=== PATIENT | female | born 1945 | race Caucasian/White ===

== ENCOUNTER 2020-09-02 07:24 | Emergency (ER) | payer MEDICARE, MEDICAID, SELFPAY ==
[2020-09-02 07:26] VITALS: BP 155/56; PULSE 82; RESP 18; TEMP 36.3; O2SAT 94; BMI 24.8
--- NOTE | 2020-09-02 07:31 | XR_ITS ---
WS: [id number] XR foot RT min 3V* [id number] REASON FOR EXAM: pain FINDINGS: The joint spaces of the forefoot, midfoot, and hindfoot are relatively well preserved for age. No fracture or other focal bony lesion is identified. No soft tissue abnormality is seen. Small enthesophyte at the insertion of Achilles tendon on the calcaneus. XR/XR foot RT min 3V* [id number] IMPRESSION: Small calcaneal enthesophyte as above. No other significant abnormality noted.
[2020-09-02 07:40] VITALS: BP 155/56; PULSE 74; RESP 16; O2SAT 92
--- NOTE | 2020-09-02 07:53 | ED_ITS ---
HPI - Extremity Problem General: Chief complaint: Extremity Injury, Lower Stated complaint: Right Foot is Swollen/Pain Time Seen by Provider: 09/02/20 07:29 History of Present Illness: HPI Narrative: 74-year-old female complaining of pain in the right foot, on the sole of the foot at the metatarsal heads. Patient states that she has had this off and on for some time and it is particularly worse today. She was outside doing more things on her feet yesterday. She denies any trauma denies any specific injury to the foot. She not previously had surgery on her feet. MD Complaint: extremity pain and joint pain Onset (ago): week(s) Pain Consistency: intermittent Location: right and lower extremity (Right foot) Quality: aching Radiation: none Relieving factors: rest Exacerbating factors: weight bearing and walking Associated symptoms: Reports arthralgias; Deny chest pain, fever(s), myalgias, rash or short of breath Review of Systems Const: Denies: fever(s) ENMT: Denies: throat pain, ear or mastoid pain, nasal discharge or nasal congestion Card: Denies: chest pain Resp: Denies: dyspnea, productive cough or non-productive cough GI: Denies: abdominal pain, nausea, vomiting, hematemesis, coffee ground emesis, diarrhea, constipation, bloating, hematochezia or melena : Denies: flank pain, difficulty voiding, dysuria, urinary frequency or urinary urgency Skin/Breast: Denies: rash Physical Exam Const: COMMON NORMALS: no acute distress GENERAL APPEARANCE: cooperative and comfortable ORIENTATION/CONSCIOUSNESS: Yes awake, Yes oriented to person, Yes oriented to place and Yes oriented to time HENMT: COMMON NORMALS: normocephalic, atraumatic and hearing grossly normal bilaterally HEAD & SCALP: normocephalic and atraumatic Extremity: COMMON NORMALS: normal to inspection, capillary refill normal, no clubbing, cyanosis or edema, no calf tenderness and no pedal edema NARRATIVE EXTREMITY EXAM: Homans negative. Tenderness on the plantar surface of the metatarsal heads no swelling no erythema first metatarsal joint is intact without erythema redness or exquisite tenderness on passive motion or palpation. There is no deformity of the foot there is no swelling in the calf there is no swelling in the foot itself there are some prominent vessels but no tender vessels no evidence of a superficial thrombophlebitis. There is no evidence of any lacerations or puncture wounds. Dorsalis pedis and posterior tibialis pulses are normal. Neuro: SENSORIUM/ORIENTATION: Yes oriented to person, Yes oriented to place and Yes oriented to time Skin: COMMON NORMALS: no rashes or lesions noted GENERAL SKIN EXAM: no rashes or lesions noted Course Vital Signs: Vital signs: Vital Signs Temperature 97.3 F L 09/02/20 07:26 Pulse Rate 71 09/02/20 08:07 Respiratory Rate 18 09/02/20 08:07 Blood Pressure 141/68 09/02/20 08:07 Pulse Oximetry 93 09/02/20 08:07 MDM - Extremity (Nontraumatic) MDM Narrative: Medical decision making narrative: X-ray is unremarkable for any acute fracture. We will go ahead and discharge patient home with diclofenac and refer to podiatry. Recommend rest. Case management to assist with referral to Dr. Adamson. Discharge Plan Discharge Patient Disposition: Home Clinical Impression: Metatarsalgia of right foot Condition: Stable Prescriptions: New diclofenac sodium 75 mg tablet,delayed release (DR/EC) 75 mg PO Q12H PRN (Reason: pain) Qty: 20 RF: 0 Discharge Orders: Discharge Order (Routine); Ordered 09/02/20 Ordered By: Dave Morse Referrals: Roverto Arnold MD [Primary Care Provider] - Discharge Diet: Usual diet Discharge Activity: Increase activity as tolerated Activity Restrictions/Additional Instructions: Case management will assist you in getting in to see the director of construction Dr. 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
[2020-09-02 08:07] VITALS: BP 141/68; PULSE 71; RESP 18; O2SAT 93
--- NOTE | 2020-09-02 08:11 | PC.NURSE ---
Patient requested counseling case manager call her daughter Gavi for appointments at [phone]
--- NOTE | 2020-09-02 09:39 | DCPLANNER ---
manager professional development had message to schedule a follow up appointment for patient with ortho. manager professional development called the ortho clinic, spoke with Pat, gave clinic patients information. manager professional development was told that patients information would be printed and reviewed. Clinic will call patient with appointment information.
--- NOTE | 2020-09-05 15:41 | DCPLANNER ---
Patient had a follow up appointment scheduled for 09.05.20 with ortho - patient did attend the appointment.
== END 2020-09-02 08:07 | disposition home or self-care (01) ==
PROVIDERS: Emergency Provider Family Medicine; PCP Family Medicine
DX: M77.41 Metatarsalgia, right foot (principal)
CPT/HCPCS: 12345; 73630; 99281; 99282

== ENCOUNTER 2020-09-06 01:20 | Observation (INO) | payer MEDICARE, MEDICAID, SELFPAY ==
[2020-09-06] VITALS (25 sets, daily range): BP systolic 105–199; BP diastolic 56–110; PULSE 64–96; RESP 13–24; TEMP 36.1–36.6; O2SAT 95–99; BMI 24.7
--- NOTE | 2020-09-06 01:30 | XR_ITS ---
WS: [id number] Portable AP upright chest, 09/06/2020 Clinical Data: syncope Comparison: Portable chest, 11/12/2018. Findings: No nodules, masses or effusions are seen. The heart is normal. The pulmonary vascularity is not increased. No pneumonia or pneumothorax is seen. Midline sternotomy sutures are present. There a re monitor leads on the chest wall. The aortic arch and descending aorta show calcification and tortu osity. XR/XR chest 1V portable [id number] Impression: Atherosclerosis.
--- NOTE | 2020-09-06 01:31 | ECG_ITS ---
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 Measurements Intervals [place] Rate: 84 P: 59 WI: 177 QRS: 22 QRSD: 89 T: 87 QT: 376 QTc: 445 Interpretive Statements SINUS RHYTHM ST DEVIATION AND MODERATE T-WAVE ABNORMALITY, CONSIDER ANTERIOR ISCHEMIA [-0.1+ mV T WAVE IN V3/V4] Compared to ECG 11/14/2018 09:19:31 Indeterminate axis no longer present T-wave abnormality still present Possible ischemia still present Electronically Signed On 09-06-2020 19:59:21 OYSTERMAN by Johnny Trevizo M.D. [id number] f
--- NOTE | 2020-09-06 01:46 | W.ED.CHESTPA ---
Documented by User: KEREN Musa 09/06/20 03:08 HPI - Chest Pain General: Chief Complaint: Chest Pain Stated Complaint: chest pain Time Seen by Provider: 09/06/20 01:21 Source: patient and EMS Mode of arrival: EMS Limitations: no limitations History of Present Illness: HPI narrative: 74-year-old female patient presents via EMS to the emergency department with onset of chest pain. She reports chest pain started between 8 and 9 PM tonight. States took 4 nitroglycerin tablets, 325 aspirin, chest pain resolved by the time EMS arrived. She denies chest pain upon exam, arrival to the ED. She has history of bypass surgery, coronary artery disease, reports recent successful stent procedure for CAD, grafted artery. Reports valvular disease, poor historian with cardiac disease. 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 Most recent stent placement March 2020, [facility] in [place]. 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 Onset (ago): hour(s) (4) Timing of current episode: constant and now resolved Prior episodes: Yes Onset: during rest (While crocheting) Pain location: substernal, left chest and right chest Pain radiation: left arm and left shoulder Severity: moderate Quality: aching, heaviness and similar to prior MA Relieving factors: nitroglycerin Exacerbating factors: nothing Associated symptoms: Reports dyspnea and palpitations; Deny abdominal pain, diaphoresis, fever(s), nausea or vomiting Treatment prior to arrival: aspirin and nitroglycerin Review of Systems General: Reports: 10 or more systems reviewed and unremarkable except in HPI and below Const: Denies: fever(s), chills or diaphoresis Eyes: Denies: blurry vision or eye redness ENMT: Denies: throat pain, dental pain or disequilibrium Card: Reports: chest pain, palpitations, swelling of feet/ankles and dyspnea on exertion; Denies: irregular heart rhythm Resp: Reports: dyspnea; Denies: wheezing or pain on inspiration GI: Denies: abdominal pain, nausea or vomiting : Denies: difficulty voiding or dysuria Musc: Denies: neck pain or back pain Skin/Breast: Denies: rash or pruritus Neuro: Denies: headache(s), weakness in extremities or behavioral changes Psych: Denies: anxiety or depression Mohit/Lymph: Denies: easy bruising PFSH ED PFSH: Medical History (Updated 09/06/20 @ 03:39 by Claudine Avina) Cholecystitis Coronary artery disease Diabetes Kidney disease, chronic, stage II (GFR 60-89 ml/min) Surgical History S/P CABG (coronary artery bypass graft) Family History (Updated 09/06/20 @ 03:01 by Emmanuelle Valdez MD) Other Family history non-contributory Social History Smoking and tobacco status: former smoker Physical Exam Const: COMMON NORMALS: no acute distress, patient oriented x3, healthy appearing and alert GENERAL APPEARANCE: cooperative, comfortable and well hydrated HENMT: COMMON NORMALS: normocephalic, Normal external nose present and moist oral mucous membranes HEAD & SCALP: normocephalic NOSE: Normal external nose present Eye: COMMON NORMALS: Equal, round and reactive pupils present and EOMs intact bilaterally GENERAL EYE: appearance normal, both eyes and all related structures PUPIL: Yes Equal, round and reactive pupils present Neck/C-Spine: COMMON NORMALS: full ROM and no lymphadenopathy GENERAL: Yes normal visual inspection and Yes trachea midline CERVICAL SPINE: Yes cervical ROM normal Lymph: LYMPHATIC: no lymphadenopathy noted Chest: COMMONS NORMALS: normal inspection of the chest and normal palpation of entire chest wall Resp: COMMON NORMALS: normal respiratory effort and clear to auscultation bilaterally EFFORT & INSPECTION: Yes able to speak in complete sentences AUSCULTATION: clear to auscultation bilaterally Cardio: COMMON NORMALS: regular rhythm, S1 normal heart sound present, S2 normal heart sound present and Peripheral pulses 2+ throughout RHYTHM: regular rhythm HEART SOUNDS: S1 normal heart sound present and S2 normal heart sound present PERIPHERAL PULSES: Peripheral pulses 2+ throughout GI: COMMON NORMALS: Normal to inspection, nondistended, normoactive bowel sounds present, Soft to palpation and non-tender INSPECTION: Yes normal to inspection PALPATION: Yes Soft to palpation : COMMON NORMALS: Yes no CVA tenderness BLADDER/KIDNEY EXAM: Yes no CVA tenderness Back/Pelvis: COMMON NORMALS: no CVA tenderness and thoracic and lumbar spine normal to inspection Extremity: COMMON NORMALS: normal to inspection and capillary refill normal Neuro: COMMON NORMALS: patient oriented x3 and no focal motor deficits SENSORIUM/ORIENTATION: Yes alert Psych: COMMON NORMALS: mental status grossly normal, Normal thought process present and cooperative ACTIVITY/MOTOR BEHAVIOR: Yes appropriate eye contact THOUGHT PROCESS: Normal thought process present Skin: COMMON NORMALS: no rashes or lesions noted and turgor normal GENERAL SKIN EXAM: no rashes or lesions noted and turgor normal Course ED course: 74-year-old female patient presents to the emergency department with chest pain, resolved after 4 nitroglycerin sublingual administered at home along with 324 mg aspirin. Upon arrival to the ED, chest pain resolved. Daughter is at bedside to assist with history. Transfer of care to Dr. Avina, 2-hour troponin pending. Vital Signs: Vital signs: Vital Signs Temperature 97.7 F 09/06/20 01:21 Pulse Rate 96 09/06/20 02:51 Respiratory Rate 17 09/06/20 02:51 Blood Pressure 156/86 09/06/20 02:51 Pulse Oximetry 96 09/06/20 02:51 MDM - Chest Pain Lab Data: Labs: Lab Results 09/06/20 09/06/20 09/06/20 Range/Units 01:49 01:49 01:49 WBC 8.6 (4.0-10.0) 10^3/ uL RBC 4.70 (4.1-5.3) 10^6/u L Hgb 12.6 (11.5-15.3) g/dL Hct 39.4 (37.0-47.0) % MCV 83.8 (81-99) fL MCH 26.8 L (28.0-34.0) pg MCHC 32.0 (30.0-36.0) g/dL RDW 13.6 (12.1-15.1) % Plt Count 219 (130-400) 10^3/c mm MPV 11.1 H (7.4-10.4) fL Neut % (Auto) 88.2 % Lymph % (Auto) 8.9 % [place] % (Auto) 2.4 % Eos % (Auto) 0.0 % Baso % (Auto) 0.0 % Neut # (Auto) 7.61 (1.8-7.7) 10^3/u L Lymph # (Auto) 0.8 (0.8-4.8) 10^3/u L [place] # (Auto) 0.2 (0.2-0.9) 10^3/u L Eos # (Auto) 0.0 (0.0-0.8) 10^3/u L Baso # (Auto) 0.0 (0.0-0.1) 10^3/u L Nucleated RBC % (a uto) 0 % Nucleated RBCs # 0.0 /100WBC D-Dimer (0-0.59) ug/mIFE U Sodium 138 (136-145) mmol/L Potassium 4.1 (3.5-5.1) mmol/L Chloride 100 (98-107) mmol/L Carbon Dioxide 25 (22-29) mmol/L Anion Gap 17.1 (5-19) BUN 18 (8-23) mg/dL Creatinine 1.3 H (0.5-0.9) mg/dL GFR Calculation Not Reportable Glucose 429 H (65-115) mg/dL Calculated Osmolal ity 306 H (285-295) mOsm/k g Calcium 10.4 (8.5-10.5) mg/dL Total Bilirubin 0.3 (0.15-1.2) mg/dL AST 26 (0-32) U/L ALT 21 (0-33) U/L Alkaline Phosphata se 57 (35-105) IU/L Troponin T Baselin e 23 H (0-10) ng/L NT-Pro-B Natriuret Pep 422 (0-450) pg/mL Total Protein 7.1 (6.6-8.7) g/dL Albumin 4.5 (3.5-5.2) g/dL Globulin 2.6 (1.3-4.6) g/dL 09/06/20 Range/Units 01:49 WBC (4.0-10.0) 10^3/ uL RBC (4.1-5.3) 10^6/u L Hgb (11.5-15.3) g/dL Hct (37.0-47.0) % MCV (81-99) fL MCH (28.0-34.0) pg MCHC (30.0-36.0) g/dL RDW (12.1-15.1) % Plt Count (130-400) 10^3/c mm MPV (7.4-10.4) fL Neut % (Auto) % Lymph % (Auto) % [place] % (Auto) % Eos % (Auto) % Baso % (Auto) % Neut # (Auto) (1.8-7.7) 10^3/u L Lymph # (Auto) (0.8-4.8) 10^3/u L [place] # (Auto) (0.2-0.9) 10^3/u L Eos # (Auto) (0.0-0.8) 10^3/u L Baso # (Auto) (0.0-0.1) 10^3/u L Nucleated RBC % (a uto) % Nucleated RBCs # /100WBC D-Dimer 0.42 (0-0.59) ug/mIFE U Sodium (136-145) mmol/L Potassium (3.5-5.1) mmol/L Chloride (98-107) mmol/L Carbon Dioxide (22-29) mmol/L Anion Gap (5-19) BUN (8-23) mg/dL Creatinine (0.5-0.9) mg/dL GFR Calculation Glucose (65-115) mg/dL Calculated Osmolal ity (285-295) mOsm/k g Calcium (8.5-10.5) mg/dL Total Bilirubin (0.15-1.2) mg/dL AST (0-32) U/L ALT (0-33) U/L Alkaline Phosphata se (35-105) IU/L Troponin T Baselin e (0-10) ng/L NT-Pro-B Natriuret Pep (0-450) pg/mL Total Protein (6.6-8.7) g/dL Albumin (3.5-5.2) g/dL Globulin (1.3-4.6) g/dL Imaging Data^: CXR: My impression: No acute findings, radiology interpretation pending EKG Data^: EKG 1: EKG interpretation date: 09/06/20 EKG interpretation time: 01:35 Prior EKG tracings: available for review Computer generated interpretation: Sinus rhythm, ST deviation and moderate T wave abnormality, abnormal ECG Discharge Plan Discharge Patient Disposition: Placed in Observation Clinical Impression: Chest pain Condition: Stable Prescriptions: No Action diclofenac sodium 75 mg tablet,delayed release (DR/EC) 75 mg PO Q12H PRN (Reason: pain) Qty: 20 RF: 0 Referrals: Roverto Arnold MD [Primary Care Provider] - Coding Level of Care Code ED Student Specialist for Chg Fwd Exam Comprehensive Documented by User: Claudine Avina 09/06/20 03:39 HPI - Chest Pain General: Chief Complaint: Chest Pain Stated Complaint: chest pain Time Seen by Provider: 09/06/20 01:21 PFS ED PFSH: Medical History (Updated 09/06/20 @ 03:39 by Claudine Avina) Cholecystitis Coronary artery disease Diabetes Kidney disease, chronic, stage II (GFR 60-89 ml/min) Surgical History S/P CABG (coronary artery bypass graft) Family History (Updated 09/06/20 @ 03:01 by Emmanuelle Valdez MD) Other Family history non-contributory Social History Smoking and tobacco status: former smoker Course Vital Signs: Vital signs: Vital Signs Temperature 97.7 F 09/06/20 01:21 Pulse Rate 96 09/06/20 02:51 Respiratory Rate 17 09/06/20 02:51 Blood Pressure 156/86 09/06/20 02:51 Pulse Oximetry 96 09/06/20 02:51 MDM - Chest Pain MDM Narrative: Medical decision making narrative: Patient is seen and examined by me, I agree with Nuvia Pritchard APN's assessment and plan. Patient has a history of cardiac disease receiving a stent just this last March. Patient's EKG is abnormal at baseline and her first troponin is slightly elevated. She is chest pain-free at this time. I endorsed the case to Dr. Valdez he is agreeable to admission for further evaluation and care. Lab Data: Attestation: I reviewed the patient's lab results. Labs: Lab Results 09/06/20 09/06/20 09/06/20 Range/Units 01:49 01:49 01:49 WBC 8.6 (4.0-10.0) 10^3/ uL RBC 4.70 (4.1-5.3) 10^6/u L Hgb 12.6 (11.5-15.3) g/dL Hct 39.4 (37.0-47.0) % MCV 83.8 (81-99) fL MCH 26.8 L (28.0-34.0) pg MCHC 32.0 (30.0-36.0) g/dL RDW 13.6 (12.1-15.1) % Plt Count 219 (130-400) 10^3/c mm MPV 11.1 H (7.4-10.4) fL Neut % (Auto) 88.2 % Lymph % (Auto) 8.9 % [place] % (Auto) 2.4 % Eos % (Auto) 0.0 % Baso % (Auto) 0.0 % Neut # (Auto) 7.61 (1.8-7.7) 10^3/u L Lymph # (Auto) 0.8 (0.8-4.8) 10^3/u L [place] # (Auto) 0.2 (0.2-0.9) 10^3/u L Eos # (Auto) 0.0 (0.0-0.8) 10^3/u L Baso # (Auto) 0.0 (0.0-0.1) 10^3/u L Nucleated RBC % (a uto) 0 % Nucleated RBCs # 0.0 /100WBC D-Dimer (0-0.59) ug/mIFE U Sodium 138 (136-145) mmol/L Potassium 4.1 (3.5-5.1) mmol/L Chloride 100 (98-107) mmol/L Carbon Dioxide 25 (22-29) mmol/L Anion Gap 17.1 (5-19) BUN 18 (8-23) mg/dL Creatinine 1.3 H (0.5-0.9) mg/dL GFR Calculation Not Reportable Glucose 429 H (65-115) mg/dL Calculated Osmolal ity 306 H (285-295) mOsm/k g Calcium 10.4 (8.5-10.5) mg/dL Total Bilirubin 0.3 (0.15-1.2) mg/dL AST 26 (0-32) U/L ALT 21 (0-33) U/L Alkaline Phosphata se 57 (35-105) IU/L Troponin T Baselin e 23 H (0-10) ng/L NT-Pro-B Natriuret Pep 422 (0-450) pg/mL Total Protein 7.1 (6.6-8.7) g/dL Albumin 4.5 (3.5-5.2) g/dL Globulin 2.6 (1.3-4.6) g/dL 09/06/20 Range/Units 01:49 WBC (4.0-10.0) 10^3/ uL RBC (4.1-5.3) 10^6/u L Hgb (11.5-15.3) g/dL Hct (37.0-47.0) % MCV (81-99) fL MCH (28.0-34.0) pg MCHC (30.0-36.0) g/dL RDW (12.1-15.1) % Plt Count (130-400) 10^3/c mm MPV (7.4-10.4) fL Neut % (Auto) % Lymph % (Auto) % [place] % (Auto) % Eos % (Auto) % Baso % (Auto) % Neut # (Auto) (1.8-7.7) 10^3/u L Lymph # (Auto) (0.8-4.8) 10^3/u L [place] # (Auto) (0.2-0.9) 10^3/u L Eos # (Auto) (0.0-0.8) 10^3/u L Baso # (Auto) (0.0-0.1) 10^3/u L Nucleated RBC % (a uto) % Nucleated RBCs # /100WBC D-Dimer 0.42 (0-0.59) ug/mIFE U Sodium (136-145) mmol/L Potassium (3.5-5.1) mmol/L Chloride (98-107) mmol/L Carbon Dioxide (22-29) mmol/L Anion Gap (5-19) BUN (8-23) mg/dL Creatinine (0.5-0.9) mg/dL GFR Calculation Glucose (65-115) mg/dL Calculated Osmolal ity (285-295) mOsm/k g Calcium (8.5-10.5) mg/dL Total Bilirubin (0.15-1.2) mg/dL AST (0-32) U/L ALT (0-33) U/L Alkaline Phosphata se (35-105) IU/L Troponin T Baselin e (0-10) ng/L NT-Pro-B Natriuret Pep (0-450) pg/mL Total Protein (6.6-8.7) g/dL Albumin (3.5-5.2) g/dL Globulin (1.3-4.6) g/dL Discharge Plan Discharge Patient Disposition: Placed in Observation Clinical Impression: Chest pain Condition: Stable Prescriptions: No Action diclofenac sodium 75 mg tablet,delayed release (DR/EC) 75 mg PO Q12H PRN (Reason: pain) Qty: 20 RF: 0 Referrals: Roverto Arnold MD [Primary Care Provider] - Coding Level of Care Code ED Student Specialist for Chg Fwd Exam Comprehensive
[2020-09-06 01:59] LABS: Hematocrit 39.4 % (37.0-47.0); Hemoglobin 12.6 g/dL (11.5-15.3); Lymphocytes # 0.8 10^3/uL (0.8-4.8); Lymphocytes % 8.9 %; Mean Corpuscular Hemoglobin 26.8 pg (28.0-34.0); Mean Corpuscular Volume 83.8 fL (81-99); Mean Platelet Volume 11.1 fL (7.4-10.4); Monocytes # 0.2 10^3/uL (0.2-0.9); Monocytes % 2.4 %; Neutrophils # 7.61 10^3/uL (1.8-7.7); Neutrophils % 88.2 %; Nucleated Red Blood Cells % 0 %; Platelet Count 219 10^3/cmm (130-400); Red Cell Distribution Width 13.6 % (12.1-15.1); White Blood Count 8.6 10^3/uL (4.0-10.0)
[2020-09-06 02:25] LABS: Troponin(5th) Baseline 23 ng/L (0-10)
[2020-09-06 02:34] LABS: Alanine Aminotransferase 21 U/L (0-33); Albumin Level 4.5 g/dL (3.5-5.2); Alkaline Phosphatase 57 IU/L (35-105); Anion Gap 17.1 (5-19); Aspartate Amino Transferase 26 U/L (0-32); Blood Urea Nitrogen 18 mg/dL (8-23); Calcium 10.4 mg/dL (8.5-10.5); Carbon Dioxide 25 mmol/L (22-29); Chloride 100 mmol/L (98-107); Globulin 2.6 g/dL (1.3-4.6); Glucose 429 mg/dL (65-115); NT Pro B Type Natriuretic Pept 422 pg/mL (0-450); Osmolality Calculated 306 mOsm/kg (285-295); Potassium 4.1 mmol/L (3.5-5.1); Sodium 138 mmol/L (136-145); Total Bilirubin 0.3 mg/dL (0.15-1.2); Total Protein 7.1 g/dL (6.6-8.7)
--- NOTE | 2020-09-06 02:51 | PM.HP ---
Providers/Chief Complaint Primary Care Provider: Roverto Arnold MD Chief Complaint: chest pain History of Present Illness Yadira Cruz is a 74 year old female who has history of coronary disease, four-vessel bypass(2009), chronic kidney disease(baseline creatinine 1.4) presenting to the hospital with chief complaint of chest pain. Patient is stating that her chest pain started around 9 PM while she was at rest crocheting, it was substernal radiating towards her left shoulder and left arm moderate intensity, similar to prior NV, she took 4 sublingual nitroglycerin which resolved her symptoms. This chest pain was not associated with nausea, vomiting or diaphoresis. This chest pain was excruciating, she thought she is going to . Cardiac cath June 2015 at [facility]. She was found to have small caliber left main. LAD with proximal 40-50% stenosis. Diagonal was grafted and sleetmute vessel with 80% stenosis. Occluded circumflex. RCA with large posterolateral segment with totally occluded PDA. The vein graft bifurcating to PDA and left circumflex. Distal segment of vein graft to posterior descending with 50% stenosis. 95% flow-limiting stenosis KUSHAL 2 flow in Y portion of vein graft to left circumflex. Widely patent vein graft to diagonal vessel. ORTIZ not grafted. Balloon angioplasty followed by drug-eluting stent 2.25 x 12 mm to vein graft to left circumflex Diagnostics in the ER revealed hypertension, tachycardia, was saturating well on room air, no active chest pain, troponin XX 3, EKG showing ST depression in the lateral leads which are not new Review of Systems Const: Denies: fever(s) Eyes: Denies: change in vision ENMT: Denies: throat pain Card: Reports: chest pain; Denies: syncope, pre-syncope or orthopnea Resp: Denies: dyspnea GI: Denies: abdominal pain : Denies: flank pain Musc: Denies: neck pain Skin/Breast: Denies: rash Neuro: Denies: headache(s) Psych: Denies: anxiety Endo: Denies: polyuria Mohit/Lymph: Denies: easy bruising All/Imm: Denies: urticaria Medications/Allergies Home Medications Medication Instructions Recorded Confirmed Last Taken Type diclofenac sodium 75 mg PO Q12H PRN #20 tab 09/02/20 Unknown Rx Allergies Allergy/AdvReac Type Severity Reaction Status Date / Time codeine Allergy ADR-Vomitin Verified 09/02/20 07:33 g epinephrine Allergy ALGY-Difficulty Verified 09/02/20 07:33 [From Primatene Mist] Breathing morphine Allergy ALGY-Redness Verified 09/02/20 07:33 of Skin PFSH Acute PFSH: Medical History Cholecystitis Coronary artery disease Diabetes GERD (gastroesophageal reflux disease) Hypothyroidism Kidney disease, chronic, stage II (GFR 60-89 ml/min) Peripheral neuropathy Stateline spotted fever Sleep apnea Surgical History History of right-sided carotid endarterectomy Hx of cholecystectomy S/P CABG (coronary artery bypass graft) Patient reports 3 times Family History Other Family history non-contributory Social History Smoking and tobacco status: former smoker Alcohol intake: never Substance/Drug Use: never Household members: family Housing: House Vitals/I&O/Wt Last Vital Signs Temp 97.7 F 09/06/20 01:21 Pulse 84 09/06/20 01:40 Resp 20 H 09/06/20 01:40 BP 168/98 09/06/20 01:40 Pulse Ox 96 09/06/20 01:40 Weight last 48 hrs Weight 61.235 kg Physical Exam Narrative: EXAM NARRATIVE: elderly female No acute respiratory distress No active chest pain Saturating well on 3L Nasal cannula Appears well-hydrated S1, S2, systolic murmur Abdomen soft nondistended bowel sounds present, no CVA tenderness Neurologically nonfocal exam EOMI, PERRLA Appropriate mood and affect No lower extremity edema gangrene or ulcer No signs of dehydration Data : 09/06/20 01:49 09/06/20 01:49 A&P Assessment and plan (1) Unstable angina: unstable angina Established coronary disease with history of CABG, chronic angina Chest pain resolved with nitroglycerin, EKG showing ST depression in anterolateral leads and lead II these changes are not new as compared to previous EKG No active chest pain, first troponin 23, Hemodynamically stable, will check D-dimer I will go ahead and increase her antianginal medication,, increase Imdur dose to 60 mg from 30mg, Ranexa dose to 1000mg twice daily, Her heart rate and blood pressure is not optimally controlled considering her multiple vessel coronary disease if her heart rate could be between 70-80 and blood pressure less than 130mmhg With increasing antianginal medication dosages monitor for any signs of bradycardia or hemodynamic changes I would not repeat stress test, consider cardiology consult in the morning for further recommendations Status: Acute Additional A&P Information Hypothyroidism: Continue home regimen of 75 mcg levothyroxine Type 2 diabetes: Moderate sliding scale DVT prophylaxis: Heparin Chronic kidney disease: Creatinine at baseline Full code Patient is not sure about dosages however I have reviewed previous records and added medications, kindly touch base with her pharmacy to get accurate dosages in the morning Attestations Medical Necessity Statement*: Anticipating discharge in less than 48 hours, I am monitoring her on telemetry because of recent increase in her antianginal medications to monitor hemodynamic effects Time Spent in Patient Care: (>than 50% of time spent in counselling and/or direct pt care on unit). 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
[2020-09-06 03:31] LABS: D Dimer 0.42 ug/mIFEU (0-0.59)
--- NOTE | 2020-09-06 03:31 | ECG_ITS ---
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 Measurements Intervals [place] Rate: 93 P: 70 IA: 180 QRS: 40 QRSD: 91 T: 69 QT: 394 QTc: 491 Interpretive Statements SINUS RHYTHM WITH SINUS ARRHYTHMIA INDETERMINATE AXIS NONSPECIFIC ST & T-WAVE ABNORMALITY Compared to ECG 09/06/2020 01:33:25 Indeterminate axis now present Possible ischemia no longer present T-wave abnormality still present Electronically Signed On 09-06-2020 20:21:05 VISUAL TRAINING AIDE by Johnny Trevizo M.D. [id number]
--- NOTE | 2020-09-06 05:00 | PC.SOCIAL ---
ED CM Visit: Patient lives with her spouse, Melecio. Her daughter Regina lives close and helps her with all needs. She shops for her, sets up her medication, and helps with housework. Has oxygen and CPAP from [facility]. Ask that we call to see if we can expedite process of her getting an Inogen portable from them. They have been trying to get it since the big tanks are hard for her to carry around. It had been ordered by Dr. Arnold. Daughter will pick her up. If she is here past visiting tomorrow they would like to complete a new advanced directive. She wants to make sure her daughter is listed as the one to make decisions, Regina Haney.
--- NOTE | 2020-09-06 07:30 | ECG_ITS ---
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 Measurements Intervals [place] Rate: 75 P: 3 MO: 166 QRS: 24 QRSD: 89 T: 97 QT: 413 QTc: 462 Interpretive Statements SINUS RHYTHM NONSPECIFIC ST & T-WAVE ABNORMALITY Compared to ECG 09/06/2020 03:33:21 Sinus arrhythmia no longer present Indeterminate axis no longer present T-wave abnormality still present Electronically Signed On 09-06-2020 20:17:37 ETHANOL QUALITY LEADER by Johnny Trevizo M.D. [id number]
[2020-09-06 08:24] LABS: Troponin 5 6HR 44.07 ng/L (0-10)
[2020-09-06 08:31] LABS: Glucose Point of Care 277 mg/dL (70-110)
[2020-09-06] MEDS: aspirin 81 mg EC Tablet PO (08:41)
[2020-09-06] MEDS: metoprolol succinate ER (24 HR) 25 mg Tablet PO (08:41)
[2020-09-06] MEDS: heparin 5,000 unit/mL INJ 1 mL 5000 UNIT SUBCUT (08:42)
[2020-09-06] MEDS: isosorbide mononitrate ER 60 mg Tablet PO (08:42)
[2020-09-06] MEDS: ranolazine (12HR) 500 mg Tablet 1000 MG PO ×2 (08:42→17:47)
[2020-09-06 08:59] LABS: Troponin 5 6HR Delta 21.07 ng/L (0-12)
--- NOTE | 2020-09-06 09:47 | USCV_ITS ---
Yadira Cruz Age: 74 Gender: F : 1945 Exam Date: 09/06/2020 10:08 Ordering Phys: Shyann Roberson MD Technologist: Rene Ly Exam Location: [facility] [place] Indication: MURMUR BP: 152 / 67 HR: 86 Rhythm: Sinus Technical Quality: Fair MEASUREMENTS (Male / Female) Normal Values 2D ECHO LV Diastolic Diameter PLAX 2.5 cm 4.2 - 5.9 / 3.9 - 5.3 cm LV Systolic Diameter PLAX 2.2 cm IVS Diastolic Thickness 0.8 cm 0.6 - 1.0 / 0.6 - 0.9 cm IVS Systolic Thickness 1.1 cm LVPW Diastolic Thickness 1.0 cm 0.6 - 1.0 / 0.6 - 0.9 cm LVPW Systolic Thickness 1.2 cm LVOT Diameter 2.0 cm LV Ejection Fraction 2D Teich 27.9 % LV Ejection Fraction MOD 2C 71.5 % LV Ejection Fraction 2C AL 71.2 % LA Diameter 3.5 cm LA Width 3.0 cm LA Height 4.4 cm RA Width 2.7 cm RA Height 3.7 cm Aorta at Sinotubular Diameter 2.5 cm M-MODE LV Diastolic Diameter MM 5.6 cm 4.2 - 5.9 / 3.9 - 5.3 cm LV Systolic Diameter MM 3.6 cm LV Ejection Fraction MM Teich 63.8 % IVS Diastolic Thickness MM 0.9 cm 0.6 - 1.0 / 0.6 - 0.9 cm IVS Systolic Thickness MM 1.3 cm LVPW Diastolic Thickness MM 1.3 cm 0.6 - 1.0 / 0.6 - 0.9 cm LVPW Systolic Thickness MM 1.5 cm RV Diastolic Diameter MM 1.4 cm Aortic Annulus Diameter 3.2 cm LA Ao Ratio MM 1.1 MV E Point Septal Separation 1.4 cm DOPPLER AV Peak Velocity 161.0 cm/s LVOT Peak Velocity 94.0 cm/s AV Area Cont Eq vti 2.2 cm squared AV Area Cont Eq pk 1.8 cm squared MV Area PHT 5.0 cm squared Mitral E to A Ratio 0.7 MV E' Velocity 36.0 cm/s Mitral E to MV E' Ratio 7.8 Mitral E to LV E' Lateral Ratio 6.8 Mitral E to LV E' Septal Ratio 9.5 TR Peak Velocity 229.0 cm/s TR Peak Gradient 21.0 mmHg TV Peak E Velocity 78.0 cm/s Right Atrial Pressure 3.0 mmHg Pulmonary Artery Systolic Pressu 24.0 mmHg FINDINGS Left Ventricle Normal left ventricular size and systolic function, EF 77 %. Mild left ventricular hypertrophy. Relative hypokinesia of the mid and apical septal segment . grade I/IV diastolic dysfunction (abnormal relaxation filling pattern), normal to mildly elevated filling pressures. Right Ventricle The right ventricle is normal in size and function. Right Atrium The right atrium is normal in size. Left Atrium Mildly increased left atrial size. Mitral Valve Mild mitral annular calcification. Aortic Valve Thickened aortic valve. Tricuspid Valve Trace tricuspid valve regurgitation. Pulmonic Valve Pulmonic valve not well visualized. Pericardium Normal pericardium without effusion. Aorta Normal ascending aorta dimension. CONCLUSIONS Normal left ventricular size and systolic function, EF 77 %. Mild left ventricular hypertrophy. Relative hypokinesia of the mid and apical septal segment . grade I/IV diastolic dysfunction (abnormal relaxation filling pattern), normal to mildly elevated filling pressures. Mildly increased left atrial size. Thickened aortic and mitral valves with mild mitral annular calcification Trace tricuspid valve regurgitation. There is no pericardial effusion. There are no intracardiac masses. Compared to the study from my 06/03/2015, there may not be a significant change Dr Moris Gee MD FACC (Electronically Signed) Final Date: 06 September 2020 13:18 S
--- NOTE | 2020-09-06 10:03 | P.CONIM_ITS ---
Providers/Reason For Consult Consulting Physican/Specialty*: VLAD Gerard/cardiology Reason for Consult*: Patient with history of coronary artery disease, previous coronary artery bypass surgery and PCI, presenting with chest pain and elevated troponin T Attending Physician: Shyann Roberson MD Primary Care Provider: Roverto Arnold MD History of Present Illness History of Present Illness Yadira Cruz is a 74 year old female with a previous history of coronary artery disease, status post coronary artery bypass surgery, status post PCI of the vein graft to circumflex artery, is now present with complaints of prolonged episode of chest pain. Ms. Cruz has a complicated cardiovascular history. According to her daughter, she had so far, for open heart surgeries and 3 times stent placement. The first open heart surgery was done in [place]. The other 3 were done at the [facility] along with the PCI's. She had the most recent PCI in April of this year. The details of these are not available. According the patient, she has very small veins. She also had some bleeding complications after the last PCI. She has been having chest pains off and on for the last many years. Usually these pains go away with 1 sublingual nitro. Last night, she had the pain more severe and lasted longer. The first episode of pain was 8/10 intensity. It was mid substernal, radiating to the shoulder and the left arm. She might have had some associated shortness of breath. She took 1 sublingual nitro. After couple of minutes, the pain started subsiding. She had the pain returned after 30 minutes or so. This time it was more intense. She took another sublingual nitro. This time again, the pain went away in couple of minutes, to return back within 30 minutes or so. She had four similar episodes of pain requiring a total of 4 sublingual nitroglycerin tablets. Because of the recurrent episodes of chest pains with more severe intensity of greater than 10/10, she decided to come to the hospital. She also took four full aspirin at home. After taking the aspirin, she has not had any recurrence of pain. No recurrence of chest pain, since hospital admission. She denies any fever or chills. No cough. No other specific complaints at this time. Patient is known to have high blood pressure, dyslipidemia, old CVA, type 2 diabetes and? COPD. She has been compliant with medications. She is being followed up at the [facility]. She been to [facility] and [facility]. Cardiac catheterization at the [facility], in June 2015 She was found to have small caliber left main. LAD with proximal 40-50% stenosis. Diagonal was grafted and venetie vessel with 80% stenosis. Occluded circumflex. RCA with large posterolateral segment with totally occluded PDA. The vein graft bifurcating to PDA and left circumflex. Distal segment of vein graft to posterior descending with 50% stenosis. 95% flow-limiting stenosis KUSHAL 2 flow in Y portion of vein graft to left circumflex. Widely patent vein graft to diagonal vessel. ORTIZ not grafted. Balloon angioplasty followed by drug-eluting stent 2.25 x 12 mm to vein graft to left circumflex Apparently we do not have the cardiac colorization data from April 2020 Review of Systems Narrative: CONSTITUTIONAL: No fever or chills. EYES: No blurring of vision or other visual disturbances lately. ENT: No hoarseness of voice, auditory disturbances or sore throat. CARDIOVASCULAR: As mentioned above. RESPIRATORY: No significant cough. GASTROINTESTINAL: No hematemesis or melena. GENITOURINARY: No dysuria or hematuria. INTEGUMENTARY: No skin rashes or history of skin cancer. NEURO: History of CVA PSYCHIATRIC: No history of psychosis or major depression. HEMATOLOGIC: No bleeding disorders or significant anemia. ENDOCRINE: History of type 2 diabetes MUSCULOSKELETAL: No recent joint pain or swelling. ALLERGY/IMMUNOLOGY: As mentioned above. Meds/Allergies Home Medications and Allergies Home Medications Medication Instructions Recorded Confirmed Last Taken Type DILT-CD 120 mg PO DAILY 09/06/20 09/06/20 09/04/20 09:00 History Levemir U-100 Insulin 40 unit SUBCUT BID 09/06/20 09/06/20 09/04/20 21:00 History albuterol 90 mcg INHALATION Q6H PRN 09/06/20 09/06/20 Unknown History aspirin 81 mg PO DAILY 09/06/20 09/06/20 Unknown History clopidogrel 75 mg PO DAILY 09/06/20 09/06/20 Unknown History diltiazem HCl 120 mg PO DAILY 09/06/20 09/06/20 Unknown History empagliflozin [Jardiance] 10 mg PO DAILY 09/06/20 09/06/20 09/04/20 09:00 History fenofibrate nanocrystallized 145 mg PO DAILY 09/06/20 09/06/20 Unknown History furosemide 20 mg PO DAILY 09/06/20 09/06/20 Unknown History furosemide 20 mg PO DAILY 09/06/20 09/06/20 09/04/20 09:00 History insulin lispro [Humalog KwikPen See Rx Instructions .ROUTE .COMPLEX 09/06/20 09/06/20 Unknown History Insulin] isosorbide mononitrate 30 mg PO DAILY 09/06/20 09/06/20 Unknown History isosorbide mononitrate 30 mg PO DAILY 09/06/20 09/06/20 09/04/20 History levothyroxine 50 mcg PO DAILY 09/06/20 09/06/20 Unknown History metoprolol tartrate 12.5 mg PO BID 09/06/20 09/06/20 Unknown History metoprolol tartrate 12.5 mg PO BID 09/06/20 09/06/20 09/04/20 21:00 History multivitamin 1 tab PO DAILY 09/06/20 09/06/20 Unknown History pantoprazole 40 mg PO DAILY 09/06/20 09/06/20 Unknown History pantoprazole 40 mg PO DAILY 09/06/20 09/06/20 09/04/20 09:00 History potassium chloride 10 meq PO BID 09/06/20 09/06/20 Unknown History ranolazine 500 mg PO BID 09/06/20 09/06/20 Unknown History ranolazine 500 mg PO DAILY 09/06/20 09/06/20 09/04/20 History ropinirole 2 mg PO DAILY 09/06/20 09/06/20 Unknown History ropinirole [Requip] 2 mg PO DAILY 09/06/20 09/06/20 09/04/20 21:00 History rosuvastatin 10 mg PO DAILY 09/06/20 09/06/20 Unknown History rosuvastatin 10 mg PO DAILY 09/06/20 09/06/20 09/04/20 History Allergies Allergy/AdvReac Type Severity Reaction Status Date / Time codeine Allergy ADR-Vomitin Verified 09/02/20 07:33 g epinephrine Allergy ALGY-Difficulty Verified 09/02/20 07:33 [From Primatene Mist] Breathing morphine Allergy ALGY-Redness Verified 09/02/20 07:33 of Skin Current Medications Current Medications Generic Name Dose Route Start Last Admin Trade Name Gregory PRN Reason Stop Dose Admin Aspirin 81 mg 09/06/20 09:00 09/06/20 08:41 Aspirin 81 Mg Ec Tablet PO 81 mg DAILY JOSEF Administration Heparin Sodium (Beef Lung) 5,000 unit 09/06/20 09:00 09/06/20 08:42 Heparin 5,000 Unit/Ml Inj 1 Ml SUBCUT 5,000 unit Q8H JOSEF Administration Insulin Aspart 0 unit 09/06/20 08:23 09/06/20 09:08 Insulin Aspart 100 Unit/1 Ml SUBCUT 10 unit WM&BEDTIME JOSEF Administration Protocol Isosorbide Mononitrate 60 mg 09/06/20 09:00 09/06/20 08:42 Isosorbide Mononitrate Er 60 Mg Tablet PO 60 mg DAILY JOSEF Administration Metoprolol Succinate 25 mg 09/06/20 09:00 09/06/20 08:41 Metoprolol Succinate Er (24 Hr) 25 Mg Tablet PO 25 mg DAILY JOSEF Administration Ranolazine 1,000 mg 09/06/20 09:00 09/06/20 08:42 Ranolazine (12hr) 500 Mg Tablet PO 1,000 mg BID JOSEF Administration PFSH Acute PFSH: Medical History Cholecystitis Coronary artery disease Diabetes GERD (gastroesophageal reflux disease) Hypothyroidism Kidney disease, chronic, stage II (GFR 60-89 ml/min) Peripheral neuropathy [facility] Sleep apnea Surgical History History of right-sided carotid endarterectomy Hx of cholecystectomy S/P CABG (coronary artery bypass graft) Patient reports 3 times Family History Other Family history non-contributory Social History Smoking and tobacco status: former smoker Alcohol intake: never Substance/Drug Use: never Household members: family Housing: House Vitals/I&O/Wt Last Vital Signs Temp 97.7 F 09/06/20 01:21 Pulse 78 09/06/20 06:51 Resp 18 09/06/20 06:51 BP 148/71 09/06/20 06:51 Pulse Ox 96 09/06/20 06:51 Weight last 48 hrs Weight 135 lb Physical Exam Narrative: EXAM NARRATIVE: GENERAL: The patient is alert and oriented times three. Not in any acute distress. HEENT: No significant pallor, icterus or lymphadenopathy. The pupils are reactant to light. Oral cavity: There are no mucous membrane lesions. Funduscopic examination: The fundus is not visualized NECK: Trachea appears to be central. No masses noted. No JVD or thyromegaly appreciated. No carotid bruit. RESPIRATORY: Chest is symmetrical. No intercostals muscle retraction or any accessory muscle activation. There is no chest wall tenderness. Breath sounds are heard bilaterally. No rales or rhonchi heard. No evidence of any consolidation. BREASTS: Deferred. HEART: The PMI is in the 5th left intercostals space just in the midclavicular line. No palpable precordial events. S1 and S2 are normal. No S3 or S4 heard. Short systolic murmur in the mitral area. No pericardial rub or any click heard. ABDOMEN: No vessel pulsations or distention. No tenderness. No organomegaly appreciated. No abdominal bruit. Bowel sounds are normally heard. : Deferred. RECTAL: Deferred. LYMPHATIC: No lymphadenopathy noted in the neck or groin. EXTREMITIES: No edema or cyanosis. No clubbing. The dorsalis pedis and posterior pulses are palpable but weak bilaterally. MUSCULOSKELETAL: No acute joint deformities or swelling SKIN: There are no significant scars or skin rash noted. NEUROPSYCHIATRIC: The patient is alert and oriented x3. Appears to be in a good mood. The higher functions are grossly within normal limits. No tremors or rigidity noted. Data Labs: Other Labs: Laboratory Last Values WBC 8.6 10^3/uL (4.0- 10.0) 09/06/20 01:49 RBC 4.70 10^6/uL (4.1 -5.3) 09/06/20 01:49 Hgb 12.6 g/dL (11.5-1 5.3) 09/06/20 01:49 Hct 39.4 % (37.0-47.0 ) 09/06/20 01:49 MCV 83.8 fL (81-99) 09/06/20 01:49 MCH 26.8 pg (28.0-34. 0) L 09/06/20 01:49 MCHC 32.0 g/dL (30.0-3 6.0) 09/06/20 01:49 RDW 13.6 % (12.1-15.1 ) 09/06/20 01:49 Plt Count 219 10^3/cmm (130 -400) 09/06/20 01:49 MPV 11.1 fL (7.4-10.4 ) H 09/06/20 01:49 Neut % (Auto) 88.2 % 09/06/20 01:49 Lymph % (Auto) 8.9 % 09/06/20 01:49 Shackelford % (Auto) 2.4 % 09/06/20 01:49 Eos % (Auto) 0.0 % 09/06/20 01:49 Baso % (Auto) 0.0 % 09/06/20 01:49 Neut # (Auto) 7.61 10^3/uL (1.8 -7.7) 09/06/20 01:49 Lymph # (Auto) 0.8 10^3/uL (0.8- 4.8) 09/06/20 01:49 Shackelford # (Auto) 0.2 10^3/uL (0.2- 0.9) 09/06/20 01:49 Eos # (Auto) 0.0 10^3/uL (0.0- 0.8) 09/06/20 01:49 Baso # (Auto) 0.0 10^3/uL (0.0- 0.1) 09/06/20 01:49 Nucleated RBC % (a uto) 0 % 09/06/20 01:49 Nucleated RBCs # 0.0 /100WBC 09/06/20 01:49 D-Dimer 0.42 ug/mIFEU (0- 0.59) 09/06/20 01:49 Sodium 138 mmol/L (136-1 45) 09/06/20 01:49 Potassium 4.1 mmol/L (3.5-5 .1) 09/06/20 01:49 Chloride 100 mmol/L (98-10 7) 09/06/20 01:49 Carbon Dioxide 25 mmol/L (22-29) 09/06/20 01:49 Anion Gap 17.1 (5-19) 09/06/20 01:49 BUN 18 mg/dL (8-23) 09/06/20 01:49 Creatinine 1.3 mg/dL (0.5-0. 9) H 09/06/20 01:49 GFR Calculation Not Reportable 09/06/20 01:49 Glucose 429 mg/dL (65-115 ) H 09/06/20 01:49 POC Glucose 277 mg/dL (70-110 ) 09/06/20 08:28 Calculated Osmolal ity 306 mOsm/kg (285- 295) H 09/06/20 01:49 Calcium 10.4 mg/dL (8.5-1 0.5) 09/06/20 01:49 Total Bilirubin 0.3 mg/dL (0.15-1 .2) 09/06/20 01:49 AST 26 U/L (0-32) 09/06/20 01:49 ALT 21 U/L (0-33) 09/06/20 01:49 Alkaline Phosphata se 57 IU/L (35-105) 09/06/20 01:49 Troponin T Baselin e 23 ng/L (0-10) H 09/06/20 01:49 Troponin T 120 Min francy 32.80 ng/L (0-10) H 09/06/20 03:55 Delta Troponin T 9.80 ABS# (0-10) 09/06/20 03:55 Troponin T Hi Sens 6Hr 44.07 ng/L (0-10) H 09/06/20 07:43 Troponin T Hi Sens 6Hr Delta 21.07 ng/L (0-12) H* 09/06/20 07:43 NT-Pro-B Natriuret Pep 422 pg/mL (0-450) 09/06/20 01:49 Total Protein 7.1 g/dL (6.6-8.7 ) 09/06/20 01:49 Albumin 4.5 g/dL (3.5-5.2 ) 09/06/20 01:49 Globulin 2.6 g/dL (1.3-4.6 ) 09/06/20 01:49 EKG^: EKG 1: My Interpretation: Sinus rhythm with a sinus arrhythmia. Diffuse nonspecific ST-T changes. A&P Assessment and plan (1) Atherosclerotic heart disease of ven[place] coronary artery with unstable angina pectoris: The patient is a clinical features are consistent with an unstable angina. She has clinical features of a non-ST elevation myocardial infarction. The EKG changes are nonspecific. Status: Acute (2) Non-ST elevation myocardial infarction (NSTEMI): Patient may be treated with subcu Lovenox, nitrates, aspirin, Plavix, beta-ronen and the other current medications. Patient may be started on heparin IV, weight-based Status: Acute (3) Benign essential hypertension with target blood pressure below 140/90: Her blood pressure is currently of stage II. The antihypertensive medications need to be optimized. I may add amlodipine 5 mg p.o. daily in addition to the current medications. Status: Acute (4) Dyslipidemia associated with type 2 diabetes mellitus: Status: Acute (5) Chronic kidney disease (CKD): The creatinine was 1.3. Her kidney function need to be closely monitored. She may be given IV fluid , half-normal saline 75 cc/h. Status: Acute Qualifiers: Chronic kidney disease stage: stage 3 (moderate) Chronic kidney disease stage 3 subtype: stage 3a (GFR 45-59) Qualified Code(s): N18.31 - Chronic kidney disease, stage 3a Additional A&P Information An echocardiogram was done this morning. I will be reviewing the study. Based on the clinical progress on the results of the above, further recommendations will be made. In view of her history and the current clinical presentation, in order to further evaluate her coronary status, she may benefit from a cardiac catheterization, to further evaluate the coronary status as well as the graft status. This was discussed with the patient in detail which she understood well. Patient and the family is wanting to go back to [facility] to have further evaluation management of her condition, especially in view of her complex cardiovascular history. I contacted Dr. Hernandez at the [facility] in [place] and discussed the patient case. Dr. Hernandez is willing to accept the patient, for further evaluation management. I appraised Dr. Roberson about the patient's request and also Dr. Hernandez's willingness to accept this patient in transfer for further evaluation management. Dr. Bartholomew will make the arrangements for her transfer Thank you for the opportunity to evaluate this patient make these recommendations. Consult Attestations Medical Necessity Statement: Patient requires continued hospital stay for close monitoring and further management Coding Level of Care Code Acute Apparel Designer for g Fwd Diagnoses Atherosclerotic heart disease of [place] coronary artery with unstable angina pectoris I25.110 Non-ST elevation myocardial infarction (NSTEMI) I21.4 Benign essential hypertension with target blood pressure below 140/90 I10 Dyslipidemia associated with type 2 diabetes mellitus E11.69; E78.5 Chronic kidney disease (CKD) N18.31 Chronic kidney disease stage: stage 3 (moderate) Chronic kidney disease stage 3 subtype: stage 3a (GFR 45-59)
[2020-09-06] MEDS: clopidogrel 75 mg Tablet PO (10:36)
[2020-09-06] MEDS: levothyroxine 150 mcg Tablet 75 MCG PO (10:36)
[2020-09-06] MEDS: atorvastatin 40 mg Tablet PO (10:36)
[2020-09-06 12:22] LABS: Glucose Point of Care 229 mg/dL (70-110)
--- NOTE | 2020-09-06 13:05 | P.TS_ITS ---
Transfer Summary Providers Date of Admission: 09/06/20 03:49 Date of Discharge: 09/07/20 Attending Provider at Admission: Emmanuelle Valdez MD Attending Provider at Transfer: Shyann Roberson MD Consults: Cardiology Primary Care Provider: Roverto Arnold MD Anticipated Date of Transfer: Anticipated date of transfer: 09/07/20 Receiving Facility & Provider: Receiving Provider: [Dr. Ang, Dr. Hernandez] Receiving facility: [[facility]] Diagnoses at Discharge Discharge Diagnosis (1) Atherosclerotic heart disease of [place] coronary artery with unstable angina pectoris: Status: Chronic Permanent problem details: -s/p bypass x 4, stenting x 3 (2) Non-ST elevation myocardial infarction (NSTEMI): Status: Acute Permanent problem details: -with noted delta of 21 after 6 hrs -some non-specific ECG changes -on heparin drip, ASA, plavix, statin, BB, NTG, ranexa -Echo: EF=77%, G1DD, mild LVH, relative hypokinesia of the mid and apical septal segment, trace TR (3) Benign essential hypertension with target blood pressure below 140/90: Status: Chronic Permanent problem details: -amlodipine added for more optimal BP control (4) Dyslipidemia associated with type 2 diabetes mellitus: Status: Chronic Permanent problem details: -continue statin (5) Chronic kidney disease (CKD): Status: Chronic Permanent problem details: -on gentle IVF due to anticipated coronary angiogram -baseline Cr appears to be around 1.2-1.3 Qualifiers: Chronic kidney disease stage: stage 3 (moderate) Chronic kidney disease stage 3 subtype: stage 3a (GFR 45-59) Qualified Code(s): N18.31 - Chronic kidney disease, stage 3a Reason for Visit Reason for Visit: chest pain Hospital Course Hospital Course Patient was admitted to the cardiac stepdown unit and placed on telemetry monitoring. Due to presenting with complaints of chest pain she had her troponins trended with noted delta of 21 after [address] depression noted on her EKG though this does not appear to be an acute change. She has been chest pain-free since admission but due to her elevated troponins as well as her complicated coronary disease history including bypass surgery x4, stent ing x3, cardiology was consulted and recommended coronary angiogram as a next step in her evaluation. In the meantime she has been medically managed including aspirin, Plavix, Ranexa, heparin drip, statin and beta-ronen. Patient typically follows up with cardiology at [facility] in [place] and would like to have any additional work-up and intervention done there. Dr. Gee agrees with this assessment and we are currently working on transferring patient to [facility] under the care of Dr. Hernandez. There was a 24-hr delay in actual transfer once patient was accepted due to bed availability. This has now been resolved and she is going to be transferred this evening. Physical Exam Const: COMMON NORMALS: no acute distress and patient oriented x3 GENERAL APPEARANCE: cooperative and comfortable ORIENTATION/CONSCIOUSNESS: Yes awake HENMT: COMMON NORMALS: normocephalic, atraumatic, hearing grossly normal bilaterally and moist oral mucous membranes HEAD & SCALP: normocephalic and atraumatic Eye: COMMON NORMALS: Equal, round and reactive pupils present, EOMs intact bilaterally and conjunctivae normal CONJUNCTIVA: Yes conjunctivae normal PUPIL: Yes Equal, round and reactive pupils present Neck/C-Spine: COMMON NORMALS: full ROM GENERAL: Yes normal visual in spection and Yes trachea midline Resp: COMMON NORMALS: normal respiratory effort, No retractions, No use of accessory muscles and clear to auscultation bilaterally EFFORT & INSPECTION: Yes able to speak in complete sentences, Yes symmetric chest movement and No tachypneic AUSCULTATION: clear to auscultation bilaterally Cardio: COMMON NORMALS: regular rate, regular rhythm, S1 normal heart sound present, S2 normal heart sound present and No murmurs present (Cardio) RATE: regular rate RHYTHM: regular rhythm HEART SOUNDS: S1 normal heart sound present and S2 normal heart sound present GI: COMMON NORMALS: Normal to inspection, nondistended, normoactive bowel sounds present, Soft to palpation and non-tender INSPECTION: Yes central obesity PALPATION: Yes Soft to palpation Extremity: COMMON NORMALS: normal to inspection, full ROM and no clubbing, cyanosis or edema; negative for no pedal edema Neuro: COMMON NORMALS: patient oriented x3, moves all extremities, no focal motor deficits and no sensory deficits noted Psych: COMMON NORMALS: mental status grossly normal, Normal thought process present, cooperative, normal affect and speech normal SPEECH: Yes normal speech THOUGHT PROCESS: Normal thought process present Skin: COMMON NORMALS: no rashes or lesions noted, no jaundice, no petechiae and no mottling GENERAL SKIN EXAM: no rashes or lesions noted TS Data Data Completed and Pending: Completed Studies During Hospitalization Category Date Time Status XR chest 1V brian ble [id number] Stat Exams 09/06/20 01:30 Completed Pending at discharge Category Date Time Status PTT [Partial Thro mboplastin Time] S tat Lab 09/06/20 12:46 Ordered Platelet Count Q2 D Lab 09/08/20 04:00 Ordered Platelet Count Q2 D Lab 09/10/20 04:00 Ordered Platelet Count Ro utine Lab 09/06/20 12:50 Ordered CV echo complete* [id number] Urgent Ultrasound 09/06/20 09:47 Taken Labs from last 24 hours 09/06/20 09/06/20 09/06/20 12:06 08:28 07:43 WBC RBC Hgb Hct MCV MCH MCHC RDW Plt Count MPV Neut % (Auto) Lymph % (Auto) [place]aves % (Auto) Eos % (Auto) Baso % (Auto) Neut # (Auto) Lymph # (Auto) [place] # (Auto) Eos # (Auto) Baso # (Auto) Nucleated RBC % (a uto) Nucleated RBCs # D-Dimer Sodium Potassium Chloride Carbon Dioxide Anion Gap BUN Creatinine GFR Calculation Glucose POC Glucose 229 277 Calculated Osmolal ity Calcium Total Bilirubin AST ALT Alkaline Phosphata se Troponin T Baselin e Troponin T 120 Min [place] Delta Troponin T Troponin T Hi Sens 6Hr 44.07 H Troponin T Hi Sens 6Hr Delta 21.07 H* NT-Pro-B Natriuret Pep Total Protein Albumin Globulin 09/06/20 09/06/20 09/06/20 03:55 01:49 01:49 WBC RBC Hgb Hct MCV MCH MCHC RDW Plt Count MPV Neut % (Auto) Lymph % (Auto) [place] % (Auto) Eos % (Auto) Baso % (Auto) Neut # (Auto) Lymph # (Auto) [place] # (Auto) Eos # (Auto) Baso # (Auto) Nucleated RBC % (a uto) Nucleated RBCs # D-Dimer 0.42 Sodium Potassium Chloride Carbon Dioxide Anion Gap BUN Creatinine GFR Calculation Glucose POC Glucose Calculated Osmolal ity Calcium Total Bilirubin AST ALT Alkaline Phosphata se Troponin T Baselin e 23 H Troponin T 120 Min [place] 32.80 H Delta Troponin T 9.80 Troponin T Hi Sens 6Hr Troponin T Hi Sens 6Hr Delta NT-Pro-B Natriuret Pep Total Protein Albumin Globulin 09/06/20 09/06/20 01:49 01:49 WBC 8.6 RBC 4.70 Hgb 12.6 Hct 39.4 MCV 83.8 MCH 26.8 L MCHC 32.0 RDW 13.6 Plt Count 219 MPV 11.1 H Neut % (Auto) 88.2 Lymph % (Auto) 8.9 Chaves % (Auto) 2.4 Eos % (Auto) 0.0 Baso % (Auto) 0.0 Neut # (Auto) 7.61 Lymph # (Auto) 0.8 Chaves # (Auto) 0.2 Eos # (Auto) 0.0 Baso # (Auto) 0.0 Nucleated RBC % (a uto) 0 Nucleated RBCs # 0.0 D-Dimer Sodium 138 Potassium 4.1 Chloride 100 Carbon Dioxide 25 Anion Gap 17.1 BUN 18 Creatinine 1.3 H GFR Calculation Not Reportable Glucose 429 H POC Glucose Calculated Osmolal ity 306 H Calcium 10.4 Total Bilirubin 0.3 AST 26 ALT 21 Alkaline Phosphata se 57 Troponin T Baselin e Troponin T 120 Min [place] Delta Troponin T Troponin T Hi Sens 6Hr Troponin T Hi Sens 6Hr Delta NT-Pro-B Natriuret Pep 422 Total Protein 7.1 Albumin 4.5 Globulin 2.6 Vitals: Last Vital Signs Temp 97.0 F L 09/06/20 12:00 Pulse 76 09/06/20 12:00 Resp 17 09/06/20 12:00 BP 161/74 09/06/20 12:00 Pulse Ox 95 09/06/20 12:00 TS Medications Medications Home Medications DILT-CD 120 mg PO DAILY 09/06/20 [History Confirmed 09/06/20] Levemir U-100 Insulin 40 unit SUBCUT BID 09/06/20 [History Confirmed 09/06/20] albuterol 90 mcg INHALATION Q6H PRN 09/06/20 [History Confirmed 09/06/20] aspirin 81 mg PO DAILY 09/06/20 [History Confirmed 09/06/20] clopidogrel 75 mg PO DAILY 09/06/20 [History Confirmed 09/06/20] diltiazem HCl 120 mg PO DAILY 09/06/20 [History Confirmed 09/06/20] empagliflozin [Jardiance] 10 mg PO DAILY 09/06/20 [History Confirmed 09/06/20] fenofibrate nanocrystallized 145 mg PO DAILY 09/06/20 [History Confirmed 09/06/20] furosemide 20 mg PO DAILY 09/06/20 [History Confirmed 09/06/20] furosemide 20 mg PO DAILY 09/06/20 [History Confirmed 09/06/20] insulin lispro [Humalog KwikPen Insulin] See Rx Instructions .ROUTE .COMPLEX 09/06/20 [History Confirmed 09/06/20] isosorbide mononitrate 30 mg PO DAILY 09/06/20 [History Confirmed 09/06/20] isosorbide mononitrate 30 mg PO DAILY 09/06/20 [History Confirmed 09/06/20] levothyroxine 50 mcg PO DAILY 09/06/20 [History Confirmed 09/06/20] metoprolol tartrate 12.5 mg PO BID 09/06/20 [History Confirmed 09/06/20] metoprolol tartrate 12.5 mg PO BID 09/06/20 [History Confirmed 09/06/20] multivitamin 1 tab PO DAILY 09/06/20 [History Confirmed 09/06/20] pantoprazole 40 mg PO DAILY 09/06/20 [History Confirmed 09/06/20] pantoprazole 40 mg PO DAILY 09/06/20 [History Confirmed 09/06/20] potassium chloride 10 meq PO BID 09/06/20 [History Confirmed 09/06/20] ranolazine 500 mg PO BID 09/06/20 [History Confirmed 09/06/20] ranolazine 500 mg PO DAILY 09/06/20 [History Confirmed 09/06/20] ropinirole 2 mg PO DAILY 09/06/20 [History Confirmed 09/06/20] ropinirole [Requip] 2 mg PO DAILY 09/06/20 [History Confirmed 09/06/20] rosuvastatin 10 mg PO DAILY 09/06/20 [History Confirmed 09/06/20] rosuvastatin 10 mg PO DAILY 09/06/20 [History Confirmed 09/06/20] Active Medications Amlodipine Besylate (Amlodipine 5 Mg Tablet) 5 mg PO DAILY [facility] Aspirin (Aspirin 81 Mg Ec Tablet) 81 mg PO DAILY [facility] Last Admin: 09/06/20 08:41 Dose: 81 mg Documented by: Atorvastatin Calcium (Atorvastatin 40 Mg Tablet) 40 mg PO DAILY [facility] Last Admin: 09/06/20 10:36 Dose: 40 mg Documented by: Clopidogrel Bisulfate (Clopidogrel 75 Mg Tablet) 75 mg PO DAILY [facility] Last Admin: 09/06/20 10:36 Dose: 75 mg Documented by: Dextrose (Dextrose 50% Syringe 50 Ml) 25 ml IVP ONCE PRN; Protocol PRN Reason: hypoglycemia protocol Dextrose (Dextrose 50% Syringe 50 Ml) 50 ml IVP PRN PRN; Protocol PRN Reason: hypoglycemia protocol Glucagon (Glucagon 1 Mg/Ml Inj 1 Ml) 1 mg IM ONCE PRN; Protocol PRN Reason: Adult Acute Hypoglycemia Prot. Heparin Sodium (Beef Lung) (Heparin 5,000 Unit/Ml Inj 1 Ml) 5,000 unit SUBCUT Q8H [facility] Last Admin: 09/06/20 08:42 Dose: 5,000 unit Documented by: Heparin Sodium (Beef Lung) (Heparin 5,000 Unit/Ml Inj 1 Ml) 0 unit IV PRN PRN; Protocol PRN Reason: Heparin weight-base protocol Dextrose (D5w) 500 mls @ 100 mls/hr IV ONCE PRN; Protocol PRN Reason: Adult Acute Hypoglycemia Prot Heparin Sodium/Sodium Chloride (Heparin Drip) 25,000 unit in 500 mls @ 0 mls/hr IV .Q0M [facility]; Protocol Insulin Aspart (Insulin Aspart 100 Unit/1 Ml) 0 unit SUBCUT WM&BEDTIME [facility]; Protocol Last Admin: 09/06/20 12:35 Dose: 8 unit Documented by: Isosorbide Mononitrate (Isosorbide Mononitrate Er 60 Mg Tablet) 60 mg PO DAILY [facility] Last Admin: 09/06/20 08:42 Dose: 60 mg Documented by: Levothyroxine Sodium (Levothyroxine 150 Mcg Tablet) 75 mcg PO DAILY [facility] Last Admin: 09/06/20 10:36 Dose: 75 mcg Documented by: Metoprolol Succinate (Metoprolol Succinate Er (24 Hr) 25 Mg Tablet) 25 mg PO DAILY [facility] Last Admin: 09/06/20 08:41 Dose: 25 mg Documented by: Nitroglycerin (Nitroglycerin 0.4 Mg Sublingual Tablet) 0.4 mg SUBLINGUAL Q5M PRN PRN Reason: CHEST PAIN Ranolazine (Ranolazine (12hr) 500 Mg Tablet) 1,000 mg PO BID [facility] Last Admin: 09/06/20 08:42 Dose: 1,000 mg Documented by: Discharge Plan Discharge Patient Disposition: Xfer Short-Term Hosp Condition: Stable Prescriptions: No Action Jardiance 10 mg Tablet 10 mg PO DAILY RF: 0 Levemir U-100 Insulin 40 unit SUBCUT BID RF: 0 Requip 2 mg Tablet 2 mg PO DAILY RF: 0 pantoprazole 40 mg Tablet,Delayed Release (Dr/Ec) 40 mg PO DAILY RF: 0 furosemide 20 mg Tablet 20 mg PO DAILY RF: 0 albuterol 90 mcg/actuation Aerosol 90 mcg INHALATION Q6H PRN (Reason: Shortness Of Breath) RF: 0 rosuvastatin 10 mg Tablet 10 mg PO DAILY RF: 0 metoprolol tartrate 25 mg Tablet 12.5 mg PO BID RF: 0 ranolazine 500 mg Tablet Extended Release 12 Hr 500 mg PO DAILY RF: 0 DILT-CD 120 MG 120 mg PO DAILY RF: 0 isosorbide mononitrate 30 MG tablet 30 mg PO DAILY RF: 0 isosorbide mononitrate 30 mg tablet extended release 24 hr 30 mg PO DAILY RF: 0 potassium chloride 10 mEq tablet extended release 10 meq PO BID RF: 0 clopidogrel 75 mg tablet 75 mg PO DAILY RF: 0 levothyroxine 50 mcg tablet 50 mcg PO DAILY RF: 0 ropinirole 2 mg tablet 2 mg PO DAILY RF: 0 pantoprazole 40 mg tablet,delayed release (DR/EC) 40 mg PO DAILY RF: 0 diltiazem HCl 120 mg capsule,extended release 24hr 120 mg PO DAILY RF: 0 furosemide 20 mg tablet 20 mg PO DAILY RF: 0 Humalog KwikPen Insulin 100 unit/mL insulin pen See Rx Instructions .ROUTE .COMPLEX RF: 0 rosuvastatin 10 mg tablet 10 mg PO DAILY RF: 0 metoprolol tartrate 25 mg tablet 12.5 mg PO BID RF: 0 ranolazine 500 mg tablet extended release 12 hr 500 mg PO BID RF: 0 fenofibrate nanocrystallized 145 mg tablet 145 mg PO DAILY RF: 0 multivitamin Tablet 1 tab PO DAILY RF: 0 aspirin 81 mg Tablet 81 mg PO DAILY RF: 0 Discharge Orders: Transfer Out of Facility (Order); Ordered 09/07/20 Ordered By: Shyann Roberson Referrals: Roverto Arnold MD [Primary Care Provider] - Discharge Diet: Cardiac Transfer Attestations Time Spent in Transfer Care*: greater than 30 min Specific Discharge Activities: Specific discharge activities: educating patient, discussing with pcp/other providers, discussing with watch case polisher/social workers/dc planners, documenting/other paperwork and evaluating patient/reviewing data Status at Transfer: Cognitive status at transfer: cognitively intact , Behavioral status at transfer: cooperative and independent in ADL's , Functional status at transfer: independent ambulation Quality Metrics Clinical Quality Measures: During this hospital stay, did patient experience: None Coding Level of Care Code 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
--- NOTE | 2020-09-06 13:18 | P.PN_ITS ---
Subjective Subjective: Interval history: Chart reviewed, patient resting quietly in bed, currently chest pain-free. Noted troponins with delta of 21 after 6 hours. She is very pleasant, no complaints currently. Discussed case with Dr. Gee and recommendation made to continue medical management including addition of heparin drip and work on transfer to [facility] given complexity of patient's hx. Per my discussion with Karina transfer car operator drier at [facility] ([phone]), patient has been accepted but due to lack of bed availability at this time, it may be tomorrow before bed opens up for actual transfer. I have discussed with case with hospitalist Dr. Ang who has accepted patient as well with Dr. Glass consulting. He agrees with current treatment plan. Medications: Reviewed: Yes Medication Review Details: Active Medications Generic Name Dose Route Start Last Admin Trade Name Freq PRN Reason Stop Dose Admin Amlodipine Besylat e 5 mg 09/06/20 11:50 Amlodipine 5 Mg Tablet PO DAILY JOSEF Aspirin 81 mg 09/06/20 09:00 09/06/20 08:41 Aspirin 81 Mg Ec Tablet PO 81 mg DAILY JOSEF Administration Atorvastatin Calci um 40 mg 09/06/20 09:00 09/06/20 10:36 Atorvastatin 40 Mg Tablet PO 40 mg DAILY JOSEF Administration Clopidogrel Bisulf ate 75 mg 09/06/20 09:00 09/06/20 10:36 Clopidogrel 75 M g Tablet PO 75 mg DAILY JOSEF Administration Dextrose 25 ml 09/06/20 08:23 Dextrose 50% Syr kristin 50 Ml IVP ONCE PRN hypoglycemia prot ocol Protocol Dextrose 50 ml 09/06/20 08:23 Dextrose 50% Syr kristin 50 Ml IVP PRN PRN hypoglycemia prot ocol Protocol Glucagon 1 mg 09/06/20 08:23 Glucagon 1 Mg/Ml Inj 1 Ml IM ONCE PRN Adult Acute Hypog lycemia Prot. Protocol Heparin Sodium (Be ef Lung) 5,000 unit 09/06/20 09:00 09/06/20 08:42 Heparin 5,000 Un it/Ml Inj 1 Ml SUBCUT 5,000 unit Q8H JOSEF Administration Heparin Sodium (Be ef Lung) 0 unit 09/06/20 12:49 Heparin 5,000 Un it/Ml Inj 1 Ml IV PRN PRN Heparin weight-ba se protocol Protocol Dextrose 500 mls @ 100 mls /hr 09/06/20 08:23 D5w IV ONCE PRN Adult Acute Hypog lycemia Prot Protocol Heparin Sodium/Sod ium Chloride 25,000 unit in 50 0 mls @ 0 mls/hr 09/06/20 13:00 Heparin Drip IV .Q0M JOSEF Protocol Per Protocol Sodium Chloride 1,000 mls @ 75 ml s/hr 09/06/20 13:30 Sodium Chloride 0.9% IV .[id number] JOSEF Insulin Aspart 0 unit 09/06/20 08:23 09/06/20 12:35 Insulin Aspart 1 00 Unit/1 Ml SUBCUT 8 unit WM&BEDTIME JOSEF Administration Protocol Isosorbide Mononit rate 60 mg 09/06/20 09:00 09/06/20 08:42 Isosorbide [place] itrate Er 60 Mg Ta blet PO 60 mg DAILY JOSEF Administration Levothyroxine Sodi um 75 mcg 09/06/20 09:00 09/06/20 10:36 Levothyroxine 15 0 Mcg Tablet PO 75 mcg DAILY JOSEF Administration Metoprolol Succina te 25 mg 09/06/20 09:00 09/06/20 08:41 Metoprolol Succi irene Er (24 Hr) 25 Mg Tablet PO 25 mg DAILY JOSEF Administration Nitroglycerin 0.4 mg 09/06/20 08:23 Nitroglycerin 0. 4 Mg Sublingual Ta blet SUBLINGUAL Q5M PRN CHEST PAIN Ranolazine 1,000 mg 09/06/20 09:00 09/06/20 08:42 Ranolazine (12hr ) 500 Mg Tablet PO 1,000 mg BID JOSEF Administration codeine Allergy (Verified 09/02/20 07:33) ADR-Vomiting epinephrine [From Primatene Mist] Allergy (Verified 09/02/20 07:33) ALGY-Difficulty Breathing morphine Allergy (Verified 09/02/20 07:33) ALGY-Redness of Skin Vitals/I&O/Wt Last Vital Signs Temp 97.0 F L 09/06/20 12:00 Pulse 76 09/06/20 12:00 Resp 17 09/06/20 12:00 BP 161/74 09/06/20 12:00 Pulse Ox 95 09/06/20 12:00 Weight last 48 hrs Weight 61.235 kg Physical Exam Const: COMMON NORMALS: no acute distress, patient oriented x3 and alert GENERAL APPEARANCE: cooperative and comfortable ORIENTATION/CONSCIOUSNESS: Yes awake OTHER: -very pleasant, resting quietly in bed HENMT: COMMON NORMALS: normocephalic, atraumatic, hearing grossly normal bilaterally and moist oral mucous membranes HEAD & SCALP: normocephalic and atraumatic Eye: COMMON NORMALS: Equal, round and reactive pupils present, EOMs intact bilaterally and conjunctivae normal CONJUNCTIVA: Yes conjunctivae normal PUPIL: Yes Equal, round and reactive pupils present Neck/C-Spine: COMMON NORMALS: full ROM GENERAL: Yes normal visual inspection and Yes trachea midline Resp: COMMON NORMALS: normal respiratory effort, No retractions, No use of accessory muscles and clear to auscultation bilaterally EFFORT & INSPECTION: Yes able to speak in complete sentences, Yes symmetric chest movement and No tachypneic AUSCULTATION: clear to auscultation bilaterally Cardio: COMMON NORMALS: regular rate, regular rhythm, S1 normal heart sound present, S2 normal heart sound present and No murmurs present (Cardio) RATE: regular rate RHYTHM: regular rhythm HEART SOUNDS: S1 normal heart sound present and S2 normal heart sound present GI: COMMON NORMALS: Normal to inspection, nondistended, normoactive bowel sounds present, Soft to palpation and non-tender INSPECTION: Yes central obes ity PALPATION: Yes Soft to palpation Extremity: COMMON NORMALS: normal to inspection, full ROM and no clubbing, cyanosis or edema; negative for no pedal edema Neuro: COMMON NORMALS: patient oriented x3, moves all extremities, no focal motor deficits and no sensory deficits noted SENSORIUM/ORIENTATION: Yes alert Psych: COMMON NORMALS: mental status grossly normal, Normal thought process present, cooperative, normal affect and speech normal SPEECH: Yes normal speech THOUGHT PROCESS: Normal thought process present Skin: COMMON NORMALS: no rashes or lesions noted, no jaundice, no petechiae and no mottling GENERAL SKIN EXAM: no rashes or lesions noted Data : 09/06/20 01:49 09/06/20 01:49 A&P Assessment and plan (1) Non-ST elevation myocardial infarction (NSTEMI): -with noted delta of 21 after 6 hrs -some non-specific ECG changes -on heparin drip, ASA, plavix, statin, BB, NTG, ranexa -Echo pending -ROBERTO -slightly hypertensive, otherwise stable vital signs; continue to monitor -Cardiology consult by Dr. Gee appreciated Status: Acute (2) Atherosclerotic heart disease of [place] coronary artery with unstable angina pectoris: -s/p bypass x 4, stenting x 3 Status: Chronic Qualifiers: [place] vs. transplanted heart: [place] heart Qualified Code(s): I25.110 - Atherosclerotic heart disease of [place] coronary artery with unstable angina pectoris (3) Chronic kidney disease (CKD): -on gentle IVF due to anticipated coronary angiogram -continue to monitor renal function -baseline Cr appears to be around 1.2-1.3 -avoid nephrotoxins, renally dose meds Status: Chronic Qualifiers: Chronic kidney disease stage: stage 3 (moderate) Chronic kidney disease stage 3 subtype: stage 3a (GFR 45-59) Qualified Code(s): N18.31 - Chronic kidney disease, stage 3a (4) Dyslipidemia associated with type 2 diabetes mellitus: -on statin Status: Chronic (5) Benign essential hypertension with target blood pressure below 140/90: -continue oral antihypertensives; amlodipine added for more optimal BP control Status: Chronic Additional A&P Information -cardiac diet as tolerated -GI ppx with famotidine -DVT ppx not needed as on heparin drip -Dispo: pending [facility] -Code status: FULL code Attestations Medical Necessity Statement*: Patient requires hospitalization for continued management of NSTEMI, currently on medical management pending transfer to higher level of care. Time Spent in Patient Care: Greater than 35 minutes (>than 50% of time spent in counselling and/or direct pt care on unit) . Coding Level of Care Code Acute Dinker for [facility] Diagnoses Non-ST elevation myocardial infarction (NSTEMI) I21.4 Atherosclerotic heart disease of [place] coronary artery with unstable angina pectoris I25.110 [place] vs. transplanted heart: [place] heart Chronic kidney disease (CKD) N18.31 Chronic kidney disease stage: stage 3 (moderate) Chronic kidney disease stage 3 subtype: stage 3a (GFR 45-59) Dyslipidemia associated with type 2 diabetes mellitus E11.69; E78.5 Benign essential hypertension with target blood pressure below 140/90 I10
[2020-09-06] MEDS: amlodipine 5 mg Tablet PO (13:53)
[2020-09-06] MEDS: heparin drip 25,000 UNIT/500 ML PREMIX 17 UNIT IV (14:34)
[2020-09-06] MEDS: sodium chloride 0.9% 1,000 ML 75 ML IV (14:34)
[2020-09-06 15:05] LABS: Partial Thromboplastin Time 21.1 SECONDS (23.9-36.7)
[2020-09-06 16:35] LABS: Glucose Point of Care 152 mg/dL (70-110)
[2020-09-06] MEDS: famotidine 20 mg Tablet PO (17:52)
[2020-09-06 19:21] LABS: Partial Thromboplastin Time 54.7 SECONDS (23.9-36.7)
[2020-09-06] MEDS: heparin 5,000 unit/mL INJ 1 mL IV (19:46)
[2020-09-06 20:40] LABS: Glucose Point of Care 242 mg/dL (70-110)
[2020-09-07] VITALS (8 sets, daily range): BP systolic 100–150; BP diastolic 55–80; PULSE 63–74; RESP 17–22; TEMP 36.5–36.9; O2SAT 90–96
[2020-09-07 02:27] LABS: Blood Urea Nitrogen 25 mg/dL (8-23); Calcium 9.3 mg/dL (8.5-10.5); Carbon Dioxide 27 mmol/L (22-29); Chloride 108 mmol/L (98-107); Glucose 127 mg/dL (65-115); Osmolality Calculated 304 mOsm/kg (285-295); Sodium 144 mmol/L (136-145)
[2020-09-07 02:28] LABS: Partial Thromboplastin Time 123.5 SECONDS (23.9-36.7)
[2020-09-07] MEDS: sodium chloride 0.9% 1,000 ML 75 ML IV (03:03)
[2020-09-07 06:35] LABS: Glucose Point of Care 116 mg/dL (70-110)
--- NOTE | 2020-09-07 08:37 | P.PN_ITS ---
Subjective Subjective: Interval history: Noted hypertension overnight, will increase dose of amlodipine. Improvement in renal function so we will decrease IV fluid hydration. Otherwise hemodynamically stable and afebrile. Remains on heparin drip. Awaiting bed availability at [facility]. Resting quietly in bed, remains chest pain free. Medications: Reviewed: Yes Medication Review Details: Active Medications Generic Name Dose Route Start Last Admin Trade Name Freq PRN Reason Stop Dose Admin Amlodipine Besylat e 10 mg 09/07/20 09:00 Amlodipine 5 Mg Tablet PO DAILY JOSEF Aspirin 81 mg 09/06/20 09:00 09/06/20 08:41 Aspirin 81 Mg Ec Tablet PO 81 mg DAILY JOSEF Administration Atorvastatin Calci um 40 mg 09/06/20 09:00 09/06/20 10:36 Atorvastatin 40 Mg Tablet PO 40 mg DAILY JOSEF Administration Clopidogrel Bisulf ate 75 mg 09/06/20 09:00 09/06/20 10:36 Clopidogrel 75 M g Tablet PO 75 mg DAILY JOSEF Administration Dextrose 25 ml 09/06/20 08:23 Dextrose 50% Syr kristin 50 Ml IVP ONCE PRN hypoglycemia prot ocol Protocol Dextrose 50 ml 09/06/20 08:23 Dextrose 50% Syr kristin 50 Ml IVP PRN PRN hypoglycemia prot ocol Protocol Famotidine 20 mg 09/06/20 18:00 09/06/20 17:52 Famotidine 20 Mg Tablet PO 20 mg BID JOSEF Administration Glucagon 1 mg 09/06/20 08:23 Glucagon 1 Mg/Ml Inj 1 Ml IM ONCE PRN Adult Acute Hypog lycemia Prot. Protocol Heparin Sodium (Be ef Lung) 5,000 unit 09/06/20 09:00 09/06/20 08:42 Heparin 5,000 Un it/Ml Inj 1 Ml SUBCUT 5,000 unit Q8H JOSEF Administration Heparin Sodium (Be ef Lung) 0 unit 09/06/20 12:49 09/06/20 19:46 Heparin 5,000 Un it/Ml Inj 1 Ml IV 1,200 unit PRN PRN Administration Heparin weight-ba se protocol Protocol Dextrose 500 mls @ 100 mls /hr 09/06/20 08:23 D5w IV ONCE PRN Adult Acute Hypog lycemia Prot Protocol Heparin Sodium/Sod ium Chloride 25,000 unit in 50 0 mls @ 0 mls/hr 09/06/20 13:00 09/07/20 02:35 Heparin Drip IV 11.43 unit/kg/hr .Q0M JOSEF 14 mls/hr Titration Protocol Per Protocol Sodium Chloride 1,000 mls @ 50 ml s/hr 09/06/20 13:30 09/07/20 03:03 Sodium Chloride 0.9% IV 75 mls/hr .Q20H JOSEF Administration Insulin Aspart 0 unit 09/06/20 08:23 09/07/20 08:02 Insulin Aspart 1 00 Unit/1 Ml SUBCUT Not Given WM&BEDTIME JOSEF Protocol Isosorbide Mononit rate 60 mg 09/06/20 09:00 09/06/20 08:42 Isosorbide [place] itrate Er 60 Mg Ta blet PO 60 mg DAILY JOSEF Administration Levothyroxine Sodi um 75 mcg 09/06/20 09:00 09/06/20 10:36 Levothyroxine 15 0 Mcg Tablet PO 75 mcg DAILY JOSEF Administration Metoprolol Succina te 25 mg 09/06/20 09:00 09/06/20 08:41 Metoprolol Succi irene Er (24 Hr) 25 Mg Tablet PO 25 mg DAILY JOSEF Administration Nitroglycerin 0.4 mg 09/06/20 08:23 Nitroglycerin 0. 4 Mg Sublingual Ta blet SUBLINGUAL Q5M PRN CHEST PAIN Ranolazine 1,000 mg 09/06/20 09:00 09/06/20 17:47 Ranolazine (12hr ) 500 Mg Tablet PO 1,000 mg BID JOSEF Administration codeine Allergy (Verified 09/02/20 07:33) ADR-Vomiting epinephrine [From Primatene Mist] Allergy (Verified 09/02/20 07:33) ALGY-Difficulty Breathing morphine Allergy (Verified 09/02/20 07:33) ALGY-Redness of Skin Vitals/I&O/Wt Last Vital Signs Temp 97.7 F 09/07/20 04:00 Pulse 65 09/07/20 04:00 Resp 18 09/07/20 04:00 BP 150/80 09/07/20 04:00 Pulse Ox 96 09/07/20 04:00 09/06/20 09/07/20 09/07/20 22:59 06:59 14:59 Intake Total 813.683 / 1451.246 2090.65 / 2112.333 Balance 813.683 / 6764.816 0956.65 / 2112.333 Weight last 48 hrs Weight 61.235 kg Physical Exam Const: COMMON NORMALS: no acute distress, patient oriented x3 and alert GENERAL APPEARANCE: cooperative and comfortable ORIENTATION/CONSCIOUSNESS: Yes awake OTHER: -very pleasant, resting quietly in bed HENMT: COMMON NORMALS: normocephalic, atraumatic, hearing grossly normal bilaterally and moist oral mucous membranes HEAD & SCALP: normocephalic and atraumatic Eye: COMMON NORMALS: Equal, round and reactive pupils present, EOMs intact bilaterally and conjunctivae normal CONJUNCTIVA: Yes conjunctivae normal PUPIL: Yes Equal, round and reactive pupils present Neck/C-Spine: COMMON NORMALS: full ROM GENERAL: Yes normal visual inspection and Yes trachea midline Resp: COMMON NORMALS: normal respiratory effort, No retractions, No use of accessory muscles and clear to auscultation bilaterally EFFORT & INSPECTION: Yes able to speak in complete sentences, Yes symmetric chest movement and No ta chypneic AUSCULTATION: clear to auscultation bilaterally Cardio: COMMON NORMALS: regular rate, regular rhythm, S1 normal heart sound present, S2 normal heart sound present and No murmurs present (Cardio) RATE: regular rate RHYTHM: regular rhythm HEART SOUNDS: S1 normal heart sound present and S2 normal heart sound present GI: COMMON NORMALS: Normal to inspection, nondistended, normoactive bowel sounds present, Soft to palpation and non-tender INSPECTION: Yes central obesity PALPATION: Yes Soft to palpation Extremity: COMMON NORMALS: normal to inspection, full ROM and no clubbing, cyanosis or edema; negative for no pedal edema Neuro: COMMON NORMALS: patient oriented x3, moves all extremities, no focal motor deficits and no sensory deficits noted SENSORIUM/ORIENTATION: Yes alert Psych: COMMON NORMALS: mental status grossly normal, Normal thought process present, cooperative, normal affect and speech normal SPEECH: Yes normal speech THOUGHT PROCESS: Normal thought process present Skin: COMMON NORMALS: no rashes or lesions noted, no jaundice, no petechiae and no mottling GENERAL SKIN EXAM: no rashes or lesions noted Data : 09/06/20 01:49 09/07/20 01:56 A&P Assessment and plan (1) Non-ST elevation myocardial infarction (NSTEMI): -with noted delta of 21 after 6 hrs -some non-specific ECG changes -on heparin drip, ASA, plavix, statin, BB, NTG, ranexa -Echo: EF=77%, G1DD, mild LVH, relative hypokinesia of the mid and apical septal segment, trace TR -ROBERTO -slightly hypertensive, otherwise stable vital signs; continue to monitor -Cardiology consult by Dr. Gerard ventura Status: Acute (2) Atherosclerotic heart disease of [place] coronary artery with unstable angina pectoris: -s/p bypass x 4, stenting x 3 Status: Chronic Qualifiers: [place] vs. transplanted heart: [place] heart Qualified Code(s): I25.110 - Atherosclerotic heart disease of [place] coronary artery with unstable angina pectoris (3) Chronic kidney disease (CKD): -on gentle IVF due to anticipated coronary angiogram -continue to monitor renal function -baseline Cr appears to be around 1.2-1.3 -avoid nephrotoxins, renally dose meds Status: Chronic Qualifiers: Chronic kidney disease stage: stage 3 (moderate) Chronic kidney disease stage 3 subtype: stage 3a (GFR 45-59) Qualified Code(s): N18.31 - Chronic kidney disease, stage 3a (4) Dyslipidemia associated with type 2 diabetes mellitus: -on statin Status: Chronic (5) Benign essential hypertension with target blood pressure below 140/90: -continue oral antihypertensives; amlodipine added for more optimal BP control Status: Chronic Additional A&P Information -cardiac diet as tolerated -GI ppx with famotidine -DVT ppx not needed as on heparin drip -Dispo: pending transfer to [facility] -Code status: FULL code Attestations Medical Necessity Statement*: Patient requires hospitalization for continued management of NSTEMI pending transfer to [facility]. Time Spent in Patient Care: 16 - 35 minutes (>than 50% of time spent in counselling and/or direct pt care on unit) . Coding Level of Care Code Acute Carpentry Teacher for Bev Fwd Exam Comprehensive Diagnoses Non-ST elevation myocardial infarction (NSTEMI) I21.4 Atherosclerotic heart disease of [place] coronary artery with unstable angina pectoris I25.110 [place] vs. transplanted heart: [place] heart Chronic kidney disease (CKD) N18.31 Chronic kidney disease stage: stage 3 (moderate) Chronic kidney disease stage 3 subtype: stage 3a (GFR 45-59) Dyslipidemia associated with type 2 diabetes mellitus E11.69; E78.5 Benign essential hypertension with target blood pressure below 140/90 I10
[2020-09-07] MEDS: aspirin 81 mg EC Tablet PO (08:44)
[2020-09-07] MEDS: isosorbide mononitrate ER 60 mg Tablet PO (08:44)
[2020-09-07] MEDS: famotidine 20 mg Tablet PO ×2 (08:44→18:20)
[2020-09-07] MEDS: ranolazine (12HR) 500 mg Tablet 1000 MG PO ×2 (08:44→18:21)
[2020-09-07] MEDS: metoprolol succinate ER (24 HR) 25 mg Tablet PO (08:45)
[2020-09-07] MEDS: levothyroxine 150 mcg Tablet 75 MCG PO (08:45)
[2020-09-07] MEDS: clopidogrel 75 mg Tablet PO (08:45)
[2020-09-07] MEDS: atorvastatin 40 mg Tablet PO (08:45)
[2020-09-07] MEDS: amlodipine 10 mg Tablet PO (08:53)
[2020-09-07 09:15] LABS: Partial Thromboplastin Time 77.7 SECONDS (23.9-36.7)
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
[2020-09-07 11:38] LABS: Glucose Point of Care 204 mg/dL (70-110)
--- NOTE | 2020-09-07 14:42 | PC.NURSE ---
patient lying in bed resting with eyes closed, will continue to monitor.
[2020-09-07 16:04] LABS: Partial Thromboplastin Time 60.6 SECONDS (23.9-36.7)
--- NOTE | 2020-09-07 16:43 | PC.NURSE ---
Nurse reviewed ptt results. PTT is 60. No change in heparin therapy per protocol. Nurse verified current rate is 13 ml/hr. Placed an order for a timed ptt for 2129
[2020-09-07 18:29] LABS: Glucose Point of Care 246 mg/dL (70-110)
--- NOTE | 2020-09-07 19:46 | PC.NURSE ---
Hand off report called to fallon Chavez RN
[2020-09-07] MEDS: sodium chloride 0.9% 1,000 ML 50 ML IV (20:22)
--- NOTE | 2020-09-07 20:45 | PC.NURSE ---
Patient picked up by Mahin collier to be transported to [facility]. All of patient belongings in hand and vitals stable. Patient packet given to EMS.
== END 2020-09-07 20:41 | disposition short-term general hospital (02) ==
LOC: ER 05:41 → CSU 06:58
PROVIDERS: Internal Medicine Cardiovascular Disease; Nurse Practitioner Family; Admitting Provider Internal Medicine; Emergency Provider Emergency Medicine; PCP Family Medicine; Visit Provider Family Medicine
DX: I21.4 Non-ST elevation (NSTEMI) myocardial infarction (principal); I25.110 Atherosclerotic heart disease of native coronary artery with unstable angina pectoris; E11.22 Type 2 diabetes mellitus with diabetic chronic kidney disease; I12.9 Hypertensive chronic kidney disease with stage 1 through stage 4 chronic kidney disease, or unspecified chronic kidney disease; N18.31 Chronic kidney disease, stage 3a; E11.42 Type 2 diabetes mellitus with diabetic polyneuropathy; I25.2 Old myocardial infarction; E78.5 Hyperlipidemia, unspecified; K21.9 Gastro-esophageal reflux disease without esophagitis; J44.9 Chronic obstructive pulmonary disease, unspecified; Z79.4 Long term (current) use of insulin; Z79.51 Long term (current) use of inhaled steroids; Z79.82 Long term (current) use of aspirin; Z95.1 Presence of aortocoronary bypass graft; Z87.891 Personal history of nicotine dependence; Z86.73 Personal history of transient ischemic attack (TIA), and cerebral infarction without residual deficits
CPT/HCPCS: 12345; 36415; 36416; 71045; 80048; 80053; 82962; 83880; 84484; 85025; 85378; 85730; 93005; 93306; 96372; 99283; 99285; G0378; J1644; J1815; J7030

== ENCOUNTER 2021-06-02 11:12 | Emergency (ER) | payer MEDICARE, MEDICAID, SELFPAY ==
[2021-06-02 12:10] VITALS: BP 122/69; PULSE 67; RESP 18; TEMP 36.9; O2SAT 93
--- NOTE | 2021-06-02 13:27 | ED_ITS ---
HPI - Female Genitourinary General: Chief complaint: Urogenital-Female Stated complaint: PAIN WHEN URINATING/ORANGE URINE Time Seen by Provider: 06/02/21 13:27 Source: patient Mode of arrival: ambulatory Limitations: no limitations History of Present Illness: HPI Narrative: Patient is a 75-year-old female who presents to ED today along with her daughter for complaints of dysuria, trouble urinating and dark-colored urine. Patient tells me symptoms began this morning. She is complaining of some mild suprapubic discomfort. No fevers or chills. She does not complain of nausea or vomiting. Bowel movements have been normal. She denies flank pain. MD elicited complaint: dysuria Onset (ago): hour(s) Severity: moderate Female Urogenital Radiation: Suprapubic Quality of pain: sharp Consistency: intermittent Vaginal discharge: none Vaginal bleeding: none Urinary symptoms: Difficulty Urinating and Dysuria Exacerbating factors: urination Relieving factors: none Associated symptoms: Reports no associated symptoms and abdominal pain (suprapubic); Deny headache(s) or nausea Treatment prior to arrival: none Patient : No Review of Systems Const: Denies: fever(s), chills, body aches, fatigue or malaise Card: Denies: chest pain Resp: Denies: dyspnea GI: Reports: abdominal pain (suprapubic); Denies: nausea, vomiting or diarrhea : Reports: dysuria, urinary hesitancy and dribbling; Denies: flank pain or urinary frequency Musc: Denies: neck pain, back pain, extremity pain or joint pain Skin/Breast: Denies: rash Neuro: Denies: headache(s) [facility] ED PFSH: Medical History (Updated 06/02/21 @ 15:31 by VANI Capellan) Atherosclerotic heart disease of [place] coronary artery with unstable angina pectoris -s/p bypass x 4, stenting x 3 Benign essential hypertension with target blood pressure below 140/90 -amlodipine added for more optimal BP control Cholecystitis Chronic kidney disease (CKD) -on gentle IVF due to anticipated coronary angiogram -baseline Cr appears to be around 1.2-1.3 Coronary artery disease Diabetes Dyslipidemia associated with type 2 diabetes mellitus -continue statin GERD (gastroesophageal reflux disease) Hypothyroidism Kidney disease, chronic, stage II (GFR 60-89 ml/min) Peripheral neuropathy [place] spotted fever Sleep apnea Surgical History History of right-sided carotid endarterectomy Hx of cholecystectomy S/P CABG (coronary artery bypass graft) Patient reports 3 times Family History Other Family history non-contributory Social History Smoking and tobacco status: former smoker Alcohol intake: never Household members: family Housing: House Physical Exam Const: COMMON NORMALS: no acute distress, average body habitus, patient oriented x3, no limitations, healthy appearing, alert and well nourished GENERAL APPEARANCE: cooperative ORIENTATION/CONSCIOUSNESS: Yes awake, Yes oriented to person, Yes oriented to place and Yes oriented to time HENMT: COMMON NORMALS: normocephalic and atraumatic HEAD & SCALP: normocephalic and atraumatic Resp: COMMON NORMALS: normal respiratory effort and clear to auscultation bilaterally AUSCULTATION: clear to auscultation bilaterally Cardio: COMMON NORMALS: regular rate and regular rhythm RATE: regular rate RHYTHM: regular rhythm GI: COMMON NORMALS: Normal to inspection, nondistended, normoactive bowel sounds present, Soft to palpation, No hepatosplenomegaly present and no masses PALPATION: Yes Soft to palpation, Yes Tenderness to palpation present (GI) (suprapubic; non-surgical abdomen) and Yes No hepatosplenomegaly present : COMMON NORMALS: Yes no CVA tenderness BLADDER/KIDNEY EXAM: Yes no CVA tenderness Back/Pelvis: COMMON NORMALS: no CVA tenderness Extremity: COMMON NORMALS: normal to inspection Neuro: COMMON NORMALS: patient oriented x3 SENSORIUM/ORIENTATION: Yes alert, Yes oriented to person, Yes oriented to place and Yes oriented to time Skin: COMMON NORMALS: no rashes or lesions noted GENERAL SKIN EXAM: no rashes or lesions noted Course Vital Signs: Vital signs: Vital Signs Temperature 98.4 F 06/02/21 12:10 Pulse Rate 67 06/02/21 12:10 Respiratory Rate 18 06/02/21 12:10 Blood Pressure 122/69 06/02/21 12:10 Pulse Oximetry 93 06/02/21 12:10 MDM - Female MDM Narrative: Medical decision making narrative: Patient clinically is non- ill nontoxic appearing. Her vital signs are perfect. She has no white count. Remainder of labs are non-concerning. She does have an overwhelming UTI. P atient will be placed on Cipro. They were requesting Pyridium. Recommend follow-up with PCP in a few days for reevaluation. Strict return to ED precautions given. Lab Data: Labs: Lab Results 06/02/21 06/02/21 06/02/21 Range/Units 14:03 14:03 14:14 WBC 9.7 (4.0-10.0) 10^3/ uL RBC 5.89 H (4.1-5.3) 10^6/u L Hgb 13.1 (11.5-15.3) g/dL Hct 43.9 (37.0-47.0) % MCV 74.5 L (81-99) fL MCH 22.2 L (28.0-34.0) pg MCHC 29.8 L (30.0-36.0) g/dL RDW 18.5 H (12.1-15.1) % Plt Count 315 (130-400) 10^3/c mm MPV 10.9 H (7.4-10.4) fL Neut % (Auto) 74.2 % Lymph % (Auto) 13.5 % [place] % (Auto) 8.9 % Eos % (Auto) 2.7 % Baso % (Auto) 0.4 % Neut # (Auto) 7.20 (1.8-7.7) 10^3/u L Lymph # (Auto) 1.3 (0.8-4.8) 10^3/u L [place] # (Auto) 0.9 (0.2-0.9) 10^3/u L Eos # (Auto) 0.3 (0.0-0.8) 10^3/u L Baso # (Auto) 0.0 (0.0-0.1) 10^3/u L Nucleated RBC % (a uto) 0 % Nucleated RBCs # 0.0 /100WBC Sodium 139 (136-145) mmol/L Potassium 3.7 (3.5-5.1) mmol/L Chloride 101 (98-107) mmol/L Carbon Dioxide 28 (22-29) mmol/L Anion Gap 13.7 (5-19) BUN 18 (8-23) mg/dL Creatinine 1.2 H (0.5-0.9) mg/dL GFR Calculation Not Reportable Glucose 108 (65-115) mg/dL Calculated Osmolal ity 290 (285-295) mOsm/k g Calcium 10.0 (8.5-10.5) mg/dL Total Bilirubin 0.5 (0.15-1.2) mg/dL AST 22 (0-32) U/L ALT 10 (0-33) U/L Alkaline Phosphata se 61 (35-105) IU/L Total Protein 7.0 (6.6-8.7) g/dL Albumin 4.2 (3.5-5.2) g/dL Globulin 2.8 (1.3-4.6) g/dL Urine Color Dark yellow (Yellow) Urine Appearance Hazy A (CLEAR) Urine pH 5 (5-7) Ur Specific Gravit y 1.025 (1.005-1.030) Urine Protein 1+ H (Negative) Urine Glucose (UA) Norm (Normal) Urine Ketones Negative (Negative) Urine Blood 3+ H (Negative) Urine Nitrate Negative (Negative) Urine Bilirubin 1+ H (Negative) Urine Urobilinogen Norm (Negative) mg/dL Ur Leukocyte Tonya ase 2+ H (Negative) Urine RBC 15-25 H (0-2) /hpf Urine WBC Too numerous to c nt H (0-5) /hpf Ur Squamous Epith Cells 0-4 H (0-5) /hpf Amorphous Sediment Not Reportable Urine Bacteria 1+ H (NONE) /hpf Discharge Plan Discharge Patient Disposition: Home Clinical Impression: Urinary tract infection Qualifiers: Urinary tract infection type: acute cystitis Hematuria presence: with hematuria Qualified Code(s): N30.01 - Acute cystitis with hematuria Condition: Stable Prescriptions: New Cipro 500 mg tablet 500 mg PO Q12H Qty: 14 RF: 0 Pyridium 100 mg tablet 100 mg PO Q8H Qty: 6 RF: 0 No Action Jardiance 10 mg Tablet 10 mg PO DAILY RF: 0 Levemir U-100 Insulin 40 unit SUBCUT BID RF: 0 Requip 2 mg Tablet 2 mg PO DAILY RF: 0 pantoprazole 40 mg Tablet,Delayed Release (Dr/Ec) 40 mg PO DAILY RF: 0 furosemide 20 mg Tablet 20 mg PO DAILY RF: 0 albuterol 90 mcg/actuation Aerosol 90 mcg INHALATION Q6H PRN (Reason: Shortness Of Breath) RF: 0 rosuvastatin 10 mg Tablet 10 mg PO DAILY RF: 0 metoprolol tartrate 25 mg Tablet 12.5 mg PO BID RF: 0 ranolazine 500 mg Tablet Extended Release 12 Hr 500 mg PO DAILY RF: 0 DILT-CD 120 MG 120 mg PO DAILY RF: 0 isosorbide mononitrate 30 MG tablet 30 mg PO DAILY RF: 0 isosorbide mononitrate 30 mg tablet extended release 24 hr 30 mg PO DAILY RF: 0 potassium chloride 10 mEq tablet extended release 10 meq PO BID RF: 0 clopidogrel 75 mg tablet 75 mg PO DAILY RF: 0 levothyroxine 50 mcg tablet 50 mcg PO DAILY RF: 0 ropinirole 2 mg tablet 2 mg PO DAILY RF: 0 pantoprazole 40 mg tablet,delayed release (DR/EC) 40 mg PO DAILY RF: 0 diltiazem HCl 120 mg capsule,extended release 24hr 120 mg PO DAILY RF: 0 furosemide 20 mg tablet 20 mg PO DAILY RF: 0 Humalog KwikPen Insulin 100 unit/mL insulin pen See Rx Instructions .ROUTE .COMPLEX RF: 0 rosuvastatin 10 mg tablet 10 mg PO DAILY RF: 0 metoprolol tartrate 25 mg tablet 12.5 mg PO BID RF: 0 ranolazine 500 mg tablet extended release 12 hr 500 mg PO BID RF: 0 fenofibrate nanocrystallized 145 mg tablet 145 mg PO DAILY RF: 0 multivitamin Tablet 1 tab PO DAILY RF: 0 aspirin 81 mg Tablet 81 mg PO DAILY RF: 0 Discharge Orders: Discharge ED (Routine); Ordered 06/02/21 Ordered By: Dorothy Barrett Referrals: Roverto Arnold MD [Primary Care Provider] - Patient Instructions: Urinary Tract Infection in Women (ED) Activity Restrictions/Additional Instructions: You need to fill antibiotics and start them immediately. Return to the [facility] department for severe flank pain, fevers, repetitive episodes of vomiting, or inability to hold down your antibiotics. Be aware that the Pyridium may turn your urine orange/red. You need to follow-up with primary care in 3 to 5 days so they can reevaluate you and make sure infection is clearing. Coding Level of Care Code ED Assisted Living Home Director for Chg Fwd Exam Comprehensive
[2021-06-02 14:25] LABS: Basophils % 0.4 %; Eosinophils # 0.3 10^3/uL (0.0-0.8); Eosinophils % 2.7 %; Hematocrit 43.9 % (37.0-47.0); Hemoglobin 13.1 g/dL (11.5-15.3); Lymphocytes # 1.3 10^3/uL (0.8-4.8); Lymphocytes % 13.5 %; Mean Corpuscular HGB Conc 29.8 g/dL (30.0-36.0); Mean Corpuscular Hemoglobin 22.2 pg (28.0-34.0); Mean Corpuscular Volume 74.5 fL (81-99); Mean Platelet Volume 10.9 fL (7.4-10.4); Monocytes # 0.9 10^3/uL (0.2-0.9); Monocytes % 8.9 %; Neutrophils % 74.2 %; Nucleated Red Blood Cells % 0 %; Platelet Count 315 10^3/cmm (130-400); Red Blood Count 5.89 10^6/uL (4.1-5.3); Red Cell Distribution Width 18.5 % (12.1-15.1); White Blood Count 9.7 10^3/uL (4.0-10.0)
[2021-06-02 14:49] LABS: Alanine Aminotransferase 10 U/L (0-33); Albumin Level 4.2 g/dL (3.5-5.2); Alkaline Phosphatase 61 IU/L (35-105); Anion Gap 13.7 (5-19); Aspartate Amino Transferase 22 U/L (0-32); Blood Urea Nitrogen 18 mg/dL (8-23); Carbon Dioxide 28 mmol/L (22-29); Chloride 101 mmol/L (98-107); Globulin 2.8 g/dL (1.3-4.6); Glucose 108 mg/dL (65-115); Osmolality Calculated 290 mOsm/kg (285-295); Potassium 3.7 mmol/L (3.5-5.1); Sodium 139 mmol/L (136-145); Total Bilirubin 0.5 mg/dL (0.15-1.2)
[2021-06-02 15:15] LABS: Add Urine Microscopic? YES; Bilirubin Urine 1+ (Negative); Blood Urine 3+ (Negative); Glucose Urine UA Norm (Normal); Ketones Urine Negative (Negative); Leukocyte Esterase Urine 2+ (Negative); Nitrate Urine Negative (Negative); Protein Urine 1+ (Negative); Specific Gravity, Urine 1.025 (1.005-1.030); Urine Appearance Hazy (CLEAR); Urine Color Dark Yellow (Yellow); Urobilinogen Urine Norm (Negative); pH Urine 5 (5-7)
[2021-06-02 15:16] LABS: Add Urine Culture? Yes; Bacteria Urine 1+ /hpf; RBC Urine 15-25 /hpf (0-2); Squamous Epithelial Cell Urine 0-4 /hpf (0-5); WBC Urine TOO NUMEROUS TO CNT /hpf (0-5)
[2021-06-02] MEDS: cefTRIAXone 1,000 MG in lidocaine 1% 2.1 ML 2.1 MG IM (15:38)
== END 2021-06-02 15:47 | disposition home or self-care (01) ==
PROVIDERS: Emergency Provider Physician Assistant; PCP Family Medicine
DX: N30.01 Acute cystitis with hematuria (principal); Z79.02 Long term (current) use of antithrombotics/antiplatelets; Z79.82 Long term (current) use of aspirin; Z79.4 Long term (current) use of insulin; I25.10 Atherosclerotic heart disease of native coronary artery without angina pectoris; I10 Essential (primary) hypertension; E78.5 Hyperlipidemia, unspecified; E11.40 Type 2 diabetes mellitus with diabetic neuropathy, unspecified; Z87.891 Personal history of nicotine dependence
CPT/HCPCS: 80053; 81001; 85025; 87077; 87086; 87186; 96372; 99283; J0696

== ENCOUNTER 2021-08-03 10:57 | Emergency (ER) | payer MEDICARE, MEDICAID, SELFPAY ==
--- NOTE | 2021-08-03 11:06 | XRR_ITS ---
PROCEDURE INFORMATION: Exam: XR Chest Exam date and time: 08/03/2021 11:06 AM Age: 75 years old Clinical indication: Other: CVA; Prior surgery; Surgery type: Heart gb TECHNIQUE: Imaging protocol: XR of the chest. Views: 1 view. Total images: 1 COMPARISON: CR XR chest 1V portable [id number] 09/06/2020 1:38 AM FINDINGS: Lungs: Mild scarring was noted at the left lung base on prior exam but nonspecific opacity has increased in this area consistent with atelectasis and/or pneumonia. Pleural spaces: Unremarkable. No pleural effusion. No pneumothorax. Heart/Mediastinum: Coronary stents noted. Vasculature: Atherosclerosis is evident. Bones/joints: Osseous structures are unchanged from the prior exam. Other findings: Stable postsurgical changes. XR/XR chest 1V portable [id number] IMPRESSION: Mild scarring was noted at the left lung base on prior exam but nonspecific opacity has increased in this area consistent with atelectasis and/or pneumonia. Radiation Dose CTDIVOL = (mGy): DLP = (mGy-cm)
--- NOTE | 2021-08-03 11:06 | CTR_ITS ---
PROCEDURE INFORMATION: Exam: CT Head Without Contrast Exam date and time: 08/03/2021 11:06 AM Age: 75 years old Clinical indication: Visual disturbance and walking, difficulty; Additional info: CVA TECHNIQUE: Imaging protocol: Computed tomography of the head without contrast. Total images: 184 Radiation optimization: All CT scans at this facility use at least one of these dose optimization techniques: automated exposure control; mA and/or kV adjustment per patient size (includes targeted exams where dose is matched to clinical indication); or iterative reconstruction. COMPARISON: CT Head wo IV contrast* [id number] 04/06/2015 11:08 PM RADIATION DOSE METRICS: Total DLP (mGy-cm): 756.39 FINDINGS: Brain: Senescent calcifications in the basal ganglia. There is moderate diffuse cerebral atrophy present. Cerebral ventricles: No ventriculomegaly. Paranasal sinuses: Visualized sinuses are unremarkable. No fluid levels. Mastoid air cells: Visualized mastoid air cells are well aerated. Bones/joints: Unremarkable. No acute fracture. Soft tissues: Unremarkable. CT/CT head wo con* [id number] IMPRESSION: No acute intracranial abnormality. Radiation Dose CTDIVOL = (mGy): DLP = 756.39 (mGy-cm)
--- NOTE | 2021-08-03 11:07 | ECG_ITS ---
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 Measurements Intervals Coleman Rate: 61 P: -3 MT: 165 QRS: -1 QRSD: 90 T: 83 QT: 462 QTc: 465 Interpretive Statements SINUS RHYTHM POSSIBLE RIGHT VENTRICULAR CONDUCTION DELAY [RSR (QR) IN V1/V2] SEPTAL MYOCARDIAL INFARCTION , OF INDETERMINATE AGE [40+ ms Q WAVE IN V1/V2] Compared to ECG 09/06/2020 11:48:11 Myocardial infarct finding now present T-wave abnormality no longer present Electronically Signed On 08-03-2021 23:20:37 CDT by Johnny Trevizo M.D. [id number]
[2021-08-03 11:17] VITALS: RESP 14; BMI 23.3
[2021-08-03 11:24] VITALS: BP 133/58; PULSE 65; O2SAT 97
--- NOTE | 2021-08-03 11:25 | ED_ITS ---
HPI - Neuro Symptoms/Deficit General: Chief Complaint: Neuro Symptoms/Deficit Stated Complaint: NEURO SYMPTOMS: SLURRED SPEECH,DOUBLE VISION Time Seen by Provider: 08/03/21 11:03 Source: patient Mode of arrival: ambulatory Limitations: no limitations History of Present Illness: HPI Narrative: 75-year-old female states that starting at 930 states that all of a sudden weakness along with severe slurred speech and was able to talk at all. She she also had blurry vision. States that her daughter was driving around. And roughly 30 minutes ago on the drive up here her symptoms have completely resolved. States she has some mild generalized weakness but no focal weakness. Her speech is clear and her daughter states that her speech is at her normal now and was severely slurred earlier. States her vision is improved as well. No history of TIA in the past. Associated symptoms: Deny chest pain, headache(s), nausea or vomiting Review of Systems Const: Denies: fever(s), chills, body aches or change in appetite Eyes: Denies: blurry vision or eye discomfort ENMT: Denies: throat pain or dental pain Card: Denies: chest pain Resp: Denies: dyspnea GI: Denies: abdominal pain, nausea, vomiting or diarrhea : Denies: dysuria Musc: Denies: neck pain or back pain Skin/Breast: Denies: rash Neuro: Reports: weakness in extremities and Slurred speech present; Denies: headache(s) Psych: Denies: depression Mohit/Lymph: Denies: easy bruising All/Imm: Denies: urticaria PFSH ED PFSH: Medical History 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 -s/p bypass x 4, stenting x 3 Benign essential hypertension with target blood pressure below 140/90 -amlodipine added for more optimal BP control Cholecystitis Chronic kidney disease (CKD) -on gentle IVF due to anticipated coronary angiogram -baseline Cr appears to be around 1.2-1.3 Coronary artery disease Diabetes Dyslipidemia associated with type 2 diabetes mellitus -continue statin GERD (gastroesophageal reflux disease) Hypothyroidism Kidney disease, chronic, stage II (GFR 60-89 ml/min) Peripheral neuropathy [place] spotted fever Sleep apnea Surgical History History of right-sided carotid endarterectomy Hx of cholecystectomy S/P CABG (coronary artery bypass graft) Patient reports 3 times Family History Other Family history non-contributory Social History Smoking and tobacco status: former smoker Alcohol intake: never Household members: family Housing: House NIH stroke score NIHSS: Level Of Consciousness - 1a: 0 Level Of Consciousness Questions - 1b: Both Correct Level Of Consciousness Commands - 1c: Both Correct Best Gaze - 2: Normal Visual [place] - 3: No Visual Loss Facial Palsy - 4: Norm al Motor Arm Right - 5: No Drift Motor Arm Left - 5: No Drift Motor Leg Right - 6: No Drift Motor Leg Left - 6: No Drift Limb Ataxia - 7: Absent Sensory - 8: Normal Best Language - 9: No Aphasia Dysarthia - 10: Normal Extinction And Inattention - 11: 0 Score: Total Score: 0 Physical Exam Const: COMMON NORMALS: no acute distress, patient oriented x3 and healthy appearing HENMT: COMMON NORMALS: normocephalic and atraumatic HEAD & SCALP: normocephalic and atraumatic Eye: COMMON NORMALS: Equal, round and reactive pupils present and EOMs intact bilaterally PUPIL: Yes Equal, round and reactive pupils present Neck/C-Spine: COMMON NORMALS: full ROM and supple Chest: COMMONS NORMALS: normal inspection of the chest and normal palpation of entire chest wall Resp: COMMON NORMALS: normal respiratory effort, No retractions, No use of accessory muscles and clear to auscultation bilaterally AUSCULTATION: clear to auscultation bilaterally Cardio: COMMON NORMALS: regular rate, regular rhythm and No murmurs present (Cardio) RATE: regular rate RHYTHM: regular rhythm GI: COMMON NORMALS: Normal to inspection, nondistended, normoactive bowel sounds present, Soft to palpation, non-tender and no masses PALPATION: Yes Soft to palpation Extremity: COMMON NORMALS: normal to inspection and full ROM Neuro: COMMON NORMALS: patient oriented x3, moves all extremities and no focal motor deficits Psych: COMMON NORMALS: mental status grossly normal, Normal thought process present and cooperative THOUGHT PROCESS: Normal thought process present Skin: COMMON NORMALS: no rashes or lesions noted and no wounds GENERAL SKIN EXAM: no rashes or lesions noted Course Vital Signs: Vital signs: Vital Signs Pulse Rate 68 08/03/21 12:11 Respiratory Rate 14 08/03/21 11:17 Blood Pressure 120/57 08/03/21 12:11 Pulse Oximetry 95 08/03/21 12:11 MDM - Neuro Symptoms/Deficit MDM Narrative: Medical decision making narrative: Patient presents here with a TIA. She feels much improved here I did offer her and recommended admission she states that she just wants to go home and does not want stay in the hospital. She is already on a statin, Plavix and aspirin is to continue those. She does have a urinary tract infection as well and will give her Keflex. She is to follow-up with PCP in 2 to 4 days and return if worsening. She understands agrees to plan. Lab Data: Labs: Lab Results 08/03/21 08/03/21 08/03/21 11:25 11:25 11:25 WBC 10.3 10^3/uL H 10 ^3/uL (4.0-10.0) RBC 4.82 10^6/uL 10^6 /uL (4.1-5.3) Hgb 11.9 g/dL g/dL (11.5-15.3) Hct 37.7 % % (37.0-47.0) MCV 78.2 fl L fl (81-99) MCH 24.7 pg L pg (28.0-34.0) MCHC 31.6 g/dL g/dL (30.0-36.0) RDW 19.6 % H % (12.1-15.1) Plt Count 226 10^3/cmm 10^3 /cmm (130-400) MPV 10.7 fL H fL (7.4-10.4) Neut % (Auto) 75.5 % % Lymph % (Auto) 14.0 % % [place] % (Auto) 7.8 % % Eos % (Auto) 2.1 % % Baso % (Auto) 0.3 % % Neut # (Auto) 7.79 10^3/uL H 10 ^3/uL (1.8-7.7) Lymph # (Auto) 1.4 10^3/uL 10^3/ uL (0.8-4.8) [place] # (Auto) 0.8 10^3/uL 10^3/ uL (0.2-0.9) Eos # (Auto) 0.2 10^3/uL 10^3/ uL (0.0-0.8) Baso # (Auto) 0.0 10^3/uL 10^3/ uL (0.0-0.1) Nucleated RBC % (a uto) 0 % % Nucleated RBCs # 0.0 /100WBC /100W BC PT 13.10 SECONDS SEC ONDS (12.1-14.9) INR 0.96 (0.8-1.2) Sodium 137 mmol/L mmol/L (136-145) Potassium 4.5 mmol/L mmol/L (3.5-5.1) Chloride 100 mmol/L mmol/L (98-107) Carbon Dioxide 26 mmol/L mmol/L (22-29) Anion Gap 15.5 (5-19) BUN 14 mg/dL mg/dL (8-23) Creatinine 1.4 mg/dL H mg/dL (0.5-0.9) GFR Calculation Not Reportable Glucose 189 mg/dL H mg/dL (65-115) POC Glucose Calculated Osmolal ity 290 mOsm/kg mOsm/ kg (285-295) Calcium 9.2 mg/dL mg/dL (8.5-10.5) Total Bilirubin 0.7 mg/dL mg/dL (0.15-1.2) AST 27 U/L U/L (0-32) ALT 17 U/L U/L (0-33) Alkaline Phosphata se 59 IU/L IU/L (35-105) Total Protein 7.1 g/dL g/dL (6.6-8.7) Albumin 4.1 g/dL g/dL (3.5-5.2) Globulin 3.0 g/dL g/dL (1.3-4.6) Urine Color Urine Appearance Urine pH Ur Specific Gravit y Urine Protein Urine Glucose (UA) Urine Ketones Urine Blood Urine Nitrate Urine Bilirubin Urine Urobilinogen Ur Leukocyte Tonya ase Urine RBC Urine WBC Ur Squamous Epith Cells Amorphous Sediment Urine Bacteria 08/03/21 08/03/21 11:34 12:39 WBC RBC Hgb Hct MCV MCH MCHC RDW Plt Count MPV Neut % (Auto) Lymph % (Auto) [place] % (Auto) Eos % (Auto) Baso % (Auto) Neut # (Auto) Lymph # (Auto) [place] # (Auto) Eos # (Auto) Baso # (Auto) Nucleated RBC % (a uto) Nucleated RBCs # PT INR Sodium Potassium Chloride Carbon Dioxide Anion Gap BUN Creatinine GFR Calculation Glucose POC Glucose 190 mg/dL H mg/dL (70-110) Calculated Osmolal ity Calcium Total Bilirubin AST ALT Alkaline Phosphata se Total Protein Albumin Globulin Urine Color Dark yellow (Yellow) Urine Appearance Cloudy (CLEAR) Urine pH 6 (5-7) Ur Specific Gravit y 1.015 (1.005-1.030) Urine Protein Neg (Negative) Urine Glucose (UA) Norm (Normal) Urine Ketones Negative (Negative) Urine Blood 3+ H (Negative) Urine Nitrate Negative (Negative) Urine Bilirubin Neg (Negative) Urine Urobilinogen Norm mg/dL mg/dL (Negative) Ur Leukocyte Tonya ase 2+ H (Negative) Urine RBC 10-15 /hpf H /hpf (0-2) Urine WBC Too numerous to c nt /hpf H /hpf (0-5) Ur Squamous Epith Cells 0-4 /hpf H /hpf (0-5) Amorphous Sediment Not Reportable Urine Bacteria 1+ /hpf H /hpf (NONE) Imaging Data^: CXR: Attestation: I personally reviewed and interpreted this imaging study as follows: Radiologist's impression: [address] [address] XRay Report Signed Patient: Yadira Cruz Unit #: [id number] : 1945 Age/Sex: 75 / F ADM Date: 08/03/21 Loc: ER Room/Bed: Attending Dr: Ordering Provider/Ordering MD: Tan Flores MD Date of Service: 08/03/21 Procedure(s): XR chest 1V portable [id number] Accession Number(s): [id number] Report Number: [id number] PROCEDURE INFORMATION: Exam: XR Chest Exam date and time: 08/03/2021 11:06 AM Age: 75 years old Clinical indication: Other: CVA; Prior surgery; Surgery type: Heart gb TECHNIQUE: Imaging protocol: XR of the chest. Views: 1 view. Total images: 1 COMPARISON: CR XR chest 1V portable [id number] 09/06/2020 1:38 AM FINDINGS: Lungs: Mild scarring was noted at the left lung base on prior exam but nonspecific opacity has increased in this area consistent with atelectasis and/or pneumonia. Pleural spaces: Unremarkable. No pleural effusion. No pneumothorax. Heart/Mediastinum: Coronary stents noted. Vasculature: Atherosclerosis is evident. Bones/joints: Osseous structures are unchanged from the prior exam. Other findings: Stable postsurgical changes. XR/XR chest 1V portable [id number] IMPRESSION: Mild scarring was noted at the left lung base on prior exam but nonspecific opacity has increased in this area consistent with atelectasis and/or pneumonia. Radiation Dose CTDIVOL = (mGy): DLP = (mGy-cm) Dictated By: Scar Moffett MD Signed By: Scar Moffett MD Signed Date/Time: 08/03/21 1230 DD/ 1106 CT Head: Attestation: I personally reviewed and interpreted this imaging study as follows: [facility]'s [facility] [address] [place] [address] CT Scan Report Signed Patient: Yadira Cruz Unit #: [id number] : 1945 Age/Sex: 75 / F ADM Date: Loc: ER Room/Bed: Attending Dr: Ordering Provider/Ordering MD: Tan Flores MD Date of Service: 08/03/21 Procedure(s): CT head wo con* [id number] Accession Number(s): [id number] Report Number: [id number] PROCEDURE INFORMATION: Exam: CT Head Without Contrast Exam date and time: 08/03/2021 11:06 AM Age: 75 years old Clinical indication: Visual disturbance and walking, difficulty; Additional info: CVA TECHNIQUE: Imaging protocol: Computed tomography of the head without contrast. Total images: 184 Radiation optimization: All CT scans at this facility use at least one of these dose optimization techniques: automated exposure control; mA and/or kV adjustment per patient size (includes targeted exams where dose is matched to clinical indication); or iterative reconstruction. COMPARISON: CT Head wo IV contrast* [id number] 04/06/2015 11:08 PM RADIATION DOSE METRICS: Total DLP (mGy-cm): 756.39 FINDINGS: Brain: Senescent calcifications in the basal ganglia. There is moderate diffuse cerebral atrophy present. Cerebral ventricles: No ventriculomegaly. Paranasal sinuses: Visualized sinuses are unremarkable. No fluid levels. Mastoid air cells: Visualized mastoid air cells are well aerated. Bones/joints: Unremarkable. No acute fracture. Soft tissues: Unremarkable. CT/CT head wo con* [id number] IMPRESSION: No acute intracranial abnormality. Radiation Dose CTDIVOL = (mGy): DLP = 756.39 (mGy-cm) Dictated By: Scar Moffett MD Signed By: Scar Moffett MD Signed Date/Time: 08/03/21 1228 DD/ 1106 EKG Data^: EKG 1: Attestation: I personally reviewed and interpreted this EKG as follows: EKG interpretation date: 08/03/21 EKG interpretation time: 11:30 Interpretation: nsr hr [address] or t wave abonrmalities qrs 90 qtc 464 Discharge Plan Discharge Patient Disposition: Home Clinical Impression: Acute cystitis, Brain TIA Condition: Stable Prescriptions: New cephalexin 500 mg capsule 500 mg PO TID 7 Days Qty: 21 RF: 0 No Action Levemir Flexpen 100 unit/mL (3 mL) Insulin Pen 40 unit SUBCUT BID RF: 0 pantoprazole 40 mg Tablet,Delayed Release (Dr/Ec) 40 mg PO DAILY RF: 0 furosemide 20 mg Tablet 20 mg PO DAILY PRN (Reason: Edema) RF: 0 albuterol 90 mcg/actuation Aerosol 90 mcg INHALATION Q6H PRN (Reason: Shortness Of Breath) RF: 0 metoprolol tartrate 25 mg Tablet 12.5 mg PO BID RF: 0 isosorbide mononitrate 30 mg tablet extended release 24 hr See Rx Instructions .ROUTE .COMPLEX RF: 0 potassium chloride 10 mEq tablet extended release 10 meq PO DAILY PRN (Reason: with lasix) RF: 0 clopidogrel 75 mg tablet 75 mg PO DAILY RF: 0 levothyroxine 50 mcg tablet 50 mcg PO DAILY RF: 0 ropinirole 2 mg tablet 2 mg PO BEDTIME RF: 0 diltiazem HCl 120 mg capsule,extended release 24hr 120 mg PO DAILY RF: 0 insulin lispro [Humalog KwikPen Insulin] 100 unit/mL insulin pen See Rx Instructions .ROUTE .COMPLEX RF: 0 rosuvastatin 10 mg tablet 10 mg PO DAILY RF: 0 ranolazine 500 mg tablet extended release 12 hr 500 mg PO BID RF: 0 fenofibrate nanocrystallized 145 mg tablet 145 mg PO DAILY RF: 0 multivitamin Tablet 1 tab PO DAILY RF: 0 aspirin 81 mg Tablet 81 mg PO DAILY RF: 0 Discharge Orders: Discharge ED (Routine); Ordered 08/03/21 Ordered By: Tan Flores Referrals: Roverto Arnold MD [Primary Care Provider] - 1-3 days Discharge Diet: Advance as tolerated Discharge Activity: Resume usual activity Patient Instructions: Transient Ischemic Attack (ED), Urinary Tract Infection in Women (DC) Coding Level of Care Code ED Network Operations Specialist for Bev Fwd Exam Comprehensive
[2021-08-03 11:36] LABS: Glucose Point of Care 190 mg/dL (70-110)
[2021-08-03 11:39] LABS: Basophils % 0.3 %; Eosinophils # 0.2 10^3/uL (0.0-0.8); Eosinophils % 2.1 %; Hematocrit 37.7 % (37.0-47.0); Hemoglobin 11.9 g/dL (11.5-15.3); Lymphocytes # 1.4 10^3/uL (0.8-4.8); Mean Corpuscular HGB Conc 31.6 g/dL (30.0-36.0); Mean Corpuscular Hemoglobin 24.7 pg (28.0-34.0); Mean Corpuscular Volume 78.2 fl (81-99); Mean Platelet Volume 10.7 fL (7.4-10.4); Monocytes # 0.8 10^3/uL (0.2-0.9); Monocytes % 7.8 %; Neutrophils # 7.79 10^3/uL (1.8-7.7); Neutrophils % 75.5 %; Nucleated Red Blood Cells % 0 %; Platelet Count 226 10^3/cmm (130-400); Red Blood Count 4.82 10^6/uL (4.1-5.3); Red Cell Distribution Width 19.6 % (12.1-15.1); White Blood Count 10.3 10^3/uL (4.0-10.0)
[2021-08-03 11:45] LABS: INR 0.96 (0.8-1.2)
[2021-08-03 12:03] LABS: Alanine Aminotransferase 17 U/L (0-33); Albumin Level 4.1 g/dL (3.5-5.2); Alkaline Phosphatase 59 IU/L (35-105); Anion Gap 15.5 (5-19); Aspartate Amino Transferase 27 U/L (0-32); Blood Urea Nitrogen 14 mg/dL (8-23); Calcium 9.2 mg/dL (8.5-10.5); Carbon Dioxide 26 mmol/L (22-29); Chloride 100 mmol/L (98-107); Glucose 189 mg/dL (65-115); Osmolality Calculated 290 mOsm/kg (285-295); Potassium 4.5 mmol/L (3.5-5.1); Sodium 137 mmol/L (136-145); Total Bilirubin 0.7 mg/dL (0.15-1.2); Total Protein 7.1 g/dL (6.6-8.7)
[2021-08-03 12:11] VITALS: BP 120/57; PULSE 68; O2SAT 95
[2021-08-03] MEDS: aspirin 325 mg Tablet PO (13:05)
[2021-08-03 13:27] LABS: Glucose Urine UA Norm (Normal); Ketones Urine Negative (Negative); Protein Urine Neg (Negative); Specific Gravity, Urine 1.015 (1.005-1.030); Urine Appearance Cloudy (CLEAR); Urine Color Dark Yellow (Yellow); pH Urine 6 (5-7)
[2021-08-03 13:28] LABS: Add Urine Culture? Yes; Add Urine Microscopic? YES; Bacteria Urine 1+ /hpf; Bilirubin Urine Neg (Negative); Blood Urine 3+ (Negative); Leukocyte Esterase Urine 2+ (Negative); Nitrate Urine Negative (Negative); Squamous Epithelial Cell Urine 0-4 /hpf (0-5); Urobilinogen Urine Norm (Negative); WBC Urine TOO NUMEROUS TO CNT /hpf (0-5)
[2021-08-03 14:15] VITALS: BP 139/65; PULSE 60; O2SAT 99
== END 2021-08-03 14:19 | disposition home or self-care (01) ==
PROVIDERS: Emergency Provider Emergency Medicine; PCP Family Medicine
DX: G45.9 Transient cerebral ischemic attack, unspecified (principal); N30.00 Acute cystitis without hematuria; Z79.02 Long term (current) use of antithrombotics/antiplatelets; Z79.82 Long term (current) use of aspirin; Z79.4 Long term (current) use of insulin; I25.10 Atherosclerotic heart disease of native coronary artery without angina pectoris; I10 Essential (primary) hypertension; E78.5 Hyperlipidemia, unspecified; E11.22 Type 2 diabetes mellitus with diabetic chronic kidney disease; N18.2 Chronic kidney disease, stage 2 (mild); E11.42 Type 2 diabetes mellitus with diabetic polyneuropathy; Z95.1 Presence of aortocoronary bypass graft; Z87.891 Personal history of nicotine dependence
CPT/HCPCS: 36416; 70450; 71045; 80053; 81001; 82962; 85025; 85610; 87086; 93005; 99284

== ENCOUNTER 2021-10-20 16:39 | Emergency (ER) | payer MEDICARE, MEDICAID, SELFPAY ==
[2021-10-20 17:18] VITALS: BP 132/67; PULSE 84; RESP 18; O2SAT 91; BMI 25.6
[2021-10-20 20:33] LABS: Basophils # 0.1 10^3/uL (0.0-0.1); Basophils % 0.7 %; Eosinophils # 0.3 10^3/uL (0.0-0.8); Eosinophils % 4.3 %; Hematocrit 40.2 % (37.0-47.0); Hemoglobin 12.6 g/dL (11.5-15.3); Lymphocytes % 26.3 %; Mean Corpuscular HGB Conc 31.3 g/dL (30.0-36.0); Mean Corpuscular Hemoglobin 25.7 pg (28.0-34.0); Mean Corpuscular Volume 81.9 fl (81-99); Mean Platelet Volume 10.9 fL (7.4-10.4); Monocytes # 0.6 10^3/uL (0.2-0.9); Neutrophils # 4.55 10^3/uL (1.8-7.7); Neutrophils % 60.4 %; Nucleated Red Blood Cells % 0 %; Platelet Count 225 10^3/cmm (130-400); Red Blood Count 4.91 10^6/uL (4.1-5.3); Red Cell Distribution Width 14.3 % (12.1-15.1); White Blood Count 7.5 10^3/uL (4.0-10.0)
[2021-10-20 20:52] LABS: INR 0.87 (0.8-1.2)
[2021-10-20 20:53] LABS: Partial Thromboplastin Time 26.4 SECONDS (23.9-36.7)
[2021-10-20 21:01] LABS: Alanine Aminotransferase 27 U/L (0-33); Albumin Level 4.2 g/dL (3.5-5.2); Alkaline Phosphatase 71 IU/L (35-105); Anion Gap 15.6 (5-19); Aspartate Amino Transferase 27 U/L (0-32); Blood Urea Nitrogen 10 mg/dL (8-23); Calcium 9.4 mg/dL (8.5-10.5); Carbon Dioxide 29 mmol/L (22-29); Chloride 102 mmol/L (98-107); Globulin 3.1 g/dL (1.3-4.6); Glucose 106 mg/dL (65-115); Osmolality Calculated 295 mOsm/kg (285-295); Potassium 3.6 mmol/L (3.5-5.1); Sodium 143 mmol/L (136-145); Total Bilirubin 0.3 mg/dL (0.15-1.2); Total Protein 7.3 g/dL (6.6-8.7)
--- NOTE | 2021-10-20 23:33 | W.ED.GIBLEED ---
HPI - GI Bleed General: Chief complaint: GI Bleed Stated complaint: BLACK STOOL/WEAK & DIZZY/SENT FROM Time Seen by Provider: 10/20/21 23:18 Source: patient Mode of arrival: ambulatory Limitations: no limitations History of Present Illness: HPI Narrative: 75-year-old female who states that she had some cramping abdominal pain 2 days ago she took Pepto-Bismol improved her pain but then she had a very black dark bowel movement she states she is been having fatigue for 1 to 2 weeks. States that still she is concerned that she is having a GI bleed. States that she has not been using her BiPAP for 2 to 3 weeks also has been waking up feeling very tired its been malfunctioning. She denies any abdominal pain currently denies any vomiting or diarrhea currently. Denies any fevers. Denies any worsening proving factors. Associated symptoms: Denies easy bruising, headache(s) or rash Review of Systems Const: Reports: fatigue Eyes: Denies: blurry vision or eye discomfort ENMT: Denies: throat pain or dental pain Card: Denies: chest pain Resp: Denies: dyspnea GI: Reports: melena : Denies: dysuria Musc: Denies: neck pain or back pain Skin/Breast: Denies: rash Neuro: Denies: headache(s) Psych: Denies: depression Mohit/Lymph: Denies: easy bruising All/Imm: Denies: urticaria PFSH ED PFSH: Medical History Atherosclerotic heart disease of [place] coronary artery with unstable angina pectoris -s/p bypass x 4, stenting x 3 Benign essential hypertension with target blood pressure below 140/90 -amlodipine added for more optimal BP control Cholecystitis Chronic kidney disease (CKD) -on gentle IVF due to anticipated coronary angiogram -baseline Cr appears to be around 1.2-1.3 Coronary artery disease Diabetes Dyslipidemia associated with type 2 diabetes mellitus -continue statin GERD (gastroesophageal reflux disease) Hypothyroidism Kidney disease, chronic, stage II (GFR 60-89 ml/min) Peripheral neuropathy [place] spotted fever Sleep apnea Surgical History History of right-sided carotid endarterectomy Hx of cholecystectomy S/P CABG (coronary artery bypass graft) Patient reports 3 times Family History Other Family history non-contributory Social History Smoking and tobacco status: former smoker Alcohol intake: never Household members: family Housing: House Physical Exam Const: COMMON NORMALS: no acute distress, patient oriented x3 and healthy appearing HENMT: COMMON NORMALS: normocephalic and atraumatic HEAD & SCALP: normocephalic and atraumatic Eye: COMMON NORMALS: Equal, round and reactive pupils present and EOMs intact bilaterally PUPIL: Yes Equal, round and reactive pupils present Neck/C-Spine: COMMON NORMALS: full ROM and supple Chest: COMMONS NORMALS: normal inspection of the chest and normal palpation of entire chest wall Resp: COMMON NORMALS: normal respiratory effort, No retractions, No use of accessory muscles and clear to auscultation bilaterally AUSCULTATION: clear to auscultation bilaterally Cardio: COMMON NORMALS: regular rate, regular rhythm and No murmurs present (Cardio) RATE: regular rate RHYTHM: regular rhythm GI: COMMON NORMALS: Normal to inspection, nondistended, normoactive bowel sounds present, Soft to palpation, non-tender and no masses PALPATION: Yes Soft to palpation OTHER: Brown stool Hemoccult negative Extremity: COMMON NORMALS: normal to inspection and full ROM Neuro: COMMON NORMALS: patient oriented x3, moves all extremities and no focal motor deficits Psych: COMMON NORMALS: mental status grossly normal, Normal thought process present and cooperative THOUGHT PROCESS: Normal thought process present Skin: COMMON NORMALS: no rashes or lesions noted and no wounds GENERAL SKIN EXAM: no rashes or lesions noted Course Vital Signs: Vital signs: Vital Signs Pulse Rate 84 10/20/21 17:18 Respiratory Rate 18 10/20/21 17:18 Blood Pressure 132/67 10/20/21 17:18 Pulse Oximetry 91 10/20/21 17:18 MDM - GI Bleed MDM Narrative: Medical decision making narrative: Patient presents here with concern of possible upper GI bleed with blood in her stool she taken Pepto-Bismol and then had dark stool after that. I believe the Pepto-Bismol likely caused her stool to be dark she has no signs of GI bleed I did a rectal exam Hemoccult was negative her hemoglobin here is normal. She has not been using her CPAP due to been malfunctioning over the last 2 weeks could be causing some of her fatigue blood work here is all normal. She is stable for discharge is to follow-up with PCP and return if worsening she understands agrees to plan. Lab Data: Labs: Lab Results 10/20/21 10/20/21 10/20/21 20:21 20:21 20:21 WBC 7.5 10^3/uL 10^3/ uL (4.0-10.0) RBC 4.91 10^6/uL 10^6 /uL (4.1-5.3) Hgb 12.6 g/dL g/dL (11.5-15.3) Hct 40.2 % % (37.0-47.0) MCV 81.9 fl fl (81-99) MCH 25.7 pg L pg (28.0-34.0) MCHC 31.3 g/dL g/dL (30.0-36.0) RDW 14.3 % % (12.1-15.1) Plt Count 225 10^3/cmm 10^3 /cmm (130-400) MPV 10.9 fL H fL (7.4-10.4) Neut % (Auto) 60.4 % % Lymph % (Auto) 26.3 % % [place] % (Auto) 8.0 % % Eos % (Auto) 4.3 % % Baso % (Auto) 0.7 % % Neut # (Auto) 4.55 10^3/uL 10^3 /uL (1.8-7.7) Lymph # (Auto) 2.0 10^3/uL 10^3/ uL (0.8-4.8) [place] # (Auto) 0.6 10^3/uL 10^3/ uL (0.2-0.9) Eos # (Auto) 0.3 10^3/uL 10^3/ uL (0.0-0.8) Baso # (Auto) 0.1 10^3/uL 10^3/ uL (0.0-0.1) Nucleated RBC % (a uto) 0 % % Nucleated RBCs # 0.0 /100WBC /100W BC PT 12.20 SECONDS SEC ONDS (12.1-14.9) INR 0.87 (0.8-1.2) APTT 26.4 SECONDS SECO NDS (23.9-36.7) Sodium 143 mmol/L mmol/L (136-145) Potassium 3.6 mmol/L mmol/L (3.5-5.1) Chloride 102 mmol/L mmol/L (98-107) Carbon Dioxide 29 mmol/L mmol/L (22-29) Anion Gap 15.6 (5-19) BUN 10 mg/dL mg/dL (8-23) Creatinine 1.0 mg/dL H mg/dL (0.5-0.9) GFR Calculation Not Reportable Glucose 106 mg/dL mg/dL (65-115) Calculated Osmolal ity 295 mOsm/kg mOsm/ kg (285-295) Calcium 9.4 mg/dL mg/dL (8.5-10.5) Total Bilirubin 0.3 mg/dL mg/dL (0.15-1.2) AST 27 U/L U/L (0-32) ALT 27 U/L U/L (0-33) Alkaline Phosphata se 71 IU/L IU/L (35-105) Total Protein 7.3 g/dL g/dL (6.6-8.7) Albumin 4.2 g/dL g/dL (3.5-5.2) Globulin 3.1 g/dL g/dL (1.3-4.6) Discharge Plan Discharge Patient Disposition: Home Clinical Impression: Black stool, Fatigue Condition: Stable Prescriptions: No Action Levemir Flexpen 100 unit/mL (3 mL) Insulin Pen 40 unit SUBCUT BID RF: 0 pantoprazole 40 mg Tablet,Delayed Release (Dr/Ec) 40 mg PO DAILY RF: 0 furosemide 20 mg Tablet 20 mg PO DAILY PRN (Reason: Edema) RF: 0 albuterol 90 mcg/actuation Aerosol 90 mcg INHALATION Q6H PRN (Reason: Shortness Of Breath) RF: 0 metoprolol tartrate 25 mg Tablet 12.5 mg PO BID RF: 0 isosorbide mononitrate 30 mg tablet extended release 24 hr See Rx Instructions .ROUTE .COMPLEX RF: 0 potassium chloride 10 mEq tablet extended release 10 meq PO DAILY PRN (Reason: with lasix) RF: 0 clopidogrel 75 mg tablet 75 mg PO DAILY RF: 0 levothyroxine 50 mcg tablet 50 mcg PO DAILY RF: 0 ropinirole 2 mg tablet 2 mg PO BEDTIME RF: 0 diltiazem HCl 120 mg capsule,extended release 24hr 120 mg PO DAILY RF: 0 insulin lispro [Humalog KwikPen Insulin] 100 unit/mL insulin pen See Rx Instructions .ROUTE .COMPLEX RF: 0 rosuvastatin 10 mg tablet 10 mg PO DAILY RF: 0 ranolazine 500 mg tablet extended release 12 hr 500 mg PO BID RF: 0 fenofibrate nanocrystallized 145 mg tablet 145 mg PO DAILY RF: 0 multivitamin Tablet 1 tab PO DAILY RF: 0 aspirin 81 mg Tablet 81 mg PO DAILY RF: 0 Discharge Orders: Discharge ED (Routine); Ordered 10/20/21 Ordered By: Tan Flores Referrals: Roverto Arnold MD [Primary Care Provider] - 1-3 days Discharge Diet: Advance as tolerated Discharge Activity: Resume usual activity Patient Instructions: Fatigue (ED) Coding Level of Care Code ED Blending Supervisor for Bev Rivera
== END 2021-10-20 23:43 | disposition home or self-care (01) ==
PROVIDERS: Physician Assistant; Emergency Provider Emergency Medicine; PCP Family Medicine
DX: R19.5 Other fecal abnormalities (principal); R53.83 Other fatigue; Z79.02 Long term (current) use of antithrombotics/antiplatelets; Z79.82 Long term (current) use of aspirin; Z79.4 Long term (current) use of insulin; I25.10 Atherosclerotic heart disease of native coronary artery without angina pectoris; E78.5 Hyperlipidemia, unspecified; E11.22 Type 2 diabetes mellitus with diabetic chronic kidney disease; I12.9 Hypertensive chronic kidney disease with stage 1 through stage 4 chronic kidney disease, or unspecified chronic kidney disease; N18.2 Chronic kidney disease, stage 2 (mild); E11.42 Type 2 diabetes mellitus with diabetic polyneuropathy; Z87.891 Personal history of nicotine dependence; Z95.1 Presence of aortocoronary bypass graft
CPT/HCPCS: 36415; 80053; 85025; 85610; 85730; 99283

== ENCOUNTER 2021-10-28 09:22 | Outpatient (CLI) | payer MEDICARE, MEDICAID, SELFPAY ==
--- NOTE | 2021-10-28 09:29 | US_ITS ---
WS: [id number] ULTRASOUND SOFT TISSUES neck. HISTORY: LUMP IN NECK COMPARISON: None available. TECHNIQUE: 2-D and color Doppler imaging is submitted. Ultrasound is directed along the anterior inferior neck due to a palpable abnormality. Area of intere st is along the inferior neck. Ultrasound in this area demonstrates no abnormalities. There is no anton id or cystic mass. Symmetric appearance of the soft tissues bilaterally. No lymph nodes are identifie d. US/US soft tissue head neck [id number] IMPRESSION: No abnormality noted along the inferior midline of the neck. If there is contin ued concern for pathology consider follow-up neck CT with IV contrast.
== END 2021-10-28 09:23 | disposition home or self-care (01) ==
LOC: RAD 09:27
PROVIDERS: PCP Family Medicine; Visit Provider Nurse Practitioner
DX: R22.1 Localized swelling, mass and lump, neck (principal)
CPT/HCPCS: 76536

== ENCOUNTER 2022-03-04 18:26 | Emergency (ER) | payer MEDICARE, MEDICAID, SELFPAY ==
[2022-03-04 18:37] VITALS: BP 125/61; PULSE 78; RESP 18; TEMP 36.6; O2SAT 96; BMI 22.3
--- NOTE | 2022-03-04 18:47 | PC.NURSE ---
bladder scan performed and shown 379 ml. provider notified.
--- NOTE | 2022-03-04 18:56 | XRR_ITS ---
PROCEDURE INFORMATION: Exam: XR Abdomen Exam date and time: 03/04/2022 7:04 PM Age: 76 years old Clinical indication: Other: Unable to urinate; Additional info: Constipation TECHNIQUE: Imaging protocol: XR of the abdomen. Views: Frontal supine view of the abdomen. 1 View. COMPARISON: CR XR KUB [id number] 08/18/2018 12:19 PM FINDINGS: Gastrointestinal tract: Mild constipation without dilation to indicate obstruction. Bones/joints: Unremarkable. XR/XR KUB [id number] IMPRESSION: Mild constipation without dilation to indicate obstruction.
[2022-03-04 18:58] LABS: Basophils % 0.3 %; Eosinophils # 0.1 10^3/uL (0.0-0.8); Eosinophils % 2.2 %; Hematocrit 34.3 % (37.0-47.0); Hemoglobin 10.7 g/dL (11.5-15.3); Lymphocytes # 1.5 10^3/uL (0.8-4.8); Lymphocytes % 24.8 %; Mean Corpuscular HGB Conc 31.2 g/dL (30.0-36.0); Mean Corpuscular Hemoglobin 25.3 pg (28.0-34.0); Mean Corpuscular Volume 81.1 fl (81-99); Mean Platelet Volume 10.5 fL (7.4-10.4); Monocytes # 0.6 10^3/uL (0.2-0.9); Monocytes % 10.1 %; Neutrophils # 3.62 10^3/uL (1.8-7.7); Neutrophils % 62.1 %; Nucleated Red Blood Cells % 0 %; Platelet Count 216 10^3/cmm (130-400); Red Blood Count 4.23 10^6/uL (4.1-5.3); White Blood Count 5.8 10^3/uL (4.0-10.0)
--- NOTE | 2022-03-04 19:00 | ED_ITS ---
HPI - Female Genitourinary General: Chief complaint: Urogenital-Female Stated complaint: not urinating Time Seen by Provider: 03/04/22 18:41 Source: patient Mode of arrival: ambulatory Limitations: no limitations History of Present Illness: 76-year-old female who states she has chronic kidney disease states that she is not on dialysis typically urinates normally states that today she has not urinated since this morning she states she is felt like she had to go to just has not been able to urinate she had some abdominal distention along with constipation. She denies any pain denies any vomiting de nies any fevers. Associated symptoms: Deny abdominal pain, headache(s) or nausea Review of Systems Const: Denies: fever(s), chills, body aches or change in appetite Eyes: Denies: blurry vision or eye discomfort ENMT: Denies: throat pain or dental pain Card: Denies: chest pain Resp: Denies: dyspnea GI: Reports: constipation; Denies: abdominal pain, nausea, vomiting or diarrhea : Reports: difficulty voiding; Denies: dysuria Musc: Denies: neck pain or back pain Skin/Breast: Denies: rash Neuro: Denies: headache(s) Psych: Denies: depression Mohit/Lymph: Denies: easy bruising All/Imm: Denies: urticaria PFSH ED PFSH: Medical History Atherosclerotic heart disease of [place] coronary artery with unstable angina pectoris -s/p bypass x 4, stenting x 3 Benign essential hypertension with target blood pressure below 140/90 -amlodipine added for more optimal BP control Cholecystitis Chronic kidney disease (CKD) -on gentle IVF due to anticipated coronary angiogram -baseline Cr appears to be around 1.2-1.3 Coronary artery disease Diabetes Dyslipidemia associated with type 2 diabetes mellitus -continue statin GERD (gastroesophageal reflux disease) Hypothyroidism Kidney disease, chronic, stage II (GFR 60-89 ml/min) Peripheral neuropathy Williamson spotted fever Sleep apnea Surgical History History of right-sided carotid endarterectomy Hx of cholecystectomy S/P CABG (coronary artery bypass graft) Patient reports 3 times Family History Other Family history non-contributory Social History Smoking and tobacco status: former smoker Alcohol intake: never Household members: family Housing: House Physical Exam Const: COMMON NORMALS: no acute distress, patient oriented x3 and healthy appearing HENMT: COMMON NORMALS: normocephalic and atraumatic HEAD & SCALP: normocephalic and atraumatic Eye: COMMON NORMALS: Equal, round and reactive pupils present and EOMs intact bilaterally PUPIL: Yes Equal, round and reactive pupils present Neck/C-Spine: COMMON NORMALS: full ROM and supple Chest: COMMONS NORMALS: normal inspection of the chest and normal palpation of entire chest wall Resp: COMMON NORMALS: normal respiratory effort, No retractions, No use of accessory muscles and clear to auscultation bilaterally AUSCULTATION: clear to auscultation bilaterally Cardio: COMMON NORMALS: regular rate, regular rhythm and No murmurs present (Cardio) RATE: regular rate RHYTHM: regular rhythm GI: COMMON NORMALS: Normal to inspection, nondistended, normoactive bowel sounds present, Soft to palpation, non-tender and no masses PALPATION: Yes Soft to palpation Extremity: COMMON NORMALS: normal to inspection and full ROM Neuro: COMMON NORMALS: patient oriented x3, moves all extremities and no focal motor deficits Psych: COMMON NORMALS: mental status grossly normal, Normal thought process present and cooperative THOUGHT PROCESS: Normal thought process present Skin: COMMON NORMALS: no rashes or lesions noted and no wounds GENERAL SKIN EXAM: no rashes or lesions noted Course Vital Signs: Vital signs: Vital Signs Temperature 97.9 F 03/04/22 18:37 Pulse Rate 72 03/04/22 20:10 Respiratory Rate 18 03/04/22 20:10 Blood Pressure 164/66 03/04/22 20:10 Pulse Oximetry 93 03/04/22 20:10 MDM - Female Medical Decision Making Patient presents with urinary retention Ramesh was placed she did have 600 out kidney function here is normal she feels much improved after the Ramesh was placed we will give her leg bag her follow-up with urology she sees her referral manager tomorrow as well we will prescribe her MiraLAX for her constipation. Lab Data : 03/04/22 18:50 03/04/22 18:50 Radiology Impressions KUB X-Ray 03/04/22 18:56 IMPRESSION: Mild constipation without dilation to indicate obstruction. Laboratory Results WBC 5.8 10^3/uL (4.0-10.0) 03/04/22 18:50 RBC 4.23 10^6/uL (4.1-5.3) 03/04/22 18:50 Hgb 10.7 g/dL (11.5-15.3) L 03/04/22 18:50 Hct 34.3 % (37.0-47.0) L 03/04/22 18:50 MCV 81.1 fl (81-99) 03/04/22 18:50 MCH 25.3 pg (28.0-34.0) L 03/04/22 18:50 MCHC 31.2 g/dL (30.0-36.0) 03/04/22 18:50 RDW 15.0 % (12.1-15.1) 03/04/22 18:50 Plt Count 216 10^3/cmm (130-400) 03/04/22 18:50 MPV 10.5 fL (7.4-10.4) H 03/04/22 18:50 Neut % (Auto) 62.1 % 03/04/22 18:50 Lymph % (Auto) 24.8 % 03/04/22 18:50 [place] % (Auto) 10.1 % 03/04/22 18:50 Eos % (Auto) 2.2 % 03/04/22 18:50 Baso % (Auto) 0.3 % 03/04/22 18:50 Neut # (Auto) 3.62 10^3/uL (1.8-7.7) 03/04/22 18:50 Lymph # (Auto) 1.5 10^3/uL (0.8-4.8) 03/04/22 18:50 [place] # (Auto) 0.6 10^3/uL (0.2-0.9) 03/04/22 18:50 Eos # (Auto) 0.1 10^3/uL (0.0-0.8) 03/04/22 18:50 Baso # (Auto) 0.0 10^3/uL (0.0-0.1) 03/04/22 18:50 Nucleated RBC % (auto) 0 % 03/04/22 18:50 Nucleated RBCs # 0.0 /100WBC 03/04/22 18:50 Sodium 140 mmol/L (136-145) 03/04/22 18:50 Potassium 3.7 mmol/L (3.5-5.1) 03/04/22 18:50 Chloride 104 mmol/L (98-107) 03/04/22 18:50 Carbon Dioxide 25 mmol/L (22-29) 03/04/22 18:50 Anion Gap 14.7 (5-19) 03/04/22 18:50 BUN 12 mg/dL (8-23) 03/04/22 18:50 Creatinine 1.5 mg/dL (0.5-0.9) H 03/04/22 18:50 GFR Calculation Not Reportable 03/04/22 18:50 Glucose 192 mg/dL (65-115) H 03/04/22 18:50 Calculated Osmolality 295 mOsm/kg (285-295) 03/04/22 18:50 Calcium 8.7 mg/dL (8.5-10.5) 03/04/22 18:50 Total Bilirubin 0.2 mg/dL (0.15-1.2) 03/04/22 18:50 AST 25 U/L (0-32) 03/04/22 18:50 ALT 16 U/L (0-33) 03/04/22 18:50 Alkaline Phosphatase 38 IU/L (35-105) 03/04/22 18:50 Total Protein 7.0 g/dL (6.6-8.7) 03/04/22 18:50 Albumin 4.1 g/dL (3.5-5.2) 03/04/22 18:50 Globulin 2.9 g/dL (1.3-4.6) 03/04/22 18:50 Urine Color Yellow (Yellow) 03/04/22 19:55 Urine Appearance Clear (CLEAR) 03/04/22 19:55 Urine pH 6.5 (5-7) 03/04/22 19:55 Ur Specific [place] 1.005 (1.005-1.030) 03/04/22 19:55 Urine Protein Neg (Negative) 03/04/22: Urine Glucose (UA) Norm (Normal) 03/04/22 19:55 Urine Ketones Negative (Negative) 03/04/22 19:55 Urine Blood Neg (Negative) 03/04/22 19:55 Urine Nitrate Negative (Negative) 03/04/22 19:55 Urine Bilirubin Neg (Negative) 03/04/22 19:55 Urine Urobilinogen Norm mg/dL (Negative) 03/04/22 19:55 Ur Leukocyte Esterase Trace (Negative) H 03/04/22 19:55 Amorphous Sediment Not Reportable 03/04/22 19:55 Discharge Plan Discharge Patient Disposition: Home Clinical Impression: Acute urinary retention, Constipation Condition: Stable Prescriptions: New Miralax 17 gram/dose powder 17 g PO DAILY 4 Days 0RF No Action Levemir Flexpen 100 unit/mL (3 mL) Insulin Pen 40 unit SUBCUT BID 0RF pantoprazole 40 mg Tablet,Delayed Release (Dr/Ec) 40 mg PO DAILY 0RF furosemide 20 mg Tablet 20 mg PO DAILY PRN (Reason: Edema) 0RF albuterol 90 mcg/actuation Aerosol 90 mcg INHALATION Q6H PRN (Reason: Shortness Of Breath) 0RF metoprolol tartrate 25 mg Tablet 12.5 mg PO BID 0RF isosorbide mononitrate 30 mg tablet extended release 24 hr See Rx Instructions .ROUTE .COMPLEX 0RF Rx Instructions: 60 mg orally in the morning/ 30 mg orally in the evening potassium chloride 10 mEq tablet extended release 10 meq PO DAILY PRN (Reason: with lasix) 0RF clopidogrel 75 mg tablet 75 mg PO DAILY 0RF levothyroxine 50 mcg tablet 50 mcg PO DAILY 0RF ropinirole 2 mg tablet 2 mg PO BEDTIME 0RF diltiazem HCl 120 mg capsule,extended release 24hr 120 mg PO DAILY 0RF insulin lispro [Humalog KwikPen Insulin] 100 unit/mL insulin pen See Rx Instructions .ROUTE .COMPLEX 0RF Rx Instructions: PER SLIDING SCALE rosuvastatin 10 mg tablet 10 mg PO DAILY 0RF ranolazine 500 mg tablet extended release 12 hr 500 mg PO BID 0RF fenofibrate nanocrystallized 145 mg tablet 145 mg PO DAILY 0RF multivitamin Tablet 1 tab PO DAILY 0RF aspirin 81 mg Tablet 81 mg PO DAILY 0RF Discharge Orders: Discharge ED (Routine); Ordered 03/04/22 Ordered By: Tan Flores Referrals: Roverto Arnold MD [Primary Care Provider] - Jude Gabriel MD [Physician] - 1-3 days Discharge Diet: Advance as tolerated Discharge Activity: Resume usual activity Patient Instructions: Constipation (ED), Acute Urinary Retention in Women (ED) Coding Level of Care Code ED Fish Processor for Chg Fwd Exam Comprehensive
[2022-03-04] MEDS: sodium chloride 0.9% 1,000 ML 999 ML IV (19:05)
[2022-03-04 19:10] VITALS: BP 143/60; PULSE 78; RESP 18; O2SAT 92
[2022-03-04] MEDS: lactulose oral liq 20 gm/30 mL UDC 30 GM PO (19:21)
[2022-03-04 19:25] LABS: Alanine Aminotransferase 16 U/L (0-33); Albumin Level 4.1 g/dL (3.5-5.2); Alkaline Phosphatase 38 IU/L (35-105); Anion Gap 14.7 (5-19); Aspartate Amino Transferase 25 U/L (0-32); Blood Urea Nitrogen 12 mg/dL (8-23); Calcium 8.7 mg/dL (8.5-10.5); Carbon Dioxide 25 mmol/L (22-29); Chloride 104 mmol/L (98-107); Globulin 2.9 g/dL (1.3-4.6); Glucose 192 mg/dL (65-115); Osmolality Calculated 295 mOsm/kg (285-295); Potassium 3.7 mmol/L (3.5-5.1); Sodium 140 mmol/L (136-145); Total Bilirubin 0.2 mg/dL (0.15-1.2)
[2022-03-04 19:40] VITALS: BP 143/60; PULSE 76; RESP 18; O2SAT 93
[2022-03-04 20:10] VITALS: BP 164/66; PULSE 72; RESP 18; O2SAT 93
[2022-03-04 20:16] LABS: Add Urine Microscopic? YES; Bilirubin Urine Neg (Negative); Blood Urine Neg (Negative); Glucose Urine UA Norm (Normal); Ketones Urine Negative (Negative); Leukocyte Esterase Urine Trace (Negative); Nitrate Urine Negative (Negative); Protein Urine Neg (Negative); Specific Gravity, Urine 1.005 (1.005-1.030); Urine Appearance Clear (CLEAR); Urine Color Yellow (Yellow); Urobilinogen Urine Norm (Negative); pH Urine 6.5 (5-7)
[2022-03-04 20:23] VITALS: BP 157/66; PULSE 74; RESP 18; O2SAT 98
--- NOTE | 2022-03-04 20:31 | PC.NURSE ---
Pt provided urinary leg bag in addition to other drainage bag. Instructions given on use.
[2022-03-04 20:50] LABS: Add Urine Culture? No; Calcium Oxalate Crystals Urine 0-4 /hpf; RBC Urine 0-4 /hpf (0-2); Squamous Epithelial Cell Urine 0-4 /hpf (0-5); WBC Urine 0-4 /hpf (0-5)
--- NOTE | 2022-03-05 12:22 | DCPLANNER ---
Addendum entered by Didi Rosado 03/20/22 18:18: Patient had a follow up appointment scheduled for 03.17.22 with urology - patient did attend appointment. Addendum entered by Didi Rosado 03/12/22 15:42: Patient has a follow up appointment scheduled for Thursday, March 17, 2022 at 8:00 with Jami Davison. Clinic will call patient with appointment information. Original Note: foreign exchange services manager had message to schedule a follow up appointment for patient with urology. foreign exchange services manager sent patients information to the front office staff at urology. Patients information will be printed and reviewed. Clinic will call patient with appointment information.
== END 2022-03-04 20:25 | disposition home or self-care (01) ==
PROVIDERS: Emergency Provider Emergency Medicine; PCP Family Medicine
DX: R33.9 Retention of urine, unspecified (principal); K59.00 Constipation, unspecified; I12.9 Hypertensive chronic kidney disease with stage 1 through stage 4 chronic kidney disease, or unspecified chronic kidney disease; E11.22 Type 2 diabetes mellitus with diabetic chronic kidney disease; N18.2 Chronic kidney disease, stage 2 (mild); E78.5 Hyperlipidemia, unspecified; E03.9 Hypothyroidism, unspecified
CPT/HCPCS: 51702; 51798; 74018; 80053; 81001; 85025; 96360; 96361; 99284; J7030

== ENCOUNTER → 2022-03-17 06:58 | Outpatient (BNVA) | payer MEDICARE, MEDICAID, SELFPAY | PROVIDERS: PCP Family Medicine; Visit Provider Nurse Practitioner Family | DX: R33.9 Retention of urine, unspecified (principal); R33.8 Other retention of urine; N39.0 Urinary tract infection, site not specified | CPT/HCPCS: 51798; 81003; 99203 ==

== ENCOUNTER → 2022-12-08 11:21 | Outpatient (BNVA) | payer MEDICARE, MEDICAID, SELFPAY | PROVIDERS: PCP Family Medicine; Visit Provider Orthopaedic Surgery | DX: M51.36 Other intervertebral disc degeneration, lumbar region (principal); M48.062 Spinal stenosis, lumbar region with neurogenic claudication | CPT/HCPCS: 72110; 99204 ==

== ENCOUNTER 2023-01-05 09:13 | Outpatient (CLI) | payer MEDICARE, MEDICAID, SELFPAY ==
--- NOTE | 2023-01-05 09:30 | MR_ITS ---
WS: [id number] MRI LUMBAR SPINE NONCONTRAST TECHNIQUE: Sagittal T1, T2 and STIR imaging. Axial T1 and T2 imaging. CLINICAL INFORMATION: lower back pain COMPARISON: None. FINDINGS: Mild lumbar curve. No acute compression. No high-grade central canal stenosis. Prior sternotomy. L1-L2: Mild facet arthropathy. Spinal canal and foramen are patent. L2-L3: Mild annular bulging. Slight narrowing of the RIGHT subarticular recess. Mild RIGHT foraminal narrowing. Spinal canal is patent. Mild facet arthropathy. L3-L4: Mild annular bulging. Impingement on the LEFT subarticular recess and traversing LEFT L4 nerve root. Mild central canal stenosis. Moderate facet arthropathy. Moderate LEFT and mild RIGHT foramina l narrowing. L4-L5: Mild annular bulging. Tiny annular fissure. Impingement on the traversing RIGHT greater than L EFT L5 nerve roots. Moderate facet arthropathy. Foramen are patent. L5-S1: Mild annular bulging with slight effacement of ventral thecal sac. Slight impingement traversi ng RIGHT greater than LEFT S1 nerve roots. Moderate facet arthropathy. Mild to moderate RIGHT and no significant LEFT foraminal narrowing. Moderate facet arthropathy. Small bilateral renal cysts. Normal paravertebral soft tissues. MR/MR lumbar spine wo con* [id number] IMPRESSION: 1. Mild lumbar curve. No acute compression. No high-grade central canal stenos is. 2. Mild central canal stenosis L3-L4 with impingement on the LEFT greater than RIGHT subarticular recess. 3. Annular bulging L4-L5 with a small annular fissure. Impingement traversing RIGHT L5 nerve root in the subarticular recess. 4. Shallow central protrusion L5-S1 impinges the traversing RIGHT greater than LEFT S1 nerve roots. Mild to moderate RIGHT L5-S1 foraminal narrowing. 5. Mild RIGHT L2-L3 foraminal narrowing. 6. Mild to moderate LEFT L3-L4 foraminal narrowing. 7. Moderate facet arthropathy L4-L5 and L5-S1.
== END 2023-01-05 09:14 | disposition home or self-care (01) ==
LOC: RAD 09:14
PROVIDERS: PCP Family Medicine; Visit Provider Orthopaedic Surgery
DX: M47.816 Spondylosis without myelopathy or radiculopathy, lumbar region (principal); M47.817 Spondylosis without myelopathy or radiculopathy, lumbosacral region; M48.061 Spinal stenosis, lumbar region without neurogenic claudication; M51.27 Other intervertebral disc displacement, lumbosacral region; M51.26 Other intervertebral disc displacement, lumbar region
CPT/HCPCS: 72148

== ENCOUNTER → 2023-02-04 08:18 | Outpatient (BNVA) | payer MEDICARE, MEDICAID, SELFPAY | PROVIDERS: PCP Family Medicine; Visit Provider Physician Assistant | DX: M48.062 Spinal stenosis, lumbar region with neurogenic claudication (principal); M51.36 Other intervertebral disc degeneration, lumbar region | CPT/HCPCS: 99203 ==

== ENCOUNTER 2023-03-05 11:36 | Emergency (ER) | payer MEDICARE, MEDICAID, SELFPAY ==
[2023-03-05 11:40] VITALS: BP 135/66; PULSE 67; RESP 15; TEMP 36.8; O2SAT 93; BMI 21.5
--- NOTE | 2023-03-05 11:49 | W.ED.ABDPA2 ---
HPI - Abdominal Pain General: Chief Complaint: Abdominal Pain Stated Complaint: abnormal labs, abd pains Time Seen by Provider: 03/05/23 11:48 History of Present Illness: 77-year-old female comes in today with complaints of abdominal discomfort. Patient has had abdominal pain for the last 3 months. Patient was seen by primary care last week and was noted to have elevation in her lipase and was concerned for pancreatitis and was referred to ER for further evaluation. Caregiver reports that they will only be able to get in contact with them today which prompted him to come to the ER this morning. Patient appears nontoxic. Patient appears in mild to no pain at rest. Patient has a history of insulin-dependent diabetes mellitus, coronary artery disease, hypothyroidism, GERD, restless legs, CHF. Patient had her gallbladder removed about 30 years ago. Associated Symptoms: Reports constipation, diarrhea and nausea; Denies fever(s) and vomiting Review of Systems Const: Denies: fever(s) Card: Denies: chest pain Resp: Denies: dyspnea GI: Reports: abdominal pain, nausea, diarrhea and constipation; Denies: vomiting : Denies: flank pain Musc: Denies: neck pain or back pain Skin/Breast: Denies: rash Neuro: Denies: headache(s) PFSH ED PFSH: Medical History Atherosclerotic heart disease of [place] coronary artery with unstable angina pectoris -s/p bypass x 4, stenting x 3 Benign essential hypertension with target blood pressure below 140/90 -amlodipine added for more optimal BP control Cholecystitis Chronic kidney disease (CKD) -on gentle IVF due to anticipated coronary angiogram -baseline Cr appears to be around 1.2-1.3 Coronary artery disease Diabetes Dyslipidemia associated with type 2 diabetes mellitus -continue statin GERD (gastroesophageal reflux disease) Hypothyroidism Kidney disease, chronic, stage II (GFR 60-89 ml/min) Peripheral neuropathy Recurrent UTI [place] spotted fever Sleep apnea Surgical History History of right-sided carotid endarterectomy Hx of cholecystectomy S/P CABG (coronary artery bypass graft) Patient reports 3 times Family History Father , AT AGE 74 Natural with unknown cause Mother , AT AGE 81 Heart attack Other Family history non-contributory Social History Smoking and tobacco status: former smoker Alcohol intake: never Substance/Drug Use: never Marital status: Current occupational status: retired Physical Exam Const: COMMON NORMALS: alert HENMT: HEAD & SCALP: normal to inspection Neck/C-Spine: COMMON NORMALS: full ROM Chest: COMMONS NORMALS: normal inspection of the chest Resp: COMMON NORMALS: normal respiratory effort and clear to auscultation bilaterally AUSCULTATION: clear to auscultation bilaterally Cardio: COMMON NORMALS: regular rate and regular rhythm RATE: regular rate RHYTHM: regular rhythm GI: COMMON NORMALS: Soft to palpation PALPATION: Yes Soft to palpation and Yes Tenderness to palpation present (GI) Details: LLQ : COMMON NORMALS: Yes no CVA tenderness BLADDER/KIDNEY EXAM: Yes no CVA tenderness Back/Pelvis: COMMON NORMALS: no CVA tenderness Extremity: COMMON NORMALS: no pedal edema Neuro: SENSORIUM/ORIENTATION: Yes alert Skin: COMMON NORMALS: turgor normal GENERAL SKIN EXAM: turgor normal Course Vital Signs: Vital signs: Vital Signs Temperature 98.2 F 03/05/23 11:40 Pulse Rate 83 03/05/23 13:11 Respiratory Rate 16 03/05/23 13:11 Blood Pressure 119/66 03/05/23 13:11 Pulse Oximetry 97 03/05/23 13:11 Oxygen Delivery Me thod Room Air 03/05/23 13:11 MDM - Abdominal Pain Medical Decision Making 77-year-old female comes in today with complaints of left-sided lower abdominal pain on and off for the last 3 months. Patient appears nontoxic. Patient was seen about 1 week ago and had laboratory values noted and was seen to have elevation in her lipase and was referred to the ER for further evaluation of relating pancreatitis or bowel obstruction. On exam abdomen soft with some tenderness in left lower quadrant. Bowel sounds are active. Skin is warm and dry. Patient does have some mild dementia and is a poor historian. Differential diagnosis includes GERD, pancreatitis, gastroparesis, diverticulitis. CT noted some diverticulosis without diverticulitis, moderate constipation without bowel obstruction, no other significant abnormalities or surgical abdomen was noted. CBC and CMP was unremarkable except for some mild renal insufficiency with a creatinine 1.0. Lipase was 102. Review of the record noted that prior lipase was 95. No signs of acute illness was noted. Believe patient's abdominal pain may be secondary to slow transit constipation versus irritable bowel syndrome of constipation variety. Gastroparesis may also be considered secondary to patient's diabetes mellitus. Recommend patient follow-up with primary care for further evaluation and treatment with colonoscopy. Patient and family both reported understanding and agreed to plan. Family wished to go back to primary care for colonoscopy of referral. Lab Data 03/05/23 12:25 03/05/23 12:25 Labs/Radiology: Radiology Impressions Abdomen/Pelvis CT 03/05/23 12:04 IMPRESSION: 1. Mild rectosigmoid constipation. 2. A few sigmoid diverticuli. No evidence of acute diverticulitis. 3. No evidence of high-grade small or large bowel obstruction. 4. Diffuse fatty infiltration liver with mild hepatomegaly. 5. Prior cholecystectomy. 6. Slightly aneurysmal abdominal aorta with dense calcification appears stable. 7. No other acute findings. Laboratory Results WBC 4.9 10^3/uL (4.0-10.0) 03/05/23 12:25 RBC 5.20 10^6/uL (4.1-5.3) 03/05/23 12:25 Hgb 12.9 g/dL (11.5-15.3) 03/05/23 12:25 Hct 41.7 % (37.0-47.0) 03/05/23 12:25 MCV 80.2 fl (81-99) L 03/05/23 12:25 MCH 24.8 pg (28.0-34.0) L 03/05/23 12:25 MCHC 30.9 g/dL (30.0-36.0) 03/05/23 12:25 RDW 21.7 % (12.1-15.1) H 03/05/23 12:25 Plt Count 183 10^3/cmm (130-400) 03/05/23 12:25 MPV 10.1 fL (7.4-10.4) 03/05/23 12:25 Neut % (Auto) 63.2 % 03/05/23 12:25 Lymph % (Auto) 22.4 % 03/05/23 12:25 [place] % (Auto) 11.4 % 03/05/23 12:25 Eos % (Auto) 2.2 % 03/05/23 12:25 Baso % (Auto) 0.4 % 03/05/23 12:25 Neut # (Auto) 3.11 10^3/uL (1.8-7.7) 03/05/23 12: Lymph # (Auto) 1.1 10^3/uL (0.8-4.8) 03/05/23 12:25 [place] # (Auto) 0.6 10^3/uL (0.2-0.9) 03/05/23 12:25 Eos # (Auto) 0.1 10^3/uL (0.0-0.8) 03/05/23 12:25 Baso # (Auto) 0.0 10^3/uL (0.0-0.1) 03/05/23 12:25 Nucleated RBC % (auto) 0 % 03/05/23 12: Nucleated RBCs # 0.0 /100WBC 03/05/23 12:25 Sodium 138 mmol/L (136-145) 03/05/23 12:25 Potassium 4.7 mmol/L (3.5-5.1) 03/05/23 12:25 Chloride 102 mmol/L (98-107) 03/05/23 12:25 Carbon Dioxide 27 mmol/L (22-29) 03/05/23 12:25 Anion Gap 13.7 (5-19) 03/05/23 12:25 BUN 11 mg/dL (8-23) 03/05/23 12:25 Creatinine 1.0 mg/dL (0.5-0.9) H 03/05/23 12:25 GFR Calculation Not Reportable 03/05/23 12:25 Glucose 166 mg/dL (65-115) H 03/05/23 12:25 Calculated Osmolality 289 mOsm/kg (285-295) 03/05/23 12:25 Calcium 8.9 mg/dL (8.5-10.5) 03/05/23 12:25 Total Bilirubin 0.3 mg/dL (0.15-1.2) 03/05/23 12:25 AST 38 U/L (0-32) H 03/05/23 12:25 ALT 25 U/L (0-33) 03/05/23 12:25 Alkaline Phosphatase 44 U/L (35-105) 03/05/23 12:25 Total Protein 6.3 g/dL (6.6-8.7) L 03/05/23 12:25 Albumin 3.8 g/dL (3.5-5.2) 03/05/23 12:25 Globulin 2.5 g/dL (1.3-4.6) 03/05/23 12:25 Triglycerides 293 mg/dL (0-150) H 03/05/23 12:25 Lipase 102 U/L (13-60) H 03/05/23 12:25 Urine Color Yellow (Yellow) 03/05/23 13:09 Urine Appearance Clear (CLEAR) 03/05/23 13:09 Urine pH 7 (5-7) 03/05/23 13:09 Ur Specific [place] 1.010 (1.005-1.030) 03/05/23 13:09 Urine Protein Neg (Negative) 03/05/23 13:09 Urine Glucose (UA) 4+ (Normal) H 03/05/23 13:09 Urine Ketones Negative (Negative) 03/05/23 13:09 Urine Blood Neg (Negative) 03/05/23 13:09 Urine Nitrate Negative (Negative) 03/05/23 13:09 Urine Bilirubin Neg (Negative) 03/05/23 13:09 Urine Urobilinogen Norm mg/dL (Negative) 03/05/23 13:09 Ur Leukocyte Esterase Negative (Negative) 03/05/23 13:09 Discharge Plan Discharge Patient Disposition: Home Clinical Impression: Abdominal pain Qualifiers: Abdominal location: generalized Qualified Code(s): R10.84 - Generalized abdominal pain Constipation Qualifiers: Constipation type: slow transit constipation Qualified Code(s): K59.01 - Slow transit constipation Condition: Stable Prescriptions: No Action methenamine hippurate 1 gram tablet 1 g PO BID Qty: 60 12RF Rx Instructions: Take 1000 mg of vitamin C with each dose of methenamine Levemir Flexpen 100 unit/mL (3 mL) Insulin Pen 40 unit SUBCUT BID pantoprazole 40 mg Tablet,Delayed Release (Dr/Ec) 40 mg PO DAILY furosemide 20 mg Tablet 20 mg PO DAILY PRN (Reason: Edema) albuterol 90 mcg/actuation Aerosol 90 mcg INHALATION Q6H PRN (Reason: Shortness Of Breath) metoprolol tartrate 25 mg Tablet 12.5 mg PO BID isosorbide mononitrate 30 mg tablet extended release 24 hr See Rx Instructions .ROUTE .COMPLEX Rx Instructions: 60 mg orally in the morning/ 30 mg orally in the evening potassium chloride 10 mEq tablet extended release 10 meq PO DAILY PRN (Reason: with lasix) clopidogrel 75 mg tablet 75 mg PO DAILY levothyroxine 50 mcg tablet 50 mcg PO DAILY ropinirole 2 mg tablet 2 mg PO BEDTIME diltiazem HCl 120 mg capsule,extended release 24hr 120 mg PO DAILY insulin lispro [Humalog KwikPen Insulin] 100 unit/mL insulin pen See Rx Instructions .ROUTE .COMPLEX Rx Instructions: PER SLIDING SCALE rosuvastatin 10 mg tablet 10 mg PO DAILY ranolazine 500 mg tablet extended release 12 hr 500 mg PO BID fenofibrate nanocrystallized 145 mg tablet 145 mg PO DAILY multivitamin Tablet 1 tab PO DAILY aspirin 81 mg Tablet 81 mg PO DAILY Discharge Orders: Discharge ED (Routine); Ordered 03/05/23 Ordered By: Mick Schwartz Referrals: Roverto Arnold MD [Primary Care Provider] - Discharge Diet: Usual diet Discharge Activity: Increase activity as tolerated Patient Instructions: Abdominal Pain (ED) Activity Restrictions/Additional Instructions: Home and rest. Continue with routine diet. Continue with routine medications. Follow-up with primary care for further instruction and evaluation. Return to the emergency department for high fever greater than 100.4, severe abdominal pain, blood in the stool. Coding Level of Care Code ED Electron Microprobe Operator for Bev Rivera
--- NOTE | 2023-03-05 12:04 | CT_ITS ---
WS: [id number] CT ABDOMEN PELVIS TECHNIQUE: Contrast-enhanced CT of the abdomen and pelvis with coronal and sagittal reformatted image s. CLINICAL INFORMATION: abd pain COMPARISON: CT 2018 DLP: 360.[address] scans at [facility] use at least one of these dose optimization techniques: automated e xposure control; mA and/or kV adjustment per patient size (includes targeted exams where dose is matc hed to clinical indication); or iterative reconstruction. FINDINGS: Diffuse fatty infiltration liver. Mild hepatomegaly. Cholecystectomy. Normal spleen. Lung bases are w ell aerated.Normal GE junction. Normal portal vein and splenic vein. Splenic artery calcifications. N ormal spleen. Adrenal glands are normal. Normal renal parenchymal enhancement. No hydronephrosis. Tiny bilateral renal cysts. Atrophic uterus. A few sigmoid diverticuli. No evidence of acute divertic ulitis. No evidence of high-grade small or large bowel obstruction. Tiny fat-containing umbilical her raheem. Aneurysmal infrarenal abdominal aorta with dense calcification. This measures approximately 2.4 x 2.5 cm AP by transverse. No abdominal or pelvic lymphadenopathy. CT/CT abdomen pelvis w con* [id number] IMPRESSION: 1. Mild rectosigmoid constipation. 2. A few sigmoid diverticuli. No evidence of acute diverticulitis. 3. No evidence of high-grade small or large bowel obstruction. 4. Diffuse fatty infiltration liver with mild hepatomegaly. 5. Prior cholecystectomy. 6. Slightly aneurysmal abdominal aorta with dense calcification appears stable . 7. No other acute findings.
[2023-03-05 12:44] LABS: Basophils % 0.4 %; Eosinophils # 0.1 10^3/uL (0.0-0.8); Eosinophils % 2.2 %; Hematocrit 41.7 % (37.0-47.0); Hemoglobin 12.9 g/dL (11.5-15.3); Lymphocytes # 1.1 10^3/uL (0.8-4.8); Lymphocytes % 22.4 %; Mean Corpuscular HGB Conc 30.9 g/dL (30.0-36.0); Mean Corpuscular Hemoglobin 24.8 pg (28.0-34.0); Mean Corpuscular Volume 80.2 fl (81-99); Mean Platelet Volume 10.1 fL (7.4-10.4); Monocytes # 0.6 10^3/uL (0.2-0.9); Monocytes % 11.4 %; Neutrophils # 3.11 10^3/uL (1.8-7.7); Neutrophils % 63.2 %; Nucleated Red Blood Cells % 0 %; Platelet Count 183 10^3/cmm (130-400); Red Cell Distribution Width 21.7 % (12.1-15.1); White Blood Count 4.9 10^3/uL (4.0-10.0)
[2023-03-05 13:00] LABS: Alanine Aminotransferase 25 U/L (0-33); Albumin Level 3.8 g/dL (3.5-5.2); Alkaline Phosphatase 44 U/L (35-105); Anion Gap 13.7 (5-19); Aspartate Amino Transferase 38 U/L (0-32); Blood Urea Nitrogen 11 mg/dL (8-23); Calcium 8.9 mg/dL (8.5-10.5); Carbon Dioxide 27 mmol/L (22-29); Chloride 102 mmol/L (98-107); Globulin 2.5 g/dL (1.3-4.6); Glucose 166 mg/dL (65-115); Lipase 102 U/L (13-60); Osmolality Calculated 289 mOsm/kg (285-295); Potassium 4.7 mmol/L (3.5-5.1); Sodium 138 mmol/L (136-145); Total Bilirubin 0.3 mg/dL (0.15-1.2); Total Protein 6.3 g/dL (6.6-8.7); Triglycerides 293 mg/dL (0-150)
[2023-03-05 13:11] VITALS: BP 119/66; PULSE 83; RESP 16; O2SAT 97
[2023-03-05 13:22] LABS: Add Urine Microscopic? NO; Charge for UA Resulting for Rev
[2023-03-05 13:30] LABS: Bilirubin Urine Neg (Negative); Blood Urine Neg (Negative); Glucose Urine UA 4+ (Normal); Ketones Urine Negative (Negative); Leukocyte Esterase Urine Negative (Negative); Nitrate Urine Negative (Negative); Protein Urine Neg (Negative); Urine Appearance Clear (CLEAR); Urine Color Yellow (Yellow); Urobilinogen Urine Norm (Negative); pH Urine 7 (5-7)
[2023-03-05] MEDS: iohexol 350 mg/mL 500 mL Btl (per mL) IV (13:51)
== END 2023-03-05 15:22 | disposition home or self-care (01) ==
PROVIDERS: Emergency Provider Nurse Practitioner Family; PCP Family Medicine
DX: R10.84 Generalized abdominal pain (principal); K59.01 Slow transit constipation; Z79.02 Long term (current) use of antithrombotics/antiplatelets; Z79.4 Long term (current) use of insulin; Z79.82 Long term (current) use of aspirin; I25.10 Atherosclerotic heart disease of native coronary artery without angina pectoris; I12.9 Hypertensive chronic kidney disease with stage 1 through stage 4 chronic kidney disease, or unspecified chronic kidney disease; E11.22 Type 2 diabetes mellitus with diabetic chronic kidney disease; N18.2 Chronic kidney disease, stage 2 (mild); E78.5 Hyperlipidemia, unspecified; Z95.1 Presence of aortocoronary bypass graft
CPT/HCPCS: 74177; 80053; 81003; 83690; 84478; 85025; 99285; Q9967

== ENCOUNTER 2023-03-07 18:50 | Emergency (ER) | payer MEDICARE, MEDICAID, SELFPAY ==
[2023-03-07] VITALS (8 sets, daily range): BP systolic 131–167; BP diastolic 63–90; PULSE 71–90; RESP 15–22; TEMP 36.7; O2SAT 95–98; BMI 21.5
--- NOTE | 2023-03-07 19:04 | ECG_ITS ---
[facility] Test Date: 2023-03-07 Pat Name: Yadira Cruz Department: Room: Gender: Female [place]: : 1945 Requested By: Lauro Bolden Order Number: [id number] Jeanine MD: Moris Gee M.D. Measurements Intervals [place] Rate: 84 P: 0 MI: 0 QRS: 30 QRSD: 98 T: 94 QT: 386 QTc: 459 Interpretive Statements Sinus rhythm with frequent supraventricular and occasional ventricular ectopics INDETERMINATE AXIS NONSPECIFIC T-WAVE ABNORMALITY Compared to ECG 08/03/2021 11:30:58 Ventricular premature complex(es) now present Aberrant conduction of supraventricular beat(s) now present Indeterminate axis now present T-wave abnormality now present Sinus rhythm no longer present Myocardial infarct finding no longer present Electronically Signed On 03-07-2023 21:16:00 CDT by Moris Gee M.D. [email or web address]
--- NOTE | 2023-03-07 19:09 | XRR_ITS ---
PROCEDURE INFORMATION: Exam: XR Chest Exam date and time: 03/07/2023 7:12 PM Age: 77 years old Clinical indication: Cough; Additional info: Palpitations TECHNIQUE: Imaging protocol: Radiologic exam of the chest. Views: 1 view. COMPARISON: CR (CHEST, ) 08/03/2021 12:10 PM FINDINGS: Lungs: Minimal atelectasis or scarring at left lung base. Pleural spaces: Unremarkable. No pleural effusion. No pneumothorax. Heart/Mediastinum: Changes of coronary artery bypass are noted. Bones/joints: No acute findings. XR/XR chest 1V portable [id number] IMPRESSION: No acute findings.
--- NOTE | 2023-03-07 19:23 | ED_ITS ---
HPI - Arrhythmia/Palpitations General: Chief Complaint: Arrhythmia/Palpitations Stated Complaint: Heart Racing Time Seen by Provider: 03/07/23 19:06 Source: patient History of Present Illness: 77-year-old female with history of coronary disease, heart failure, and atrial fibrillation. She presents with shortness of breath, palpitations, and some chest discomfort today. No fever. Mild cough, no leg swelling. She reports being anxious as well. She wears 3 L of oxygen. MD complaint: palpitations Onset (ago): hour(s) Duration: intermittent Severity: moderate Arrhythmia history: atrial fibrillation Associated symptoms: Reports anxiety, cough, nausea, paresthesias and short of breath; Deny diaphoresis or vomiting Review of Systems Const: Denies: fever(s), chills or diaphoresis ENMT: Denies: throat pain Card: Reports: chest pain, palpitations and irregular heart rhythm; Denies: swelling of feet/ankles Resp: Reports: dyspnea and non-productive cough GI: Reports: nausea; Denies: abdominal pain or vomiting Psych: Reports: anxiety PFSH ED PFSH: Medical History Atherosclerotic heart disease of [place] coronary artery with unstable angina pectoris -s/p bypass x 4, stenting x 3 Benign essential hypertension with target blood pressure below 140/90 -amlodipine added for more optimal BP control Cholecystitis Chronic kidney disease (CKD) -on gentle IVF due to anticipated coronary angiogram -baseline Cr appears to be around 1.2-1.3 Coronary artery disease Diabetes Dyslipidemia associated with type 2 diabetes mellitus -continue statin GERD (gastroesophageal reflux disease) Hypothyroidism Kidney disease, chronic, stage II (GFR 60-89 ml/min) Peripheral neuropathy Recurrent UTI [place] spotted fever Sleep apnea Surgical History History of right-sided carotid endarterectomy Hx of cholecystectomy S/P CABG (coronary artery bypass graft) Patient reports 3 times Family History Father , AT AGE 74 Natural with unknown cause Mother , AT AGE 81 Heart attack Other Family history non-contributory Social History Smoking and tobacco status: former smoker Alcohol intake: never Substance/Drug Use: never Marital status: Current occupational status: retired Physical Exam Const: GENERAL APPEARANCE: anxious and frail appearing HENMT: COMMON NORMALS: normocephalic and atraumatic HEAD & SCALP: normocephalic and atraumatic Eye: COMMON NORMALS: Equal, round and reactive pupils present and EOMs intact bilaterally PUPIL: Yes Equal, round and reactive pupils present Chest: CHEST: Yes Symmetrical chest wall rise Resp: COMMON NORMALS: clear to auscultation bilaterally EFFORT & INSPECTION: Yes tachypneic and Yes labored AUSCULTATION: clear to auscultation bilaterally Cardio: COMMON NORMALS: regular rate RATE: regular rate RHYTHM: abnormal rhythm irregularly irregular GI: COMMON NORMALS: Normal to inspection, nondistended, normoactive bowel sounds present and Soft to palpation PALPATION: Yes Soft to palpation Extremity: COMMON NORMALS: no pedal edema Course Vital Signs: Vital signs: Vital Signs Temperature 98.1 F 03/07/23 19:03 Pulse Rate 71 03/07/23 21:47 Respiratory Rate 17 03/07/23 21:47 Blood Pressure 141/75 03/07/23 21:47 Pulse Oximetry 98 03/07/23 21:47 Oxygen Delivery Me thod Room Air 03/07/23 19:03 MDM - Arrhythmia/Palpitations Medical Decision Making Patient's symptoms are essentially resolved after 0.5 mg of Ativan. She is no longer having palpitations or chest discomfort. Breathing is better. CBC is essentially nonremarkable. BMP is not remarkable. Creatinine is 1.2 and is at baseline. Her first troponin is 22 which is near her normal baseline. BNP is only 431. Chest x-ray is negative. Patient and family were given the oppor tunity to wait on second troponin, but with resolution of her symptoms with Ativan, they wish to go home. I believe this is reasonable. She will be allowed discharge. Because of her improvement in shortness of breath after this episode with benzodiazepines, she will be placed on a small dose of Xanax to take only when she has these episodes at home. Lab Data 03/07/23 19:20 03/07/23 19:20 Radiology Impressions Chest X-Ray 03/07/23 19:09 IMPRESSION: No acute findings. Laboratory Results WBC 6.9 10^3/uL (4.0-10.0) 03/07/23 19:20 RBC 6.20 10^6/uL (4.1-5.3) H 03/07/23 19:20 Hgb 15.7 g/dL (11.5-15.3) H 03/07/23 19:20 Hct 48.2 % (37.0-47.0) H 03/07/23 19:20 MCV 77.7 fl (81-99) L 03/07/23 19:20 MCH 25.3 pg (28.0-34.0) L 03/07/23 19:20 MCHC 32.6 g/dL (30.0-36.0) 03/07/23 19:20 RDW 22.1 % (12.1-15.1) H 03/07/23 19:20 Plt Count 232 10^3/cmm (130-400) 03/07/23 19:20 MPV 10.2 fL (7.4-10.4) 03/07/23 19:20 Neut % (Auto) 65.7 % 03/07/23 19:20 Lymph % (Auto) 23.3 % 03/07/23 19:20 [place] % (Auto) 10.1 % 03/07/23 19:20 Eos % (Auto) 0.4 % 03/07/23 19:20 Baso % (Auto) 0.4 % 03/07/23 19:20 Neut # (Auto) 4.54 10^3/uL (1.8-7.7) 03/07/23 19:20 Lymph # (Auto) 1.6 10^3/uL (0.8-4.8) 03/07/23 19:20 [place] # (Auto) 0.7 10^3/uL (0.2-0.9) 03/07/23 19:20 Eos # (Auto) 0.0 10^3/uL (0.0-0.8) 03/07/23 19:20 Baso # (Auto) 0.0 10^3/uL (0.0-0.1) 03/07/23 19:20 Nucleated RBC % (auto) 0 % 03/07/23 19: Nucleated RBCs # 0.0 /100WBC 03/07/23 19:20 PT 12.70 SECONDS (12.1-14.9) 03/07/23 19:20 INR 0.93 (0.8-1.2) 03/07/23 19:20 APTT 25.1 SECONDS (23.9-36.7) 03/07/23 19:20 Sodium 140 mmol/L (136-145) 03/07/23 19:20 Potassium 3.9 mmol/L (3.5-5.1) 03/07/23 19:20 Chloride 100 mmol/L (98-107) 03/07/23 19:20 Carbon Dioxide 23 mmol/L (22-29) 03/07/23 19:20 Anion Gap 20.9 (5-19) H 03/07/23 19:20 BUN 15 mg/dL (8-23) 03/07/23 19:20 Creatinine 1.2 mg/dL (0.5-0.9) H 03/07/23 19:20 GFR Calculation Not Reportable 03/07/23 19:20 Glucose 115 mg/dL (65-115) 03/07/23 19:20 Calculated Osmolality 292 mOsm/kg (285-295) 03/07/23 19:20 Calcium 9.7 mg/dL (8.5-10.5) 03/07/23 19:20 Total Bilirubin 0.6 mg/dL (0.15-1.2) 03/07/23 19:20 AST 34 U/L (0-32) H 03/07/23 19:20 ALT 25 U/L (0-33) 03/07/23 19:20 Alkaline Phosphatase 52 U/L (35-105) 03/07/23 19:20 Troponin T Baseline 22 ng/L (0-10) H 03/07/23 19:20 NT-Pro-B Natriuret Pep 431 pg/mL (0-450) 03/07/23 19:20 Total Protein 7.7 g/dL (6.6-8.7) 03/07/23 19:20 Albumin 4.5 g/dL (3.5-5.2) 03/07/23 19:20 Globulin 3.2 g/dL (1.3-4.6) 03/07/23 19:20 Discharge Plan Discharge Patient Disposition: Home Clinical Impression: Atrial fibrillation, Palpitations Condition: Stable Prescriptions: New alprazolam 0.5 mg tablet 0.5 mg PO BID PRN (Reason: anxiety) Qty: 14 0RF No Action methenamine hippurate 1 gram tablet 1 g PO BID Qty: 60 12RF Rx Instructions: Take 1000 mg of vitamin C with each dose of methenamine Levemir Flexpen 100 unit/mL (3 mL) Insulin Pen 40 unit SUBCUT BID pantoprazole 40 mg Tablet,Delayed Release (Dr/Ec) 40 mg PO DAILY furosemide 20 mg Tablet 20 mg PO DAILY PRN (Reason: Edema) albuterol 90 mcg/actuation Aerosol 90 mcg INHALATION Q6H PRN (Reason: Shortness Of Breath) metoprolol tartrate 25 mg Tablet 12.5 mg PO BID isosorbide mononitrate 30 mg tablet extended release 24 hr See Rx Instructions .ROUTE .COMPLEX Rx Instructions: 60 mg orally in the morning/ 30 mg orally in the evening potassium chloride 10 mEq tablet extended release 10 meq PO DAILY PRN (Reason: with lasix) clopidogrel 75 mg tablet 75 mg PO DAILY levothyroxine 50 mcg tablet 50 mcg PO DAILY ropinirole 2 mg tablet 2 mg PO BEDTIME diltiazem HCl 120 mg capsule,extended release 24hr 120 mg PO DAILY insulin lispro [Humalog KwikPen Insulin] 100 unit/mL insulin pen See Rx Instructions .ROUTE .COMPLEX Rx Instructions: PER SLIDING SCALE rosuvastatin 10 mg tablet 10 mg PO DAILY ranolazine 500 mg tablet extended release 12 hr 500 mg PO BID fenofibrate nanocrystallized 145 mg tablet 145 mg PO DAILY multivitamin Tablet 1 tab PO DAILY aspirin 81 mg Tablet 81 mg PO DAILY Discharge Orders: Discharge ED (Routine); Ordered 03/07/23 Ordered By: Lauro Harper Referrals: Roverto Arnold MD [Primary Care Provider] - 1-3 days Patient Instructions: A-fib (Atrial Fibrillation) (ED), Anxiety (ED) Activity Restrictions/Additional Instructions: Return for worsening shortness of breath, chest discomfort, palpitations or racing heartbeat, any other concerning symptoms Coding Level of Care Code ED Supervisor Case Loading for Bev Rivera
[2023-03-07] MEDS: LORazepam 2 mg/mL INJ 1 mL 0.5 MG IVP (19:32)
[2023-03-07 19:49] LABS: Basophils % 0.4 %; Eosinophils % 0.4 %; Hematocrit 48.2 % (37.0-47.0); Hemoglobin 15.7 g/dL (11.5-15.3); Lymphocytes # 1.6 10^3/uL (0.8-4.8); Lymphocytes % 23.3 %; Mean Corpuscular HGB Conc 32.6 g/dL (30.0-36.0); Mean Corpuscular Hemoglobin 25.3 pg (28.0-34.0); Mean Corpuscular Volume 77.7 fl (81-99); Mean Platelet Volume 10.2 fL (7.4-10.4); Monocytes # 0.7 10^3/uL (0.2-0.9); Monocytes % 10.1 %; Neutrophils # 4.54 10^3/uL (1.8-7.7); Neutrophils % 65.7 %; Nucleated Red Blood Cells % 0 %; Platelet Count 232 10^3/cmm (130-400); Red Cell Distribution Width 22.1 % (12.1-15.1); White Blood Count 6.9 10^3/uL (4.0-10.0)
[2023-03-07 19:57] LABS: INR 0.93 (0.8-1.2)
[2023-03-07 19:58] LABS: Partial Thromboplastin Time 25.1 SECONDS (23.9-36.7)
[2023-03-07 20:06] LABS: Troponin(5th) Baseline 22 ng/L (0-10)
[2023-03-07 20:16] LABS: Alanine Aminotransferase 25 U/L (0-33); Albumin Level 4.5 g/dL (3.5-5.2); Alkaline Phosphatase 52 U/L (35-105); Anion Gap 20.9 (5-19); Aspartate Amino Transferase 34 U/L (0-32); Blood Urea Nitrogen 15 mg/dL (8-23); Calcium 9.7 mg/dL (8.5-10.5); Carbon Dioxide 23 mmol/L (22-29); Chloride 100 mmol/L (98-107); Globulin 3.2 g/dL (1.3-4.6); Glucose 115 mg/dL (65-115); NT Pro B Type Natriuretic Pept 431 pg/mL (0-450); Osmolality Calculated 292 mOsm/kg (285-295); Potassium 3.9 mmol/L (3.5-5.1); Sodium 140 mmol/L (136-145); Total Bilirubin 0.6 mg/dL (0.15-1.2); Total Protein 7.7 g/dL (6.6-8.7)
== END 2023-03-07 21:53 | disposition home or self-care (01) ==
PROVIDERS: Emergency Provider Emergency Medicine; PCP Family Medicine
DX: I48.91 Unspecified atrial fibrillation (principal); R00.2 Palpitations; Z79.82 Long term (current) use of aspirin; Z79.02 Long term (current) use of antithrombotics/antiplatelets; Z79.4 Long term (current) use of insulin; I25.10 Atherosclerotic heart disease of native coronary artery without angina pectoris; I12.9 Hypertensive chronic kidney disease with stage 1 through stage 4 chronic kidney disease, or unspecified chronic kidney disease; E11.22 Type 2 diabetes mellitus with diabetic chronic kidney disease; E78.5 Hyperlipidemia, unspecified; N18.2 Chronic kidney disease, stage 2 (mild); Z95.1 Presence of aortocoronary bypass graft; Z87.891 Personal history of nicotine dependence
CPT/HCPCS: 71045; 80053; 83880; 84484; 85025; 85610; 85730; 93005; 96374; 99285; J2060

== ENCOUNTER 2023-03-24 11:01 | Emergency (ER) | payer MEDICARE, MEDICAID, SELFPAY ==
[2023-03-24 11:04] VITALS: BP 128/63; PULSE 91; RESP 16; TEMP 36.5; O2SAT 86; BMI 21.9
[2023-03-24 13:40] VITALS: BP 146/59; PULSE 90; RESP 16; O2SAT 99
--- NOTE | 2023-03-24 13:41 | W.ED.GIBLEED ---
HPI - GI Bleed General: Chief complaint: GI Bleed Stated complaint: blood in stool Time Seen by Provider: 03/24/23 13:07 Source: patient and family Mode of arrival: ambulatory Limitations: no limitations History of Present Illness: Patient presented to the emergency department because she was concerned about having bright red blood in her stool this morning. She apparently has a longstanding history of constipation and hard stools and straining at stools. Today she had a hard stool with straining and then noted some bright red blood on the stool and on the paper after stooling. She states that she has no associated abdominal pain. She states that she does take Plavix and as well as aspirin because of coronary artery disease. She denies any other bleeding diathesis. Not had any abdominal surgeries. She has a colonoscopy scheduled for later this year but has no known history of other colon pathology. She denies any fevers or chills. States she has been eating and drinking normally. She does not have a regular bowel regimen. She does not take any opiates. She does have a history of hypothyroidism. Had no black tarry stools. She does not feel lightheaded dizzy etc. MD complaint: blood on toilet paper and blood streaked stool Associated symptoms: Reports no associated symptoms and easy bruising; Denies abdominal pain, chills, fever(s), headache(s), nausea, rash or vomiting Review of Systems Const: Denies: fever(s) or chills ENMT: Denies: odynophagia, nasal discharge, nasal congestion or nasal obstruction Card: Denies: chest pain, palpitations, irregular heart rhythm, dyspnea on exertion or orthopnea Resp: Denies: dyspnea, productive cough or non-productive cough GI: Reports: rectal pain and hematochezia; Denies: abdominal pain, nausea, vomiting, hematemesis, heartburn, fecal incontinence or melena : Denies: flank pain, difficulty voiding, dysuria or urinary frequency Skin/Breast: Denies: rash Neuro: Denies: headache(s), numbness in extremities or weakness in extremities Endo: Denies: polyuria, polydipsia or tired all the time Mohit/Lymph: Reports: easy bruising [facility] ED PFSH: Medical History Atherosclerotic heart disease of [place] coronary artery with unstable angina pectoris -s/p bypass x 4, stenting x 3 Benign essential hypertension with target blood pressure below 140/90 -amlodipine added for more optimal BP control Cholecystitis Chronic kidney disease (CKD) -on gentle IVF due to anticipated coronary angiogram -baseline Cr appears to be around 1.2-1.3 Coronary artery disease Diabetes Dyslipidemia associated with type 2 diabetes mellitus -continue statin GERD (gastroesophageal reflux disease) Hypothyroidism Kidney disease, chronic, stage II (GFR 60-89 ml/min) Peripheral neuropathy Recurrent UTI [place] spotted fever Sleep apnea Surgical History History of right-sided carotid endarterectomy Hx of cholecystectomy S/P CABG (coronary artery bypass graft) Patient reports 3 times Family History Father , AT AGE 74 Natural with unknown cause Mother , AT AGE 81 Heart attack Other Family history non-contributory Social History Smoking and tobacco status: former smoker Alcohol intake: never Substance/Drug Use: never Marital status: Current occupational status: retired Physical Exam Narrative: EXAM NARRATIVE: She is very interactive and appears to be in no acute distress. Answers questions in a goal-directed fashion. Const: COMMON NORMALS: no acute distress, average body habitus, patient oriented x3 and alert GENERAL APPEARANCE: cooperative and comfortable ORIENTATION/CONSCIOUSNESS: Yes awake HENMT: COMMON NORMALS: normocephalic, Normal nasal mucous membranes and turbinates present, moist oral mucous membranes and oropharynx normal HEAD & SCALP: normocephalic NOSE: Normal nasal mucous membranes and turbinates present Eye: COMMON NORMALS: Equal, round and reactive pupils present, EOMs intact bilaterally, conjunctivae normal and no scleral icterus CONJUNCTIVA: Yes conjunctivae normal PUPIL: Yes Equal, round and reactive pupils present Neck/C-Spine: COMMON NORMALS: full ROM, no JVD and No carotid bruits Chest: COMMONS NORMALS: normal inspection of the chest Resp: COMMON NORMALS: normal respiratory effort, No retractions, No use of accessory muscles and clear to auscultation bilaterally AUSCULTATION: clear to auscultation bilaterally Cardio: COMMON NORMALS: no JVD, regular rate, regular rhythm, No murmurs present (Cardio) and Peripheral pulses 2+ throughout RATE: regular rate RHYTHM: regular rhythm PERIPHERAL PULSES: Peripheral pulses 2+ throughout GI: COMMON NORMALS: Normal to inspection, nondistended, normoactive bowel sounds present, Soft to palpation, non-tender and no masses PALPATION: Yes Soft to palpation RECTAL EXAM: visual inspection normal, normal sphincter tone and heme positive stool OTHER: Rectal examination reveals a normal-appearing external examination. No obvious fissures or external hemorrhoids. Digital examination reveals no masses within the examining finger she does have some tenderness along the internal mucosa. No active bleeding. Finger revealed no stool no bright red blood. Mucus was guaiac positive. : COMMON NORMALS: Yes no CVA tenderness BLADDER/KIDNEY EXAM: Yes no CVA tenderness Back/Pelvis: COMMON NORMALS: no CVA tenderness, thoracic and lumbar spine normal to inspection, no thoracic nor lumbar tenderness and thoraco-lumbar ROM normal Extremity: COMMON NORMALS: normal to inspection, full ROM, no calf tenderness and no pedal edema Neuro: COMMON NORMALS: patient oriented x3, moves all extremities and no sensory deficits noted SENSORIUM/ORIENTATION: Yes alert Psych: COMMON NORMALS: mental status grossly normal Skin: COMMON NORMALS: no rashes or lesions noted, turgor normal, no jaundice and no petechiae GENERAL SKIN EXAM: no rashes or lesions noted and turgor normal Course Reevaluation(s): Reevaluation #1: Patient remained stable and cooperative and in no acute distress. No new or focal findings on examination. I have shared current findings with patient as well as her daughter who is very supportive and knowledgeable. Batool the lack of any findings today on her clinical evaluation that would suggest a serious medical problem but we also discussed return precautions and other measures to adopt at home to help reduce recurrence of her symptoms. She and her daughter voiced understanding and were appreciative of care. Time: 14:36 Vital Signs: Vital signs: Vital Signs Temperature 97.7 F 03/24/23 11:04 Pulse Rate 59 L 03/24/23 14:00 Respiratory Rate 16 03/24/23 13:40 Blood Pressure 149/83 03/24/23 14:00 Pulse Oximetry 99 03/24/23 14:00 Oxygen Delivery Me thod Room Air 03/24/23 14:00 MDM - GI Bleed Medical Decision Making This patient presented to our emergency department because of concerns about small amount of bright red blood on paper and in stool today after straining and hard stool. Longstanding history of recurrent hard stools and straining with stools. Also takes Plavix because of coronary disease and prior stents. No other history of bleeding issues and no other constitutional symptoms. Clinical examination reveals her to be anxious but quite alert and cooperative. No focal findings on examination of her abdomen etc. Her rectal examination did not reveal any obvious fissuring, external hemorrhoids, other masses on digital rectal exam. CBC was very reassuring and clinical findings such as pulse oximetry, blood pressure etc. were reassuring. It is unlikely that this represents a significant source of lower gastrointestinal bleeding such as tumor etc. at this time. She had a very limited bleeding and is not having any ongoing bleeding and no associated abdominal pain. Given her history is likely related to her hard stools and straining. We did however review that there could be a possibility of other pathology albeit a low likelihood. She has his colonoscopy scheduled for later this year. We also discussed return precautions in detail with the patient and her daughter. Daughter is very knowledgeable and supportive. We will place her on a regimen of lactulose, increase fluid intake and return precautions again were reviewed in detail. Differential Diagnosis Likely hematochezia Lab Data I reviewed the patient's lab results. 03/24/23 13:55 Laboratory Results WBC 5.7 10^3/uL (4.0-10.0) 03/24/23 13:55 RBC 5.26 10^6/uL (4.1-5.3) 03/24/23 13:55 Hgb 13.2 g/dL (11.5-15.3) 03/24/23 13:55 Hct 42.5 % (37.0-47.0) 03/24/23 13:55 MCV 80.8 fl (81-99) L 03/24/23 13:55 MCH 25.1 pg (28.0-34.0) L 03/24/23 13:55 MCHC 31.1 g/dL (30.0-36.0) 03/24/23 13:55 RDW 18.6 % (12.1-15.1) H 03/24/23 13:55 Plt Count 176 10^3/cmm (130-400) 03/24/23 13:55 MPV 10.2 fL (7.4-10.4) 03/24/23 13:55 Neut % (Auto) 65.1 % 03/24/23 13:55 Lymph % (Auto) 21.1 % 03/24/23 13:55 [place] % (Auto) 10.4 % 03/24/23 13:55 Eos % (Auto) 2.5 % 03/24/23 13:55 Baso % (Auto) 0.5 % 03/24/23 13:55 Neut # (Auto) 3.72 10^3/uL (1.8-7.7) 03/24/23 13:55 Lymph # (Auto) 1.2 10^3/uL (0.8-4.8) 03/24/23 13:55 [place] # (Auto) 0.6 10^3/uL (0.2-0.9) 03/24/23 13:55 Eos # (Auto) 0.1 10^3/uL (0.0-0.8) 03/24/23 13:55 Baso # (Auto) 0.0 10^3/uL (0.0-0.1) 03/24/23 13:55 Nucleated RBC % (auto) 0 % 03/24/23 13:55 Nucleated RBCs # 0.0 /100WBC 03/24/23 13:55 Discharge Plan Discharge Patient Disposition: Home Clinical Impression: Hematochezia Condition: Stable Prescriptions: No Action methenamine hippurate 1 gram tablet 1 g PO BID Qty: 60 12RF Rx Instructions: Take 1000 mg of vitamin C with each dose of methenamine Levemir Flexpen 100 unit/mL (3 mL) Insulin Pen 40 unit SUBCUT BID pantoprazole 40 mg Tablet,Delayed Release (Dr/Ec) 40 mg PO DAILY furosemide 20 mg Tablet 20 mg PO DAILY PRN (Reason: Edema) albuterol 90 mcg/actuation Aerosol 90 mcg INHALATION Q6H PRN (Reason: Shortness Of Breath) metoprolol tartrate 25 mg Tablet 12.5 mg PO BID isosorbide mononitrate 30 mg tablet extended release 24 hr See Rx Instructions .ROUTE .COMPLEX Rx Instructions: 60 mg orally in the morning/ 30 mg orally in the evening potassium chloride 10 mEq tablet extended release 10 meq PO DAILY PRN (Reason: with lasix) clopidogrel 75 mg tablet 75 mg PO DAILY levothyroxine 50 mcg tablet 50 mcg PO DAILY ropinirole 2 mg tablet 2 mg PO BEDTIME diltiazem HCl 120 mg capsule,extended release 24hr 120 mg PO DAILY insulin lispro [Humalog KwikPen Insulin] 100 unit/mL insulin pen See Rx Instructions .ROUTE .COMPLEX Rx Instructions: PER SLIDING SCALE rosuvastatin 10 mg tablet 10 mg PO DAILY ranolazine 500 mg tablet extended release 12 hr 500 mg PO BID fenofibrate nanocrystallized 145 mg tablet 145 mg PO DAILY multivitamin Tablet 1 tab PO DAILY aspirin 81 mg Tablet 81 mg PO DAILY alprazolam 0.5 mg tablet 0.5 mg PO BID PRN (Reason: anxiety) Qty: 14 0RF Discharge Orders: Discharge ED (Routine); Ordered 03/24/23 Ordered By: Jamil Mohamud Referrals: Roverto Arnold MD [Primary Care Provider] - 2 weeks Discharge Diet: Usual diet Discharge Activity: Increase activity as tolerated Patient Instructions: Opioid Safety, Pain Management Activity Restrictions/Additional Instructions: As we discussed while you are in the emergency department your condition at this point time does not likely represent a serious problem. Because of your straining at stools and hard stools combined with your use of your blood thinning medication has likely irritated a inside hemorrhoid or a small vessel within your colon. We recommend that you start taking 1 packet of MiraLAX daily which is available [id number]. We also recommend that if you are drinking milk products such as milkshakes ice cream that you should take a Lactaid after you ingest milk products to help reduce your gas. If you have increased bleeding in your stools, clotting, abdominal pain, lightheadedness or other concerning symptoms return to this or the nearest emergency department immediately. Continue all your usual medications as prescribed. Make sure you drink at least 64 ounces of water daily. Coding Level of Care Code ED [employer] for Bev Rivera
[2023-03-24 14:00] VITALS: BP 149/83; PULSE 59; O2SAT 99
[2023-03-24 14:07] LABS: Basophils % 0.5 %; Eosinophils # 0.1 10^3/uL (0.0-0.8); Eosinophils % 2.5 %; Hematocrit 42.5 % (37.0-47.0); Hemoglobin 13.2 g/dL (11.5-15.3); Lymphocytes # 1.2 10^3/uL (0.8-4.8); Lymphocytes % 21.1 %; Mean Corpuscular HGB Conc 31.1 g/dL (30.0-36.0); Mean Corpuscular Hemoglobin 25.1 pg (28.0-34.0); Mean Corpuscular Volume 80.8 fl (81-99); Mean Platelet Volume 10.2 fL (7.4-10.4); Monocytes # 0.6 10^3/uL (0.2-0.9); Monocytes % 10.4 %; Neutrophils # 3.72 10^3/uL (1.8-7.7); Neutrophils % 65.1 %; Nucleated Red Blood Cells % 0 %; Platelet Count 176 10^3/cmm (130-400); Red Blood Count 5.26 10^6/uL (4.1-5.3); Red Cell Distribution Width 18.6 % (12.1-15.1); White Blood Count 5.7 10^3/uL (4.0-10.0)
[2023-03-24 14:46] VITALS: BP 131/58; PULSE 62; O2SAT 99
== END 2023-03-24 14:48 | disposition home or self-care (01) ==
PROVIDERS: Emergency Provider Emergency Medicine; PCP Family Medicine
DX: K92.1 Melena (principal); Z79.02 Long term (current) use of antithrombotics/antiplatelets; Z79.4 Long term (current) use of insulin; Z79.82 Long term (current) use of aspirin; Z87.891 Personal history of nicotine dependence; Z95.1 Presence of aortocoronary bypass graft; I25.10 Atherosclerotic heart disease of native coronary artery without angina pectoris; E11.22 Type 2 diabetes mellitus with diabetic chronic kidney disease; I12.9 Hypertensive chronic kidney disease with stage 1 through stage 4 chronic kidney disease, or unspecified chronic kidney disease; E78.5 Hyperlipidemia, unspecified; N18.2 Chronic kidney disease, stage 2 (mild)
CPT/HCPCS: 36415; 85025; 99283

== ENCOUNTER 2023-09-17 11:23 | Emergency (ER) | payer MEDICARE, MEDICAID, SELFPAY ==
--- NOTE | 2023-09-17 11:28 | XRR_ITS ---
PROCEDURE INFORMATION: Exam: XR Left Hip Exam date and time: 09/17/2023 1:16 PM Age: 77 years old Clinical indication: Left hip; Patient HX: Lt hip pain post fall TECHNIQUE: Imaging protocol: Radiologic exam of the left hip. Views: 2 or 3 views hip with pelvis when performed. COMPARISON: CT abdomen pelvis w con* [id number] 03/05/2023 1:46 PM FINDINGS: Bones/joints: Unremarkable. No acute fracture. Soft tissues: Unremarkable. XR/XR hip LT 2-3V wo/w pel* [id number] IMPRESSION: No acute findings.
[2023-09-17 12:06] VITALS: BP 151/71; PULSE 86; RESP 18; TEMP 36.6; O2SAT 95
--- NOTE | 2023-09-17 13:26 | ED_ITS ---
HPI - Extremity Problem General: Chief complaint: Extremity Problem,Nontraumatic Stated complaint: reported fall 2 days ago left hip hurting Time Seen by Provider: 09/17/23 13:26 History of Present Illness: 77-year-old female presents emergency department complaints of left hip pain. She states she had an accidental misstep and fall 2 days ago and fell on her left hip. She states she is able to ambulate after her fall she denies head neck or back pain. She states she does have a sore left hip. She states she takes aspirin and Plavix as well as Cardizem for her atrial fibrillation. She is an insulin-dependent diabetic. She denies numbness or tingling to the extremity. She denies decreased range of motion. She states her current pain is a 3 out of 10 and aching type pain. She states that nothing seems to make it better and nothing seems to make it worse. Review of Systems General: Reports: 10 or more systems reviewed and unremarkable except in HPI and below Musc: Reports: extremity pain and joint pain PFSH ED PFSH: Medical History Atherosclerotic heart disease of [place] coronary artery with unstable angina pectoris -s/p bypass x 4, stenting x 3 Benign essential hypertension with target blood pressure below 140/90 -amlodipine added for more optimal BP control Cholecystitis Chronic kidney disease (CKD) -on gentle IVF due to anticipated coronary angiogram -baseline Cr appears to be around 1.2-1.3 Coronary artery disease Diabetes Dyslipidemia associated with type 2 diabetes mellitus -continue statin GERD (gastroesophageal reflux disease) Hypothyroidism Kidney disease, chronic, stage II (GFR 60-89 ml/min) Peripheral neuropathy Recurrent UTI [place] spotted fever Sleep apnea Surgical History History of right-sided carotid endarterectomy Hx of cholecystectomy S/P CABG (coronary artery bypass graft) Patient reports 3 times Family History Father , AT AGE 74 Natural with unknown cause Mother , AT AGE 81 Heart attack Other Family history non-contributory Social History Smoking and tobacco/nicotine status: former use of tobacco/nicotine Alcohol intake: never Substance/Drug Use: never Marital status: Current occupational status: retired Physical Exam Narrative: EXAM NARRATIVE: Constitutional: the patient appears well nourished and with normal development. Vital signs reviewed as documented. No acute distress, HENMT: Normocephalic, atraumatic. Extermal ears with normal appearance without drainage. Nose without drainage, normal appearance. Mucus membranes moist. Neck is supple, No jugular venous distension, trachea is midline, no appreciable carotid bruits. No lymphadenopathy. No meningeal signs. Flexion, extension and lateral rotation is without pain. Eyes: Pupils are equal, round, reactive to light and accommodation. No scleral icterus. Extra-ocular movement are intact. Thorax is symmetrical and with equal rise and fall with respirations. Resp: Lungs are clear to auscultation. No wheezes, rales, crackles or ronchi at present. Cardio: Regular rate and rhythm. Positive S1, S2. No appreciable murmurs, rubs or gallops. GI: Abdominal exam reveals normal bowel sounds to all quadrants. No organomegaly. No obvious palpable masses noted. No hepatomegally appreciated. Soft, nontender to palpation. Extremity: Extremities are non-edematous and both femoral and pedal pulses are 2+ and equal bilaterally. Moves all extremities well, sensation in all extremities. Neuro: Alert and oriented x4, person, place, time and situation. Cranial nerves II through XII are grossly intact, there is no focal neurological deficits that I can appreciate at present. Motor strength in the upper and lower extremities are equal and bilateral 5/5. Psych: Cooperative, calm, normal thought process, appropriate judgment. Skin: No lesions, rashes. No gross abnormalities noted. Back: Symmetrical, no obvious deformity, No CVA tenderness Course Vital Signs: Vital signs: Vital Signs Temperature 97.9 F 09/17/23 12:06 Pulse Rate 86 09/17/23 12:06 Respiratory Rate 18 09/17/23 12:06 Blood Pressure 151/71 09/17/23 12:06 Pulse Oximetry 95 09/17/23 12:06 Oxygen Delivery Me thod Room Air 09/17/23 12:06 MDM - Extremity (Nontraumatic) Medical Decision Making Physical exam completed and documented, I will obtain a radiographic examination for evaluation. I suspect most likely that this is a exacerbation of osteoarthritis in addition to contusion of her left hip secondary to her fall. She has no neurological deficits and does not complain of a headache or neck or back pain. Although she is on Plavix and aspirin given the distance of her accidental fall and the duration of time until presentation and at the patient's request I will not obtain a CT scan of her head. Medical Records I reviewed the patient's medical records. Lab Data Radiology Impressions Hip/Pelvis X-Ray 09/17/23 11:28 IMPRESSION: No acute findings. All radiology interpretation(s) finalized by discharge Discharge Plan Discharge Patient Disposition: Home Clinical Impression: Contusion of hip, left, Osteoarthritis of left hip, Accidental fall Condition: Stable Prescriptions: No Action methenamine hippurate 1 gram tablet 1 g PO BID Qty: 60 12RF Rx Instructions: Take 1000 mg of vitamin C with each dose of methenamine Levemir Flexpen 100 unit/mL (3 mL) Insulin Pen 40 unit SUBCUT BID pantoprazole 40 mg Tablet,Delayed Release (Dr/Ec) 40 mg PO DAILY furosemide 20 mg Tablet 20 mg PO DAILY PRN (Reason: Edema) albuterol 90 mcg/actuation Aerosol 90 mcg INHALATION Q6H PRN (Reason: Shortness Of Breath) metoprolol tartrate 25 mg Tablet 12.5 mg PO BID isosorbide mononitrate 30 mg tablet extended release 24 hr See Rx Instructions .ROUTE .COMPLEX Rx Instructions: 60 mg orally in the morning/ 30 mg orally in the evening potassium chloride 10 mEq tablet extended release 10 meq PO DAILY PRN (Reason: with lasix) clopidogrel 75 mg tablet 75 mg PO DAILY levothyroxine 50 mcg tablet 50 mcg PO DAILY ropinirole 2 mg tablet 2 mg PO BEDTIME diltiazem HCl 120 mg capsule,extended release 24hr 120 mg PO DAILY insulin lispro [Humalog KwikPen Insulin] 100 unit/mL insulin pen See Rx Instructions .ROUTE .COMPLEX Rx Instructions: PER SLIDING SCALE rosuvastatin 10 mg tablet 10 mg PO DAILY ranolazine 500 mg tablet extended release 12 hr 500 mg PO BID fenofibrate nanocrystallized 145 mg tablet 145 mg PO DAILY multivitamin Tablet 1 tab PO DAILY aspirin 81 mg Tablet 81 mg PO DAILY alprazolam 0.5 mg tablet 0.5 mg PO BID PRN (Reason: anxiety) Qty: 14 0RF Discharge Orders: Discharge ED (Routine); Ordered 09/17/23 Ordered By: Jesus Manuel Uribe Referrals: Roverto Arnold MD [Primary Care Provider] - Discharge Diet: Advance as tolerated Discharge Activity: Resume usual activity Patient Instructions: Opioid Safety, Pain Management, RICE Therapy Activity Restrictions/Additional Instructions: Activity Restrictions/Additional Instructions: Thank you for choosing [facility] for your healthcare needs today. Please realize that you were seen in the Emergency Department and that we are providing you with an emergency medical screening exam and this may not be complete and all inclusive of all the testing and or medical work-up that you may need to determine your ailment or severity of your illness. It is very important that you follow-up as instructed with your Primary care provider or Specialist for additional evaluation and to discuss your medical treatment plan. You may return to the Emergency Department should you have concerns or if your condition changes or worsens in any way. Coding Level of Care Code ED [facility] for [facility] Rivera
== END 2023-09-17 14:58 | disposition home or self-care (01) ==
PROVIDERS: Emergency Provider Internal Medicine; PCP Family Medicine
DX: S70.02XA Contusion of left hip, initial encounter (principal); M16.12 Unilateral primary osteoarthritis, left hip; Z79.02 Long term (current) use of antithrombotics/antiplatelets; Z79.82 Long term (current) use of aspirin; Z79.4 Long term (current) use of insulin; W01.0XXA Fall on same level from slipping, tripping and stumbling without subsequent striking against object, initial encounter; I25.10 Atherosclerotic heart disease of native coronary artery without angina pectoris; E11.22 Type 2 diabetes mellitus with diabetic chronic kidney disease; I12.9 Hypertensive chronic kidney disease with stage 1 through stage 4 chronic kidney disease, or unspecified chronic kidney disease; N18.2 Chronic kidney disease, stage 2 (mild); E78.5 Hyperlipidemia, unspecified; E11.42 Type 2 diabetes mellitus with diabetic polyneuropathy; Z95.1 Presence of aortocoronary bypass graft; Z87.891 Personal history of nicotine dependence
CPT/HCPCS: 73502; 99283

== ENCOUNTER 2023-11-18 12:31 | Emergency (ER) | payer MEDICARE, MEDICAID, SELFPAY ==
[2023-11-18 12:32] VITALS: BP 170/76; PULSE 71; RESP 16; TEMP 36.4; O2SAT 96
--- NOTE | 2023-11-18 12:36 | ECG_ITS ---
[facility] Test Date: 2023-11-18 Pat Name: Yadira Cruz Department: Room: Gender: Female Lab Assistant: : 1945 Requested By: Tan Flores Order Number: [id number] Reading MD: Declan Johnson M.D. Measurements Intervals [place] Rate: 68 P: -6 KS: 151 QRS: 63 QRSD: 91 T: 134 QT: 380 QTc: 407 Interpretive Statements SINUS RHYTHM NONSPECIFIC ST & T-WAVE ABNORMALITY Compared to ECG 03/07/2023 19:04:43 Indeterminate axis no longer present T-wave abnormality still present Electronically Signed On 11-19-2023 6:49:00 CHILDREN'S AIDE by Declan Johnson M.D. [email or web address]
--- NOTE | 2023-11-18 12:36 | XR_ITS ---
WS: [id number] XR chest 1V portable [id number] REASON FOR EXAM: cp FINDINGS: The chest is unchanged compared to 03/07/2023. There are sternal sutures and the patient is status post coronary artery bypass surgery. Previous cor onary artery stents. Moderate tortuosity and ectasia of the thoracic aorta. Normal heart size. Calcified granulomas disease bilaterally. No acute/subacute pulmonary parenchymal abnormality or pleural abnormality. Mild thoracic scoliosis with mild degenerative spondylosis in the mid and lower thoracic spine. IMPRESSION: No acute chest abnormality.
[2023-11-18 12:59] LABS: Basophils % 0.3 %; Eosinophils # 0.1 10^3/uL (0.0-0.8); Eosinophils % 0.7 %; Hematocrit 46.8 % (36-47); Lymphocytes # 1.4 10^3/uL (0.8-4.8); Lymphocytes % 19.4 %; Mean Corpuscular HGB Conc 32.5 g/dL (30-55); Mean Corpuscular Volume 86.2 fl (85-98); Mean Platelet Volume 11.4 fL (7.4-10.4); Monocytes # 0.6 10^3/uL (0.2-0.9); Monocytes % 7.7 %; Neutrophils # 5.28 10^3/uL (1.8-7.7); Neutrophils % 71.6 %; Nucleated Red Blood Cells % 0 %; Platelet Count 231 10^3/cmm (157-399); Red Blood Count 5.43 10^6/uL (3.85-5.65); Red Cell Distribution Width 13.5 % (12.1-15.1); White Blood Count 7.37 10^3/uL (3.29-11.43)
--- NOTE | 2023-11-18 13:08 | ED_ITS ---
HPI - Chest Pain 2 General: Chief Complaint: Chest Pain Stated Complaint: tightness in chest,head pains Time Seen by Provider: 11/18/23 12:55 Source: patient Mode of arrival: ambulatory Limitations: no limitations History of Present Illness: 77-year-old female states she been havin g chest pain along with headaches over the last week. States it has been intermittent nature she does have a history anxiety she been extremely anxious states the pain is at her head over the sharp pains that for like electric no pain currently she denies any chest pain currently as well. She denies shortness of breath or fever. Associated symptoms: Deny abdominal pain, dyspnea, fever(s), nausea or vomiting Review of Systems 2 Const: Denies: fever(s), chills or change in appetite Eyes: Denies: blurry vision or eye discomfort ENMT: Denies: throat pain or dental pain Card: Reports: chest pain Resp: Denies: dyspnea GI: Denies: abdominal pain, nausea, vomiting or diarrhea Musc: Denies: neck pain or back pain Skin/Breast: Denies: rash Neuro: Reports: headache(s) PFSH ED 2 PFSH: Medical History Atherosclerotic heart disease of [place] coronary artery with unstable angina pectoris -s/p bypass x 4, stenting x 3 Benign essential hypertension with target blood pressure below 140/90 -amlodipine added for more optimal BP control Cholecystitis Chronic kidney disease (CKD) -on gentle IVF due to anticipated coronary angiogram -baseline Cr appears to be around 1.2-1.3 Coronary artery disease Diabetes Dyslipidemia associated with type 2 diabetes mellitus -continue statin GERD (gastroesophageal reflux disease) Hypothyroidism Kidney disease, chronic, stage II (GFR 60-89 ml/min) Peripheral neuropathy Recurrent UTI [place] spotted fever Sleep apnea Surgical History History of right-sided carotid endarterectomy Hx of cholecystectomy S/P CABG (coronary artery bypass graft) Patient reports 3 times Family History Father , AT AGE 74 Natural with unknown cause Mother , AT AGE 81 Heart attack Other Family history non-contributory Social History Smoking and tobacco/nicotine status: former use of tobacco/nicotine Alcohol intake: never Substance/Drug Use: never Marital status: Current occupational status: retired Physical Exam 2 Const: COMMON NORMALS: no acute distress, patient oriented x3 and healthy appearing HENMT: COMMON NORMALS: normocephalic and atraumatic HEAD & SCALP: n ormocephalic and atraumatic Neck/C-Spine: COMMON NORMALS: full ROM and supple Chest: COMMONS NORMALS: normal inspection of the chest and normal palpation of entire chest wall Resp: COMMON NORMALS: normal respiratory effort, No retractions, No use of accessory muscles and clear to auscultation bilaterally AUSCULTATION: clear to auscultation bilaterally Cardio: COMMON NORMALS: regular rate, regular rhythm and No murmurs present (Cardio) RATE: regular rate RHYTHM: regular rhythm Extremity: COMMON NORMALS: normal to inspection and full ROM Neuro: COMMON NORMALS: patient oriented x3, moves all extremities and no focal motor deficits Psych: COMMON NORMALS: mental status grossly normal, Normal thought process present and cooperative THOUGHT PROCESS: Normal thought process present Skin: COMMON NORMALS: no rashes or lesions noted and no wounds GENERAL SKIN EXAM: no rashes or lesions noted Course 2 Vital Signs: Vital signs: Vital Signs Temperature 97.5 F L 11/18/23 12:32 Pulse Rate 67 11/18/23 14:12 Respiratory Rate 19 H 11/18/23 13:42 Blood Pressure 168/92 11/18/23 13:42 Pulse Oximetry 92 11/18/23 14:12 Oxygen Delivery Me thod Room Air 11/18/23 12:32 MDM - Chest Pain Medical Decision Making Patient presents for chest pains atypical troponins here are negative patient is well-appearing here no signs of acute coronary syndrome she is stable for discharge she is follow-up with PCP return if worsening. Medical Records I reviewed the patient's medical records. Lab Data I reviewed the patient's lab results. 11/18/23 12:53 11/18/23 12:53 Laboratory Results WBC 7.37 10^3/uL (3.29-11.43) 11/18/23 12:53 RBC 5.43 10^6/uL (3.85-5.65) 11/18/23 12:53 Hgb 15.20 g/dL (11.27-16.99) 11/18/23 12:53 Hct 46.8 % (36-47) 11/18/23 12:53 MCV 86.2 fl (85-98) 11/18/23 12:53 MCH 28.0 pg (27-33) 11/18/23 12:53 MCHC 32.5 g/dL (30-55) 11/18/23 12:53 RDW 13.5 % (12.1-15.1) 11/18/23 12:53 Plt Count 231 10^3/cmm (157-399) 11/18/23 12:53 MPV 11.4 fL (7.4-10.4) H 11/18/23 12:53 Neut % (Auto) 71.6 % 11/18/23 12:53 Lymph % (Auto) 19.4 % 11/18/23 12:53 [place] % (Auto) 7.7 % 11/18/23 12:53 Eos % (Auto) 0.7 % 11/18/23 12:53 Baso % (Auto) 0.3 % 11/18/23 12:53 Neut # (Auto) 5.28 10^3/uL (1.8-7.7) 11/18/23 12:53 Lymph # (Auto) 1.4 10^3/uL (0.8-4.8) 11/18/23 12:53 [place] # (Auto) 0.6 10^3/uL (0.2-0.9) 11/18/23 12:53 Eos # (Auto) 0.1 10^3/uL (0.0-0.8) 11/18/23 12:53 Baso # (Auto) 0.0 10^3/uL (0.0-0.1) 11/18/23 12:53 Nucleated RBC % (auto) 0 % 11/18/23 12:53 Nucleated RBCs # 0.0 /100WBC 11/18/23 12:53 Sodium 142 mmol/L (136-145) 11/18/23 12:53 Potassium 3.6 mmol/L (3.5-5.1) 11/18/23 12:53 Chloride 103 mmol/L (98-107) 11/18/23 12:53 Carbon Dioxide 24 mmol/L (22-29) 11/18/23 12:53 Anion Gap 18.6 (5-19) 11/18/23 12:53 BUN 14 mg/dL (8-23) 11/18/23 12:53 Creatinine 1.3 mg/dL (0.5-0.9) H 11/18/23 12:53 GFR Calculation Not Reportable 11/18/23 12:53 Glucose 81 mg/dL (65-115) 11/18/23 12:53 Calculated Osmolality 294 mOsm/kg (285-295) 11/18/23 12:53 Calcium 9.7 mg/dL (8.5-10.5) 11/18/23 12:53 Total Bilirubin 0.5 mg/dL (0.15-1.2) 11/18/23 12:53 AST 21 U/L (0-32) 11/18/23 12:53 ALT 13 U/L (0-33) 11/18/23 12:53 Alkaline Phosphatase 41 U/L (35-105) 11/18/23 12:53 Troponin T Baseline 19 ng/L (0-10) H 11/18/23 12:53 Troponin T 120 Minute 17.13 ng/L (0-10) H 11/18/23 14:01 Delta Troponin T -1.87 ABS# (0-10) L 11/18/23 14:01 Total Protein 7.3 g/dL (6.6-8.7) 11/18/23 12:53 Albumin 4.4 g/dL (3.5-5.2) 11/18/23 12:53 Globulin 2.9 g/dL (1.3-4.6) 11/18/23 12:53 Lipase 68 U/L (13-60) H 11/18/23 12:53 All radiology interpretation(s) finalized by discharge EKG Data EKG 1: I personally reviewed and interpreted this EKG as follows: EKG interpretation date: 11/18/23 EKG interpretation time: 12:37 Interpretation: nsr hr [address] or t wave abnormalities qrs 91 qtc 398 Discharge Plan Discharge Patient Disposition: Home Clinical Impression: Atypical chest pain Condition: Stable Prescriptions: No Action Levemir Flexpen 100 unit/mL (3 mL) Insulin Pen 25 unit SUBCUT DAILY PRN (Reason: Hypoglycemia) pantoprazole 40 mg Tablet,Delayed Release (Dr/Ec) 40 mg PO DAILY furosemide 20 mg Tablet 20 mg PO DAILY PRN (Reason: Edema) isosorbide mononitrate 30 mg tablet extended release 24 hr See Rx Instructions .ROUTE .COMPLEX Rx Instructions: 60 mg orally in the morning/ 30 mg orally in the evening potassium chloride 10 mEq tablet extended release 10 meq PO DAILY PRN (Reason: with lasix) clopidogrel 75 mg tablet 75 mg PO DAILY levothyroxine 50 mcg tablet 50 mcg PO DAILY ropinirole 2 mg tablet 2 mg PO BEDTIME diltiazem HCl 120 mg capsule,extended release 24hr 120 mg PO DAILY rosuvastatin 10 mg tablet 10 mg PO BEDTIME ranolazine 500 mg tablet extended release 12 hr 500 mg PO BID fenofibrate nanocrystallized 145 mg tablet 145 mg PO DAILY alprazolam 0.5 mg tablet 0.5 mg PO BID PRN (Reason: anxiety) Qty: 14 0RF albuterol sulfate 90 mcg/actuation HFA aerosol inhaler 2 puff INHALATION QID temazepam 30 mg capsule 30 mg PO BEDTIME Farxiga 10 mg tablet 10 mg PO DAILY Discharge Orders: Discharge ED (Routine); Ordered 11/18/23 Ordered By: Tan Flores Referrals: Roverto Arnold MD [Primary Care Provider] - 1-3 days Discharge Diet: Advance as tolerated Discharge Activity: Resume usual activity Patient Instructions: Chest Pain (ED) Coding Level of Care Code ED Carton Marker Machine for Bev Rivera
[2023-11-18 13:12] VITALS: PULSE 71; O2SAT 96
[2023-11-18 13:18] LABS: Troponin(5th) Baseline 19 ng/L (0-10)
[2023-11-18 13:39] LABS: Alanine Aminotransferase 13 U/L (0-33); Albumin Level 4.4 g/dL (3.5-5.2); Alkaline Phosphatase 41 U/L (35-105); Anion Gap 18.6 (5-19); Aspartate Amino Transferase 21 U/L (0-32); Blood Urea Nitrogen 14 mg/dL (8-23); Calcium 9.7 mg/dL (8.5-10.5); Carbon Dioxide 24 mmol/L (22-29); Chloride 103 mmol/L (98-107); Globulin 2.9 g/dL (1.3-4.6); Glucose 81 mg/dL (65-115); Lipase 68 U/L (13-60); Osmolality Calculated 294 mOsm/kg (285-295); Potassium 3.6 mmol/L (3.5-5.1); Sodium 142 mmol/L (136-145); Total Bilirubin 0.5 mg/dL (0.15-1.2); Total Protein 7.3 g/dL (6.6-8.7)
[2023-11-18 13:42] VITALS: BP 168/92; PULSE 68; RESP 19; O2SAT 94
[2023-11-18 14:12] VITALS: PULSE 67; O2SAT 92
[2023-11-18 14:27] LABS: Troponin 5 2HR 17.13 ng/L (0-10)
[2023-11-18 14:29] LABS: Troponin 5 2HR Delta -1.87 ABS# (0-10)
== END 2023-11-18 14:52 | disposition home or self-care (01) ==
PROVIDERS: Emergency Provider Emergency Medicine; PCP Family Medicine
DX: R07.89 Other chest pain (principal); Z79.4 Long term (current) use of insulin; Z79.02 Long term (current) use of antithrombotics/antiplatelets; Z87.891 Personal history of nicotine dependence; I25.10 Atherosclerotic heart disease of native coronary artery without angina pectoris; I12.9 Hypertensive chronic kidney disease with stage 1 through stage 4 chronic kidney disease, or unspecified chronic kidney disease; E11.22 Type 2 diabetes mellitus with diabetic chronic kidney disease; N18.2 Chronic kidney disease, stage 2 (mild); E78.5 Hyperlipidemia, unspecified; Z95.1 Presence of aortocoronary bypass graft
CPT/HCPCS: 36415; 71045; 80053; 83690; 84484; 85025; 93005; 99285

== ENCOUNTER 2023-12-11 18:58 | Emergency (ER) | payer MEDICARE, MEDICAID, SELFPAY ==
[2023-12-11 19:11] VITALS: BP 195/81; PULSE 67; RESP 17; TEMP 36.6; O2SAT 94; BMI 20.4
--- NOTE | 2023-12-11 19:16 | ECG_ITS ---
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 Measurements Intervals [place] Rate: 65 P: 23 [place]: 149 QRS: 76 QRSD: 77 T: 85 QT: 395 QTc: 412 Interpretive Statements SINUS RHYTHM MINIMAL ST DEPRESSION [0.025+ mV ST DEPRESSION] Compared to ECG 11/18/2023 12:37:33 ST (T wave) deviation now present T-wave abnormality no longer present Electronically Signed On 12-12-2023 7:48:14 AUTO RADIO MECHANIC by Declan Johnson M.D. [id number] f
--- NOTE | 2023-12-11 19:24 | USR_ITS ---
PROCEDURE INFORMATION: Exam: US Duplex Right Upper Extremity Veins, Limited Exam date and time: 12/11/2023 9:12 PM Age: 78 years old Clinical indication: Edema, localized; Upper extremity, right; Additional info: Swelling TECHNIQUE: Imaging protocol: Real-time duplex ultrasound of the right Upper Extremity with 2-D zuluaga scale, color Doppler flow and spectral waveform analysis with image documentation. Limited exam focused on the right upper extremity veins. COMPARISON: No relevant prior studies available. FINDINGS: Right deep veins: Unremarkable. Axillary, brachial, radial, and ulnar veins are patent throughout without thrombus. Normal Doppler waveforms. Normal compressibility and/or augmentation response. Visualized internal jugular and subclavian veins are patent. Superficial veins: Unremarkable. Visualized cephalic and basilic veins are patent without thrombus. Soft tissues: Unremarkable. US/[place] [id number] IMPRESSION: No evidence for deep venous thrombosis in the right upper extremity.
--- NOTE | 2023-12-11 19:38 | ED_ITS ---
HPI - Extremity Problem General: Chief complaint: Extremity Problem,Nontraumatic Stated complaint: right arm pain Time Seen by Provider: 12/11/23 19:00 Source: patient Mode of arrival: ambulatory Limitations: no limitations History of Present Illness: 78-year-old female states she been havin g some right wrist and right arm pain over the last day. States it has been a sharp pain she felt like her veins were swallowing her arms and she was concerned that she had a DVT. Denies any injury states that her pain is actually improved rates it a 2 out of 10 no fevers no redness Associated symptoms: Deny chest pain, fever(s) or rash Review of Systems Const: Denies: fever(s), chills, body aches or change in appetite ENMT: Denies: throat pain or dental pain Card: Denies: chest pain Resp: Denies: dyspnea GI: Denies: abdominal pain, nausea, vomiting or diarrhea Musc: Reports: extremity pain; Denies: neck pain or back pain Skin/Breast: Denies: rash Neuro: Denies: headache(s) PFSH ED PFSH: Medical History Recurrent UTI Chronic kidney disease (CKD) -on gentle IVF due to anticipated coronary angiogram -baseline Cr appears to be around 1.2-1.3 Dyslipidemia associated with type 2 diabetes mellitus -continue statin Benign essential hypertension with target blood pressure below 140/90 -amlodipine added for more optimal BP control Atherosclerotic heart disease of [place] coronary artery with unstable angina pectoris -s/p bypass x 4, stenting x 3 Peripheral neuropathy [place] spotted fever Hypothyroidism Sleep apnea GERD (gastroesophageal reflux disease) Coronary artery disease Diabetes Kidney disease, chronic, stage II (GFR 60-89 ml/min) Cholecystitis Surgical History History of right-sided carotid endarterectomy Hx of cholecystectomy S/P CABG (coronary artery bypass graft) Patient reports 3 times Family History Father , AT AGE 74 Natural with unknown cause Mother , AT AGE 81 Heart attack Other Family history non-contributory Social History Smoking and tobacco/nicotine status: former use of tobacco/nicotine Alcohol intake: never Substance/Drug Use: never Marital status: Current occupational status: retired Physical Exam Const: COMMON NORMALS: no acute distress, patient oriented x3 and healthy appearing HENMT: COMMON NORMALS: normocephalic and atraumatic HEAD & SCALP: normocephalic and atraumatic Eye: COMMON NORMALS: conjunctivae normal CONJUNCTIVA: Yes conjunctivae normal Neck/C-Spine: COMMON NORMALS: full ROM and supple Chest: COMMONS NORMALS: normal inspection of the chest Resp: COMMON NORMALS: normal respiratory effort Cardio: COMMON NORMALS: regular rate and regular rhythm RATE: regular rate RHYTHM: regular rhythm Extremity: COMMON NORMALS: normal to inspection and full ROM NARRATIVE EXTREMITY EXAM: Right arm is normal to inspection no warmth no signs of septic joint she has full range of motion without pain no swelling noted Neuro: COMMON NORMALS: patient oriented x3, moves all extremities and no focal motor deficits Psych: COMMON NORMALS: mental status grossly normal, Normal thought process present and cooperative THOUGHT PROCESS: Normal thought process present Skin: COMMON NORMALS: no rashes or lesions noted and no wounds GENERAL SKIN EXAM: no rashes or lesions noted Course Vital Signs: Vital signs: Vital Signs Temperature 97.9 F 12/11/23 19:11 Pulse Rate 70 12/11/23 21:42 Respiratory Rate 16 12/11/23 21:42 Blood Pressure 179/78 12/11/23 21:42 Pulse Oximetry 95 12/11/23 21:42 Oxygen Delivery Me thod Room Air 12/11/23 19:11 MDM - Extremity (Nontraumatic) Medical Decision Making Patient presents here with right arm pain is likely due to arthritic pain in her wrist she has no signs of septic joint no signs of blood clot she stable for discharge follow-up with PCP return if worsening. Lab Data I reviewed the patient's lab results. All radiology interpretation(s) finalized by discharge EKG Data EKG 1: I personally reviewed and interpreted this EKG as follows: EKG interpretation date: 12/11/23 EKG interpretation time: 19:18 Interpretation: nsr hr [address] or t wave abnormalities qrs 77 qtc 407 Discharge Plan Discharge Patient Disposition: Home Clinical Impression: Arm pain Qualifiers: Laterality: right Qualified Code(s): M79.601 - Pain in right arm Condition: Stable Prescriptions: No Action Levemir Flexpen 100 unit/mL (3 mL) Insulin Pen 25 unit SUBCUT DAILY PRN (Reason: Hypoglycemia) pantoprazole 40 mg Tablet,Delayed Release (Dr/Ec) 40 mg PO DAILY furosemide 20 mg Tablet 20 mg PO DAILY PRN (Reason: Edema) isosorbide mononitrate 30 mg tablet extended release 24 hr See Rx Instructions .ROUTE .COMPLEX Rx Instructions: 60 mg orally in the morning/ 30 mg orally in the evening potassium chloride 10 mEq tablet extended release 10 meq PO DAILY PRN (Reason: with lasix) clopidogrel 75 mg tablet 75 mg PO DAILY levothyroxine 50 mcg tablet 50 mcg PO DAILY ropinirole 2 mg tablet 2 mg PO BEDTIME diltiazem HCl 120 mg capsule,extended release 24hr 120 mg PO DAILY rosuvastatin 10 mg tablet 10 mg PO BEDTIME ranolazine 500 mg tablet extended release 12 hr 500 mg PO BID fenofibrate nanocrystallized 145 mg tablet 145 mg PO DAILY alprazolam 0.5 mg tablet 0.5 mg PO BID PRN (Reason: anxiety) Qty: 14 0RF albuterol sulfate 90 mcg/actuation HFA aerosol inhaler 2 puff INHALATION QID temazepam 30 mg capsule 30 mg PO BEDTIME Farxiga 10 mg tablet 10 mg PO DAILY Discharge Orders: Discharge ED (Routine); Ordered 12/11/23 Ordered By: Tan Flores Referrals: Roverto Arnold MD [Primary Care Provider] - 1-3 days Discharge Diet: Advance as tolerated Discharge Activity: Resume usual activity Patient Instructions: Arm Pain (ED) Coding Level of Care Code ED Boring Inspector for Bev Rivera
[2023-12-11 21:42] VITALS: BP 179/78; PULSE 70; RESP 16; O2SAT 95
== END 2023-12-11 21:44 | disposition home or self-care (01) ==
PROVIDERS: Emergency Provider Emergency Medicine; PCP Family Medicine
DX: M79.601 Pain in right arm (principal); Z79.02 Long term (current) use of antithrombotics/antiplatelets; Z79.4 Long term (current) use of insulin; Z87.891 Personal history of nicotine dependence; Z95.1 Presence of aortocoronary bypass graft; E11.22 Type 2 diabetes mellitus with diabetic chronic kidney disease; I12.9 Hypertensive chronic kidney disease with stage 1 through stage 4 chronic kidney disease, or unspecified chronic kidney disease; N18.2 Chronic kidney disease, stage 2 (mild); E78.5 Hyperlipidemia, unspecified; I25.10 Atherosclerotic heart disease of native coronary artery without angina pectoris
CPT/HCPCS: 93005; 93971; 99284

== ENCOUNTER 2024-02-04 13:04 | Emergency (ER) | payer MEDICARE, MEDICAID, SELFPAY ==
[2024-02-04 13:13] VITALS: BP 132/62; PULSE 64; RESP 18; TEMP 36.6; O2SAT 94
--- NOTE | 2024-02-04 15:23 | W.ED.EYEPROB ---
HPI - Eye Problem General: Chief complaint: Eye Problems Stated complaint: Left eye pain Time Seen by Provider: 02/04/24 15:15 Source: patient Mode of arrival: ambulatory Limitations: no limitations History of Present Illness: Patient is a 78-year-old female presents to ED today with a complaint of left eye irritation and feeling like she has something in the eye. Patient states she has extensive ophthalmic history including bilateral lens repairs as well as macular degeneration. States she has a history of entropion and recently had several eyelashes plucked . This was performed by PCP or her glue line operator in [place] ? Patient states she has an upcoming appointment with Dr. Tanner on Wednesday. She has not noticed any visual loss to the eye. She has not noted any discharge. Family states she keeps rubbing it . She has been working outside a lot in her garden and clearing brush. chief complaint: eye pain, eye redness and other (eye irritation ) Onset (ago): day(s) Onset description: gradual Duration: constant Location: left eye Eye Symptoms: foreign body sensation and itching Place: home Mechanism: none Severity: mild Associated symptoms: Reports no associated symptoms Treatments Prior to Arrival: irrigated eye Related Data: Patient tetanus UTD: Yes Review of Systems Eyes: Reports: eye discomfort and dry eyes; Denies: change in vision, blurry vision, blind spots, photophobia, floaters or seeing flashes PFS ED PFSH: Medical History Recurrent UTI Chronic kidney disease (CKD) -on gentle IVF due to anticipated coronary angiogram -baseline Cr appears to be around 1.2-1.3 Dyslipidemia associated with type 2 diabetes mellitus -continue statin Benign essential hypertension with target blood pressure below 140/90 -amlodipine added for more optimal BP control Atherosclerotic heart disease of [place] coronary artery with unstable angina pectoris -s/p bypass x 4, stenting x 3 Peripheral neuropathy [place] spotted fever Hypothyroidism Sleep apnea GERD (gastroesophageal reflux disease) Coronary artery disease Diabetes Kidney disease, chronic, stage II (GFR 60-89 ml/min) Cholecystitis Surgical History History of right-sided carotid endarterectomy Hx of cholecystectomy S/P CABG (coronary artery bypass graft) Patient reports 3 times Family History Father , AT AGE 74 Natural with unknown cause Mother , AT AGE 81 Heart attack Other Family history non-contributory Social History Smoking and tobacco/nicotine status: former use of tobacco/nicotine Alcohol intake: never Substance/Drug Use: never Marital status: Current occupational status: retired Physical Exam Const: COMMON NORMALS: no acute distress, average body habitus, patient oriented x3, no limitations, alert and well nourished Eye: COMMON NORMALS: Equal, round and reactive pupils present, EOMs intact bilaterally, conjunctivae normal and no scleral icterus GENERAL EYE: appearance normal, both eyes and all related structures and normal light reflex VISUAL ACUITY: Yes acuity normal ALIGNMENT: Yes alignment normal PERIORBITAL: periorbital findings normal EYELID: other (entropion) CONJUNCTIVA: Yes conjunctivae normal SCLERA: sclerae normal CORNEA: Yes other (bilateral corneal clouding) PUPIL: Yes Equal, round and reactive pupils present EOM: Yes EOM abnormal DIRECT OPHTHALMOSCOPY: Yes normal light reflex OTHER: eye pressures 10mmHg on R and 12mmHg on L Neuro: COMMON NORMALS: patient oriented x3 SENSORIUM/ORIENTATION: Yes alert Course Vital Signs: Vital signs: Vital Signs Temperature 98 F 02/04/24 13:13 Pulse Rate 58 L 02/04/24 15:54 Respiratory Rate 18 02/04/24 13:13 Blood Pressure 159/65 02/04/24 15:54 Pulse Oximetry 96 02/04/24 15:54 Oxygen Delivery Me thod Room Air 02/04/24 15:54 MDM - Eye Problem Medical Decision Making Patient is not having any visual loss. Nothing to suggest retinal detachment, globe injury, acute infectious etiology, glaucoma, scleritis, glaucoma, or other emergent pathology. She has a follow-up appointment with Dr. Tanner on Wednesday. Recommend she keep this appointment. Return to the precautions given. Medical Records I reviewed the patient's medical records. No radiology studies performed this visit Discharge Plan Discharge Patient Disposition: Home Clinical Impression: Left eye complaint Condition: Stable Prescriptions: No Action Levemir Flexpen 100 unit/mL (3 mL) Insulin Pen 25 unit SUBCUT DAILY PRN (Reason: Hypoglycemia) pantoprazole 40 mg Tablet,Delayed Release (Dr/Ec) 40 mg PO DAILY furosemide 20 mg Tablet 20 mg PO DAILY PRN (Reason: Edema) isosorbide mononitrate 30 mg tablet extended release 24 hr See Rx Instructions .ROUTE .COMPLEX Rx Instructions: 60 mg orally in the morning/ 30 mg orally in the evening potassium chloride 10 mEq tablet extended release 10 meq PO DAILY PRN (Reason: with lasix) clopidogrel 75 mg tablet 75 mg PO DAILY levothyroxine 50 mcg tablet 50 mcg PO DAILY diltiazem HCl 120 mg capsule,extended release 24hr 120 mg PO DAILY rosuvastatin 10 mg tablet 10 mg PO BEDTIME ranolazine 500 mg tablet extended release 12 hr 500 mg PO BID fenofibrate nanocrystallized 145 mg tablet 145 mg PO DAILY alprazolam 0.5 mg tablet 0.5 mg PO BID PRN (Reason: anxiety) Qty: 14 0RF metoprolol tartrate 25 mg tablet 25 mg PO BID pregabalin 75 mg capsule 75 mg PO BID albuterol sulfate 90 mcg/actuation HFA aerosol inhaler 2 puff INHALATION QID temazepam 30 mg capsule 30 mg PO BEDTIME dapagliflozin propanediol [Farxiga] 10 mg tablet 10 mg PO DAILY Discharge Orders: Discharge ED (Routine); Ordered 02/04/24 Ordered By: Dorothy Barrett Referrals: Roverto Arnold MD [Primary Care Provider] - Activity Restrictions/Additional Instructions: Please follow-up with Dr. Tanner as scheduled on Wednesday. Coding Level of Care Code ED Merchandising Lead for Bev Rivera
[2024-02-04 15:54] VITALS: BP 159/65; PULSE 58; O2SAT 96
[2024-02-04] MEDS: eye irrigation 30 mL Btl EYE-LEFT (15:59)
[2024-02-04] MEDS: fluorescein 1 mg Strip EYE-LEFT (15:59)
[2024-02-04] MEDS: tetracaine 0.5% Op Soln 4 mL Btl 1 DROP EYE-LEFT (16:00)
--- NOTE | 2024-02-04 16:00 | PC.NURSE ---
EYE MEDICATIONS ADMINISTERED BY VANI HEATON.
[2024-02-04 16:30] VITALS: BP 166/85; PULSE 59; O2SAT 95
== END 2024-02-04 16:31 | disposition home or self-care (01) ==
PROVIDERS: Emergency Provider Physician Assistant; PCP Family Medicine
DX: H57.12 Ocular pain, left eye (principal); Z79.4 Long term (current) use of insulin; Z79.02 Long term (current) use of antithrombotics/antiplatelets; Z87.891 Personal history of nicotine dependence; I12.9 Hypertensive chronic kidney disease with stage 1 through stage 4 chronic kidney disease, or unspecified chronic kidney disease; E11.22 Type 2 diabetes mellitus with diabetic chronic kidney disease; N18.2 Chronic kidney disease, stage 2 (mild); E78.5 Hyperlipidemia, unspecified; I25.110 Atherosclerotic heart disease of native coronary artery with unstable angina pectoris; Z95.1 Presence of aortocoronary bypass graft
CPT/HCPCS: 99283

== ENCOUNTER 2024-02-21 12:58 | Outpatient (CLI) | payer MEDICARE, MEDICAID, SELFPAY ==
[2024-02-21 13:24] LABS: Basophils % 0.5 %; Eosinophils # 0.1 10^3/uL (0.0-0.8); Eosinophils % 1.5 %; Hematocrit 38.7 % (36-47); Lymphocytes # 1.5 10^3/uL (0.8-4.8); Lymphocytes % 21.9 %; Mean Corpuscular HGB Conc 31.8 g/dL (30-55); Mean Corpuscular Hemoglobin 25.6 pg (27-33); Mean Corpuscular Volume 80.6 fl (85-98); Mean Platelet Volume 11.5 fL (7.4-10.4); Monocytes # 0.8 10^3/uL (0.2-0.9); Monocytes % 11.3 %; Neutrophils # 4.29 10^3/uL (1.8-7.7); Neutrophils % 64.6 %; Nucleated Red Blood Cells % 0 %; Platelet Count 212 10^3/cmm (157-399); Red Cell Distribution Width 14.7 % (12.1-15.1); White Blood Count 6.63 10^3/uL (3.29-11.43)
[2024-02-21 13:48] LABS: Calcium 9.1 mg/dL (8.5-10.5)
[2024-02-21 13:50] LABS: Creatinine Urine, Random 59 mg/dL (28-217); Microalbum Creatinine Ratio Ur 34 mg/dL (0-20); Microalbumin Random Urine 2 ug/dL (0-20)
[2024-02-21 13:54] LABS: Parathyroid Hormone 30.9 pg/mL (15-65)
[2024-02-21 14:08] LABS: 25 Hydroxy Vitamin D 37 ng/mL (30-100); Albumin Level 4.3 g/dL (3.5-5.2); Blood Urea Nitrogen 25 mg/dL (8-23); Carbon Dioxide 28 mmol/L (22-29); Chloride 102 mmol/L (98-107); Glucose 134 mg/dL (65-115); Phosphorus 3.7 mg/dL (2.5-4.5); Sodium 138 mmol/L (136-145)
== END 2024-02-21 12:59 | disposition home or self-care (01) ==
LOC: LAB 13:01
PROVIDERS: PCP Family Medicine; Visit Provider Internal Medicine
DX: N18.32 Chronic kidney disease, stage 3b (principal)
CPT/HCPCS: 36415; 80069; 82044; 82306; 82310; 83970; 85025

== ENCOUNTER 2024-04-01 16:23 | Emergency (ER) | payer MEDICARE, MEDICAID, SELFPAY ==
[2024-04-01] VITALS (7 sets, daily range): BP systolic 148–194; BP diastolic 69–99; PULSE 68–81; RESP 16–17; TEMP 36.8; O2SAT 92–96
--- NOTE | 2024-04-01 18:14 | XRR_ITS ---
PROCEDURE INFORMATION: Exam: XR Chest Exam date and time: 04/01/2024 6:38 PM Age: 78 years old Clinical indication: Angina pectoris; Patient HX: Chest pain TECHNIQUE: Imaging protocol: Radiologic exam of the chest. Views: 1 view. COMPARISON: CR XR chest 1V portable [id number] 11/18/2023 1:10 PM FINDINGS: Lungs: Mild left basilar subsegmental atelectasis versus scarring. No consolidation. Pleural spaces: No substantial pleural effusion or pneumothorax. Heart/Mediastinum: No cardiomegaly. Prior CABG. Coronary artery stent material. Vasculature: Aortic arch atherosclerotic calcification. Bones/joints: Degenerative change along the spine. Prior median sternotomy. Intraperitoneal space: Right upper abdomen surgical clips. Other findings: Left neck surgical clips. XR/XR chest 1V portable [id number] IMPRESSION: No acute findings.
--- NOTE | 2024-04-01 18:14 | ECG_ITS ---
[facility] Test Date: 2024-04-01 Pat Name: Yadira Cruz Department: Room: Gender: Female Automatic Bandsaw Tender: : 1945 Requested By: Tan Flores Order Number: [id number] Jeanine MD: Moris Gee M.D. Measurements Intervals [place] Rate: 72 P: -6 [place]: 145 QRS: 105 QRSD: 85 T: 91 QT: 384 QTc: 421 Interpretive Statements SINUS RHYTHM RIGHT AXIS DEVIATION [QRS AXIS > 100] Compared to ECG 12/11/2023 19:18:34 Right-axis deviation now present ST (T wave) deviation no longer present Electronically Signed On 04-02-2024 20:26:50 CDT by Moris Gee M.D. [id number]
--- NOTE | 2024-04-01 18:41 | ED_ITS ---
HPI - Weakness 2 General: Chief complaint: Weakness Stated complaint: abd pain, tightness in abd Time Seen by Provider: 04/01/24 18:35 History of Present Illness: Patient presents to the ER with daughter at bedside. Patient has complaints of no energy for about the last 3 days. Patient is normally awake alert oriented and doing something the entire time she is awake. But in the last 3 days she has been sleeping on a couch and having no energy at all. Also episodes during these times she has pain and burning in her abdomen, chest tightness, involuntary muscle jerks, and nausea. Patient has tried a Zofran which did not seem to help. Patient does have a cardiac history with multiple stents. Patient says she is on medical management from here on out. Patient is not having chest pain at this moment. Review of Systems 2 General: Reports: 10 or more systems reviewed and unremarkable except in HPI and below PFSH ED 2 PFSH: Medical History Recurrent UTI Chronic kidney disease (CKD) -on gentle IVF due to anticipated coronary angiogram -baseline Cr appears to be around 1.2-1.3 Dyslipidemia associated with type 2 diabetes mellitus -continue statin Benign essential hypertension with target blood pressure below 140/90 -amlodipine added for more optimal BP control Atherosclerotic heart disease of [place] coronary artery with unstable angina pectoris -s/p bypass x 4, stenting x 3 Peripheral neuropathy [place] spotted fever Hypothyroidism Sleep apnea GERD (gastroesophageal reflux disease) Coronary artery disease Diabetes Kidney disease, chronic, stage II (GFR 60-89 ml/min) Cholecystitis Surgical History History of right-sided carotid endarterectomy Hx of cholecystectomy S/P CABG (coronary artery bypass graft) Patient reports 3 times Family History Father , AT AGE 74 Natural with unknown cause Mother , AT AGE 81 Heart attack Other Family history non-contributory Social History Smoking and tobacco/nicotine status: former use of tobacco/nicotine Alcohol intake: never Substance/Drug Use: never Marital status: Current occupational status: retired Physical Exam 2 Const: COMMON NORMALS: no acute distress, average body habitus, patient oriented x3, no limitations, healthy appearing, alert and well nourished HENMT: COMMON NORMALS: normocephalic, atraumatic, hearing grossly normal bilaterally, external ears normal, Normal external nose present and moist oral mucous membranes HEAD & SCALP: normocephalic and atraumatic NOSE: Normal external nose present EXTERNAL EAR: Yes external ears normal Eye: COMMON NORMALS: Equal, round and reactive pupils present, EOMs intact bilaterally, conjunctivae normal and no scleral icterus CONJUNCTIVA: Yes conjunctivae normal PUPIL: Yes Equal, round and reactive pupils present Neck/C-Spine: COMMON NORMALS: full ROM, no lymphadenopathy, supple, no meningeal signs, no JVD and Thyroid normal THYROID: Thyroid normal Chest: COMMONS NORMALS: normal inspection of the chest and normal palpation of entire chest wall Resp: COMMON NORMALS: normal respiratory effort, No retractions, No use of accessory muscles and clear to auscultation bilaterally AUSCULTATION: clear to auscultation bilaterally Cardio: COMMON NORMALS: no JVD, regular rate, regular rhythm, S1 normal heart sound present, S2 normal heart sound present, No gallops present (Cardio), No clicks present (Cardio) and No murmurs present (Cardio) RATE: regular rate RHYTHM: regular rhythm HEART SOUNDS: S1 normal heart sound present and S2 normal heart sound present GI: COMMON NORMALS: Normal to inspection, nondistended, normoactive bowel sounds present, Soft to palpation, non-tender, No hepatosplenomegaly present and no masses PALPATION: Yes Soft to palpation and Yes No hepatosplenomegaly present Neuro: COMMON NORMALS: patient oriented x3 SENSORIUM/ORIENTATION: Yes alert MENINGEAL SIGNS: Yes no meningeal signs Course 2 Vital Signs: Vital signs: Vital Signs Temperature 98.2 F 04/01/24 16:33 Pulse Rate 81 04/01/24 19:14 Respiratory Rate 17 04/01/24 19:14 Blood Pressure 173/99 04/01/24 19:14 Pulse Oximetry 94 04/01/24 19:14 Oxygen Delivery Me thod Room Air 04/01/24 19:14 MDM - Weakness Medical Decision Making Physical exam and lab work included CBC CMP cardiac enzymes lipase TSH and urinalysis. All of which was essentially benign or stable for the patient. Chest x-ray showed no acute findings. Patient will be referred back to her PCP for further evaluation testing as needed. Differential Diagnosis Unlikely acute myocardial infarction, anemia, hypoglycemia, hypothyroidism, rhabdomyolysis, sepsis or dehydration Medical Records I reviewed the patient's medical records. Lab Data I reviewed the patient's lab results. 04/01/24 19:03 04/01/24 19:03 Radiology Impressions Chest X-Ray 04/01/24 18:14 IMPRESSION: No acute findings. Laboratory Results WBC 5.21 10^3/uL (3.29-11.43) 04/01/24 19:03 RBC 5.25 10^6/uL (3.85-5.65) 04/01/24 19:03 Hgb 13.40 g/dL (11.27-16.99) 04/01/24 19:03 Hct 41.6 % (36-47) 04/01/24 19:03 MCV 79.2 fl (85-98) L 04/01/24 19:03 MCH 25.5 pg (27-33) L 04/01/24 19:03 MCHC 32.2 g/dL (30-55) 04/01/24 19:03 RDW 17.2 % (12.1-15.1) H 04/01/24 19:03 Plt Count 255 10^3/cmm (157-399) 04/01/24 19:03 MPV 11.7 fL (7.4-10.4) H 04/01/24 19:03 Neut % (Auto) 67.7 % 04/01/24 19:03 Lymph % (Auto) 20.5 % 04/01/24 19:03 [place] % (Auto) 10.6 % 04/01/24 19:03 Eos % (Auto) 0.4 % 04/01/24 19:03 Baso % (Auto) 0.6 % 04/01/24 19:03 Neut # (Auto) 3.53 10^3/uL (1.8-7.7) 04/01/24 19:03 Lymph # (Auto) 1.1 10^3/uL (0.8-4.8) 04/01/24 19:03 [place] # (Auto) 0.6 10^3/uL (0.2-0.9) 04/01/24 19:03 Eos # (Auto) 0.0 10^3/uL (0.0-0.8) 04/01/24 19:03 Baso # (Auto) 0.0 10^3/uL (0.0-0.1) 04/01/24 19:03 Nucleated RBC % (auto) 0 % 04/01/24 19:03 Nucleated RBCs # 0.0 /100WBC 04/01/24 19:03 Sodium 140 mmol/L (136-145) 04/01/24 19:03 Potassium 3.8 mmol/L (3.5-5.1) 04/01/24 19:03 Chloride 102 mmol/L (98-107) 04/01/24 19:03 Carbon Dioxide 25 mmol/L (22-29) 04/01/24 19:03 Anion Gap 16.8 (5-19) 04/01/24 19:03 BUN 17 mg/dL (8-23) 04/01/24 19:03 Creatinine 1.4 mg/dL (0.5-0.9) H 04/01/24 19:03 GFR Calculation Not Reportable 04/01/24 19:03 Glucose 119 mg/dL (65-115) H 04/01/24 19:03 Calculated Osmolality 293 mOsm/kg (285-295) 04/01/24 19:03 Calcium 9.9 mg/dL (8.5-10.5) 04/01/24 19:03 Magnesium 2.0 mg/dL (1.7-2.3) 04/01/24 19:01 Total Bilirubin 0.5 mg/dL (0.15-1.2) 04/01/24 19:03 AST 19 U/L (0-32) 04/01/24 19:03 ALT 11 U/L (0-33) 04/01/24 19:03 Alkaline Phosphatase 47 U/L (35-105) 04/01/24 19:03 Troponin T Baseline 16 ng/L (0-10) H 04/01/24 19:03 Troponin T 120 Minute 15.98 ng/L (0-10) H 04/01/24 21:01 Delta Troponin T -0.02 ABS# (0-10) L 04/01/24 21:01 Total Protein 7.3 g/dL (6.6-8.7) 04/01/24 19:03 Albumin 4.5 g/dL (3.5-5.2) 04/01/24 19:03 Globulin 2.8 g/dL (1.3-4.6) 04/01/24 19:03 Lipase 67 U/L (13-60) H 04/01/24 19:03 TSH 1.50 uIU/mL (0.27-4.20) 04/01/24 19:01 Urine Color Yellow (Yellow) 04/01/24 19:30 Urine Appearance Clear (CLEAR) 04/01/24 19:30 Urine pH 5 (5-7) 04/01/24 19:30 Ur Specific [place] 1.015 (1.005-1.030) 04/01/24 19:30 Urine Protein Neg (Negative) 04/01/24 19:30 Urine Glucose (UA) 4+ (Normal) H 04/01/24 19:30 Urine Ketones Negative (Negative) 04/01/24 19:30 Urine Blood Neg (Negative) 04/01/24 19:30 Urine Nitrate Negative (Negative) 04/01/24 19:30 Urine Bilirubin Neg (Negative) 04/01/24 19:30 Urine Urobilinogen Neg mg/dL (Negative) 04/01/24 19:30 Ur Leukocyte Esterase Negative (Negative) 04/01/24 19:30 All radiology interpretation(s) finalized by discharge EKG Data EKG 1: I personally reviewed and interpreted this EKG as follows: EKG interpretation date: 04/01/24 EKG interpretation time: 20:17 Interpretation: Ventricular rate 66 bpm, MT interval 158, QRS duration 85, QTc of 413, sinus rhythm, Discharge Plan Discharge Patient Disposition: Home Clinical Impression: Fatigue Qualifiers: Fatigue type: unspecified Qualified Code(s): R53.83 - Other fatigue Hypertension Qualifiers: Hypertension type: unspecified Qualified Code(s): I10 - Essential (primary) hypertension Condition: Stable Prescriptions: No Action Levemir Flexpen 100 unit/mL (3 mL) Insulin Pen 25 unit SUBCUT DAILY PRN (Reason: Hypoglycemia) pantoprazole 40 mg Tablet,Delayed Release (Dr/Ec) 40 mg PO DAILY furosemide 20 mg Tablet 20 mg PO DAILY PRN (Reason: Edema) isosorbide mononitrate 30 mg tablet extended release 24 hr See Rx Instructions .ROUTE .COMPLEX Rx Instructions: 60 mg orally in the morning/ 30 mg orally in the evening potassium chloride 10 mEq tablet extended release 10 meq PO DAILY PRN (Reason: with lasix) clopidogrel 75 mg tablet 75 mg PO DAILY levothyroxine 50 mcg tablet 50 mcg PO DAILY diltiazem HCl 120 mg capsule,extended release 24hr 120 mg PO DAILY rosuvastatin 10 mg tablet 10 mg PO BEDTIME ranolazine 500 mg tablet extended release 12 hr 500 mg PO BID fenofibrate nanocrystallized 145 mg tablet 145 mg PO DAILY alprazolam 0.5 mg tablet 0.5 mg PO BID PRN (Reason: anxiety) Qty: 14 0RF metoprolol tartrate 25 mg tablet 25 mg PO BID pregabalin 75 mg capsule 75 mg PO BID albuterol sulfate 90 mcg/actuation HFA aerosol inhaler 2 puff INHALATION QID temazepam 30 mg capsule 30 mg PO BEDTIME dapagliflozin propanediol [Farxiga] 10 mg tablet 10 mg PO DAILY Discharge Orders: Discharge ED (Routine); Ordered 04/01/24 Ordered By: Henrique Fay Referrals: Roverto Arnold MD [Primary Care Provider] - 1 week Patient Instructions: Fatigue (ED), Hypertension Activity Restrictions/Additional Instructions: Your evaluation in the ER through physical exam lab work, urinalysis, chest x- ray did not show any acute causes of your symptomatology. Please follow-up with your family practice physician for further evaluation and treatment. Please see them within the next 7 days. Please keep a blood pressure log during this time and take it to your appointment. Coding Level of Care Code ED Compliance Representative Dealer for Bev Rivera
[2024-04-01 19:12] LABS: Basophils % 0.6 %; Eosinophils % 0.4 %; Hematocrit 41.6 % (36-47); Lymphocytes # 1.1 10^3/uL (0.8-4.8); Lymphocytes % 20.5 %; Mean Corpuscular HGB Conc 32.2 g/dL (30-55); Mean Corpuscular Hemoglobin 25.5 pg (27-33); Mean Corpuscular Volume 79.2 fl (85-98); Mean Platelet Volume 11.7 fL (7.4-10.4); Monocytes # 0.6 10^3/uL (0.2-0.9); Monocytes % 10.6 %; Neutrophils # 3.53 10^3/uL (1.8-7.7); Neutrophils % 67.7 %; Nucleated Red Blood Cells % 0 %; Platelet Count 255 10^3/cmm (157-399); Red Blood Count 5.25 10^6/uL (3.85-5.65); Red Cell Distribution Width 17.2 % (12.1-15.1); White Blood Count 5.21 10^3/uL (3.29-11.43)
[2024-04-01 19:33] LABS: Add Urine Microscopic? NO; Charge for UA Resulting for Rev
[2024-04-01 19:35] LABS: Alanine Aminotransferase 11 U/L (0-33); Albumin Level 4.5 g/dL (3.5-5.2); Alkaline Phosphatase 47 U/L (35-105); Anion Gap 16.8 (5-19); Aspartate Amino Transferase 19 U/L (0-32); Blood Urea Nitrogen 17 mg/dL (8-23); Calcium 9.9 mg/dL (8.5-10.5); Carbon Dioxide 25 mmol/L (22-29); Chloride 102 mmol/L (98-107); Creatinine Clr Calc Pharmacy 25.9151; Globulin 2.8 g/dL (1.3-4.6); Glucose 119 mg/dL (65-115); Lipase 67 U/L (13-60); Osmolality Calculated 293 mOsm/kg (285-295); Potassium 3.8 mmol/L (3.5-5.1); Sodium 140 mmol/L (136-145); Total Bilirubin 0.5 mg/dL (0.15-1.2); Total Protein 7.3 g/dL (6.6-8.7)
[2024-04-01 19:37] LABS: Bilirubin Urine Neg (Negative); Blood Urine Neg (Negative); Glucose Urine UA 4+ (Normal); Ketones Urine Negative (Negative); Leukocyte Esterase Urine Negative (Negative); Nitrate Urine Negative (Negative); Protein Urine Neg (Negative); Specific Gravity, Urine 1.015 (1.005-1.030); Urine Appearance Clear (CLEAR); Urine Color Yellow (Yellow); Urobilinogen Urine Neg (Negative); pH Urine 5 (5-7)
[2024-04-01 19:39] LABS: Troponin(5th) Baseline 16 ng/L (0-10)
--- NOTE | 2024-04-01 20:14 | ECG_ITS ---
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 Measurements Intervals [place] Rate: 66 P: -15 VT: 158 QRS: 31 QRSD: 85 T: 107 QT: 399 QTc: 420 Interpretive Statements SINUS RHYTHM MINIMAL ST DEPRESSION [0.025+ mV ST DEPRESSION] ABNORMAL QRS-T ANGLE [QRS-T AXIS DIFFERENCE > 60] Compared to ECG 12/11/2023 19:18:34 No significant changes Electronically Signed On 04-02-2024 20:40:52 CDT by Moris Gee M.D. [id number]
[2024-04-01 21:25] LABS: Troponin 5 2HR 15.98 ng/L (0-10)
[2024-04-01 21:29] LABS: Troponin 5 2HR Delta -0.02 ABS# (0-10)
== END 2024-04-01 22:05 | disposition home or self-care (01) ==
PROVIDERS: Emergency Medicine; Emergency Provider Emergency Medicine; PCP Family Medicine
DX: R53.83 Other fatigue (principal); Z79.02 Long term (current) use of antithrombotics/antiplatelets; Z79.4 Long term (current) use of insulin; Z87.891 Personal history of nicotine dependence; Z95.1 Presence of aortocoronary bypass graft; E11.22 Type 2 diabetes mellitus with diabetic chronic kidney disease; I12.9 Hypertensive chronic kidney disease with stage 1 through stage 4 chronic kidney disease, or unspecified chronic kidney disease; N18.2 Chronic kidney disease, stage 2 (mild); E78.5 Hyperlipidemia, unspecified; I25.10 Atherosclerotic heart disease of native coronary artery without angina pectoris
CPT/HCPCS: 36415; 71045; 80053; 81003; 83690; 83735; 84443; 84484; 85025; 93005; 99285

== ENCOUNTER → 2024-04-05 10:39 | Outpatient (BNVA) | payer MEDICARE, MEDICAID, SELFPAY | PROVIDERS: PCP Family Medicine; Visit Provider Nurse Practitioner Family | DX: D48.5 Neoplasm of uncertain behavior of skin (principal); L57.0 Actinic keratosis; D22.62 Melanocytic nevi of left upper limb, including shoulder; L81.4 Other melanin hyperpigmentation; L57.8 Other skin changes due to chronic exposure to nonionizing radiation | CPT/HCPCS: 11102; 17000; 99203 ==

== ENCOUNTER 2024-09-05 11:45 | Outpatient (CLI) | payer MEDICARE, MEDICAID, SELFPAY ==
[2024-09-05 12:58] LABS: Creatinine Urine, Random 108 mg/dL (28-217); Microalbum Creatinine Ratio Ur 37 mg/dL (0-20); Microalbumin Random Urine 4 ug/dL (0-20)
[2024-09-05 13:00] LABS: Calcium 9.7 mg/dL (8.5-10.5)
[2024-09-05 13:01] LABS: Albumin Level 4.2 g/dL (3.5-5.2); Anion Gap 13.5 (5-19); Blood Urea Nitrogen 13 mg/dL (8-23); Calcium 9.5 mg/dL (8.5-10.5); Carbon Dioxide 28 mmol/L (22-29); Chloride 99 mmol/L (98-107); Glucose 120 mg/dL (65-115); Phosphorus 2.6 mg/dL (2.5-4.5); Potassium 3.5 mmol/L (3.5-5.1); Sodium 137 mmol/L (136-145)
== END 2024-09-05 11:46 | disposition home or self-care (01) ==
LOC: LAB 11:46
PROVIDERS: PCP Family Medicine; Visit Provider Internal Medicine
DX: N18.32 Chronic kidney disease, stage 3b (principal)
CPT/HCPCS: 36415; 80069; 82044; 82310; 83970

== ENCOUNTER → 2024-10-23 14:40 | Outpatient (BNVA) | payer MEDICARE, MEDICAID, SELFPAY | PROVIDERS: PCP Family Medicine; Visit Provider Nurse Practitioner Family | DX: D04.39 Carcinoma in situ of skin of other parts of face (principal); L40.0 Psoriasis vulgaris; S51.012A Laceration without foreign body of left elbow, initial encounter; X58.XXXA Exposure to other specified factors, initial encounter; D22.62 Melanocytic nevi of left upper limb, including shoulder; L81.4 Other melanin hyperpigmentation; L57.8 Other skin changes due to chronic exposure to nonionizing radiation | CPT/HCPCS: 99214 ==

== ENCOUNTER → 2025-02-21 15:23 | Outpatient (BNVA) | payer MEDICARE, MEDICAID, SELFPAY | PROVIDERS: PCP Family Medicine; Visit Provider Nurse Practitioner Family | DX: D22.62 Melanocytic nevi of left upper limb, including shoulder (principal); L81.4 Other melanin hyperpigmentation; L57.8 Other skin changes due to chronic exposure to nonionizing radiation; X32.XXXA Exposure to sunlight, initial encounter; L82.1 Other seborrheic keratosis; Z08 Encounter for follow-up examination after completed treatment for malignant neoplasm; Z86.007 Personal history of in-situ neoplasm of skin; Z09 Encounter for follow-up examination after completed treatment for conditions other than malignant neoplasm | CPT/HCPCS: 99214 ==

== ENCOUNTER 2025-05-21 10:58 | Outpatient (CLI) | payer MEDICARE, MEDICAID, SELFPAY ==
[2025-05-21 12:17] LABS: Hematocrit 44.0 % (36-47); Hemoglobin 13.80 g/dL (11.27-16.99); Mean Corpuscular HGB Conc 31.4 g/dL (30-55); Mean Corpuscular Hemoglobin 23.9 pg (27-33); Mean Corpuscular Volume 76.3 fl (85-98); Nucleated Red Blood Cells % 0 %; Platelet Count 292 10^3/cmm (157-399); Red Blood Count 5.77 10^6/uL (3.85-5.65); White Blood Count 7.42 10^3/uL (3.29-11.43)
[2025-05-21 12:35] LABS: Creatinine Urine, Random 35 mg/dL (28-217); Microalbum Creatinine Ratio Ur 57 mg/dL (0-20)
[2025-05-21 12:38] LABS: Calcium 10.0 mg/dL (8.5-10.5)
[2025-05-21 12:39] LABS: Albumin Level 4.4 g/dL (3.5-5.2); Anion Gap 16.2 (5-19); Blood Urea Nitrogen 12 mg/dL (8-23); Calcium 10.1 mg/dL (8.5-10.5); Carbon Dioxide 27 mmol/L (22-29); Chloride 99 mmol/L (98-107); Glucose 147 mg/dL (65-115); Potassium 4.2 mmol/L (3.5-5.1); Sodium 138 mmol/L (136-145)
== END 2025-05-21 10:59 | disposition home or self-care (01) ==
PROVIDERS: PCP Family Medicine; Visit Provider Nurse Practitioner Family
DX: I12.9 Hypertensive chronic kidney disease with stage 1 through stage 4 chronic kidney disease, or unspecified chronic kidney disease (principal); E11.22 Type 2 diabetes mellitus with diabetic chronic kidney disease; N18.32 Chronic kidney disease, stage 3b; K21.9 Gastro-esophageal reflux disease without esophagitis; E55.9 Vitamin D deficiency, unspecified
CPT/HCPCS: 36415; 80069; 82044; 82310; 83970; 85025

== ENCOUNTER 2025-06-23 11:36 | Inpatient (IN) | payer OTHER, MEDICAID, SELFPAY ==
--- OUTSIDE RECORDS SUMMARY | 2022-12-01 10:00 | XMS_ITS | Continuity of Care Document ---
Author Organization [facility] Address [address] [id number] [address] Phone Care Team Providers Care Social Science Professor Name Role Phone Vitaly Daley DDS Unavailable [...] Diagnoses Date Provider Providers Copied on Encounter [facility], [id number]-Po [place], [place], [id number], [place] tel:[phone] Dental General No Information Thuy Haider. [address] [place] [address], [address], [place]. tel:[phone] Referring Provider: Vitaly Daley, [address] [place] [address], [address]. tel:[phone] [facility], [id number] 526016NO-Va [place], [address], [place] tel:[phone] Dental General Encounter for dental exam and cleaning w/o abnormal findings Thuy Haider. [address] [place] [address], [address], [place]. tel:[phone] Referring Provider: Vitaly Daley, [address] [place] [address], [address]. tel:[phone] [facility], [id number] 149405EE-Av [place], [address], [place] tel:[phone] Dental General LL Encounter for dental exam and cleaning w/o abnormal findings Thuy Haider. [address] [place] [address], [address], [place]. tel:[phone] Referring Provider: Vitaly Daley, [address] [place] [address], [address]. tel:[phone] [facility], [id number]-Qt [place], [address], [place] tel:[phone] [facility] No Information Migel Lizarraga. [address], [place], [id number], [place]. tel:[phone] Referring Provider: Nu Lainez, [address] [place], [address]. tel:[phone] Family History Family Member Type Diagnosis Age At Onset No Information Payers Payer name Insurance type Covered alliance party ID Angelita sparrow(s) D [facility] Advantage CI [id number] Social History Type Description Quantity Date Captured [...]
[2025-06-23] VITALS (8 sets, daily range): BP systolic 140–152; BP diastolic 63–75; PULSE 71–99; RESP 17–22; TEMP 36.4–36.8; O2SAT 91–95; BMI 19.9
--- NOTE | 2025-06-23 11:38 | XRR_ITS ---
PROCEDURE INFORMATION: Exam: XR Chest Exam date and time: 06/23/2025 11:45 AM Age: 79 years old Clinical indication: Pain; Chest pressure; Prior surgery; Surgery date: 6+ months; Surgery type: Bypass; Additional info: Cp TECHNIQUE: Imaging protocol: Radiologic exam of the chest. Views: 1 view. COMPARISON: CR XR chest 1V portable [id number] 04/01/2024 6:38 PM FINDINGS: Lungs: Mild opacity/atelectasis at the left lung base along the diaphragm. Pleural spaces: Unremarkable. No pleural effusion. No pneumothorax. Heart/Mediastinum: Unremarkable. No cardiomegaly. Bones/joints: Status post median sternotomy and CABG. XR/XR chest 1V portable [id number] IMPRESSION: Mild atelectasis/opacity at the left lung base.
--- NOTE | 2025-06-23 11:38 | ECG_ITS ---
[facility] Test Date: 2025-06-23 Pat Name: Yadira Cruz Department: Room: Gender: Female Medical Reception: : 1945 Requested By: Tan Flores Order Number: [id number] Reading MD: Valerio So M.D. Measurements Intervals [place] Rate: 96 P: 73 HI: 136 QRS: 92 QRSD: 89 T: 90 QT: 349 QTc: 441 Interpretive Statements SINUS RHYTHM BORDERLINE RIGHT AXIS DEVIATION [QRS AXIS > 90] NONSPECIFIC ST-T WAVE ABNORMALITIES Compared to ECG 04/01/2024 20:17:44 NO CHANGE Electronically Signed On 06-24-2025 22:22:50 CDT by Valerio So M.D. [id number]
--- OUTSIDE RECORDS SUMMARY | 2025-06-23 11:43 | XMS_ITS | Encounter Summary ---
Author Organization [facility] Address [address] [place] [address] Care Team Providers Care Bilingual Teacher Name Role Phone Roverto Arnold MD Primary Care Provider [phone] Encounter Details Date Type Department Care Team (Latest Contact Info) Description 08/24/2005 Outpatient Historical [facility] General and Trauma Surgery-[address] [place] [address] CAROTID ART OCCL-NO INFARCT (Primary Dx); PERIPH VASCULAR DIS NOS; DIABETES MELLITUS TYPE II-UNCOMPL (CMS/HCC); Pain in limb Social History Tobacco Use Types Packs/Day Years Used Date Smoking Tobacco: Never Assessed Comments Unknown Sex and Gender Information Value Date Recorded Sex Assigned at Not on file Legal Sex Female 2:56 AM FROZEN MEAT CUTTER Gender Identity Not on file Sexual Orientation Not on file documented as of this encounter Plan of Treatment Not on file documented as of this encounter Visit Diagnoses Diagnosis Occlusion and stenosis of carotid artery without mention of cerebral infarction- Primary Peripheral vascular disease, unspecified Type II or unspecified type diabetes mellitus without mention of complication, not stated as uncontrolled Pain in limb Pain in soft tissues of limb documented in this encounter Additional Health Concerns Infection Onset Date Last Indicated Resolved Time R/O COVID-19 09/16/2020 09/16/2020 09/16/2020 11:3 5 PM FROZEN MEAT CUTTER COVID-19 09/17/2020 09/17/2020 10/07/2020 8:08 PM FROZEN MEAT CUTTER documented as of this encounter Care Teams Bilingual Teacher Relationship Specialty Start Date End Date Roverto Arnold MD [address] [place] [address] PCP - General 12/10/09 documented as of this encounter
--- OUTSIDE RECORDS SUMMARY | 2025-06-23 11:43 | XMS_ITS | Encounter Summary ---
Author Organization [facility] Address [address] [place] [address] Care Team Providers Care 8Th Grade Mathematics Teacher Name Role Phone Roverto Arnold MD Primary Care Provider Encounter Details Date Type Department Care Team (Latest Contact Info) Description 04/21/2021 Ancillary Orders [place] Pre-Registration [place] CALL TO MAKE APPOINTMENT ONLY [address] [place] [address] Marie Askew NP [address] [place] [address] Asymptomatic menopause Social History Tobacco Use Types Packs/Day Years Used Date Smoking Tobacco: Former Cigarettes 4 30 0 07/06/1958 - 07/06/1988 Smokeless Tobacco: Never Alcohol Use Standard Drinks/Week Comments No 0 (1 standard drink = 0.6 oz pur e alcohol) Comments No Sex and Gender Information Value Date Recorded Sex Assigned at Not on file Legal Sex Female 2:56 AM BI SOLUTIONS ARCHITECT Gender Identity Not on file Sexual Orientation Not on file Occupation Industry Job Start Date Job End Date Not on file Not on file Not on file Not on file documented as of this encounter Plan of Treatment Not on file documented as of this encounter Visit Diagnoses Diagnosis Asymptomatic menopause documented in this encounter Care Teams 8Th Grade Mathematics Teacher Relationship Specialty Start Date End Date Roverto Arnold MD [address] [place] [address] PCP - General 12/10/09 documented as of this encounter
--- OUTSIDE RECORDS SUMMARY | 2025-06-23 11:43 | XMS_ITS | Encounter Summary ---
Author Organization [facility] Address [address] [place] [address] Care Team Providers Care Radiation Control Worker Name Role Phone Roverto Arnold MD Primary Care Provider [phone] Encounter Details Date Type Department Care Team (Late st Contact Info) Description 10/23/2004 Inpatient Historical [facility] IN [facility] Charli Barahona MD NO ADDRESS ON FILE CORONARY ATHEROSCLER UNSPEC VESSEL (Primary Dx) Social History Tobacco Use Types Packs/Day Years Used Date Smoking Tobacco: Never Assessed Comments Unknown Sex and Gender Information Value Date Recorded Sex Assigned at Not on file Legal Sex Female 2:56 AM NET WPF DEVELOPER Gender Identity Not on file Sexual Orientation Not on file documented as of this encounter Plan of Treatment Not on file documented as of this encounter Procedures Procedure Name Priority Date/Time Associated Diagnosis Comments POC GLUCOSE Routine 10/25/2004 5:43 AM NET WPF DEVELOPER POC GLUCOSE Routine 10/24/2004 5:17 PM NET WPF DEVELOPER documented in this encounter Results * (ABNORMAL) POC GLUCOSE (10/25/2004 5:43 AM NET WPF DEVELOPER) GLUCOSE POC 108(H) 60 - 100 mg/dL INTERFACE SYSTEM 10/25/2004 5:43 AM NET WPF DEVELOPER us Charli Barahona MD POINT OF CARE TESTING Jessica l Result INTERFACE SYSTEM Refer to clinic/hospital department * POC GLUCOSE (10/24/2004 5:17 PM NET WPF DEVELOPER) GLUCOSE POC 94 60 - 100 mg/dL INTERFACE SYSTEM 10/24/2004 5:17 PM NET WPF DEVELOPER Charli Barahona MD POINT OF CARE TESTING Jessica l Result Performing Organization Address [facility] Co de Phone Number INTERFACE SYSTEM Refer to clinic/hospital department documented in this encounter Visit Diagnoses Diagnosis Coronary atherosclerosis of unspecified type of vessel, [place] or graft- Primary documented in this encounter Additional Health Concerns Infection Onset Date Last Indicated Resolved Time R/O COVID-19 09/16/2020 09/16/2020 09/16/2020 11:3 5 PM NET WPF DEVELOPER COVID-19 09/17/2020 09/17/2020 10/07/2020 8:08 PM NET WPF DEVELOPER documented as of this encounter Care Teams Radiation Control Worker Relationship Specialty Start Date End Date Roverto Arnold MD [address] [place] [address] PCP - General 12/10/09 documented as of this encounter
--- OUTSIDE RECORDS SUMMARY | 2025-06-23 11:43 | XMS_ITS | Encounter Summary ---
Author Organization [facility] Address [address] [place] [address] Care Team Providers Care Documentation Writer Name Role Phone Roverto Arnold MD Primary Care Provider [phone] Encounter Details Date Type Department Care Team (Latest Contact Info) Description 12/16/2004 Outpatient Historical [facility] Cardiac Seasonal Greenery Bundler [address] [place] [address] Charli Barahona MD NO ADDRESS ON FILE CORON ATHEROSCL [place] CORON VESSEL (Primary Dx) Social History Tobacco Use Types Packs/Day Years Used Date Smoking Tobacco: Never Assessed Comments Unknown Sex and Gender Information Value Date Recorded Sex Assigned at Not on file Legal Sex Female 2:56 AM COORDINATE MEASURING MACHINE TECHNICIAN Gender Identity Not on file Sexual Orientation Not on file documented as of this encounter Plan of Treatment Not on file documented as of this encounter Procedures Procedure Name Priority Date/Time Associated Diagnosis Comments PT AND APTT Routine 12/16/2004 9:12 AM COORDINATE MEASURING MACHINE TECHNICIAN CBC WITHOUT DIFFERENTIAL Routine 12/16/2004 9:12 AM COORDINATE MEASURING MACHINE TECHNICIAN BASIC METABOLIC PANEL Routine 12/16/2004 9:12 AM COORDINATE MEASURING MACHINE TECHNICIAN documented in this encounter Results * PT AND APTT (12/16/2004 9:12 AM COORDINATE MEASURING MACHINE TECHNICIAN) PROTIME 13.1 12.4 - 14.9 Secs INTERFACE SYSTEM Comment: As of 04 note change in normal range. INR 0.9 INTERFACE SYSTEM Comment: Expected Values for INR: DVT/PE Goal INR 2.5; range 2.0 - 3.0 Valve Replacement Tissue Goal INR 2.5; range 2.0 - 3.0 Mechanical Goal INR 3.0; range 2.5 - 3.5 POST-MT Goal INR 2.5; range 2.0 - 3.0 or Goal 3.0; range 2.5 - 3.5 Atrial Fibrillation Goal INR 2.5; range 2.0 - 3.0 Ischemic Stroke Goal INR 2.5; range 2.0 - 3.0 For additional information see Guidelines for Anticoagulation available from the pharmacy [facility] PTT 28.0 24.3 - 37.5 Secs INTERFACE SYSTEM Comment:Therapeutic Range: 12/16/2004 9:12 AM COORDINATE MEASURING MACHINE TECHNICIAN Charli Barahona MD HEMATOLOGY ORDERABLES Jessica l Result INTERFACE SYSTEM Refer to clinic/hospital department * (ABNORMAL) CBC WITHOUT DIFFERENTIAL (12/16/2004 9:12 AM COORDINATE MEASURING MACHINE TECHNICIAN) [facility] WBC 4.4(L) 4.8 - 10.8 K/ul INTERFACE SYSTEM RBC 4.35 4.20 - 5.40 Mil/ul INTERFACE SYSTEM HEMOGLOBIN 13.0 12.0 - 16.0 g/dL INTERFACE SYSTEM HEMATOCRIT 38.8 36.0 - 46.0 % INTERFACE SYSTEM MCV 89.2 84.0 - 103.0 Fl INTERFACE SYSTEM MCH 29.9 27.0 - 34.0 pg INTERFACE SYSTEM MCHC 33.5 30.0 - 35.0 g/dL INTERFACE SYSTEM RDW 12.9 11.0 - 14.5 percent(in active) INTERFACE SYSTEM PLATELETS 216 140 - 440 K/ul INTERFACE SYSTEM MPV 10.5 8.9 - 12.8 Fl INTERFACE SYSTEM NEUTROPHILS 51.2 42.2 - 75.2 percent(in active) INTERFACE SYSTEM LYMPHOCYTES 35.1 24.0 - 44.0 percent(in active) INTERFACE SYSTEM MONOCYTES 9.3 2.0 - 10.0 percent(in active) INTERFACE SYSTEM EOSINOPHILS 3.9 0.0 - 7.0 % INTERFACE SYSTEM BASOPHILS 0.5 0.0 - 1.0 percent(in active) INTERFACE SYSTEM NEUTROPHIL ABSOLUTE 2.3 2.0 - 8.0 K/uL INTERFACE SYSTEM LYMPHOCYTE ABSOLUTE 1.5 1.2 - 4.0 K/ul INTERFACE SYSTEM MONOCYTE ABSOLUTE 0.4 0.1 - 0.6 K/ul INTERFACE SYSTEM EOSINOPHIL ABSOLUTE 0.2 0.0 - 0.7 K/ul INTERFACE SYSTEM BASOPHILS ABSOLUTE 0.0 0.0 - 0.2 K/ul INTERFACE SYSTEM 12/16/2004 9:12 AM COORDINATE MEASURING MACHINE TECHNICIAN Charli Barahona MD HEMATOLOGY ORDERABLES Jessica l Result Performing Organization Address [facility] Co de Phone Number INTERFACE SYSTEM Refer to clinic/hospital department * (ABNORMAL) BASIC METABOLIC PANEL (12/16/2004 9:12 AM COORDINATE MEASURING MACHINE TECHNICIAN) GLUCOSE 112(H) 70 - 110 mg/dL INTERFACE SYSTEM BUN 15 7 - 17 mg/dL INTERFACE SYSTEM CREATININE 0.9 0.7 - 1.2 mg/dL (inactive) INTERFACE SYSTEM SODIUM 143 136 - 145 mEq/L INTERFACE SYSTEM POTASSIUM 4.0 3.5 - 5.0 mEq/L INTERFACE SYSTEM CHLORIDE 107 95 - 110 mEq/L INTERFACE SYSTEM CO2 28 22 - 32 mmol/l INTERFACE SYSTEM ANION GAP 12 9 - 20 mEq/L INTERFACE SYSTEM OSMOLALITY, CALCULATED 295 275 - 295 mOsm/Kg INTERFACE SYSTEM CALCIUM 9.0 8.4 - 10.5 mg/dL INTERFACE SYSTEM 12/16/2004 9:12 AM COORDINATE MEASURING MACHINE TECHNICIAN Charli Barahona MD CHEMISTRY ORDERABLES Final Result Performing Organization Address [facility] Co de Phone Number INTERFACE SYSTEM Refer to clinic/hospital department documented in this encounter Visit Diagnoses Diagnosis Coronary atherosclerosis of minto coronary artery- Primary documented in this encounter Additional Health Concerns Infection Onset Date Last Indicated Resolved Time R/O COVID-19 09/16/2020 09/16/2020 09/16/2020 11:3 5 PM COORDINATE MEASURING MACHINE TECHNICIAN COVID-19 09/17/2020 09/17/2020 10/07/2020 8:08 PM COORDINATE MEASURING MACHINE TECHNICIAN documented as of this encounter Care Teams Documentation Writer Relationship Specialty Start Date End Date Roverto Arnold MD [address] [place] [address] PCP - General 12/10/09 documented as of this encounter
--- OUTSIDE RECORDS SUMMARY | 2025-06-23 11:43 | XMS_ITS | Encounter Summary ---
Author Organization [facility] Address [address] [place] [address] Care Team Providers Care Foreign Banknote Teller Trader Name Role Phone Roverto Arnold MD Primary Care Provider Encounter Details Date Type Department Care Team (Latest Contact Info) Description 08/24/2005 Outpatient Historical [facility] Cardiovascular Services [address] [place] [address] Markie Ramírez MD NO ADDRESS ON FILE CAROTID ART OCCL-NO INFARCT (Primary Dx) Social History Tobacco Use Types Packs/Day Years Used Date Smoking Tobacco: Never Assessed Comments Unknown Sex and Gender Information Value Date Recorded Sex Assigned at Not on file Legal Sex Female 2:56 AM PIN DRAFTER OPERATOR Gender Identity Not on file Sexual Orientation Not on file documented as of this encounter Plan of Treatment Not on file documented as of this encounter Visit Diagnoses Diagnosis Occlusion and stenosis of carotid artery without mention of cerebral infarction- Primary documented in this encounter Additional Health Concerns Infection Onset Date Last Indicated Resolved Time R/O COVID-19 09/16/2020 09/16/2020 09/16/2020 11:3 5 PM PIN DRAFTER OPERATOR COVID-19 09/17/2020 09/17/2020 10/07/2020 8:08 PM PIN DRAFTER OPERATOR documented as of this encounter Care Teams Foreign Banknote Teller Trader Relationship Specialty Start Date End Date Roverto Arnold MD [address] [place] [address] PCP - General 12/10/09 documented as of this encounter
--- OUTSIDE RECORDS SUMMARY | 2025-06-23 11:43 | XMS_ITS | Encounter Summary ---
Author Organization [facility] Address [address] [place] [address] Care Team Providers Care Master Control Operator Name Role Phone Roverto Arnold MD Primary Care Provider [phone] Reason for Referral * Outpatient Services (Routine) - Closed Specialty Diagnoses / Procedures Referred By Contac t Referred To Contact Radiology Diagnoses Goiter, unspecified Procedures US HEAD NECK TISSUES Marie Askew NP [address] [place] [address] Phone: tel: fax: [facility] Ultrasound [address] [place] [address] Phone: tel: fax: Referral ID Status Reason Start Date Expiration Date V isits Requested Visits Authorized [id number] Closed [facility] TO SCHEDULE ([facility]) 01/23/2013 02/23/2014 1 1 Encounter Details Date Type Department Care Team (Latest Contact Info) Description 01/23/2013 Ancillary Orders [facility] Pre-Registration [place] CALL TO MAKE APPOINTMENT ONLY [address] [place] [address] Marie Askew NP [address] [place] [address] Goiter, unspecified (Primary Dx) Social History Tobacco Use Types Packs/Day Years Used Date Smoking Tobacco: Former Cigarettes 4 30 0 07/06/1958 - 07/06/1988 Smokeless Tobacco: Never Alcohol Use Standard Drinks/Week Comments No 0 (1 standard drink = 0.6 oz pur e alcohol) Comments No Sex and Gender Information Value Date Recorded Sex Assigned at Not on file Legal Sex Female 2:56 AM BRICK CLEANER Gender Identity Not on file Sexual Orientation Not on file documented as of this encounter Plan of Treatment Not on file documented as of this encounter Results * US HEAD NECK TISSUES (01/31/2013 1:20 PM CDT) Anatomical Region Laterality Modality Head Ultrasound 01/31/2013 12:5 4 PM CDT Impressions 01/31/2013 6:10 PM CDT IMPRESSION: See report below. Exam: US NECK TISSUES Date/Time of Exam: Jan 31, 2013 01:20:00 PM Reason For Exam: Goiter, unspecified. Comparisons: None. Findings: Right thyroid gland measures 4.3 x 1.3 x 1.0 cm for a volume of 2.7 mL. Left thyroid gland measures 3.9 x 0.9 x 1.0 cm for a volume of 1.8 mL. No thyroid nodules or masses are seen. No lymphadenopathy is identified. Impressions: 1. Unremarkable examination. rli - uploaded from [employer] - Narrative Procedure Note Mick Ferreira MD - 01/31/2013 IMPRESSION IMPRESSION: See report below. Exam: US NECK TISSUES Date/Time of Exam: Jan 31, 2013 01:20:00 PM Reason For Exam: Goiter, unspecified. Comparisons: None. Findings: Right thyroid gland measures 4.3 x 1.3 x 1.0 cm for a volume of 2.7 mL. Left thyroid gland measures 3.9 x 0.9 x 1.0 cm for a volume of 1.8 mL. No thyroid nodules or masses are seen. No lymphadenopathy is identified. Impressions: 1. Unremarkable examination. rli - uploaded from [employer] - us Marie Askew NON GARMENT SEWING MACHINE OPERATOR US ORDERABLES Final Res ult documented in this encounter Visit Diagnoses Diagnosis Goiter, unspecified- Primary Goiter, unspecified documented in this encounter Additional Health Concerns Infection Onset Date Last Indicated Resolved Time R/O COVID-19 09/16/2020 09/16/2020 09/16/2020 11:3 5 PM BRICK CLEANER COVID-19 09/17/2020 09/17/2020 10/07/2020 8:08 PM BRICK CLEANER documented as of this encounter Care Teams Master Control Operator Relationship Specialty Start Date End Date Roverto Arnold MD [address] [place] [address] PCP - General 12/10/09 documented as of this encounter
--- OUTSIDE RECORDS SUMMARY | 2025-06-23 11:43 | XMS_ITS | Encounter Summary ---
Author Organization [facility] Address [address] [place] [address] Care Team Providers Care Traffic Signal Supervisor Maintenance Name Role Phone Roverto Arnold MD Primary Care Provider [phone] Encounter Details Date Type Department Care Team (Latest Contact Info) Description 02/09/2006 Outpatient Historical [facility] Cardiovascular Services [address] [place] [address] Markie Ramírez MD NO ADDRESS ON FILE Generalized and Unspecified Atherosclerosis (Primary Dx) Social History Tobacco Use Types Packs/Day Years Used Date Smoking Tobacco: Never Assessed Comments Unknown Sex and Gender Information Value Date Recorded Sex Assigned at Not on file Legal Sex Female 2:56 AM SALES ADMINISTRATION MANAGER Gender Identity Not on file Sexual Orientation Not on file documented as of this encounter Plan of Treatment Not on file documented as of this encounter Visit Diagnoses Diagnosis Generalized and unspecified atherosclerosis- Primary documented in this encounter Additional Health Concerns Infection Onset Date Last Indicated Resolved Time R/O COVID-19 09/16/2020 09/16/2020 09/16/2020 11:3 5 PM SALES ADMINISTRATION MANAGER COVID-19 09/17/2020 09/17/2020 10/07/2020 8:08 PM SALES ADMINISTRATION MANAGER documented as of this encounter Care Teams Traffic Signal Supervisor Maintenance Relationship Specialty Start Date End Date Roverto Arnold MD [address] [place] [address] PCP - General 12/10/09 documented as of this encounter
--- OUTSIDE RECORDS SUMMARY | 2025-06-23 11:44 | XMS_ITS | Encounter Summary ---
Author Organization [facility] Address [address]: [place] [address] Care Team Providers Care Roving Department End Finder Name Role Phone Roverto Arnold MD Primary Care Provider [phone] Encounter Details Date Type Department Care Team (Late st Contact Info) Description 01/17/2002 Outpatient Historical Yuan Plata MD NO ADDRESS ON FILE Social History Tobacco Use Types Packs/Day Years Used Date Smoking Tobacco: Never Assessed Comments Unknown Sex and Gender Information Value Date Recorded Sex Assigned at Not on file Legal Sex Female 2:56 AM HOSPITAL INTERN Gender Identity Not on file Sexual Orientation Not on file documented as of this encounter Plan of Treatment Not on file documented as of this encounter Visit Diagnoses Not on filedocumented in this encounter Additional Health Concerns Infection Onset Date Last Indicated Resolved Time R/O COVID-19 09/16/2020 09/16/2020 09/16/2020 11:3 5 PM HOSPITAL INTERN COVID-19 09/17/2020 09/17/2020 10/07/2020 8:08 PM HOSPITAL INTERN documented as of this encounter Care Teams Roving Department End Finder Relationship Specialty Start Date End Date Roverto Arnold MD [address] [facility] [place] [address] PCP - General 12/10/09 documented as of this encounter
--- OUTSIDE RECORDS SUMMARY | 2025-06-23 11:44 | XMS_ITS | Encounter Summary ---
Author Organization [facility] Address [address] [place] [address] Care Team Providers Care Retail Analytics Manager Name Role Phone Roverto Arnold MD Primary Care Provider [phone] Encounter Details Date Type Department Care Team (Latest Contact Info) Description 01/16/2002 Outpatient Historical [facility] [address] [place] [address] Yuan Plata MD NO ADDRESS ON FILE OTHER UNSPEC SLEEP APNEA (Primary Dx) Social History Tobacco Use Types Packs/Day Years Used Date Smoking Tobacco: Never Assessed Comments Unknown Sex and Gender Information Value Date Recorded Sex Assigned at Not on file Legal Sex Female 2:56 AM PHYSICIAN CREDENTIALING SPECIALIST Gender Identity Not on file Sexual Orientation Not on file documented as of this encounter Plan of Treatment Not on file documented as of this encounter Visit Diagnoses Diagnosis Unspecified sleep apnea- Primary documented in this encounter Additional Health Concerns Infection Onset Date Last Indicated Resolved Time R/O COVID-19 09/16/2020 09/16/2020 09/16/2020 11:3 5 PM PHYSICIAN CREDENTIALING SPECIALIST COVID-19 09/17/2020 09/17/2020 10/07/2020 8:08 PM PHYSICIAN CREDENTIALING SPECIALIST documented as of this encounter Care Teams Retail Analytics Manager Relationship Specialty Start Date End Date Roverto Arnold MD [address] [place], [place] [address] PCP - General 12/10/09 documented as of this encounter
--- OUTSIDE RECORDS SUMMARY | 2025-06-23 11:44 | XMS_ITS | Encounter Summary ---
Author Organization [facility] Address [address]: [place] [address] Care Team Providers Care Tree Warden Name Role Phone Roverto Arnold MD Primary Care Provider [phone] Encounter Details Date Type Department Care Team (Late st Contact Info) Description 12/30/2000 Outpatient Historical Charli Barahona MD NO ADDRESS ON FILE Social History Tobacco Use Types Packs/Day Years Used Date Smoking Tobacco: Never Assessed Comments Unknown Sex and Gender Information Value Date Recorded Sex Assigned at Not on file Legal Sex Female 2:56 AM RN DOCUMENTATION Gender Identity Not on file Sexual Orientation Not on file documented as of this encounter Plan of Treatment Not on file documented as of this encounter Visit Diagnoses Not on filedocumented in this encounter Additional Health Concerns Infection Onset Date Last Indicated Resolved Time R/O COVID-19 09/16/2020 09/16/2020 09/16/2020 11:3 5 PM RN DOCUMENTATION COVID-19 09/17/2020 09/17/2020 10/07/2020 8:08 PM RN DOCUMENTATION documented as of this encounter Care Teams Tree Warden Relationship Specialty Start Date End Date Roverto Arnold MD [address] [place] [facility] [place] [address] PCP - General 12/10/09 documented as of this encounter
--- OUTSIDE RECORDS SUMMARY | 2025-06-23 11:44 | XMS_ITS | Encounter Summary ---
Author Organization [facility] Address [address] [place] [address] Care Team Providers Care Java J2Ee Technical Lead Name Role Phone Roverto Arnold MD Primary Care Provider [phone] Encounter Details Date Type Department Care Team (Latest Contact Info) Description 06/01/2001 Outpatient Historical [facility] Breast [facility] [address] [place] [address] Natasha Avelar MD NO ADDRESS ON FILE Other screening mammogram (Primary Dx) Social History Tobacco Use Types Packs/Day Years Used Date Smoking Tobacco: Never Assessed Comments Unknown Sex and Gender Information Value Date Recorded Sex Assigned at Not on file Legal Sex Female 2:56 AM STRIKER OUT Gender Identity Not on file Sexual Orientation Not on file documented as of this encounter Plan of Treatment Not on file documented as of this encounter Visit Diagnoses Diagnosis Other screening mammogram- Primary documented in this encounter Additional Health Concerns Infection Onset Date Last Indicated Resolved Time R/O COVID-19 09/16/2020 09/16/2020 09/16/2020 11:3 5 PM STRIKER OUT COVID-19 09/17/2020 09/17/2020 10/07/2020 8:08 PM STRIKER OUT documented as of this encounter Care Teams Java J2Ee Technical Lead Relationship Specialty Start Date End Date Roverto Arnold MD [address] [place] [address] PCP - General 12/10/09 documented as of this encounter
--- OUTSIDE RECORDS SUMMARY | 2025-06-23 11:44 | XMS_ITS | Clinical Summary ---
Author Organization [facility] de Address [address] [place] [address] Phone Care Team Providers Care Mash Grinder Name Role Phone Roverto Arnold MD Primary Care Provider [phone] Allergies Active Allergy Reactions Criticality Noted Date Comments Codeine Nausea and Vomiting Low 08/23/2014 Epinephrine Base Other (See Comments) High 9 Burning in lungs Hydrocodone Itching Low 08/23/2014 Morphine Weakness High 01/03/2009 Causes sweating and pain all over Unclassified Drug Other (See Comments) High 01/04/20 09 Burning in lungs Medications insulin detemir U-100 (LEVEMIR) 100 unit/mL pen syringe Inject 25 units in the morning and 40 untis at night 3 mL 04/27/20 20 Active simethicone (GAS-X ORAL) Take by mouth daily. 2 chewables prn 06/13/20 20 Active pantoprazole (PROTONIX) 40 mg Tablet, Delayed Release (E.C.) Take 40 mg by mouth daily. 12/06/19 19 Active ranolazine ER (RANEXA) 500 mg Extended Release 12 hour tablet TAKE 1 TABLET(500 MG) BY MOUTH EVERY 12 HOURS 180 Tablet 1 03/16/20 19 Active oxygen home delivery Home Oxygen Concentrator yes at 3 L/M Rest, 4 L/M Activity, 3 L/M Sleep, Delivery Device: Nasal CannulaPortabil ity: yes, 3 L/M Rest, 4 L/M Activity, May provide device best for patient needs(E system,home fill, conserving device)Length of Need: 99 months 1 Each 0 09/21/20 20 Active isosorbide mononitrate (IMDUR) 60 mg Extended Release 24 hour tablet Take 1 Tablet (60 mg) by mouth daily in the morning. 135 Tablet 1 02/07/20 21 Active levothyroxine 50 mcg tablet Take 50 mcg by mouth daily. Active aspirin 81 mg tablet,delayed release Take 81 mg by mouth daily. Active temazepam (RESTORIL) 15 mg capsule 02/25/20 22 Active magnesium oxide (MAG-OX) 400 mg (241.3 mg magnesium) tablet Take 400 mg by mouth daily. 12/22/19 17 Active cetirizine (ZyrTEC) 10 mg tablet Take 10 mg by mouth daily. 12/22/19 17 Active furosemide (LASIX) 20 mg tablet Take 20 mg by mouth daily. 05/28/20 16 Active Additional Information Patient taking differently:20 mg Oral DAILY,prn, Reported on 04/22/2023 busPIRone 10 mg tablet Take 10 mg by mouth 2 times daily. Active escitalopram 10 mg tablet Take 20 mg by mouth daily. Active isosorbide mononitrate (IMDUR) 60 mg Extended Release 24 hour tablet Take 1 Tablet (60 mg) by mouth 2 times daily. 30 Tablet 11/14/19 23 Active nitroglycerin (NITROSTAT) 0.4 mg Tablet, Sublingual Place 1 Tablet (0.4 mg) under tongue every 5 minutes as needed for Chest Pain. 30 Tablet 11/14/19 23 Active metoprolol tartrate (LOPRESSOR) 25 mg tablet Take 25 mg by mouth 2 times daily. Active Farxiga 10 mg Tablet Take 10 mg by mouth daily. 08/09/20 22 Active rosuvastatin (CRESTOR) 20 mg tablet Take 1 Tablet (20 mg) by mouth daily. 90 Tablet 3 09/20/20 23 Active diltiaZEM (CARDIZEM CD) 120 mg Controlled Delivery 24 hour capsule take 1 capsule by mouth daily 100 Capsule 2 03/31/20 24 Active fenofibrate nanocrystallized (TRICOR) 145 mg tablet take 1 tablet by mouth daily 100 Tablet 2 03/31/20 24 Active clopidogreL (PLAVIX) 75 mg Tablet take 1 tablet by mouth daily 100 Tablet 2 03/30/20 24 Active Active Problems Problem Noted Date Diagnosed Date Positive cardiac stress test 11/13/2022 History of 2019 novel coronavirus disease (COVID -19) 10/27/2020 Acute on chronic respiratory failure with hypoxi a 09/16/2020 Pneumonia due to COVID-19 virus 09/16/2020 DM (diabetes mellitus), type 2 04/25/2020 Sleep apnea 04/25/2020 CKD (chronic kidney disease) 04/25/2020 Bilateral carotid artery stenosis 06/13/2019 Stage 3 chronic kidney disease 03/01/2019 Overview (02/21/2021): Last Assessment & Plan: GFR stable over time. No changes at this time. BP controlled. See back in 6 months. Patient is aware of CKD and current GFR. Patient is aware of importance of adequate fluid intake, low sodium diet and avoiding NSAID's. Leukopenia 01/17/2018 S/P drug eluting coronary stent placement 2014 On home O2 02/08/2015 Overview (02/20/2021): 2 L during the day and CPAP at night Syncope 02/07/2015 Expressive aphasia 02/07/2015 Hypotension 02/07/2015 Hypothyroidism 02/07/2015 Dehydration 02/07/2015 Encounter for long-term (current) use of other m edications 04/21/2013 Mixed hyperlipidemia 07/09/2011 Cerebrovascular disease 07/09/2011 Status post four vessel coronary artery bypass 0 07/09/2011 Chronic ischemic heart disease 06/10/2010 GERD (gastroesophageal reflux disease) 0 MOMO (generalized anxiety disorder) 06/10/2010 PVD (peripheral vascular disease) 06/10/2010 SVETLANA on CPAP 03/21/2010 Postoperative hemorrhage inv olving circulatory system following cardiac catheterization Benign essential hypertension ASHD (arteriosclerotic heart disease) Resolved Problems Problem Noted Date Diagnosed Date Resolved Date Angina, class III 02/06/2021 02/06/2021 NSTEMI (non-ST elevated myoc ardial infarction) 09/07/2020 09/09/2020 Stable angina 06/18/2020 02/06/2021 Chest discomfort 04/25/2020 06/13/2020 Unstable angina 04/24/2020 06/13/2020 Overview (02/19/2021): Added automatically from request for surgery [id number] Unstable angina 12/06/2018 06/10/2019 Abnormal coronary angiogram 06/19/2015 06/10/2019 Chest pain 06/19/2015 11/14/2022 Acute renal failure 02/07/2015 06/13/20 19 Hemorrhagic shock 10/27/2020 Acute coronary syndrome 12/2020 Immunizations Immunization Administration Dates Next Due (PREVNAR 13)(6 WKS UP) PNEUM OCOCCAL CONJUGATE (PCV13) 0.5 ML, IM 02/27/2008 Influenza Seasonal Unspecified Formulation IM Family History Medical History Relation Name Comments Colon Cancer Neg Hx Social History Tobacco Use Types Packs/Day Years Used Date Smoking Tobacco: Former Cigarettes Q uit: 07/06/1988 Smokeless Tobacco: Never Tobacco Cessation:Counseling Given: Not Answered Alcohol Use Standard Drinks/Week Comments No 0 (1 standard drink = 0.6 oz pur e alcohol) Feeling Safe Answer Date Recorded Are you in a relationship wi th someone who hurts you emotionally and/or physically? 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 Gender Identity Not on file Sexual Orientation Not on file Last Filed Vital Signs Vital Sign Reading Time Taken Comments Blood Pressure 105/42 08/09/2023 2:10 PM CDT Pulse 62 08/09/2023 2:10 PM CDT Temperature 36.1 C (97 F) 11/14/2022 7:53 AM ASSEMBLER BRAZER Respiratory Rate 18 08/09/2023 2:10 PM CDT Oxygen Saturation 95% 08/09/2023 2:10 PM CDT Inhaled Oxygen Concentration - - Weight 55.8 kg (123 lb) 08/03/2023 2:32 PM CDT Height 157.5 cm (5' 2 ) 08/03/2023 2:32 PM CDT Body Mass Index 22.5 08/03/2023 2:32 PM CDT Plan of Treatment Health Maintenance Due Date Last Done Comments DIABETES ANNUAL FOOT EXAM 1962 DIABETES ANNUAL RETINAL EXAM 1962 DIABETES MICROALBUMIN ANNUAL SCREEN 1962 DTAP/TDAP/TD VACCINES (1 - Tdap) 1963 ZOSTER VACCINE (1 of 2) 1994 PNEUMOCOCCAL VACCINE 50+ YEA RS (2 of 2 - PPSV23, PCV20, or PCV21) 04/23/2008 02/27/2008 RSV VACCINE (60+ or ) (1 - 1-dose 75+ series) 2019 LDL CHOLESTEROL ANNUAL 02/04/2022 1, 08/28/2019, 12/01/2018, Additional history exists DIABETES HBA1C Q 6 MONTHS 02/28/20242022, 05/10/2019, 12/06/2018, Additional history exists INFLUENZA VACCINE (#1) 2025 9, 05/25/2017, 06/25/2016, Additional history exists OSTEOPOROSIS SCREENING 05/27/2026 05/27/2021 COLORECTAL SCREENING Discontinued 08/09/2023, 08/09/20 23 Colorectal Cancer Screening Discontinued FIT-DNA Q 3 years Discontinued FIT/FOBT Q 1 year Discontinued Flex Sig/CT Colonography Q 5 years Discontinued Medical Devices Implanted Type Area Java Application Developer Device Identifier Shelf Expiration Date Model / Serial / Lot Sealant Progel Pleural 4ml [id number] - [id number] Implanted:Qt y: 1 on 02/20/2013 by Fabio Islas MD Biological N/A: Chest CR BARD- DAVOL INC 09/22/2014 [id number] / / [id number] Sealant Mynx Yarn Washer 6-7fr [id number] - [id number] Implanted: (Quantity not on file) Closure Device Right: Groin ACCESS CLOSURE 01/22/2022 [id number] / / [id number] Closure Perclose Proglide [id number] - [id number] Implanted:Qt y: 1 on 02/05/2021 Closure Device Right: Groin DUDLEY- VASC DEVICE 10/24/2022 [id number] / / [id number] [place] Ptfe Thck 1.6mmx2.5x10 .2cm [id number] - [id number] Implanted:Qt y: 1 on 02/20/2013 by Fabio Islas MD Graft N/A: Chest CR BARD- GUILLERMO VASC INC 08/22/2017 [id number] / / [id number] [place] Ptfe Thck 1.6mmx2.5x2. 5cm [id number] - [id number] Implanted:Qt y: 1 on 02/20/2013 Graft CR BARD- GUILLERMO VASC INC 12/22/2017 [id number] / / [id number] Sealant Floseal W/ Adptr 10ml [id number] - [id number] Implanted:Qt y: 1 on 02/20/2013 by Fabio Islas MD Sealant N/A: Chest LOPES- BIOSCIENCE 02/20/2014 [id number] / / [id number] Sealant Floseal W/ Adptr 10ml [id number] - [id number] Implanted:Qt y: 1 on 02/20/2013 by Niranjan Reilly MD Sealant LOPES- BIOSCIENCE 04/23/2014 [id number] / / [id number] Promus Premier 2.25x12 Implanted: (Quantity not on file) Stent Stent Synergy Mr 4.0x28mm Drug Elut [id number] - [id number] Implanted: (Quantity not on file) Stent Right: Coronary [employer]UL[employer] 09/12/2021 [id number] / / [id number] Stent Synergy Mr 4.0x12mm Drug Elut [id number] - [id number] Implanted:Qt y: 1 on 02/05/2021 by Bird Hernandez MD Stent Right: Coronary [employer] 08/27/2022 [id number] / / [id number] Stent Synergy Mr 4.0x8mm Drug Elut [id number] - [id number] Implanted:Qt y: 1 on 02/05/2021 by Bird Hernandez MD Stent Left: Coronary [employer] 08/05/2022 [id number] / / [id number] Stent Synergy Mr 2.5x16mm Drug Elut [id number] - [id number] Implanted:Qt y: 1 on 02/05/2021 by Bird Hernandez MD Stent Left: Coronary [employer] 09/11/2022 [id number] / / [id number] Marker Graft 1001-83 - [id number] Implanted:Qt y: 1 on 02/20/2013 by Fabio Islas MD N/A: Chest ROMAN INT 05/22/2016 1001-83 / / [id number] Explanted Type Area Java Application Developer Device Identifier Shelf Expiration Date Model / Serial / Lot Stent Graftmaster 4.5x19 Rx [id number] - [id number] Implanted:Qty: 1 Explanted:Qty: 1 on 04/26/2020 Stent Right: Coronary DUDLEY- VASC DEVICE 02/21/2021 [id number] / [id number] Description:inserted and rem chayo undeployed and intact Procedures Procedure Name Priority Date/Time Associated Diagnosis Comments COLONOSCOPY REPORT 08/09/2023 1: 56 PM CDT XR DEXA BONE DENSITY AXIAL 1 OR MORE SITES Routine 05/27/2021 12:09 PM CDT Asymptomatic menopause LIPID PANEL Routine 02/04/2021 8:33 AM CDT HEMOGLOBIN A1C Routine 05/10/2019 from Last 3 Months or Most Recently Relevant to Health Maintenance Results * COLONOSCOPY REPORT (08/09/2023 1:56 PM CDT) Narrative Procedure Note Barrera Chavis MD - 08/09/2023 1:56 PM CDT [facility] GI Patient Name: Yadira Evans Procedure Date: 08/09/2023 Date of : 1945 Admit Type: Outpatient Age: 77 Attending MD: Barrera Chavis MD, Procedure: Colonoscopy Indications: Generalized abdominal pain, Rectal bleeding, Anemia Providers: Barrera Chavis MD Referring MD: Roverto Arnold MD Medicines: Propofol per Anesthesia Complications: No immediate complications. Procedure: Pre-Anesthesia Assessment: - Prior to the procedure, a History and Physical was performed, and patient medications and allergies were reviewed. The patient's tolerance of previous anesthesia was also reviewed. The risks and benefits of the procedure and the sedation options and risks were discussed with the patient. All questions were answered, and informed consent was obtained. Prior Anticoagulants: The patient has taken no anticoagulant or antiplatelet agents. ASA Grade Assessment: III - A patient with severe systemic disease. After reviewing the risks and benefits, the patient was deemed in satisfactory condition to undergo the procedure. After I obtained informed consent, the scope was passed under direct vision. Throughout the procedure, the patient's blood pressure, pulse, and oxygen saturations were monitored continuously. The Colonoscope was introduced through the anus and advanced to the cecum, identified by appendiceal orifice and ileocecal valve. The colonoscopy was performed without difficulty. The patient tolerated the procedure well. The quality of the bowel preparation was good. The ileocecal valve, appendiceal orifice, and rectum were photographed. Estimated Blood Loss: Estimated blood loss was minimal. Findings: A 3 mm polyp was found in the cecum. The polyp was sessile. The polyp was removed with a cold snare. Resection and retrieval were complete. A 5 mm polyp was found in the ascending colon. The polyp was sessile. The polyp was removed with a cold snare. Resection and retrieval were complete. A 5 mm polyp was found in the transverse colon. The polyp was sessile. The polyp was removed with a cold snare. Resection and retrieval were complete. An 8 mm polyp was found in the sigmoid colon. The polyp was sessile. The polyp was removed with a cold snare. Resection and retrieval were complete. Internal hemorrhoids were found during retroflexion. The hemorrhoids were small. Impression: - One 3 mm polyp in the cecum, removed with a cold snare. Resected and retrieved. - One 5 mm polyp in the ascending colon, removed with a cold snare. Resected and retrieved. - One 5 mm polyp in the transverse colon, removed with a cold snare. Resected and retrieved. - One 8 mm polyp in the sigmoid colon, removed with a cold snare. Resected and retrieved. - Internal hemorrhoids. Recommendation: - Patient has a contact number available for emergencies. The signs and symptoms of potential delayed complications were discussed with the patient. Return to normal activities tomorrow. Written discharge instructions were provided to the patient. - Resume previous diet. - Continue present medications. - No repeat colonoscopy due to age. Barrera Chavis MD 08/09/2023 1:55:41 PM Number of Addenda: 0 Note Initiated On: 08/09/2023 1:29 PM Scope Withdrawal Time 0 hours 11 minutes 49 seconds Scope In: 1:33:49 PM Scope Out: 1:52:34 PM [address] [place], [place] Barrera Chavis MD GI PROCEDURE ORDERA BLES Final Result * XR DEXA BONE DENSITY AXIAL 1 OR MORE SITES (05/27/2021 12:09 PM CDT) Anatomical Region Laterality Modality Nuclear Medicine 05/27/2021 12:0 9 PM CDT Impressions 05/27/2021 8:49 PM CDT IMPRESSION: Abnormal examination Bone density lies in the osteopenic range in both proximal femurs just above the average the patient's age-matched control consistent with age-appropriate physiologic demineralization responsible for her osteopenia. NOF guidelines recommend consideration of FDA-approved medical therapies in patients with FRAX determined 10-year probabilities of hip/major osteoporosis-related fractures equal or greater than 3%/20% respectively. Consider assessing fracture risk using the FRAX analysis tool for guidance of clinical management available online at www.shef.ac.uk/FRAX/. Enter VoodooVox for Select DXA and the left Femoral Neck BMD value. Narrative 05/27/2021 8:49 PM CDT DEXA Evaluation of the Lumbar Spine and Left/Right Proximal Femur Reason for Consultation: Ovarian failure. Evaluation of bone mineral density. The following absorptiometry data were obtained. The quality of this examination is acceptable with regards to count density, processed images, data display and lack of important artifacts (including but not limited to motion and attenuation artifacts). Serial examination number 1. Lumbar spine images demonstrate scoliotic and degenerative changes resulting in spurious elevation of bone density. L1-L4 BMD (g/cm2): 1.327 Adult T-score: 1.1 Adult Z-score: 3.0 Left/right femoral neck BMD (g/cm2): 0.812/0.827 Adult T-score: -1.6/-1.5 Adult Z-score: 0.5/0.6 Left/right total hip BMD (g/cm2): 0.880/0.827 Adult T-score: -1.0/-1.4 Adult Z-score: 0.9/0.5 Procedure Note Sonnemaker, Bird E, MD - 05/27/2021 DEXA Evaluation of the Lumbar Spine and Left/Right Proximal Femur Reason for Consultation: Ovarian failure. Evaluation of bone mineral density. The following absorptiometry data were obtained. The quality of this examination is acceptable with regards to count density, processed images, data display and lack of important artifacts (including but not limited to motion and attenuation artifacts). Serial examination number 1. Lumbar spine images demonstrate scoliotic and degenerative changes resulting in spurious elevation of bone density. L1-L4 BMD (g/cm2): 1.327 Adult T-score: 1.1 Adult Z-score: 3.0 Left/right femoral neck BMD (g/cm2): 0.812/0.827 Adult T-score: -1.6/-1.5 Adult Z-score: 0.5/0.6 Left/right total hip BMD (g/cm2): 0.880/0.827 Adult T-score: -1.0/-1.4 Adult Z-score: 0.9/0.5 IMPRESSION: Abnormal examination Bone density lies in the osteopenic range in both proximal femurs just above the average the patient's age-matched control consistent with age-appropriate physiologic demineralization responsible for her osteopenia. NOF guidelines recommend consideration of FDA-approved medical therapies in patients with FRAX determined 10-year probabilities of hip/major osteoporosis-related fractures equal or greater than 3%/20% respectively. Consider assessing fracture risk using the FRAX analysis tool for guidance of clinical management available online at www.shef.ac.uk/FRAX/. Enter VoodooVox for Select DXA and the left Femoral Neck BMD value. Marie Askew NP DIAGNOSTIC IMAGING ORDERA BLES Final Result * (ABNORMAL) LIPID PANEL (02/04/2021 8:33 AM CDT) [facility] CHOLESTEROL 231(H) <200 mg/dL 02/04/2021 9:30 PM CDT [facility] TRIGLYCERIDE 493(H) <150 mg/dL 02/04/2021 9:30 PM CDT [facility] HDL 40 40 - 59 mg/dL 02/04/2021 9:30 PM CDT [facility] LDL CALCULATED ^ 02/04/2021 9:30 PM CDT [facility] Comment:Calculated LDL is no t accurate when the Triglyceride value exceeds 400. NON-HDL CHOLESTEROL 191(H) <130 mg/dL 02/04/2021 9:30 PM CDT [facility] Blood Venipuncture / Unknown 02/04/2021 8:33 AM CDT 02/04/2021 8:14 PM CDT Narrative [facility] - 02/04/2021 9:30 PM CDT TOTAL CHOLESTEROL mg/dL Desirable <200 Borderline high 200-239 High >=240 TRIGLYCERIDES mg/dL Normal <150 Borderline high 150-199 High 200-499 Very high >=500 HDL CHOLESTEROL mg/dL Low <40 Normal 40-59 Desirable >=60 NON HDL CHOLESTEROL mg/dL Optimal <130 Near Optimal 130-159 Borderline High 160-189 Very High >=190 CALCULATED LDL mg/dL LDL <70, OPTIMAL if have Atherosclerotic cardiovascular disease (ASCVD) or intermediate or higher (>7.5%) 10 year risk of ASCVD including most adults with diabetes. LDL <100, Optimal in adult patients with low (<7.5%) 10 year ASCVD risk LDL 100-160, Suboptimal LDL >160, High LDL >190, Very high ATPIII Guidelines Reference Ranges for Lipid Panels (NCEP/AMA) . Annamaria Lanza NP CHEMISTRY ORDERABLES Final Result [facility] CLIA# [id number] [address] [place] [address] * HEMOGLOBIN A1C (05/10/2019) ABSTRACTED HGB A1C 7.1 EXTERNAL LAB HEMOGLOBIN A1C ^ 4.7 - 6.4 % EXTERNAL LAB HEMOGLOBIN A1C EXTERNAL LAB GLUCOSE, MEAN BLOOD EXTERNAL LAB Blood 05/10/2019 Narrative EXTERNAL LAB - 05/11/2019 This order was created through External Result Entry us Marie Askew NP CHEMISTRY ORDERABLES Jessica l Result EXTERNAL LAB from Last 3 Months or Most Recently Relevant to Health Maintenance Insurance MEDICAID [facility] DUAL COMPLETE PPO [facility] [id number] * Guarantor: YADIRA EVANS Account Type Relation to Patient Date of Phone Billing Address Personal/Family [address] [place] [address] RX INFOCROSSING Medicaid RX [facility] Medicare Part D Advance Directives For more information, please contact: [phone] * Full Code (Latest Code Status on File) Date Activated Date Inactivated Comments 08/09/2023 11:49 AM 08/09/2023 4:21 PM * Full Code Date Activated Date Inactivated Comments 11/13/2022 2:55 PM 11/14/2022 1:26 PM * Full Code Date Activated Date Inactivated Comments 11/13/2022 2:55 PM 11/13/2022 2:55 PM * Full Code Date Activated Date Inactivated Comments 11/13/2022 11:21 AM 11/13/2022 2:55 PM * Full Code Date Activated Date Inactivated Comments 11/11/2022 9:42 PM 11/13/2022 11:21 AM Care Teams Mash Grinder Relationship Specialty Start Date End Date Roverto Arnold MD [facility] [place] [address] PCP - General 12/10/09
--- OUTSIDE RECORDS SUMMARY | 2025-06-23 11:44 | XMS_ITS | Encounter Summary ---
Author Organization [facility] Address [address] [place] [address] Care Team Providers Care Epic [employer] Specialists Name Role Phone Roverto Arnold MD Primary Care Provider [phone] Encounter Details Date Type Department Care Team (Latest Contact Info) Description 11/22/1998 Outpatient Historical [facility] Family Medicine Ramon[facility] [address] [facility] [address] [place] [address] Colten Mayer MD NO ADDRESS ON FILE Chest pain, unspecified (Primary Dx); Other and unspecified angina pectoris Social History Tobacco Use Types Packs/Day Years Used Date Smoking Tobacco: Never Assessed Comments Unknown Sex and Gender Information Value Date Recorded Sex Assigned at Not on file 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 Gender Identity Not on file Sexual Orientation Not on file documented as of this encounter Plan of Treatment Not on file documented as of this encounter Visit Diagnoses Diagnosis Chest pain, unspecified- Primary Other and unspecified angina pectoris documented in this encounter Additional Health Concerns Infection Onset Date Last Indicated Resolved Time R/O COVID-19 09/16/2020 09/16/2020 09/16/2020 11:3 5 PM FIREBOAT OPERATOR COVID-19 09/17/2020 09/17/2020 10/07/2020 8:08 PM FIREBOAT OPERATOR documented as of this encounter Care Teams Epic [employer] Relationship Specialty Start Date End Date Roverto Arnold MD [address] [place] [address] PCP - General 12/10/09 documented as of this encounter
--- OUTSIDE RECORDS SUMMARY | 2025-06-23 11:44 | XMS_ITS | Encounter Summary ---
Author Organization [facility] Address [address] [place] [address] Care Team Providers Care Body Former Name Role Phone Roverto Arnold MD Primary Care Provider [phone] Encounter Details Date Type Department Care Team (Latest Contact Info) Description 07/29/1998 Outpatient Historical [facility] Family Medicine Ramonita [facility] [address] [facility] [address] [place] [address] Colten Mayer MD NO ADDRESS ON FILE Other and unspecified hyperlipidemia (Primary Dx) Social History Tobacco Use Types Packs/Day Years Used Date Smoking Tobacco: Never Assessed Comments Unknown Sex and Gender Information Value Date Recorded Sex Assigned at Not on file Legal Sex Female 2:56 AM 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 Gender Identity Not on file Sexual Orientation Not on file documented as of this encounter Plan of Treatment Not on file documented as of this encounter Visit Diagnoses Diagnosis Other and unspecified hyperlipidemia- Primary documented in this encounter Additional Health Concerns Infection Onset Date Last Indicated Resolved Time R/O COVID-19 09/16/2020 09/16/2020 09/16/2020 11:3 5 PM 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 COVID-19 09/17/2020 09/17/2020 10/07/2020 8:08 PM 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 documented as of this encounter Care Teams Body Former Relationship Specialty Start Date End Date Roverto Arnold MD [address] [place] [address] PCP - General 12/10/09 documented as of this encounter
--- OUTSIDE RECORDS SUMMARY | 2025-06-23 11:44 | XMS_ITS | Encounter Summary ---
Author Organization [facility] Address [address] [place] [address] Care Team Providers Care Commissary Manager Name Role Phone Roverto Arnold MD Primary Care Provider [phone] Encounter Details Date Type Department Care Team (Latest Contact Info) Description 01/25/2007 Outpatient Historical [facility] [address] [place] [address] Bird Davis MD [address] [place] [address] Disorder of Bone and Cartilage, Unspecified (Primary Dx) Social History Tobacco Use Types Packs/Day Years Used Date Smoking Tobacco: Never Assessed Comments Unknown Sex and Gender Information Value Date Recorded Sex Assigned at Not on file Legal Sex Female 2:56 AM DIESEL LOCOMOTIVE FIRER/FIREMAN Gender Identity Not on file Sexual Orientation Not on file documented as of this encounter Plan of Treatment Not on file documented as of this encounter Procedures Procedure Name Priority Date/Time Associated Diagnosis Comments NM BONE SCAN WHOLE BODY Routine 01/25/2007 12:01 AM CDT documented in this encounter Results * NM BONE SCAN WHOLE BODY (01/25/2007 12:01 AM CDT) Anatomical Region Laterality Modality Other 01/25/2007 12:0 1 AM CDT Narrative 01/25/2007 12:01 AM CDT Bone Imaging, Whole Body: Radiopharmaceutical: Tc-99m HDP ([id number]) Dose: 21.4 mCiReason for Consultation: Diffuse bone pain. Evaluation for bony abnormalities. Total body bone images were obtained in the anterior and posterior projections. Evaluation of the spine reveals it to be relatively straight. Tracer distribution is relativelyuniform throughout the spine. No discrete focal abnormalities are noted. The ribs are all generallywithin normal limits. Tracer activity appears symmetric and physiologic throughout the pelvis. Thelong bones of both upper and lower extremities, both scapulae, clavicles, sternum and calvarium allappear unremarkable. Impression: I do not see evidence of this examination for the presence of metastatic neoplastic disease of theskeleton. - Dictated By: Jose Helton M.D. Electronically Signed By: Jose Helton M.D. Date Signed: 01/25/07 Procedure Note 09/14/2009 Bone Imaging, Whole Body: Radiopharmaceutical: Tc-99m HDP ([id number]) Dose: 21.4 mCiReason for Consultation: Diffuse bone pain. Evaluation for bony abnormalities. Total body bone images were obtained in the anterior and posteriorprojections. Evaluation of the spine reveals it to be relatively straight. Tracerdistribution is relativelyuniform throughout the spine. No discrete focal abnormalities are noted. The ribsare all generallywithin normal limits. Tracer activity appears symmetric and physiologic throughout thepelvis. Thelong bones of both upper and lower extremities, both scapulae, clavicles, sternum andcalvarium allappear unremarkable. Impression: I do not see evidence of this examination for the presence of metastaticneoplastic disease of theskeleton. - Dictated By: Jose Helton M.D. Electronically Signed By: Jose Helton M.D. Date Signed: 01/25/07 Bird Davis MD NM ORDERABLES Final Resul t documented in this encounter Visit Diagnoses Diagnosis Disorder of bone and cartilage, unspecified- Primary documented in this encounter Additional Health Concerns Infection Onset Date Last Indicated Resolved Time R/O COVID-19 09/16/2020 09/16/202009/1609/16/2020 11:3 5 PM DIESEL LOCOMOTIVE FIRER/FIREMAN COVID-19 09/17/2020 09/17/2020 10/07/2020 8:08 PM DIESEL LOCOMOTIVE FIRER/FIREMAN documented as of this encounter Care Teams Commissary Manager Relationship Specialty Start Date End Date Roverto Arnold MD [address] [place] [address] PCP - General 12/10/09 documented as of this encounter
--- OUTSIDE RECORDS SUMMARY | 2025-06-23 11:44 | XMS_ITS | Encounter Summary ---
Author Organization [facility] Address [address] [place] [address] Care Team Providers Care Outsole Splicer Name Role Phone Roverto Arnold MD Primary Care Provider [phone] Encounter Details Date Type Department Care Team (Latest Contact Info) Description 07/23/1998 Outpatient Historical [facility] Family Medicine 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 SETTER LOCKSTITCH Gender Identity Not on file Sexual Orientation Not on file documented as of this encounter Plan of Treatment Not on file documented as of this encounter Visit Diagnoses Diagnosis Other and unspecified hyperlipidemia- Primary documented in this encounter Additional Health Concerns Infection Onset Date Last Indicated Resolved Time R/O COVID-19 09/16/2020 09/16/2020 09/16/2020 11:3 5 PM CUFF SETTER LOCKSTITCH COVID-19 09/17/2020 09/17/2020 10/07/2020 8:08 PM CUFF SETTER LOCKSTITCH documented as of this encounter Care Teams Outsole Splicer Relationship Specialty Start Date End Date Roverto Arnold MD [address] [place] [address] PCP - General 12/10/09 documented as of this encounter
--- OUTSIDE RECORDS SUMMARY | 2025-06-23 11:44 | XMS_ITS | Encounter Summary ---
Author Organization [facility] Address [address] [place] [address] Care Team Providers Care Tax Assistant Name Role Phone Roverto Arnold MD Primary Care Provider [phone] Encounter Details Date Type Department Care Team (Latest Contact Info) Description 11/05/2005 Outpatient Historical [facility] Cardiology- [place] [address] [place] [address] Charli Barahona MD NO ADDRESS ON FILE CHR ISCHEMIC HRT DIS NEC (Primary Dx); MIXED HYPERLIPIDEMIA; Benign hypertension; DIABETES MELLITUS TYPE II-UNCOMPL ([facility]) Social History Tobacco Use Types Packs/Day Years Used Date Smoking Tobacco: Never Assessed Comments Unknown Sex and Gender Information Value Date Recorded Sex Assigned at Not on file Legal Sex Female 2:56 AM DEPUTY PROBATION OFFICER Gender Identity Not on file Sexual Orientation Not on file documented as of this encounter Plan of Treatment Not on file documented as of this encounter Visit Diagnoses Diagnosis Other specified forms of chronic ischemic heart disease- Primary Mixed hyperlipidemia Benign hypertension Essential hypertension, benign Type II or unspecified type diabetes mellitus without mention of complication, not stated as uncontrolled documented in this encounter Additional Health Concerns Infection Onset Date Last Indicated Resolved Time R/O COVID-19 09/16/2020 09/16/2020 09/16/2020 11:3 5 PM DEPUTY PROBATION OFFICER COVID-19 09/17/2020 09/17/2020 10/07/2020 8:08 PM DEPUTY PROBATION OFFICER documented as of this encounter Care Teams Tax Assistant Relationship Specialty Start Date End Date Roverto Arnold MD [address] [place] [address] PCP - General 12/10/09 documented as of this encounter
--- OUTSIDE RECORDS SUMMARY | 2025-06-23 11:44 | XMS_ITS | Encounter Summary ---
Author Organization [facility] Address [address] [place] [address] Care Team Providers Care Hotel Superintendent Name Role Phone Roverto Arnold MD Primary Care Provider [phone] Reason for Referral * Outpatient Services (Routine) - Closed Specialty Diagnoses / Procedures Referred By Contac t Referred To Contact Cardiology Diagnoses Carotid artery bruit Coronary artery disease Procedures US CAROTID DOPPLER Marie Askew NP [address] [place] [address] Phone: tel: fax: [facility] [address] [place] [address] Phone: tel: fax: Referral ID Status Reason Start Date Expiration Date Visits Re quested Visits Authorized [id number] Closed 07/29/2011 07/28/2012 1 1 * Outpatient Services (Routine) - Closed Specialty Diagnoses / Procedures Referred By Contac t Referred To Contact Diagnoses Shoulder pain Procedures MRI SHOULDER WO CONTRAST RIGHT Marie Askew NP [address] [place] [address] Phone: tel: fax: Referral ID Status Reason Start Date Expiration Date Visits Re quested Visits Authorized [id number] Closed 07/29/2011 07/28/2012 1 1 Encounter Details Date Type Department Care Team (Latest Contact Info) Description 07/29/2011 Ancillary Orders [facility] Pre-Registration [place] CALL TO MAKE APPOINTMENT ONLY [address] [place] [id number] Marie Askew NP [address] [place] [address] Shoulder pain; Decreased range of motion of hip; Carotid artery bruit; Coronary artery disease Social History Tobacco Use Types Packs/Day Years Used Date Smoking Tobacco: Former Cigarettes 4 30 0 07/06/1958 - 07/06/1988 Alcohol Use Standard Drinks/Week Comments No 0 (1 standard drink = 0.6 oz pur e alcohol) Comments No Sex and Gender Information Value Date Recorded Sex Assigned at Not on file Legal Sex Female 2:56 AM 5TH GRADE TEACHER Gender Identity Not on file Sexual Orientation Not on file documented as of this encounter Plan of Treatment Not on file documented as of this encounter Results * MRI SHOULDER WO CONTRAST RIGHT (08/11/2011 1:20 PM CDT) Anatomical Region Laterality Modality Upper Extremity Magnetic Resonan ce 08/11/2011 1:10 PM CDT Impressions 08/11/2011 2:49 PM CDT Impression: 1. Tendinopathy of the rotator cuff. There is some bursal sided fraying of the supraspinatus tendon adjacent to the lateral acromion. There are findings compatible with impingement. Please see above and correlate clinically. [email or web address] - uploaded from [employer]- Narrative 08/11/2011 2:49 PM CDT Exam: MRI SHOULDER WO CONTRAST RIGHT Date/Time of Exam: Aug 11, 2011 01:20:00 PM Reason For Exam: Shoulder pain. Technique: MRI of the right shoulder was performed without the administration of intravenous contrast. The exam is somewhat limited by motion artifact. Multiple series were repeated several times. There is some bursal sided fraying of the supraspinatus tendon adjacent to the lateral acromion. There is also increased fluid in the subacromial and subdeltoid bursa. There is a small subacromial enthesophyte and mild degenerative changes of the acromioclavicular joint are also noted. There is no muscle atrophy. There is a horizontal lateral acromion. Remainder of the rotator cuff tendons are intact. The long head biceps tendon is identified in the bicipital groove of the humerus. No distinct linear labral tear is identified. There does appear to be some mild cartilage thinning in the glenohumeral joint. No bony edema is identified. Procedure Note Pinky Metzger MD - 08/11/2011 Exam: MRI SHOULDER WO CONTRAST RIGHT Date/Time of Exam: Aug 11, 2011 01:20:00 PM Reason For Exam: Shoulder pain. Technique: MRI of the right shoulder was performed without the administration of intravenous contrast. The exam is somewhat limited by motion artifact. Multiple series were repeated several times. There is some bursal sided fraying of the supraspinatus tendon adjacent to the lateral acromion. There is also increased fluid in the subacromial and subdeltoid bursa. There is a small subacromial enthesophyte and mild degenerative changes of the acromioclavicular joint are also noted. There is no muscle atrophy. There is a horizontal lateral acromion. Remainder of the rotator cuff tendons are intact. The long head biceps tendon is identified in the bicipital groove of the humerus. No distinct linear labral tear is identified. There does appear to be some mild cartilage thinning in the glenohumeral joint. No bony edema is identified. IMPRESSION Impression: 1. Tendinopathy of the rotator cuff. There is some bursal sided fraying of the supraspinatus tendon adjacent to the lateral acromion. There are findings compatible with impingement. Please see above and correlate clinically. [email or web address] - uploaded from [employer]- us Marie Askew NP MR ORDERABLES Final Res ult * US CAROTID DOPPLER (08/11/2011 10:55 AM CDT) Anatomical Region Laterality Modality Neck Ultrasound 08/11/2011 9:39 AM CDT Narrative 08/11/2011 10:58 AM CDT [facility] Noninvasive Vascular Laboratory [address] [place] [id number] Noninvasive Vascular Lab Cerebrovascular Exam Carotid Duplex Patient: Yadira Cruz Study ID: US CAROTID DOPPL Gender: F : 1945 Age: 65 Room: Height: Weight: BSA: Pt status: Outpatient Study Date: 08/11/2011 Study Time: 09:39 AM BSA: Ordering: Rosa Elena Askew Interpreting:Ned Vega MD Vp Delivery: Alma Coffey RVT History: A bruit of the right carotid artery. Coronary artery disease. Risk factors: Hypertension. Diabetes mellitus. Dyslipidemia. Summary Impression: Study demonstrates mild atherosclerosis involving the right common carotid artery, the right internal carotid artery, the left common carotid artery, and the left internal carotid artery. Labs, prior tests, procedures, and surgery: Left endarterectomy. Study data: Carotid duplex study. Complete study and Doppler flow study including spectral analysis, color and zuluaga scale imaging. Location: Vascular laboratory. Patient status: Outpatient. Study status: Routine. Procedure: A vascular evaluation was performed. Image quality was good. Brachial pressures: - Rt brachial pressure (sys): 132mm Hg - Lt brachial pressure (sys): 130mm Hg - Max brachial pressure (sys): 132mm Hg Arterial flow: - Right CCA - proximal - 0.63m/sec 0.22m/sec - Right CCA - distal - 0.73m/sec 0.25m/sec - Right ECA - 1.59m/sec - Right ICA - proximal - 0.74m/sec 0.26m/sec - Right ICA - distal - 0.76m/sec 0.28m/sec - Right vertebral - 0.55m/sec Antegrade flow - Left CCA - proximal - 0.81m/sec 0.2m/sec - Left CCA - distal - 0.8m/sec 0.24m/sec - Left ECA - 1.01m/sec - Left ICA - proximal - 0.92m/sec 0.26m/sec - Left ICA - distal - 0.86m/sec 0.25m/sec - Left vertebral - 0.43m/sec Antegrade flow [facility] is accredited with the Intersocietal Commission for the Accreditation of Vascular Laboratories (ICAVL) Prepared and Electronically Authenticated Ned Vega MD Confirmed 08/11/2011 10:58 Procedure Note Ned Vega MD - 08/11/2011 [facility] Noninvasive Vascular Laboratory [address] [place] [id number] Noninvasive Vascular Lab Cerebrovascular Exam Carotid Duplex Patient: Yadira Cruz Study ID: US CAROTID DOPPL Gender: Jerad : 1945 Age: 65 Room: Height: Weight: BSA: Pt status: Outpatient Study Date: 08/11/2011 Study Time: 09:39 AM BSA: Ordering: Rosa Elena Askew Interpreting:Ned Vega MD Vp Delivery: Alma Coffey RVT History: A bruit of the right carotid artery. Coronary artery disease.Risk factors: Hypertension. Diabetes mellitus. Dyslipidemia. Summary Impression: Study demonstrates mild atherosclerosis involving the right commoncarotid artery, the right internal carotid artery, the left common carotidartery, and the left internal carotid artery. Labs, prior tests, procedures, and surgery: Left endarterectomy. Study data: Carotid duplex study. Complete study and Doppler flow study including spectral analysis, color and zuluaga scale imaging. Location: Vascular laboratory. Patient status: Outpatient. Study status: Routine. Procedure: A vascular evaluation was performed. Image quality was good. Brachial pressures: - Rt brachial pressure (sys): 132mm Hg - Lt brachial pressure (sys): 130mm Hg - Max brachial pressure (sys): 132mm Hg Arterial flow: - Right CCA - proximal - 0.63m/sec 0.22m/sec - Right CCA - distal - 0.73m/sec 0.25m/sec - Right ECA - 1.59m/sec - Right ICA - proximal - 0.74m/sec 0.26m/sec - Right ICA - distal - 0.76m/sec 0.28m/sec - Right vertebral - 0.55m/sec Antegrade flow - Left CCA - proximal - 0.81m/sec 0.2m/sec - Left CCA - distal - 0.8m/sec 0.24m/sec - Left ECA - 1.01m/sec - Left ICA - proximal - 0.92m/sec 0.26m/sec - Left ICA - distal - 0.86m/sec 0.25m/sec - Left vertebral - 0.43m/sec Antegrade flow [facility] is accredited with the Intersocietal Commissionfor the Accreditation of Vascular Laboratories (ICAVL) Prepared and Electronically Authenticated Ned Vega MD Confirmed 08/11/2011 10:58 us Marie Askew NP US ORDERABLES Final Res ult documented in this encounter Visit Diagnoses Diagnosis Shoulder pain Pain in joint, shoulder region Decreased range of motion of hip 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 Carotid artery bruit Other symptoms involving cardiovascular system Coronary artery disease Coronary atherosclerosis of unspecified type of vessel, [place] or graft Carotid artery bruit Other symptoms involving cardiovascular system Coronary artery disease Coronary atherosclerosis of unspecified type of vessel, [place] or graft Shoulder pain Pain in joint, shoulder region documented in this encounter Additional Health Concerns Infection Onset Date Last Indicated Resolved Time R/O COVID-19 09/16/2020 09/16/2020 09/16/2020 11:3 5 PM 5TH GRADE TEACHER COVID-19 09/17/2020 09/17/2020 10/07/2020 8:08 PM 5TH GRADE TEACHER documented as of this encounter Care Teams Hotel Superintendent Relationship Specialty Start Date End Date Roverto Arnold MD [address] [place] [address] PCP - General 12/10/09 documented as of this encounter
--- OUTSIDE RECORDS SUMMARY | 2025-06-23 11:44 | XMS_ITS | Encounter Summary ---
Author Organization [facility] Address [address] [place] [address] Care Team Providers Care Harness Maker Name Role Phone Roverto Arnold MD Primary Care Provider [phone] Encounter Details Date Type Department Care Team (Latest Contact Info) Description 11/03/1999 Outpatient Historical [facility] Cardiology- [place] [address] [place] [address] Charli Barahona MD NO ADDRESS ON FILE Other and unspecified angina pectoris (Primary Dx); Other specified forms of chronic ischemic heart disease; Mixed hyperlipidemia; Benign hypertension Social History Tobacco Use Types Packs/Day Years Used Date Smoking Tobacco: Never Assessed Comments Unknown Sex and Gender Information Value Date Recorded Sex Assigned at Not on file Legal Sex Female 2:56 AM CONCHE LOADER AND UNLOADER Gender Identity Not on file Sexual Orientation Not on file documented as of this encounter Plan of Treatment Not on file documented as of this encounter Visit Diagnoses Diagnosis Other and unspecified angina pectoris- Primary Other specified forms of chronic ischemic heart disease Mixed hyperlipidemia Benign hypertension Essential hypertension, benign documented in this encounter Additional Health Concerns Infection Onset Date Last Indicated Resolved Time R/O COVID-19 09/16/2020 09/16/2020 09/16/2020 11:3 5 PM CONCHE LOADER AND UNLOADER COVID-19 09/17/2020 09/17/2020 10/07/2020 8:08 PM CONCHE LOADER AND UNLOADER documented as of this encounter Care Teams Harness Maker Relationship Specialty Start Date End Date Roverto Arnold MD [address] [place] [address] PCP - General 12/10/09 documented as of this encounter
--- OUTSIDE RECORDS SUMMARY | 2025-06-23 11:44 | XMS_ITS | Clinical Summary ---
Author Organization [facility] de Address [address] [place] [address] Phone Care Team Providers Care Hypnotherapist Name Role Phone Roverto Arnold MD Primary Care Provider [phone] Allergies Active Allergy Reactions Criticality Noted Date Comments Codeine Nausea and Vomiting Low 08/23/2014 Epinephrine Base Other (See Comments) High 9 Burning in lungs Hydrocodone Itching Low 08/23/2014 Morphine Weakness High 01/03/2009 Causes sweating and pain all over Medications cpap medical deviceIndications:Ob structive sleep apnea (adult) (pediatric) CPAP at a pressure of 8.0cm H2O, heated humidifier, and all related supplies 1 Each 0 01/09/20 10 Active levothyroxine (SYNTHROID) 50 mcg Oral tabletIndications:CA D (coronary artery disease),Pure hyperglyceridemia,DM (diabetes mellitus) ([facility]) Take 50 mcg by mouth daily rib stiffener and heel dipper. Active aspirin (ECOTRIN EC) 81 mg Tablet, Delayed Release (E.C.) Take 1 Tab (81 mg) by mouth daily. 30 Tab 11 06/11/20 15 Active furosemide (LASIX) 20 mg tablet Take 20 mg by mouth daily. Active rOPINIRole (REQUIP) 2 mg Tablet Take 2 mg by mouth daily . Active magnesium oxide (MAG-OX) 400 mg tablet Take 400 mg by mouth daily. Active cetirizine (ZyrTEC) 10 mg tablet Take 10 mg by mouth daily. Active pantoprazole (PROTONIX) 40 mg Tablet, Delayed Release (E.C.) Take 40 mg by mouth daily. Active metoprolol tartrate (LOPRESSOR) 25 mg tablet Take 0.5 Tablets (12.5 mg) by mouth 2 times daily. 90 Tablet 1 9 1:21 PM CLINICAL FACULTY 12/12/19 19 Active ranolazine ER (RANEXA) 500 mg Extended Release 12 hour tablet TAKE 1 TABLET(500 MG) BY MOUTH EVERY 12 HOURS 180 Tablet 1 03/16/20 19 Active clopidogrel (PLAVIX) 75 mg Tablet TAKE 1 TABLET(75 MG) BY MOUTH DAILY 90 Tablet 3 06/29/20 19 Active insulin detemir U-100 (LEVEMIR) 100 unit/mL pen syringe Inject 25 units in the morning and 40 untis at night 3 mL 04/27/20 20 Active simethicone (GAS-X ORAL) Take by mouth daily. 2 chewables prn Active oxygen home delivery Home Oxygen Concentrator yes at 3 L/M Rest, 4 L/M Activity, 3 L/M Sleep, Delivery Device: Nasal Cannula Portability: yes, 3 L/M Rest, 4 L/M Activity, May provide device best for patient needs(E system,home fill, conserving device) Length of Need: 99 months 1 Each 09/21/20 20 Active Jardiance 10 mg tablet Take 10 mg by mouth daily. 09/06/20 20 Active fenofibrate nanocrystallized (TRICOR) 145 mg tablet TAKE 1 TABLET BY MOUTH DAILY 90 Tablet 3 11/29/19 21 Active nitroglycerin (NITROSTAT) 0.4 mg Tablet, Sublingual Place 0.4 mg under tongue every 5 minutes as needed for Chest Pain. Active isosorbide mononitrate (IMDUR) 60 mg Extended Release 24 hour tablet Take 1 Tablet (60 mg) by mouth daily in the morning. 135 Tablet 1 02/07/20 21 Active rosuvastatin (CRESTOR) 20 mg tablet TAKE 1 TABLET(20 MG) BY MOUTH DAILY 90 Tablet 02/07/20 21 Active diltiaZEM (CARDIZEM CD) 120 mg Controlled Delivery 24 hour capsule TAKE 1 CAPSULE BY MOUTH DAILY 90 Capsule 02/07/20 21 Active isosorbide mononitrate (IMDUR) 60 mg Extended Release 24 hour tablet Take 1 Tablet (60 mg) by mouth daily in the morning. 90 Tablet 2 03/14/20 21 Active Active Problems Problem Noted Date Diagnosed Date History of 2018 novel coronavirus disease (COVID -19) 10/27/2020 Pneumonia due to COVID-19 virus 09/16/2020 Acute on chronic respiratory failure with hypoxi a 09/16/2020 Sleep apnea 04/25/2020 DM (diabetes mellitus), type 2 04/25/2020 CKD (chronic kidney disease) 04/25/2020 Bilateral carotid artery stenosis 06/13/2019 Stage 3 chronic kidney disease 03/01/2019 Overview (10/27/2020): Last Assessment & Plan: GFR stable over time. No changes at this time. BP controlled. See back in 6 months. Patient is aware of CKD and current GFR. Patient is aware of importance of adequate fluid intake, low sodium diet and avoiding NSAID's. Leukopenia 01/17/2018 S/P drug eluting coronary stent placement 2014 On home O2 02/08/2015 Overview (02/08/2015): 2 L during the day and CPAP at night Syncope 02/07/2015 Expressive aphasia 02/07/2015 Hypotension 02/07/2015 Hypothyroidism 02/07/2015 Dehydration 02/07/2015 Encounter for long-term (current) use of other m edications 04/21/2013 Mixed hyperlipidemia 07/09/2011 Cerebrovascular disease 07/09/2011 Status post four vessel coronary artery bypass 0 07/09/2011 Chronic ischemic heart disease 06/10/2010 PVD (peripheral vascular disease) 06/10/2010 GERD (gastroesophageal reflux disease) 0 MOMO (generalized anxiety disorder) 06/10/2010 SVETLANA on CPAP 03/21/2010 Postoperative hemorrhage inv olving circulatory system following cardiac catheterization Multiple vessel coronary artery disease Benign essential hypertension Resolved Problems Problem Noted Date Diagnosed Date Resolved Date Angina, class III 02/06/2021 02/06/2021 NSTEMI (non-ST elevated myoc ardial infarction) 09/07/2020 09/09/2020 Stable angina 06/18/2020 02/06/2021 Chest discomfort 04/25/2020 06/13/2020 Unstable angina 04/24/2020 06/13/2020 Overview (04/26/2020): Added automatically from request for surgery [id number] Unstable angina 12/06/2018 06/10/2019 Chest pain 06/19/2015 06/10/2019 Abnormal coronary angiogram 06/19/2015 06/10/2019 Acute renal failure 02/07/2015 06/13/20 19 Hemorrhagic shock 10/27/2020 Acute coronary syndrome 12/2020 Immunizations Immunization Administration Dates Next Due (PREVNAR 13)(6 WKS UP) PNEUM OCOCCAL CONJUGATE (PCV13) 0.5 ML, IM 02/27/2008 Influenza Seasonal Unspecified Formulation IM Social History Tobacco Use Types Packs/Day Years Used Date Smoking Tobacco: Former Cigarettes 4 30 0 07/06/1958 - 07/06/1988 Smokeless Tobacco: Never Tobacco Cessation:Counseling Given: No Alcohol Use Standard Drinks/Week Comments No 0 (1 standard drink = 0.6 oz pur e alcohol) Comments No Sex and Gender Information Value Date Recorded Sex Assigned at Not on file Legal Sex Female 2:56 AM CLINICAL FACULTY Gender Identity Not on file Sexual Orientation Not on file Occupation Industry Job Start Date Job End Date Not on file Not on file Not on file Not on file Last Filed Vital Signs Vital Sign Reading Time Taken Comments Blood Pressure 116/53 02/06/2021 8:11 AM CDT Pulse 99 02/06/2021 8:02 AM CDT Temperature 35.8 C (96.5 F) 02/06/2021 7:00 AM CDT Respiratory Rate 16 02/06/2021 7:00 AM CDT Oxygen Saturation 91% 02/05/2021 5:15 PM CDT Inhaled Oxygen Concentration - - Weight 61.9 kg (136 lb 7.4 oz) 02/05/2021 11:54 AM CDT Height 157.5 cm (5' 2 ) 02/05/2021 11:54 AM CDT Body Mass Index 24.96 02/05/2021 11:54 AM CDT Plan of Treatment Health Maintenance Due Date Last Done Comments DIABETES ANNUAL FOOT EXAM 1962 DIABETES ANNUAL RETINAL EXAM 1962 DIABETES MICROALBUMIN ANNUAL SCREEN 1962 DTAP/TDAP/TD VACCINES (1 - Tdap) 1963 ZOSTER VACCINE (1 of 2) 1994 PNEUMOCOCCAL VACCINE 50+ YEA RS (2 of 2 - PPSV23, PCV20, or PCV21) 04/23/2008 02/27/2008 OSTEOPOROSIS SCREENING 2009 RSV VACCINE (60+ or ) (1 - 1-dose 75+ series) 2019 DIABETES HBA1C Q 6 MONTHS 02/07/20212019, 12/06/2018, 04/18/2014, Additional history exists LDL CHOLESTEROL ANNUAL 02/04/2022 1, 08/28/2019, 12/01/2018, Additional history exists INFLUENZA VACCINE (#1) 2025 9, 05/25/2017, 06/25/2016, Additional history exists Medical Devices Implanted Type Area Bioprocess Development Engineer Device Identifier Shelf Expiration Date Model / Serial / Lot Sealant Progel Pleural 4ml [id number] - [id number] Implanted:Qty: 1 on 02/20/2013 by Fabio Islas MD at [facility] Biological N/A: Chest CR BARD- DAVOL INC 09/22/2014 [id number] / / [id number] Sealant Mynx Exhibit Artist 6-7fr [id number] - [id number] Implanted:12/2019 at [facility] (Quantity not on file) Closure Device Right: Groin ACCESS CLOSURE 01/22/2022 [id number] / / [id number] Closure Perclose Proglide [id number] - [id number] Implanted:Qty: 1 on 02/05/2021 at [facility] Closure Device Right: Groin DUDLEY- VASC DEVICE 10/24/2022 [id number] / / [id number] Republic Ptfe Thck 1.6mmx2.5x10.2 cm [id number] - [id number] Implanted:Qty: 1 on 02/20/2013 by Fabio Islas MD at [facility] Graft N/A: Chest CR BARD- GUILLERMO VASC INC 08/22/2017 [id number] / / [id number] Republic Ptfe Thck 1.6mmx2.5x2.5c m [id number] - [id number] Implanted:Qty: 1 on 02/20/2013 at [facility] Graft CR BARD- GUILLERMO VASC INC 12/22/2017 [id number] / / [id number] Sealant Floseal W/ Adptr 10ml [id number] - [id number] Implanted:Qty: 1 on 02/20/2013 by Fabio Islas MD at [facility] Sealant N/A: Chest LOPES- BIOSCIENCE 02/20/2014 [id number] / / [id number] Sealant Floseal W/ Adptr 10ml [id number] - [id number] Implanted:Qty: 1 on 02/20/2013 by Niranjan Reilly MD at [facility] Sealant LOPES- BIOSCIENCE 04/23/2014 [id number] / / [id number] Promus Premier 2.25x12 Implanted:06/2015 (Quantity not on file) Stent Stent Synergy Mr 4.0x28mm Drug Elut [id number] - [id number] Implanted:12/2019 at [facility] (Quantity not on file) Stent Right: Coronary BOSTON SCI MAULIK 09/12/2021 [id number] / / [id number] Stent Synergy Mr 2.5x16mm Drug Elut [id number] - [id number] Implanted:Qty: 1 on 02/05/2021 by Bird Hernandez MD at [facility] Stent Left: Coronary [employer]ON [employer] MAULIK 09/11/2022 [id number] / / [id number] Stent Synergy Mr 4.0x8mm Drug Elut [id number] - [id number] Implanted:Qty: 1 on 02/05/2021 by Bird Hernandez MD at [facility] Stent Left: Coronary [employer] MAULIK 08/05/2022 [id number] / / [id number] Stent Synergy Mr 4.0x12mm Drug Elut [id number] - [id number] Implanted:Qty: 1 on 02/05/2021 by Bird Hernandez MD at [facility] Stent Right: Coronary [employer] MAULIK 08/27/2022 [id number] / / [id number] Marker Graft 1001-83 - [id number] Implanted:Qty: 1 on 02/20/2013 by Fabio Islas MD at [facility] N/A: Chest ROMAN INT 05/22/2016 1001-83 / / [id number] Explanted Type Area Bioprocess Development Engineer Device Identifier Shelf Expiration Date Model / Serial / Lot Stent Graftmaster 4.5x19 Rx [id number] - [id number] Implanted:Qty: 1 Explanted:Qty: 1 on 04/26/2020 at [facility] Stent Right: Coronary DUDLEY- VASC DEVICE 02/21/2021 [id number] / / [id number] Description:inserted and rem chayo undeployed and intact Procedures Procedure Name Priority Date/Time Associated Diagnosis Comments LIPID PANEL Routine 02/04/2021 8:33 AM CDT Multiple vessel coronary artery disease PVD (peripheral vascular disease) HEMOGLOBIN A1C Routine 12/06/2018 11:56 PM CLINICAL FACULTY from Last 3 Months or Most Recently Relevant to Health Maintenance Results * (ABNORMAL) LIPID PANEL (02/04/2021 8:33 AM CDT) CHOLESTEROL 231(H) <200 mg/dL 02/04/2021 9:30 PM CDT [facility] TRIGLYCERIDE 493(H) <150 mg/dL 02/04/2021 9:30 PM CDT [facility] HDL 40 40 - 59 mg/dL 02/04/2021 9:30 PM CDT [facility] LDL CALCULATED 02/04/2021 9:30 PM CDT [facility] Comment:Calculated LDL is no t accurate when the Triglyceride value exceeds 400. NON-HDL CHOLESTEROL 191(H) <130 mg/dL 02/04/2021 9:30 PM CDT [facility] Blood Venipuncture / Unknown 02/04/2021 8:33 AM CDT 02/04/2021 8:14 PM CDT Narrative [facility] - 02/04/2021 9:30 PM [...] Annamaria Lanza NP CHEMISTRY ORDERABLES Final Result Performing Organization Address [facility] de Phone Number [facility] CLIA# [id number] [address] [place] [address] * (ABNORMAL) HEMOGLOBIN A1C (12/06/2018 11:56 PM CLINICAL FACULTY) HEMOGLOBIN A1C 7.7(H) 4.0 - 6.0 % 12/07/2018 12:24 PM CLINICAL FACULTY [facility] EST. AVG GLUCOSE, A1C 174 mg/dL 12/07/2018 12:24 PM [facility] Blood Venipuncture / Unknown 12/06/2018 11:56 PM CLINICAL FACULTY 12/07/2018 12:08 AM CLINICAL FACULTY Narrative [facility] - 12/07/2018 12:24 PM CLINICAL FACULTY HGB A1C INTERPRETATION NORMAL: <5.7% PRE-DIABETES: 5.7 - 6.4% DIABETES: 6.5% OR GREATER Barrera Corral MD CHEMISTRY ORDERABLES Fi nal Result Performing Organization Address [facility] Co de Phone Number [facility] CLIA# [id number] [address] [place], [place] [address] from Last 3 Months or Most Recently Relevant to Health Maintenance Insurance MEDICAID [facility] DUAL COMPLETE MCR PPO D-SNP RX [facility] Medicare Part D RX INFOCROSSING Medicaid Advance Directives For more information, please contact: [phone] * Full Code (Latest Code Status on File) Date Activated Date Inactivated Comments 02/05/2021 11:05 AM 02/06/2021 1:22 PM * Full Code Date Activated Date Inactivated Comments 09/17/2020 12:24 AM 09/21/2020 2:13 PM * Full Code Date Activated Date Inactivated Comments 09/07/2020 11:01 PM 09/09/2020 3:10 PM * Full Code Date Activated Date Inactivated Comments 04/25/2020 10:44 PM 04/27/2020 6:01 PM * Full Code Date Activated Date Inactivated Comments 04/25/2020 11:48 AM 04/25/2020 10:44 PM Care Teams Hypnotherapist Relationship Specialty Start Date End Date Roverto Arnold MD [address] [place] [address] PCP - General 12/10/09
--- OUTSIDE RECORDS SUMMARY | 2025-06-23 11:44 | XMS_ITS | Encounter Summary ---
Author Organization [facility] Address [address] [place] [address] Care Team Providers Care Stripping Shovel Oiler Name Role Phone Roverto Arnold MD Primary Care Provider [phone] Encounter Details Date Type Department Care Team (Latest Contact Info) Description 11/21/2003 Outpatient Historical [facility] [address] [place] [phone] Jose G Talley MD [address] [place] [phone] DIABETES UNCOMPL ADULT-UNCONTRLLED (Primary Dx) Social History Tobacco Use Types Packs/Day Years Used Date Smoking Tobacco: Never Assessed Comments Unknown Sex and Gender Information Value Date Recorded Sex Assigned at Not on file Legal Sex Female 2:56 AM ROCK CUTTER Gender Identity Not on file Sexual Orientation Not on file documented as of this encounter Plan of Treatment Not on file documented as of this encounter Visit Diagnoses Diagnosis Type II or unspecified type diabetes mellitus without mention of complication, uncontrolled- Primary documented in this encounter Additional Health Concerns Infection Onset Date Last Indicated Resolved Time R/O COVID-19 09/16/2020 09/16/2020 09/16/2020 11:3 5 PM ROCK CUTTER COVID-19 09/17/2020 09/17/2020 10/07/2020 8:08 PM ROCK CUTTER documented as of this encounter Care Teams Stripping Shovel Oiler Relationship Specialty Start Date End Date Roverto Arnold MD [address] [place] [address] PCP - General 12/10/09 documented as of this encounter
--- OUTSIDE RECORDS SUMMARY | 2025-06-23 11:44 | XMS_ITS | Encounter Summary ---
Author Organization [facility] Address [address] [place] [address] Care Team Providers Care Postal Service Sectional Center Manager Name Role Phone Roverto Arnold MD Primary Care Provider [phone] Reason for Referral * Radiology Services (Routine) - Closed Specialty Diagnoses / Procedures Referred By Contac t Referred To Contact Radiology Diagnoses Hematoma Procedures US PELVIS LIMITED NON OB US RIGHT UPR QUADRANT Bird Hernandez MD Phone: tel: fax: [facility] Ultrasound [address] [place] [address] Phone: tel: fax: Referral ID Status Reason Start Date Expiration Date Visits Re quested Visits Authorized [id number] Closed 12/26/2018 01/26/2020 1 1 ING STRIPPER Encounter Details Date Type Department Care Team (Late st Contact Info) Description 12/26/2018 Ancillary Orders [facility] Cardiology- [place] [address] [place] [address] Bird Hernandez MD [address] [facility] [address] [place] [address] Hematoma Social History Tobacco Use Types Packs/Day Years Used Date Smoking Tobacco: Former Cigarettes 4 30 0 07/06/1958 - 07/06/1988 Smokeless Tobacco: Never Alcohol Use Standard Drinks/Week Comments No 0 (1 standard drink = 0.6 oz pur e alcohol) Comments No Sex and Gender Information Value Date Recorded Sex Assigned at Not on file Legal Sex Female 2:56 AM PLATING STRIPPER Gender Identity Not on file Sexual Orientation Not on file Occupation Industry Job Start Date Job End Date Not on file Not on file Not on file Not on file documented as of this encounter Plan of Treatment Not on file documented as of this encounter Results * US PELVIS LIMITED NON OB (12/26/2018 4:39 PM PLATING STRIPPER) Anatomical Region Laterality Modality Pelvis Ultrasound 12/26/2018 4:39 PM PLATING STRIPPER Impressions 12/27/2018 11:36 AM PLATING STRIPPER IMPRESSION: 7.6 x 5 x 5.2 cm likely resolving hematoma within the right lower quadrant. [id number] Narrative 12/27/2018 11:36 AM PLATING STRIPPER US PELVIS LIMITED NON OB Reason For Exam: See Diagnosis. Diagnosis: Hematoma. COMPARISON: 12/06/2018 CT FINDINGS: There is a complex cystic structure within the RLQ measures 7.6 x 5.0 x 5.2 cm probable resolving hematoma. Compared to the prior CT, this structure appears to be reduced in size. I did not see extension into the inguinal area. There are no other masses or fluid collections visible in the RLQ or inguinal canal. Procedure Note Jacob Mitchell MD - 12/27/2018 US PELVIS LIMITED NON OB Reason For Exam: See Diagnosis. Diagnosis: Hematoma. COMPARISON: 12/06/2018 CT FINDINGS: There is a complex cystic structure within the RLQ measures 7.6 x 5.0 x 5.2 cm probable resolving hematoma. Compared to the prior CT, this structure appears to be reduced in size. I did not see extension into the inguinal area. There are no other masses or fluid collections visible in the RLQ or inguinal canal. IMPRESSION: 7.6 x 5 x 5.2 cm likely resolving hematoma within the right lower quadrant. [id number] us Bird Hernandez MD ORDERABLES Final Result documented in this encounter Visit Diagnoses Diagnosis Hematoma Contusion of unspecified site Hematoma Contusion of unspecified site documented in this encounter Additional Health Concerns Infection Onset Date Last Indicated Resolved Time R/O COVID-19 09/16/2020 09/16/2020 09/16/2020 11:3 5 PM PLATING STRIPPER COVID-19 09/17/2020 09/17/2020 10/07/2020 8:08 PM PLATING STRIPPER documented as of this encounter Care Teams Postal Service Sectional Center Manager Relationship Specialty Start Date End Date Roverto Arnold MD [address] [place] [address] PCP - General 12/10/09 documented as of this encounter
--- OUTSIDE RECORDS SUMMARY | 2025-06-23 11:44 | XMS_ITS | Encounter Summary ---
Author Organization [facility] Address [address] Stephen: [place] [address] Care Team Providers Care Local Company Flatbed Truck Driver Name Role Phone Roverto Arnold MD Primary Care Provider [phone] Encounter Details Date Type Department Care Team (Latest Contact Info) Description 01/20/2002 Emergency Yuan Mcclain MD [address] [facility] [facility] [place] [id number] Social History Tobacco Use Types Packs/Day Years Used Date Smoking Tobacco: Never Assessed Comments Unknown Sex and Gender Information Value Date Recorded Sex Assigned at Not on file Legal Sex Female 2:56 AM BONDING AND COMPOSITE FABRICATOR Gender Identity Not on file Sexual Orientation Not on file documented as of this encounter Plan of Treatment Not on file documented as of this encounter Visit Diagnoses Not on filedocumented in this encounter Additional Health Concerns Infection Onset Date Last Indicated Resolved Time R/O COVID-19 09/16/2020 09/16/2020 09/16/2020 11:3 5 PM BONDING AND COMPOSITE FABRICATOR COVID-19 09/17/2020 09/17/2020 10/07/2020 8:08 PM BONDING AND COMPOSITE FABRICATOR documented as of this encounter Care Teams Local Company Flatbed Truck Driver Relationship Specialty Start Date End Date Roverto Arnold MD [address] [place], [place] [address] PCP - General 2/16/10 documented as of this encounter
--- OUTSIDE RECORDS SUMMARY | 2025-06-23 11:44 | XMS_ITS | Encounter Summary ---
Author Organization [facility] Address [address] [place] [address] Care Team Providers Care Automation Control Integrator Name Role Phone Roverto Arnold MD Primary Care Provider [phone] Encounter Details Date Type Department Care Team (Late st Contact Info) Description 09/04/2003 Outpatient Historical [facility] Social History Tobacco Use Types Packs/Day Years Used Date Smoking Tobacco: Never Assessed Comments Unknown Sex and Gender Information Value Date Recorded Sex Assigned at Not on file Legal Sex Female 2:56 AM ADVERTISING SALES EXECUTIVE Gender Identity Not on file Sexual Orientation Not on file documented as of this encounter Plan of Treatment Not on file documented as of this encounter Visit Diagnoses Not on filedocumented in this encounter Additional Health Concerns Infection Onset Date Last Indicated Resolved Time R/O COVID-19 09/16/2020 09/16/2020 09/16/2020 11:3 5 PM ADVERTISING SALES EXECUTIVE COVID-19 09/17/2020 09/17/2020 10/07/2020 8:08 PM ADVERTISING SALES EXECUTIVE documented as of this encounter Care Teams Automation Control Integrator Relationship Specialty Start Date End Date Roverto Arnold MD [address] [place] [address] PCP - General 12/10/09 documented as of this encounter
--- OUTSIDE RECORDS SUMMARY | 2025-06-23 11:44 | XMS_ITS | Encounter Summary ---
Author Organization [facility] Address [address] Stephen: [place] [address] Care Team Providers Care Elastic Attacher Coverstitch Name Role Phone Roverto Arnold MD Primary Care Provider [phone] Encounter Details Date Type Department Care Team (Late st Contact Info) Description 09/30/2001 Outpatient Historical Denise Maher Social History Tobacco Use Types Packs/Day Years Used Date Smoking Tobacco: Never Assessed Comments Unknown Sex and Gender Information Value Date Recorded Sex Assigned at Not on file Legal Sex Female 2:56 AM FAMILY READINESS SUPPORT ASSISTANT Gender Identity Not on file Sexual Orientation Not on file documented as of this encounter Plan of Treatment Not on file documented as of this encounter Visit Diagnoses Not on filedocumented in this encounter Additional Health Concerns Infection Onset Date Last Indicated Resolved Time R/O COVID-19 09/16/2020 09/16/2020 09/16/2020 11:3 5 PM FAMILY READINESS SUPPORT ASSISTANT COVID-19 09/17/2020 09/17/2020 10/07/2020 8:08 PM FAMILY READINESS SUPPORT ASSISTANT documented as of this encounter Care Teams Elastic Attacher Coverstitch Relationship Specialty Start Date End Date Roverto Arnold MD [address] [facility] [place] [address] PCP - General 12/10/09 documented as of this encounter
--- OUTSIDE RECORDS SUMMARY | 2025-06-23 11:44 | XMS_ITS | Encounter Summary ---
Author Organization [facility] Address [address] [place] [address] Care Team Providers Care Sap Basis Architect Name Role Phone Roverto Arnold MD Primary Care Provider [phone] Encounter Details Date Type Department Care Team (Latest Contact Info) Description 09/20/2003 Outpatient Historical [facility] [address] [place] [id number] Jose G Talley MD [address] [place] [phone] DIABETES UNCOMPL ADULT-UNCONTRLLED (Primary Dx) Social History Tobacco Use Types Packs/Day Years Used Date Smoking Tobacco: Never Assessed Comments Unknown Sex and Gender Information Value Date Recorded Sex Assigned at Not on file Legal Sex Female 2:56 AM ARTILLERY MAINTENANCE SUPERVISOR Gender Identity Not on file Sexual Orientation [...] COVID-19 09/16/2020 09/16/2020 09/16/2020 11:3 5 PM ARTILLERY MAINTENANCE SUPERVISOR COVID-19 09/17/2020 09/17/2020 10/07/2020 8:08 PM ARTILLERY MAINTENANCE SUPERVISOR documented as of this encounter Care Teams Sap Basis Architect Relationship Specialty Start Date End Date Roverto Arnold MD [address] [place] [address] PCP - General 12/10/09 documented as of this encounter
--- OUTSIDE RECORDS SUMMARY | 2025-06-23 11:44 | XMS_ITS | Encounter Summary ---
Author Organization [facility] Address [address] [place] [address] Care Team Providers Care Blueprint Assembler Name Role Phone Roverto Arnold MD Primary Care Provider [phone] Encounter Details Date Type Department Care Team (Latest Contact Info) Description 07/28/2001 Outpatient Historical [facility] Cardiology- [place] [address] [place] [address] Charli Barahona MD NO ADDRESS ON FILE Other and unspecified angina pectoris (Primary Dx); Other specified forms of chronic ischemic heart disease; Mixed hyperlipidemia Social History Tobacco Use Types Packs/Day Years Used Date Smoking Tobacco: Never Assessed Comments Unknown Sex and Gender Information Value Date Recorded Sex Assigned at Not on file Legal Sex Female 2:56 AM NANNY BABYSITTER Gender Identity Not on file Sexual Orientation Not on file documented as of this encounter Plan of Treatment Not on file documented as of this encounter Visit Diagnoses Diagnosis Other and unspecified angina pectoris- Primary Other specified forms of chronic ischemic heart disease Mixed hyperlipidemia documented in this encounter Additional Health Concerns Infection Onset Date Last Indicated Resolved Time R/O COVID-19 09/16/2020 09/16/2020 09/16/2020 11:3 5 PM NANNY BABYSITTER COVID-19 09/17/2020 09/17/2020 10/07/2020 8:08 PM NANNY BABYSITTER documented as of this encounter Care Teams Blueprint Assembler Relationship Specialty Start Date End Date Roverto Arnold MD [address] [place] [address] PCP - General 12/10/09 documented as of this encounter
--- OUTSIDE RECORDS SUMMARY | 2025-06-23 11:44 | XMS_ITS | Encounter Summary ---
Author Organization [facility] Address [address] [place] [address] Care Team Providers Care Caregivers Non Medical Name Role Phone Roverto Arnold MD Primary Care Provider [phone] Encounter Details Date Type Department Care Team (Latest Contact Info) Description 12/20/2000 Outpatient Historical [facility] Cardiology- [place] [address] [place] [address] Charli Baraohna MD NO ADDRESS ON FILE Other and unspecified angina pectoris (Primary Dx); Other specified forms of chronic ischemic heart disease; Mixed hyperlipidemia Social History Tobacco Use Types Packs/Day Years Used Date Smoking Tobacco: Never Assessed Comments Unknown Sex and Gender Information Value Date Recorded Sex Assigned at Not on file Legal Sex Female 2:56 AM LUMBER TAILER Gender Identity Not on file Sexual Orientation [...] COVID-19 09/16/2020 09/16/2020 09/16/2020 11:3 5 PM LUMBER TAILER COVID-19 09/17/2020 09/17/2020 10/07/2020 8:08 PM LUMBER TAILER documented as of this encounter Care Teams Caregivers Non Medical Relationship Specialty Start Date End Date Roverto Arnold MD [address] [place] [address] PCP - General 12/10/09 documented as of this encounter
--- OUTSIDE RECORDS SUMMARY | 2025-06-23 11:44 | XMS_ITS | Encounter Summary ---
Author Organization [facility] Address [address] [place] [address] Care Team Providers Care Occupational Health Physiotherapist Name Role Phone Roverto Arnold MD Primary Care Provider [phone] Encounter Details Date Type Department Care Team (Latest Contact Info) Description 11/30/2006 Outpatient [facility] Breast Center [facility] [address] [place], [place] [id number] Bird Davis MD [address] [place] [address] Other Screening Mammogram (Primary Dx) Social History Tobacco Use Types Packs/Day Years Used Date Smoking Tobacco: Never Assessed Comments Unknown Sex and Gender Information Value Date Recorded Sex Assigned at Not on file Legal Sex Female 2:56 AM CIRCULAR SAWYER STONE Gender Identity Not on file Sexual Orientation Not on file documented as of this encounter Plan of Treatment Not on file documented as of this encounter Visit Diagnoses Diagnosis Other screening mammogram- Primary documented in this encounter Additional Health Concerns Infection Onset Date Last Indicated Resolved Time R/O COVID-19 09/16/2020 09/16/2020 09/16/2020 11:3 5 PM CIRCULAR SAWYER STONE COVID-19 09/17/2020 09/17/2020 10/07/2020 8:08 PM CIRCULAR SAWYER STONE documented as of this encounter Care Teams Occupational Health Physiotherapist Relationship Specialty Start Date End Date Roverto Arnold MD [address] [facility] [place] [address] PCP - General 12/10/09 documented as of this encounter
--- OUTSIDE RECORDS SUMMARY | 2025-06-23 11:44 | XMS_ITS | Encounter Summary ---
Author Organization [facility] Address [address] [place] [address] Care Team Providers Care Third Miller Name Role Phone Roverto Arnold MD Primary Care Provider [phone] Encounter Details Date Type Department Care Team (Late st Contact Info) Description 09/01/2011 Ancillary Orders [facility] Orthopedics- [address] [place] [address] Darnell Lerma MD NO ADDRESS ON FILE Pain Social History Tobacco Use Types Packs/Day Years Used Date Smoking Tobacco: Former Cigarettes 4 30 0 07/06/1958 - 07/06/1988 Smokeless Tobacco: Never Alcohol Use Standard Drinks/Week Comments No 0 (1 standard drink = 0.6 oz pur e alcohol) Comments No Sex and Gender Information Value Date Recorded Sex Assigned at Not on file Legal Sex Female 2:56 AM ELECTRICIAN FRONT Gender Identity Not on file Sexual Orientation Not on file documented as of this encounter Plan of Treatment Not on file documented as of this encounter Results * XR SHOULDER 2+ VW LEFT (09/01/2011 1:25 PM ELECTRICIAN FRONT) Anatomical Region Laterality Modality Upper Extremity Computed Radiogr aphy Narrative 09/05/2011 7:05 AM ELECTRICIAN FRONT Bilateral shoulder internal, external, and Y views were obtained and reviewed today in the clinic. X-rays show some mild AC joint changes. This is present in right and left shoulder. There may be some mild anterior spurring. There is no meso-acromion or meta-acromion noted. No other obvious abnormality and no other pathologic process is seen in either right or left shoulder. Procedure Note Darnell Lerma MD - 09/05/2011 Bilateral shoulder internal, external, and Y views were obtained andreviewed today in the clinic. X-rays show some mild AC joint changes.This is present in right and left shoulder. There may be some mildanterior spurring. There is no meso-acromion or meta-acromion noted. Noother obvious abnormality and no other pathologic process is seen ineither right or left shoulder. us Darnell Lerma MD DIAGNOSTIC IMAGING ORDERABLES Final Result documented in this encounter Visit Diagnoses Diagnosis Pain Generalized pain documented in this encounter Additional Health Concerns Infection Onset Date Last Indicated Resolved Time R/O COVID-19 09/16/2020 09/16/2020 09/16/2020 11:3 5 PM ELECTRICIAN FRONT COVID-19 09/17/2020 09/17/2020 10/07/2020 8:08 PM ELECTRICIAN FRONT documented as of this encounter Care Teams Third Miller Relationship Specialty Start Date End Date Roverto Arnold MD [address] [place] [address] PCP - General 12/10/09 documented as of this encounter
--- OUTSIDE RECORDS SUMMARY | 2025-06-23 11:44 | XMS_ITS | Encounter Summary ---
Author Organization [facility] Address [address] [place] [address] Care Team Providers Care Automotive Parts Coordinator Name Role Phone Roverto Arnold MD Primary Care Provider [phone] Encounter Details Date Type Department Care Team (Late st Contact Info) Description 12/10/2003 Outpatient Historical [facility] General and Trauma Surgery-[address] [place] [address] Ursula Arita, BREASTFEEDING PEER COUNSELOR [address] [place] [address] CAROTID ART OCCL-NO INFARCT (Primary Dx); PERIPH VASCULAR DIS NOS; DIABETES UNCOMPL ADULT-TYPE II (CMS/HCC) Social History Tobacco Use Types Packs/Day Years Used Date Smoking Tobacco: Never Assessed Comments Unknown Sex and Gender Information Value Date Recorded Sex Assigned at Not on file Legal Sex Female 2:56 AM TOE TRIMMER Gender Identity Not on file Sexual Orientation [...] COVID-19 09/16/2020 09/16/2020 09/16/2020 11:3 5 PM TOE TRIMMER COVID-19 09/17/2020 09/17/2020 10/07/2020 8:08 PM TOE TRIMMER documented as of this encounter Care Teams Automotive Parts Coordinator Relationship Specialty Start Date End Date Roverto Arnold MD [address] [place] [address] PCP - General 12/10/09 documented as of this encounter
--- OUTSIDE RECORDS SUMMARY | 2025-06-23 11:44 | XMS_ITS | Encounter Summary ---
Author Organization [facility] Address [address] [place] [address] Care Team Providers Care Compensation And Benefits Manager Name Role Phone Roverto Arnold MD Primary Care Provider [phone] Encounter Details Date Type Department Care Team (Late st Contact Info) Description 01/17/2002 Outpatient Historical [facility] [address] [place] [address] Social History Tobacco Use Types Packs/Day Years Used Date Smoking Tobacco: Never Assessed Comments Unknown Sex and Gender Information Value Date Recorded Sex Assigned at Not on file Legal Sex Female 2:56 AM SENIOR HUMAN RESOURCES REPRESENTATIVE Gender Identity Not on file Sexual Orientation Not on file documented as of this encounter Plan of Treatment Not on file documented as of this encounter Visit Diagnoses Not on filedocumented in this encounter Additional Health Concerns Infection Onset Date Last Indicated Resolved Time R/O COVID-19 09/16/2020 09/16/2020 09/16/2020 11:3 5 PM SENIOR HUMAN RESOURCES REPRESENTATIVE COVID-19 09/17/2020 09/17/2020 10/07/2020 8:08 PM SENIOR HUMAN RESOURCES REPRESENTATIVE documented as of this encounter Care Teams Compensation And Benefits Manager Relationship Specialty Start Date End Date Roverto Arnold MD [address] [place], [place] [address] PCP - General 12/10/09 documented as of this encounter
--- OUTSIDE RECORDS SUMMARY | 2025-06-23 11:44 | XMS_ITS | Encounter Summary ---
Author Organization [facility] Address [address] [place] [address] Care Team Providers Care Culinary Chef Name Role Phone Roverto Arnold MD Primary Care Provider [phone] Encounter Details Date Type Department Care Team (Latest Contact Info) Description 12/02/1998 Outpatient Historical [facility] Family Medicine [facility] [address] [facility] [address] [place] [address] Colten Mayer MD NO ADDRESS ON FILE Diaphragmatic hernia (Primary Dx) Social History Tobacco Use Types Packs/Day Years Used Date Smoking Tobacco: Never Assessed Comments Unknown Sex and Gender Information Value Date Recorded Sex Assigned at Not on file Legal Sex Female 2:56 AM CLIP BAKER Gender Identity Not on file Sexual Orientation Not on file documented as of this encounter Plan of Treatment Not on file documented as of this encounter Visit Diagnoses Diagnosis Diaphragmatic hernia- Primary Diaphragmatic hernia without mention of obstruction or gangrene documented in this encounter Additional Health Concerns Infection Onset Date Last Indicated Resolved Time R/O COVID-19 09/16/2020 09/16/2020 09/16/2020 11:3 5 PM CLIP BAKER COVID-19 09/17/2020 09/17/2020 10/07/2020 8:08 PM CLIP BAKER documented as of this encounter Care Teams Culinary Chef Relationship Specialty Start Date End Date Roverto Arnold MD [address] [place] [address] PCP - General 12/10/09 documented as of this encounter
--- OUTSIDE RECORDS SUMMARY | 2025-06-23 11:44 | XMS_ITS | Encounter Summary ---
Author Organization [facility] Address [address] [place] [address] Care Team Providers Care Vibrator Operator Name Role Phone Roverto Arnold MD Primary Care Provider [phone] Encounter Details Date Type Department Care Team (Latest Contact Info) Description 09/01/2004 Outpatient Historical [facility] Cardiology- [place] [address] [place] [address] Charli Barahona MD NO ADDRESS ON FILE PRECORDIAL PAIN (Primary Dx); MIXED HYPERLIPIDEMIA; DIABETES MELLITUS TYPE II-UNCOMPL (CMS/HCC); CHR ISCHEMIC HRT DIS NEC Social History Tobacco Use Types Packs/Day Years Used Date Smoking Tobacco: Never Assessed Comments Unknown Sex and Gender Information Value Date Recorded Sex Assigned at Not on file Legal Sex Female 2:56 AM SHOTGUN SHELL REPRINTING UNIT OPERATOR Gender Identity Not on file Sexual Orientation Not on file documented as of this encounter Plan of Treatment Not on file documented as of this encounter Visit Diagnoses Diagnosis Precordial pain- Primary Mixed hyperlipidemia Type II or unspecified type diabetes mellitus without mention of complication, not stated as uncontrolled Other specified forms of chronic ischemic heart disease documented in this encounter Additional Health Concerns Infection Onset Date Last Indicated Resolved Time R/O COVID-19 09/16/2020 09/16/2020 09/16/2020 11:3 5 PM SHOTGUN SHELL REPRINTING UNIT OPERATOR COVID-19 09/17/2020 09/17/2020 10/07/2020 8:08 PM SHOTGUN SHELL REPRINTING UNIT OPERATOR documented as of this encounter Care Teams Vibrator Operator Relationship Specialty Start Date End Date Roverto Arnold MD [address] [place] [address] PCP - General 12/10/09 documented as of this encounter
--- OUTSIDE RECORDS SUMMARY | 2025-06-23 11:44 | XMS_ITS | Encounter Summary ---
Author Organization [facility] Address [address] [place] [address] Care Team Providers Care Arson And Bomb Investigator Name Role Phone Roverto Arnold MD Primary Care Provider [phone] Encounter Details Date Type Department Care Team (Late st Contact Info) Description 09/03/2003 Outpatient Historical [facility] Social History Tobacco Use Types Packs/Day Years Used Date Smoking Tobacco: Never Assessed Comments Unknown Sex and Gender Information Value Date Recorded Sex Assigned at Not on file Legal Sex Female 2:56 AM ZINC CHLORIDE OPERATOR Gender Identity Not on file Sexual Orientation Not on file documented as of this encounter Plan of Treatment Not on file documented as of this encounter Visit Diagnoses Not on filedocumented in this encounter Additional Health Concerns Infection Onset Date Last Indicated Resolved Time R/O COVID-19 09/16/2020 09/16/2020 09/16/2020 11:3 5 PM ZINC CHLORIDE OPERATOR COVID-19 09/17/2020 09/17/2020 10/07/2020 8:08 PM ZINC CHLORIDE OPERATOR documented as of this encounter Care Teams Arson And Bomb Investigator Relationship Specialty Start Date End Date Roverto Arnold MD [address] [place] [address] PCP - General 12/10/09 documented as of this encounter
--- OUTSIDE RECORDS SUMMARY | 2025-06-23 11:44 | XMS_ITS | Encounter Summary ---
Author Organization [facility] Address [address] [place] [address] Care Team Providers Care Coil Shaper Name Role Phone Roverto Arnold MD Primary Care Provider [phone] Encounter Details Date Type Department Care Team (Latest Contact Info) Description 01/26/2002 Outpatient Historical [facility] Cardiology- [place] [address] [place] [address] Charli Barahona MD NO ADDRESS ON FILE ANGINA PECTORIS NEC/NOS (Primary Dx); CHR ISCHEMIC HRT DIS NEC; Pure hypercholesterolem Social History Tobacco Use Types Packs/Day Years Used Date Smoking Tobacco: Never Assessed Comments Unknown Sex and Gender Information Value Date Recorded Sex Assigned at Not on file Legal Sex Female 2:56 AM PASSENGER SERVICE MANAGER Gender Identity Not on file Sexual Orientation Not on file documented as of this encounter Plan of Treatment Not on file documented as of this encounter Visit Diagnoses Diagnosis Other and unspecified angina pectoris- Primary Other specified forms of chronic ischemic heart disease Pure hypercholesterolem Pure hypercholesterolemia documented in this encounter Additional Health Concerns Infection Onset Date Last Indicated Resolved Time R/O COVID-19 09/16/2020 09/16/2020 09/16/2020 11:3 5 PM PASSENGER SERVICE MANAGER COVID-19 09/17/2020 09/17/2020 10/07/2020 8:08 PM PASSENGER SERVICE MANAGER documented as of this encounter Care Teams Coil Shaper Relationship Specialty Start Date End Date Roverto Arnold MD [address] [place] [address] PCP - General 12/10/09 documented as of this encounter
--- OUTSIDE RECORDS SUMMARY | 2025-06-23 11:44 | XMS_ITS | Encounter Summary ---
Author Organization [facility] Address [address] [place] [address] Care Team Providers Care Pickle Water Pump Operator Name Role Phone Roverto Arnold MD Primary Care Provider [phone] Encounter Details Date Type Department Care Team (Late st Contact Info) Description 10/30/2003 Outpatient Historical [facility] Social History Tobacco Use Types Packs/Day Years Used Date Smoking Tobacco: Never Assessed Comments Unknown Sex and Gender Information Value Date Recorded Sex Assigned at Not on file Legal Sex Female 2:56 AM BOX TRUCK DRIVER Gender Identity Not on file Sexual Orientation Not on file documented as of this encounter Plan of Treatment Not on file documented as of this encounter Visit Diagnoses Not on filedocumented in this encounter Additional Health Concerns Infection Onset Date Last Indicated Resolved Time R/O COVID-19 09/16/2020 09/16/2020 09/16/2020 11:3 5 PM BOX TRUCK DRIVER COVID-19 09/17/2020 09/17/2020 10/07/2020 8:08 PM BOX TRUCK DRIVER documented as of this encounter Care Teams Pickle Water Pump Operator Relationship Specialty Start Date End Date Roverto Arnold MD [address] [place] [address] PCP - General 12/10/09 documented as of this encounter
--- OUTSIDE RECORDS SUMMARY | 2025-06-23 11:44 | XMS_ITS | Encounter Summary ---
Author Organization [facility] Address [address] [place] [address] Care Team Providers Care Carpenter Packing Name Role Phone Roverto Arnold MD Primary Care Provider [phone] Encounter Details Date Type Department Care Team (Latest Contact Info) Description 01/01/2009 Ancillary Orders [facility] CT Scan [address] [place] [address] Patty Woods, LENS EXAMINER [address] [place] [address] Neck Pain; Low Back Pain Radiating to Both Legs; Dizziness Social History Tobacco Use Types Packs/Day Years Used Date Smoking Tobacco: Never Assessed Comments Unknown Sex and Gender Information Value Date Recorded Sex Assigned at Not on file Legal Sex Female 2:56 AM HOUSEKEEPING ASSOCIATE Gender Identity Not on file Sexual Orientation Not on file documented as of this encounter Plan of Treatment Not on file documented as of this encounter Results * CT CERVICAL SPINE WO CONTRAST (01/03/2009 1:43 PM CDT) Anatomical Region Laterality Modality Spine Computed Tomogra phy 01/03/2009 1:24 PM CDT Impressions 01/03/2009 3:40 PM CDT Impression: 1. 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 No acute fracture or subluxation. 2. Mild multilevel degenerative changes. sdm - uploaded from [employer] - Narrative 01/03/2009 3:40 PM CDT The straightening of cervical lordosis may be positional. No vertebral body height loss or subluxation. An oblong-shaped well corticated ossific fragment is positioned at the right superolateral border of the dens, most consistent with a chronic avulsed fracture fragment. Mild sclerosis within the body of the dens. The C2-C3 and C3-C4 disc space levels are unremarkable. C4-C5: Very mild disc space height loss. No significant central canal or foraminal stenosis. C5-C6: Very mild posterior endplate hypertrophic bone formation. C6-C7: A mild disc bulge partially effaces the anterior subarachnoid space. No significant foraminal narrowing. C7-T1: Unremarkable. Procedure Note Roverto Zhang MD - 01/03/2009 The straightening of cervical lordosis may be positional. No vertebralbody height loss or subluxation. An oblong-shaped well corticated ossific fragment is positioned at theright superolateral border of the dens, most consistent with a chronic avulsed fracture fragment. Mildsclerosis within the body of the dens. The C2-C3 and C3-C4 disc space levels are unremarkable. C4-C5: Very mild disc space height loss. No significant central canal orforaminal stenosis. C5-C6: Very mild posterior endplate hypertrophic bone formation. C6-C7: A mild disc bulge partially effaces the anterior subarachnoidspace. No significant foraminal narrowing. C7-T1: Unremarkable. IMPRESSION Impression: 1. 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 No acute fractureor subluxation. 2. Mild multilevel degenerative changes. sdm - uploaded from [employer] - Delaney Liu MD CT ORDERABLES Final Result documented in this encounter Visit Diagnoses Diagnosis Neck pain Cervicalgia Low Back Pain Radiating to Both Legs Thoracic or lumbosacral neuritis or radiculitis, unspecified Dizziness Dizziness and giddiness Neck pain Cervicalgia Low Back Pain Radiating to Both Legs Thoracic or lumbosacral neuritis or radiculitis, unspecified Dizziness Dizziness and giddiness documented in this encounter Additional Health Concerns Infection Onset Date Last Indicated Resolved Time R/O COVID-09/16/2020 09/16/2020 09/16/2020 11:3 5 PM HOUSEKEEPING ASSOCIATE COVID-19 09/17/2020 09/17/2020 10/07/2020 8:08 PM HOUSEKEEPING ASSOCIATE documented as of this encounter Care Teams Carpenter Packing Relationship Specialty Start Date End Date Roverto Arnold MD [address] [place] [address] PCP - General 12/10/09 documented as of this encounter
--- OUTSIDE RECORDS SUMMARY | 2025-06-23 11:44 | XMS_ITS | Encounter Summary ---
Author Organization [facility] Address [address] [place] [address] Care Team Providers Care Print Line Supervisor Name Role Phone Roverto Arnold MD Primary Care Provider [phone] Encounter Details Date Type Department Care Team (Latest Contact Info) Description 11/30/2006 Outpatient Historical [facility] Breast [place] [address] [place] [address] Other Screening Mammogram (Primary Dx) Social History Tobacco Use Types Packs/Day Years Used Date Smoking Tobacco: Never Assessed Comments Unknown Sex and Gender Information Value Date Recorded Sex Assigned at Not on file Legal Sex Female 2:56 AM EXTRACTING MACHINE OPERATOR Gender Identity Not on file Sexual Orientation Not on file documented as of this encounter Plan of Treatment Not on file documented as of this encounter Visit Diagnoses Diagnosis Other screening mammogram- Primary documented in this encounter Additional Health Concerns Infection Onset Date Last Indicated Resolved Time R/O COVID-19 09/16/2020 09/16/2020 09/16/2020 11:3 5 PM EXTRACTING MACHINE OPERATOR COVID-19 09/17/2020 09/17/2020 10/07/2020 8:08 PM EXTRACTING MACHINE OPERATOR documented as of this encounter Care Teams Print Line Supervisor Relationship Specialty Start Date End Date Roverto Arnold MD [facility] [address] [place], [place] [address] PCP - General 12/10/09 documented as of this encounter
--- OUTSIDE RECORDS SUMMARY | 2025-06-23 11:44 | XMS_ITS | Encounter Summary ---
Author Organization [facility] Address [address] [place] [address] Care Team Providers Care Senior Network Systems Engineer Name Role Phone Roverto Arnold MD Primary Care Provider [phone] Encounter Details Date Type Department Care Team (Latest Contact Info) Description 08/20/2004 Outpatient Historical [facility] Cardiovascular Services [address] [place] [address] [place] [address] Markie Ramírez MD NO ADDRESS ON FILE TRANSIENT CEREBRAL ISCHEMIA NOS (Primary Dx) Social History Tobacco Use Types Packs/Day Years Used Date Smoking Tobacco: Never Assessed Comments Unknown Sex and Gender Information Value Date Recorded Sex Assigned at Not on file Legal Sex Female 2:56 AM RACING CAR DRIVER Gender Identity Not on file Sexual Orientation Not on file documented as of this encounter Plan of Treatment Not on file documented as of this encounter Visit Diagnoses Diagnosis Unspecified transient cerebral ischemia- Primary documented in this encounter Additional Health Concerns Infection Onset Date Last Indicated Resolved Time R/O COVID-19 09/16/2020 09/16/2020 09/16/2020 11:3 5 PM RACING CAR DRIVER COVID-19 09/17/2020 09/17/2020 10/07/2020 8:08 PM RACING CAR DRIVER documented as of this encounter Care Teams Senior Network Systems Engineer Relationship Specialty Start Date End Date Roverto Arnold MD [address] [place] [address] PCP - General 12/10/09 documented as of this encounter
--- OUTSIDE RECORDS SUMMARY | 2025-06-23 11:44 | XMS_ITS | Encounter Summary ---
Author Organization [facility] Address [address] [place] [address] Care Team Providers Care Card Setter Name Role Phone Roverto Arnold MD Primary Care Provider [phone] Encounter Details Date Type Department Care Team (Latest Contact Info) Description 08/20/2004 Outpatient Historical [facility] General and Trauma Surgery-[address] [place] [address] Ted Chappell MD [address] [place] [phone] CAROTID ART OCCL-NO INFARCT (Primary Dx); HEADACHE Social History Tobacco Use Types Packs/Day Years Used Date Smoking Tobacco: Never Assessed Comments Unknown Sex and Gender Information Value Date Recorded Sex Assigned at Not on file Legal Sex Female 2:56 AM FRICTION SAW OPERATOR Gender Identity Not on file Sexual Orientation Not on file documented as of this encounter Plan of Treatment Not on file documented as of this encounter Visit Diagnoses Diagnosis Occlusion and stenosis of carotid artery without mention of cerebral infarction- Primary Headache(784.0) Headache documented in this encounter Additional Health Concerns Infection Onset Date Last Indicated Resolved Time R/O COVID-19 09/16/2020 09/16/2020 09/16/2020 11:3 5 PM FRICTION SAW OPERATOR COVID-19 09/17/2020 09/17/2020 10/07/2020 8:08 PM FRICTION SAW OPERATOR documented as of this encounter Care Teams Card Setter Relationship Specialty Start Date End Date Roverto Arnold MD [address] [place] [address] PCP - General 12/10/09 documented as of this encounter
--- OUTSIDE RECORDS SUMMARY | 2025-06-23 11:44 | XMS_ITS | Encounter Summary ---
Author Organization [facility] Address [address] [place] [address] Care Team Providers Care Side Laster Name Role Phone Roverto Arnold MD Primary Care Provider Encounter Details Date Type Department Care Team (Latest Contact Info) Description 10/21/2003 Outpatient Historical [facility] [address] [place] [phone] Jose G Talley MD [address] [place] [phone] DIABETES UNCOMPL ADULT-UNCONTRLLED (Primary Dx) Social History Tobacco Use Types Packs/Day Years Used Date Smoking Tobacco: Never Assessed Comments Unknown Sex and Gender Information Value Date Recorded Sex Assigned at Not on file Legal Sex Female 2:56 AM PATIENT ACCOUNT REPRESENTATIVE Gender Identity Not on file Sexual [...] COVID-19 09/16/2020 09/16/2020 09/16/2020 11:3 5 PM PATIENT ACCOUNT REPRESENTATIVE COVID-19 09/17/2020 09/17/2020 10/07/2020 8:08 PM PATIENT ACCOUNT REPRESENTATIVE documented as of this encounter Care Teams Side Laster Relationship Specialty Start Date End Date Roverto Arnold MD [address] [place] [address] PCP - General 12/10/09 documented as of this encounter
--- OUTSIDE RECORDS SUMMARY | 2025-06-23 11:45 | XMS_ITS | Encounter Summary ---
Author Organization [facility] Address [address] [place] [address] Care Team Providers Care Dockmaster Name Role Phone Roverto Arnold MD Primary Care Provider Encounter Details Date Type Department Care Team (Latest Contact Info) Description 06/21/2003 Outpatient Historical [facility] [address] [place] [place] [phone] Le Carmichael, DO [address] [place] [address] SCREENING MAMM-MAILG NEOPL-OTHER (Primary Dx) Social History Tobacco Use Types Packs/Day Years Used Date Smoking Tobacco: Never Assessed Comments Unknown Sex and Gender Information Value Date Recorded Sex Assigned at Not on file Legal Sex Female 2:56 AM ROTARY SAW OPERATOR Gender Identity Not on file Sexual Orientation Not on file documented as of this encounter Plan of Treatment Not on file documented as of this encounter Visit Diagnoses Diagnosis Other screening mammogram- Primary documented in this encounter Additional Health Concerns Infection Onset Date Last Indicated Resolved Time R/O COVID-19 09/16/2020 09/16/2020 09/16/2020 11:3 5 PM ROTARY SAW OPERATOR COVID-19 09/17/2020 09/17/2020 10/07/2020 8:08 PM ROTARY SAW OPERATOR documented as of this encounter Care Teams Dockmaster Relationship Specialty Start Date End Date Roverto Arnold MD [address] [place] [address] PCP - General 12/10/09 documented as of this encounter
--- OUTSIDE RECORDS SUMMARY | 2025-06-23 11:45 | XMS_ITS | Encounter Summary ---
Author Organization [facility] Address [address] [place] [address] Care Team Providers Care Fast Food Crew Member Name Role Phone Roverto Arnold MD Primary Care Provider [phone] Encounter Details Date Type Department Care Team (Latest Contact Info) Description 01/30/2003 Outpatient Historical [facility] Imaging Services [address] [place] [address] Le Carmichael, DO [address] [place] [address] CAROTID ART OCCL-NO INFARCT (Primary Dx) Social History Tobacco Use Types Packs/Day Years Used Date Smoking Tobacco: Never Assessed Comments Unknown Sex and Gender Information Value Date Recorded Sex Assigned at Not on file Legal Sex Female 2:56 AM JAVA WEBSPHERE DEVELOPER Gender Identity Not on file Sexual [...] COVID-19 09/16/2020 09/16/2020 09/16/2020 11:3 5 PM JAVA WEBSPHERE DEVELOPER COVID-19 09/17/2020 09/17/2020 10/07/2020 8:08 PM JAVA WEBSPHERE DEVELOPER documented as of this encounter Care Teams Fast Food Crew Member Relationship Specialty Start Date End Date Roverto Arnold MD [address] [place] [address] PCP - General 12/10/09 documented as of this encounter
--- OUTSIDE RECORDS SUMMARY | 2025-06-23 11:45 | XMS_ITS | Encounter Summary ---
Author Organization [facility] Address [address] [place] [address] Care Team Providers Care Rn Acute Care Name Role Phone Roverto Arnold MD Primary Care Provider [phone] Encounter Details Date Type Department Care Team (Latest Contact Info) Description 08/20/2003 Outpatient Historical [facility] [address] [place] [phone] Jose G Talley MD [address] [place] [phone] DIABETES UNCOMPL ADULT-UNCONTRLLED (Primary Dx) Social History Tobacco Use Types Packs/Day Years Used Date Smoking Tobacco: Never Assessed Comments Unknown Sex and Gender Information Value Date Recorded Sex Assigned at Not on file Legal Sex Female 2:56 AM PROJECT MANAGEMENT MANAGER Gender Identity Not on file Sexual [...] COVID-19 09/16/2020 09/16/2020 09/16/2020 11:3 5 PM PROJECT MANAGEMENT MANAGER COVID-19 09/17/2020 09/17/2020 10/07/2020 8:08 PM PROJECT MANAGEMENT MANAGER documented as of this encounter Care Teams Rn Acute Care Relationship Specialty Start Date End Date Roverto Arnold MD [address] [place] [address] PCP - General 12/10/09 documented as of this encounter
--- OUTSIDE RECORDS SUMMARY | 2025-06-23 11:45 | XMS_ITS | Encounter Summary ---
Author Organization [facility] Address [address] [place] [address] Care Team Providers Care Chimney Supervisor Brick Name Role Phone Roverto Arnold MD Primary Care Provider [phone] Encounter Details Date Type Department Care Team (Latest Contact Info) Description 05/18/2002 Outpatient Historical [facility] Gastroenterology[address] [place] [address] Xander Askew MD [address] [facility] [place] [address] [place] [address] ESOPHAGEAL REFLUX (Primary Dx) Social History Tobacco Use Types Packs/Day Years Used Date Smoking Tobacco: Never Assessed Comments Unknown Sex and Gender Information Value Date Recorded Sex Assigned at Not on file Legal Sex Female 2:56 AM FOUNDRY SUPERVISOR Gender Identity Not on file Sexual Orientation Not on file documented as of this encounter Plan of Treatment Not on file documented as of this encounter Visit Diagnoses Diagnosis Esophageal reflux- Primary documented in this encounter Additional Health Concerns Infection Onset Date Last Indicated Resolved Time R/O COVID-19 09/16/2020 09/16/2020 09/16/2020 11:3 5 PM FOUNDRY SUPERVISOR COVID-19 09/17/2020 09/17/2020 10/07/2020 8:08 PM FOUNDRY SUPERVISOR documented as of this encounter Care Teams Chimney Supervisor Brick Relationship Specialty Start Date End Date Roverto Arnold MD [address] [facility] [place] [place] [address] PCP - General 12/10/09 documented as of this encounter
--- OUTSIDE RECORDS SUMMARY | 2025-06-23 11:45 | XMS_ITS | Encounter Summary ---
Author Organization [facility] Address [address] [place] [address] Care Team Providers Care Supervisor Gate Services Name Role Phone Roverto Arnold MD Primary Care Provider [phone] Encounter Details Date Type Department Care Team (Latest Contact Info) Description 12/28/2006 Outpatient Historical [facility] Cardiology- [place] [address] [place] [address] Claire-Yoana Sow, ALEX [address] [address] Palpitations (Primary Dx); Other Dyspnea and Respiratory Abnormality; Unspecified Chronic Ischemic Heart Disease; Unspecified Peripheral Vascular Disease Social History Tobacco Use Types Packs/Day Years Used Date Smoking Tobacco: Never Assessed Comments Unknown Sex and Gender Information Value Date Recorded Sex Assigned at Not on file Legal Sex Female 2:56 AM LINSEED OIL REFINER Gender Identity Not on file Sexual Orientation Not on file documented as of this encounter Plan of Treatment Not on file documented as of this encounter Visit Diagnoses Diagnosis Palpitations- Primary Other dyspnea and respiratory abnormality Chronic ischemic heart disease, unspecified Peripheral vascular disease, unspecified documented in this encounter Additional Health Concerns Infection Onset Date Last Indicated Resolved Time R/O COVID-19 09/16/2020 09/16/2020 09/16/2020 11:3 5 PM LINSEED OIL REFINER COVID-19 09/17/2020 09/17/2020 10/07/2020 8:08 PM LINSEED OIL REFINER documented as of this encounter Care Teams Supervisor Gate Services Relationship Specialty Start Date End Date Roverto Arnold MD [address] [place] [address] PCP - General 12/10/09 documented as of this encounter
--- OUTSIDE RECORDS SUMMARY | 2025-06-23 11:45 | XMS_ITS | Encounter Summary ---
Author Organization [email or web address] Address [address] [place] [address] Phone Care Team Providers Care Retirement Administrator Name Role Phone Marie Askew MD Primary Care Provider [phone] Encounter Details Date Type Department Care Team ([facility] Contact Info) Description 02/11/2019 [email or web address] [address] [facility] [address] [place] [address] Aaron Ugarte MD [address] [place] [address] Chronic kidney disease, not otherwise specified Social History Tobacco Use Types Packs/Day Years Used Date Smoking Tobacco: Former Cigarettes Q uit: 04/28/1988 Comments Unknown Sex and Gender Information Value Date Recorded Sex Assigned at Not on file Legal Sex Female 12:45 PM EST Gender Identity Not on file Sexual Orientation Not on file documented as of this encounter Plan of Treatment Upcoming Encounters Date Type Department Care Team ([facility] Contact Info) Description 11/27/2025 2:50 PM PRACTICAL NURSE CLINICAL COORDINATOR Office [email or web address] [address] [place], [place] [address] Aaron Ugarte MD [address] [place] [address] documented as of this encounter Procedures Procedure Name Priority Date/Time Associated Diagnosis Comments RENAL FUNCTION PANEL Routine 02/13/2019 Chronic kidney disease, not otherwise specified documented in this encounter Results * (ABNORMAL) Renal function panel (02/13/2019) Albumin 4.3 3.5 - 5.0 g/dL [facility] BUN 16 4 - 21 mg/dL [facility] BUN/Creatinine Ratio 11.00 [facility] Calcium 9.6 8.7 - 10.7 mg/dL [facility] Chloride 100 99 - 108 [facility] Bicarbonate (CO2) 26 22 - 30 mmol/L [facility] Creatinine 1.45(A) 0.50 - 1.10 mg/dL [facility] eGFR 41.0 mL/min/1.7 3m*2 [facility] eGFR Non- 35.0 mL/min/1.7 3m*2 [facility] Glucose 249 [facility] Potassium 4.3 3.4 - 5.5 [facility] Sodium 137 137 - 147 [facility] Total Protein 7.0 6.4 - 8.2 G/DL [facility] Total Bilirubin 0.5 0.1 - 1.4 MG/DL [facility] AST (SGOT) 23 13 - 35 U/L [facility] ALT (SGPT) 17 7 - 35 U/L [facility] Alkaline Phosphatase 44 U/L [facility] Blood specimen (specimen) Venous blood / Unknown 02/13/2019 Narrative [facility] - 03/01/2019 7:57 AM CDT QUALITY CONTROL INSPECTOR HEADING labs [facility] [place] [address] [facility] [address] Ob Gyn Physician Assistant: Mcik Reynolds DO MPH CLIA: [id number] us Jana Melvin PASTE UP ARTIST LAB BLOOD ORDERABLES Jessica story Result [facility] documented in this encounter Visit Diagnoses Diagnosis Chronic kidney disease, not otherwise specified documented in this encounter Care Teams Retirement Administrator Relationship Specialty Start Date End Date Marie Askew MD [address] [place] [address] [place] [address] PCP - General Nurse Practitioner 03/05/22 documented as of this encounter
--- OUTSIDE RECORDS SUMMARY | 2025-06-23 11:45 | XMS_ITS | Encounter Summary ---
Author Organization [facility] Address [address] Stephen: [place] [address] Care Team Providers Care Account Support Associate Name Role Phone Roverto Arnold MD Primary Care Provider [phone] Encounter Details Date Type Department Care Team (Late st Contact Info) Description 01/27/2002 Outpatient Historical Charli Barahona MD NO ADDRESS ON FILE Social History Tobacco Use Types Packs/Day Years Used Date Smoking Tobacco: Never Assessed Comments Unknown Sex and Gender Information Value Date Recorded Sex Assigned at Not on file Legal Sex Female 2:56 AM ACCOUNTING SYSTEM EXPERT Gender Identity Not on file Sexual Orientation Not on file documented as of this encounter Plan of Treatment Not on file documented as of this encounter Visit Diagnoses Not on filedocumented in this encounter Additional Health Concerns Infection Onset Date Last Indicated Resolved Time R/O COVID-19 09/16/2020 09/16/2020 09/16/2020 11:3 5 PM ACCOUNTING SYSTEM EXPERT COVID-19 09/17/2020 09/17/2020 10/07/2020 8:08 PM ACCOUNTING SYSTEM EXPERT documented as of this encounter Care Teams Account Support Associate Relationship Specialty Start Date End Date Roverto Arnold MD [address] [facility] [place] [place] [address] PCP - General 12/10/09 documented as of this encounter
--- OUTSIDE RECORDS SUMMARY | 2025-06-23 11:45 | XMS_ITS | Encounter Summary ---
Author Organization [facility] Address [address] [place] [address] Care Team Providers Care Senior Procurement Manager Name Role Phone Roverto Arnold MD Primary Care Provider [phone] Encounter Details Date Type Department Care Team (Latest Contact Info) Description 08/06/2003 Outpatient Historical [facility] Cardiovascular Services [address] [place] [address] [place] [address] Le Carmichael, DO [address] [place] [address] CARDIOVAS SYS SYMP NEC (Primary Dx) Social History Tobacco Use Types Packs/Day Years Used Date Smoking Tobacco: Never Assessed Comments Unknown Sex and Gender Information Value Date Recorded Sex Assigned at Not on file Legal Sex Female 2:56 AM HOSPICE PHYSICIAN Gender Identity Not on file Sexual Orientation Not on file documented as of this encounter Plan of Treatment Not on file documented as of this encounter Visit Diagnoses Diagnosis Other symptoms involving cardiovascular system- Primary documented in this encounter Additional Health Concerns Infection Onset Date Last Indicated Resolved Time R/O COVID-19 09/16/2020 09/16/2020 09/16/2020 11:3 5 PM HOSPICE PHYSICIAN COVID-19 09/17/2020 09/17/2020 10/07/2020 8:08 PM HOSPICE PHYSICIAN documented as of this encounter Care Teams Senior Procurement Manager Relationship Specialty Start Date End Date Roverto Arnold MD [address] [facility] [place] [address] PCP - General 12/10/09 documented as of this encounter
--- OUTSIDE RECORDS SUMMARY | 2025-06-23 11:45 | XMS_ITS | Encounter Summary ---
Author Organization [facility] Address [address] [place] [address] Care Team Providers Care Spark Plug Tester Name Role Phone Roverto Arnold MD Primary Care Provider [phone] Encounter Details Date Type Department Care Team (Latest Contact Info) Description 07/27/2002 Outpatient Historical [facility] Cardiology- [place] [address] [place] [address] Xin Moe, ANP NO ADDRESS ON FILE CHR ISCHEMIC HRT DIS NEC (Primary Dx); Pure hypercholesterolem Social History Tobacco Use Types Packs/Day Years Used Date Smoking Tobacco: Never Assessed Comments Unknown Sex and Gender Information Value Date Recorded Sex Assigned at Not on file Legal Sex Female 2:56 AM ROVING MARKER Gender Identity Not on file Sexual Orientation Not on file documented as of this encounter Plan of Treatment Not on file documented as of this encounter Visit Diagnoses Diagnosis Other specified forms of chronic ischemic heart disease- Primary Pure hypercholesterolem Pure hypercholesterolemia documented in this encounter Additional Health Concerns Infection Onset Date Last Indicated Resolved Time R/O COVID-19 09/16/2020 09/16/2020 09/16/2020 11:3 5 PM ROVING MARKER COVID-19 09/17/2020 09/17/2020 10/07/2020 8:08 PM ROVING MARKER documented as of this encounter Care Teams Spark Plug Tester Relationship Specialty Start Date End Date Roverto Arnold MD [address] [place] [address] PCP - General 12/10/09 documented as of this encounter
--- OUTSIDE RECORDS SUMMARY | 2025-06-23 11:45 | XMS_ITS | Encounter Summary ---
Author Organization [facility] Address [address] [place] [address] Care Team Providers Care Chief Deputy Clerk/Bailiff Name Role Phone Roverto Arnold MD Primary Care Provider [phone] Encounter Details Date Type Department Care Team (Late st Contact Info) Description 05/25/2016 Ancillary Orders [facility] [place] [address] [place] [address] Bird Davis MD [address] [place] [address] Visit for screening mammogram (Primary Dx) Social History Tobacco Use Types Packs/Day Years Used Date Smoking Tobacco: Former Cigarettes 4 30 0 07/06/1958 - 07/06/1988 Smokeless Tobacco: Never Alcohol Use Standard Drinks/Week Comments No 0 (1 standard drink = 0.6 oz pur e alcohol) Comments No Sex and Gender Information Value Date Recorded Sex Assigned at Not on file Legal Sex Female 2:56 AM SEXUAL ASSAULT SOCIAL WORKER Gender Identity Not on file Sexual Orientation Not on file Occupation Industry Job Start Date Job End Date Not on file Not on file Not on file Not on file documented as of this encounter Plan of Treatment Not on file documented as of this encounter Results * MAMMO PRIOR STUDY (11/30/2006 6:30 AM SEXUAL ASSAULT SOCIAL WORKER) Narrative 05/25/2016 6:27 AM CDT This exam was auto finalized to allow images to be scanned to PACS. us Bird Davis MD DIAGNOSTIC IMAGING ORDERABL ES Final Result * MAMMO PRIOR STUDY (06/21/2003 6:30 AM CDT) Narrative 05/25/2016 6:27 AM CDT This exam was auto finalized to allow images to be scanned to PACS. us Bird Davis MD DIAGNOSTIC IMAGING ORDERABL ES Final Result documented in this encounter Visit Diagnoses Diagnosis Visit for screening mammogram Other screening mammogram Visit for screening mammogram Other screening mammogram Visit for screening mammogram- Primary Other screening mammogram documented in this encounter Additional Health Concerns Infection Onset Date Last Indicated Resolved Time R/O COVID-19 09/16/2020 09/16/2020 09/16/2020 11:3 5 PM SEXUAL ASSAULT SOCIAL WORKER COVID-19 09/17/2020 09/17/2020 10/07/2020 8:08 PM SEXUAL ASSAULT SOCIAL WORKER documented as of this encounter Care Teams Chief Deputy Clerk/Bailiff Relationship Specialty Start Date End Date Roverto Arnold MD [address] [place] [address] PCP - General 12/10/09 documented as of this encounter
--- OUTSIDE RECORDS SUMMARY | 2025-06-23 11:45 | XMS_ITS | Encounter Summary ---
Author Organization [facility] Address [address] [place] [address] Care Team Providers Care Case Management Manager Name Role Phone Roverto Arnold MD Primary Care Provider [phone] Encounter Details Date Type Department Care Team (Latest Contact Info) Description 02/19/2003 Outpatient Historical [facility] [address] [place] [address] [place] [address] Markie Ramírez MD NO ADDRESS ON FILE PREOP CARDIOVASC EXAM (Primary Dx) Social History Tobacco Use Types Packs/Day Years Used Date Smoking Tobacco: Never Assessed Comments Unknown Sex and Gender Information Value Date Recorded Sex Assigned at Not on file Legal Sex Female 2:56 AM RECEIVING OPERATOR Gender Identity Not on file Sexual Orientation Not on file documented as of this encounter Plan of Treatment Not on file documented as of this encounter Visit Diagnoses Diagnosis Pre-operative cardiovascular examination- Primary documented in this encounter Additional Health Concerns Infection Onset Date Last Indicated Resolved Time R/O COVID-19 09/16/2020 09/16/2020 09/16/2020 11:3 5 PM RECEIVING OPERATOR COVID-19 09/17/2020 09/17/2020 10/07/2020 8:08 PM RECEIVING OPERATOR documented as of this encounter Care Teams Case Management Manager Relationship Specialty Start Date End Date Roverto Arnold MD [address] [place] [address] PCP - General 12/10/09 documented as of this encounter
--- OUTSIDE RECORDS SUMMARY | 2025-06-23 11:45 | XMS_ITS | Encounter Summary ---
Author Organization [facility] Address [address] [place] [address] Care Team Providers Care Community Development Specialist Name Role Phone Roverto Arnold MD Primary Care Provider [phone] Encounter Details Date Type Department Care Team (Late st Contact Info) Description 02/23/2003 Emergency [facility] Emergency Department [address] [place] [address] Roverto Palacios DO NO ADDRESS ON FILE ACUTE LARYNGOTRACH NO OBSTR (Primary Dx) Social History Tobacco Use Types Packs/Day Years Used Date Smoking Tobacco: Never Assessed Comments Unknown Sex and Gender Information Value Date Recorded Sex Assigned at Not on file Legal Sex Female 2:56 AM CORRUGATOR OPERATOR Gender Identity Not on file Sexual Orientation Not on file documented as of this encounter Plan of Treatment Not on file documented as of this encounter Visit Diagnoses Diagnosis Acute laryngotracheitis without mention of obstruction- Primary documented in this encounter Additional Health Concerns Infection Onset Date Last Indicated Resolved Time R/O COVID-19 09/16/2020 09/16/2020 09/16/2020 11:3 5 PM CORRUGATOR OPERATOR COVID-19 09/17/2020 09/17/2020 10/07/2020 8:08 PM CORRUGATOR OPERATOR documented as of this encounter Care Teams Community Development Specialist Relationship Specialty Start Date End Date Roverto Arnold MD [address] [place] [address] PCP - General 12/10/09 documented as of this encounter
--- OUTSIDE RECORDS SUMMARY | 2025-06-23 11:45 | XMS_ITS | Encounter Summary ---
Author Organization [facility] Address [address] Stephen: [place] [address] Care Team Providers Care Tool Pusher Name Role Phone Roverto Arnold MD Primary Care Provider [phone] Encounter Details Date Type Department Care Team (Late st Contact Info) Description 02/01/2002 Outpatient Historical Charli Barahona MD NO ADDRESS ON FILE Social History Tobacco Use Types Packs/Day Years Used Date Smoking Tobacco: Never Assessed Comments Unknown Sex and Gender Information Value Date Recorded Sex Assigned at Not on file Legal Sex Female 2:56 AM TRANSCRIPTION Gender Identity Not on file Sexual Orientation Not on file documented as of this encounter Plan of Treatment Not on file documented as of this encounter Visit Diagnoses Not on filedocumented in this encounter Additional Health Concerns Infection Onset Date Last Indicated Resolved Time R/O COVID-19 09/16/2020 09/16/2020 09/16/2020 11:3 5 PM TRANSCRIPTION COVID-19 09/17/2020 09/17/2020 10/07/2020 8:08 PM TRANSCRIPTION documented as of this encounter Care Teams Tool Pusher Relationship Specialty Start Date End Date Roverto Arnold MD [address] [place] [facility] [place] [address] PCP - General 12/10/09 documented as of this encounter
--- OUTSIDE RECORDS SUMMARY | 2025-06-23 11:45 | XMS_ITS | Encounter Summary ---
Author Organization [facility] Address [address] [place] [address] Care Team Providers Care Manufacturing Chief Engineer Name Role Phone Roverto Arnold MD Primary Care Provider [phone] Encounter Details Date Type Department Care Team (Late st Contact Info) Description 02/20/2003 Inpatient Historical [facility] IN BED Markie Ramírez MD NO ADDRESS ON FILE CAROTID ART OCCL-NO INFARCT (Primary Dx) Social History Tobacco Use Types Packs/Day Years Used Date Smoking Tobacco: Never Assessed Comments Unknown Sex and Gender Information Value Date Recorded Sex Assigned at Not on file Legal Sex Female 2:56 AM SENIOR MANAGER MMCOE Gender Identity Not on file Sexual Orientation [...] 09/16/2020 09/16/2020 09/16/2020 11:3 5 PM SENIOR MANAGER MMCOE COVID-19 09/17/2020 09/17/2020 10/07/2020 8:08 PM SENIOR MANAGER MMCOE documented as of this encounter Care Teams Manufacturing Chief Engineer Relationship Specialty Start Date End Date Roverto Arnold MD [address] [place] [address] PCP - General 12/10/09 documented as of this encounter
--- OUTSIDE RECORDS SUMMARY | 2025-06-23 11:45 | XMS_ITS | Encounter Summary ---
Author Organization [facility] Address [address] [place] [address] Care Team Providers Care Snowmobile Mechanic Name Role Phone Roverto Arnold MD Primary Care Provider Encounter Details Date Type Department Care Team (Late st Contact Info) Description 03/08/2003 Outpatient Historical [facility] General and Trauma Surgery-[address] [place] [address] Ursula Arita, ALLIED HEALTH TEACHER [address] [place] [address] SURGERY FOLLOWUP, UNSPEC (Primary Dx) Social History Tobacco Use Types Packs/Day Years Used Date Smoking Tobacco: Never Assessed Comments Unknown Sex and Gender Information Value Date Recorded Sex Assigned at Not on file Legal Sex Female 2:56 AM PREASSEMBLER PRINTED CIRCUIT BOARD Gender Identity Not on file Sexual Orientation Not on file documented as of this encounter Plan of Treatment Not on file documented as of this encounter Visit Diagnoses Diagnosis Follow-up examination, following unspecified surgery- Primary documented in this encounter Additional Health Concerns Infection Onset Date Last Indicated Resolved Time R/O COVID-19 09/16/2020 09/16/2020 09/16/2020 11:3 5 PM PREASSEMBLER PRINTED CIRCUIT BOARD COVID-19 09/17/2020 09/17/2020 10/07/2020 8:08 PM PREASSEMBLER PRINTED CIRCUIT BOARD documented as of this encounter Care Teams Snowmobile Mechanic Relationship Specialty Start Date End Date Roverto Arnold MD [facility] [place] [address] PCP - General 12/10/09 documented as of this encounter
--- OUTSIDE RECORDS SUMMARY | 2025-06-23 11:45 | XMS_ITS | Encounter Summary ---
Author Organization [employer] Address [address] [facility] [address] [place] [address] Phone Care Team Providers Care Lawn Care Technician Name Role Phone Marie Askew MD Primary Care Provider [phone] Encounter Details Date Type Department Care Team ([facility] Contact Info) Description 09/01/2019 Orders Only [employer] [address] [place] [address] Jana Melvin NP [address] [facility] [employer] [address] Chronic kidney disease stage 3 (HCC) Social History Tobacco Use Types Packs/Day Years Used Date Smoking Tobacco: Former Cigarettes Q uit: 04/28/1988 Smokeless Tobacco: Never Alcohol Use Standard Drinks/Week Comments Never 0 (1 standard drink = 0.6 oz pur e alcohol) AUDIT-C Answer Date Recorded Frequency of Alcohol Consumption Never 03/01/2019 Average Number of Drinks Not on file 019 Frequency of Binge Drinking Not on file 05/2019 Comments Unknown Sex and Gender Information Value Date Recorded Sex Assigned at Not on file Legal Sex Female 12:45 PM EST Gender Identity Not on file Sexual Orientation Not on file documented as of this encounter Plan of Treatment Upcoming Encounters Date Type Department Care Team ([facility] Contact Info) Description 11/27/2025 2:50 PM PSYCHIATRY RESIDENT Office Visit [facility] [employer] [address] [place] [address] Aaron Ugarte MD [address] [facility] [address] [place] [address] documented as of this encounter Procedures Procedure Name Priority Date/Time Associated Diagnosis Comments URINE ALBUMIN / CREATININE RATIO Routine 08/28/2019 3:49 AM PSYCHIATRY RESIDENT Chronic kidney disease stage 3 (HCC) CBC Routine 08/28/2019 3:49 AM PSYCHIATRY RESIDENT Chronic kidney disease stage 3 (HCC) PTH, INTACT Routine 08/28/2019 3:24 AM PSYCHIATRY RESIDENT Chronic kidney disease stage 3 (HCC) documented in this encounter Results * Urine albumin / creatinine ratio (08/28/2019 3:49 AM PSYCHIATRY RESIDENT) Creatinine, Urine 197 mg/dL Protein/Creatin ine Ratio 24HR Urine 0.183 mg/mg Protein, Urine 36 Urine specimen (specimen) Urine specimen obtained by clean catch procedure / Unknown 08/28/2019 3:49 AM PSYCHIATRY RESIDENT Ellie Basurto MA - 09/04/2019 8:49 AM PSYCHIATRY RESIDENT [employer] [place] [address] [address] Medical Orderly: Mick Reynolds DO MPH CLIA: [id number] us Jana Melvin CASHIER GAMBLING LAB URINE ORDERABLES Jessica l Result * CBC (08/28/2019 3:49 AM PSYCHIATRY RESIDENT) WBC 5.4 K/uL Red Blood Cell Count 4.79 Hemoglobin 14.0 g/dL Hematocrit 41.1 % MCV 85.8 MCH 29.2 MCHC 34.1 RDW 13.0 Platelet Count 248 MPV 11.2 Absolute Neutrophils 3,580 Absolute Lymphocytes 1,123 Absolute Monocytes 524 Absolute Eosinophils 140 Absolute Basophils 32 Neutrophils 66.3 K/uL Lymphocytes 20.8 Monocytes 9.7 Eosinophils 2.6 Basophils 0.6 Blood specimen (specimen) Venous blood / Unknown 08/28/2019 3:49 AM PSYCHIATRY RESIDENT Ellie Basurto MA - 09/04/2019 8:52 AM PSYCHIATRY RESIDENT [facility] [place] [address] [address] [employer] [facility] [address] Medical Orderly: Mick Reynolds DO MPH CLIA: [id number] us Jana Melvin CASHIER GAM[employer] LAB BLOOD ORDERABLES Jessica l Result * PTH, intact (08/28/2019 3:24 AM PSYCHIATRY RESIDENT) Parathyroid Hormone, Intact 35 pg/mL Blood specimen (specimen) Venous blood / Unknown 08/28/2019 3:24 AM PSYCHIATRY RESIDENT Narrative Ellie Brooks MA - 09/04/2019 8:48 AM PSYCHIATRY RESIDENT [employer] [place] [address] [facility] [address] Medical Orderly: Mick Reynolds DO MPH CLIA: [id number] us Jana Melvin CASHIER GAM[employer] LAB BLOOD ORDERABLES Jessica l Result documented in this encounter Visit Diagnoses Diagnosis Chronic kidney disease stage 3 (HCC) documented in this encounter Care Teams Lawn Care Technician Relationship Specialty Start Date End Date Marie Askew MD [address] [place] [address] PCP - General Nurse Practitioner 03/05/22 documented as of this encounter
--- OUTSIDE RECORDS SUMMARY | 2025-06-23 11:45 | XMS_ITS | Clinical Summary ---
Author Organization [facility] Address [address] [place] [address] Care Team Providers Care Multimedia Engineer Name Role Phone Marie Askew MD Primary Care Provider [phone] Allergies Active Allergy Reactions Criticality Noted Date Comments Codeine Nausea And Vomiting 08/23/2014 Hydrocodone Itching 08/23/2014 Iodinated Contrast Media 02/28/2019 Morphine High 01/03/2009 Causes sweating and pain/Weakness all over Other High 01/03/2009 Burning in lungs Epinephrine High 01/03/2009 Burning in lungs Medications * This document contains information received from the source organization and may not represent a complete record from that organization. ranolazine (RANEXA) 500 MG 12 hr tablet Take 500 mg by mouth twice a day 12/01/19 19 Active pantoprazole (PROTONIX) 40 MG EC tablet Take 40 mg by mouth daily Active metoprolol tartrate (LOPRESSOR) 25 MG tablet Take 12.5 mg by mouth twice a day 12/12/19 19 Active levothyroxine (SYNTHROID, LEVOTHROID) 50 MCG tablet Take 50 mcg by mouth 1 (one) time each day Active fenofibrate (TRICOR) 145 MG tablet Take 1 tablet by mouth 1 (one) time each day 05/31/20 18 Active clopidogrel (PLAVIX) 75 MG tablet Take 1 tablet by mouth 1 (one) time each day Active albuterol HFA (PROVENTIL HFA;VENTOLIN HFA) 108 (90 Base) MCG/ACT inhaler Inhale 2 puffs 4 (four) times a day As needed Active aspirin (ST MICHELET) 81 MG EC tablet Take 81 mg by mouth daily 06/11/20 15 Active DILTIAZEM CD 120 MG 24 hr capsule Take 1 capsule (120 mg total) by mouth 1 (one) time each day 1 capsule 03/01/20 19 Active UNABLE TO FIND if needed oxygen Active furosemide (LASIX) 20 MG tablet Take 1 tablet (20 mg total) by mouth 1 (one) time each day if needed (for swelling) 30 tablet 5 08/28/20 20 Active potassium chloride 10 MEQ CR tabletIndicatio ns:Stage 3b chronic kidney disease (HCC) TAKE 1 TABLET BY MOUTH 1 TIME EACH DAY IF NEEDED(FOR DIURETICS) 30 tablet 5 08/07/20 22 Active cetirizine (ZyrTEC) 10 MG tablet Take 10 mg by mouth 1 (one) time each day if needed 06/12/20 22 Active Farxiga 10 MG tablet Take 10 mg by mouth 1 (one) time each day 08/09/20 22 Active temazepam (RESTORIL) 15 MG capsule Take 1 capsule by mouth at night if needed 08/11/20 22 Active docusate sodium (COLACE) 100 MG capsule Take 100 mg by mouth every night PRN Active fluconazole (DIFLUCAN) 100 MG tablet Take 100 mg by mouth every 7 (seven) days Active LORazepam (ATIVAN) 0.5 MG tablet TAKE 1 TABLET BY MOUTH EVERY 8 HOURS NEEDED FOR ANXIETY NEEDED AGITATION 08/30/20 23 Active nitroglycerin (NITROSTAT) 0.4 MG SL tablet if needed 08/17/20 23 Active ketoconazole (NIZORAL) 2 % cream APPLY TO BOTH CORNERS OF MOUTH TWICE DAILY NEEDED 02/24/20 25 Active nystatin (MYCOSTATIN) 080289 UNIT/ML suspension 04/19/20 25 Active pravastatin (PRAVACHOL) 20 MG tablet Take 20 mg by mouth 1 (one) time each day 04/19/20 25 Active isosorbide dinitrate (ISORDIL) 30 MG tablet Take 30 mg by mouth at bed time 03/27/20 25 Active rosuvastatin (CRESTOR) 10 MG tablet Take 10 mg by mouth every night 05/31/20 18 025 Discontinued (Alternate therapy) isosorbide mononitrate (IMDUR) 30 MG 24 hr tablet Take 30-60 mg by mouth in the morning. 60 am 30 pm. 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 Continue current medications including ACEi. Stage 3b chronic kidney disease 03/01/2019 Assessment & Plan (03/01/2019 5:28 PM CDT): GFR stable over time. No changes at this time. BP controlled. See back in 6 months. Patient is aware of CKD and current GFR. Patient is aware of importance of adequate fluid intake, low sodium diet and avoiding NSAID's. Type 2 diabetes mellitus wit h diabetic chronic kidney disease 03/01/2019 Assessment & Plan (03/01/2019 5:30 PM CDT): Diabetes with better control on insulin. No changes at this time. Follows with PCP. Gastroesophageal reflux disease 06/10/2010 Assessment & Plan (03/01/2019 5:29 PM CDT): She has history of ulcers per her report. Continues on PPI, states H2 blockers did not control acid reflux symptoms. 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) 05/21/2025 Documentation Only [facility] [address] [place] [address] Isabella Rojas MA 05/14/2025 Telephone [facility] [address] [place] [address] Aaron Ugarte MD 05/14/2025 Documentation Only [facility] [address] [place] [address] Desirae Weiner from Last 3 Months Immunizations Immunization Administration Dates Next Due Influenza Split High Dose Pr eservative Free IM 06/27/2019,05/25/2017,06/25/2016 Influenza TIV (IM) 05/25/2012 Pneumococcal Conjugate 13-Valent 02/27/2008 Family History Medical History Relation Comments Hypertension Father 2 Cancer Mother 2 Diabetes Mother 2 Hypertension Mother 2 Stroke Mother 2 Relation Status Comments Father 1 Father 2 Mother 1 Mother 2 Social History Tobacco Use Types Packs/Day Years Used Date Smoking Tobacco: Former Cigarettes Q uit: 04/28/1988 Passive Smoke Exposure: Past Smokeless Tobacco: Never Tobacco Cessation:Counseling Given: Not Answered Alcohol Use Standard Drinks/Week Comments Never 0 (1 standard drink = 0.6 oz pur e alcohol) AUDIT-C Answer Date Recorded Frequency of Alcohol Consumption Never 03/01/2019 Average Number of Drinks Not on file 019 Frequency of Binge Drinking Not on file 05/2019 Comments No Sex and Gender Information Value Date Recorded Sex Assigned at Not on file Legal Sex Female 12:45 PM EST Gender Identity Not on file Sexual Orientation Not on file Last Filed Vital Signs Vital Sign Reading Time Taken Comments Blood Pressure 116/70 05/30/2025 3:29 PM CDT Pulse 73 05/30/2025 3:29 PM CDT Temperature 36.7 C (98 F) 03/04/2021 1:49 PM CDT Respiratory Rate - - Oxygen Saturation 97% 05/30/2025 3:29 PM CDT Inhaled Oxygen Concentration - - Weight 49.5 kg (109 lb 0.5 oz) 05/30/2025 3:29 P M CDT Height 157.5 cm (5' 2 ) 05/30/2025 3:29 PM CDT Body Mass Index 19.94 05/30/2025 3:29 PM CDT Plan of Treatment Upcoming Encounters Date Type Department Care Team (Late st Contact Info) Description 11/27/2025 2:50 PM CURB SETTER Office Visit [facility] [address] [place], [place] [address] Aaron Ugarte MD [address] [place] [address] Health Maintenance Due Date Last Done Comments Pneumococcal Vaccine: 50+ Years (2 of 2 - PPSV23, PCV20, or PCV21) 04/23/2008 02/27/2008 Diabetes: Ophthalmology Exam 03/26/2019 Diabetes: Pedal Pulse Checked 03/26/2019 Diabetes: Sensory Foot Exam 03/26/2019 Diabetes: Visual Foot Exam 03/26/2019 Diabetes: Hemoglobin A1C 11/30/2023 023, 06/12/2022, 08/27/2021, Additional history exists Influenza Vaccine (#1) 2025 9, 05/25/2017, 06/25/2016, Additional history exists Pneumococcal Vaccine: Peds (0 to 5 Years) and At-Risk Patients (6 to 49 Years) Discontinued 02/27/2008 Hepatitis B Vaccine Aged Out No longe r eligible based on patient's age to complete this topic Procedures Procedure Name Priority Date/Time Associated Diagnosis Comments CBC Routine 05/21/2025 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 Stage 3b chronic kidney disease (HCC) Gastroesophageal reflux disease Vitamin D deficiency, not otherwise specified RENAL FUNCTION PANEL Routine 05/21/2025 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 Stage 3b chronic kidney disease (HCC) Gastroesophageal reflux disease Vitamin D deficiency, not otherwise specified PTH, INTACT Routine 05/21/2025 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 Stage 3b chronic kidney disease (HCC) Gastroesophageal reflux disease Vitamin D deficiency, not otherwise specified URINE ALBUMIN / CREATININE RATIO Routine 05/21/2025 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 Stage 3b chronic kidney disease (HCC) Gastroesophageal reflux disease Vitamin D deficiency, not otherwise specified HEMOGLOBIN A1C (EXTERNAL RESULT ENTRY) Routine 08/30/2023 from Last 3 Months or Most Recently Relevant to Health Maintenance Results * Albumin / Creatinine Urine Ratio (05/21/2025) Albumin, Urine 2 mg/dL PRINT /EXTERNAL (NON-INTERFACE D LABS) Creatinine, Urine Random 35 mg/dL PRINT/EXTERNAL (NON-INTERFACE D LABS) Alb/Creat Ratio, Ur 57 mg/g Creat PRINT/EXTERNAL (NON-INTERFACE D LABS) Urine Urine specimen obtained by clean catch procedure / Unknown 05/21/2025 Narrative PRINT/EXTERNAL (NON-INTERFACED LABS) - 05/21/2025 [place] [address] Jana Melvin MANAGER ADULT LAB URINE ORDERABLES Jessica story Result PRINT/EXTERNAL (NON-INTERFACED LABS) * CBC (05/21/2025) WBC 7.42 K/uL PRINT/EXTE RNAL (NON-INTERFACE D LABS) Red Blood Cell Count 5.77 PRINT/EXTERNAL (NON-INTERFACE D LABS) Hemoglobin 13.80 g/dL PRINT/EXT ERNAL (NON-INTERFACE D LABS) Hematocrit 44 % PRINT/EXT ERNAL (NON-INTERFACE D LABS) MCV 76.3 PRINT/EXTE RNAL (NON-INTERFACE D LABS) MCH 23.9 PRINT/EXTE RNAL (NON-INTERFACE D LABS) MCHC 31.4 PRINT/EXTE RNAL (NON-INTERFACE D LABS) RDW 18.9 PRINT/EXTE RNAL (NON-INTERFACE D LABS) Platelet Count 292 PRINT /EXTERNAL (NON-INTERFACE D LABS) MPV 11.1 PRINT/EXTE RNAL (NON-INTERFACE D LABS) Absolute Neutrophils 5.26 PRINT/EXTERNAL (NON-INTERFACE D LABS) Absolute Lymphocytes 1.4 PRINT/EXTERNAL (NON-INTERFACE D LABS) Absolute Monocytes 0.6 PRINT/EXTERNAL (NON-INTERFACE D LABS) Absolute Eosinophils 0.1 PRINT/EXTERNAL (NON-INTERFACE D LABS) Absolute Basophils 0.0 PRINT/EXTERNAL (NON-INTERFACE D LABS) Neutrophils 70.9 K/uL PRINT/EX TERNAL (NON-INTERFACE D LABS) Lymphocytes 18.5 PRINT/EX TERNAL (NON-INTERFACE D LABS) Monocytes 8.6 PRINT/EXTE RNAL (NON-INTERFACE D LABS) Eosinophils 1.2 PRINT/EX TERNAL (NON-INTERFACE D LABS) Basophils 0.4 PRINT/EXTE RNAL (NON-INTERFACE D LABS) Blood Venous blood / Unknown 05/21/2025 Narrative PRINT/EXTERNAL (NON-INTERFACED LABS) - 05/21/2025 [place] [address] Jana Melvin NP LAB BLOOD ORDERABLES Jessica l Result Performing Organization Address [place] Co de Phone Number PRINT/EXTERNAL (NON-INTERFACED LABS) * PTH, intact (05/21/2025) Parathyroid Hormone, Intact 41 pg/mL PRINT/WATER TRUCK DRIVER AL (NON-INTERFACE D LABS) Blood Venous blood / Unknown 05/21/2025 Narrative PRINT/EXTERNAL (NON-INTERFACED LABS) - 05/21/2025 [place] [address] Jana Melvin MANAGER ADULT LAB BLOOD ORDERABLES Jessica l Result Performing Organization Address [facility]/ZIP Co de Phone Number PRINT/EXTERNAL (NON-INTERFACED LABS) * Renal function panel (05/21/2025) Glucose 147 mg/dL PRINT/EXTE RNAL (NON-INTERFACE D LABS) BUN 12 mg/dL PRINT/EXTE RNAL (NON-INTERFACE D LABS) Creatinine 1.5 mg/dL PRINT/EXT ERNAL (NON-INTERFACE D LABS) Sodium 138 mEq/L PRINT/EXTE RNAL (NON-INTERFACE D LABS) Potassium 4.2 mEq/L PRINT/EXTE RNAL (NON-INTERFACE D LABS) Chloride 99 PRINT/EXTE RNAL (NON-INTERFACE D LABS) Carbon Dioxide 27 mmol/L PRINT /EXTERNAL (NON-INTERFACE D LABS) Calcium 10.1 mg/dL PRINT/EXTE RNAL (NON-INTERFACE D LABS) Phosphorus, Serum 2.8 mg/dL PRINT/EXTERNAL (NON-INTERFACE D LABS) Albumin (Blood) 4.4 g/dL PRIN T/EXTERNAL (NON-INTERFACE D LABS) eGFR Non-Afr Polish 35 PRINT/EXTERNAL (NON-INTERFACE D LABS) Blood Venous blood / Unknown 05/21/2025 Narrative PRINT/EXTERNAL (NON-INTERFACED LABS) - 05/21/[address] [address] Jana Melvin MANAGER ADULT LAB BLOOD ORDERABLES Jessica story Result PRINT/EXTERNAL (NON-INTERFACED LABS) * Hemoglobin A1C (08/30/2023) Hemoglobin A1C 7.0 Blood specimen (specimen) Venous blood / Unknown 08/30/2023 Narrative Isabella Rojas MA - 08/30/2023 [facility] External Provider LAB BLOOD ORDERABLES Final Result from Last 3 Months or Most Recently Relevant to Health Maintenance Insurance Medicaid [place] ([id number]) Dual Complete Choice [place] Care Teams Multimedia Engineer Relationship Specialty Start Date End Date Marie Askew MD [address] [place] [id number] PCP - General Nurse Practitioner 03/05/22
--- OUTSIDE RECORDS SUMMARY | 2025-06-23 11:45 | XMS_ITS | Encounter Summary ---
Author Organization [facility] Address [address] [place] [address] Care Team Providers Care Harpsichord Maker Name Role Phone Roverto Arnold MD Primary Care Provider [phone] Encounter Details Date Type Department Care Team (Latest Contact Info) Description 01/29/2003 Outpatient Historical [facility] Cardiology- [place] [address] [place] [address] Charli Barahona MD NO ADDRESS ON FILE ANGINA PECTORIS NEC/NOS (Primary Dx); CHR ISCHEMIC HRT DIS NEC; MIXED HYPERLIPIDEMIA Social History Tobacco Use Types Packs/Day Years Used Date Smoking Tobacco: Never Assessed Comments Unknown Sex and Gender Information Value Date Recorded Sex Assigned at Not on file Legal Sex Female 2:56 AM RADIO DIRECTOR Gender Identity Not on file Sexual Orientation [...] COVID-19 09/16/2020 09/16/2020 09/16/2020 11:3 5 PM RADIO DIRECTOR COVID-19 09/17/2020 09/17/2020 10/07/2020 8:08 PM RADIO DIRECTOR documented as of this encounter Care Teams Harpsichord Maker Relationship Specialty Start Date End Date Roverto Arnold MD [address] [place] [address] PCP - General 12/10/09 documented as of this encounter
--- OUTSIDE RECORDS SUMMARY | 2025-06-23 11:45 | XMS_ITS | Encounter Summary ---
Author Organization [facility] Address [address] [place] [address] Care Team Providers Care Elderly Sitter Name Role Phone Roverto Arnold MD Primary Care Provider [phone] Encounter Details Date Type Department Care Team (Latest Contact Info) Description 07/20/2003 Outpatient Historical [facility] Cardiology- [place] [address] [place] [address] Claire-Yoana Sow, ALEX [address] [facility] [address] [place] [address] PRECORDIAL PAIN (Primary Dx); CORON ATHEROSCL AK CHIN CORON VESSEL; MIXED HYPERLIPIDEMIA Social History Tobacco Use Types Packs/Day Years Used Date Smoking Tobacco: Never Assessed Comments Unknown Sex and Gender Information Value Date Recorded Sex Assigned at Not on file Legal Sex Female 2:56 AM BEET FLUMER Gender Identity Not on file Sexual Orientation Not on file documented as of this encounter Plan of Treatment Not on file documented as of this encounter Visit Diagnoses Diagnosis Precordial pain- Primary Coronary atherosclerosis of [place] coronary artery Mixed hyperlipidemia documented in this encounter Additional Health Concerns Infection Onset Date Last Indicated Resolved Time R/O COVID-19 09/16/2020 09/16/2020 09/16/2020 11:3 5 PM BEET FLUMER COVID-19 09/17/2020 09/17/2020 10/07/2020 8:08 PM BEET FLUMER documented as of this encounter Care Teams Elderly Sitter Relationship Specialty Start Date End Date Roverto Arnold MD [address] [place] [address] PCP - General 12/10/09 documented as of this encounter
--- OUTSIDE RECORDS SUMMARY | 2025-06-23 11:45 | XMS_ITS | Encounter Summary ---
Author Organization [facility] Address [address] [place] [address] Phone Care Team Providers Care Solder Making Supervisor Name Role Phone Marie Askew MD Primary Care Provider [phone] Reason for Visit * Reason Comments Med Refill Encounter Details Date Type Department Care Team ([facility] Contact Info) Description 10/06/2021 Refill [facility] [address] [place] [address] Lauren Gross NP [address] [place] [address] Stage 3b chronic kidney disease (HCC) Social History Tobacco Use Types Packs/Day [...] Encounters Date Type Department Care Team ([facility] Contact Info) Description 11/27/2025 2:50 PM AIX ADMINISTRATOR Office Visit [facility] [address] [place], [place] [id number] Aaron Ugarte MD [address] [place] [address] documented as of this encounter Visit Diagnoses Diagnosis Stage 3b chronic kidney disease (HCC) documented in this encounter Care Teams Solder Making Supervisor Relationship Specialty Start Date End Date Marie Askew MD [address] [address] PCP - General Nurse Practitioner 03/05/22 documented as of this encounter
--- OUTSIDE RECORDS SUMMARY | 2025-06-23 11:45 | XMS_ITS | Encounter Summary ---
Author Organization [facility] Address [address] Stephen: [place] [address] Care Team Providers Care Pouncing Machine Operator Name Role Phone Roverto Arnold MD Primary Care Provider [phone] Encounter Details Date Type Department Care Team (Late st Contact Info) Description 04/26/2002 Inpatient Historical Scotty Kapadia MD [address] [place] [address] Social History Tobacco Use Types Packs/Day Years Used Date Smoking Tobacco: Never Assessed Comments Unknown Sex and Gender Information Value Date Recorded Sex Assigned at Not on file Legal Sex Female 2:56 AM CLINICAL STAFF PHARMACIST Gender Identity Not on file Sexual Orientation Not on file documented as of this encounter Plan of Treatment Not on file documented as of this encounter Visit Diagnoses Not on filedocumented in this encounter Additional Health Concerns Infection Onset Date Last Indicated Resolved Time R/O COVID-19 09/16/2020 09/16/2020 09/16/2020 11:3 5 PM CLINICAL STAFF PHARMACIST COVID-19 09/17/2020 09/17/2020 10/07/2020 8:0 8 PM CLINICAL STAFF PHARMACIST documented as of this encounter Care Teams Pouncing Machine Operator Relationship Specialty Start Date End Date Roverto Arnold MD [address] [place] [address] PCP - General 12/10/09 documented as of this encounter
--- OUTSIDE RECORDS SUMMARY | 2025-06-23 11:45 | XMS_ITS | Encounter Summary ---
Author Organization [facility] Address [address] [place] [address] Care Team Providers Care Credit And Collections Analyst Name Role Phone Roverto Arnold MD Primary Care Provider [phone] Encounter Details Date Type Department Care Team (Latest Contact Info) Description 01/30/2003 Outpatient Historical [facility] General and Trauma Surgery-[address] [place] [address] CAROTID ART OCCL-NO INFARCT (Primary Dx) Social History Tobacco Use Types Packs/Day Years Used Date Smoking Tobacco: Never Assessed Comments Unknown Sex and Gender Information Value Date Recorded Sex Assigned at Not on file Legal Sex Female 2:56 AM MESSENGER OFFICE Gender Identity Not on file Sexual Orientation Not on file documented as of this encounter Plan of Treatment Not on file documented as of this encounter Visit Diagnoses Diagnosis Occlusion and stenosis of carotid artery without mention of cerebral infarction- Primary documented in this encounter Additional Health Concerns Infection Onset Date Last Indicated Resolved Time R/O COVID-19 09/16/2020 09/16/2020 09/16/2020 11:3 5 PM MESSENGER OFFICE COVID-19 09/17/2020 09/17/2020 10/07/2020 8:08 PM MESSENGER OFFICE documented as of this encounter Care Teams Credit And Collections Analyst Relationship Specialty Start Date End Date Roverto Arnold MD [address] [place] [address] PCP - General 12/10/09 documented as of this encounter
--- OUTSIDE RECORDS SUMMARY | 2025-06-23 11:45 | XMS_ITS | Encounter Summary ---
Author Organization [facility] Address [address] [place] [address] Care Team Providers Care Marketing Clerk Name Role Phone Roverto Arnold MD Primary Care Provider [phone] Encounter Details Date Type Department Care Team (Latest Contact Info) Description 04/05/2003 Outpatient Historical [facility] General and Trauma Surgery-[address] [place] [address] ABN AUDITORY PERCEPT NOS (Primary Dx) Social History Tobacco Use Types Packs/Day Years Used Date Smoking Tobacco: Never Assessed Comments Unknown Sex and Gender Information Value Date Recorded Sex Assigned at Not on file Legal Sex Female 2:56 AM WEATHER TEACHER Gender Identity Not on file Sexual Orientation Not on file documented as of this encounter Plan of Treatment Not on file documented as of this encounter Visit Diagnoses Diagnosis Abnormal auditory perception, unspecified- Primary documented in this encounter Additional Health Concerns Infection Onset Date Last Indicated Resolved Time R/O COVID-19 09/16/2020 09/16/2020 09/16/2020 11:3 5 PM WEATHER TEACHER COVID-19 09/17/2020 09/17/2020 10/07/2020 8:08 PM WEATHER TEACHER documented as of this encounter Care Teams Marketing Clerk Relationship Specialty Start Date End Date Roverto Arnold MD [address], [place] [address] PCP - General 12/10/09 documented as of this encounter
--- NOTE | 2025-06-23 11:46 | W.ED.CHESTPA ---
HPI - Chest Pain General: Chief Complaint: Chest Pain Stated Complaint: chest pain Time Seen by Provider: 06/23/25 11:41 Source: patient Mode of arrival: ambulatory Limitations: no limitations History of Present Illness: 79-year-old female history of coronary disease states she has been having chest pain for the last 2 days. She states the pain is much worse with exertion she has taken nitro at home with relief states her pain has now resolved but had pain before arrival she denies any shortness of breath denies any nausea or vomiting had some radiation of pain to her neck and arm. Associated symptoms: Deny abdominal pain, dyspnea, fever(s), nausea or vomiting Related Data Home Medications ?Medication ?Instructions ?Recorded ?Confirmed clopidogrel 75 mg tablet 75 mg PO DAILY 09/06/20 02/04/24 diltiazem HCl 120 mg 120 mg PO DAILY 09/06/20 02/04/24 capsule,extended release 24 hr fenofibrate nanocrystallized 145 145 mg PO DAILY 09/06/20 02/04/24 mg tablet furosemide 20 mg tablet 20 mg PO DAILY PRN Edema 09/06/20 02/04/24 insulin detemir U-100 100 unit/mL 25 unit SUBCUT DAILY PRN 09/06/20 02/04/24 (3 mL) subcutaneous pen Hypoglycemia isosorbide mononitrate 30 mg See Rx Instructions .Route .COMPLEX 09/06/20 02/04/24 tablet,extended release 24 hr levothyroxine 50 mcg tablet 50 mcg PO DAILY 09/06/20 02/04/24 pantoprazole 40 mg tablet,delayed 40 mg PO DAILY 09/06/20 02/04/24 release potassium chloride 10 mEq 10 meq PO DAILY PRN with lasix 09/06/20 02/04/24 tablet,extended release ranolazine 500 mg tablet,extended 500 mg PO BID 09/06/20 02/04/24 release,12 hr rosuvastatin 10 mg tablet 10 mg PO BEDTIME 09/06/20 02/04/24 albuterol sulfate 90 mcg/actuation 2 puff inhalation QID 11/18/23 02/04/24 aerosol inhaler dapagliflozin propanediol 10 mg 10 mg PO DAILY 11/18/23 02/04/24 tablet (Farxiga) temazepam 30 mg capsule 30 mg PO BEDTIME 11/18/23 02/04/24 metoprolol tartrate 25 mg tablet 25 mg PO BID 02/04/24 02/04/24 pregabalin 75 mg capsule 75 mg PO BID 02/04/24 02/04/24 Previous Rx's ?Medication ?Instructions ?Recorded alprazolam 0.5 mg tablet 0.5 mg PO BID PRN anxiety #14 tabs 03/07/23 Allergies Allergy/AdvReac Type Severity Reaction Status Date / Time codeine Allergy ADR-Vomitin Verified 02/04/24 15:41 g epinephrine (From Primatene Allergy ALGY-Difficulty Verified 02/04/24 15:41 Mist) Breathing morphine Allergy ALGY-Redness Verified 02/04/24 15:41 of Skin Review of Systems Const: Denies: fever(s), chills, body aches or change in appetite ENMT: Denies: throat pain or dental pain Card: Reports: chest pain Resp: Denies: dyspnea GI: Denies: abdominal pain, nausea, vomiting or diarrhea : Denies: dysuria Musc: Denies: neck pain or back pain Skin/Breast: Denies: rash Neuro: Denies: headache(s) Psych: Denies: depression Mohit/Lymph: Denies: easy bruising All/Imm: Denies: urticaria PFSH ED PFSH: Medical History Recurrent UTI Chronic kidney disease (CKD) -on gentle IVF due to anticipated coronary angiogram -baseline Cr appears to be around 1.2-1.3 Dyslipidemia associated with type 2 diabetes mellitus -continue statin Benign essential hypertension with target blood pressure below 140/90 -amlodipine added for more optimal BP control Atherosclerotic heart disease of [place] coronary artery with unstable angina pectoris -s/p bypass x 4, stenting x 3 Peripheral neuropathy [place] spotted fever Hypothyroidism Sleep apnea GERD (gastroesophageal reflux disease) Coronary artery disease Diabetes Kidney disease, chronic, stage II (GFR 60-89 ml/min) Cholecystitis Surgical History History of right-sided carotid endarterectomy Hx of cholecystectomy S/P CABG (coronary artery bypass graft) Patient reports 3 times Family History Father , AT AGE 74 Natural with unknown cause Mother , AT AGE 81 Heart attack Other Family history non-contributory Social History Smoking and tobacco/nicotine status: former use of tobacco/nicotine Alcohol intake: never Substance/Drug Use: never Marital status: Current occupational status: retired Physical Exam Const: COMMON NORMALS: no acute distress, patient oriented x3 and healthy appearing HENMT: COMMON NORMALS: normocephalic and atraumatic HEAD & SCALP: normocephalic and atraumatic Eye: COMMON NORMALS: Equal, round and reactive pupils present and EOMs intact bilaterally PUPIL: Yes Equal, round and reactive pupils present Neck/C-Spine: COMMON NORMALS: full ROM and supple Chest: COMMONS NORMALS: normal inspection of the chest and normal palpation of entire chest wall Resp: COMMON NORMALS: normal respiratory effort, No retractions, No use of accessory muscles and clear to auscultation bilaterally AUSCULTATION: clear to auscultation bilaterally Cardio: COMMON NORMALS: regular rate, regular rhythm and No murmurs present (Cardio) RATE: regular rate RHYTHM: regular rhythm GI: COMMON NORMALS: Normal to inspection, nondistended, normoactive bowel sounds present, Soft to palpation, non-tender and no masses PALPATION: Yes Soft to palpation Extremity: COMMON NORMALS: normal to inspection and full ROM Neuro: COMMON NORMALS: patient oriented x3, moves all extremities and no focal motor deficits Psych: COMMON NORMALS: mental status grossly normal, Normal thought process present and cooperative THOUGHT PROCESS: Normal thought process present Skin: COMMON NORMALS: no rashes or lesions noted and no wounds GENERAL SKIN EXAM: no rashes or lesions noted Course Vital Signs: Vital signs: Vital Signs Temperature 98.3 F 06/23/25 11:39 Pulse Rate 92 06/23/25 11:45 Respiratory Rate 22 H 06/23/25 11:45 Blood Pressure 140/75 06/23/25 11:45 Pulse Oximetry 92 06/23/25 11:45 Oxygen Delivery Me thod Room Air 06/23/25 11:39 MDM - Chest Pain Medical Decision Making Patient presents here with chest pain is exertional in nature has multiple risk factors she is pain-free currently I spoke to the hospitalist will admit for ACS rule out Medical Records I reviewed the patient's medical records. Lab Data I reviewed the patient's lab results. 06/23/25 11:46 06/23/25 11:46 Radiology Impressions Chest X-Ray 06/23/25 11:38 IMPRESSION: Mild atelectasis/opacity at the left lung base. Laboratory Results WBC 7.34 10^3/uL (3.29-11.43) 06/23/25 11:46 RBC 5.77 10^6/uL (3.85-5.65) H 06/23/25 11:46 Hgb 13.60 g/dL (11.27-16.99) 06/23/25 11:46 Hct 44.1 % (36-47) 06/23/25 11:46 MCV 76.4 fl (85-98) L 06/23/25 11:46 MCH 23.6 pg (27-33) L 06/23/25 11:46 MCHC 30.8 g/dL (30-55) 06/23/25 11:46 RDW 18.8 % (12.1-15.1) H 06/23/25 11:46 Plt Count 286 10^3/cmm (157-399) 06/23/25 11:46 MPV 10.9 fL (7.4-10.4) H 06/23/25 11:46 Neut % (Auto) 65.2 % 06/23/25 11:46 Lymph % (Auto) 21.4 % 06/23/25 11:46 [place] % (Auto) 9.8 % 06/23/25 11:46 Eos % (Auto) 2.9 % 06/23/25 11:46 Baso % (Auto) 0.4 % 06/23/25 11:46 Neut # (Auto) 4.79 10^3/uL (1.8-7.7) 06/23/25 11:46 Lymph # (Auto) 1.6 10^3/uL (0.8-4.8) 06/23/25 11:46 [place] # (Auto) 0.7 10^3/uL (0.2-0.9) 06/23/25 11:46 Eos # (Auto) 0.2 10^3/uL (0.0-0.8) 06/23/25 11:46 Baso # (Auto) 0.0 10^3/uL (0.0-0.1) 06/23/25 11:46 Nucleated RBC % (auto) 0 % 06/23/25 11:46 Nucleated RBCs # 0.0 /100WBC 06/23/25 11:46 Sodium 137 mmol/L (136-145) 06/23/25 11:46 Potassium 4.3 mmol/L (3.5-5.1) 06/23/25 11:46 Chloride 100 mmol/L (98-107) 06/23/25 11:46 Carbon Dioxide 25 mmol/L (22-29) 06/23/25 11:46 Anion Gap 16.3 (5-19) 06/23/25 11:46 BUN 11 mg/dL (8-23) 06/23/25 11:46 Creatinine 1.3 mg/dL (0.5-0.9) H 06/23/25 11:46 GFR Calculation Not Reportable 06/23/25 11:46 Glucose 172 mg/dL (65-115) H 06/23/25 11:46 Calculated Osmolality 287 mOsm/kg (285-295) 06/23/25 11:46 Calcium 9.8 mg/dL (8.5-10.5) 06/23/25 11:46 Total Bilirubin 0.5 mg/dL (0.15-1.2) 06/23/25 11:46 AST 25 U/L (0-32) 06/23/25 11:46 ALT 13 U/L (0-33) 06/23/25 11:46 Alkaline Phosphatase 46 U/L (35-105) 06/23/25 11:46 Troponin T Baseline 27 ng/L (0-10) H 06/23/25 11:46 Total Protein 7.4 g/dL (6.6-8.7) 06/23/25 11:46 Albumin 4.2 g/dL (3.5-5.2) 06/23/25 11:46 Globulin 3.2 g/dL (1.3-4.6) 06/23/25 11:46 Lipase 72 U/L (13-60) H 06/23/25 11:46 All radiology interpretation(s) finalized by discharge EKG Data EKG 1: I personally reviewed and interpreted this EKG as follows: EKG interpretation date: 06/23/25 EKG interpretation time: 11:39 Interpretation: nsr hr [address] elevation qrs 89 qtc 402 Discharge Plan Discharge Patient Disposition: Admitted As Inpatient Clinical Impression: Chest pain Condition: Stable Coding Level of Care Code ED Senior Director Creative Services for Bev Rivera
[2025-06-23 11:53] LABS: Hematocrit 44.1 % (36-47); Hemoglobin 13.60 g/dL (11.27-16.99); Mean Corpuscular HGB Conc 30.8 g/dL (30-55); Mean Corpuscular Hemoglobin 23.6 pg (27-33); Mean Corpuscular Volume 76.4 fl (85-98); Nucleated Red Blood Cells % 0 %; Platelet Count 286 10^3/cmm (157-399); Red Blood Count 5.77 10^6/uL (3.85-5.65); White Blood Count 7.34 10^3/uL (3.29-11.43)
[2025-06-23 12:07] LABS: Troponin(5th) Baseline 27 ng/L (0-10)
[2025-06-23 12:09] LABS: Alanine Aminotransferase 13 U/L (0-33); Albumin Level 4.2 g/dL (3.5-5.2); Alkaline Phosphatase 46 U/L (35-105); Anion Gap 16.3 (5-19); Aspartate Amino Transferase 25 U/L (0-32); Blood Urea Nitrogen 11 mg/dL (8-23); Calcium 9.8 mg/dL (8.5-10.5); Carbon Dioxide 25 mmol/L (22-29); Chloride 100 mmol/L (98-107); Creatinine Clr Calc Pharmacy 27.1547; Globulin 3.2 g/dL (1.3-4.6); Glucose 172 mg/dL (65-115); Lipase 72 U/L (13-60); Osmolality Calculated 287 mOsm/kg (285-295); Potassium 4.3 mmol/L (3.5-5.1); Sodium 137 mmol/L (136-145); Total Protein 7.4 g/dL (6.6-8.7)
--- NOTE | 2025-06-23 12:16 | USCV_ITS ---
Yadira Cruz Age: 79 Gender: F : 1945 Exam Date: 06/23/2025 14:17 Ordering Phys: Astrid Joshi MD Technologist: Anirudh Servin [place]am Location[place] [facility] [place] Indication: chest pain BP: 148 / 69 HR: 76 Rhythm: Sinus Technical Quality: Adequate MEASUREMENTS (Male / Female) Normal Values 2D ECHO LVOT Diameter 2.0 cm LV Ejection Fraction MOD 4C 63.1 % LV Ejection Fraction MOD 2C 54.5 % LV Ejection Fraction 2C AL 55.2 % LA Diameter 3.6 cm RA Systolic Volume 4C AL 11.6 ml RA Systolic Volume 4C MOD 11.0 ml LA Sys Volume AL 17.2 cm cubed LA Sys Volume Index AL 11.7 cm cubed/m squared Aorta at Sinotubular Diameter 2.3 cm IVC Diameter 1.4 cm M-MODE LA Ao Ratio MM 1.0 AV Cusp Separation MM 1.3 cm DOPPLER AV Peak Velocity 129.0 cm/s LVOT Peak Velocity 85.0 cm/s AV Area Cont Eq vti 2.5 cm squared AV Area Cont Eq pk 2.1 cm squared MV Peak Velocity 122.0 cm/s MV Area PHT 5.3 cm squared Mitral E to A Ratio 0.6 TR Peak Velocity 231.0 cm/s TR Peak Gradient 21.3 mmHg TR Mean Velocity 191.0 cm/s TR Mean Gradient 15.3 mmHg TR Velocity Time Integral 60.3 cm PV Peak Velocity 105.0 cm/s RV Ejection Time 0.2 s FINDINGS Left Ventricle Normal left ventricular cavity size. Mild hpokinesis of the mid inferolateral wall with overall normal EF of 63%. Technically difficult images. Normal left ventricular wall thickness. Grade I/IV diastolic dysfunction (abnormal relaxation filling pattern), normal to mildly elevated filling pressures. Pattern normal for her age. Right Ventricle Normal right ventricular size and systolic function. Normal right ventricular systolic function. Right Atrium Normal right atrial size. Left Atrium Normal left atrial size. Mitral Valve Severe mitral annular calcification. Trace mitral valve regurgitation. No mitral valve stenosis. Aortic Valve No aortic valve stenosis. Trace aortic valve regurgitation. Tricuspid Valve Trace tricuspid valve regurgitation. Pulmonic Valve No pulmonary valve regurgitation. No pulmonary valve stenosis. Pericardium No pericardial effusion. Aorta Normal size aortic root. IVC Normal inferior vena cava. CONCLUSIONS 1. Hypokinesis of the mid inferolateral wall with overall normal global function with an EF of 63% 2. Normal RV size and systolic function. 3. No significant valvular dysfunction. Valerio So MD, FACC (Electronically Signed) Final Date: 23 June 2025 19:59 S
--- NOTE | 2025-06-23 12:16 | PM.HP ---
Providers/Chief Complaint Primary Care Provider: Roverto Arnold MD Chief Complaint: chest pain History of Present Illness Yadira Cruz is a 79 year old female with past medical history of recurrent UTI CKD, dyslipidemia, hypertension, CABG, coronary artery disease with in-stent restenosis in the past who presented to the hospital today with complaint of chest pain. He describes the chest pain is exertional. Patient states every time she gets up to try to do something she has chest pain that is described as a tightness pressure-like feeling in the middle of her chest radiating to the jaw. At times it also radiates to the right arm. Patient's daughter supplements with history who is the primary caregiver at home. She states her last angiogram was 4 to 5 years ago. She is to follow with Dr. Hernandez in [facility]. Lately has she has been using lots of nitro tablets which do improve the chest pain. At this moment she is chest pain-free as she recently had a nitro in the ER. Denies nausea vomiting diarrhea at this time. Pain is generally not reproducible to palpation however she does have mild pain in the middle of her chest upon palpation. She states it starts off as a tight feeling however then converts into a tightness and pressure. Medications/Allergies Home Medications ?Medication ?Instructions ?Recorded ?Confirmed ?Last Taken ?Type clopidogrel 75 mg tablet 75 mg PO DAILY 09/06/20 06/23/25 06/23/25 History diltiazem HCl 120 mg 120 mg PO DAILY 09/06/20 06/23/25 06/23/25 History capsule,extended release 24 hr fenofibrate nanocrystallized 145 145 mg PO DAILY 09/06/20 06/23/25 06/22/25 20:00 History mg tablet isosorbide mononitrate 30 mg See Rx Instructions .Route .COMPLEX 09/06/20 06/23/25 06/23/25 08:00 History tablet,extended release 24 hr levothyroxine 50 mcg tablet 50 mcg PO DAILY 09/06/20 06/23/25 06/23/25 07:00 History pantoprazole 40 mg tablet,delayed 40 mg PO DAILY 09/06/20 06/23/25 06/23/25 08:00 History release ranolazine 500 mg tablet,extended 500 mg PO BID 09/06/20 06/23/25 06/23/25 08:00 History release,12 hr dapagliflozin propanediol 10 mg 10 mg PO DAILY 11/18/23 06/23/25 06/23/25 History tablet (Farxiga) temazepam 30 mg capsule 30 mg PO BEDTIME 11/18/23 06/23/25 02/03/24 History metoprolol tartrate 25 mg tablet 25 mg PO BID 02/04/24 06/23/25 06/23/25 08:00 History fluconazole 150 mg tablet 150 mg PO Q72H 06/23/25 06/23/25 06/20/25 History lorazepam 1 mg tablet 1 mg PO BID 06/23/25 06/23/25 06/23/25 History pravastatin 20 mg tablet 20 mg PO DAILY 06/23/25 06/23/25 06/23/25 History Allergies Allergy/AdvReac Type Severity Reaction Status Date / Time codeine Allergy ADR-Vomitin Verified 02/04/24 15:41 g epinephrine (From Primatene Allergy ALGY-Difficulty Verified 02/04/24 15:41 Mist) Breathing morphine Allergy ALGY-Redness Verified 02/04/24 15:41 of Skin PFSH Acute PFSH: Medical History (Updated 06/23/25 @ 16:52 by Astrid Joshi MD) Recurrent UTI Chronic kidney disease (CKD) -on gentle IVF due to anticipated coronary angiogram -baseline Cr appears to be around 1.2-1.3 Dyslipidemia associated with type 2 diabetes mellitus -continue statin Benign essential hypertension with target blood pressure below 140/90 -amlodipine added for more optimal BP control Atherosclerotic heart disease of [place] coronary artery with unstable angina pectoris -s/p bypass x 4, stenting x 3 Peripheral neuropathy [place] spotted fever Hypothyroidism Sleep apnea GERD (gastroesophageal reflux disease) Coronary artery disease Diabetes Kidney disease, chronic, stage II (GFR 60-89 ml/min) Cholecystitis Surgical History History of right-sided carotid endarterectomy Hx of cholecystectomy S/P CABG (coronary artery bypass graft) Patient reports 3 times Family History Father , AT AGE 74 Natural with unknown cause Mother , AT AGE 81 Heart attack Other Family history non-contributory Social History Smoking and tobacco/nicotine status: former use of tobacco/nicotine Alcohol intake: never Substance/Drug Use: never Marital status: Current occupational status: retired Vitals/I&O/Wt Last Vital Signs Temp 98.3 F 06/23/25 11:39 Pulse 92 06/23/25 11:45 Resp 22 H 06/23/25 11:45 BP 140/75 06/23/25 11:45 Pulse Ox 92 06/23/25 11:45 O2 Del Method Room Air 06/23/25 11:39 Weight last 48 hrs Weight 49.442 kg Physical Exam Narrative: General: Alert oriented x3, patient seen sitting up in bed appearing comfortable HEENT: Normocephalic, atraumatic, EOMI, breathing room air. Cardio: Rate rhythm, normal S1-S2, some chest pain reproducible to palpation however it is not the same pain the patient has been having. Respiratory: Clear to auscultation bilaterally no wheezes no rhonchi GI: Abdomen soft, nontender, bowel sounds + Extremities: No edema bilateral lower extremities Data 06/23/25 11:46 06/23/25 11:46 A&P Assessment and plan 1. Unstable angina: 2. Chest pain: 3. Lumbar stenosis with neurogenic claudication: 4. GERD (gastroesophageal reflux disease): 5. Chronic kidney disease (CKD): Plan: #Unstable angina #History of CABG, PCI, in-stent restenosis in the past?follows with Dr. Hernandez in [facility]. #History of degenerative disc disease #Hypertension #Possible pneumonia??Opacity left lung base. #CKD ? Creatinine at baseline 1.3. Placed on gentle IV fluid hydration 75 cc/h overnight the patient angiogram in a.m. ? Continue aspirin Plavix atorvastatin beta-ronen, levothyroxine ? Will place on Nitropaste 0.5 mg twice daily ? Hold home isosorbide mononitrate ? Continue ceftriaxone azithromycin. There is opacity at left lung base. I will empirically cover for pneumonia. ? Will place on heparin drip for unstable angina protocol ? Consult cardiology. Await recommendations. ? Will keep n.p.o. midnight in anticipation of possible angiogram in AM. Final recommendation to be made by cardiology. ? Patient agreeable to proceed with procedure if required and if recommended by cardiology. Full code DVT prophylaxis: On heparin drip at this time. PDMP PDMP Reviewed: Not Reviewed Attestations Medical Necessity Statement*: Unstable angina history of CABG in the past. Will likely require further cardiac workup with possibility of angiogram. Diagnoses Unstable angina I20.0 Chest pain R07.9 Lumbar stenosis with neurogenic claudication M48.062 GERD (gastroesophageal reflux disease) K21.9 Chronic kidney disease (CKD) N18.9
[2025-06-23] MEDS: cefTRIAXone 1,000 mg SDV 1000 MG IVP (12:36)
[2025-06-23 12:44] LABS: Cholesterol 203 mg/dL (0-200); HDL Cholesterol 50 mg/dL (60-100); Triglycerides 287 mg/dL (0-150); VLDL Cholestrol Calculation 57 mg/dL (0-30)
--- NOTE | 2025-06-23 13:15 | PC.PHAR ---
Patient's daughter takes care of her medication . Daughter states on wednesday Patient had a flu shot . Patient's daughter did state Patient takes her Fluconazole pill 3 times a week and she took it Wednesday and is due on Wednesday for her next dose.
--- NOTE | 2025-06-23 13:36 | ECG_ITS ---
[facility] Date: 2025-06-23 Pat Name: Yadira Cruz Department: Room: 112 Gender: Female Secondary Social Studies Teacher: : 1945 Requested By: Tan Flores Order Number: [id number] Jeanine MD: Valerio So M.D. Measurements Intervals [place] Rate: 70 P: 26 [place]: 146 QRS: 81 QRSD: 93 T: 118 QT: 381 QTc: 413 Interpretive Statements SINUS RHYTHM LOW QRS VOLTAGE IN PRECORDIAL LEADS [QRS DEFLECTION < 1.0 mV IN CHEST LEADS] NONSPECIFIC ST-T-WAVE ABNORMALITY Compared to ECG 06/23/2025 11:39:37 NO SIGNIFICANT CHANGE Electronically Signed On 06-25-2025 13:57:26 CDT by Valerio So M.D. [email or web address]
[2025-06-23 14:13] LABS: Troponin 5 2HR 22.16 ng/L (0-10)
[2025-06-23 14:19] LABS: Troponin 5 2HR Delta -4.84 ABS# (0-10)
[2025-06-23] MEDS: heparin 5,000 unit/mL INJ 1 mL IVP ×2 (16:25→19:36)
[2025-06-23] MEDS: heparin drip 25,000 UNIT/500 ML PREMIX 14 UNIT IV (16:26)
[2025-06-23] MEDS: ranolazine (12HR) 500 mg Tablet PO (17:37)
[2025-06-23] MEDS: nitroglycerin 1 gm/inch oint Pkt 0.5 INCH TOPICAL (17:38)
--- NOTE | 2025-06-23 17:38 | ECG_ITS ---
[facility] Test Date: 2025-06-23 Pat Name: Yadira Cruz Department: Room: 112 Gender: Female Business Continuity Coordinator: : 1945 Requested By: Tan Flores Order Number: [id number] Reading MD: Valerio So M.D. Measurements Intervals [place] Rate: 74 P: -5 VT: 151 QRS: 23 QRSD: 76 T: 75 QT: 420 QTc: 466 Interpretive Statements SINUS RHYTHM NONSPECIFIC T ABNORMALITIES, DIFFUSE LEADS Compared to ECG 06/23/2025 13:36:34 NO SIGNIFICANT CHANGE Electronically Signed On 06-25-2025 13:53:49 CDT by Valerio So M.D. [email or web address] [id number]
--- NOTE | 2025-06-23 17:54 | PM.CONSULT ---
Providers/Reason For Consult Consulting Physician/Specialty*: Valerio So MD Reason for Consult*: Chest pain Requesting Physician: Astrid Joshi MD Attending Physician: Astrid Joshi MD Primary Care Provider: Roverto Arnold MD History of Present Illness History of Present Illness Yadira Cruz is a 79 year old female with a history of essential HTN, HLD, T2DM, CAD s/p CABG 14 years ago in [place] and last stenting procedure 4 years ago at [facility] in [facility] with Dr. Hernandez's group, s/p Right CEA, CKD (BL cr 1.2-1.3) who presents with exertional anterior chest pain relieved with nitroglycerin. I spoke with her daughter since she says she has a hard time remembering things. Daughter states mother has small caliber vessels which has made it difficult to revascularize her. Review of Systems Card: Denies: palpitations, swelling of feet/ankles or syncope Resp: Denies: dyspnea, productive cough or wheezing Medications/Allergies Home Medications ?Medication ?Instructions ?Recorded ?Confirmed ?Last Taken ?Type clopidogrel 75 mg tablet 75 mg PO DAILY 09/06/20 06/23/25 06/23/25 History diltiazem HCl 120 mg 120 mg PO DAILY 09/06/20 06/23/25 06/23/25 History capsule,extended release 24 hr fenofibrate nanocrystallized 145 145 mg PO DAILY 09/06/20 06/23/25 06/22/25 20:00 History mg tablet isosorbide mononitrate 30 mg See Rx Instructions .Route .COMPLEX 09/06/20 06/23/25 06/23/25 08:00 History tablet,extended release 24 hr levothyroxine 50 mcg tablet 50 mcg PO DAILY 09/06/20 06/23/25 06/23/25 07:00 History pantoprazole 40 mg tablet,delayed 40 mg PO DAILY 09/06/20 06/23/25 06/23/25 08:00 History release ranolazine 500 mg tablet,extended 500 mg PO BID 09/06/20 06/23/25 06/23/25 08:00 History release,12 hr dapagliflozin propanediol 10 mg 10 mg PO DAILY 11/18/23 06/23/25 06/23/25 History tablet (Farxiga) temazepam 30 mg capsule 30 mg PO BEDTIME 11/18/23 06/23/25 02/03/24 History metoprolol tartrate 25 mg tablet 25 mg PO BID 02/04/24 06/23/25 06/23/25 08:00 History fluconazole 150 mg tablet 150 mg PO Q72H 06/23/25 06/23/25 06/20/25 History lorazepam 1 mg tablet 1 mg PO BID 06/23/25 06/23/25 06/23/25 History pravastatin 20 mg tablet 20 mg PO DAILY 06/23/25 06/23/25 06/23/25 History Allergies Allergy/AdvReac Type Severity Reaction Status Date / Time codeine Allergy ADR-Vomitin Verified 02/04/24 15:41 g epinephrine (From Primatene Allergy ALGY-Difficulty Verified 02/04/24 15:41 Mist) Breathing morphine Allergy ALGY-Redness Verified 02/04/24 15:41 of Skin Current Medications Generic Name Dose Route Start Last Admin Trade Name Freq PRN Reason Stop Dose Admin Azithromycin 500 mg 06/23/25 12:20 06/23/25 12:36 Azithromycin 250 Mg Tablet PO 500 mg DAILY JOSEF Administration Protocol Ceftriaxone Sodium 1,000 mg 06/23/25 12:30 06/23/25 12:36 Ceftriaxone 1,000 Mg Sdv IVP 1,000 mg Q24H JOSEF Administration Protocol Heparin Sodium/Sodium Chloride 25,000 unit in 500 mls @ 0 mls/hr 06/23/25 15:45 06/23/25 16:26 Heparin Drip IV 14.16 unit/kg/hr CONT JOSEF 14 mls/hr Protocol Administration Per Protocol Nitroglycerin 0.5 inch 06/23/25 17:15 06/23/25 17:38 Nitroglycerin 1 Gm/Inch Oint Pkt TOPICAL 0.5 inch Q12H JOSEF Administration Ranolazine 500 mg 06/23/25 18:00 06/23/25 17:37 Ranolazine (12hr) 500 Mg Tablet PO 500 mg BID JOSEF Administration PFSH Acute PFSH: Medical History (Updated 06/23/25 @ 18:13 by Valerio oS MD) Recurrent UTI Chronic kidney disease (CKD) -on gentle IVF due to anticipated coronary angiogram -baseline Cr appears to be around 1.2-1.3 Dyslipidemia associated with type 2 diabetes mellitus -continue statin Benign essential hypertension with target blood pressure below 140/90 -amlodipine added for more optimal BP control Atherosclerotic heart disease of [place] coronary artery with unstable angina pectoris -s/p bypass x 4, stenting x 3 Peripheral neuropathy [place] spotted fever Hypothyroidism Sleep apnea GERD (gastroesophageal reflux disease) Coronary artery disease Diabetes Kidney disease, chronic, stage II (GFR 60-89 ml/min) Cholecystitis Surgical History History of right-sided carotid endarterectomy Hx of cholecystectomy S/P CABG (coronary artery bypass graft) Patient reports 3 times Family History Father , AT AGE 74 Natural with unknown cause Mother , AT AGE 81 Heart attack Other Family history non-contributory Social History Smoking and tobacco/nicotine status: former use of tobacco/nicotine Alcohol intake: never Substance/Drug Use: never Marital status: Current occupational status: retired Vitals/I&O/Wt Last Vital Signs Temp 98.3 F 06/23/25 11:39 Pulse 81 06/23/25 17:38 Resp 20 H 06/23/25 13:16 BP 140/68 06/23/25 17:38 Pulse Ox 92 06/23/25 13:16 O2 Del Method Room Air 06/23/25 14:01 06/23/25 06/23/25 06/23/25 06:59 14:59 22:59 Intake Total 200 / 200 Balance 200 / 200 Weight last 48 hrs Weight 109 lb Weight 109 lb Physical Exam Narrative: General: In no acute distress Neck: No jugular venous distention or carotid bruits Heart: Normal S1 and S2 with a regular rate and rhythm Lungs: Normal respiratory effort with no use of intercostal muscles, clear lungs sounds to auscultation Extremities: No lower extremity edema Neuro: Alert and oriented x 3 Data 06/23/25 11:46 06/23/25 11:46 Other data: 3 serial EKGs obtained today and personally interpreted by me and show: NSR with nonspecific T wave flattening. No acute ST change to suggest ischemia A&P Assessment and plan 1. Atherosclerotic heart disease of [place] coronary artery with unstable angina pectoris: currently CP free at rest but symptoms prior to arrival consistent with unstable angina Last stenting procedure at [facility] in [place] 4 years ago Records requested small vessels per daughter 2. NSTEMI (non-ST elevated myocardial infarction): Mildly elevated troponins 3. Dyslipidemia associated with type 2 diabetes mellitus: 4. Kidney disease, chronic, stage II (GFR 60-89 ml/min): Cr at baseline 5. HTN (hypertension): Mildly elevated BP on admission Plan: IV heparin, plavix, metoprolol, ranolazine, Nitropaste as ordered Will resume Imdur at discharge LDL not at goal, increase pravastatin to 80mg qhs if patient agreeable Echo IVF overnight to prep for LHC tomorrow Keep NPO after midnight PDMP PDMP Reviewed: Not Reviewed Coding Level of Care Code 62021 Diagnoses Atherosclerotic heart disease of [place] coronary artery with unstable angina pectoris I25.110 NSTEMI (non-ST elevated myocardial infarction) I21.4 Dyslipidemia associated with type 2 diabetes mellitus E11.69; E78.5 Kidney disease, chronic, stage II (GFR 60-89 ml/min) N18.2 HTN (hypertension) I10
[2025-06-23 19:22] LABS: Partial Thromboplastin Time 52.6 SECONDS (23.9-36.7)
[2025-06-23 19:38] LABS: Troponin 5 6HR 20.65 ng/L (0-10)
[2025-06-23 19:48] LABS: Troponin 5 6HR Delta -6.35 ng/L (0-12)
[2025-06-24] VITALS (49 sets, daily range): BP systolic 122–169; BP diastolic 53–78; PULSE 74–106; RESP 10–35; TEMP 36.3–36.8; O2SAT 92–98
[2025-06-24 01:29] LABS: Hematocrit 38.2 % (36-47); Hemoglobin 12.00 g/dL (11.27-16.99); Mean Corpuscular HGB Conc 31.4 g/dL (30-55); Mean Corpuscular Hemoglobin 23.8 pg (27-33); Mean Corpuscular Volume 75.6 fl (85-98); Nucleated Red Blood Cells % 0 %; Platelet Count 215 10^3/cmm (157-399); Red Blood Count 5.05 10^6/uL (3.85-5.65); White Blood Count 4.72 10^3/uL (3.29-11.43)
[2025-06-24 01:58] LABS: Alanine Aminotransferase 10 U/L (0-33); Albumin Level 3.5 g/dL (3.5-5.2); Alkaline Phosphatase 37 U/L (35-105); Anion Gap 14.9 (5-19); Aspartate Amino Transferase 20 U/L (0-32); Blood Urea Nitrogen 11 mg/dL (8-23); Calcium 9.1 mg/dL (8.5-10.5); Carbon Dioxide 25 mmol/L (22-29); Chloride 103 mmol/L (98-107); Globulin 2.9 g/dL (1.3-4.6); Glucose 91 mg/dL (65-115); Magnesium 2.0 mg/dL (1.7-2.3); Osmolality Calculated 287 mOsm/kg (285-295); Potassium 3.9 mmol/L (3.5-5.1); Sodium 139 mmol/L (136-145); Total Protein 6.4 g/dL (6.6-8.7)
[2025-06-24 01:59] LABS: Creatinine Clr Calc Pharmacy 32.0919
[2025-06-24 02:03] LABS: Partial Thromboplastin Time 207.5 SECONDS (23.9-36.7)
[2025-06-24] MEDS: nitroglycerin 1 gm/inch oint Pkt 0.5 INCH TOPICAL ×3 (04:27→17:20)
[2025-06-24 05:10] LABS: Partial Thromboplastin Time 53.7 SECONDS (23.9-36.7)
[2025-06-24] MEDS: ranolazine (12HR) 500 mg Tablet PO ×2 (07:40→17:20)
--- NOTE | 2025-06-24 10:38 | PC.NURSE ---
Chest Pain episode Pt started complaining of chest tightness off an on, rate it around 3 per scale around 7 am bedside shift then pt called after around 15 mins that it is worse around 8 scale. AM meds given this morning along with xanax PRN. BP and HR checked. After all meds were given, reassess pt and no pain at this time.
--- NOTE | 2025-06-24 11:23 | P.PN_ITS ---
Vitals/I&O/Wt Last Vital Signs Temp 98.0 F 06/24/25 07:45 Pulse 90 06/24/25 07:45 Resp 20 H 06/24/25 07:45 BP 149/78 06/24/25 07:45 Pulse Ox 97 06/24/25 07:45 O2 Del Method Room Air 06/24/25 03:54 06/23/25 06/24/25 06/24/25 22:59 06:59 14:59 Intake Total 244.333 / 244.333 96.5 / 340.833 Balance 244.333 / 244.333 96.5 / 340.833 Weight last 48 hrs Weight 49.85 kg Weight 49.442 kg Weight 49.442 kg Physical Exam 2 Narrative: General: Alert oriented x3, patient seen sitting up in bed appearing comfortable HEENT: Normocephalic, atraumatic, EOMI, breathing room air. Cardio: Rate rhythm, normal S1-S2, Respiratory: Clear to auscultation bilaterally no wheezes no rhonchi GI: Abdomen soft, nontender, bowel sounds + Extremities: No edema bilateral lower extremities Data 06/24/25 01:19 06/24/25 01:19 A&P Assessment and plan 1. Unstable angina: 2. Chest pain: 3. Lumbar stenosis with neurogenic claudication: 4. GERD (gastroesophageal reflux disease): 5. Chronic kidney disease (CKD): Plan: #Unstable angina #History of CABG, PCI, in-stent restenosis in the past?follows with Dr. Hernandez in [facility]. #History of degenerative disc disease #Hypertension #Possible pneumonia??Opacity left lung base. #CKD ? Creatinine at baseline 1.3. Placed on gentle IV fluid hydration 75 cc/h overnight the patient angiogram in a.m. ? Continue aspirin Plavix atorvastatin beta-ronen, levothyroxine ? Will place on Nitropaste 0.5 mg twice daily ? Hold home isosorbide mononitrate ? Continue ceftriaxone azithromycin. There is opacity at left lung base. I will empirically cover for pneumonia. ? Will place on heparin drip for unstable angina protocol ? Consult cardiology. Await recommendations. ? Will keep n.p.o. midnight in anticipation of possible angiogram in AM. Final recommendation to be made by cardiology. ? Patient agreeable to proceed with procedure if required and if recommended by cardiology. Full code DVT prophylaxis: On heparin drip at this time. 06/24/2025 continue nitrobid 0.5 BID Continue ceftriaxone azithromycin. I have low suspicion for pneumonia however due to the question opacity in left lung base I would empirically cover for 5 days total. Patient is n.p.o. since midnight in anticipation of angiogram today. Cardiology consulted. Continue aspirin Plavix atorvastatin beta-ronen levothyroxine. Continue on ranolazine 500 twice daily PDMP PDMP Reviewed: Not Reviewed Attestations 2 Medical Necessity Statement*: Unstable angina history of CABG in the past. Plan for catheter today Diagnoses Unstable angina I20.0 Chest pain R07.9 Lumbar stenosis with neurogenic claudication M48.062 GERD (gastroesophageal reflux disease) K21.9 Chronic kidney disease (CKD) N18.9
[2025-06-24 12:28] LABS: Partial Thromboplastin Time 78.2 SECONDS (23.9-36.7)
--- NOTE | 2025-06-24 13:53 | PC.NURSE ---
to technical laboratory asst off unit via bed, taken by technical laboratory asst staff.
--- NOTE | 2025-06-24 14:15 | W.PM.OPSUD ---
Surgery/Procedure H&P Update DATE OF PROCEDURE: June 24, 2025 DATE H&P PERFORMED: 06/23/25 H&P UPDATE INFORMATION: I have reviewed H&P completed within last 30 days, I have examined patient prior to procedure and No changes to prior documentation PREOP DIAGNOSIS: Unstable angina/history of coronary artery disease CABG/ACS PATIENT REASSESSED PRIOR TO SEDATION, WITH NO CHANGE NOTED: Yes PHYSICAL EXAM: alert, oriented x 3, clear to auscultation bilaterally and regular rate & rhythm AIRWAY EVAL/ANESTHESIA PLAN: ASA II, Risks, benefits & alternatives of sedation and/or procedure discussed and Patient agrees to continue as planned ADDITIONAL INFORMATION: All risk-benefit and alternative for the procedure has been explained to the patient. Patient understand 2% risk of stroke major bleed. Patient understand 5% risk of minor bleeding bruising infection hematoma contrast induced nephropathy urgent emergent vascular or bypass surgery. Patient agrees to it and would like to proceed with it.
--- NOTE | 2025-06-24 16:09 | P.PCN_ITS ---
Procedure Note: Date of procedure: 06/24/25 Pre-procedure diagnosis: Unstable angina Post-procedure diagnosis: same Procedure: Left heart cath was performed Left main: No significant stenosis LAD 100% occluded in the midsegment Diagonal branch, patent no significant stenosis Left circumflex nondominant moderate-sized in caliber vessel without significant stenosis, obtuse 1 and obtuse to marginals not visualized most likely chronically occluded RCA has eccentric takeoff with prior proximal to distal stenting it has high- grade mid and distal tandem stenosis which is more than 90% and most likely the culprit ORTIZ to LAD is known to be atretic SVG to RCA is known to be occluded SVG to obtuse marginal 1 is known to be occluded SVG to Y graft to obtuse marginal 2 and diagonal 2 perhaps is closed as we can see previously placed stent but no dye present to it. PCI to mid to distal RCA with 3 overlapping drug-eluting stents. Excellent angiographic result with KUSHAL-3 flow was noted. Plan Continue dual antiplatelet therapy in the form of Plavix 75 mg and aspirin 81 mg Bedrest for 5 hours after pulling out sheath once PTT is less than 45 Continue home medications and optimal medical management Full note to be dictated Coding Level of Care Code Acute Code for Chg Fwd
[2025-06-24] MEDS: cefTRIAXone 1,000 mg SDV 1000 MG IVP (17:20)
[2025-06-24 18:31] LABS: Partial Thromboplastin Time 150.2 SECONDS (23.9-36.7)
[2025-06-24] MEDS: ondansetron 2 mg/ML SDV 2 mL 4 MG IVP (18:39)
[2025-06-24 20:32] LABS: Partial Thromboplastin Time 53.9 SECONDS (23.9-36.7)
[2025-06-24 22:11] LABS: Partial Thromboplastin Time 32.0 SECONDS (23.9-36.7)
[2025-06-25] VITALS (15 sets, daily range): BP systolic 140–177; BP diastolic 63–76; PULSE 83–97; RESP 18–38; TEMP 36.2–36.9; O2SAT 94–98
[2025-06-25] MEDS: nitroglycerin 1 gm/inch oint Pkt 0.5 INCH TOPICAL ×2 (00:20→05:22)
[2025-06-25 04:59] LABS: Hematocrit 38.4 % (36-47); Hemoglobin 11.80 g/dL (11.27-16.99); Mean Corpuscular HGB Conc 30.7 g/dL (30-55); Mean Corpuscular Hemoglobin 23.7 pg (27-33); Mean Corpuscular Volume 77.1 fl (85-98); Nucleated Red Blood Cells % 0 %; Platelet Count 210 10^3/cmm (157-399); Red Blood Count 4.98 10^6/uL (3.85-5.65); White Blood Count 5.40 10^3/uL (3.29-11.43)
[2025-06-25 05:31] LABS: Anion Gap 17.9 (5-19); Blood Urea Nitrogen 10 mg/dL (8-23); Calcium 8.7 mg/dL (8.5-10.5); Carbon Dioxide 23 mmol/L (22-29); Chloride 103 mmol/L (98-107); Glucose 92 mg/dL (65-115); Magnesium 1.9 mg/dL (1.7-2.3); Osmolality Calculated 289 mOsm/kg (285-295); Potassium 3.9 mmol/L (3.5-5.1); Sodium 140 mmol/L (136-145)
[2025-06-25 05:33] LABS: Creatinine Clr Calc Pharmacy 32.1970
[2025-06-25] MEDS: ranolazine (12HR) 500 mg Tablet PO (08:16)
--- NOTE | 2025-06-25 11:41 | PC.SOCIAL ---
*IMM* Completed, initialed, dated and timed in the chart. Copy received by patient.
--- NOTE | 2025-06-25 11:52 | PM.PN ---
Subjective Subjective: Feeling well Walked in peres without difficulty Vitals/I&O/Wt Last Vital Signs Temp 97.6 F 06/25/25 07:39 Pulse 90 06/25/25 07:39 Resp 18 06/25/25 07:39 BP 176/69 06/25/25 07:39 Pulse Ox 94 06/25/25 07:39 O2 Del Method Room Air 06/25/25 07:39 06/24/25 06/25/25 06/25/25 22:59 06:59 14:59 Intake Total 240 / 668.533 3523 / 1325.167 120 / 120 Balance 240 / 542.656 0640 / 1325.167 120 / 120 Weight last 48 hrs Weight 109 lb 14.4 oz Weight 109 lb Physical Exam Narrative: General: In no acute distress Neck: No jugular venous distention or carotid bruits Heart: Normal S1 and S2 with a regular rate and rhythm, no cardiac murmurs Lungs: Normal respiratory effort with no use of intercostal muscles, clear lungs sounds to auscultation Extremities: No lower extremity edema Neuro: Alert and oriented x 3 Right fem cath site soft, no hematoma or bruit Data 06/25/25 04:39 06/25/25 04:39 A&P Assessment and plan 1. Atherosclerotic heart disease of [place] coronary artery with unstable angina pectoris: 2. NSTEMI (non-ST elevated myocardial infarction): Mildly elevated troponins s/p multiple [place] to [place] RCA 06/24/2025 Feeling better 3. Dyslipidemia associated with type 2 diabetes mellitus: was on low dose pravastatin as outpatient 4. Kidney disease, chronic, stage II (GFR 60-89 ml/min): Cr at baseline 5. HTN (hypertension): uncontrolled with high normal heart rate Plan: continue with stronger statin - atorvastatin 40mg qhs ASA/plavix/ranolazine/metoprolol indefinitely resume Imdur and diltiazem home bp and hr monitoring and bring to fu office vist in 2 weeks PDMP PDMP Reviewed: Not Reviewed Attestations Medical Necessity Statement*: Discharge today Coding Level of Care Code 15506 Diagnoses Atherosclerotic heart disease of [place] coronary artery with unstable angina pectoris I25.110 NSTEMI (non-ST elevated myocardial infarction) I21.4 Dyslipidemia associated with type 2 diabetes mellitus E11.69; E78.5 Kidney disease, chronic, stage II (GFR 60-89 ml/min) N18.2 HTN (hypertension) I10
--- NOTE | 2025-06-25 12:25 | PM.DCS ---
Discharge Providers Date of Admission: 06/24/25 14:29 Date of Discharge: June 25, 2025 Attending Provider at Admission: Astrid Joshi MD Attending Provider at Discharge: Doug Lopez MD Primary Care Provider: Roverto Arnold MD Diagnoses at Discharge Discharge Diagnosis 1. Atherosclerosis of [place] coronary artery of [place] heart with unstable angina pectoris: 2. NSTEMI (non-ST elevated myocardial infarction): 3. Dyslipidemia associated with type 2 diabetes mellitus: 4. Kidney disease, chronic, stage II (GFR 60-89 ml/min): 5. HTN (hypertension): Reason for Visit Reason for Visit: chest pain Hospital Course Hospital Course This is a 79-year-old female with history of UTI, stent restenosis in the past, who presents [facility] for chest pain Patient was admitted to our hospital concern for chest pain, cardiology consulted, placed on heparin drip, underwent cardiac catheterization, Cardiac catheterization status post PCI to mid to distal RCA with 3 overlapping drug-eluting stents, tolerated procedure well, no recurrent chest pain, discharged on aspirin, Plavix, atorvastatin, metoprolol, with close follow-up with cardiology as outpatient. Patient was advised if she would have any recurrent chest pain to immediately call 911. Patient's chest x-ray showed opacity in the left lung base, will discharge on p.o. cefdinir, however she will have to follow-up with pulmonary as outpatient for consideration of repeat imaging or CT of the chest Physical Exam Const: COMMON NORMALS: no acute distress and patient oriented x3 Resp: COMMON NORMALS: normal respiratory effort, No retractions, No use of accessory muscles and clear to auscultation bilaterally AUSCULTATION: clear to auscultation bilaterally Cardio: COMMON NORMALS: regular rate, regular rhythm, S1 normal heart sound present and S2 normal heart sound present RATE: regular rate RHYTHM: regular rhythm HEART SOUNDS: S1 normal heart sound present and S2 normal heart sound present GI: COMMON NORMALS: Normal to inspection, nondistended, normoactive bowel sounds present and non-tender Extremity: COMMON NORMALS: no calf tenderness and no pedal edema Neuro: COMMON NORMALS: patient oriented x3 Psych: COMMON NORMALS: mental status grossly normal Discharge Data Studies Completed and Pending Completed Studies During Hospitalization Category Date Time Status XR chest 1V portable [id number] Stat Exams 06/23/25 11:38 Completed CV. echo complete* [id number] Stat Ultrasound 06/23/25 12:16 Completed Pending at discharge Category Date Time Status PANEL ASSEMBLER request for service Routine Exams 06/24/25 13:00 Ordered Radiology Impressions Chest X-Ray 06/23/25 11:38 IMPRESSION: Mild atelectasis/opacity at the left lung base. Laboratory Results WBC 5.40 10^3/uL (3.29-11.43) 06/25/25 04:39 RBC 4.98 10^6/uL (3.85-5.65) 06/25/25 04:39 Hgb 11.80 g/dL (11.27-16.99) 06/25/25 04:39 Hct 38.4 % (36-47) 06/25/25 04:39 MCV 77.1 fl (85-98) L 06/25/25 04:39 MCH 23.7 pg (27-33) L 06/25/25 04:39 MCHC 30.7 g/dL (30-55) 06/25/25 04:39 RDW 18.5 % (12.1-15.1) H 06/25/25 04:39 Plt Count 210 10^3/cmm (157-399) 06/25/25 04:39 MPV 11.0 fL (7.4-10.4) H 06/25/25 04:39 Neut % (Auto) 71.7 % 06/25/25 04:39 Lymph % (Auto) 18.1 % 06/25/25 04:39 [place] % (Auto) 9.4 % 06/25/25 04:39 Eos % (Auto) 0.4 % 06/25/25 04:39 Baso % (Auto) 0.4 % 06/25/25 04:39 Neut # (Auto) 3.87 10^3/uL (1.8-7.7) 06/25/25 04:39 Lymph # (Auto) 1.0 10^3/uL (0.8-4.8) 06/25/25 04:39 [place] # (Auto) 0.5 10^3/uL (0.2-0.9) 06/25/25 04:39 Eos # (Auto) 0.0 10^3/uL (0.0-0.8) 06/25/25 04:39 Baso # (Auto) 0.0 10^3/uL (0.0-0.1) 06/25/25 04:39 Nucleated RBC % (auto) 0 % 06/25/25 04:39 Nucleated RBCs # 0.0 /100WBC 06/25/25 04:39 APTT 32.0 SECONDS (23.9-36.7) 06/24/25 21:49 Sodium 140 mmol/L (136-145) 06/25/25 04:39 Potassium 3.9 mmol/L (3.5-5.1) 06/25/25 04:39 Chloride 103 mmol/L (98-107) 06/25/25 04:39 Carbon Dioxide 23 mmol/L (22-29) 06/25/25 04:39 Anion Gap 17.9 (5-19) 06/25/25 04:39 BUN 10 mg/dL (8-23) 06/25/25 04:39 Creatinine 1.1 mg/dL (0.5-0.9) H 06/25/25 04:39 GFR Calculation Not Reportable 06/25/25 04:39 Glucose 92 mg/dL (65-115) 06/25/25 04:39 POC Glucose 108 mg/dL (70-110) 06/25/25 11:06 Calculated Osmolality 289 mOsm/kg (285-295) 06/25/25 04:39 Calcium 8.7 mg/dL (8.5-10.5) 06/25/25 04:39 Magnesium 1.9 mg/dL (1.7-2.3) 06/25/25 04:39 Total Bilirubin 0.4 mg/dL (0.15-1.2) 06/24/25 01:19 AST 20 U/L (0-32) 06/24/25 01:19 ALT 10 U/L (0-33) 06/24/25 01:19 Alkaline Phosphatase 37 U/L (35-105) 06/24/25 01:19 Troponin T Baseline 27 ng/L (0-10) H 06/23/25 11:46 Troponin T 120 Minute 22.16 ng/L (0-10) H 06/23/25 13:48 Delta Troponin T -4.84 ABS# (0-10) L 06/23/25 13:48 Troponin T Hi Sens 6Hr 20.65 ng/L (0-10) H 06/23/25 18:48 Troponin T Hi Sens 6Hr Delta -6.35 ng/L (0-12) L 06/23/25 18:48 Total Protein 6.4 g/dL (6.6-8.7) L 06/24/25 01:19 Albumin 3.5 g/dL (3.5-5.2) 06/24/25 01:19 Globulin 2.9 g/dL (1.3-4.6) 06/24/25 01:19 Triglycerides 287 mg/dL (0-150) H 06/23/25 11:46 Cholesterol 203 mg/dL (0-200) H 06/23/25 11:46 LDL Cholesterol, Calc 96 mg/dL (50-129) 06/23/25 11:46 Total VLDL Cholesterol 57 mg/dL (0-30) H 06/23/25 11:46 HDL Cholesterol 50 mg/dL (60-100) L 06/23/25 11:46 Cholesterol/HDL Ratio 4.06 mg/dL (0.0-4.40) 06/23/25 11:46 Lipase 72 U/L (13-60) H 06/23/25 11:46 Vitals Last Vital Signs Temp 97.1 F L 06/25/25 11:57 Pulse 97 06/25/25 11:57 Resp 20 H 06/25/25 11:57 BP 175/76 06/25/25 11:57 Pulse Ox 94 06/25/25 11:57 O2 Del Method Room Air 06/25/25 11:57 Discharge Plan Discharge Patient Disposition: Home Condition: Stable Prescriptions: New aspirin 81 mg Tablet,Delayed Release (Dr/Ec) 81 mg PO DAILY 30 Days Qty: 30 0RF nitroglycerin 0.4 mg Tablet, Sublingual 0.4 mg sublingual Q5M PRN (Reason: Chest Pain) 30 Days Qty: 30 0RF atorvastatin 40 mg Tablet 40 mg PO BEDTIME 30 Days Qty: 30 0RF cefdinir 300 mg capsule 300 mg PO BID 5 Days Qty: 10 0RF Continued pantoprazole 40 mg Tablet,Delayed Release (Dr/Ec) 40 mg PO DAILY isosorbide mononitrate 30 mg tablet extended release 24 hr See Rx Instructions .ROUTE .COMPLEX Rx Instructions: 60 mg orally in the morning/ 30 mg orally in the evening levothyroxine 50 mcg tablet 50 mcg PO DAILY diltiazem HCl 120 mg capsule,extended release 24hr 120 mg PO DAILY ranolazine 500 mg tablet extended release 12 hr 500 mg PO BID fenofibrate nanocrystallized 145 mg tablet 145 mg PO DAILY metoprolol tartrate 25 mg tablet 25 mg PO BID lorazepam 1 mg tablet 1 mg PO BID clopidogrel 75 mg tablet 75 mg PO DAILY 30 Days Qty: 30 0RF temazepam 30 mg capsule 30 mg PO BEDTIME dapagliflozin propanediol [Farxiga] 10 mg tablet 10 mg PO DAILY Discontinued fluconazole 150 mg tablet 150 mg PO Q72H pravastatin 20 mg tablet 20 mg PO DAILY Assembler Corncob Pipes OK for DC: Cardiology Discharge Order = DC NOW: Discharge Order (Routine); Ordered 06/25/25 Ordered By: Doug Lopez Referrals: Roverto Arnold MD [Primary Care Provider, Family Practice] - 4-7 days Referral Note: Please call for an follow-up appointment within 4 to 7 days. Thank you! Vicki Martínez MD [Physician, Interventional Pulmonology] - 1 month Referral Note: We have notified your physician's clinic of the need for a follow-up appointment to be scheduled. If you have not heard from them within the next 2 business days, please call them directly. Dot Arreguin FNP [Nurse Practitioner, Cardiology] Referral Note: We have notified your physician's clinic of the need for a follow-up appointment to be scheduled. If you have not heard from them within the next 2 business days, please call them directly. Discharge Diet: Cardiac Discharge Activity: Resume usual activity Patient Instructions: Nitroglycerin (By mouth), Orphenadrine Citrate/Aspirin/Caffeine (By mouth) (Norgesic Forte,..., Atorvastatin (By mouth) (Lipitor, Atorvaliq), Cefdinir (By mouth) (Omnicef), Hypertension (DC), Heart Catheterization (DC), Opioid Safety, Post Angiogram Home Care Instructions, Patient Portal & [place] Instructions Activity Restrictions/Additional Instructions: - If any chest pain please go to the emergency room - Please follow-up with cardiology in 1 week - Please continue take aspirin and Plavix, please do not stop taking these medications as they are keeping your heart stents open - For your left lower lung opacity, please follow-up with pulmonary in 3 to 4 weeks for follow-up, and consideration of CT of the chest Discharge Attestations Time Spent in Discharge Care*: greater than 30 min Status at Discharge: Cognitive status at discharge: cognitively intact, Behavioral status at discharge: cooperative and independent in ADL's, Quality Metrics Clinical Quality Measures [ No reported AMI, CVA or VTE this stay] Coding Level of Care Code 13242 Total time (in minutes) for Discharge: 45 Diagnoses Atherosclerosis of [place] coronary artery of [place] heart with unstable angina pectoris I25.110 [place] vs. transplanted heart: [place] heart NSTEMI (non-ST elevated myocardial infarction) I21.4 Dyslipidemia associated with type 2 diabetes mellitus E11.69; E78.5 Kidney disease, chronic, stage II (GFR 60-89 ml/min) N18.2 HTN (hypertension) I10
[2025-06-25] MEDS: cefTRIAXone 1,000 mg SDV 1000 MG IVP (13:01)
== END 2025-06-25 13:53 | disposition home or self-care (01) | DRG 322 ==
LOC: ER 12:25 → CSU 12:35
PROVIDERS: Internal Medicine; Internal Medicine Cardiovascular Disease; Admitting Provider Internal Medicine; Emergency Provider Emergency Medicine; PCP Family Medicine; Visit Provider Family Medicine
PROC: 027036Z Dilation of Coronary Artery, One Artery with Three Drug-eluting Intraluminal Devices, Percutaneous Approach (ICD-10-PCS; principal; 2025-06-24 14:00)
PROC: 027036Z Dilation of Coronary Artery, One Artery with Three Drug-eluting Intraluminal Devices, Percutaneous Approach (ICD-10-PCS; 2025-06-24 14:00)
DX: I21.4 Non-ST elevation (NSTEMI) myocardial infarction (principal); I25.10 Atherosclerotic heart disease of native coronary artery without angina pectoris; E78.5 Hyperlipidemia, unspecified; E11.22 Type 2 diabetes mellitus with diabetic chronic kidney disease; I12.9 Hypertensive chronic kidney disease with stage 1 through stage 4 chronic kidney disease, or unspecified chronic kidney disease; E11.42 Type 2 diabetes mellitus with diabetic polyneuropathy; N18.2 Chronic kidney disease, stage 2 (mild); E03.9 Hypothyroidism, unspecified; G47.30 Sleep apnea, unspecified; K21.9 Gastro-esophageal reflux disease without esophagitis; M48.062 Spinal stenosis, lumbar region with neurogenic claudication; Z79.02 Long term (current) use of antithrombotics/antiplatelets; Z95.1 Presence of aortocoronary bypass graft; Z87.440 Personal history of urinary (tract) infections; Z87.891 Personal history of nicotine dependence; Z98.890 Other specified postprocedural states
CPT/HCPCS: 36415; 36416; 71045; 80048; 80053; 80061; 82962; 83690; 83735; 84484; 85025; 85347; 85730; 93005; 93306; 93459; 96374; 99152; 99153; 99285; C1725; C1769; C1874; C1887; C1894; C9600; G0378; J0360; J0696; J1200; J1644; J2250; J2405; J3010; J3490; J7030; J9999; Q0144; Q9967

== ENCOUNTER 2025-07-06 17:58 | Emergency (ER) | payer OTHER, MEDICAID, SELFPAY ==
--- OUTSIDE RECORDS SUMMARY | 2022-12-01 10:00 | XMS_ITS | Continuity of Care Document ---
Author Organization [facility] Address [address] [id number] [address] Phone Care Team Providers Care Meeting Manager Name Role Phone Vitaly Daley DDS Unavailable [...] Diagnoses Date Provider Providers Copied on Encounter [facility], [id number]-Jf [place], [id number], [place] tel:[phone] Dental General No Information Thuy Haider. [address] [place] [address], [address], [place]. tel:[phone] Referring Provider: Vitaly Daley, [address] [place] [address], [address]. tel:[phone] [facility], [id number]-Tl [place], [address], [place] tel:[phone] Dental General Encounter for dental exam and cleaning w/o abnormal findings Thuy Haider. [address] [place] [address], [address], [place]. tel:[phone] Referring Provider: Vitaly Daley, [address] [place] [address], [address]. tel:[phone] [facility], [id number] [id number]-Xz [place], [place], [address], [place] tel:[phone] Dental General LL Encounter for dental exam and cleaning w/o abnormal findings Thuy Haider. [address] [place] [address], [address], [place]. tel:[phone] Referring Provider: Vitaly Daley, [address] [place] [address], [address]. tel:[phone] [facility], [id number] 101111EY-Tv [place], [address], [place] tel:[phone] [facility] No Information Migel Lizarraga. [address] [place], [place], [address], [place]. tel:[phone] Referring Provider: Nu Lainez, [address] [place], [address]. tel:[phone] Family History Family Member Type Diagnosis Age At Onset No Information Payers Payer name Insurance type Covered alliance party ID Angelita sparrow(s) D [facility] Advantage CI [id number] Social History Type Description Quantity Date Captured [...]
--- NOTE | 2025-07-06 18:00 | ECG_ITS ---
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
[2025-07-06 18:05] VITALS: BP 169/70; PULSE 86; RESP 17; TEMP 36.8; O2SAT 96; BMI 20.1
--- OUTSIDE RECORDS SUMMARY | 2025-07-06 18:05 | XMS_ITS | Encounter Summary ---
Author Organization [facility] Address [address] [place] [address] Care Team Providers Care Data Operations Director Name Role Phone Roverto Arnold MD Primary Care Provider [phone] Encounter Details Date Type Department Care Team (Late st Contact Info) Description 09/03/2003 Outpatient Historical [facility] Social History Tobacco Use Types Packs/Day Years Used Date Smoking Tobacco: Never Assessed Comments Unknown Sex and Gender Information Value Date Recorded Sex Assigned at Not on file Legal Sex Female 2:56 AM FUR BLENDER Gender Identity Not on file Sexual Orientation Not on file documented as of this encounter Plan of Treatment Not on file documented as of this encounter Visit Diagnoses Not on filedocumented in this encounter Additional Health Concerns Infection Onset Date Last Indicated Resolved Time R/O COVID-19 09/16/2020 09/16/2020 09/16/2020 11:3 5 PM FUR BLENDER COVID-19 09/17/2020 09/17/2020 10/07/2020 8:08 PM FUR BLENDER documented as of this encounter Care Teams Data Operations Director Relationship Specialty Start Date End Date Roverto Arnold MD [address] [place] [address] PCP - General 12/10/09 documented as of this encounter
--- OUTSIDE RECORDS SUMMARY | 2025-07-06 18:05 | XMS_ITS | Encounter Summary ---
Author Organization [facility] Address [address] [place] [address] Care Team Providers Care Viscosity Inspector Name Role Phone Roverto Arnold MD Primary Care Provider [phone] Encounter Details Date Type Department Care Team (Latest Contact Info) Description 10/21/2003 Outpatient Historical [facility] [address] [place] [address] Jose G Talley MD [address] [place] [phone] DIABETES UNCOMPL ADULT-UNCONTRLLED (Primary Dx) Social History Tobacco Use Types Packs/Day Years Used Date Smoking Tobacco: Never Assessed Comments Unknown Sex and Gender Information Value Date Recorded Sex Assigned at Not on file Legal Sex Female 2:56 AM PHOTOGRAPHER HELPER Gender Identity Not on file Sexual Orientation [...] COVID-19 09/16/2020 09/16/2020 09/16/2020 11:3 5 PM PHOTOGRAPHER HELPER COVID-19 09/17/2020 09/17/2020 10/07/2020 8:08 PM PHOTOGRAPHER HELPER documented as of this encounter Care Teams Viscosity Inspector Relationship Specialty Start Date End Date Roverto Arnold MD [address] [place] [address] PCP - General 12/10/09 documented as of this encounter
--- OUTSIDE RECORDS SUMMARY | 2025-07-06 18:05 | XMS_ITS | Encounter Summary ---
Author Organization [facility] Address [address] [place] [address] Care Team Providers Care Teacher Of The Deaf Name Role Phone Roverto Arnold MD Primary Care Provider [phone] Reason for Referral * Radiology Services (Routine) - Closed Specialty Diagnoses / Procedures Referred By Contac t Referred To Contact Radiology Diagnoses Hematoma Procedures US PELVIS LIMITED NON OB US RIGHT UPR QUADRANT Bird Hernandez MD Phone: tel: fax: [facility] Ultrasound [address] [place] [address] Phone: tel: fax: Referral ID Status Reason Start Date Expiration Date Visits Re quested Visits Authorized [id number] Closed 12/26/2018 01/26/2020 1 1 ASTRUCTURE TECHNICIAN Encounter Details Date Type Department Care Team (Late st Contact Info) Description 12/26/2018 Ancillary Orders [facility] Cardiology- [place] [address] [place] [address] Bird Hernandez MD [address] [facility] [address] [place] [address] Hematoma Social History Tobacco Use Types Packs/Day Years Used Date Smoking Tobacco: Former Cigarettes 4 30 0 07/06/1958 - 07/06/1988 Smokeless Tobacco: Never Alcohol Use Standard Drinks/Week Comments No 0 (1 standard drink = 0.6 oz pur e alcohol) Comments No Sex and Gender Information Value Date Recorded Sex Assigned at Not on file Legal Sex Female 2:56 AM INFRASTRUCTURE TECHNICIAN Gender Identity Not on file Sexual Orientation Not on file Occupation Industry Job Start Date Job End Date Not on file Not on file Not on file Not on file documented as of this encounter Plan of Treatment Not on file documented as of this encounter Results * US PELVIS LIMITED NON OB (12/26/2018 4:39 PM INFRASTRUCTURE TECHNICIAN) Anatomical Region Laterality Modality Pelvis Ultrasound 12/26/2018 4:39 PM INFRASTRUCTURE TECHNICIAN Impressions 12/27/2018 11:36 AM INFRASTRUCTURE TECHNICIAN IMPRESSION: 7.6 x 5 x 5.2 cm likely resolving hematoma within the right lower quadrant. [id number] Narrative 12/27/2018 11:36 AM INFRASTRUCTURE TECHNICIAN US PELVIS LIMITED NON OB Reason For [...] resolving hematoma within the right lower quadrant. [id number] us Bird Hernandez MD ORDERABLES Final Result documented in this encounter Visit Diagnoses Diagnosis Hematoma Contusion of unspecified site Hematoma Contusion of unspecified site documented in this encounter Additional Health Concerns Infection Onset Date Last Indicated Resolved Time R/O COVID-19 09/16/2020 09/16/2020 09/16/2020 11:3 5 PM INFRASTRUCTURE TECHNICIAN COVID-19 09/17/2020 09/17/2020 10/07/2020 8:08 PM INFRASTRUCTURE TECHNICIAN documented as of this encounter Care Teams Teacher Of The Deaf Relationship Specialty Start Date End Date Roverto Arnold MD [address] [place] [address] PCP - General 12/10/09 documented as of this encounter
--- OUTSIDE RECORDS SUMMARY | 2025-07-06 18:05 | XMS_ITS | Encounter Summary ---
Author Organization [facility] Address [address] [place] [address] Care Team Providers Care Colorist Name Role Phone Roverto Arnold MD Primary Care Provider [phone] Encounter Details Date Type Department Care Team (Latest Contact Info) Description 09/20/2003 Outpatient Historical [facility] [address] [place] [phone] Jose G Talley MD [address] [place] [phone] DIABETES UNCOMPL ADULT-UNCONTRLLED (Primary Dx) Social History Tobacco Use Types Packs/Day Years Used Date Smoking Tobacco: Never Assessed Comments Unknown Sex and Gender Information Value Date Recorded Sex Assigned at Not on file Legal Sex Female 2:56 AM AUTOMOTIVE BRAKE ADJUSTER Gender Identity Not on file Sexual Orientation [...] COVID-19 09/16/2020 09/16/2020 09/16/2020 11:3 5 PM AUTOMOTIVE BRAKE ADJUSTER COVID-19 09/17/2020 09/17/2020 10/07/2020 8:08 PM AUTOMOTIVE BRAKE ADJUSTER documented as of this encounter Care Teams Colorist Relationship Specialty Start Date End Date Roverto Arnold MD [address] [place] [address] PCP - General 12/10/09 documented as of this encounter
--- OUTSIDE RECORDS SUMMARY | 2025-07-06 18:05 | XMS_ITS | Encounter Summary ---
Author Organization [facility] Address [address] [place] [address] Care Team Providers Care Attendant Campground Name Role Phone Roverto Arnold MD Primary Care Provider [phone] Encounter Details Date Type Department Care Team (Late st Contact Info) Description 09/04/2003 Outpatient Historical [facility] Social History Tobacco Use Types Packs/Day Years Used Date Smoking Tobacco: Never Assessed Comments Unknown Sex and Gender Information Value Date Recorded Sex Assigned at Not on file Legal Sex Female 2:56 AM PULP DRIER FIRER Gender Identity Not on file Sexual Orientation Not on file documented as of this encounter Plan of Treatment Not on file documented as of this encounter Visit Diagnoses Not on filedocumented in this encounter Additional Health Concerns Infection Onset Date Last Indicated Resolved Time R/O COVID-19 09/16/2020 09/16/2020 09/16/2020 11:3 5 PM PULP DRIER FIRER COVID-19 09/17/2020 09/17/2020 10/07/2020 8:08 PM PULP DRIER FIRER documented as of this encounter Care Teams Attendant Campground Relationship Specialty Start Date End Date Roverto Arnold MD [address] [place] [address] PCP - General 12/10/09 documented as of this encounter
--- OUTSIDE RECORDS SUMMARY | 2025-07-06 18:05 | XMS_ITS | Encounter Summary ---
Author Organization [facility] Address [address] [place] [address] Care Team Providers Care Basketball Scout Name Role Phone Roverto Arnold MD Primary Care Provider [phone] Encounter Details Date Type Department Care Team (Latest Contact Info) Description 04/21/2021 Ancillary Orders [facility] Pre-Registration [place] CALL TO MAKE APPOINTMENT ONLY [address] [place] [address] Marie Askew NP [address] [place] [address] Asymptomatic menopause Social History Tobacco Use Types Packs/Day Years Used Date Smoking Tobacco: Former Cigarettes 4 30 0 07/06/1958 - 07/06/1988 Smokeless Tobacco: Never Alcohol Use Standard Drinks/Week Comments No 0 (1 standard drink = 0.6 oz pur e alcohol) Comments No Sex and Gender Information Value Date Recorded Sex Assigned at Not on file Legal Sex Female 2:56 AM ADVISORY SOFTWARE ENGINEER Gender Identity Not on file Sexual Orientation Not on file Occupation Industry Job Start Date Job End Date Not on file Not on file Not on file Not on file documented as of this encounter Plan of Treatment Not on file documented as of this encounter Visit Diagnoses Diagnosis Asymptomatic menopause documented in this encounter Care Teams Basketball Scout Relationship Specialty Start Date End Date Roverto Arnold MD [address] [place] [address] PCP - General 12/10/09 documented as of this encounter
--- OUTSIDE RECORDS SUMMARY | 2025-07-06 18:05 | XMS_ITS | Encounter Summary ---
Author Organization [facility] Address [address] [place] [address] Care Team Providers Care Orientor Name Role Phone Roverto Arnold MD Primary Care Provider [phone] Encounter Details Date Type Department Care Team (Latest Contact Info) Description 11/05/2005 Outpatient Historical [facility] Cardiology- [place] [address] [place] [address] Charli Barahona MD NO ADDRESS ON FILE CHR ISCHEMIC HRT DIS NEC (Primary Dx); MIXED HYPERLIPIDEMIA; Benign hypertension; DIABETES MELLITUS TYPE II-UNCOMPL ([facility] Social History Tobacco Use Types Packs/Day Years Used Date Smoking Tobacco: Never Assessed Comments Unknown Sex and Gender Information Value Date Recorded Sex Assigned at Not on file Legal Sex Female 2:56 AM BUSINESS BANKING RELATIONSHIP MANAGER Gender Identity Not on file Sexual [...] COVID-19 09/16/2020 09/16/2020 09/16/2020 11:3 5 PM BUSINESS BANKING RELATIONSHIP MANAGER COVID-19 09/17/2020 09/17/2020 10/07/2020 8:08 PM BUSINESS BANKING RELATIONSHIP MANAGER documented as of this encounter Care Teams Orientor Relationship Specialty Start Date End Date Roverto Arnold MD [address] [place] [address] PCP - General 12/10/09 documented as of this encounter
--- OUTSIDE RECORDS SUMMARY | 2025-07-06 18:05 | XMS_ITS | Encounter Summary ---
Author Organization [facility] Address [address] [place] [address] Care Team Providers Care Broke Handler Name Role Phone Roverto Arnold MD Primary Care Provider [phone] Reason for Referral * Outpatient Services (Routine) - Closed Specialty Diagnoses / Procedures Referred By Contac t Referred To Contact Radiology Diagnoses Goiter, unspecified Procedures US HEAD NECK TISSUES Marie Askew NP [address] [place] [address] Phone: tel: fax: [facility] Ultrasound [address] [place] [address] Phone: tel: fax: Referral ID Status Reason Start Date Expiration Date V isits Requested Visits Authorized [id number] Closed [facility] TO SCHEDULE (SGF) 01/23/2013 02/23/2014 1 1 Encounter Details Date Type Department Care Team (Latest Contact Info) Description 01/23/2013 Ancillary Orders [facility] Pre-Registration [place] CALL TO MAKE APPOINTMENT ONLY [address] [place] [address] Marie Askew NP [address] [place] [address] Goiter, unspecified (Primary Dx) Social History Tobacco Use Types Packs/Day Years Used Date Smoking Tobacco: Former Cigarettes 4 30 0 07/06/1958 - 07/06/1988 Smokeless Tobacco: Never Alcohol Use Standard Drinks/Week Comments No 0 (1 standard drink = 0.6 oz pur e alcohol) Comments No Sex and Gender Information Value Date Recorded Sex Assigned at Not on file Legal Sex Female 2:56 AM COMMERCIAL ENERGY AUDITOR Gender Identity Not on file Sexual Orientation [...] 1. Unremarkable examination. rli - uploaded from [employer] - Narrative Procedure Note Mick Ferreira MD [...] from Power Scribe - us Marie Askew MANAGER COSMETIC US ORDERABLES Final Res ult documented in this encounter Visit Diagnoses Diagnosis Goiter, unspecified- Primary Goiter, unspecified documented in this encounter Additional Health Concerns Infection Onset Date Last Indicated Resolved Time R/O COVID-19 09/16/2020 09/16/2020 09/16/2020 11:3 5 PM COMMERCIAL ENERGY AUDITOR COVID-19 09/17/2020 09/17/2020 10/07/2020 8:08 PM COMMERCIAL ENERGY AUDITOR documented as of this encounter Care Teams Broke Handler Relationship Specialty Start Date End Date Roverto Arnold MD [address] [place] [address] PCP - General 12/10/09 documented as of this encounter
--- OUTSIDE RECORDS SUMMARY | 2025-07-06 18:05 | XMS_ITS | Encounter Summary ---
Author Organization [facility] Address [address] [place] [address] Care Team Providers Care School Curriculum Developer Name Role Phone Roverto Arnold MD Primary Care Provider [phone] Encounter Details Date Type Department Care Team (Latest Contact Info) Description 08/20/2004 Outpatient Historical [facility] General and Trauma Surgery-[address] [place] [address] Ted Chappell MD [address] [place] [phone] CAROTID ART OCCL-NO INFARCT (Primary Dx); HEADACHE Social History Tobacco Use Types Packs/Day Years Used Date Smoking Tobacco: Never Assessed Comments Unknown Sex and Gender Information Value Date Recorded Sex Assigned at Not on file Legal Sex Female 2:56 AM AUTOMOTIVE ELECTRICIAN Gender Identity Not on file Sexual Orientation [...] 09/16/2020 09/16/2020 09/16/2020 11:3 5 PM AUTOMOTIVE ELECTRICIAN COVID-19 09/17/2020 09/17/2020 10/07/2020 8:08 PM AUTOMOTIVE ELECTRICIAN documented as of this encounter Care Teams School Curriculum Developer Relationship Specialty Start Date End Date Roverto Arnold MD [address] [place] [address] PCP - General 12/10/09 documented as of this encounter
--- OUTSIDE RECORDS SUMMARY | 2025-07-06 18:05 | XMS_ITS | Encounter Summary ---
Author Organization [facility] Address [address] [place] [address] Care Team Providers Care Commercial Journeyman Electrician Name Role Phone Roverto Arnold MD Primary Care Provider [phone] Encounter Details Date Type Department Care Team (Latest Contact Info) Description 02/09/2006 Outpatient Historical [facility] Cardiovascular Services [address] [place] [address] Markie Ramírez MD NO ADDRESS ON FILE Generalized and Unspecified Atherosclerosis (Primary Dx) Social History Tobacco Use Types Packs/Day Years Used Date Smoking Tobacco: Never Assessed Comments Unknown Sex and Gender Information Value Date Recorded Sex Assigned at Not on file Legal Sex Female 2:56 AM AVIONICS MANAGER Gender Identity Not on file Sexual Orientation Not on file documented as of this encounter Plan of Treatment Not on file documented as of this encounter Visit Diagnoses Diagnosis Generalized and unspecified atherosclerosis- Primary documented in this encounter Additional Health Concerns Infection Onset Date Last Indicated Resolved Time R/O COVID-19 09/16/2020 09/16/2020 09/16/2020 11:3 5 PM AVIONICS MANAGER COVID-19 09/17/2020 09/17/2020 10/07/2020 8:08 PM AVIONICS MANAGER documented as of this encounter Care Teams Commercial Journeyman Electrician Relationship Specialty Start Date End Date Roverto Arnold MD [address] [place] [address] PCP - General 12/10/09 documented as of this encounter
--- OUTSIDE RECORDS SUMMARY | 2025-07-06 18:05 | XMS_ITS | Clinical Summary ---
Author Organization [facility] Address [address] [place] [address] Phone Care Team Providers Care Time Study Clerk Name Role Phone Roverto Arnold MD Primary Care Provider [phone] Allergies Active Allergy Reactions Criticality Noted Date [...] D (coronary artery disease),Pure hyperglyceridemia,DM (diabetes mellitus) ([facility]) Take 50 mcg by mouth daily family resource coordinator. Active aspirin (ECOTRIN EC) 81 mg Tablet, [...] daily. 90 Tablet 1 9 1:21 PM DIRECTOR DRUG 12/12/19 19 Active ranolazine ER (RANEXA) 500 [...] (04/26/2020): Added automatically from request for surgery [id number] Unstable angina 12/06/2018 06/10/2019 Chest pain 06/19/2015 [...] on file Legal Sex Female 2:56 AM DIRECTOR DRUG Gender Identity Not on file Sexual Orientation [...] history exists Medical Devices Implanted Type Area Wax Specialist Device Identifier Shelf Expiration Date Model / Serial / Lot Sealant Progel Pleural 4ml [id number] - [id number] Implanted:Qty: 1 on 02/20/2013 by Fabio Islas MD at [facility] Biological N/A: Chest CR BARD- DAVOL INC 09/22/2014 [id number] / / [id number] Sealant Mynx Occ Ther 6-7fr [id number] - [id number] Implanted:12/2019 at [facility] (Quantity not on file) Closure Device Right: Groin ACCESS CLOSURE 01/22/2022 [id number] / / [id number] Closure Perclose Proglide [id number] - [id number] Implanted:Qty: 1 on 02/05/2021 at [facility] Closure Device Right: Groin DUDLEY- VASC DEVICE 10/24/2022 [id number] / / [id number] Aulander Ptfe Thck 1.6mmx2.5x10.2 cm [id number] - [id number] Implanted:Qty: 1 on 02/20/2013 by Fabio Islas MD at [facility] Graft N/A: Chest CR BARD- GUILLERMO VASC INC 08/22/2017 [id number] / / [id number] Aulander Ptfe Thck 1.6mmx2.5x2.5c m [id number] - [id number] Implanted:Qty: 1 on 02/20/2013 at [facility] Graft CR BARD- GUILLERMO VASC INC 12/22/2017 [id number] / / [id number] Sealant Floseal W/ Adptr 10ml [id number] - [id number] Implanted:Qty: 1 on 02/20/2013 by Fabio Islas MD at [facility] Sealant N/A: Chest LOPES- BIOSCIENCE 02/20/2014 [id number] / / [id number] Sealant Floseal W/ Adptr 10ml [id number] - [id number] Implanted:Qty: 1 on 02/20/2013 by Niranjan Reilly MD at [facility] Sealant LOPES- BIOSCIENCE 04/23/2014 [id number] / / [id number] Promus Premier 2.25x12 Implanted:06/2015 (Quantity not on file) Stent Stent Synergy Mr 4.0x28mm Drug Elut [id number] - [id number] Implanted:12/2019 at [facility] (Quantity not on file) Stent Right: Coronary BOSTON SCI MAULIK 09/12/2021 [id number] / / [id number] Stent Synergy Mr 2.5x16mm Drug Elut [id number] - [id number] Implanted:Qty: 1 on 02/05/2021 by Bird Hernandez MD at [facility] Stent Left: Coronary [employer] MAULIK 09/11/2022 [id number] / / [id number] Stent Synergy Mr 4.0x8mm Drug Elut [id number] - [id number] Implanted:Qty: 1 on 02/05/2021 by Bird Hernandez MD at [facility] Stent Left: Coronary [employer] MAULIK 08/05/2022 [id number] / / [id number] Stent Synergy Mr 4.0x12mm Drug Elut [id number] - [id number] Implanted:Qty: 1 on 02/05/2021 by Bird Hernandez MD at [facility] Stent Right: Coronary [employer] MAULIK 08/27/2022 [id number] / / [id number] Marker Graft 1001-83 - [id number] Implanted:Qty: 1 on 02/20/2013 by Fabio Islas MD at [facility] N/A: Chest ROMAN INT 05/22/2016 1001-83 / / [id number] Explanted Type Area Wax Specialist Device Identifier Shelf Expiration Date Model / Serial / Lot Stent Graftmaster 4.5x19 Rx [id number] - [id number] Implanted:Qty: 1 Explanted:Qty: 1 on 04/26/2020 at [facility] Stent Right: Coronary DUDLEY- VASC DEVICE 02/21/2021 [id number] / / [id number] Description:inserted and rem chayo undeployed and intact Procedures Procedure Name Priority Date/Time Associated Diagnosis Comments LIPID PANEL Routine 02/04/2021 8:33 AM CDT Multiple vessel coronary artery disease PVD (peripheral vascular disease) HEMOGLOBIN A1C Routine 12/06/2018 11:56 PM DIRECTOR DRUG from Last 3 Months or Most Recently Relevant to Health Maintenance Results * (ABNORMAL) LIPID PANEL (02/04/2021 8:33 AM CDT) CHOLESTEROL 231(H) <200 mg/dL 02/04/2021 9:30 PM CDT [facility] [place] TRIGLYCERIDE 493(H) <150 mg/dL 02/04/2021 9:30 PM CDT [facility] HDL 40 40 - 59 mg/dL 02/04/2021 9:30 PM CDT [facility] LDL CALCULATED 02/04/2021 9:30 PM CDT [facility] Comment:Calculated LDL is no t accurate when the Triglyceride value exceeds 400. NON-HDL CHOLESTEROL 191(H) <130 mg/dL 02/04/2021 9:30 PM CDT [facility] Blood Venipuncture / Unknown 02/04/2021 8:33 AM CDT 02/04/2021 8:14 PM CDT Narrative [facility] - 02/04/2021 9:30 PM [...] CHEMISTRY ORDERABLES Final Result Performing Organization Address [facility] de Phone Number [facility] CLIA# [id number] [address] [place] [address] * (ABNORMAL) HEMOGLOBIN A1C (12/06/2018 11:56 PM DIRECTOR DRUG) HEMOGLOBIN A1C 7.7(H) 4.0 - 6.0 % 12/07/2018 12:24 PM DIRECTOR DRUG [facility] EST. AVG GLUCOSE, A1C 174 mg/dL 12/07/2018 12:24 PM [facility] Blood Venipuncture / Unknown 12/06/2018 11:56 PM DIRECTOR DRUG 12/07/2018 12:08 AM DIRECTOR DRUG Narrative [facility] - 12/07/2018 12:24 PM DIRECTOR DRUG HGB A1C INTERPRETATION NORMAL: <5.7% PRE-DIABETES: 5.7 - 6.4% DIABETES: 6.5% OR GREATER Barrera Corral MD CHEMISTRY ORDERABLES Fi nal Result Performing Organization Address [facility] Co de Phone Number [facility] CLIA# [id number] [address] [place], [place] [address] from Last 3 Months or Most Recently Relevant to Health Maintenance Insurance MEDICAID [facility] DUAL COMPLETE MCR PPO D-SNP RX [facility] Medicare Part D RX INFOCROSSING Medicaid Advance Directives For more information, please contact: [phone] * Full Code (Latest Code Status on [...] 11:48 AM 04/25/2020 10:44 PM Care Teams Time Study Clerk Relationship Specialty Start Date End Date Roverto Arnold MD [address] [place] [address] PCP - General 12/10/09
--- OUTSIDE RECORDS SUMMARY | 2025-07-06 18:05 | XMS_ITS | Encounter Summary ---
Author Organization [facility] Address [address] [place] [address] Care Team Providers Care Dramatic Art Teacher Name Role Phone Roverto Arnold MD Primary Care Provider [phone] Reason for Referral * Outpatient Services (Routine) - Closed Specialty Diagnoses / Procedures Referred By Contac t Referred To Contact Cardiology Diagnoses Carotid artery bruit Coronary artery disease Procedures US CAROTID DOPPLER Marie Askew NP [address] [place] [address] Phone: tel: fax: [facility] Cardiovascular Services [address] [place] [address] Phone: tel: fax: Referral ID Status Reason Start Date Expiration Date Visits Re quested Visits Authorized [id number] Closed 07/29/2011 07/28/2012 1 1 * Outpatient Services (Routine) - Closed Specialty Diagnoses / Procedures Referred By Contac t Referred To Contact Diagnoses Shoulder pain Procedures MRI SHOULDER WO CONTRAST RIGHT Marie Askew NP [address] [place] [address] Phone: tel: fax: Referral ID Status Reason Start Date Expiration Date Visits Re quested Visits Authorized [id number] Closed 07/29/2011 07/28/2012 1 1 Encounter Details Date Type Department Care Team (Latest Contact Info) Description 07/29/2011 Ancillary Orders [facility] Pre-Registration Garden CALL TO MAKE APPOINTMENT ONLY [address] [place] [phone] Marie Askew NP [address] [place] [address] Shoulder pain; Decreased range of motion of [...] on file Legal Sex Female 2:56 AM STRATEGY INTERN Gender Identity Not on file Sexual [...] and correlate clinically. [email or web address] - uploaded from [employer]- Narrative 08/11/2011 2:49 PM CDT Exam: MRI [...] and correlate clinically. [email or web address] - uploaded from [employer]- us Marie Askew NP MR ORDERABLES Final Res ult * US CAROTID DOPPLER (08/11/2011 10:55 AM CDT) Anatomical Region Laterality Modality Neck Ultrasound 08/11/2011 9:39 AM CDT Narrative 08/11/2011 10:58 AM CDT [facility] Cardiovascular Services Noninvasive Vascular Laboratory [address] [place] [address] Noninvasive Vascular Lab Cerebrovascular Exam Carotid Duplex Patient: Yadira Cruz Study ID: US CAROTID DOPPL Gender: F : 1945 Age: 65 Room: Height: Weight: BSA: Pt status: Outpatient Study Date: 08/11/2011 Study Time: 09:39 AM BSA: Ordering: Rosa Elena Askew Interpreting:Ned Vega MD Exhaust Emissions Inspector: Alma Coffey RVT History: A bruit of [...] - Left vertebral - 0.43m/sec Antegrade flow [facility] is accredited with the Intersocietal Commission for the Accreditation of Vascular Laboratories (ICAVL) Prepared and Electronically Authenticated Ned Vega MD Confirmed 08/11/2011 10:58 Procedure Note Ned Vega MD - 08/11/2011 [facility] Cardiovascular Services Noninvasive Vascular Laboratory [address] [place] [address] Noninvasive Vascular Lab Cerebrovascular Exam Carotid Duplex Patient: Yadira Cruz Study ID: US CAROTID DOPPL Gender: Jerad : 1945 Age: 65 Room: Height: Weight: BSA: Pt status: Outpatient Study Date: 08/11/2011 Study Time: 09:39 AM BSA: Ordering: Rosa Elena Askew Interpreting:Ned Vega MD Exhaust Emissions Inspector: Alma Coffey RVT History: A bruit of [...] - Left vertebral - 0.43m/sec Antegrade flow [facility] is accredited with the Intersocietal [...] Coronary atherosclerosis of unspecified type of vessel, iroquois or graft Carotid artery bruit Other symptoms involving cardiovascular system Coronary artery disease Coronary atherosclerosis of unspecified type of vessel, iroquois or graft Shoulder pain Pain in joint, shoulder region documented in this encounter Additional Health Concerns Infection Onset Date Last Indicated Resolved Time R/O COVID-19 09/16/2020 09/16/2020 09/16/2020 11:3 5 PM STRATEGY INTERN COVID-19 09/17/2020 09/17/2020 10/07/2020 8:08 PM STRATEGY INTERN documented as of this encounter Care Teams Dramatic Art Teacher Relationship Specialty Start Date End Date Roverto Arnold MD [address] [place] [address] PCP - General 12/10/09 documented as of this encounter
--- OUTSIDE RECORDS SUMMARY | 2025-07-06 18:05 | XMS_ITS | Encounter Summary ---
Author Organization [facility] Address [address] [place] [address] Care Team Providers Care Nutrition Services Associate Name Role Phone Roverto Arnold MD Primary Care Provider [phone] Encounter Details Date Type Department Care Team (Latest Contact Info) Description 12/16/2004 Outpatient Historical [facility] Cardiac Supervisor Production [address] [place] [address] Charli Barahona MD NO ADDRESS ON FILE CORON ATHEROSCL CHITIMACHA CORON VESSEL (Primary Dx) Social History Tobacco Use Types Packs/Day Years Used Date Smoking Tobacco: Never Assessed Comments Unknown Sex and Gender Information Value Date Recorded Sex Assigned at Not on file Legal Sex Female 2:56 AM MEDICAL RECEPTIONIST MEDICAL ASSISTANT Gender Identity Not on file Sexual Orientation Not on file documented as of this encounter Plan of Treatment Not on file documented as of this encounter Procedures Procedure Name Priority Date/Time Associated Diagnosis Comments PT AND APTT Routine 12/16/2004 9:12 AM MEDICAL RECEPTIONIST MEDICAL ASSISTANT CBC WITHOUT DIFFERENTIAL Routine 12/16/2004 9:12 AM MEDICAL RECEPTIONIST MEDICAL ASSISTANT BASIC METABOLIC PANEL Routine 12/16/2004 9:12 AM MEDICAL RECEPTIONIST MEDICAL ASSISTANT documented in this encounter Results * PT AND APTT (12/16/2004 9:12 AM MEDICAL RECEPTIONIST MEDICAL ASSISTANT) PROTIME 13.1 12.4 - 14.9 Secs INTERFACE SYSTEM Comment: As of 04 note change in normal range. INR 0.9 INTERFACE SYSTEM Comment: Expected Values for INR: DVT/PE Goal INR 2.5; range 2.0 - 3.0 Valve Replacement Tissue Goal INR 2.5; range 2.0 - 3.0 Mechanical Goal INR 3.0; range 2.5 - 3.5 POST-SD Goal INR 2.5; range 2.0 - 3.0 or Goal 3.0; range 2.5 - 3.5 Atrial Fibrillation Goal INR 2.5; range 2.0 - 3.0 Ischemic Stroke Goal INR 2.5; range 2.0 - 3.0 For additional information see Guidelines for Anticoagulation available from the pharmacy Matt Matson PTT 28.0 24.3 - 37.5 Secs INTERFACE SYSTEM Comment:Therapeutic Range: 12/16/2004 9:12 AM MEDICAL RECEPTIONIST MEDICAL ASSISTANT Charli Barahona MD HEMATOLOGY ORDERABLES Jessica l Result INTERFACE SYSTEM Refer to clinic/hospital department * (ABNORMAL) CBC WITHOUT DIFFERENTIAL (12/16/2004 9:12 AM MEDICAL RECEPTIONIST MEDICAL ASSISTANT) [facility] WBC 4.4(L) 4.8 - 10.8 K/ul [...] 0.2 K/ul INTERFACE SYSTEM 12/16/2004 9:12 AM MEDICAL RECEPTIONIST MEDICAL ASSISTANT Charli Barahona MD HEMATOLOGY ORDERABLES Jessica l Result Performing Organization Address City/[facility] Co de Phone Number INTERFACE SYSTEM Refer to clinic/hospital department * (ABNORMAL) BASIC METABOLIC PANEL (12/16/2004 9:12 AM MEDICAL RECEPTIONIST MEDICAL ASSISTANT) GLUCOSE 112(H) 70 - 110 mg/dL INTERFACE [...] 10.5 mg/dL INTERFACE SYSTEM 12/16/2004 9:12 AM MEDICAL RECEPTIONIST MEDICAL ASSISTANT Charli Barahona MD CHEMISTRY ORDERABLES Final Result Performing Organization Address [facility] Co de Phone Number INTERFACE SYSTEM Refer to clinic/hospital department documented in this encounter Visit Diagnoses Diagnosis Coronary atherosclerosis of [place] coronary artery- Primary documented in this encounter Additional Health Concerns Infection Onset Date Last Indicated Resolved Time R/O COVID-19 09/16/2020 09/16/2020 09/16/2020 11:3 5 PM MEDICAL RECEPTIONIST MEDICAL ASSISTANT COVID-19 09/17/2020 09/17/2020 10/07/2020 8:08 PM MEDICAL RECEPTIONIST MEDICAL ASSISTANT documented as of this encounter Care Teams Nutrition Services Associate Relationship Specialty Start Date End Date Roverto Arnold MD [address] [place] [address] PCP - General 12/10/09 documented as of this encounter
--- OUTSIDE RECORDS SUMMARY | 2025-07-06 18:05 | XMS_ITS | Encounter Summary ---
Author Organization [facility] Address [address] [place] [address] Care Team Providers Care Type Soldering Machine Tender Name Role Phone Roverto Arnold MD Primary Care Provider [phone] Encounter Details Date Type Department Care Team (Latest Contact Info) Description 08/24/2005 Outpatient Historical [facility] General and Trauma Surgery-[address] [place] [address] CAROTID ART OCCL-NO INFARCT (Primary Dx); PERIPH VASCULAR DIS NOS; DIABETES MELLITUS TYPE II-UNCOMPL (CMS/HCC); Pain in limb Social History Tobacco Use Types Packs/Day Years Used Date Smoking Tobacco: Never Assessed Comments Unknown Sex and Gender Information Value Date Recorded Sex Assigned at Not on file Legal Sex Female 2:56 AM RADIOGRAPHER TECHNOLOGIST Gender Identity Not on file Sexual Orientation [...] COVID-19 09/16/2020 09/16/2020 09/16/2020 11:3 5 PM RADIOGRAPHER TECHNOLOGIST COVID-19 09/17/2020 09/17/2020 10/07/2020 8:08 PM RADIOGRAPHER TECHNOLOGIST documented as of this encounter Care Teams Type Soldering Machine Tender Relationship Specialty Start Date End Date Roverto Arnold MD [address] [place] [address] PCP - General 12/10/09 documented as of this encounter
--- OUTSIDE RECORDS SUMMARY | 2025-07-06 18:05 | XMS_ITS | Encounter Summary ---
Author Organization [facility] Address [address] [place] [address] Care Team Providers Care Auto Machinist Name Role Phone Roverto Arnold MD Primary Care Provider [phone] Encounter Details Date Type Department Care Team (Latest Contact Info) Description 11/21/2003 Outpatient Historical [facility] [address] [place] [phone] Jose G Talley MD [address] [place] [phone] DIABETES UNCOMPL ADULT-UNCONTRLLED (Primary Dx) Social History Tobacco Use Types Packs/Day Years Used Date Smoking Tobacco: Never Assessed Comments Unknown Sex and Gender Information Value Date Recorded Sex Assigned at Not on file Legal Sex Female 2:56 AM ECOTHERAPIST Gender Identity Not on file Sexual Orientation [...] COVID-19 09/16/2020 09/16/2020 09/16/2020 11:3 5 PM ECOTHERAPIST COVID-19 09/17/2020 09/17/2020 10/07/2020 8:08 PM ECOTHERAPIST documented as of this encounter Care Teams Auto Machinist Relationship Specialty Start Date End Date Roverto Arnold MD [address] [place] [address] PCP - General 12/10/09 documented as of this encounter
--- OUTSIDE RECORDS SUMMARY | 2025-07-06 18:05 | XMS_ITS | Encounter Summary ---
Author Organization [facility] Address [address] [place] [address] Care Team Providers Care Angledozer Operator Name Role Phone Roverto Arnold MD Primary Care Provider [phone] Encounter Details Date Type Department Care Team [...] on file Legal Sex Female 2:56 AM WAREHOUSE PACKAGING SUPERVISOR Gender Identity Not on file Sexual Orientation Not on file documented as of this encounter Plan of Treatment Not on file documented as of this encounter Procedures Procedure Name Priority Date/Time Associated Diagnosis Comments POC GLUCOSE Routine 10/25/2004 5:43 AM WAREHOUSE PACKAGING SUPERVISOR POC GLUCOSE Routine 10/24/2004 5:17 PM WAREHOUSE PACKAGING SUPERVISOR documented in this encounter Results * (ABNORMAL) POC GLUCOSE (10/25/2004 5:43 AM WAREHOUSE PACKAGING SUPERVISOR) GLUCOSE POC 108(H) 60 - 100 mg/dL INTERFACE SYSTEM 10/25/2004 5:43 AM WAREHOUSE PACKAGING SUPERVISOR us Charli Barahona MD POINT OF CARE TESTING Jessica l Result INTERFACE SYSTEM Refer to clinic/hospital department * POC GLUCOSE (10/24/2004 5:17 PM WAREHOUSE PACKAGING SUPERVISOR) GLUCOSE POC 94 60 - 100 mg/dL INTERFACE SYSTEM 10/24/2004 5:17 PM WAREHOUSE PACKAGING SUPERVISOR Charli Barahona MD POINT OF CARE TESTING Jessica l Result Performing Organization Address [facility] Co de Phone Number INTERFACE SYSTEM Refer to clinic/hospital department documented in this encounter Visit Diagnoses Diagnosis Coronary atherosclerosis of unspecified type of vessel, [place] or graft- Primary documented in this encounter Additional Health Concerns Infection Onset Date Last Indicated Resolved Time R/O COVID-19 09/16/2020 09/16/2020 09/16/2020 11:3 5 PM WAREHOUSE PACKAGING SUPERVISOR COVID-19 09/17/2020 09/17/2020 10/07/2020 8:08 PM WAREHOUSE PACKAGING SUPERVISOR documented as of this encounter Care Teams Angledozer Operator Relationship Specialty Start Date End Date Roverto Arnold MD [address] [place] [address] PCP - General 12/10/09 documented as of this encounter
--- OUTSIDE RECORDS SUMMARY | 2025-07-06 18:05 | XMS_ITS | Encounter Summary ---
Author Organization [facility] Address [address] [place] [address] Care Team Providers Care Malted Milk Masher Name Role Phone Roverto Arnold MD Primary Care Provider [phone] Encounter Details Date Type Department Care Team (Latest Contact Info) Description 08/20/[address] [facility] Cardiovascular Services [address] [place] [address] Markie Ramírez MD NO ADDRESS ON FILE TRANSIENT CEREBRAL ISCHEMIA NOS (Primary Dx) Social History Tobacco Use Types Packs/Day Years Used Date Smoking Tobacco: Never Assessed Comments Unknown Sex and Gender Information Value Date Recorded Sex Assigned at Not on file Legal Sex Female 2:56 AM MUSHROOM GROWING SUPERVISOR Gender Identity Not on file Sexual Orientation Not on file documented as of this encounter Plan of Treatment Not on file documented as of this encounter Visit Diagnoses Diagnosis Unspecified transient cerebral ischemia- Primary documented in this encounter Additional Health Concerns Infection Onset Date Last Indicated Resolved Time R/O COVID-19 09/16/2020 09/16/2020 09/16/2020 11:3 5 PM MUSHROOM GROWING SUPERVISOR COVID-19 09/17/2020 09/17/2020 10/07/2020 8:08 PM MUSHROOM GROWING SUPERVISOR documented as of this encounter Care Teams Malted Milk Masher Relationship Specialty Start Date End Date Roverto Arnold MD [address] [place] [address] PCP - General 12/10/09 documented as of this encounter
--- OUTSIDE RECORDS SUMMARY | 2025-07-06 18:05 | XMS_ITS | Encounter Summary ---
Author Organization [facility] Address [address] [place] [address] Care Team Providers Care Guest Services Lead Name Role Phone Roverto Arnold MD Primary Care Provider [phone] Encounter Details Date Type Department Care Team (Latest Contact Info) Description 08/24/2005 Outpatient Historical [facility] Cardiovascular Services [address] [place] [address] [place] [address] Markie Ramírez MD NO ADDRESS ON FILE CAROTID ART OCCL-NO INFARCT (Primary Dx) Social History Tobacco Use Types Packs/Day Years Used Date Smoking Tobacco: Never Assessed Comments Unknown Sex and Gender Information Value Date Recorded Sex Assigned at Not on file Legal Sex Female 2:56 AM PIG FARM MANAGER Gender Identity Not on file Sexual [...] COVID-19 09/16/2020 09/16/2020 09/16/2020 11:3 5 PM PIG FARM MANAGER COVID-19 09/17/2020 09/17/2020 10/07/2020 8:08 PM PIG FARM MANAGER documented as of this encounter Care Teams Guest Services Lead Relationship Specialty Start Date End Date Roverto Arnold MD [address] [place] [address] PCP - General 12/10/09 documented as of this encounter
--- OUTSIDE RECORDS SUMMARY | 2025-07-06 18:05 | XMS_ITS | Encounter Summary ---
Author Organization [facility] Address [address] [place] [address] Care Team Providers Care Filing Clerk Name Role Phone Roverto Arnold MD Primary Care Provider [phone] Encounter Details Date Type Department Care Team (Late st Contact Info) Description 12/10/2003 Outpatient Historical [facility] General and Trauma Surgery-[address] [place] [address] Ursula Arita, MACHINE STACKER [address] [place] [address] CAROTID ART OCCL-NO INFARCT (Primary Dx); PERIPH VASCULAR DIS NOS; DIABETES UNCOMPL ADULT-TYPE II (CMS/HCC) Social History Tobacco Use Types Packs/Day Years Used Date Smoking Tobacco: Never Assessed Comments Unknown Sex and Gender Information Value Date Recorded Sex Assigned at Not on file Legal Sex Female 2:56 AM SHOE SPRAYER Gender Identity Not on file Sexual Orientation [...] COVID-19 09/16/2020 09/16/2020 09/16/2020 11:3 5 PM SHOE SPRAYER COVID-19 09/17/2020 09/17/2020 10/07/2020 8:08 PM SHOE SPRAYER documented as of this encounter Care Teams Filing Clerk Relationship Specialty Start Date End Date Roverto Arnold MD [address] [place] [address] PCP - General 12/10/09 documented as of this encounter
--- OUTSIDE RECORDS SUMMARY | 2025-07-06 18:05 | XMS_ITS | Encounter Summary ---
Author Organization [facility] Address [address] [place] [address] Care Team Providers Care Catalogue And Special Products Manager Name Role Phone Roverto Arnold MD Primary Care Provider [phone] Encounter Details Date Type Department Care Team (Late st Contact Info) Description 10/30/2003 Outpatient Historical [facility] Social History Tobacco Use Types Packs/Day Years Used Date Smoking Tobacco: Never Assessed Comments Unknown Sex and Gender Information Value Date Recorded Sex Assigned at Not on file Legal Sex Female 2:56 AM HOTEL NIGHT AUDITOR Gender Identity Not on file Sexual Orientation Not on file documented as of this encounter Plan of Treatment Not on file documented as of this encounter Visit Diagnoses Not on filedocumented in this encounter Additional Health Concerns Infection Onset Date Last Indicated Resolved Time R/O COVID-19 09/16/2020 09/16/2020 09/16/2020 11:3 5 PM HOTEL NIGHT AUDITOR COVID-19 09/17/2020 09/17/2020 10/07/2020 8:08 PM HOTEL NIGHT AUDITOR documented as of this encounter Care Teams Catalogue And Special Products Manager Relationship Specialty Start Date End Date Roverto Arnold MD [address] [place] [address] PCP - General 12/10/09 documented as of this encounter
--- OUTSIDE RECORDS SUMMARY | 2025-07-06 18:05 | XMS_ITS | Encounter Summary ---
Author Organization [facility] Address [address] [place] [address] Care Team Providers Care Plasterer Apprentice Name Role Phone Roverto Arnold MD Primary Care Provider [phone] Encounter Details Date Type Department Care Team (Latest Contact Info) Description 09/01/2004 Outpatient Historical [facility] Cardiology- [place] [address] [place] [address] Charli Barahona MD NO ADDRESS ON FILE PRECORDIAL PAIN (Primary Dx); MIXED HYPERLIPIDEMIA; DIABETES MELLITUS TYPE II-UNCOMPL (CMS/HCC); CHR ISCHEMIC HRT DIS NEC Social History Tobacco Use Types Packs/Day Years Used Date Smoking Tobacco: Never Assessed Comments Unknown Sex and Gender Information Value Date Recorded Sex Assigned at Not on file Legal Sex Female 2:56 AM DATA ANALYTICS ANALYST Gender Identity Not on file Sexual Orientation [...] COVID-19 09/16/2020 09/16/2020 09/16/2020 11:3 5 PM DATA ANALYTICS ANALYST COVID-19 09/17/2020 09/17/2020 10/07/2020 8:08 PM DATA ANALYTICS ANALYST documented as of this encounter Care Teams Plasterer Apprentice Relationship Specialty Start Date End Date Rvoerto Arnold MD [address] [place] [address] PCP - General 12/10/09 documented as of this encounter
--- OUTSIDE RECORDS SUMMARY | 2025-07-06 18:06 | XMS_ITS | Encounter Summary ---
Author Organization [facility] Address [address] Stephen: [place] [address] Care Team Providers Care Legal Financial Specialist Name Role Phone Roverto Arnold MD Primary Care Provider [phone] Encounter Details Date Type Department Care Team (Late st Contact Info) Description 01/17/2002 Outpatient Historical Yuan Plata MD NO ADDRESS ON FILE Social History Tobacco Use Types Packs/Day Years Used Date Smoking Tobacco: Never Assessed Comments Unknown Sex and Gender Information Value Date Recorded Sex Assigned at Not on file Legal Sex Female 2:[address] SHAFT AND STEERING POST REPAIRER Gender Identity Not on file Sexual Orientation Not on file documented as of this encounter Plan of Treatment Not on file documented as of this encounter Visit Diagnoses Not on filedocumented in this encounter Additional Health Concerns Infection Onset Date Last Indicated Resolved Time R/O COVID-19 09/16/2020 09/16/2020 09/16/2020 11:[address] SHAFT AND STEERING POST REPAIRER COVID-19 09/17/2020 09/17/2020 10/07/2020 8:[address] SHAFT AND STEERING POST REPAIRER documented as of this encounter Care Teams Legal Financial Specialist Relationship Specialty Start Date End Date Roverto Arnold MD [address] [place] [facility] [place] [address] PCP - General 12/10/09 documented as of this encounter
--- OUTSIDE RECORDS SUMMARY | 2025-07-06 18:06 | XMS_ITS | Encounter Summary ---
Author Organization [facility] Address [address] [place] [address] Care Team Providers Care Certified Corporate Travel Executive Name Role Phone Roverto Arnold MD Primary Care Provider [phone] Encounter Details Date Type Department Care Team (Latest Contact Info) Description 01/29/2003 Outpatient Historical [facility] Cardiology- [place] [address] [place] [address] Charli Barahona MD NO ADDRESS ON FILE ANGINA PECTORIS NEC/NOS (Primary Dx); CHR ISCHEMIC HRT DIS NEC; MIXED HYPERLIPIDEMIA Social History Tobacco Use Types Packs/Day Years Used Date Smoking Tobacco: Never Assessed Comments Unknown Sex and Gender Information Value Date Recorded Sex Assigned at Not on file Legal Sex Female 2:56 AM GRAIN GRADER Gender Identity Not on file Sexual Orientation [...] COVID-19 09/16/2020 09/16/2020 09/16/2020 11:3 5 PM GRAIN GRADER COVID-19 09/17/2020 09/17/2020 10/07/2020 8:08 PM GRAIN GRADER documented as of this encounter Care Teams Certified Corporate Travel Executive Relationship Specialty Start Date End Date Roverto Arnold MD [address] [place] [address] PCP - General 12/10/09 documented as of this encounter
--- OUTSIDE RECORDS SUMMARY | 2025-07-06 18:06 | XMS_ITS | Encounter Summary ---
Author Organization [facility] Address [address] [place] [address] Care Team Providers Care Slitter Helper Name Role Phone Roverto Arnold MD Primary Care Provider Encounter Details Date Type Department Care Team (Latest Contact Info) Description 11/30/2006 Outpatient [facility] [place] [address] [place], [place] [address] Bird Davis MD [address] [place] [address] Other Screening Mammogram (Primary Dx) Social History Tobacco Use Types Packs/Day Years Used Date Smoking Tobacco: Never Assessed Comments Unknown Sex and Gender Information Value Date Recorded Sex Assigned at Not on file Legal Sex Female 2:56 AM AIRBORNE ELECTRONICS ANALYST Gender Identity Not on file Sexual Orientation Not on file documented as of this encounter Plan of Treatment Not on file documented as of this encounter Visit Diagnoses Diagnosis Other screening mammogram- Primary documented in this encounter Additional Health Concerns Infection Onset Date Last Indicated Resolved Time R/O COVID-19 09/16/2020 09/16/2020 09/16/2020 11:3 5 PM AIRBORNE ELECTRONICS ANALYST COVID-19 09/17/2020 09/17/2020 10/07/2020 8:08 PM AIRBORNE ELECTRONICS ANALYST documented as of this encounter Care Teams Slitter Helper Relationship Specialty Start Date End Date Roverto Arnold MD [address] [facility] [place] [address] PCP - General 12/10/09 documented as of this encounter
--- OUTSIDE RECORDS SUMMARY | 2025-07-06 18:06 | XMS_ITS | Encounter Summary ---
Author Organization [facility] Address [address]: [place] [address] Care Team Providers Care Continuous Yarn Dyeing Machine Operator Name Role Phone Roverto Arnold MD Primary Care Provider [phone] Encounter Details Date Type Department Care Team (Late st Contact Info) Description 01/27/2002 Outpatient Historical Charli Barahona MD NO ADDRESS ON FILE Social History Tobacco Use Types Packs/Day Years Used Date Smoking Tobacco: Never Assessed Comments Unknown Sex and Gender Information Value Date Recorded Sex Assigned at Not on file Legal Sex Female 2:56 AM ACADEMIC AFFAIRS DIRECTOR Gender Identity Not on file Sexual Orientation Not on file documented as of this encounter Plan of Treatment Not on file documented as of this encounter Visit Diagnoses Not on filedocumented in this encounter Additional Health Concerns Infection Onset Date Last Indicated Resolved Time R/O COVID-19 09/16/2020 09/16/2020 09/16/2020 11:3 5 PM ACADEMIC AFFAIRS DIRECTOR COVID-19 09/17/2020 09/17/2020 10/07/2020 8:08 PM ACADEMIC AFFAIRS DIRECTOR documented as of this encounter Care Teams Continuous Yarn Dyeing Machine Operator Relationship Specialty Start Date End Date Roverto Arnold MD [address] [place] [facility] [place] [address] PCP - General 12/10/09 documented as of this encounter
--- OUTSIDE RECORDS SUMMARY | 2025-07-06 18:06 | XMS_ITS | Encounter Summary ---
Author Organization [facility] Address [address] [place] [address] Care Team Providers Care Asbestos Abatement Technician Name Role Phone Roverto Arnold MD Primary Care Provider [phone] Encounter Details Date Type Department Care Team (Latest Contact Info) Description 07/20/2003 Outpatient Historical [facility] Cardiology- [place] [address] [place] [address] Claire-Yoana Sow, ALEX [address] [facility] [address] [place] [address] PRECORDIAL PAIN (Primary Dx); CORON ATHEROSCL MECHOOPDA CORON VESSEL; MIXED HYPERLIPIDEMIA Social History Tobacco Use Types Packs/Day Years Used Date Smoking Tobacco: Never Assessed Comments Unknown Sex and Gender Information Value Date Recorded Sex Assigned at Not on file Legal Sex Female 2:56 AM MILLER HEAD Gender Identity Not on file Sexual Orientation Not on file documented as of this encounter Plan of Treatment Not on file documented as of this encounter Visit Diagnoses Diagnosis Precordial pain- Primary Coronary atherosclerosis of [place] coronary artery Mixed hyperlipidemia documented in this encounter Additional Health Concerns Infection Onset Date Last Indicated Resolved Time R/O COVID-19 09/16/2020 09/16/2020 09/16/2020 11:3 5 PM MILLER HEAD COVID-19 09/17/2020 09/17/2020 10/07/2020 8:08 PM MILLER HEAD documented as of this encounter Care Teams Asbestos Abatement Technician Relationship Specialty Start Date End Date Roverto Arnold MD [address] [place] [address] PCP - General 12/10/09 documented as of this encounter
--- OUTSIDE RECORDS SUMMARY | 2025-07-06 18:06 | XMS_ITS | Encounter Summary ---
Author Organization [facility] Address [address] [place] [address] Care Team Providers Care Metal Cans Supervisor Name Role Phone Roverto Arnold MD Primary Care Provider [phone] Encounter Details Date Type Department Care Team (Latest Contact Info) Description 12/02/1998 Outpatient Historical [facility] Family Medicine [place] [facility] [address] [facility] [address] [place] [address] Colten Mayer MD NO ADDRESS ON FILE Diaphragmatic hernia (Primary Dx) Social History Tobacco Use Types Packs/Day Years Used Date Smoking Tobacco: Never Assessed Comments Unknown Sex and Gender Information Value Date Recorded Sex Assigned at Not on file Legal Sex Female 2:56 AM WATCH MANUFACTURING SUPERVISOR Gender Identity Not on file Sexual Orientation Not on file documented as of this encounter Plan of Treatment Not on file documented as of this encounter Visit Diagnoses Diagnosis Diaphragmatic hernia- Primary Diaphragmatic hernia without mention of obstruction or gangrene documented in this encounter Additional Health Concerns Infection Onset Date Last Indicated Resolved Time R/O COVID-19 09/16/2020 09/16/2020 09/16/2020 11:3 5 PM WATCH MANUFACTURING SUPERVISOR COVID-19 09/17/2020 09/17/2020 10/07/2020 8:08 PM WATCH MANUFACTURING SUPERVISOR documented as of this encounter Care Teams Metal Cans Supervisor Relationship Specialty Start Date End Date Roverto Arnold MD [address] [place] [address] PCP - General 12/10/09 documented as of this encounter
--- OUTSIDE RECORDS SUMMARY | 2025-07-06 18:06 | XMS_ITS | Encounter Summary ---
Author Organization [facility] Address [address] [place] [address] Care Team Providers Care Manufacturing Technology Professor Name Role Phone Roverto Arnold MD Primary Care Provider [phone] Encounter Details Date Type Department Care Team (Latest Contact Info) Description 07/29/[address] [facility] Family Medicine [place] [facility] [address] [facility] [address] [place] [address] Colten Mayer MD NO ADDRESS ON FILE Other and unspecified hyperlipidemia (Primary Dx) Social History Tobacco Use Types Packs/Day Years Used Date Smoking Tobacco: Never Assessed Comments Unknown Sex and Gender Information Value Date Recorded Sex Assigned at Not on file Legal Sex Female 2:56 AM INSTITUTIONAL COOK Gender Identity Not on file Sexual Orientation Not on file documented as of this encounter Plan of Treatment Not on file documented as of this encounter Visit Diagnoses Diagnosis Other and unspecified hyperlipidemia- Primary documented in this encounter Additional Health Concerns Infection Onset Date Last Indicated Resolved Time R/O COVID-19 09/16/2020 09/16/2020 09/16/2020 11:3 5 PM INSTITUTIONAL COOK COVID-19 09/17/2020 09/17/2020 10/07/2020 8:08 PM INSTITUTIONAL COOK documented as of this encounter Care Teams Manufacturing Technology Professor Relationship Specialty Start Date End Date Roverto Arnold MD [address] [place] [address] PCP - General 12/10/09 documented as of this encounter
--- OUTSIDE RECORDS SUMMARY | 2025-07-06 18:06 | XMS_ITS | Encounter Summary ---
Author Organization [facility] Address [address] [place] [address] Care Team Providers Care Steeplechase Jockey Name Role Phone Roverto Arnold MD Primary Care Provider [phone] Encounter Details Date Type Department Care Team (Late st Contact Info) Description 03/08/2003 Outpatient Historical [facility] General and Trauma Surgery-[address] [place] [address] Ursula Arita, CANCER CENTER DIRECTOR [address] [place] [address] SURGERY FOLLOWUP, UNSPEC (Primary Dx) Social History Tobacco Use Types Packs/Day Years Used Date Smoking Tobacco: Never Assessed Comments Unknown Sex and Gender Information Value Date Recorded Sex Assigned at Not on file Legal Sex Female 2:56 AM COMPRESSION MOLDING MACHINE TENDER Gender Identity Not on file Sexual Orientation Not on file documented as of this encounter Plan of Treatment Not on file documented as of this encounter Visit Diagnoses Diagnosis Follow-up examination, following unspecified surgery- Primary documented in this encounter Additional Health Concerns Infection Onset Date Last Indicated Resolved Time R/O COVID-19 09/16/2020 09/16/2020 09/16/2020 11:3 5 PM COMPRESSION MOLDING MACHINE TENDER COVID-19 09/17/2020 09/17/2020 10/07/2020 8:08 PM COMPRESSION MOLDING MACHINE TENDER documented as of this encounter Care Teams Steeplechase Jockey Relationship Specialty Start Date End Date Roverto Arnold MD [facility] [place] [address] PCP - General 12/10/09 documented as of this encounter
--- OUTSIDE RECORDS SUMMARY | 2025-07-06 18:06 | XMS_ITS | Encounter Summary ---
Author Organization [facility] Address [address] [place] [address] Care Team Providers Care Telecommunications Operator Name Role Phone Roverto Arnold MD Primary Care Provider [phone] Encounter Details Date Type Department Care Team (Latest Contact Info) Description 11/22/1998 Outpatient Historical [facility] Family Medicine [place] [facility] [address] [facility] [address] [place] [address] Colten Mayer MD NO ADDRESS ON FILE Chest pain, unspecified (Primary Dx); Other and unspecified angina pectoris Social History Tobacco Use Types Packs/Day Years Used Date Smoking Tobacco: Never Assessed Comments Unknown Sex and Gender Information Value Date Recorded Sex Assigned at Not on file Legal Sex Female 2:56 AM NETWORK CONTRACT MANAGER Gender Identity Not on file Sexual Orientation Not on file documented as of this encounter Plan of Treatment Not on file documented as of this encounter Visit Diagnoses Diagnosis Chest pain, unspecified- Primary Other and unspecified angina pectoris documented in this encounter Additional Health Concerns Infection Onset Date Last Indicated Resolved Time R/O COVID-19 09/16/2020 09/16/2020 09/16/2020 11:3 5 PM NETWORK CONTRACT MANAGER COVID-19 09/17/2020 09/17/2020 10/07/2020 8:08 PM NETWORK CONTRACT MANAGER documented as of this encounter Care Teams Telecommunications Operator Relationship Specialty Start Date End Date Roverto Arnold MD [address] [place] [address] PCP - General 12/10/09 documented as of this encounter
--- OUTSIDE RECORDS SUMMARY | 2025-07-06 18:06 | XMS_ITS | Encounter Summary ---
Author Organization [facility] Address [address] [place] [address] Phone Care Team Providers Care Gusset Ripper Name Role Phone Marie Askew MD Primary Care Provider [phone] Reason for Visit * Reason Comments Med Refill Encounter Details Date Type Department Care Team ([facility] Contact Info) Description 10/06/2021 Refill [facility] [address] [place] [address] Lauren Gross NP [address] [place] [address] Stage 3b chronic kidney disease [...] Upcoming Encounters Date Type Department Care Team ([facility] Contact Info) Description 11/27/2025 2:50 PM PERL DEVELOPER Office Visit [email or web address] [address] [place], [place] [id number] Aaron Ugarte MD [address] [facility] [address] [place] [address] documented as of this encounter Visit Diagnoses Diagnosis Stage 3b chronic kidney disease (HCC) documented in this encounter Care Teams Gusset Ripper Relationship Specialty Start Date End Date Marie Askew MD [address] [address] PCP - General Nurse Practitioner 03/05/22 documented as of this encounter
--- OUTSIDE RECORDS SUMMARY | 2025-07-06 18:06 | XMS_ITS | Encounter Summary ---
Author Organization [facility] Address [address] [place] [address] Care Team Providers Care Jail Officer Name Role Phone Roverto Arnold MD Primary Care Provider [phone] Encounter Details Date Type Department Care Team (Latest Contact Info) Description 01/25/2007 Outpatient [facility] [address] [place] [address] Bird Davis MD [address] [place] [address] Disorder of Bone and Cartilage, Unspecified (Primary Dx) Social History Tobacco Use Types Packs/Day Years Used Date Smoking Tobacco: Never Assessed Comments Unknown Sex and Gender Information Value Date Recorded Sex Assigned at Not on file Legal Sex Female 2:56 AM TOOL GRINDER OPERATOR SURFACE Gender Identity Not on file Sexual Orientation [...] Bone Imaging, Whole Body: Radiopharmaceutical: Tc-99m HDP ([id number]) Dose: 21.4 mCiReason for Consultation: Diffuse bone [...] Bone Imaging, Whole Body: Radiopharmaceutical: Tc-99m HDP ([id number]) Dose: 21.4 mCiReason for Consultation: Diffuse bone [...] R/O COVID-19 09/16/2020 09/16/202009/1609/16/2020 11:3 5 PM TOOL GRINDER OPERATOR SURFACE COVID-19 09/17/2020 09/17/2020 10/07/2020 8:08 PM TOOL GRINDER OPERATOR SURFACE documented as of this encounter Care Teams Jail Officer Relationship Specialty Start Date End Date Roverto Arnold MD [address] [place] [address] PCP - General 12/10/09 documented as of this encounter
--- OUTSIDE RECORDS SUMMARY | 2025-07-06 18:06 | XMS_ITS | Encounter Summary ---
Author Organization [facility] Address [address] [place] [address] Care Team Providers Care Field Machinist Name Role Phone Roverto Arnold MD Primary Care Provider Encounter Details Date Type Department Care Team (Latest Contact Info) Description 04/05/2003 Outpatient Historical [facility] General and Trauma Surgery-[address] [place] [address] ABN AUDITORY PERCEPT NOS (Primary Dx) Social History Tobacco Use Types Packs/Day Years Used Date Smoking Tobacco: Never Assessed Comments Unknown Sex and Gender Information Value Date Recorded Sex Assigned at Not on file Legal Sex Female 2:56 AM MEDICAL TECHNOLOGIST PRN Gender Identity Not on file Sexual Orientation Not on file documented as of this encounter Plan of Treatment Not on file documented as of this encounter Visit Diagnoses Diagnosis Abnormal auditory perception, unspecified- Primary documented in this encounter Additional Health Concerns Infection Onset Date Last Indicated Resolved Time R/O COVID-19 09/16/2020 09/16/2020 09/16/2020 11:3 5 PM MEDICAL TECHNOLOGIST PRN COVID-19 09/17/2020 09/17/2020 10/07/2020 8:08 PM MEDICAL TECHNOLOGIST PRN documented as of this encounter Care Teams Field Machinist Relationship Specialty Start Date End Date Roverto Arnold MD [address] [place], [place] [address] PCP - General 12/10/09 documented as of this encounter
--- OUTSIDE RECORDS SUMMARY | 2025-07-06 18:06 | XMS_ITS | Encounter Summary ---
Author Organization [facility] Address [address] Stephen: [place] [address] Care Team Providers Care Computer Information Science Professor Name Role Phone Roverto Arnold MD Primary Care Provider [phone] Encounter Details Date Type Department Care Team (Late st Contact Info) Description 09/30/2001 Outpatient Historical Denise Maher Social History Tobacco Use Types Packs/Day Years Used Date Smoking Tobacco: Never Assessed Comments Unknown Sex and Gender Information Value Date Recorded Sex Assigned at Not on file Legal Sex Female 2:56 AM HEALTH CENTER MANAGER Gender Identity Not on file Sexual Orientation Not on file documented as of this encounter Plan of Treatment Not on file documented as of this encounter Visit Diagnoses Not on filedocumented in this encounter Additional Health Concerns Infection Onset Date Last Indicated Resolved Time R/O COVID-19 09/16/2020 09/16/2020 09/16/2020 11:3 5 PM HEALTH CENTER MANAGER COVID-19 09/17/2020 09/17/2020 10/07/2020 8:08 PM HEALTH CENTER MANAGER documented as of this encounter Care Teams Computer Information Science Professor Relationship Specialty Start Date End Date Roverto Arnold MD [address] [place] [facility] [place] [address] PCP - General 12/10/09 documented as of this encounter
--- OUTSIDE RECORDS SUMMARY | 2025-07-06 18:06 | XMS_ITS | Encounter Summary ---
Author Organization [facility] Address [address] [place] [address] Care Team Providers Care Cartoonist Special Effects Name Role Phone Roverto Arnold MD Primary Care Provider [phone] Encounter Details Date Type Department Care Team (Latest Contact Info) Description 07/27/2002 Outpatient Historical [facility] Cardiology- [place] [address] [place] [address] Xin Moe, ANP NO ADDRESS ON FILE CHR ISCHEMIC HRT DIS NEC (Primary Dx); Pure hypercholesterolem Social History Tobacco Use Types Packs/Day Years Used Date Smoking Tobacco: Never Assessed Comments Unknown Sex and Gender Information Value Date Recorded Sex Assigned at Not on file Legal Sex Female 2:56 AM ENVIRONMENTAL FIELD TECHNICIAN Gender Identity Not on file Sexual [...] COVID-19 09/16/2020 09/16/2020 09/16/2020 11:3 5 PM ENVIRONMENTAL FIELD TECHNICIAN COVID-19 09/17/2020 09/17/2020 10/07/2020 8:08 PM ENVIRONMENTAL FIELD TECHNICIAN documented as of this encounter Care Teams Cartoonist Special Effects Relationship Specialty Start Date End Date Roverto Arnold MD [address] [place] [address] PCP - General 12/10/09 documented as of this encounter
--- OUTSIDE RECORDS SUMMARY | 2025-07-06 18:06 | XMS_ITS | Encounter Summary ---
Author Organization [facility] Address [address] Stephen: [place] [address] Care Team Providers Care Waredresser Name Role Phone oRverto Arnold MD Primary Care Provider [phone] Encounter Details Date Type Department Care Team (Late st Contact Info) Description 04/26/2002 Inpatient Historical Scotty Kapadia MD [address] [place] [address] Social History Tobacco Use Types Packs/Day Years Used Date Smoking Tobacco: Never Assessed Comments Unknown Sex and Gender Information Value Date Recorded Sex Assigned at Not on file Legal Sex Female 2:56 AM DIRECTOR OF RESTAURANTS Gender Identity Not on file Sexual Orientation Not on file documented as of this encounter Plan of Treatment Not on file documented as of this encounter Visit Diagnoses Not on filedocumented in this encounter Additional Health Concerns Infection Onset Date Last Indicated Resolved Time R/O COVID-19 09/16/2020 09/16/2020 09/16/2020 11:3 5 PM DIRECTOR OF RESTAURANTS COVID-19 09/17/2020 09/17/2020 10/07/2020 8:0 8 PM DIRECTOR OF RESTAURANTS documented as of this encounter Care Teams Waredresser Relationship Specialty Start Date End Date Roverto Arnold MD [address] [place] [address] PCP - General 12/10/09 documented as of this encounter
--- OUTSIDE RECORDS SUMMARY | 2025-07-06 18:06 | XMS_ITS | Clinical Summary ---
Author Organization [facility] Address [address] [place] [address] Phone Care Team Providers Care Senior Security Architect Name Role Phone Roverto Arnold MD Primary Care Provider [phone] Allergies Active Allergy Reactions Criticality Noted Date [...] (02/19/2021): Added automatically from request for surgery [id number] Unstable angina 12/06/2018 06/10/2019 Abnormal coronary angiogram [...] on file Legal Sex Female 12:39 PM EDUCATIONAL PROGRAM ASSISTANT Gender Identity Not on file Sexual Orientation Not on file Last Filed Vital Signs Vital Sign Reading Time Taken Comments Blood Pressure 105/42 08/09/2023 2:10 PM CDT Pulse 62 08/09/2023 2:10 PM CDT Temperature 36.1 C (97 F) 11/14/2022 7:53 AM EDUCATIONAL PROGRAM ASSISTANT Respiratory Rate 18 08/09/2023 2:10 PM CDT [...] years Discontinued Medical Devices Implanted Type Area Jig Operator Device Identifier Shelf Expiration Date Model / Serial / Lot Sealant Progel Pleural 4ml [id number] - [id number] Implanted:Qt y: 1 on 02/20/2013 by Fabio Islas MD Biological N/A: Chest CR BARD- DAVOL INC 09/22/2014 [id number] / / [id number] Sealant Mynx Veterinary Inspector 6-7fr [id number] - [id number] Implanted: (Quantity not on file) Closure Device Right: Groin ACCESS CLOSURE 01/22/2022 [id number] / / [id number] Closure Perclose Proglide 31123 - [id number] Implanted:Qt y: 1 on 02/05/2021 Closure Device Right: Groin DUDLEY- VASC DEVICE 10/24/2022 [id number] / / [id number] [place] Ptfe Thck 1.6mmx2.5x10 .2cm [id number] - [id number] Implanted:Qt y: 1 on 02/20/2013 by Fabio Islas MD Graft N/A: Chest CR BARD- GUILLERMO VASC INC 08/22/2017 [id number] / / [id number] [place] Ptfe Thck 1.6mmx2.5x2. 5cm 823124 - [id number] Implanted:Qt y: 1 on 02/20/2013 Graft CR BARD- GUILLERMO VASC INC 12/22/2017 [id number] / / [id number] Sealant Floseal W/ Adptr 10ml [id number] - [id number] Implanted:Qt y: 1 on 02/20/2013 by Fabio Islas MD Sealant N/A: Chest LOPES- BIOSCIENCE 02/20/2014 [id number] / / [id number] Sealant Floseal W/ Adptr 10ml [id number] - [id number] Implanted:Qt y: 1 on 02/20/2013 by Niranjan Reilly MD Sealant LOPES- BIOSCIENCE 04/23/2014 [id number] / / [id number] Promus Premier 2.25x12 Implanted: (Quantity not on file) Stent Stent Synergy Mr 4.0x28mm Drug Elut [id number] - [id number] Implanted: (Quantity not on file) Stent Right: Coronary BOSTON SCI MAULIK 09/12/2021 [id number] / / [id number] Stent Synergy Mr 4.0x12mm Drug Elut [id number] - [id number] Implanted:Qt y: 1 on 02/05/2021 by Bird Hernandez MD Stent Right: Coronary BOSTON SCI MAULIK 08/27/2022 [id number] / / [id number] Stent Synergy Mr 4.0x8mm Drug Elut [id number] - [id number] Implanted:Qt y: 1 on 02/05/2021 by Bird Hernandez MD Stent Left: Coronary BOSTON SCI MAULIK 08/05/2022 [id number] / / [id number] Stent Synergy Mr 2.5x16mm Drug Elut [id number] - [id number] Implanted:Qt y: 1 on 02/05/2021 by Bird Hernandez MD Stent Left: Coronary BOSTON SCI MAULIK 09/11/2022 [id number] / / [id number] Marker Graft 1001-83 - [id number] Implanted:Qt y: 1 on 02/20/2013 by Fabio Islas MD N/A: Chest ROMAN INT 05/22/2016 1001-83 / / [id number] Explanted Type Area Jig Operator Device Identifier Shelf Expiration Date Model / Serial / Lot Stent Graftmaster 4.5x19 Rx [id number] - [id number] Implanted:Qty: 1 Explanted:Qty: 1 on 04/26/2020 Stent Right: Coronary DUDLEY- VASC DEVICE 02/21/2021 [id number] / [id number] Description:inserted and rem chayo undeployed and intact [...] Chavis MD - 08/09/2023 1:56 PM CDT [facility] GI Patient Name: Yadira Evans [...] Scope Out: 1:52:34 PM [address] [place], [place] Chavis MD GI PROCEDURE ORDERA [...] clinical management available online at [email or web address] Enter Burpple for Select DXA and the left Femoral [...] clinical management available online at [email or web address] Enter Burpple for Select DXA and the left Femoral Neck BMD value. Marie Askew NP DIAGNOSTIC IMAGING ORDERA BLES Final Result * (ABNORMAL) LIPID PANEL (02/04/2021 8:33 AM CDT) [facility] CHOLESTEROL 231(H) <200 mg/dL 02/04/2021 9:30 PM CDT [facility] TRIGLYCERIDE 493(H) <150 mg/dL 02/04/2021 9:30 PM CDT [facility] HDL 40 40 - 59 mg/dL 02/04/2021 9:30 PM CDT [facility] LDL CALCULATED ^ 02/04/2021 9:30 PM CDT [facility] Comment:Calculated LDL is no t accurate when the Triglyceride value exceeds 400. NON-HDL CHOLESTEROL 191(H) <130 mg/dL 02/04/2021 9:30 PM CDT [facility] Blood Venipuncture / Unknown 02/04/2021 8:33 AM CDT 02/04/2021 8:14 PM CDT Narrative [facility] - 02/04/2021 [...] Annamaria Lanza NP CHEMISTRY ORDERABLES Final Result [facility] CLIA# [id number] [address] [place] [address] * HEMOGLOBIN A1C (05/10/2019) ABSTRACTED HGB A1C [...] Recently Relevant to Health Maintenance Insurance MEDICAID [facility] DUAL COMPLETE PPO [facility] [id number] * Guarantor: YADIRA EVANS Account Type Relation to Patient Date of Phone Billing Address Personal/Family [address] [place] [address] RX INFOCROSSING Medicaid RX [facility] Medicare Part D Advance Directives For more information, please contact: [phone] * Full Code (Latest Code Status on [...] 9:42 PM 11/13/2022 11:21 AM Care Teams Senior Security Architect Relationship Specialty Start Date End Date Roverto Arnold MD [facility] [place] [address] PCP - General 12/10/09
--- OUTSIDE RECORDS SUMMARY | 2025-07-06 18:06 | XMS_ITS | Encounter Summary ---
Author Organization [facility] Address [address] [place] [address] Care Team Providers Care Pulp Refiner Operator Name Role Phone Roverto Arnold MD Primary Care Provider [phone] Encounter Details Date Type Department Care Team (Latest Contact Info) Description 01/30/2003 Outpatient Historical [facility] Imaging Services [address] [place] [address] Le Carmichael, DO [address] [place] [address] CAROTID ART OCCL-NO INFARCT (Primary Dx) Social History Tobacco Use Types Packs/Day Years Used Date Smoking Tobacco: Never Assessed Comments Unknown Sex and Gender Information Value Date Recorded Sex Assigned at Not on file Legal Sex Female 2:56 AM MICROBIOLOGY LAB ASSISTANT Gender Identity Not on file Sexual [...] COVID-19 09/16/2020 09/16/2020 09/16/2020 11:3 5 PM MICROBIOLOGY LAB ASSISTANT COVID-19 09/17/2020 09/17/2020 10/07/2020 8:08 PM MICROBIOLOGY LAB ASSISTANT documented as of this encounter Care Teams Pulp Refiner Operator Relationship Specialty Start Date End Date Roverto Arnold MD [address] [place] [address] PCP - General 12/10/09 documented as of this encounter
--- OUTSIDE RECORDS SUMMARY | 2025-07-06 18:06 | XMS_ITS | Encounter Summary ---
Author Organization [facility] Address [address] [place] [address] Care Team Providers Care Radar Technician Name Role Phone Roverto Arnold MD Primary Care Provider [phone] Encounter Details Date Type Department Care Team (Latest Contact Info) Description 12/20/[address] [facility] Cardiology- [place] [address] [place] [address] Charli Barahona MD NO ADDRESS ON FILE Other and unspecified angina pectoris (Primary Dx); Other specified forms of chronic ischemic heart disease; Mixed hyperlipidemia Social History Tobacco Use Types Packs/Day Years Used Date Smoking Tobacco: Never Assessed Comments Unknown Sex and Gender Information Value Date Recorded Sex Assigned at Not on file Legal Sex Female 2:56 AM BANQUET CAPTAIN Gender Identity Not on file Sexual Orientation [...] COVID-19 09/16/2020 09/16/2020 09/16/2020 11:3 5 PM BANQUET CAPTAIN COVID-19 09/17/2020 09/17/2020 10/07/2020 8:08 PM BANQUET CAPTAIN documented as of this encounter Care Teams Radar Technician Relationship Specialty Start Date End Date Roverto Arnold MD [address] [place] [address] PCP - General 12/10/09 documented as of this encounter
--- OUTSIDE RECORDS SUMMARY | 2025-07-06 18:06 | XMS_ITS | Encounter Summary ---
Author Organization [facility] Address [address] [place] [address] Care Team Providers Care Leather Lacer Name Role Phone Roverto Arnold MD Primary Care Provider [phone] Encounter Details Date Type Department Care Team (Late st Contact Info) Description 05/25/[address] [facility] Breast [place] [address] [place] [address] Bird Davis MD [address] [place] [address] Visit for screening mammogram (Primary [...] on file Legal Sex Female 2:56 AM WIRE PHOTO OPERATOR NEWS Gender Identity Not on file Sexual Orientation Not on file Occupation Industry Job Start Date Job End Date Not on file Not on file Not on file Not on file documented as of this encounter Plan of Treatment Not on file documented as of this encounter Results * MAMMO PRIOR STUDY (11/30/2006 6:30 AM WIRE PHOTO OPERATOR NEWS) Narrative 05/25/2016 6:27 AM CDT This exam [...] COVID-19 09/16/2020 09/16/2020 09/16/2020 11:3 5 PM WIRE PHOTO OPERATOR NEWS COVID-19 09/17/2020 09/17/2020 10/07/2020 8:08 PM WIRE PHOTO OPERATOR NEWS documented as of this encounter Care Teams Leather Lacer Relationship Specialty Start Date End Date Roverto Arnold MD [address] [place] [address] PCP - General 12/10/09 documented as of this encounter
--- OUTSIDE RECORDS SUMMARY | 2025-07-06 18:06 | XMS_ITS | Encounter Summary ---
Author Organization [facility] Address [address] [place] [address] Phone Care Team Providers Care Oracle Hrms Consultant Name Role Phone Marie Askew MD Primary Care Provider [phone] Encounter Details Date Type Department Care Team ([facility] Contact Info) Description 09/01/2019 Orders Only [facility] [address] [place] [address] Jana Melvin NP [address] [facility] [employer] [address] Chronic kidney disease stage 3 [...] Upcoming Encounters Date Type Department Care Team ([facility] Contact Info) Description 11/27/2025 2:50 PM ELECTRIC REFRIGERATOR PREPARER Office Visit [facility] [address] [place] [address] Aaron Ugarte MD [address] [facility] [address] [place] [address] documented as of this encounter Procedures Procedure Name Priority Date/Time Associated Diagnosis Comments URINE ALBUMIN / CREATININE RATIO Routine 08/28/2019 3:49 AM ELECTRIC REFRIGERATOR PREPARER Chronic kidney disease stage 3 (HCC) CBC Routine 08/28/2019 3:49 AM ELECTRIC REFRIGERATOR PREPARER Chronic kidney disease stage 3 (HCC) PTH, INTACT Routine 08/28/2019 3:24 AM ELECTRIC REFRIGERATOR PREPARER Chronic kidney disease stage 3 (HCC) documented in this encounter Results * Urine albumin / creatinine ratio (08/28/2019 3:49 AM ELECTRIC REFRIGERATOR PREPARER) Creatinine, Urine 197 mg/dL Protein/Creatin ine Ratio 24HR Urine 0.183 mg/mg Protein, Urine 36 Urine specimen (specimen) Urine specimen obtained by clean catch procedure / Unknown 08/28/2019 3:49 AM ELECTRIC REFRIGERATOR PREPARER Ellie Basurto MA - 09/04/2019 8:49 AM ELECTRIC REFRIGERATOR PREPARER [facility] [place] [address] [address] [id number] Hog Cooler: Mick Reynolds DO MPH CLIA: [id number] us Jana Melvin TRACER BULLET CHARGING MACHINE OPERATOR LAB URINE ORDERABLES Jessica l Result * CBC (08/28/2019 3:49 AM ELECTRIC REFRIGERATOR PREPARER) WBC 5.4 K/uL Red Blood Cell Count 4.79 Hemoglobin 14.0 g/dL Hematocrit 41.1 % MCV 85.8 MCH 29.2 MCHC 34.1 RDW 13.0 Platelet Count 248 MPV 11.2 Absolute Neutrophils 3,580 Absolute Lymphocytes 1,123 Absolute Monocytes 524 Absolute Eosinophils 140 Absolute Basophils 32 Neutrophils 66.3 K/uL Lymphocytes 20.8 Monocytes 9.7 Eosinophils 2.6 Basophils 0.6 Blood specimen (specimen) Venous blood / Unknown 08/28/2019 3:49 AM ELECTRIC REFRIGERATOR PREPARER Ellie Basurto MA - 09/04/2019 8:52 AM ELECTRIC REFRIGERATOR PREPARER [facility] [place] [address] [address] [employer] [facility] [address] Hog Cooler: Mick Reynolds DO MPH CLIA: [id number] us Jana Melvin TRACER BULLET CHARGING MACHINE OPERATOR LAB BLOOD ORDERABLES Jessica l Result * PTH, intact (08/28/2019 3:24 AM ELECTRIC REFRIGERATOR PREPARER) Parathyroid Hormone, Intact 35 pg/mL Blood specimen (specimen) Venous blood / Unknown 08/28/2019 3:24 AM ELECTRIC REFRIGERATOR PREPARER Narrative Ellie Brooks MA - 09/04/2019 8:48 AM ELECTRIC REFRIGERATOR PREPARER [facility] [place] [address] [facility] [address] Hog Cooler: Mick Reynolds DO MPH CLIA: [id number] us Jana Melvin TRACER BULLET CHARGING MACHINE OPERATOR LAB BLOOD ORDERABLES Jessica l Result documented in this encounter Visit Diagnoses Diagnosis Chronic kidney disease stage 3 (HCC) documented in this encounter Care Teams Oracle Hrms Consultant Relationship Specialty Start Date End Date Marie Askew MD [address] [place] [address] PCP - General Nurse Practitioner 03/05/22 documented as of this encounter
--- OUTSIDE RECORDS SUMMARY | 2025-07-06 18:06 | XMS_ITS | Encounter Summary ---
Author Organization [facility] Address [address] [place] [address] Care Team Providers Care Tracer Powder Blender Name Role Phone Roverto Arnold MD Primary Care Provider [phone] Encounter Details Date Type Department Care Team (Latest Contact Info) Description 01/26/2002 Outpatient Historical [facility] Cardiology- [place] [address] [place] [address] Charli Barahona MD NO ADDRESS ON FILE ANGINA PECTORIS NEC/NOS (Primary Dx); CHR ISCHEMIC HRT DIS NEC; Pure hypercholesterolem Social History Tobacco Use Types Packs/Day Years Used Date Smoking Tobacco: Never Assessed Comments Unknown Sex and Gender Information Value Date Recorded Sex Assigned at Not on file Legal Sex Female 2:56 AM PROPERTY ACCOUNTANT Gender Identity Not on file Sexual Orientation [...] COVID-19 09/16/2020 09/16/2020 09/16/2020 11:3 5 PM PROPERTY ACCOUNTANT COVID-19 09/17/2020 09/17/2020 10/07/2020 8:08 PM PROPERTY ACCOUNTANT documented as of this encounter Care Teams Tracer Powder Blender Relationship Specialty Start Date End Date Roverto Arnold MD [address] [place] [address] PCP - General 12/10/09 documented as of this encounter
--- OUTSIDE RECORDS SUMMARY | 2025-07-06 18:06 | XMS_ITS | Encounter Summary ---
Author Organization [facility] Address [address] [place] [address] Care Team Providers Care Programmer Developer Name Role Phone Roverto Arnold MD Primary Care Provider [phone] Encounter Details Date Type Department Care Team (Latest Contact Info) Description 06/01/2001 Outpatient Historical [facility] Breast [place] [address] [facility] [address] [place] [address] Natasha Avelar MD NO ADDRESS ON FILE Other screening mammogram (Primary Dx) Social History Tobacco Use Types Packs/Day Years Used Date Smoking Tobacco: Never Assessed Comments Unknown Sex and Gender Information Value Date Recorded Sex Assigned at Not on file Legal Sex Female 2:56 AM TUBE ROLLER Gender Identity Not on file Sexual Orientation Not on file documented as of this encounter Plan of Treatment Not on file documented as of this encounter Visit Diagnoses Diagnosis Other screening mammogram- Primary documented in this encounter Additional Health Concerns Infection Onset Date Last Indicated Resolved Time R/O COVID-19 09/16/2020 09/16/2020 09/16/2020 11:3 5 PM TUBE ROLLER COVID-19 09/17/2020 09/17/2020 10/07/2020 8:08 PM TUBE ROLLER documented as of this encounter Care Teams Programmer Developer Relationship Specialty Start Date End Date Roverto Arnold MD [address] [place] [address] PCP - General 12/10/09 documented as of this encounter
--- OUTSIDE RECORDS SUMMARY | 2025-07-06 18:06 | XMS_ITS | Encounter Summary ---
Author Organization [facility] Address [address] [place] [address] Care Team Providers Care Rug Cutter Helper Name Role Phone Roverto Arnold MD Primary Care Provider Encounter Details Date Type Department Care Team (Late st Contact Info) Description 02/23/2003 Emergency [facility] Emergency Department [address] [place] [address] Roverto Palacios DO NO ADDRESS ON FILE ACUTE LARYNGOTRACH NO OBSTR (Primary Dx) Social History Tobacco Use Types Packs/Day Years Used Date Smoking Tobacco: Never Assessed Comments Unknown Sex and Gender Information Value Date Recorded Sex Assigned at Not on file Legal Sex Female 2:56 AM CEMENT BASED MATERIALS PUMP TENDER Gender Identity Not on file Sexual Orientation Not on file documented as of this encounter Plan of Treatment Not on file documented as of this encounter Visit Diagnoses Diagnosis Acute laryngotracheitis without mention of obstruction- Primary documented in this encounter Additional Health Concerns Infection Onset Date Last Indicated Resolved Time R/O COVID-19 09/16/2020 09/16/2020 09/16/2020 11:3 5 PM CEMENT BASED MATERIALS PUMP TENDER COVID-19 09/17/2020 09/17/2020 10/07/2020 8:08 PM CEMENT BASED MATERIALS PUMP TENDER documented as of this encounter Care Teams Rug Cutter Helper Relationship Specialty Start Date End Date Roverto Arnold MD [address] [place] [address] PCP - General 12/10/09 documented as of this encounter
--- OUTSIDE RECORDS SUMMARY | 2025-07-06 18:06 | XMS_ITS | Encounter Summary ---
Author Organization [facility] Address [address] [place] [address] Phone Care Team Providers Care Upper Cutter Machine Name Role Phone Marie Askew MD Primary Care Provider [phone] Encounter Details Date Type Department Care Team ([facility] Contact Info) Description 02/11/2019 Orders Only [facility] [address] [facility] [address] [place] [address] Aaron Ugarte MD [address] [place] [address] Chronic kidney disease, not otherwise [...] Upcoming Encounters Date Type Department Care Team ([facility] Contact Info) Description 11/27/2025 2:50 PM BANK BOSS Office Visit [facility] [address] [place], [place] [address] Aaron Ugarte MD [address] [place] [address] documented as of this encounter [...] [facility] - 03/01/2019 7:57 AM CDT PRIVATE INQUIRY AGENT labs [facility] [place] [address] [facility] [place] [address] Environmental Field Professional: Mick Reynolds DO MPH CLIA: [id number] us Jana Melvin HEAD OF PRECISION TARGETING LAB BLOOD ORDERABLES Jessica story Result [facility] documented in this encounter Visit Diagnoses Diagnosis Chronic kidney disease, not otherwise specified documented in this encounter Care Teams Upper Cutter Machine Relationship Specialty Start Date End Date Marie Askew MD [address] [place] [address] [place] [address] PCP - General Nurse Practitioner 03/05/22 documented as of this encounter
--- OUTSIDE RECORDS SUMMARY | 2025-07-06 18:06 | XMS_ITS | Encounter Summary ---
Author Organization [facility] Address [address] [place] [address] Care Team Providers Care Radiology Clerk Name Role Phone Roverto Arnold MD Primary Care Provider [phone] Encounter Details Date Type Department Care Team (Latest Contact Info) Description 11/03/1999 Outpatient Historical [facility] Cardiology- [place] [address] [place] [address] Charli Barahona MD NO ADDRESS ON FILE Other and unspecified angina pectoris (Primary Dx); Other specified forms of chronic ischemic heart disease; Mixed hyperlipidemia; Benign hypertension Social History Tobacco Use Types Packs/Day Years Used Date Smoking Tobacco: Never Assessed Comments Unknown Sex and Gender Information Value Date Recorded Sex Assigned at Not on file Legal Sex Female 2:56 AM TRAFFIC SIGN ERECTION SUPERVISOR Gender Identity Not on file Sexual [...] COVID-19 09/16/2020 09/16/2020 09/16/2020 11:3 5 PM TRAFFIC SIGN ERECTION SUPERVISOR COVID-19 09/17/2020 09/17/2020 10/07/2020 8:08 PM TRAFFIC SIGN ERECTION SUPERVISOR documented as of this encounter Care Teams Radiology Clerk Relationship Specialty Start Date End Date Roverto Arnold MD [address] [place] [address] PCP - General 12/10/09 documented as of this encounter
--- OUTSIDE RECORDS SUMMARY | 2025-07-06 18:06 | XMS_ITS | Encounter Summary ---
Author Organization [facility] Address [address] [place] [address] Care Team Providers Care Lime Sludge Mixer Name Role Phone Roverto Arnold MD Primary Care Provider [phone] Encounter Details Date Type Department Care Team (Latest Contact Info) Description 07/23/1998 Outpatient Historical [facility] Family Medicine Ramonita [facility] [address] [facility] [address] [place] [address] Colten Mayer MD NO ADDRESS ON FILE Other and unspecified hyperlipidemia (Primary Dx) Social History Tobacco Use Types Packs/Day Years Used Date Smoking Tobacco: Never Assessed Comments Unknown Sex and Gender Information Value Date Recorded Sex Assigned at Not on file Legal Sex Female 2:56 AM LOG CUT OFF SAWYER Gender Identity Not on file Sexual Orientation Not on file documented as of this encounter Plan of Treatment Not on file documented as of this encounter Visit Diagnoses Diagnosis Other and unspecified hyperlipidemia- Primary documented in this encounter Additional Health Concerns Infection Onset Date Last Indicated Resolved Time R/O COVID-19 09/16/2020 09/16/2020 09/16/2020 11:3 5 PM LOG CUT OFF SAWYER COVID-19 09/17/2020 09/17/2020 10/07/2020 8:08 PM LOG CUT OFF SAWYER documented as of this encounter Care Teams Lime Sludge Mixer Relationship Specialty Start Date End Date Roverto Arnold MD [address] [place] [address] PCP - General 12/10/09 documented as of this encounter
--- OUTSIDE RECORDS SUMMARY | 2025-07-06 18:06 | XMS_ITS | Encounter Summary ---
Author Organization [facility] Address [address] [place] [address] Care Team Providers Care Vice Chairman Name Role Phone Roverto Arnold MD Primary Care Provider [phone] Encounter Details Date Type Department Care Team (Latest Contact Info) Description 01/30/2003 Outpatient Historical [facility] General and Trauma Surgery-[address] [place] [address] CAROTID ART OCCL-NO INFARCT (Primary Dx) Social History Tobacco Use Types Packs/Day Years Used Date Smoking Tobacco: Never Assessed Comments Unknown Sex and Gender Information Value Date Recorded Sex Assigned at Not on file Legal Sex Female 2:56 AM NAIL ASSEMBLY MACHINE OPERATOR Gender Identity Not on file [...] COVID-19 09/16/2020 09/16/2020 09/16/2020 11:3 5 PM NAIL ASSEMBLY MACHINE OPERATOR COVID-19 09/17/2020 09/17/2020 10/07/2020 8:08 PM NAIL ASSEMBLY MACHINE OPERATOR documented as of this encounter Care Teams Vice Chairman Relationship Specialty Start Date End Date Roverto Arnold MD [address] [place] [address] PCP - General 12/10/09 documented as of this encounter
--- OUTSIDE RECORDS SUMMARY | 2025-07-06 18:06 | XMS_ITS | Encounter Summary ---
Author Organization [facility] Address [address] [place] [address] Care Team Providers Care Rehab Manager Name Role Phone Roverto Arnold MD Primary Care Provider [phone] Encounter Details Date Type Department Care Team (Latest Contact Info) Description 01/16/2002 Outpatient Historical [facility] [address] [place] [address] Yuan Plata MD NO ADDRESS ON FILE OTHER UNSPEC SLEEP APNEA (Primary Dx) Social History Tobacco Use Types Packs/Day Years Used Date Smoking Tobacco: Never Assessed Comments Unknown Sex and Gender Information Value Date Recorded Sex Assigned at Not on file Legal Sex Female 2:56 AM APARTMENT RENTAL CLERK Gender Identity Not on file Sexual Orientation Not on file documented as of this encounter Plan of Treatment Not on file documented as of this encounter Visit Diagnoses Diagnosis Unspecified sleep apnea- Primary documented in this encounter Additional Health Concerns Infection Onset Date Last Indicated Resolved Time R/O COVID-19 09/16/2020 09/16/2020 09/16/2020 11:3 5 PM APARTMENT RENTAL CLERK COVID-19 09/17/2020 09/17/2020 10/07/2020 8:08 PM APARTMENT RENTAL CLERK documented as of this encounter Care Teams Rehab Manager Relationship Specialty Start Date End Date Roverto Arnold MD [address] [place], [place] [address] PCP - General 12/10/09 documented as of this encounter
--- OUTSIDE RECORDS SUMMARY | 2025-07-06 18:06 | XMS_ITS | Encounter Summary ---
Author Organization [facility] Address [address] [place] [address] Care Team Providers Care Hand Crown Pouncer Name Role Phone Roverto Arnold MD Primary Care Provider [phone] Encounter Details Date Type Department Care Team (Late st Contact Info) Description 01/17/2002 Outpatient Historical [facility] [address] [place] [address] Social History Tobacco Use Types Packs/Day Years Used Date Smoking Tobacco: Never Assessed Comments Unknown Sex and Gender Information Value Date Recorded Sex Assigned at Not on file Legal Sex Female 2:56 AM VINEYARD WORKER Gender Identity Not on file Sexual Orientation Not on file documented as of this encounter Plan of Treatment Not on file documented as of this encounter Visit Diagnoses Not on filedocumented in this encounter Additional Health Concerns Infection Onset Date Last Indicated Resolved Time R/O COVID-19 09/16/2020 09/16/2020 09/16/2020 11:3 5 PM VINEYARD WORKER COVID-19 09/17/2020 09/17/2020 10/07/2020 8:08 PM VINEYARD WORKER documented as of this encounter Care Teams Hand Crown Pouncer Relationship Specialty Start Date End Date Roverto Arnold MD [address] [place], [place] [address] PCP - General 12/10/09 documented as of this encounter
--- OUTSIDE RECORDS SUMMARY | 2025-07-06 18:06 | XMS_ITS | Encounter Summary ---
Author Organization [facility] Address [address] [place] [address] Care Team Providers Care Shop Cooper Name Role Phone Roverto Arnold MD Primary Care Provider [phone] Encounter Details Date Type Department Care Team (Latest Contact Info) Description 05/18/2002 Outpatient Historical [facility] [place] [address] Xander Askew MD [address] [facility] [place] [address] [place] [address] ESOPHAGEAL REFLUX (Primary Dx) Social History Tobacco Use Types Packs/Day Years Used Date Smoking Tobacco: Never Assessed Comments Unknown Sex and Gender Information Value Date Recorded Sex Assigned at Not on file Legal Sex Female 2:56 AM STORAGE RECEIPT POSTER Gender Identity Not on file Sexual Orientation Not on file documented as of this encounter Plan of Treatment Not on file documented as of this encounter Visit Diagnoses Diagnosis Esophageal reflux- Primary documented in this encounter Additional Health Concerns Infection Onset Date Last Indicated Resolved Time R/O COVID-19 09/16/2020 09/16/2020 09/16/2020 11:3 5 PM STORAGE RECEIPT POSTER COVID-19 09/17/2020 09/17/2020 10/07/2020 8:08 PM STORAGE RECEIPT POSTER documented as of this encounter Care Teams Shop Cooper Relationship Specialty Start Date End Date Roverto Arnold MD [address] [facility] [place] [address] PCP - General 12/10/09 documented as of this encounter
--- OUTSIDE RECORDS SUMMARY | 2025-07-06 18:06 | XMS_ITS | Clinical Summary ---
Author Organization [facility] Address [address] [place] [address] Care Team Providers Care Installation Superintendent Name Role Phone Marie Askew MD Primary Care Provider [phone] Allergies Active Allergy Reactions Criticality Noted Date [...] 500 mg by mouth twice a day 9 Active pantoprazole (PROTONIX) 40 MG EC tablet Take 40 mg by mouth daily Active metoprolol tartrate (LOPRESSOR) 25 MG tablet Take 12.5 mg by mouth twice a day 9 Active levothyroxine (SYNTHROID, LEVOTHROID) 50 MCG tablet Take 50 mcg by mouth 1 (one) time each day Active fenofibrate (TRICOR) 145 MG tablet Take 1 tablet by mouth 1 (one) time each day 8 Active clopidogrel (PLAVIX) 75 MG tablet Take 1 tablet by mouth 1 (one) time each day Active albuterol HFA (PROVENTIL HFA;VENTOLIN HFA) 108 (90 Base) MCG/ACT inhaler Inhale 2 puffs 4 (four) times a day As needed Active aspirin (ST MICHELET) 81 MG EC tablet Take 81 mg by mouth daily 5 Active DILTIAZEM CD 120 MG 24 hr capsule Take 1 capsule (120 mg total) by mouth 1 (one) time each day 1 capsule 9 Active UNABLE TO FIND if needed oxygen Active furosemide (LASIX) 20 MG tablet Take 1 tablet (20 mg total) by mouth 1 (one) time each day if needed (for swelling) 30 tablet 5 0 Active potassium chloride 10 MEQ CR tabletIndicatio ns:Stage 3b chronic kidney disease (HCC) TAKE 1 TABLET BY MOUTH 1 TIME EACH DAY IF NEEDED(FOR DIURETICS) 30 tablet 5 2 Active cetirizine (ZyrTEC) 10 MG tablet Take 10 mg by mouth 1 (one) time each day if needed 2 Active Farxiga 10 MG tablet Take 10 mg by mouth 1 (one) time each day 2 Active temazepam (RESTORIL) 15 MG capsule Take 1 capsule by mouth at night if needed 2 Active docusate sodium (COLACE) 100 MG capsule Take 100 mg by mouth every night PRN Active fluconazole (DIFLUCAN) 100 MG tablet Take 100 mg by mouth every 7 (seven) days Active LORazepam (ATIVAN) 0.5 MG tablet TAKE 1 TABLET BY MOUTH EVERY 8 HOURS NEEDED FOR ANXIETY NEEDED AGITATION 3 Active nitroglycerin (NITROSTAT) 0.4 MG SL tablet if needed 3 Active ketoconazole (NIZORAL) 2 % cream APPLY TO BOTH CORNERS OF MOUTH TWICE DAILY NEEDED 5 Active nystatin (MYCOSTATIN) 320524 UNIT/ML suspension 5 Active pravastatin (PRAVACHOL) 20 MG tablet Take 20 mg by mouth 1 (one) time each day 5 Active isosorbide dinitrate (ISORDIL) 30 MG tablet Take 30 mg by mouth at bed time 5 Active Active Problems Problem Noted Date Diagnosed [...] Description 05/30/2025 4:00 PM CDT Office Visit [facility] [address] [place] [address] Jana Melvin NP Stage 3b chronic kidney disease (HCC) (Primary Dx); Type 2 diabetes mellitus with diabetic chronic kidney disease (HCC); 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) 05/21/2025 Documentation Only [facility] [address] [place] [address] Isabella Rojas MA 05/14/2025 Telephone [facility] [address] [place] [address] Aaron Ugarte MD 05/14/2025 Documentation Only [facility] [address] [place] [address] Desirae Weiner from Last 3 Months Immunizations [...] st Contact Info) Description 11/27/2025 2:50 PM THERMAL INTELLIGENCE ANALYST Office Visit [facility] [address] [place], [place] [address] Aaron Ugarte MD [address] [facility] [address] [place] [address] Health Maintenance Due Date Last Done Comments [...] 05/21/2025 Narrative PRINT/EXTERNAL (NON-INTERFACED LABS) - 05/21/2025 [employer] [address] [place] [address] Jana Melvin PARTNER MARKETING MANAGER LAB URINE ORDERABLES Jessica sotry Result PRINT/EXTERNAL (NON-INTERFACED LABS) * CBC (05/21/2025) [...] 05/21/2025 Narrative PRINT/EXTERNAL (NON-INTERFACED LABS) - 05/21/2025 [employer] [address] [place] [address] Jana Melvin PARTNER MARKETING MANAGER LAB BLOOD ORDERABLES Jessica l Result PRINT/EXTERNAL (NON-INTERFACED LABS) * PTH, intact (05/21/2025) Parathyroid Hormone, Intact 41 pg/mL PRINT/REFINED SYRUP OPERATOR AL (NON-INTERFACE D LABS) Blood Venous blood / Unknown 05/21/2025 Narrative PRINT/EXTERNAL (NON-INTERFACED LABS) - 05/21/[address] [address] Jana Melvin PARTNER MARKETING MANAGER LAB BLOOD ORDERABLES Jessica l Result PRINT/EXTERNAL (NON-INTERFACED LABS) * Renal function panel [...] PRIN T/EXTERNAL (NON-INTERFACE D LABS) eGFR Non-Afr Hungarian 35 PRINT/EXTERNAL (NON-INTERFACE D LABS) Blood Venous blood / Unknown 05/21/2025 Narrative PRINT/EXTERNAL (NON-INTERFACED LABS) - 05/21/[address] [address] Jana Melvin PARTNER MARKETING MANAGER LAB BLOOD ORDERABLES Jessica l Result PRINT/EXTERNAL (NON-INTERFACED LABS) * Hemoglobin A1C (08/30/2023) Hemoglobin A1C 7.0 Blood specimen (specimen) Venous blood / Unknown 08/30/2023 Narrative Isabella Rojas MA - 08/30/2023 [facility] External Provider LAB BLOOD ORDERABLES Final Result from Last 3 Months or Most Recently Relevant to Health Maintenance Insurance Medicaid [place] ([id number]) Dual Complete Choice [facility] [place] Care Teams Installation Superintendent Relationship Specialty Start Date End Date Marie Askew MD [address] [place] [address] PCP - General Nurse Practitioner 03/05/22
--- OUTSIDE RECORDS SUMMARY | 2025-07-06 18:06 | XMS_ITS | Encounter Summary ---
Author Organization [facility] Address [address] [place] [address] Care Team Providers Care Radiologic Technology Instructor Name Role Phone Roverto Arnold MD Primary Care Provider [phone] Encounter Details Date Type Department Care Team (Latest Contact Info) Description 08/20/2003 Outpatient Historical [facility] [address] [place] [address] Jose G Talley MD [address] [place] [address] DIABETES UNCOMPL ADULT-UNCONTRLLED (Primary Dx) Social History Tobacco Use Types Packs/Day Years Used Date Smoking Tobacco: Never Assessed Comments Unknown Sex and Gender Information Value Date Recorded Sex Assigned at Not on file Legal Sex Female 2:56 AM ARTIFICIAL TEETH INSPECTOR Gender Identity Not on file Sexual Orientation [...] COVID-19 09/16/2020 09/16/2020 09/16/2020 11:3 5 PM ARTIFICIAL TEETH INSPECTOR COVID-19 09/17/2020 09/17/2020 10/07/2020 8:08 PM ARTIFICIAL TEETH INSPECTOR documented as of this encounter Care Teams Radiologic Technology Instructor Relationship Specialty Start Date End Date Roverto Arnold MD [address] [place] [address] PCP - General 12/10/09 documented as of this encounter
--- OUTSIDE RECORDS SUMMARY | 2025-07-06 18:06 | XMS_ITS | Encounter Summary ---
Author Organization [facility] Address [address] [place] [address] Care Team Providers Care Cyber Incident Responder Name Role Phone Roverto Arnold MD Primary Care Provider [phone] Encounter Details Date Type Department Care Team (Latest Contact Info) Description 06/21/[address] [facility] [address] [place] [place] [address] Le Carmichael, DO [address] [place] [address] SCREENING MAMM-MAILG NEOPL-OTHER (Primary Dx) Social History Tobacco Use Types Packs/Day Years Used Date Smoking Tobacco: Never Assessed Comments Unknown Sex and Gender Information Value Date Recorded Sex Assigned at Not on file Legal Sex Female 2:56 AM FOOD SERVICE SUBSTITUTE Gender Identity Not on file Sexual Orientation Not on file documented as of this encounter Plan of Treatment Not on file documented as of this encounter Visit Diagnoses Diagnosis Other screening mammogram- Primary documented in this encounter Additional Health Concerns Infection Onset Date Last Indicated Resolved Time R/O COVID-19 09/16/2020 09/16/2020 09/16/2020 11:3 5 PM FOOD SERVICE SUBSTITUTE COVID-19 09/17/2020 09/17/2020 10/07/2020 8:08 PM FOOD SERVICE SUBSTITUTE documented as of this encounter Care Teams Cyber Incident Responder Relationship Specialty Start Date End Date Roverto Arnold MD [address] [place] [address] PCP - General 12/10/09 documented as of this encounter
--- OUTSIDE RECORDS SUMMARY | 2025-07-06 18:06 | XMS_ITS | Encounter Summary ---
Author Organization [facility] Address [address] [place] [address] Care Team Providers Care Fast Food Attendant Name Role Phone Roverto Arnold MD Primary Care Provider [phone] Encounter Details Date Type Department Care Team (Latest Contact Info) Description 02/19/2003 Outpatient Historical [facility] [address] [place] [address] Markie Ramírez MD NO ADDRESS ON FILE PREOP CARDIOVASC EXAM (Primary Dx) Social History Tobacco Use Types Packs/Day Years Used Date Smoking Tobacco: Never Assessed Comments Unknown Sex and Gender Information Value Date Recorded Sex Assigned at Not on file Legal Sex Female 2:56 AM MANAGER IMPLEMENTATION Gender Identity Not on file Sexual Orientation Not on file documented as of this encounter Plan of Treatment Not on file documented as of this encounter Visit Diagnoses Diagnosis Pre-operative cardiovascular examination- Primary documented in this encounter Additional Health Concerns Infection Onset Date Last Indicated Resolved Time R/O COVID-19 09/16/2020 09/16/2020 09/16/2020 11:3 5 PM MANAGER IMPLEMENTATION COVID-19 09/17/2020 09/17/2020 10/07/2020 8:08 PM MANAGER IMPLEMENTATION documented as of this encounter Care Teams Fast Food Attendant Relationship Specialty Start Date End Date Roverto Arnold MD [address] [place] [address] PCP - General 12/10/09 documented as of this encounter
--- OUTSIDE RECORDS SUMMARY | 2025-07-06 18:06 | XMS_ITS | Encounter Summary ---
Author Organization [facility] Address [address] [place] [address] Care Team Providers Care Felt Coverer Name Role Phone Roverto Arnold MD Primary Care Provider [phone] Encounter Details Date Type Department Care Team (Late st Contact Info) Description 09/01/2011 Ancillary Orders [facility] Orthopedics- [address] [place] [address] Darnell Lerma MD NO ADDRESS [...] on file Legal Sex Female 2:56 AM KEYPUNCH OPERATOR Gender Identity Not on file Sexual Orientation Not on file documented as of this encounter Plan of Treatment Not on file documented as of this encounter Results * XR SHOULDER 2+ VW LEFT (09/01/2011 1:25 PM KEYPUNCH OPERATOR) Anatomical Region Laterality Modality Upper Extremity Computed Radiogr aphy Narrative 09/05/2011 7:05 AM KEYPUNCH OPERATOR Bilateral shoulder internal, external, and Y views [...] COVID-19 09/16/2020 09/16/2020 09/16/2020 11:3 5 PM KEYPUNCH OPERATOR COVID-19 09/17/2020 09/17/2020 10/07/2020 8:08 PM KEYPUNCH OPERATOR documented as of this encounter Care Teams Felt Coverer Relationship Specialty Start Date End Date Roverto Arnold MD [address] [place] [address] PCP - General 12/10/09 documented as of this encounter
--- OUTSIDE RECORDS SUMMARY | 2025-07-06 18:06 | XMS_ITS | Encounter Summary ---
Author Organization [facility] Address [address] [place] [address] Care Team Providers Care Activities Leader Name Role Phone Roverto Arnold MD Primary Care Provider [phone] Encounter Details Date Type Department Care Team (Latest Contact Info) Description 07/28/2001 Outpatient Historical [facility] Cardiology- [place] [address] [place] [address] Charli Barahona MD NO ADDRESS ON FILE Other and unspecified angina pectoris (Primary Dx); Other specified forms of chronic ischemic heart disease; Mixed hyperlipidemia Social History Tobacco Use Types Packs/Day Years Used Date Smoking Tobacco: Never Assessed Comments Unknown Sex and Gender Information Value Date Recorded Sex Assigned at Not on file Legal Sex Female 2:56 AM LATCHER Gender Identity Not on file Sexual Orientation [...] COVID-19 09/16/2020 09/16/2020 09/16/2020 11:3 5 PM LATCHER COVID-19 09/17/2020 09/17/2020 10/07/2020 8:08 PM LATCHER documented as of this encounter Care Teams Activities Leader Relationship Specialty Start Date End Date Rovreto Arnold MD [address] [place] [address] PCP - General 12/10/09 documented as of this encounter
--- OUTSIDE RECORDS SUMMARY | 2025-07-06 18:06 | XMS_ITS | Encounter Summary ---
Author Organization [facility] Address [address]: [place] [address] Care Team Providers Care Instrumentation Tech Name Role Phone Roverto Arnold MD Primary Care Provider [phone] Encounter Details Date Type Department Care Team (Late st Contact Info) Description 02/01/2002 Outpatient Historical Charli Barahona MD NO ADDRESS ON FILE Social History Tobacco Use Types Packs/Day Years Used Date Smoking Tobacco: Never Assessed Comments Unknown Sex and Gender Information Value Date Recorded Sex Assigned at Not on file Legal Sex Female 2:56 AM REAL ESTATE PROFESSOR Gender Identity Not on file Sexual Orientation Not on file documented as of this encounter Plan of Treatment Not on file documented as of this encounter Visit Diagnoses Not on filedocumented in this encounter Additional Health Concerns Infection Onset Date Last Indicated Resolved Time R/O COVID-19 09/16/2020 09/16/2020 09/16/2020 11:3 5 PM REAL ESTATE PROFESSOR COVID-19 09/17/2020 09/17/2020 10/07/2020 8:08 PM REAL ESTATE PROFESSOR documented as of this encounter Care Teams Instrumentation Tech Relationship Specialty Start Date End Date Roverto Arnold MD [address] [facility] [place] [address] PCP - General 12/10/09 documented as of this encounter
--- OUTSIDE RECORDS SUMMARY | 2025-07-06 18:06 | XMS_ITS | Encounter Summary ---
Author Organization [facility] Address [address] [place] [address] Care Team Providers Care Technology Sales Representative Name Role Phone Roverto Arnold MD Primary Care Provider [phone] Encounter Details Date Type Department Care Team (Latest Contact Info) Description 01/01/[address] [facility] Scan [address] [place] [address] Patty Woods, RED LEADER [address] [place] [address] Neck Pain; Low Back Pain Radiating to Both Legs; Dizziness Social History Tobacco Use Types Packs/Day Years Used Date Smoking Tobacco: Never Assessed Comments Unknown Sex and Gender Information Value Date Recorded Sex Assigned at Not on file Legal Sex Female 2:56 AM MACHINE GROUP LEADER Gender Identity Not on file Sexual Orientation [...] multilevel degenerative changes. sdm - uploaded from [employer] - Narrative 01/03/2009 3:40 PM CDT The [...] multilevel degenerative changes. sdm - uploaded from [employer] - Delaney Liu MD CT ORDERABLES Final [...] R/O COVID-09/16/2020 09/16/2020 09/16/2020 11:3 5 PM MACHINE GROUP LEADER COVID-19 09/17/2020 09/17/2020 10/07/2020 8:08 PM MACHINE GROUP LEADER documented as of this encounter Care Teams Technology Sales Representative Relationship Specialty Start Date End Date Roverto Arnold MD [address] [place] [address] PCP - General 12/10/09 documented as of this encounter
--- OUTSIDE RECORDS SUMMARY | 2025-07-06 18:06 | XMS_ITS | Encounter Summary ---
Author Organization [facility] Address [address] [place]: [place] [address] Care Team Providers Care Washer Machine Name Role Phone Roverto Arnold MD Primary [...] on file Legal Sex Female 2:56 AM HAND I TUBE BENDER Gender Identity Not on file Sexual Orientation Not on file documented as of this encounter Plan of Treatment Not on file documented as of this encounter Visit Diagnoses Not on filedocumented in this encounter Additional Health Concerns Infection Onset Date Last Indicated Resolved Time R/O COVID-19 09/16/2020 09/16/2020 09/16/2020 11:3 5 PM HAND I TUBE BENDER COVID-19 09/17/2020 09/17/2020 10/07/2020 8:08 PM HAND I TUBE BENDER documented as of this encounter Care Teams Washer Machine Relationship Specialty Start Date End Date Roverto Arnold MD [address] [place] [address] PCP - General 12/10/09 documented as of this encounter
--- OUTSIDE RECORDS SUMMARY | 2025-07-06 18:06 | XMS_ITS | Encounter Summary ---
Author Organization [facility] Address [address] [place] [address] Care Team Providers Care Automobile Body Repairer Helper Name Role Phone Roverto Arnold MD Primary Care Provider [phone] Encounter Details Date Type Department Care Team (Latest Contact Info) Description 08/06/2003 Outpatient Historical [facility] Cardiovascular Services [address] [place] [address] Le Carmichael, DO [address] [place] [address] CARDIOVAS SYS SYMP NEC (Primary Dx) Social History Tobacco Use Types Packs/Day Years Used Date Smoking Tobacco: Never Assessed Comments Unknown Sex and Gender Information Value Date Recorded Sex Assigned at Not on file Legal Sex Female 2:56 AM SHOT PEENING OPERATOR Gender Identity Not on file Sexual Orientation Not on file documented as of this encounter Plan of Treatment Not on file documented as of this encounter Visit Diagnoses Diagnosis Other symptoms involving cardiovascular system- Primary documented in this encounter Additional Health Concerns Infection Onset Date Last Indicated Resolved Time R/O COVID-19 09/16/2020 09/16/2020 09/16/2020 11:3 5 PM SHOT PEENING OPERATOR COVID-19 09/17/2020 09/17/2020 10/07/2020 8:08 PM SHOT PEENING OPERATOR documented as of this encounter Care Teams Automobile Body Repairer Helper Relationship Specialty Start Date End Date Roverto Arnold MD [address] [facility] [place] [address] PCP - General 12/10/09 documented as of this encounter
--- OUTSIDE RECORDS SUMMARY | 2025-07-06 18:06 | XMS_ITS | Encounter Summary ---
Author Organization [facility] Address [address] [place] [address] Care Team Providers Care Digital Analyst Name Role Phone Roverto Arnold MD Primary Care Provider [phone] Encounter Details Date Type Department Care Team (Latest Contact Info) Description 12/28/2006 Outpatient Historical [facility] Cardiology- [place] [address] [place] [address] Claire-Yoana Sow, ALEX [address] [address] Palpitations (Primary Dx); Other Dyspnea and Respiratory Abnormality; Unspecified Chronic Ischemic Heart Disease; Unspecified Peripheral Vascular Disease Social History Tobacco Use Types Packs/Day Years Used Date Smoking Tobacco: Never Assessed Comments Unknown Sex and Gender Information Value Date Recorded Sex Assigned at Not on file Legal Sex Female 2:56 AM CATTLE INSPECTOR Gender Identity Not on file Sexual [...] COVID-19 09/16/2020 09/16/2020 09/16/2020 11:3 5 PM CATTLE INSPECTOR COVID-19 09/17/2020 09/17/2020 10/07/2020 8:08 PM CATTLE INSPECTOR documented as of this encounter Care Teams Digital Analyst Relationship Specialty Start Date End Date Roverto Arnold MD [address] [place] [address] PCP - General 12/10/09 documented as of this encounter
--- OUTSIDE RECORDS SUMMARY | 2025-07-06 18:06 | XMS_ITS | Encounter Summary ---
Author Organization [facility] Address [address] [place] [address] Care Team Providers Care Joist Setter Name Role Phone Roverto Arnold MD Primary Care Provider [phone] Encounter Details Date Type Department Care Team [...] on file Legal Sex Female 2:56 AM FENCE MAKING MACHINE OPERATOR Gender Identity Not on file [...] COVID-19 09/16/2020 09/16/2020 09/16/2020 11:3 5 PM FENCE MAKING MACHINE OPERATOR COVID-19 09/17/2020 09/17/2020 10/07/2020 8:08 PM FENCE MAKING MACHINE OPERATOR documented as of this encounter Care Teams Joist Setter Relationship Specialty Start Date End Date Roverto Arnold MD [address] [place] [address] PCP - General 12/10/09 documented as of this encounter
--- OUTSIDE RECORDS SUMMARY | 2025-07-06 18:06 | XMS_ITS | Encounter Summary ---
Author Organization [facility] Address [address]: [place] [address] Care Team Providers Care Ice Guard Skating Rink Name Role Phone Roverto Arnold MD Primary Care Provider [phone] Encounter Details Date Type Department Care Team (Latest Contact Info) Description 01/20/2002 Emergency Yuan Mcclain MD [address] [facility] [place] [id number] Social History Tobacco Use Types Packs/Day Years Used Date Smoking Tobacco: Never Assessed Comments Unknown Sex and Gender Information Value Date Recorded Sex Assigned at Not on file Legal Sex Female 2:56 AM CODING TECHNICIAN Gender Identity Not on file Sexual Orientation Not on file documented as of this encounter Plan of Treatment Not on file documented as of this encounter Visit Diagnoses Not on filedocumented in this encounter Additional Health Concerns Infection Onset Date Last Indicated Resolved Time R/O COVID-19 09/16/2020 09/16/2020 09/16/2020 11:3 5 PM CODING TECHNICIAN COVID-19 09/17/2020 09/17/2020 10/07/2020 8:08 PM CODING TECHNICIAN documented as of this encounter Care Teams Ice Guard Skating Rink Relationship Specialty Start Date End Date oRverto Arnold MD [address], [place] [address] PCP - General 2/16/10 documented as of this encounter
--- OUTSIDE RECORDS SUMMARY | 2025-07-06 18:06 | XMS_ITS | Encounter Summary ---
Author Organization [facility] Address [address] [place] [address] Care Team Providers Care Clay Maker Name Role Phone Roverto Arnold MD Primary Care Provider [phone] Encounter Details Date Type Department Care Team (Latest Contact Info) Description 11/30/2006 Outpatient Historical [facility] Breast [place] [address] [facility] [address] [place] [address] Other Screening Mammogram (Primary Dx) Social History Tobacco Use Types Packs/Day Years Used Date Smoking Tobacco: Never Assessed Comments Unknown Sex and Gender Information Value Date Recorded Sex Assigned at Not on file Legal Sex Female 2:56 AM PROJECT SAFETY MANAGER Gender Identity Not on file Sexual Orientation Not on file documented as of this encounter Plan of Treatment Not on file documented as of this encounter Visit Diagnoses Diagnosis Other screening mammogram- Primary documented in this encounter Additional Health Concerns Infection Onset Date Last Indicated Resolved Time R/O COVID-19 09/16/2020 09/16/2020 09/16/2020 11:3 5 PM PROJECT SAFETY MANAGER COVID-19 09/17/2020 09/17/2020 10/07/2020 8:08 PM PROJECT SAFETY MANAGER documented as of this encounter Care Teams Clay Maker Relationship Specialty Start Date End Date Roverto Arnold MD [facility] [address], [place] [address] PCP - General 12/10/09 documented as of this encounter
--- NOTE | 2025-07-06 18:08 | XRR_ITS ---
PROCEDURE INFORMATION: Exam: XR Chest Exam date and time: 07/06/2025 7:40 PM Age: 79 years old Clinical indication: Chest pressure; Prior surgery; Surgery date: 6+ months; Surgery type: Cabg. Gb; C/O chest pain TECHNIQUE: Imaging protocol: Radiologic exam of the chest. Views: 1 view. COMPARISON: CR (CHEST, ) 06/23/2025 11:45 AM FINDINGS: Lungs: Unremarkable. No consolidation. Pleural spaces: Unremarkable. No pleural effusion. No pneumothorax. Heart/Mediastinum: Unremarkable. No cardiomegaly. Bones/joints: Unremarkable. XR/XR chest 1V portable [id number] IMPRESSION: No acute findings.
[2025-07-06 18:47] LABS: Hematocrit 37.6 % (36-47); Hemoglobin 12.00 g/dL (11.27-16.99); Mean Corpuscular HGB Conc 31.9 g/dL (30-55); Mean Corpuscular Hemoglobin 24.0 pg (27-33); Mean Corpuscular Volume 75.2 fl (85-98); Nucleated Red Blood Cells % 0 %; Platelet Count 315 10^3/cmm (157-399); Red Blood Count 5.00 10^6/uL (3.85-5.65); White Blood Count 5.40 10^3/uL (3.29-11.43)
[2025-07-06 19:05] LABS: Troponin(5th) Baseline 31 ng/L (0-10)
[2025-07-06 19:08] LABS: Alanine Aminotransferase 12 U/L (0-33); Albumin Level 4.3 g/dL (3.5-5.2); Alkaline Phosphatase 41 U/L (35-105); Anion Gap 17.0 (5-19); Aspartate Amino Transferase 23 U/L (0-32); Blood Urea Nitrogen 12 mg/dL (8-23); Calcium 9.9 mg/dL (8.5-10.5); Carbon Dioxide 23 mmol/L (22-29); Chloride 100 mmol/L (98-107); Globulin 2.8 g/dL (1.3-4.6); Glucose 119 mg/dL (65-115); Osmolality Calculated 283 mOsm/kg (285-295); Potassium 4.0 mmol/L (3.5-5.1); Sodium 136 mmol/L (136-145); Total Protein 7.1 g/dL (6.6-8.7)
[2025-07-06 19:11] LABS: Creatinine Clr Calc Pharmacy 29.5245
[2025-07-06 19:49] VITALS: BP 184/72; PULSE 69; RESP 18; O2SAT 95
[2025-07-06 20:00] VITALS: BP 186/102; PULSE 75; RESP 16; O2SAT 96
--- NOTE | 2025-07-06 20:08 | ECG_ITS ---
[facility] Date: 2025-07[facility]06 Pat Name: Yadira Cruz Department: Room: Gender: Female Container Finishing Inspector: : 1945 Requested By: Dorothy Barrett Order Number: [id number] Reading MD: FIFI COFFEY Measurements Intervals [place] Rate: 76 P: 63 HI: 168 QRS: 63 QRSD: 97 T: 77 QT: 398 QTc: 450 Interpretive Statements SINUS RHYTHM NONSPECIFIC ST & T-WAVE ABNORMALITY Electronically Signed On 07-06-2025 20:15:39 CDT by FIFI COFFEY [id number]
--- NOTE | 2025-07-06 20:13 | W.ED.CHESTPA ---
HPI - Chest Pain General: Chief Complaint: Chest Pain Stated Complaint: Chest Pain Time Seen by Provider: 07/06/25 19:43 History of Present Illness: Patient is a 79-year-old female with history of CAD, PTCA with multiple MARY LOU to RCA 06/24, presents to the emergency room with chest pressure. She feels like her chest is full, and full of pressure. This occurred approximately 2 hours prior to arrival. She states compliance to her aspirin, 81 mg, clopidogrel, 75 mg. She does not have any association dizziness, shortness of breath. She has a mild headache, although her blood pressure is quite elevated at bedside. She does believe she has anxiety, and slight irregularity of heart rate. Associated symptoms: Deny abdominal pain, dyspnea, fever(s), nausea, palpitations, syncope or vomiting Related Data Home Medications ?Medication ?Instructions ?Recorded ?Confirmed diltiazem HCl 120 mg 120 mg PO DAILY 09/06/20 06/23/25 capsule,extended release 24 hr fenofibrate nanocrystallized 145 145 mg PO DAILY 09/06/20 06/23/25 mg tablet isosorbide mononitrate 30 mg See Rx Instructions .Route .COMPLEX 09/06/20 06/23/25 tablet,extended release 24 hr levothyroxine 50 mcg tablet 50 mcg PO DAILY 09/06/20 06/23/25 pantoprazole 40 mg tablet,delayed 40 mg PO DAILY 09/06/20 06/23/25 release ranolazine 500 mg tablet,extended 500 mg PO BID 09/06/20 06/23/25 release,12 hr dapagliflozin propanediol 10 mg 10 mg PO DAILY 11/18/23 06/23/25 tablet (Farxiga) temazepam 30 mg capsule 30 mg PO BEDTIME 11/18/23 06/23/25 metoprolol tartrate 25 mg tablet 25 mg PO BID 02/04/24 06/23/25 lorazepam 1 mg tablet 1 mg PO BID 06/23/25 06/23/25 Previous Rx's ?Medication ?Instructions ?Recorded aspirin 81 mg tablet,delayed 81 mg PO DAILY 30 days #30 tabs 06/25/25 release atorvastatin 40 mg tablet 40 mg PO BEDTIME 30 days #30 tabs 06/25/25 clopidogrel 75 mg tablet 75 mg PO DAILY 30 days #30 tabs 06/25/25 nitroglycerin 0.4 mg sublingual 0.4 mg sublingual Q5M PRN Chest 06/25/25 tablet Pain 30 days #30 tabs Allergies Allergy/AdvReac Type Severity Reaction Status Date / Time alprazolam (From Xanax) Allergy ADR-Halluci Verified 07/06/25 18:08 nating codeine Allergy ADR-Vomitin Verified 02/04/24 15:41 g epinephrine (From Primatene Allergy ALGY-Difficulty Verified 02/04/24 15:41 Mist) Breathing mirtazapine Allergy ADR-Halluci Verified 07/06/25 18:08 nating morphine Allergy ALGY-Redness Verified 02/04/24 15:41 of Skin Review of Systems Const: Denies: fever(s) or chills ENMT: Denies: throat pain Card: Reports: chest pain; Denies: palpitations, swelling of feet/ankles or syncope Resp: Denies: dyspnea, productive cough or wheezing GI: Denies: abdominal pain, nausea or vomiting : Denies: flank pain or difficulty voiding Musc: Denies: neck pain or back pain Skin/Breast: Denies: rash or pruritus Neuro: Denies: headache(s) or numbness in extremities Psych: Reports: anxiety; Denies: depression PFSH ED PFSH: Medical History (Updated 07/06/25 @ 21:52 by VANI Camejo) Recurrent UTI Chronic kidney disease (CKD) -on gentle IVF due to anticipated coronary angiogram -baseline Cr appears to be around 1.2-1.3 Dyslipidemia associated with type 2 diabetes mellitus -continue statin Benign essential hypertension with target blood pressure below 140/90 -amlodipine added for more optimal BP control Atherosclerotic heart disease of [place] coronary artery with unstable angina pectoris -s/p bypass x 4, stenting x 3 Peripheral neuropathy [place] spotted fever Hypothyroidism Sleep apnea GERD (gastroesophageal reflux disease) Coronary artery disease Diabetes Kidney disease, chronic, stage II (GFR 60-89 ml/min) Cholecystitis Surgical History History of right-sided carotid endarterectomy Hx of cholecystectomy S/P CABG (coronary artery bypass graft) Patient reports 3 times Family History Father , AT AGE 74 Natural with unknown cause Mother , AT AGE 81 Heart attack Other Family history non-contributory Social History Smoking and tobacco/nicotine status: former use of tobacco/nicotine Alcohol intake: never Substance/Drug Use: never Marital status: Current occupational status: retired Physical Exam Const: COMMON NORMALS: no acute distress, average body habitus and patient oriented x3 HENMT: COMMON NORMALS: normocephalic and atraumatic HEAD & SCALP: normocephalic and atraumatic Eye: COMMON NORMALS: Equal, round and reactive pupils present, EOMs intact bilaterally and conjunctivae normal CONJUNCTIVA: Yes conjunctivae normal PUPIL: Yes Equal, round and reactive pupils present Lymph: LYMPHATIC: no lymphadenopathy noted Chest: COMMONS NORMALS: normal inspection of the chest and normal palpation of entire chest wall Resp: COMMON NORMALS: normal respiratory effort, No retractions and clear to auscultation bilaterally AUSCULTATION: clear to auscultation bilaterally Cardio: COMMON NORMALS: regular rate and regular rhythm RATE: regular rate RHYTHM: regular rhythm GI: COMMON NORMALS: Normal to inspection, nondistended, normoactive bowel sounds present, Soft to palpation and non-tender PALPATION: Yes Soft to palpation : COMMON NORMALS: Yes no CVA tenderness BLADDER/KIDNEY EXAM: Yes no CVA tenderness Back/Pelvis: COMMON NORMALS: no CVA tenderness Extremity: COMMON NORMALS: normal to inspection, full ROM and capillary refill normal Neuro: COMMON NORMALS: patient oriented x3 Psych: COMMON NORMALS: mental status grossly normal, Normal thought process present, cooperative and normal affect THOUGHT PROCESS: Normal thought process present Skin: COMMON NORMALS: no rashes or lesions noted, no wounds and turgor normal GENERAL SKIN EXAM: no rashes or lesions noted and turgor normal Course Vital Signs: Vital signs: Vital Signs Temperature 98.3 F 07/06/25 18:05 Pulse Rate 80 07/06/25 21:00 Respiratory Rate 16 07/06/25 21:00 Blood Pressure 179/94 07/06/25 21:00 Pulse Oximetry 95 07/06/25 21:00 Oxygen Delivery Me thod Room Air 07/06/25 20:58 MDM - Chest Pain Medical Decision Making Patient is 79-year-old female with multiple MARY LOU x 7, the last 1 on 06/23 with MARY LOU to RCA. She had a chest pressure/fullness sensation in her chest today. There were precipitating factors of anxiety. Her daughter recently 2 months ago, and ashes were received in the mail today. Initial workup for ACS is negative. Patient certainly has risk factors. I have provided reassurance, asked her to return to ED if she needs further assistance, and asked her to follow-up with cardiology this next week which is sooner than her scheduled appointment. Patient states understanding. All of her and her daughters questions answered to their satisfaction. Medical Records I reviewed the patient's medical records. Lab Data I reviewed the patient's lab results. 07/06/25 18:41 07/06/25 18:41 Radiology Impressions Chest X-Ray 07/06/25 18:08 IMPRESSION: No acute findings. Laboratory Results WBC 5.40 10^3/uL (3.29-11.43) 07/06/25 18:41 RBC 5.00 10^6/uL (3.85-5.65) 07/06/25 18:41 Hgb 12.00 g/dL (11.27-16.99) 07/06/25 18:41 Hct 37.6 % (36-47) 07/06/25 18:41 MCV 75.2 fl (85-98) L 07/06/25 18:41 MCH 24.0 pg (27-33) L 07/06/25 18:41 MCHC 31.9 g/dL (30-55) 07/06/25 18:41 RDW 18.0 % (12.1-15.1) H 07/06/25 18:41 Plt Count 315 10^3/cmm (157-399) 07/06/25 18:41 MPV 10.7 fL (7.4-10.4) H 07/06/25 18:41 Neut % (Auto) 60.9 % 07/06/25 18:41 Lymph % (Auto) 23.3 % 07/06/25 18:41 Nye % (Auto) 12.8 % 07/06/25 18:41 Eos % (Auto) 2.4 % 07/06/25 18:41 Baso % (Auto) 0.4 % 07/06/25 18:41 Neut # (Auto) 3.29 10^3/uL (1.8-7.7) 07/06/25 18:41 Lymph # (Auto) 1.3 10^3/uL (0.8-4.8) 07/06/25 18:41 Nye # (Auto) 0.7 10^3/uL (0.2-0.9) 07/06/25 18:41 Eos # (Auto) 0.1 10^3/uL (0.0-0.8) 07/06/25 18:41 Baso # (Auto) 0.0 10^3/uL (0.0-0.1) 07/06/25 18:41 Nucleated RBC % (auto) 0 % 07/06/25 18:41 Nucleated RBCs # 0.0 /100WBC 07/06/25 18:41 Sodium 136 mmol/L (136-145) 07/06/25 18:41 Potassium 4.0 mmol/L (3.5-5.1) 07/06/25 18:41 Chloride 100 mmol/L (98-107) 07/06/25 18:41 Carbon Dioxide 23 mmol/L (22-29) 07/06/25 18:41 Anion Gap 17.0 (5-19) 07/06/25 18:41 BUN 12 mg/dL (8-23) 07/06/25 18:41 Creatinine 1.2 mg/dL (0.5-0.9) H 07/06/25 18:41 GFR Calculation Not Reportable 07/06/25 18:41 Glucose 119 mg/dL (65-115) H 07/06/25 18:41 Calculated Osmolality 283 mOsm/kg (285-295) L 07/06/25 18:41 Calcium 9.9 mg/dL (8.5-10.5) 07/06/25 18:41 Magnesium 2.0 mg/dL (1.7-2.3) 07/06/25 18:41 Total Bilirubin 0.3 mg/dL (0.15-1.2) 07/06/25 18:41 AST 23 U/L (0-32) 07/06/25 18:41 ALT 12 U/L (0-33) 07/06/25 18:41 Alkaline Phosphatase 41 U/L (35-105) 07/06/25 18:41 Troponin T Baseline 31 ng/L (0-10) H 07/06/25 18:41 Troponin T 120 Minute 27.91 ng/L (0-10) H 07/06/25 21:10 Delta Troponin T -3.09 ABS# (0-10) L 07/06/25 21:10 Total Protein 7.1 g/dL (6.6-8.7) 07/06/25 18:41 Albumin 4.3 g/dL (3.5-5.2) 07/06/25 18:41 Globulin 2.8 g/dL (1.3-4.6) 07/06/25 18:41 TSH 3.23 uIU/mL (0.27-4.20) 07/06/25 18:41 All radiology interpretation(s) finalized by discharge EKG Data EKG 1: Interpretation: Normal sinus rhythm without ST segment elevation, with PVC, QTc 373 EKG 2: Interpretation: Normal sinus rhythm, normal axis, QTc 429, no ST segment elevation Discharge Plan Discharge Patient Disposition: Home Clinical Impression: Chest pain, non-cardiac Condition: Stable Prescriptions: No Action pantoprazole 40 mg Tablet,Delayed Release (Dr/Ec) 40 mg PO DAILY isosorbide mononitrate 30 mg tablet extended release 24 hr See Rx Instructions .ROUTE .COMPLEX Rx Instructions: 60 mg orally in the morning/ 30 mg orally in the evening levothyroxine 50 mcg tablet 50 mcg PO DAILY diltiazem HCl 120 mg capsule,extended release 24hr 120 mg PO DAILY ranolazine 500 mg tablet extended release 12 hr 500 mg PO BID fenofibrate nanocrystallized 145 mg tablet 145 mg PO DAILY metoprolol tartrate 25 mg tablet 25 mg PO BID lorazepam 1 mg tablet 1 mg PO BID aspirin 81 mg Tablet,Delayed Release (Dr/Ec) 81 mg PO DAILY 30 Days Qty: 30 0RF nitroglycerin 0.4 mg Tablet, Sublingual 0.4 mg sublingual Q5M PRN (Reason: Chest Pain) 30 Days Qty: 30 0RF atorvastatin 40 mg Tablet 40 mg PO BEDTIME 30 Days Qty: 30 0RF clopidogrel 75 mg tablet 75 mg PO DAILY 30 Days Qty: 30 0RF temazepam 30 mg capsule 30 mg PO BEDTIME dapagliflozin propanediol [Farxiga] 10 mg tablet 10 mg PO DAILY Discharge Orders: Discharge ED (Routine); Ordered 07/06/25 Ordered By: Claudette Hooks Referrals: Roverto Arnold MD [Primary Care Provider, Family Practice] Emmanuelle Bethea MD [Physician, Cardiology] - 4-7 days Patient Instructions: Anxiety (ED), Patient Portal & [place] Instructions Activity Restrictions/Additional Instructions: - Continue all of your medications as directed -Call your residence director Wednesday for a follow-up next week. - Return to ED if you have chest pain again. Print Language: Sami Coding Level of Care Code ED Support Technician for Bev Rivera
[2025-07-06 20:58] VITALS: BP 184/88; PULSE 79; RESP 16; O2SAT 96
[2025-07-06 21:00] VITALS: BP 179/94; PULSE 80; RESP 16; O2SAT 95
[2025-07-06 21:04] LABS: Magnesium 2.0 mg/dL (1.7-2.3); Thyroid Stimulating Hormone 3.23 uIU/mL (0.27-4.20)
[2025-07-06 21:38] LABS: Troponin 5 2HR 27.91 ng/L (0-10)
[2025-07-06 21:45] LABS: Troponin 5 2HR Delta -3.09 ABS# (0-10)
== END 2025-07-06 21:59 | disposition home or self-care (01) ==
PROVIDERS: Physician Assistant; Emergency Provider Physician Assistant; PCP Family Medicine
DX: R07.89 Other chest pain (principal); Z79.82 Long term (current) use of aspirin; Z79.02 Long term (current) use of antithrombotics/antiplatelets; Z87.891 Personal history of nicotine dependence; Z95.1 Presence of aortocoronary bypass graft; E78.5 Hyperlipidemia, unspecified; I25.110 Atherosclerotic heart disease of native coronary artery with unstable angina pectoris; E11.22 Type 2 diabetes mellitus with diabetic chronic kidney disease; I12.9 Hypertensive chronic kidney disease with stage 1 through stage 4 chronic kidney disease, or unspecified chronic kidney disease; N18.2 Chronic kidney disease, stage 2 (mild)
CPT/HCPCS: 36415; 71045; 80053; 83735; 84443; 84484; 85025; 93005; 99285; J9999

== ENCOUNTER 2025-07-12 04:34 | Emergency (ER) | payer OTHER, MEDICAID, SELFPAY ==
--- OUTSIDE RECORDS SUMMARY | 2022-12-01 10:00 | XMS_ITS | Continuity of Care Document ---
Author Organization [facility] Address [address] [id number]-[place] [address] Phone Care Team Providers Care Sales Estimator Name Role Phone Vitaly Daley DDS Unavailable [...] Diagnoses Date Provider Providers Copied on Encounter [facility], [id number]-Ul [place], [place], [address], [place] tel:[phone] Dental General No Information Thuy Haider. [address] [place] [address], [address], [place]. tel:[phone] Referring Provider: Vitaly Daley, [address] [place] [address], [address]. tel:[phone] [facility], [id number] 501852XH-Do [place], [place], [address], [place] tel:[phone] Dental General Encounter for dental exam and cleaning w/o abnormal findings Thuy Haider. [address] [place] [address], [address], [place]. tel:[phone] Referring Provider: Vitaly Daley, [address] [place] [address], [address]. tel:[phone] [facility], [id number]-Rw [place], [address], [place] tel:[phone] Dental General LL Encounter for dental exam and cleaning w/o abnormal findings Thuy Haider. [address] [place] [address], [address], [place]. tel:[phone] Referring Provider: Vitaly Daley, [address] [place] [address], [address]. tel:[phone] [facility], [address] [id number] [id number]-Bh [place], [place], [address], [place] tel:[phone] [facility] No Information Migel Lizarraga. [address] [place], [place], [address], [place]. tel:[phone] Referring Provider: Nu Lainez, [address] [place], [address]. tel:[phone] Family History Family Member Type Diagnosis Age At Onset No Information Payers Payer name Insurance type Covered alliance party ID Angelita sparrow(s) D [facility] Advantage CI [id number] Social History Type Description Quantity Date Captured [...]
[2025-07-12] VITALS (8 sets, daily range): BP systolic 151–168; BP diastolic 64–88; PULSE 59–87; RESP 16; TEMP 36.4; O2SAT 90–97; BMI 19.9
--- NOTE | 2025-07-12 04:39 | CTR_ITS ---
PROCEDURE INFORMATION: Exam: CT Abdomen And Pelvis With Contrast Exam date and time: 07/12/2025 5:35 AM Age: 79 years old Clinical indication: Abdominal pain; Additional info: Abd pain/bloating TECHNIQUE: Imaging protocol: Computed tomography of the abdomen and pelvis with contrast. Radiation optimization: All CT scans at this facility use at least one of these dose optimization techniques: automated exposure control; mA and/or kV adjustment per patient size (includes targeted exams where dose is matched to clinical indication); or iterative reconstruction. Contrast material: OMNI 350; Contrast volume: 100 ml; Contrast route: INTRAVENOUS (IV); COMPARISON: CT abdomen pelvis w con* [id number] 03/05/2023 1:46 PM RADIATION DOSE METRICS: Total DLP (mGy-cm): 354.27 FINDINGS: Liver: Normal. No mass. Gallbladder and biliary ducts: Cholecystectomy. Pancreas: Normal. No ductal dilation. Spleen: Normal. No splenomegaly. Adrenal glands: Normal. No mass. Kidneys and ureters: Very tiny renal cysts. Stomach and bowel: Diverticulosis without evidence of diverticulitis. Appendix: No evidence of appendicitis. Intraperitoneal space: Unremarkable. No free air. No significant fluid collection. Vasculature: Unremarkable. No abdominal aortic aneurysm. Lymph nodes: Unremarkable. No enlarged lymph nodes. Urinary bladder: Unremarkable as visualized. Reproductive: Unremarkable as visualized. Bones/joints: Unremarkable. No acute fracture. Soft tissues: Unremarkable. CT/CT abdomen pelvis w con* [id number] IMPRESSION: No acute findings. COMMENTS: Consistent with the [employer]'s Incidental Findings Committee white paper (J Am Av Radiol 2018): Any incidental renal lesion less than 1 cm or classified as too small to characterize, or any incidental cystic renal lesion characterized as simple-appearing, is likely benign. No follow-up imaging is recommended for these lesions per consensus recommendations based on imaging criteria.
--- OUTSIDE RECORDS SUMMARY | 2025-07-12 04:42 | XMS_ITS | Encounter Summary ---
Author Organization [facility] Address [address] [place] [address] Care Team Providers Care Bariatric Nurse Name Role Phone Roverto Arnold MD Primary Care Provider [phone] Encounter Details Date Type Department Care Team [...] file Legal Sex Female 2:56 AM DIRECTOR SOFTWARE DEVELOPMENT Gender Identity Not on file Sexual Orientation Not on file documented as of this encounter Plan of Treatment Not on file documented as of this encounter Procedures Procedure Name Priority Date/Time Associated Diagnosis Comments POC GLUCOSE Routine 10/25/2004 5:43 AM DIRECTOR SOFTWARE DEVELOPMENT POC GLUCOSE Routine 10/24/2004 5:17 PM DIRECTOR SOFTWARE DEVELOPMENT documented in this encounter Results * (ABNORMAL) POC GLUCOSE (10/25/2004 5:43 AM DIRECTOR SOFTWARE DEVELOPMENT) GLUCOSE POC 108(H) 60 - 100 mg/dL INTERFACE SYSTEM 10/25/2004 5:43 AM DIRECTOR SOFTWARE DEVELOPMENT us Charli Barahona MD POINT OF CARE TESTING Jessica l Result INTERFACE SYSTEM Refer to clinic/hospital department * POC GLUCOSE (10/24/2004 5:17 PM DIRECTOR SOFTWARE DEVELOPMENT) GLUCOSE POC 94 60 - 100 mg/dL INTERFACE SYSTEM 10/24/2004 5:17 PM DIRECTOR SOFTWARE DEVELOPMENT Charli Barahona MD POINT OF CARE TESTING Jessica l Result Performing Organization Address [facility] Co de Phone Number INTERFACE SYSTEM Refer to clinic/hospital department documented in this encounter Visit Diagnoses Diagnosis Coronary atherosclerosis of unspecified type of vessel, united [place] or graft- Primary documented in this encounter Additional Health Concerns Infection Onset Date Last Indicated Resolved Time R/O COVID-19 09/16/2020 09/16/2020 09/16/2020 11:3 5 PM DIRECTOR SOFTWARE DEVELOPMENT COVID-19 09/17/2020 09/17/2020 10/07/2020 8:08 PM DIRECTOR SOFTWARE DEVELOPMENT documented as of this encounter Care Teams Bariatric Nurse Relationship Specialty Start Date End Date Roverto Arnold MD [address] [place] [address] PCP - General 12/10/09 documented as of this encounter
--- OUTSIDE RECORDS SUMMARY | 2025-07-12 04:42 | XMS_ITS | Encounter Summary ---
Author Organization [facility] Address [address] [place] [address] Care Team Providers Care Cracker Dough Mixer Name Role Phone Roverto Arnold MD Primary Care Provider [phone] Reason for Referral * Outpatient Services (Routine) - Closed Specialty Diagnoses / Procedures Referred By Contac t Referred To Contact Radiology Diagnoses Goiter, unspecified Procedures US HEAD NECK TISSUES Marie Askew NP [address] [place] [address] Phone: tel: fax: [facility] Ultrasound [address] [place] [address] Phone: tel: fax: Referral ID Status Reason Start Date Expiration Date V isits Requested Visits Authorized [id number] Closed [facility] TO SCHEDULE (SGF) 01/23/2013 02/23/2014 1 1 Encounter Details Date Type Department Care Team (Latest Contact Info) Description 01/23/2013 Ancillary Orders [facility] Pre-Registration [place] CALL TO MAKE APPOINTMENT ONLY [address] [place] [address] Marie Askew NP [address] [place] [address] Goiter, unspecified (Primary Dx) Social History Tobacco Use Types Packs/Day Years Used Date Smoking Tobacco: Former Cigarettes 4 30 0 07/06/1958 - 07/06/1988 Smokeless Tobacco: Never Alcohol Use Standard Drinks/Week Comments No 0 (1 standard drink = 0.6 oz pur e alcohol) Comments No Sex and Gender Information Value Date Recorded Sex Assigned at Not on file Legal Sex Female 2:56 AM TRAFFIC AND TRANSPORT PLANNER Gender Identity Not on file Sexual Orientation [...] 1. Unremarkable examination. rli - uploaded from [employer] - Narrative Procedure Note Mick Ferreira MD [...] from Power Scribe - us Marie Askew INTERPRETIVE NATURALIST US ORDERABLES Final Res ult documented in this encounter Visit Diagnoses Diagnosis Goiter, unspecified- Primary Goiter, unspecified documented in this encounter Additional Health Concerns Infection Onset Date Last Indicated Resolved Time R/O COVID-19 09/16/2020 09/16/2020 09/16/2020 11:3 5 PM TRAFFIC AND TRANSPORT PLANNER COVID-19 09/17/2020 09/17/2020 10/07/2020 8:08 PM TRAFFIC AND TRANSPORT PLANNER documented as of this encounter Care Teams Cracker Dough Mixer Relationship Specialty Start Date End Date Roverto Arnold MD [address] [place] [address] PCP - General 12/10/09 documented as of this encounter
--- OUTSIDE RECORDS SUMMARY | 2025-07-12 04:42 | XMS_ITS | Encounter Summary ---
Author Organization [facility] Address [address] [place] [address] Care Team Providers Care Analytic Programmer Name Role Phone Roverto Arnold MD Primary Care Provider [phone] Encounter Details Date Type Department Care Team (Latest Contact Info) Description 08/24/[address] [facility] General and Trauma Surgery-[address] [place] [address] CAROTID ART OCCL-NO INFARCT (Primary Dx); PERIPH VASCULAR DIS NOS; DIABETES MELLITUS TYPE II-UNCOMPL (CMS/HCC); Pain in limb Social History Tobacco Use Types Packs/Day Years Used Date Smoking Tobacco: Never Assessed Comments Unknown Sex and Gender Information Value Date Recorded Sex Assigned at Not on file Legal Sex Female 2:56 AM CORPORATE GENERAL MANAGER Gender Identity Not on file Sexual [...] COVID-19 09/16/2020 09/16/2020 09/16/2020 11:3 5 PM CORPORATE GENERAL MANAGER COVID-19 09/17/2020 09/17/2020 10/07/2020 8:08 PM CORPORATE GENERAL MANAGER documented as of this encounter Care Teams Analytic Programmer Relationship Specialty Start Date End Date Roverto Arnold MD [address] [place] [address] PCP - General 12/10/09 documented as of this encounter
--- OUTSIDE RECORDS SUMMARY | 2025-07-12 04:42 | XMS_ITS | Encounter Summary ---
Author Organization [facility] Address [address] [place] [address] Care Team Providers Care Forming Roll Operator Heavy Duty Name Role Phone Roverto Arnold MD Primary Care Provider [phone] Encounter Details Date Type Department Care Team (Latest Contact Info) Description 08/24/2005 Outpatient Historical [facility] Cardiovascular Services [address] [place] [address] Markie Ramírez MD NO ADDRESS ON FILE CAROTID ART OCCL-NO INFARCT (Primary Dx) Social History Tobacco Use Types Packs/Day Years Used Date Smoking Tobacco: Never Assessed Comments Unknown Sex and Gender Information Value Date Recorded Sex Assigned at Not on file Legal Sex Female 2:56 AM CRIME PREVENTION POLICE OFFICER Gender Identity Not on file Sexual [...] COVID-19 09/16/2020 09/16/2020 09/16/2020 11:3 5 PM CRIME PREVENTION POLICE OFFICER COVID-19 09/17/2020 09/17/2020 10/07/2020 8:08 PM CRIME PREVENTION POLICE OFFICER documented as of this encounter Care Teams Forming Roll Operator Heavy Duty Relationship Specialty Start Date End Date Roverto Arnold MD [address] [place] [address] PCP - General 12/10/09 documented as of this encounter
--- OUTSIDE RECORDS SUMMARY | 2025-07-12 04:42 | XMS_ITS | Encounter Summary ---
Author Organization [facility] Address [address] [place] [address] Care Team Providers Care Offset Plate Maker Name Role Phone Roverto Arnold MD Primary Care Provider [phone] Encounter Details Date Type Department Care Team (Latest Contact Info) Description 02/09/2006 Outpatient Historical [facility] Cardiovascular Services [address] [place] [address] Markie Ramírez MD NO ADDRESS ON FILE Generalized and Unspecified Atherosclerosis (Primary Dx) Social History Tobacco Use Types Packs/Day Years Used Date Smoking Tobacco: Never Assessed Comments Unknown Sex and Gender Information Value Date Recorded Sex Assigned at Not on file Legal Sex Female 2:56 AM PRODUCE DEPARTMENT SUPERVISOR Gender Identity Not on file Sexual Orientation Not on file documented as of this encounter Plan of Treatment Not on file documented as of this encounter Visit Diagnoses Diagnosis Generalized and unspecified atherosclerosis- Primary documented in this encounter Additional Health Concerns Infection Onset Date Last Indicated Resolved Time R/O COVID-19 09/16/2020 09/16/2020 09/16/2020 11:3 5 PM PRODUCE DEPARTMENT SUPERVISOR COVID-19 09/17/2020 09/17/2020 10/07/2020 8:08 PM PRODUCE DEPARTMENT SUPERVISOR documented as of this encounter Care Teams Offset Plate Maker Relationship Specialty Start Date End Date Roverto Arnold MD [address] [place] [address] PCP - General 12/10/09 documented as of this encounter
--- OUTSIDE RECORDS SUMMARY | 2025-07-12 04:42 | XMS_ITS | Encounter Summary ---
Author Organization [facility] Address [address] [place] [address] Care Team Providers Care Gem Carver Name Role Phone Roverto Arnold MD Primary Care Provider [phone] Encounter Details Date Type Department Care Team (Latest Contact Info) Description 12/16/2004 Outpatient Historical [facility] Cardiac [place] [address] [place] [address] Charli Barahona MD NO ADDRESS ON FILE CORON ATHEROSCL NOORVIK CORON VESSEL (Primary Dx) Social History Tobacco Use Types Packs/Day Years Used Date Smoking Tobacco: Never Assessed Comments Unknown Sex and Gender Information Value Date Recorded Sex Assigned at Not on file Legal Sex Female 2:56 AM SURVEILLANCE OBSERVER Gender Identity Not on file Sexual Orientation Not on file documented as of this encounter Plan of Treatment Not on file documented as of this encounter Procedures Procedure Name Priority Date/Time Associated Diagnosis Comments PT AND APTT Routine 12/16/2004 9:12 AM SURVEILLANCE OBSERVER CBC WITHOUT DIFFERENTIAL Routine 12/16/2004 9:12 AM SURVEILLANCE OBSERVER BASIC METABOLIC PANEL Routine 12/16/2004 9:12 AM SURVEILLANCE OBSERVER documented in this encounter Results * PT AND APTT (12/16/2004 9:12 AM SURVEILLANCE OBSERVER) PROTIME 13.1 12.4 - 14.9 Secs INTERFACE SYSTEM Comment: As of 04 note change in normal range. INR 0.9 INTERFACE SYSTEM Comment: Expected Values for INR: DVT/PE Goal INR 2.5; range 2.0 - 3.0 Valve Replacement Tissue Goal INR 2.5; range 2.0 - 3.0 Mechanical Goal INR 3.0; range 2.5 - 3.5 POST-AL Goal INR 2.5; range 2.0 - 3.0 or Goal 3.0; range 2.5 - 3.5 Atrial Fibrillation Goal INR 2.5; range 2.0 - 3.0 Ischemic Stroke Goal INR 2.5; range 2.0 - 3.0 For additional information see Guidelines for Anticoagulation available from the pharmacy Matt Matson PTT 28.0 24.3 - 37.5 Secs INTERFACE SYSTEM Comment:Therapeutic Range: 12/16/2004 9:12 AM SURVEILLANCE OBSERVER Charli Barahona MD HEMATOLOGY ORDERABLES Jessica l Result INTERFACE SYSTEM Refer to clinic/hospital department * (ABNORMAL) CBC WITHOUT DIFFERENTIAL (12/16/2004 9:12 AM SURVEILLANCE OBSERVER) [facility] WBC 4.4(L) 4.8 - 10.8 K/ul INTERFACE [...] 0.2 K/ul INTERFACE SYSTEM 12/16/2004 9:12 AM SURVEILLANCE OBSERVER Charli Barahona MD HEMATOLOGY ORDERABLES Jessica l Result Performing Organization Address [facility] Co de Phone Number INTERFACE SYSTEM Refer to clinic/hospital department * (ABNORMAL) BASIC METABOLIC PANEL (12/16/2004 9:12 AM SURVEILLANCE OBSERVER) GLUCOSE 112(H) 70 - 110 mg/dL INTERFACE [...] 10.5 mg/dL INTERFACE SYSTEM 12/16/2004 9:12 AM SURVEILLANCE OBSERVER Charli Barahona MD CHEMISTRY ORDERABLES Final Result Performing Organization Address [facility] Co de Phone Number INTERFACE SYSTEM Refer to clinic/hospital department documented in this encounter Visit Diagnoses Diagnosis Coronary atherosclerosis of [place] coronary artery- Primary documented in this encounter Additional Health Concerns Infection Onset Date Last Indicated Resolved Time R/O COVID-19 09/16/2020 09/16/2020 09/16/2020 11:3 5 PM SURVEILLANCE OBSERVER COVID-19 09/17/2020 09/17/2020 10/07/2020 8:08 PM SURVEILLANCE OBSERVER documented as of this encounter Care Teams Gem Carver Relationship Specialty Start Date End Date Roverto Arnold MD [address] [place] [address] PCP - General 12/10/09 documented as of this encounter
--- OUTSIDE RECORDS SUMMARY | 2025-07-12 04:42 | XMS_ITS | Encounter Summary ---
Author Organization [facility] Address [address] [place] [address] Care Team Providers Care Parking Lot Attendant Name Role Phone Roverto Arnold MD Primary Care Provider Encounter Details Date Type Department Care Team (Latest Contact Info) Description 04/21/[address] [facility] Pre-Registration [place] CALL TO MAKE APPOINTMENT ONLY [address] [place] [address] Marie Askew NP [address] [place] [address] Asymptomatic menopause Social History Tobacco Use Types Packs/Day Years Used Date Smoking Tobacco: Former Cigarettes 4 30 0 07/06/1958 - 07/06/1988 Smokeless Tobacco: Never Alcohol Use Standard Drinks/Week Comments No 0 (1 standard drink = 0.6 oz pur e alcohol) Comments No Sex and Gender Information Value Date Recorded Sex Assigned at Not on file Legal Sex Female 2:56 AM INSTRUCTOR FLYING Gender Identity Not on file Sexual Orientation Not on file Occupation Industry Job Start Date Job End Date Not on file Not on file Not on file Not on file documented as of this encounter Plan of Treatment Not on file documented as of this encounter Visit Diagnoses Diagnosis Asymptomatic menopause documented in this encounter Care Teams Parking Lot Attendant Relationship Specialty Start Date End Date Roverto Arnold MD [address] [place] [address] PCP - General 12/10/09 documented as of this encounter
--- OUTSIDE RECORDS SUMMARY | 2025-07-12 04:43 | XMS_ITS | Encounter Summary ---
Author Organization [facility] Address [address] [place] [address] Care Team Providers Care Informal Waiter/Waitress Name Role Phone Roverto Arnold MD Primary Care Provider [phone] Encounter Details Date Type Department Care Team (Late st Contact Info) Description 05/25/2016 Ancillary Orders [facility] Breast [place] [address] [place] [address] Bird Davis MD [address] [place] [address] Visit for screening mammogram (Primary [...] on file Legal Sex Female 2:56 AM CHIEF MERCHANDISING OFFICER Gender Identity Not on file Sexual Orientation Not on file Occupation Industry Job Start Date Job End Date Not on file Not on file Not on file Not on file documented as of this encounter Plan of Treatment Not on file documented as of this encounter Results * MAMMO PRIOR STUDY (11/30/2006 6:30 AM CHIEF MERCHANDISING OFFICER) Narrative 05/25/2016 6:27 AM CDT This exam [...] COVID-19 09/16/2020 09/16/2020 09/16/2020 11:3 5 PM CHIEF MERCHANDISING OFFICER COVID-19 09/17/2020 09/17/2020 10/07/2020 8:08 PM CHIEF MERCHANDISING OFFICER documented as of this encounter Care Teams Informal Waiter/Waitress Relationship Specialty Start Date End Date Roverto Arnold MD [address] [place] [address] PCP - General 12/10/09 documented as of this encounter
--- OUTSIDE RECORDS SUMMARY | 2025-07-12 04:43 | XMS_ITS | Encounter Summary ---
Author Organization [facility] Address [address] [place] [address] Care Team Providers Care Lead Cashier Name Role Phone Roverto Arnold MD Primary Care Provider [phone] Encounter Details Date Type Department Care Team (Late st Contact Info) Description 03/08/2003 Outpatient Historical [facility] General and Trauma Surgery-[address] [place] [address] Ursula Arita, PROGRAM SUPPORT SPECIALIST [address] [place] [address] SURGERY FOLLOWUP, UNSPEC (Primary Dx) Social History Tobacco Use Types Packs/Day Years Used Date Smoking Tobacco: Never Assessed Comments Unknown Sex and Gender Information Value Date Recorded Sex Assigned at Not on file Legal Sex Female 2:56 AM SCIENCE JOB TITLES Gender Identity Not on file Sexual Orientation Not on file documented as of this encounter Plan of Treatment Not on file documented as of this encounter Visit Diagnoses Diagnosis Follow-up examination, following unspecified surgery- Primary documented in this encounter Additional Health Concerns Infection Onset Date Last Indicated Resolved Time R/O COVID-19 09/16/2020 09/16/2020 09/16/2020 11:3 5 PM SCIENCE JOB TITLES COVID-19 09/17/2020 09/17/2020 10/07/2020 8:08 PM SCIENCE JOB TITLES documented as of this encounter Care Teams Lead Cashier Relationship Specialty Start Date End Date Roverto Arnold MD [facility] [place] [address] PCP - General 12/10/09 documented as of this encounter
--- OUTSIDE RECORDS SUMMARY | 2025-07-12 04:43 | XMS_ITS | Encounter Summary ---
Author Organization [facility] Address [address] [place] [address] Care Team Providers Care Demolition Specialist Name Role Phone Roverto Arnold MD Primary Care Provider [phone] Encounter Details Date Type Department Care Team (Latest Contact Info) Description 07/29/1998 Outpatient Historical [facility] Family Medicine [place] [facility] [address] [facility] [address] [place] [address] Colten Mayer MD NO ADDRESS ON FILE Other and unspecified hyperlipidemia (Primary Dx) Social History Tobacco Use Types Packs/Day Years Used Date Smoking Tobacco: Never Assessed Comments Unknown Sex and Gender Information Value Date Recorded Sex Assigned at Not on file Legal Sex Female 2:56 AM GAS OPERATIONS ANALYST Gender Identity Not on file Sexual Orientation Not on file documented as of this encounter Plan of Treatment Not on file documented as of this encounter Visit Diagnoses Diagnosis Other and unspecified hyperlipidemia- Primary documented in this encounter Additional Health Concerns Infection Onset Date Last Indicated Resolved Time R/O COVID-19 09/16/2020 09/16/2020 09/16/2020 11:3 5 PM GAS OPERATIONS ANALYST COVID-19 09/17/2020 09/17/2020 10/07/2020 8:08 PM GAS OPERATIONS ANALYST documented as of this encounter Care Teams Demolition Specialist Relationship Specialty Start Date End Date Roverto Arnold MD [address] [place] [address] PCP - General 12/10/09 documented as of this encounter
--- OUTSIDE RECORDS SUMMARY | 2025-07-12 04:43 | XMS_ITS | Encounter Summary ---
Author Organization [facility] Address [address] Stephen: [place] [address] Care Team Providers Care Supervisor Cemetery Workers Name Role Phone Roverto Arnold MD Primary Care Provider [phone] Encounter Details Date Type Department Care Team (Late st Contact Info) Description 02/01/2002 Outpatient Historical Charli Barahona MD NO ADDRESS ON FILE Social History Tobacco Use Types Packs/Day Years Used Date Smoking Tobacco: Never Assessed Comments Unknown Sex and Gender Information Value Date Recorded Sex Assigned at Not on file Legal Sex Female 2:56 AM OPTIMIZATION MANAGER Gender Identity Not on file Sexual Orientation Not on file documented as of this encounter Plan of Treatment Not on file documented as of this encounter Visit Diagnoses Not on filedocumented in this encounter Additional Health Concerns Infection Onset Date Last Indicated Resolved Time R/O COVID-19 09/16/2020 09/16/2020 09/16/2020 11:3 5 PM OPTIMIZATION MANAGER COVID-19 09/17/2020 09/17/2020 10/07/2020 8:08 PM OPTIMIZATION MANAGER documented as of this encounter Care Teams Supervisor Cemetery Workers Relationship Specialty Start Date End Date Roverto Arnold MD [address] [place] [place] [address] PCP - General 12/10/09 documented as of this encounter
--- OUTSIDE RECORDS SUMMARY | 2025-07-12 04:43 | XMS_ITS | Encounter Summary ---
Author Organization [facility] Address [address] [place] [address] Care Team Providers Care Outside Production Inspector Name Role Phone Roverto Arnold MD Primary Care Provider [phone] Encounter Details Date Type Department Care Team (Latest Contact Info) Description 11/03/1999 Outpatient Historical [facility] Cardiology- [place] [address] [place] [address] Charli Barahona MD NO ADDRESS ON FILE Other and unspecified angina pectoris (Primary Dx); Other specified forms of chronic ischemic heart disease; Mixed hyperlipidemia; Benign hypertension Social History Tobacco Use Types Packs/Day Years Used Date Smoking Tobacco: Never Assessed Comments Unknown Sex and Gender Information Value Date Recorded Sex Assigned at Not on file Legal Sex Female 2:56 AM OVEREDGER Gender Identity Not on file Sexual Orientation [...] COVID-19 09/16/2020 09/16/2020 09/16/2020 11:3 5 PM OVEREDGER COVID-19 09/17/2020 09/17/2020 10/07/2020 8:08 PM OVEREDGER documented as of this encounter Care Teams Outside Production Inspector Relationship Specialty Start Date End Date Roverto Arnold MD [address] [place] [address] PCP - General 12/10/09 documented as of this encounter
--- OUTSIDE RECORDS SUMMARY | 2025-07-12 04:43 | XMS_ITS | Encounter Summary ---
Author Organization [facility] Address [address] [place] [address] Care Team Providers Care National Flatbed Truck Driver Name Role Phone Roverto Arnold MD Primary Care Provider [phone] Encounter Details Date Type Department Care Team (Late st Contact Info) Description 09/03/2003 Outpatient Historical [facility] Social History Tobacco Use Types Packs/Day Years Used Date Smoking Tobacco: Never Assessed Comments Unknown Sex and Gender Information Value Date Recorded Sex Assigned at Not on file Legal Sex Female 2:56 AM ULTRASONOGRAPHER Gender Identity Not on file Sexual Orientation Not on file documented as of this encounter Plan of Treatment Not on file documented as of this encounter Visit Diagnoses Not on filedocumented in this encounter Additional Health Concerns Infection Onset Date Last Indicated Resolved Time R/O COVID-19 09/16/2020 09/16/2020 09/16/2020 11:3 5 PM ULTRASONOGRAPHER COVID-19 09/17/2020 09/17/2020 10/07/2020 8:08 PM ULTRASONOGRAPHER documented as of this encounter Care Teams National Flatbed Truck Driver Relationship Specialty Start Date End Date Roverto Arnold MD [address] [place] [address] PCP - General 12/10/09 documented as of this encounter
--- OUTSIDE RECORDS SUMMARY | 2025-07-12 04:43 | XMS_ITS | Encounter Summary ---
Author Organization [facility] Address [address] [place] [address] Care Team Providers Care Global Compensation Manager Name Role Phone Roverto Arnold MD Primary Care Provider [phone] Encounter Details Date Type Department Care Team (Latest Contact Info) Description 06/01/2001 Outpatient Historical [facility] Breast [place] [address] [facility] [address] [place] [address] Natasha Avelar MD NO ADDRESS ON FILE Other screening mammogram (Primary Dx) Social History Tobacco Use Types Packs/Day Years Used Date Smoking Tobacco: Never Assessed Comments Unknown Sex and Gender Information Value Date Recorded Sex Assigned at Not on file Legal Sex Female 2:56 AM MULTIMEDIA DEVELOPER Gender Identity Not on file Sexual Orientation Not on file documented as of this encounter Plan of Treatment Not on file documented as of this encounter Visit Diagnoses Diagnosis Other screening mammogram- Primary documented in this encounter Additional Health Concerns Infection Onset Date Last Indicated Resolved Time R/O COVID-19 09/16/2020 09/16/2020 09/16/2020 11:3 5 PM MULTIMEDIA DEVELOPER COVID-19 09/17/2020 09/17/2020 10/07/2020 8:08 PM MULTIMEDIA DEVELOPER documented as of this encounter Care Teams Global Compensation Manager Relationship Specialty Start Date End Date Roverto Arnold MD [address] [place] [address] PCP - General 12/10/09 documented as of this encounter
--- OUTSIDE RECORDS SUMMARY | 2025-07-12 04:43 | XMS_ITS | Encounter Summary ---
Author Organization [facility] Address [address] [place] [address] Care Team Providers Care Meat Stringer Name Role Phone Roverto Arnold MD Primary Care Provider Encounter Details Date Type Department Care Team (Latest Contact Info) Description 01/16/2002 Outpatient Historical [facility] [address] [place] [address] Yuan Plata MD NO ADDRESS ON FILE OTHER UNSPEC SLEEP APNEA (Primary Dx) Social History Tobacco Use Types Packs/Day Years Used Date Smoking Tobacco: Never Assessed Comments Unknown Sex and Gender Information Value Date Recorded Sex Assigned at Not on file Legal Sex Female 2:56 AM SHIP BOAT OR BARGE MATE Gender Identity Not on file Sexual Orientation Not on file documented as of this encounter Plan of Treatment Not on file documented as of this encounter Visit Diagnoses Diagnosis Unspecified sleep apnea- Primary documented in this encounter Additional Health Concerns Infection Onset Date Last Indicated Resolved Time R/O COVID-19 09/16/2020 09/16/2020 09/16/2020 11:3 5 PM SHIP BOAT OR BARGE MATE COVID-19 09/17/2020 09/17/2020 10/07/2020 8:08 PM SHIP BOAT OR BARGE MATE documented as of this encounter Care Teams Meat Stringer Relationship Specialty Start Date End Date Roverto Arnold MD [address] [place], [place] [address] PCP - General 12/10/09 documented as of this encounter
--- OUTSIDE RECORDS SUMMARY | 2025-07-12 04:43 | XMS_ITS | Encounter Summary ---
Author Organization [facility] Address [address] [place] [address] Care Team Providers Care Exchange Trouble Shooter Name Role Phone Roverto Arnold MD Primary Care Provider [phone] Encounter Details Date Type Department Care Team (Late st Contact Info) Description 09/04/2003 Outpatient Historical [facility] Social History Tobacco Use Types Packs/Day Years Used Date Smoking Tobacco: Never Assessed Comments Unknown Sex and Gender Information Value Date Recorded Sex Assigned at Not on file Legal Sex Female 2:56 AM MERCHANDISING COORDINATOR Gender Identity Not on file Sexual Orientation Not on file documented as of this encounter Plan of Treatment Not on file documented as of this encounter Visit Diagnoses Not on filedocumented in this encounter Additional Health Concerns Infection Onset Date Last Indicated Resolved Time R/O COVID-19 09/16/2020 09/16/2020 09/16/2020 11:3 5 PM MERCHANDISING COORDINATOR COVID-19 09/17/2020 09/17/2020 10/07/2020 8:08 PM MERCHANDISING COORDINATOR documented as of this encounter Care Teams Exchange Trouble Shooter Relationship Specialty Start Date End Date Roverto Arnold MD [address] [place] [address] PCP - General 12/10/09 documented as of this encounter
--- OUTSIDE RECORDS SUMMARY | 2025-07-12 04:43 | XMS_ITS | Encounter Summary ---
Author Organization [facility] Address [address] [place] [address] Care Team Providers Care Computer Tech Name Role Phone Roverto Arnold MD Primary Care Provider [phone] Encounter Details Date Type Department Care Team (Latest Contact Info) Description 11/30/2006 Outpatient [facility] Breast Center [facility] [address] [place], [place] [address] Bird Davis MD [address] [place] [address] Other Screening Mammogram (Primary Dx) Social History Tobacco Use Types Packs/Day Years Used Date Smoking Tobacco: Never Assessed Comments Unknown Sex and Gender Information Value Date Recorded Sex Assigned at Not on file Legal Sex Female 2:56 AM RAG WILLOW OPERATOR Gender Identity Not on file Sexual Orientation Not on file documented as of this encounter Plan of Treatment Not on file documented as of this encounter Visit Diagnoses Diagnosis Other screening mammogram- Primary documented in this encounter Additional Health Concerns Infection Onset Date Last Indicated Resolved Time R/O COVID-19 09/16/2020 09/16/2020 09/16/2020 11:3 5 PM RAG WILLOW OPERATOR COVID-19 09/17/2020 09/17/2020 10/07/2020 8:08 PM RAG WILLOW OPERATOR documented as of this encounter Care Teams Computer Tech Relationship Specialty Start Date End Date Roverto Arnold MD [address] [place] [facility] [place] [address] PCP - General 12/10/09 documented as of this encounter
--- OUTSIDE RECORDS SUMMARY | 2025-07-12 04:43 | XMS_ITS | Encounter Summary ---
Author Organization [facility] [employer] [place] Address [address] [facility] [address] [place] [address] Phone Care Team Providers Care Laundry Laborer Name Role Phone Marie Askew MD Primary Care Provider Encounter Details Date Type Department Care Team ([facility] Contact Info) Description 09/01/2019 Orders Only [facility] [employer] [address] [place] [address] Jana Melvin NP [address] [facility] [address] [address] Chronic kidney disease stage 3 [...] Upcoming Encounters Date Type Department Care Team ([facility] Contact Info) Description 11/27/2025 2:50 PM DYE RANGE TENDER Office Visit [facility] [employer] [address] [place] [address] Aaron Ugarte MD [address] [facility] [address] [place] [address] documented as of this encounter Procedures Procedure Name Priority Date/Time Associated Diagnosis Comments URINE ALBUMIN / CREATININE RATIO Routine 08/28/2019 3:49 AM DYE RANGE TENDER Chronic kidney disease stage 3 (HCC) CBC Routine 08/28/2019 3:49 AM DYE RANGE TENDER Chronic kidney disease stage 3 (HCC) PTH, INTACT Routine 08/28/2019 3:24 AM DYE RANGE TENDER Chronic kidney disease stage 3 (HCC) documented in this encounter Results * Urine albumin / creatinine ratio (08/28/2019 3:49 AM DYE RANGE TENDER) Creatinine, Urine 197 mg/dL Protein/Creatin ine Ratio 24HR Urine 0.183 mg/mg Protein, Urine 36 Urine specimen (specimen) Urine specimen obtained by clean catch procedure / Unknown 08/28/2019 3:49 AM DYE RANGE TENDER Ellie Basurto MA - 09/04/2019 8:49 AM DYE RANGE TENDER [employer] [place] [address] [employer] Employment [id number] Osteopathic Medicine Teacher: Mick Reynolds DO MPH CLIA: [id number] us Jana Melvin DIRECTOR OUTCOMES LAB URINE ORDERABLES Jessica l Result * CBC (08/28/2019 3:49 AM DYE RANGE TENDER) WBC 5.4 K/uL Red Blood Cell Count 4.79 Hemoglobin 14.0 g/dL Hematocrit 41.1 % MCV 85.8 MCH 29.2 MCHC 34.1 RDW 13.0 Platelet Count 248 MPV 11.2 Absolute Neutrophils 3,580 Absolute Lymphocytes 1,123 Absolute Monocytes 524 Absolute Eosinophils 140 Absolute Basophils 32 Neutrophils 66.3 K/uL Lymphocytes 20.8 Monocytes 9.7 Eosinophils 2.6 Basophils 0.6 Blood specimen (specimen) Venous blood / Unknown 08/28/2019 3:49 AM DYE RANGE TENDER Ellie Basurto MA - 09/04/2019 8:52 AM DYE RANGE TENDER [employer] [facility] [place] [address] [facility] [address] Osteopathic Medicine Teacher: Mick Reynolds DO MPH CLIA: [id number] us Jana Melvin DIRECTOR OUTCOMES LAB BLOOD ORDERABLES Jessica l Result * PTH, intact (08/28/2019 3:24 AM DYE RANGE TENDER) Parathyroid Hormone, Intact 35 pg/mL Blood specimen (specimen) Venous blood / Unknown 08/28/2019 3:24 AM DYE RANGE TENDER Narrative Ellie Brooks MA - 09/04/2019 8:48 AM DYE RANGE TENDER [employer] [place] [address] [facility] [address] Osteopathic Medicine Teacher: Mick Reynolds DO MPH CLIA: [id number] us Jana Melvin DIRECTOR OUTCOMES LAB BLOOD ORDERABLES Jessica l Result documented in this encounter Visit Diagnoses Diagnosis Chronic kidney disease stage 3 (HCC) documented in this encounter Care Teams Laundry Laborer Relationship Specialty Start Date End Date Marie Askew MD [address] [place] [address] PCP - General Nurse Practitioner 03/05/22 documented as of this encounter
--- OUTSIDE RECORDS SUMMARY | 2025-07-12 04:43 | XMS_ITS | Encounter Summary ---
Author Organization [facility] Address [address] [place] [address] Care Team Providers Care Set Making Machine Operator Name Role Phone Roverot Arnold MD Primary Care Provider [phone] Encounter Details Date Type Department Care Team (Late st Contact Info) Description 02/23/2003 Emergency [facility] Emergency Department [address] [place] [address] Roverto Palacios DO NO ADDRESS ON FILE ACUTE LARYNGOTRACH NO OBSTR (Primary Dx) Social History Tobacco Use Types Packs/Day Years Used Date Smoking Tobacco: Never Assessed Comments Unknown Sex and Gender Information Value Date Recorded Sex Assigned at Not on file Legal Sex Female 2:56 AM FURNACE UNLOADER Gender Identity Not on file Sexual Orientation Not on file documented as of this encounter Plan of Treatment Not on file documented as of this encounter Visit Diagnoses Diagnosis Acute laryngotracheitis without mention of obstruction- Primary documented in this encounter Additional Health Concerns Infection Onset Date Last Indicated Resolved Time R/O COVID-19 09/16/2020 09/16/2020 09/16/2020 11:3 5 PM FURNACE UNLOADER COVID-19 09/17/2020 09/17/2020 10/07/2020 8:08 PM FURNACE UNLOADER documented as of this encounter Care Teams Set Making Machine Operator Relationship Specialty Start Date End Date Roverto Arnold MD [address] [place] [address] PCP - General 12/10/09 documented as of this encounter
--- OUTSIDE RECORDS SUMMARY | 2025-07-12 04:43 | XMS_ITS | Encounter Summary ---
Author Organization [facility] Address [address] [place] [address] Care Team Providers Care Gym Teacher Name Role Phone Roverto Arnold MD Primary Care Provider [phone] Encounter Details Date Type Department Care Team (Late st Contact Info) Description 01/17/2002 Outpatient Historical [facility] [address] [place] [address] Social History Tobacco Use Types Packs/Day Years Used Date Smoking Tobacco: Never Assessed Comments Unknown Sex and Gender Information Value Date Recorded Sex Assigned at Not on file Legal Sex Female 2:56 AM CLINICAL BIOSTATISTICIAN Gender Identity Not on file Sexual Orientation Not on file documented as of this encounter Plan of Treatment Not on file documented as of this encounter Visit Diagnoses Not on filedocumented in this encounter Additional Health Concerns Infection Onset Date Last Indicated Resolved Time R/O COVID-19 09/16/2020 09/16/2020 09/16/2020 11:3 5 PM CLINICAL BIOSTATISTICIAN COVID-19 09/17/2020 09/17/2020 10/07/2020 8:08 PM CLINICAL BIOSTATISTICIAN documented as of this encounter Care Teams Gym Teacher Relationship Specialty Start Date End Date Roverto Arnold MD [address], [place] [address] PCP - General 12/10/09 documented as of this encounter
--- OUTSIDE RECORDS SUMMARY | 2025-07-12 04:43 | XMS_ITS | Encounter Summary ---
Author Organization [facility] Address [address] [place] [address] Care Team Providers Care Learning Engineer Name Role Phone Roverto Arnold MD Primary Care Provider [phone] Encounter Details Date Type Department Care Team (Latest Contact Info) Description 01/25/2007 Outpatient Historical [facility] [address] [place] [address] Bird Davis MD [address] [place] [address] Disorder of Bone and Cartilage, Unspecified (Primary Dx) Social History Tobacco Use Types Packs/Day Years Used Date Smoking Tobacco: Never Assessed Comments Unknown Sex and Gender Information Value Date Recorded Sex Assigned at Not on file Legal Sex Female 2:56 AM STAFF ELECTRICAL ENGINEER Gender Identity Not on file Sexual [...] Bone Imaging, Whole Body: Radiopharmaceutical: Tc-99m HDP ([id number]) Dose: 21.4 mCiReason for Consultation: Diffuse bone [...] Bone Imaging, Whole Body: Radiopharmaceutical: Tc-99m HDP ([id number]) Dose: 21.4 mCiReason for Consultation: Diffuse bone [...] R/O COVID-19 09/16/2020 09/16/202009/1609/16/2020 11:3 5 PM STAFF ELECTRICAL ENGINEER COVID-19 09/17/2020 09/17/2020 10/07/2020 8:08 PM STAFF ELECTRICAL ENGINEER documented as of this encounter Care Teams Learning Engineer Relationship Specialty Start Date End Date Roverto Arnold MD [address] [place] [address] PCP - General 12/10/09 documented as of this encounter
--- OUTSIDE RECORDS SUMMARY | 2025-07-12 04:43 | XMS_ITS | Encounter Summary ---
Author Organization [facility] Address [address] [place] [address] Care Team Providers Care Triage Rn Name Role Phone Roverto Arnold MD Primary Care Provider Encounter Details Date Type Department Care Team (Latest Contact Info) Description 05/18/2002 Outpatient Historical [facility] [place] [address] Xander Askew MD [address] [facility] [address] [place] [address] ESOPHAGEAL REFLUX (Primary Dx) Social History Tobacco Use Types Packs/Day Years Used Date Smoking Tobacco: Never Assessed Comments Unknown Sex and Gender Information Value Date Recorded Sex Assigned at Not on file Legal Sex Female 2:56 AM TANK CLEANING SUPERVISOR Gender Identity Not on file Sexual Orientation Not on file documented as of this encounter Plan of Treatment Not on file documented as of this encounter Visit Diagnoses Diagnosis Esophageal reflux- Primary documented in this encounter Additional Health Concerns Infection Onset Date Last Indicated Resolved Time R/O COVID-19 09/16/2020 09/16/2020 09/16/2020 11:3 5 PM TANK CLEANING SUPERVISOR COVID-19 09/17/2020 09/17/2020 10/07/2020 8:08 PM TANK CLEANING SUPERVISOR documented as of this encounter Care Teams Triage Rn Relationship Specialty Start Date End Date Roverto Arnold MD [address] [facility] [place] [address] PCP - General 12/10/09 documented as of this encounter
--- OUTSIDE RECORDS SUMMARY | 2025-07-12 04:43 | XMS_ITS | Encounter Summary ---
Author Organization [facility] Address [address] [place] [address] Care Team Providers Care Vault Maker Name Role Phone Roverto Arnold MD Primary Care Provider [phone] Encounter Details Date Type Department Care Team (Late st Contact Info) Description 12/10/2003 Outpatient Historical [facility] General and Trauma Surgery-[address] [place] [address] Ursula Arita, PIPE CREW FOREMAN [address] [place] [address] CAROTID ART OCCL-NO INFARCT (Primary Dx); PERIPH VASCULAR DIS NOS; DIABETES UNCOMPL ADULT-TYPE II (CMS/HCC) Social History Tobacco Use Types Packs/Day Years Used Date Smoking Tobacco: Never Assessed Comments Unknown Sex and Gender Information Value Date Recorded Sex Assigned at Not on file Legal Sex Female 2:56 AM FLIGHT SECURITY SPECIALIST Gender Identity Not on file Sexual [...] COVID-19 09/16/2020 09/16/2020 09/16/2020 11:3 5 PM FLIGHT SECURITY SPECIALIST COVID-19 09/17/2020 09/17/2020 10/07/2020 8:08 PM FLIGHT SECURITY SPECIALIST documented as of this encounter Care Teams Vault Maker Relationship Specialty Start Date End Date Roverto Arnold MD [address] [place] [address] PCP - General 12/10/09 documented as of this encounter
--- OUTSIDE RECORDS SUMMARY | 2025-07-12 04:43 | XMS_ITS | Clinical Summary ---
Author Organization [facility] Address [address] [place] [address] Phone Care Team Providers Care Multimedia Editor Name Role Phone Roverto Arnold MD Primary Care Provider [phone] Allergies Active Allergy Reactions Criticality Noted Date [...] D (coronary artery disease),Pure hyperglyceridemia,DM (diabetes mellitus) ([facility]) Take 50 mcg by mouth daily pharmacy delivery driver. Active aspirin (ECOTRIN EC) 81 mg Tablet, [...] daily. 90 Tablet 1 9 1:21 PM SERVICE CAPTAIN 12/12/19 19 Active ranolazine ER (RANEXA) 500 [...] (04/26/2020): Added automatically from request for surgery [id number] Unstable angina 12/06/2018 06/10/2019 Chest pain 06/19/2015 [...] on file Legal Sex Female 2:56 AM SERVICE CAPTAIN Gender Identity Not on file Sexual [...] history exists Medical Devices Implanted Type Area Hydropulper Operator Device Identifier Shelf Expiration Date Model / Serial / Lot Sealant Progel Pleural 4ml [id number] - [id number] Implanted:Qty: 1 on 02/20/2013 by Fabio Islas MD at [facility] Biological N/A: Chest CR BARD- [employer]OL INC 09/22/2014 [id number] / / [id number] Sealant Mynx Compensation Consultant 6-7fr [id number] - [id number] Implanted:12/2019 at [facility] (Quantity not on file) Closure Device Right: Groin ACCESS CLOSURE 01/22/2022 [id number] / / [id number] Closure Perclose Proglide [id number] - [id number] Implanted:Qty: 1 on 02/05/2021 at [facility] Closure Device Right: Groin DUDLEY- VASC DEVICE 10/24/2022 [id number] / / [id number] [place] Ptfe Thck 1.6mmx2.5x10.2 cm [id number] - [id number] Implanted:Qty: 1 on 02/20/2013 by Fabio Islas MD at [facility] Graft N/A: Chest CR BARD- GUILLERMO VASC INC 08/22/2017 [id number] / / [id number] [place] Ptfe Thck 1.6mmx2.5x2.5c m [id number] - [id number] Implanted:Qty: 1 on 02/20/2013 at [facility] Graft CR BARD- GUILLERMO VASC INC 12/22/2017 [id number] / / [id number] Sealant Floseal W/ Adptr 10ml [id number] - [id number] Implanted:Qty: 1 on 02/20/2013 by Fabio Islas MD at [facility] Sealant N/A: Chest LOPES- BIOSCIENCE 02/20/2014 [id number] / / [id number] Sealant Floseal W/ Adptr 10ml [id number] - [id number] Implanted:Qty: 1 on 02/20/2013 by Niranjan Reilly MD at [facility] Sealant LOPES- BIOSCIENCE 04/23/2014 [id number] / / [id number] Promus Premier 2.25x12 Implanted:06/2015 (Quantity not on file) Stent Stent Synergy Mr 4.0x28mm Drug Elut [id number] - [id number] Implanted:12/2019 at [facility] (Quantity not on file) Stent Right: Coronary BOSTON SCI MAULIK 09/12/2021 [id number] / / [id number] Stent Synergy Mr 2.5x16mm Drug Elut [id number] - [id number] Implanted:Qty: 1 on 02/05/2021 by Bird Hernandez MD at [facility] Stent Left: Coronary [employer]UL[employer] 09/11/2022 [id number] / / [id number] Stent Synergy Mr 4.0x8mm Drug Elut [id number] - [id number] Implanted:Qty: 1 on 02/05/2021 by Bird Hernandez MD at [facility] Stent Left: Coronary [employer] MAULIK 08/05/2022 [id number] / / [id number] Stent Synergy Mr 4.0x12mm Drug Elut [id number] - [id number] Implanted:Qty: 1 on 02/05/2021 by Bird Hernandez MD at [facility] Stent Right: Coronary [employer] MAULIK 08/27/2022 [id number] / / [id number] Marker Graft 1001-83 - [id number] Implanted:Qty: 1 on 02/20/2013 by Fabio Islas MD at [facility] N/A: Chest ROMAN INT 05/22/2016 1001-83 / / [id number] Explanted Type Area Hydropulper Operator Device Identifier Shelf Expiration Date Model / Serial / Lot Stent Graftmaster 4.5x19 Rx [id number] - [id number] Implanted:Qty: 1 Explanted:Qty: 1 on 04/26/2020 at [facility] Stent Right: Coronary DUDLEY- VASC DEVICE 02/21/2021 [id number] / / [id number] Description:inserted and rem chayo undeployed and intact Procedures Procedure Name Priority Date/Time Associated Diagnosis Comments LIPID PANEL Routine 02/04/2021 8:33 AM CDT Multiple vessel coronary artery disease PVD (peripheral vascular disease) HEMOGLOBIN A1C Routine 12/06/2018 11:56 PM SERVICE CAPTAIN from Last 3 Months or Most Recently Relevant to Health Maintenance Results * (ABNORMAL) LIPID PANEL (02/04/2021 8:33 AM CDT) CHOLESTEROL 231(H) <200 mg/dL 02/04/2021 9:30 PM CDT [facility] TRIGLYCERIDE 493(H) <150 mg/dL 02/04/2021 9:30 PM CDT [facility] HDL 40 40 - 59 mg/dL 02/04/2021 9:30 PM CDT [facility] LDL CALCULATED 02/04/2021 9:30 PM CDT [facility] Comment:Calculated LDL is no t accurate when the Triglyceride value exceeds 400. NON-HDL CHOLESTEROL 191(H) <130 mg/dL 02/04/2021 9:30 PM CDT [facility] Blood Venipuncture / Unknown 02/04/2021 8:33 AM CDT 02/04/2021 8:14 PM CDT Narrative [facility] - 02/04/2021 9:30 [...] CHEMISTRY ORDERABLES Final Result Performing Organization Address [facility] de Phone Number [facility] CLIA# [id number] [address] [place] [address] * (ABNORMAL) HEMOGLOBIN A1C (12/06/2018 11:56 PM SERVICE CAPTAIN) HEMOGLOBIN A1C 7.7(H) 4.0 - 6.0 % 12/07/2018 12:24 PM SERVICE CAPTAIN [facility] EST. AVG GLUCOSE, A1C 174 mg/dL 12/07/2018 12:24 PM [facility] Blood Venipuncture / Unknown 12/06/2018 11:56 PM SERVICE CAPTAIN 12/07/2018 12:08 AM SERVICE CAPTAIN Narrative [facility] - 12/07/2018 12:24 PM SERVICE CAPTAIN HGB A1C INTERPRETATION NORMAL: <5.7% PRE-DIABETES: 5.7 - 6.4% DIABETES: 6.5% OR GREATER Barrera Corral MD CHEMISTRY ORDERABLES Fi nal Result Performing Organization Address [facility] Co de Phone Number [facility] CLIA# [id number] [address] [place], [place] [address] from Last 3 Months or Most Recently Relevant to Health Maintenance Insurance [place] [facility] DUAL COMPLETE MCR PPO D-SNP RX [facility] Medicare Part D RX INFOCROSSING Medicaid Advance Directives For more information, please contact: [phone] * Full Code (Latest Code Status on [...] 11:48 AM 04/25/2020 10:44 PM Care Teams Multimedia Editor Relationship Specialty Start Date End Date Roverto Arnold MD [address] [place] [address] PCP - General 12/10/09
--- OUTSIDE RECORDS SUMMARY | 2025-07-12 04:43 | XMS_ITS | Encounter Summary ---
Author Organization [facility] Address [address] [place] [address] Care Team Providers Care First Calender Worker Name Role Phone Roverto Arnold MD Primary Care Provider [phone] Encounter Details Date Type Department Care Team (Latest Contact Info) Description 09/20/2003 Outpatient Historical [facility] [address] [place] [address] Jose G Talley MD [address] [place] [address] DIABETES UNCOMPL ADULT-UNCONTRLLED (Primary Dx) Social History Tobacco Use Types Packs/Day Years Used Date Smoking Tobacco: Never Assessed Comments Unknown Sex and Gender Information Value Date Recorded Sex Assigned at Not on file Legal Sex Female 2:56 AM EDGE STAINER MACHINE Gender Identity Not on file Sexual Orientation [...] COVID-19 09/16/2020 09/16/2020 09/16/2020 11:3 5 PM EDGE STAINER MACHINE COVID-19 09/17/2020 09/17/2020 10/07/2020 8:08 PM EDGE STAINER MACHINE documented as of this encounter Care Teams First Calender Worker Relationship Specialty Start Date End Date Roverto Arnold MD [address] [place] [address] PCP - General 12/10/09 documented as of this encounter
--- OUTSIDE RECORDS SUMMARY | 2025-07-12 04:43 | XMS_ITS | Encounter Summary ---
Author Organization [facility] Address [address] [place] [address] Care Team Providers Care Resource Room Special Education Teacher Name Role Phone Roverto Arnold MD Primary Care Provider [phone] Encounter Details Date Type Department Care Team (Latest Contact Info) Description 08/20/2003 Outpatient Historical [facility] [address] [place] [address] Jose G Talley MD [address] [place] [address] DIABETES UNCOMPL ADULT-UNCONTRLLED (Primary Dx) Social History Tobacco Use Types Packs/Day Years Used Date Smoking Tobacco: Never Assessed Comments Unknown Sex and Gender Information Value Date Recorded Sex Assigned at Not on file Legal Sex Female 2:56 AM VEGETABLE FARM WORKER Gender Identity Not on file Sexual [...] COVID-19 09/16/2020 09/16/2020 09/16/2020 11:3 5 PM VEGETABLE FARM WORKER COVID-19 09/17/2020 09/17/2020 10/07/2020 8:08 PM VEGETABLE FARM WORKER documented as of this encounter Care Teams Resource Room Special Education Teacher Relationship Specialty Start Date End Date Roverto Arnold MD [address] [place] [address] PCP - General 12/10/09 documented as of this encounter
--- OUTSIDE RECORDS SUMMARY | 2025-07-12 04:43 | XMS_ITS | Encounter Summary ---
Author Organization [facility] Address [address] Stephen: [place] [address] Care Team Providers Care Screen Printing Supervisor Name Role Phone Roverto Arnold MD Primary Care Provider [phone] Encounter Details Date Type Department Care Team (Latest Contact Info) Description 01/20/2002 Emergency Yuan Mcclain MD [address] [facility] [place] [id number] Social History Tobacco Use Types Packs/Day Years Used Date Smoking Tobacco: Never Assessed Comments Unknown Sex and Gender Information Value Date Recorded Sex Assigned at Not on file Legal Sex Female 2:56 AM GRAIN LOADER Gender Identity Not on file Sexual Orientation Not on file documented as of this encounter Plan of Treatment Not on file documented as of this encounter Visit Diagnoses Not on filedocumented in this encounter Additional Health Concerns Infection Onset Date Last Indicated Resolved Time R/O COVID-19 09/16/2020 09/16/2020 09/16/2020 11:3 5 PM GRAIN LOADER COVID-19 09/17/2020 09/17/2020 10/07/2020 8:08 PM GRAIN LOADER documented as of this encounter Care Teams Screen Printing Supervisor Relationship Specialty Start Date End Date Roverto Arnold MD [address], [place] [address] PCP - General 2/16/10 documented as of this encounter
--- OUTSIDE RECORDS SUMMARY | 2025-07-12 04:43 | XMS_ITS | Encounter Summary ---
Author Organization [facility] Address [address] [place] [address] Care Team Providers Care Grocery Shopper Name Role Phone Roverto Arnold MD Primary Care Provider [phone] Encounter Details Date Type Department Care Team (Latest Contact Info) Description 11/30/2006 Outpatient Historical [facility] [place] [address] [place] [address] Other Screening Mammogram (Primary Dx) Social History Tobacco Use Types Packs/Day Years Used Date Smoking Tobacco: Never Assessed Comments Unknown Sex and Gender Information Value Date Recorded Sex Assigned at Not on file Legal Sex Female 2:56 AM TRIAGE TECHNICIAN Gender Identity Not on file Sexual Orientation Not on file documented as of this encounter Plan of Treatment Not on file documented as of this encounter Visit Diagnoses Diagnosis Other screening mammogram- Primary documented in this encounter Additional Health Concerns Infection Onset Date Last Indicated Resolved Time R/O COVID-19 09/16/2020 09/16/2020 09/16/2020 11:3 5 PM TRIAGE TECHNICIAN COVID-19 09/17/2020 09/17/2020 10/07/2020 8:08 PM TRIAGE TECHNICIAN documented as of this encounter Care Teams Grocery Shopper Relationship Specialty Start Date End Date Roverto Arnold MD [facility] [address] [place], [place] [address] PCP - General 12/10/09 documented as of this encounter
--- OUTSIDE RECORDS SUMMARY | 2025-07-12 04:43 | XMS_ITS | Encounter Summary ---
Author Organization [facility] Address [address] [place] [address] Care Team Providers Care Candy Separator Hard Name Role Phone Roverto Arnold MD Primary Care Provider [phone] Encounter Details Date Type Department Care Team (Latest Contact Info) Description 08/06/2003 Outpatient Historical [facility] Cardiovascular Services [address] [place] [address] Le Carmichael, DO [address] [place] [address] CARDIOVAS SYS SYMP NEC (Primary Dx) Social History Tobacco Use Types Packs/Day Years Used Date Smoking Tobacco: Never Assessed Comments Unknown Sex and Gender Information Value Date Recorded Sex Assigned at Not on file Legal Sex Female 2:56 AM DAYCARE MANAGER Gender Identity Not on file Sexual Orientation Not on file documented as of this encounter Plan of Treatment Not on file documented as of this encounter Visit Diagnoses Diagnosis Other symptoms involving cardiovascular system- Primary documented in this encounter Additional Health Concerns Infection Onset Date Last Indicated Resolved Time R/O COVID-19 09/16/2020 09/16/2020 09/16/2020 11:3 5 PM DAYCARE MANAGER COVID-19 09/17/2020 09/17/2020 10/07/2020 8:08 PM DAYCARE MANAGER documented as of this encounter Care Teams Candy Separator Hard Relationship Specialty Start Date End Date Roverto Arnold MD [address] [place] [address] PCP - General 12/10/09 documented as of this encounter
--- OUTSIDE RECORDS SUMMARY | 2025-07-12 04:43 | XMS_ITS | Encounter Summary ---
Author Organization [facility] Address [address] [place] [address] Care Team Providers Care Real Estate Associate Name Role Phone Roverto Arnold MD Primary Care Provider [phone] Encounter Details Date Type Department Care Team (Latest Contact Info) Description 06/21/2003 Outpatient Historical [facility] Used Gym Equipment [facility] [address] [place] [place] [address] Le Carmichael, DO [address] [place] [address] SCREENING MAMM-MAILG NEOPL-OTHER (Primary Dx) Social History Tobacco Use Types Packs/Day Years Used Date Smoking Tobacco: Never Assessed Comments Unknown Sex and Gender Information Value Date Recorded Sex Assigned at Not on file Legal Sex Female 2:56 AM BOILER OPERATOR Gender Identity Not on file Sexual Orientation Not on file documented as of this encounter Plan of Treatment Not on file documented as of this encounter Visit Diagnoses Diagnosis Other screening mammogram- Primary documented in this encounter Additional Health Concerns Infection Onset Date Last Indicated Resolved Time R/O COVID-19 09/16/2020 09/16/2020 09/16/2020 11:3 5 PM BOILER OPERATOR COVID-19 09/17/2020 09/17/2020 10/07/2020 8:08 PM BOILER OPERATOR documented as of this encounter Care Teams Real Estate Associate Relationship Specialty Start Date End Date Roverto Arnold MD [address] [place] [address] PCP - General 12/10/09 documented as of this encounter
--- OUTSIDE RECORDS SUMMARY | 2025-07-12 04:43 | XMS_ITS | Encounter Summary ---
Author Organization [facility] Address [address] [place] [address] Care Team Providers Care Precast Worker Name Role Phone Roverto Arnold MD Primary Care Provider [phone] Encounter Details Date Type Department Care Team (Latest Contact Info) Description 11/05/2005 Outpatient Historical [facility] Cardiology- [place] [address] [place] [address] Charli Barahona MD NO ADDRESS ON FILE CHR ISCHEMIC HRT DIS NEC (Primary Dx); MIXED HYPERLIPIDEMIA; Benign hypertension; DIABETES MELLITUS TYPE II-UNCOMPL ([facility] Social History Tobacco Use Types Packs/Day Years Used Date Smoking Tobacco: Never Assessed Comments Unknown Sex and Gender Information Value Date Recorded Sex Assigned at Not on file Legal Sex Female 2:56 AM RECREATIONAL RESORT MANAGER Gender Identity Not on file Sexual [...] COVID-19 09/16/2020 09/16/2020 09/16/2020 11:3 5 PM RECREATIONAL RESORT MANAGER COVID-19 09/17/2020 09/17/2020 10/07/2020 8:08 PM RECREATIONAL RESORT MANAGER documented as of this encounter Care Teams Precast Worker Relationship Specialty Start Date End Date Roverto Arnold MD [address] [place] [address] PCP - General 12/10/09 documented as of this encounter
--- OUTSIDE RECORDS SUMMARY | 2025-07-12 04:43 | XMS_ITS | Encounter Summary ---
Author Organization [facility] Address [address] [place] [address] Care Team Providers Care Tree Chipper Name Role Phone Roverto Arnold MD Primary Care Provider [phone] Encounter Details Date Type Department Care Team (Latest Contact Info) Description 12/28/2006 Outpatient Historical [facility] Cardiology- [place] [address] [place] [address] Claire-Yoana Sow, ALEX [address] [address] Palpitations (Primary Dx); Other Dyspnea and Respiratory Abnormality; Unspecified Chronic Ischemic Heart Disease; Unspecified Peripheral Vascular Disease Social History Tobacco Use Types Packs/Day Years Used Date Smoking Tobacco: Never Assessed Comments Unknown Sex and Gender Information Value Date Recorded Sex Assigned at Not on file Legal Sex Female 2:56 AM PRINT ROOM WORKER Gender Identity Not on file Sexual [...] COVID-19 09/16/2020 09/16/2020 09/16/2020 11:3 5 PM PRINT ROOM WORKER COVID-19 09/17/2020 09/17/2020 10/07/2020 8:08 PM PRINT ROOM WORKER documented as of this encounter Care Teams Tree Chipper Relationship Specialty Start Date End Date Roverto Arnold MD [address] [place] [address] PCP - General 12/10/09 documented as of this encounter
--- OUTSIDE RECORDS SUMMARY | 2025-07-12 04:43 | XMS_ITS | Encounter Summary ---
Author Organization [facility] Address [address] Stephen: [place] [address] Care Team Providers Care Mounter Clarinets Name Role Phone Roverto Arnold MD Primary [...] on file Legal Sex Female 2:56 AM PEOPLESOFT ADMINISTRATOR Gender Identity Not on file Sexual Orientation Not on file documented as of this encounter Plan of Treatment Not on file documented as of this encounter Visit Diagnoses Not on filedocumented in this encounter Additional Health Concerns Infection Onset Date Last Indicated Resolved Time R/O COVID-19 09/16/2020 09/16/2020 09/16/2020 11:3 5 PM PEOPLESOFT ADMINISTRATOR COVID-19 09/17/2020 09/17/2020 10/07/2020 8:08 PM PEOPLESOFT ADMINISTRATOR documented as of this encounter Care Teams Mounter Clarinets Relationship Specialty Start Date End Date Roverto Arnold MD [address] [place] [facility] [place] [address] PCP - General 12/10/09 documented as of this encounter
--- OUTSIDE RECORDS SUMMARY | 2025-07-12 04:43 | XMS_ITS | Encounter Summary ---
Author Organization [facility] Address [address] [place] [address] Care Team Providers Care Aircraft Metalsmith Name Role Phone Roverto Arnold MD Primary Care Provider [phone] Encounter Details Date Type Department Care Team (Latest Contact Info) Description 01/01/[address] [facility] CT Scan [address] [place] [address] Patty Woods, CERTIFIED EXECUTIVE CHEF [address] [place] [address] Neck Pain; Low Back Pain Radiating to Both Legs; Dizziness Social History Tobacco Use Types Packs/Day Years Used Date Smoking Tobacco: Never Assessed Comments Unknown Sex and Gender Information Value Date Recorded Sex Assigned at Not on file Legal Sex Female 2:56 AM DRESSER TENDER Gender Identity Not on file Sexual [...] multilevel degenerative changes. [email or web address] - uploaded from [email or web address] - Narrative 01/03/2009 3:40 PM CDT The [...] multilevel degenerative changes. sdm - uploaded from [email or web address] - Delaney Liu MD CT ORDERABLES Final [...] R/O COVID-09/16/2020 09/16/2020 09/16/2020 11:3 5 PM DRESSER TENDER COVID-19 09/17/2020 09/17/2020 10/07/2020 8:08 PM DRESSER TENDER documented as of this encounter Care Teams Aircraft Metalsmith Relationship Specialty Start Date End Date Roverto Arnold MD [address] [place] [address] PCP - General 12/10/09 documented as of this encounter
--- OUTSIDE RECORDS SUMMARY | 2025-07-12 04:43 | XMS_ITS | Encounter Summary ---
Author Organization [facility] Address [address] [place] [address] Care Team Providers Care Wax Bleacher Name Role Phone Roverto Arnold MD Primary Care Provider Encounter Details Date Type Department Care Team (Latest Contact Info) Description 12/02/1998 Outpatient Historical [facility] Ramonita [facility] [address] [place] [address] Colten Mayer MD NO ADDRESS ON FILE Diaphragmatic hernia (Primary Dx) Social History Tobacco Use Types Packs/Day Years Used Date Smoking Tobacco: Never Assessed Comments Unknown Sex and Gender Information Value Date Recorded Sex Assigned at Not on file Legal Sex Female 2:56 AM WHITE SUGAR PAN TANK OPERATOR Gender Identity Not on file Sexual Orientation Not on file documented as of this encounter Plan of Treatment Not on file documented as of this encounter Visit Diagnoses Diagnosis Diaphragmatic hernia- Primary Diaphragmatic hernia without mention of obstruction or gangrene documented in this encounter Additional Health Concerns Infection Onset Date Last Indicated Resolved Time R/O COVID-19 09/16/2020 09/16/2020 09/16/2020 11:3 5 PM WHITE SUGAR PAN TANK OPERATOR COVID-19 09/17/2020 09/17/2020 10/07/2020 8:08 PM WHITE SUGAR PAN TANK OPERATOR documented as of this encounter Care Teams Wax Bleacher Relationship Specialty Start Date End Date Roverto Arnold MD [address] [place] [address] PCP - General 12/10/09 documented as of this encounter
--- OUTSIDE RECORDS SUMMARY | 2025-07-12 04:43 | XMS_ITS | Encounter Summary ---
Author Organization [facility] Address [address] [place] [address] Care Team Providers Care Block Trimmer Name Role Phone Roverto Arnold MD Primary Care Provider [phone] Encounter Details Date Type Department Care Team (Latest Contact Info) Description 09/01/2004 Outpatient Historical [facility] Cardiology- [place] [address] [place] [address] Charli Barahona MD NO ADDRESS ON FILE PRECORDIAL PAIN (Primary Dx); MIXED HYPERLIPIDEMIA; DIABETES MELLITUS TYPE II-UNCOMPL (CMS/HCC); CHR ISCHEMIC HRT DIS NEC Social History Tobacco Use Types Packs/Day Years Used Date Smoking Tobacco: Never Assessed Comments Unknown Sex and Gender Information Value Date Recorded Sex Assigned at Not on file Legal Sex Female 2:56 AM BATTERY ASSEMBLER PLASTIC Gender Identity Not on file Sexual Orientation [...] COVID-19 09/16/2020 09/16/2020 09/16/2020 11:3 5 PM BATTERY ASSEMBLER PLASTIC COVID-19 09/17/2020 09/17/2020 10/07/2020 8:08 PM BATTERY ASSEMBLER PLASTIC documented as of this encounter Care Teams Block Trimmer Relationship Specialty Start Date End Date Roverto Arnold MD [address] [place] [address] PCP - General 12/10/09 documented as of this encounter
--- OUTSIDE RECORDS SUMMARY | 2025-07-12 04:43 | XMS_ITS | Encounter Summary ---
Author Organization [facility] Address [address] Stephen: [place] [address] Care Team Providers Care Wedding Planner Name Role Phone Roverto Arnold MD Primary Care Provider [phone] Encounter Details Date Type Department Care Team (Late st Contact Info) Description 04/26/2002 Inpatient Historical Scotty Kapadia MD [address] [place] [address] Social History Tobacco Use Types Packs/Day Years Used Date Smoking Tobacco: Never Assessed Comments Unknown Sex and Gender Information Value Date Recorded Sex Assigned at Not on file Legal Sex Female 2:56 AM ASSISTANT PRINCIPAL Gender Identity Not on file Sexual Orientation Not on file documented as of this encounter Plan of Treatment Not on file documented as of this encounter Visit Diagnoses Not on filedocumented in this encounter Additional Health Concerns Infection Onset Date Last Indicated Resolved Time R/O COVID-19 09/16/2020 09/16/2020 09/16/2020 11:3 5 PM ASSISTANT PRINCIPAL COVID-19 09/17/2020 09/17/2020 10/07/2020 8:08 PM ASSISTANT PRINCIPAL documented as of this encounter Care Teams Wedding Planner Relationship Specialty Start Date End Date Roverto Arnold MD [address] [place], [place] [address] PCP - General 12/10/09 documented as of this encounter
--- OUTSIDE RECORDS SUMMARY | 2025-07-12 04:43 | XMS_ITS | Encounter Summary ---
Author Organization [facility] Address [address] [place] [address] Care Team Providers Care Police Pilot Name Role Phone Roverto Arnold MD Primary Care Provider [phone] Encounter Details Date Type Department Care Team (Late st Contact Info) Description 10/30/2003 Outpatient Historical [facility] Social History Tobacco Use Types Packs/Day Years Used Date Smoking Tobacco: Never Assessed Comments Unknown Sex and Gender Information Value Date Recorded Sex Assigned at Not on file Legal Sex Female 2:56 AM SALVAGE CUTTER Gender Identity Not on file Sexual Orientation Not on file documented as of this encounter Plan of Treatment Not on file documented as of this encounter Visit Diagnoses Not on filedocumented in this encounter Additional Health Concerns Infection Onset Date Last Indicated Resolved Time R/O COVID-19 09/16/2020 09/16/2020 09/16/2020 11:3 5 PM SALVAGE CUTTER COVID-19 09/17/2020 09/17/2020 10/07/2020 8:08 PM SALVAGE CUTTER documented as of this encounter Care Teams Police Pilot Relationship Specialty Start Date End Date Roverto Arnold MD [address] [place] [address] PCP - General 12/10/09 documented as of this encounter
--- OUTSIDE RECORDS SUMMARY | 2025-07-12 04:43 | XMS_ITS | Encounter Summary ---
Author Organization [facility] Address [address] [place] [address] Care Team Providers Care Manager Academic Name Role Phone Roverto Arnold MD Primary Care Provider [phone] Encounter Details Date Type Department Care Team (Latest Contact Info) Description 12/20/2000 Outpatient Historical [facility] Cardiology- [place] [address] [place] [address] Charli Barahona MD NO ADDRESS ON FILE Other and unspecified angina pectoris (Primary Dx); Other specified forms of chronic ischemic heart disease; Mixed hyperlipidemia Social History Tobacco Use Types Packs/Day Years Used Date Smoking Tobacco: Never Assessed Comments Unknown Sex and Gender Information Value Date Recorded Sex Assigned at Not on file Legal Sex Female 2:56 AM COMPLEX DIRECTOR Gender Identity Not on file Sexual [...] COVID-19 09/16/2020 09/16/2020 09/16/2020 11:3 5 PM COMPLEX DIRECTOR COVID-19 09/17/2020 09/17/2020 10/07/2020 8:08 PM COMPLEX DIRECTOR documented as of this encounter Care Teams Manager Academic Relationship Specialty Start Date End Date Roverto Arnold MD [address] [place] [address] PCP - General 12/10/09 documented as of this encounter
--- OUTSIDE RECORDS SUMMARY | 2025-07-12 04:43 | XMS_ITS | Encounter Summary ---
Author Organization [facility] Address [address] [place] [address] Phone Care Team Providers Care Diathermy Equipment Repairer Name Role Phone Marie Askew MD Primary Care Provider [phone] Encounter Details Date Type Department Care Team ([facility] Contact Info) Description 02/11/2019 Orders Only [facility] [address] [facility] [address] [place] [address] Aaron Ugarte MD [address] [place] [address] Chronic kidney disease, not otherwise [...] Upcoming Encounters Date Type Department Care Team ([facility] Contact Info) Description 11/27/2025 2:50 PM AD COPY WRITER Office Visit [facility] [address] [place], [place] [address] Aaron Ugarte MD [address] [place] [address] documented as of this encounter [...] [facility] - 03/01/2019 7:57 AM CDT COORDINATOR OF GENETIC SERVICES labs [facility] [place] [address] [address] [place] [address] Lacemaker: Mick Reynolds DO MPH CLIA: [id number] us Jana Melvin [facility] BLOOD ORDERABLES Jessica story Result [facility] documented in this encounter Visit Diagnoses Diagnosis Chronic kidney disease, not otherwise specified documented in this encounter Care Teams Diathermy Equipment Repairer Relationship Specialty Start Date End Date Marie Askew MD [address] [place] [address] [place] [address] PCP - General Nurse Practitioner 03/05/22 documented as of this encounter
--- OUTSIDE RECORDS SUMMARY | 2025-07-12 04:43 | XMS_ITS | Encounter Summary ---
Author Organization [facility] Address [address] [place] [address] Care Team Providers Care Colorist Formulator Name Role Phone Roverto Arnold MD Primary Care Provider [phone] Reason for Referral * Outpatient Services (Routine) - Closed Specialty Diagnoses / Procedures Referred By Contac t Referred To Contact Cardiology Diagnoses Carotid artery bruit Coronary artery disease Procedures US CAROTID DOPPLER Marie Askew NP [address] [place] [address] Phone: tel: fax: [facility] Cardiovascular Services [address] [place] [address] Phone: tel: fax: Referral ID Status Reason Start Date Expiration Date Visits Re quested Visits Authorized [id number] Closed 07/29/2011 07/28/2012 1 1 * Outpatient Services (Routine) - Closed Specialty Diagnoses / Procedures Referred By Contac t Referred To Contact Diagnoses Shoulder pain Procedures MRI SHOULDER WO CONTRAST RIGHT Marie Askew NP [address] [place] [address] Phone: tel: fax: Referral ID Status Reason Start Date Expiration Date Visits Re quested Visits Authorized [id number] Closed 07/29/2011 07/28/2012 1 1 Encounter Details Date Type Department Care Team (Latest Contact Info) Description 07/29/2011 Ancillary Orders [facility] Pre-Registration [place] CALL TO MAKE APPOINTMENT ONLY [address] [place] [address] Marie Askew NP [address] [place] [address] Shoulder pain; Decreased range of motion of [...] on file Legal Sex Female 2:56 AM REPAIR TECH Gender Identity Not on file Sexual Orientation [...] and correlate clinically. tjb - uploaded from [employer]- Narrative 08/11/2011 2:49 PM CDT Exam: MRI [...] and correlate clinically. tjradha - uploaded from [employer]- us Marie Askew NP MR ORDERABLES Final Res ult * US CAROTID DOPPLER (08/11/2011 10:55 AM CDT) Anatomical Region Laterality Modality Neck Ultrasound 08/11/2011 9:39 AM CDT Narrative 08/11/2011 10:58 AM CDT [facility] Noninvasive Vascular Laboratory [address] [place] [address] Noninvasive Vascular Lab Cerebrovascular Exam Carotid Duplex Patient: Yadira Cruz Study ID: US CAROTID DOPPL Gender: F : 1945 Age: 65 Room: Height: Weight: BSA: Pt status: Outpatient Study Date: 08/11/2011 Study Time: 09:39 AM BSA: Ordering: Rosa Elena Askew Interpreting:Ned Vega MD Munitions Handler Supervisor: Alma Coffey RVT History: A bruit of [...] - Left vertebral - 0.43m/sec Antegrade flow [facility] is accredited with the Intersocietal Commission for the Accreditation of Vascular Laboratories (ICAVL) Prepared and Electronically Authenticated Ned Vega MD Confirmed 08/11/2011 10:58 Procedure Note Ned Vega MD - 08/11/2011 [facility] Noninvasive Vascular Laboratory [address] [place] [address] Noninvasive Vascular Lab Cerebrovascular Exam Carotid Duplex Patient: Yadira Cruz Study ID: US CAROTID DOPPL Gender: Jerad : 1945 Age: 65 Room: Height: Weight: BSA: Pt status: Outpatient Study Date: 08/11/2011 Study Time: 09:39 AM BSA: Ordering: Rosa Elena Askew Interpreting:Ned Vega MD Munitions Handler Supervisor: Alma Coffey RVT History: A bruit of [...] - Left vertebral - 0.43m/sec Antegrade flow [facility] is accredited with the Intersocietal [...] Coronary atherosclerosis of unspecified type of vessel, jamul or graft Carotid artery bruit Other symptoms involving cardiovascular system Coronary artery disease Coronary atherosclerosis of unspecified type of vessel, jamul or graft Shoulder pain Pain in joint, shoulder region documented in this encounter Additional Health Concerns Infection Onset Date Last Indicated Resolved Time R/O COVID-19 09/16/2020 09/16/2020 09/16/2020 11:3 5 PM REPAIR TECH COVID-19 09/17/2020 09/17/2020 10/07/2020 8:08 PM REPAIR TECH documented as of this encounter Care Teams Colorist Formulator Relationship Specialty Start Date End Date Roverto Arnold MD [address] [place] [address] PCP - General 12/10/09 documented as of this encounter
--- OUTSIDE RECORDS SUMMARY | 2025-07-12 04:43 | XMS_ITS | Encounter Summary ---
Author Organization [facility] Address [address] [place] [address] Care Team Providers Care Program Director/Air Personality Name Role Phone Roverto Arnold MD Primary Care Provider [phone] Reason for Referral * Radiology Services (Routine) - Closed Specialty Diagnoses / Procedures Referred By Contac t Referred To Contact Radiology Diagnoses Hematoma Procedures US PELVIS LIMITED NON OB US RIGHT UPR QUADRANT Bird Hernandez MD Phone: tel: fax: [facility] Ultrasound [address] [place] [address] Phone: tel: fax: Referral ID Status Reason Start Date Expiration Date Visits Re quested Visits Authorized [id number] Closed 12/26/2018 01/26/2020 1 1 DATA ARCHITECT Encounter Details Date Type Department Care Team (Late st Contact Info) Description 12/26/2018 Ancillary Orders [facility] Cardiology- [place] [address] [place] [address] Bird Hernandez MD [address] [facility] [address] [place] [address] Hematoma Social History Tobacco Use Types Packs/Day Years Used Date Smoking Tobacco: Former Cigarettes 4 30 0 07/06/1958 - 07/06/1988 Smokeless Tobacco: Never Alcohol Use Standard Drinks/Week Comments No 0 (1 standard drink = 0.6 oz pur e alcohol) Comments No Sex and Gender Information Value Date Recorded Sex Assigned at Not on file Legal Sex Female 2:56 AM ETL DATA ARCHITECT Gender Identity Not on file Sexual Orientation Not on file Occupation Industry Job Start Date Job End Date Not on file Not on file Not on file Not on file documented as of this encounter Plan of Treatment Not on file documented as of this encounter Results * US PELVIS LIMITED NON OB (12/26/2018 4:39 PM ETL DATA ARCHITECT) Anatomical Region Laterality Modality Pelvis Ultrasound 12/26/2018 4:39 PM ETL DATA ARCHITECT Impressions 12/27/2018 11:36 AM ETL DATA ARCHITECT IMPRESSION: 7.6 x 5 x 5.2 cm likely resolving hematoma within the right lower quadrant. [id number] Narrative 12/27/2018 11:36 AM ETL DATA ARCHITECT US PELVIS LIMITED NON OB Reason For [...] resolving hematoma within the right lower quadrant. [id number] us Bird Hernandez MD ORDERABLES Final Result documented in this encounter Visit Diagnoses Diagnosis Hematoma Contusion of unspecified site Hematoma Contusion of unspecified site documented in this encounter Additional Health Concerns Infection Onset Date Last Indicated Resolved Time R/O COVID-19 09/16/2020 09/16/2020 09/16/2020 11:3 5 PM ETL DATA ARCHITECT COVID-19 09/17/2020 09/17/2020 10/07/2020 8:08 PM ETL DATA ARCHITECT documented as of this encounter Care Teams Program Director/Air Personality Relationship Specialty Start Date End Date Roverto Arnold MD [address] [place] [address] PCP - General 12/10/09 documented as of this encounter
--- OUTSIDE RECORDS SUMMARY | 2025-07-12 04:43 | XMS_ITS | Clinical Summary ---
Author Organization [facility] Address [address] [place] [address] Phone Care Team Providers Care Pneumatic Tool Operator Name Role Phone Roverto Arnold MD Primary Care Provider [phone] Allergies Active Allergy Reactions Criticality Noted Date [...] (02/19/2021): Added automatically from request for surgery [id number] Unstable angina 12/06/2018 06/10/2019 Abnormal coronary angiogram [...] on file Legal Sex Female 12:39 PM COMPUTER CONSULTANT Gender Identity Not on file Sexual Orientation Not on file Last Filed Vital Signs Vital Sign Reading Time Taken Comments Blood Pressure 105/42 08/09/2023 2:10 PM CDT Pulse 62 08/09/2023 2:10 PM CDT Temperature 36.1 C (97 F) 11/14/2022 7:53 AM COMPUTER CONSULTANT Respiratory Rate 18 08/09/2023 2:10 PM CDT [...] MONTHS 02/28/20242022, 05/10/2019, 12/06/2018, Additional history exists [place] Preventative Visit/Annual Wellness Visit 10/25/2024 INFLUENZA VACCINE (#1) 2025 9, 05/25/2017, 06/25/2016, Additional history exists OSTEOPOROSIS SCREENING 05/27/2026 05/27/2021 COLORECTAL SCREENING Discontinued 08/09/2023, 08/09/20 23 Colorectal Cancer Screening Discontinued FIT-DNA Q 3 years Discontinued FIT/FOBT Q 1 year Discontinued Flex Sig/CT Colonography Q 5 years Discontinued Medical Devices Implanted Type Area Metal Extrusion Supervisor Device Identifier Shelf Expiration Date Model / Serial / Lot Sealant Progel Pleural 4ml [id number] - [id number] Implanted:Qt y: 1 on 02/20/2013 by Fabio Islas MD Biological N/A: Chest CR BARD- [employer] 09/22/2014 [id number] / / [id number] Sealant Mynx Take Off Worker 6-7fr [id number] - [id number] Implanted: (Quantity not on file) Closure Device Right: Groin ACCESS CLOSURE 01/22/2022 [id number] / / [id number] Closure Perclose Proglide 15639 - [id number] Implanted:Qt y: 1 on 02/05/2021 Closure Device Right: Groin DUDLEY- VASC DEVICE 10/24/2022 [id number] / / [id number] Boles Ptfe Thck 1.6mmx2.5x10 .2cm [id number] - [id number] Implanted:Qt y: 1 on 02/20/2013 by Fabio Islas MD Graft N/A: Chest CR BARD- GUILLERMO VASC [employer] 08/22/2017 [id number] / / [id number] Boles Ptfe Thck 1.6mmx2.5x2. 5cm [id number] - [id number] Implanted:Qt y: 1 on 02/20/2013 Graft CR BARD- GUILLERMO VASC [employer] 12/22/2017 [id number] / / [id number] Sealant Floseal W/ Adptr 10ml [id number] - [id number] Implanted:Qt y: 1 on 02/20/2013 by Fabio Islas MD Sealant N/A: Chest LOPES- [employer] 02/20/2014 [id number] / / [id number] Sealant Floseal W/ Adptr 10ml [id number] - [id number] Implanted:Qt y: 1 on 02/20/2013 by Niranjan Reilly MD Sealant LOPES- [employer] 04/23/2014 [id number] / / [id number] Premier 2.25x12 Implanted: (Quantity not on file) Stent Stent Synergy Mr 4.0x28mm Drug Elut [id number] - [id number] Implanted: (Quantity not on file) Stent Right: Coronary [employer]UL[employer] 09/12/2021 [id number] / / [id number] Stent Synergy Mr 4.0x12mm Drug Elut [id number] 00 - [id number] Implanted:Qt y: 1 on 02/05/2021 by Bird Hernandez MD Stent Right: Coronary [employer] 08/27/2022 [id number] / / [id number] Stent Synergy Mr 4.0x8mm Drug Elut [id number] 00 - [id number] Implanted:Qt y: 1 on 02/05/2021 by Bird Hernandez MD Stent Left: Coronary [employer] 08/05/2022 [id number] / / [id number] Stent Synergy Mr 2.5x16mm Drug Elut [id number] 50 - [id number] Implanted:Qt y: 1 on 02/05/2021 by Bird Hernandez MD Stent Left: Coronary [employer] 09/11/2022 [id number] / / [id number] Marker Graft 1001-83 - [id number] Implanted:Qt y: 1 on 02/20/2013 by Fabio Islas MD N/A: Chest ROMAN INT 05/22/2016 1001-83 / / [id number] Explanted Type Area Metal Extrusion Supervisor Device Identifier Shelf Expiration Date Model / Serial / Lot Stent Graftmaster 4.5x19 Rx [id number] - [id number] Implanted:Qty: 1 Explanted:Qty: 1 on 04/26/2020 Stent Right: Coronary DUDLEY- VASC DEVICE 02/21/2021 [id number] Description:inserted and rem chayo undeployed and intact [...] Chavis MD - 08/09/2023 1:56 PM CDT [facility] GI Patient Name: Yadira [...] Scope Out: 1:52:34 PM [address] [place], [place] us Barrera Chavis MD GI PROCEDURE ORDERA BLES [...] clinical management available online at [email or web address] [employer] for Select DXA and the left Femoral [...] T-score: -1.0/-1.4 Adult Z-score: 0.9/0.5 Procedure Note Bird Camarillo MD - 05/27/2021 DEXA Evaluation of the [...] clinical management available online at [email or web address] [employer] for Select DXA and the left Femoral Neck BMD value. Marie Askew NP DIAGNOSTIC IMAGING ORDERA BLES Final Result * (ABNORMAL) LIPID PANEL (02/04/2021 8:33 AM CDT) [facility] CHOLESTEROL 231(H) <200 mg/dL 02/04/2021 9:30 PM CDT [facility] TRIGLYCERIDE 493(H) <150 mg/dL 02/04/2021 9:30 PM CDT [facility] HDL 40 40 - 59 mg/dL 02/04/2021 9:30 PM CDT [facility] LDL CALCULATED ^ 02/04/2021 9:30 PM CDT [facility] Comment:Calculated LDL is no t accurate when the Triglyceride value exceeds 400. NON-HDL CHOLESTEROL 191(H) <130 mg/dL 02/04/2021 9:30 PM CDT [facility] Blood Venipuncture / Unknown 02/04/2021 8:33 AM CDT 02/04/2021 8:14 PM CDT Narrative [facility] - 02/04/2021 9:30 PM CDT TOTAL CHOLESTEROL [...] Annamaria Lanza NP CHEMISTRY ORDERABLES Final Result [facility] CLIA# [id number] [facility] [place] [address] * HEMOGLOBIN A1C (05/10/2019) ABSTRACTED HGB A1C 7.1 EXTERNAL LAB HEMOGLOBIN A1C ^ 4.7 - 6.4 % EXTERNAL LAB HEMOGLOBIN A1C EXTERNAL LAB GLUCOSE, MEAN BLOOD EXTERNAL LAB Blood 05/10/2019 Narrative EXTERNAL LAB - 05/11/2019 This order was created through External Result Entry Mariejacques Askew NP CHEMISTRY ORDERABLES Jessica l Result EXTERNAL LAB from Last 3 Months or Most Recently Relevant to Health Maintenance Insurance MEDICAID [facility] DUAL COMPLETE PPO [facility] [id number] * Guarantor: YADIRA EVANS Account Type Relation to Patient Date of Phone Billing Address Personal/Family [address] [place] [address] RX INFOCROSSING Medicaid RX [facility] Medicare Part D Advance Directives For more information, please contact: [phone] * Full Code (Latest Code Status on [...] 9:42 PM 11/13/2022 11:21 AM Care Teams Pneumatic Tool Operator Relationship Specialty Start Date End Date Roverto Arnold MD [address] [place] [address] PCP - General 12/10/09
--- OUTSIDE RECORDS SUMMARY | 2025-07-12 04:43 | XMS_ITS | Encounter Summary ---
Author Organization [facility] Address [address] [place] [address] Care Team Providers Care Machine Bobbin Winder Name Role Phone Roverto Arnold MD Primary Care Provider [phone] Encounter Details Date Type Department Care Team (Latest Contact Info) Description 07/23/1998 Outpatient Historical [facility] Family Medicine [place] [facility] [address] [place] [address] Colten Mayer MD NO ADDRESS ON FILE Other and unspecified hyperlipidemia (Primary Dx) Social History Tobacco Use Types Packs/Day Years Used Date Smoking Tobacco: Never Assessed Comments Unknown Sex and Gender Information Value Date Recorded Sex Assigned at Not on file Legal Sex Female 2:56 AM DOUBLE END SEWER Gender Identity Not on file Sexual Orientation Not on file documented as of this encounter Plan of Treatment Not on file documented as of this encounter Visit Diagnoses Diagnosis Other and unspecified hyperlipidemia- Primary documented in this encounter Additional Health Concerns Infection Onset Date Last Indicated Resolved Time R/O COVID-19 09/16/2020 09/16/2020 09/16/2020 11:3 5 PM DOUBLE END SEWER COVID-19 09/17/2020 09/17/2020 10/07/2020 8:08 PM DOUBLE END SEWER documented as of this encounter Care Teams Machine Bobbin Winder Relationship Specialty Start Date End Date Roverto Arnold MD [address] [place] [address] PCP - General 12/10/09 documented as of this encounter
--- OUTSIDE RECORDS SUMMARY | 2025-07-12 04:43 | XMS_ITS | Clinical Summary ---
Author Organization [facility] Address [address] [place] [address] Care Team Providers Care Acds Block 1 Operator Name Role Phone Marie Askew MD Primary Care Provider [phone] Allergies Active Allergy Reactions Criticality Noted Date [...] TWICE DAILY NEEDED 5 Active nystatin (MYCOSTATIN) 673892 UNIT/ML suspension 5 Active pravastatin (PRAVACHOL) 20 [...] Description 05/30/2025 4:00 PM CDT Office Visit [facility] [address] [place] [address] Jana Melvin NP Stage 3b chronic kidney disease (HCC) (Primary Dx); Type 2 diabetes mellitus with diabetic chronic kidney disease (HCC); 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) 05/21/2025 Documentation Only [facility] [address] [place] [address] Isabella Rojas MA 05/14/2025 Telephone [facility] [address] [place] [address] Aaron Ugarte MD 05/14/2025 Documentation Only [facility] [address] [place] [address] Desirae Weiner from Last 3 Months Immunizations [...] st Contact Info) Description 11/27/2025 2:50 PM IP LITIGATION ASSOCIATE Office Visit [facility] [address] [place], [place] [address] Aaron Ugarte MD [address] [facility] [address] [place] [address] Health Maintenance Due Date Last [...] 05/21/2025 Narrative PRINT/EXTERNAL (NON-INTERFACED LABS) - 05/21/2025 [facility] [address] [place] [address] Jaan Melvin TOWER CONTROL OPERATOR LAB URINE ORDERABLES Jessica story Result PRINT/EXTERNAL [...] 05/21/2025 Narrative PRINT/EXTERNAL (NON-INTERFACED LABS) - 05/21/2025 [facility] [address] [place] [address] Jana Melvin TOWER CONTROL OPERATOR LAB BLOOD ORDERABLES Jessica l Result PRINT/EXTERNAL (NON-INTERFACED LABS) * PTH, intact (05/21/2025) Parathyroid Hormone, Intact 41 pg/mL PRINT/OIL BAY TECHNICIAN AL (NON-INTERFACE D LABS) Blood Venous blood / Unknown 05/21/2025 Narrative PRINT/EXTERNAL (NON-INTERFACED LABS) - 05/21/[address] [address] Jana Melvin TOWER CONTROL OPERATOR LAB BLOOD ORDERABLES Jessica l Result PRINT/EXTERNAL [...] PRIN T/EXTERNAL (NON-INTERFACE D LABS) eGFR Non-Afr Finnish 35 PRINT/EXTERNAL (NON-INTERFACE D LABS) Blood Venous blood / Unknown 05/21/2025 Narrative PRINT/EXTERNAL (NON-INTERFACED LABS) - 05/21/[address] [address] Jana Melvin TOWER CONTROL OPERATOR LAB BLOOD ORDERABLES Jessica l Result PRINT/EXTERNAL (NON-INTERFACED LABS) * Hemoglobin A1C (08/30/2023) Hemoglobin A1C 7.0 Blood specimen (specimen) Venous blood / Unknown 08/30/2023 Narrative Isabella Rojas MA - 08/30/2023 [facility] External Provider LAB BLOOD ORDERABLES Final Result from Last 3 Months or Most Recently Relevant to Health Maintenance Insurance Medicaid [place] ([id number]) Dual Complete Choice [facility] [place] Care Teams Acds Block 1 Operator Relationship Specialty Start Date End Date Marie Askew MD [address] [place] [address] PCP - General Nurse Practitioner 03/05/22
--- OUTSIDE RECORDS SUMMARY | 2025-07-12 04:43 | XMS_ITS | Encounter Summary ---
Author Organization [facility] Address [address] [place] [address] Care Team Providers Care Computer Support Specialist Name Role Phone Roverto Arnold MD Primary Care Provider [phone] Encounter Details Date Type Department Care Team (Latest Contact Info) Description 07/20/2003 Outpatient Historical [facility] Cardiology- [place] [address] [place] [address] Claire-Yoana Sow, ALEX [address] [facility] [address] [place] [address] PRECORDIAL PAIN (Primary Dx); CORON ATHEROSCL [place] CORON VESSEL; MIXED HYPERLIPIDEMIA Social History Tobacco Use Types Packs/Day Years Used Date Smoking Tobacco: Never Assessed Comments Unknown Sex and Gender Information Value Date Recorded Sex Assigned at Not on file Legal Sex Female 2:56 AM CONTRACT DRIVER Gender Identity Not on file Sexual Orientation Not on file documented as of this encounter Plan of Treatment Not on file documented as of this encounter Visit Diagnoses Diagnosis Precordial pain- Primary Coronary atherosclerosis of [place] coronary artery Mixed hyperlipidemia documented in this encounter Additional Health Concerns Infection Onset Date Last Indicated Resolved Time R/O COVID-19 09/16/2020 09/16/2020 09/16/2020 11:3 5 PM CONTRACT DRIVER COVID-19 09/17/2020 09/17/2020 10/07/2020 8:08 PM CONTRACT DRIVER documented as of this encounter Care Teams Computer Support Specialist Relationship Specialty Start Date End Date Roverto Arnold MD [address] [place] [address] PCP - General 12/10/09 documented as of this encounter
--- OUTSIDE RECORDS SUMMARY | 2025-07-12 04:43 | XMS_ITS | Encounter Summary ---
Author Organization [facility] Address [address] [place] [address] Care Team Providers Care Funeral Car Chauffeur Name Role Phone Roverto Arnold MD Primary Care Provider [phone] Encounter Details Date Type Department Care Team (Latest Contact Info) Description 07/28/2001 Outpatient Historical [facility] Cardiology- [place] [address] [place] [address] Charli Barahona MD NO ADDRESS ON FILE Other and unspecified angina pectoris (Primary Dx); Other specified forms of chronic ischemic heart disease; Mixed hyperlipidemia Social History Tobacco Use Types Packs/Day Years Used Date Smoking Tobacco: Never Assessed Comments Unknown Sex and Gender Information Value Date Recorded Sex Assigned at Not on file Legal Sex Female 2:56 AM INTEGRATION DEVELOPER Gender Identity Not on file Sexual [...] COVID-19 09/16/2020 09/16/2020 09/16/2020 11:3 5 PM INTEGRATION DEVELOPER COVID-19 09/17/2020 09/17/2020 10/07/2020 8:08 PM INTEGRATION DEVELOPER documented as of this encounter Care Teams Funeral Car Chauffeur Relationship Specialty Start Date End Date Roverto Arnold MD [address] [place] [address] PCP - General 12/10/09 documented as of this encounter
--- OUTSIDE RECORDS SUMMARY | 2025-07-12 04:43 | XMS_ITS | Encounter Summary ---
Author Organization [facility] Address [address] [facility] [address]: [place] [address] Care Team Providers Care Ballistics Expert Name Role Phone Roverto Arnold MD Primary Care Provider [phone] Encounter Details Date Type Department Care Team (Late st Contact Info) Description 09/30/2001 Outpatient Historical Denise Maher Social History Tobacco Use Types Packs/Day Years Used Date Smoking Tobacco: Never Assessed Comments Unknown Sex and Gender Information Value Date Recorded Sex Assigned at Not on file Legal Sex Female 2:56 AM FINANCIAL REPORT SERVICE SALES AGENT Gender Identity Not on file Sexual Orientation Not on file documented as of this encounter Plan of Treatment Not on file documented as of this encounter Visit Diagnoses Not on filedocumented in this encounter Additional Health Concerns Infection Onset Date Last Indicated Resolved Time R/O COVID-19 09/16/2020 09/16/2020 09/16/2020 11:3 5 PM FINANCIAL REPORT SERVICE SALES AGENT COVID-19 09/17/2020 09/17/2020 10/07/2020 8:08 PM FINANCIAL REPORT SERVICE SALES AGENT documented as of this encounter Care Teams Ballistics Expert Relationship Specialty Start Date End Date Roverto Arnold MD [address] [facility] [place] [address] PCP - General 12/10/09 documented as of this encounter
--- OUTSIDE RECORDS SUMMARY | 2025-07-12 04:43 | XMS_ITS | Encounter Summary ---
Author Organization [facility] Address [address]: [place] [address] Care Team Providers Care Fence Post Cutter Name Role Phone Roverto Arnold MD Primary Care Provider [phone] Encounter Details Date Type Department Care Team (Late st Contact Info) Description 01/27/2002 Outpatient Historical Charli Barahona MD NO ADDRESS ON FILE Social History Tobacco Use Types Packs/Day Years Used Date Smoking Tobacco: Never Assessed Comments Unknown Sex and Gender Information Value Date Recorded Sex Assigned at Not on file Legal Sex Female 2:56 AM BENDING ROLL HAND Gender Identity Not on file Sexual Orientation Not on file documented as of this encounter Plan of Treatment Not on file documented as of this encounter Visit Diagnoses Not on filedocumented in this encounter Additional Health Concerns Infection Onset Date Last Indicated Resolved Time R/O COVID-19 09/16/2020 09/16/2020 09/16/2020 11:3 5 PM BENDING ROLL HAND COVID-19 09/17/2020 09/17/2020 10/07/2020 8:08 PM BENDING ROLL HAND documented as of this encounter Care Teams Fence Post Cutter Relationship Specialty Start Date End Date Roverto Arnold MD [address] [place] [facility] [place] [address] PCP - General 12/10/09 documented as of this encounter
--- OUTSIDE RECORDS SUMMARY | 2025-07-12 04:43 | XMS_ITS | Encounter Summary ---
Author Organization [facility] Address [address] [place] [address] Care Team Providers Care Shredded Filler Hopper Feeder Name Role Phone Roverto Arnold MD Primary Care Provider [phone] Encounter Details Date Type Department Care Team (Latest Contact Info) Description 08/20/2004 Outpatient Historical [facility] [address] [place] [address] Markie Ramírez MD NO ADDRESS ON FILE TRANSIENT CEREBRAL ISCHEMIA NOS (Primary Dx) Social History Tobacco Use Types Packs/Day Years Used Date Smoking Tobacco: Never Assessed Comments Unknown Sex and Gender Information Value Date Recorded Sex Assigned at Not on file Legal Sex Female 2:56 AM FAMILY SERVICE WORKER Gender Identity Not on file Sexual Orientation Not on file documented as of this encounter Plan of Treatment Not on file documented as of this encounter Visit Diagnoses Diagnosis Unspecified transient cerebral ischemia- Primary documented in this encounter Additional Health Concerns Infection Onset Date Last Indicated Resolved Time R/O COVID-19 09/16/2020 09/16/2020 09/16/2020 11:3 5 PM FAMILY SERVICE WORKER COVID-19 09/17/2020 09/17/2020 10/07/2020 8:08 PM FAMILY SERVICE WORKER documented as of this encounter Care Teams Shredded Filler Hopper Feeder Relationship Specialty Start Date End Date Roverto Arnold MD [address] [place] [address] PCP - General 12/10/09 documented as of this encounter
--- OUTSIDE RECORDS SUMMARY | 2025-07-12 04:43 | XMS_ITS | Encounter Summary ---
Author Organization [facility] Address [address] [place] [address] Care Team Providers Care Filter Press Tender Head Name Role Phone Roverto Arnold MD Primary Care Provider [phone] Encounter Details Date Type Department Care Team (Latest Contact Info) Description 08/20/2004 Outpatient Historical [facility] General and Trauma Surgery-[address] [place] [address] Ted Chappell MD [address] [place] [phone] CAROTID ART OCCL-NO INFARCT (Primary Dx); HEADACHE Social History Tobacco Use Types Packs/Day Years Used Date Smoking Tobacco: Never Assessed Comments Unknown Sex and Gender Information Value Date Recorded Sex Assigned at Not on file Legal Sex Female 2:56 AM MANUFACTURING ENGINEERING DIRECTOR Gender Identity Not on file Sexual [...] COVID-19 09/16/2020 09/16/2020 09/16/2020 11:3 5 PM MANUFACTURING ENGINEERING DIRECTOR COVID-19 09/17/2020 09/17/2020 10/07/2020 8:08 PM MANUFACTURING ENGINEERING DIRECTOR documented as of this encounter Care Teams Filter Press Tender Head Relationship Specialty Start Date End Date Roverto Arnold MD [address] [place] [address] PCP - General 12/10/09 documented as of this encounter
--- OUTSIDE RECORDS SUMMARY | 2025-07-12 04:43 | XMS_ITS | Encounter Summary ---
Author Organization [facility] Address [address] Stephen: [place] [address] Care Team Providers Care Phone Manager Name Role Phone Roverto Arnold MD Primary Care Provider [phone] Encounter Details Date Type Department Care Team (Late st Contact Info) Description 01/17/2002 Outpatient Historical Yuan Plata MD NO ADDRESS ON FILE Social History Tobacco Use Types Packs/Day Years Used Date Smoking Tobacco: Never Assessed Comments Unknown Sex and Gender Information Value Date Recorded Sex Assigned at Not on file Legal Sex Female 2:56 AM COMPLIANCE TECHNICIAN Gender Identity Not on file Sexual Orientation Not on file documented as of this encounter Plan of Treatment Not on file documented as of this encounter Visit Diagnoses Not on filedocumented in this encounter Additional Health Concerns Infection Onset Date Last Indicated Resolved Time R/O COVID-19 09/16/2020 09/16/2020 09/16/2020 11:3 5 PM COMPLIANCE TECHNICIAN COVID-19 09/17/2020 09/17/2020 10/07/2020 8:08 PM COMPLIANCE TECHNICIAN documented as of this encounter Care Teams Phone Manager Relationship Specialty Start Date End Date Roverto Arnold MD [address] [place] [facility] [place] [address] PCP - General 12/10/09 documented as of this encounter
--- OUTSIDE RECORDS SUMMARY | 2025-07-12 04:43 | XMS_ITS | Encounter Summary ---
Author Organization [facility] Address [address] [place] [address] Care Team Providers Care Boom Stick Man Name Role Phone Roverto Arnlod MD Primary Care Provider [phone] Encounter Details Date Type Department Care Team (Latest Contact Info) Description 11/22/[address] [facility] Family Medicine [facility] [address] [address] [address] [place] [address] Colten Mayer MD NO ADDRESS ON FILE Chest pain, unspecified (Primary Dx); Other and unspecified angina pectoris Social History Tobacco Use Types Packs/Day Years Used Date Smoking Tobacco: Never Assessed Comments Unknown Sex and Gender Information Value Date Recorded Sex Assigned at Not on file Legal Sex Female 2:56 AM COMMODITY BUYER Gender Identity Not on file Sexual Orientation Not on file documented as of this encounter Plan of Treatment Not on file documented as of this encounter Visit Diagnoses Diagnosis Chest pain, unspecified- Primary Other and unspecified angina pectoris documented in this encounter Additional Health Concerns Infection Onset Date Last Indicated Resolved Time R/O COVID-19 09/16/2020 09/16/2020 09/16/2020 11:3 5 PM COMMODITY BUYER COVID-19 09/17/2020 09/17/2020 10/07/2020 8:08 PM COMMODITY BUYER documented as of this encounter Care Teams Boom Stick Man Relationship Specialty Start Date End Date Roverto Arnold MD [address] [place] [address] PCP - General 12/10/09 documented as of this encounter
--- OUTSIDE RECORDS SUMMARY | 2025-07-12 04:43 | XMS_ITS | Encounter Summary ---
Author Organization [facility] Address [address] [place] [address] Care Team Providers Care Air Saw Operator Name Role Phone Roverto Arnold MD Primary Care Provider [phone] Encounter Details Date Type Department Care Team (Latest Contact Info) Description 10/21/2003 Outpatient Historical [facility] [address] [place] [address] Jose G Talley MD [address] [place] [phone] DIABETES UNCOMPL ADULT-UNCONTRLLED (Primary Dx) Social History Tobacco Use Types Packs/Day Years Used Date Smoking Tobacco: Never Assessed Comments Unknown Sex and Gender Information Value Date Recorded Sex Assigned at Not on file Legal Sex Female 2:56 AM DIVE SUPERINTENDENT Gender Identity Not on file Sexual Orientation [...] COVID-19 09/16/2020 09/16/2020 09/16/2020 11:3 5 PM DIVE SUPERINTENDENT COVID-19 09/17/2020 09/17/2020 10/07/2020 8:08 PM DIVE SUPERINTENDENT documented as of this encounter Care Teams Air Saw Operator Relationship Specialty Start Date End Date Roverto Arnold MD [address] [place] [address] PCP - General 12/10/09 documented as of this encounter
--- OUTSIDE RECORDS SUMMARY | 2025-07-12 04:43 | XMS_ITS | Encounter Summary ---
Author Organization [facility] Address [address] [place] [address] Care Team Providers Care Financial Advocate Name Role Phone Roverto Arnold MD Primary Care Provider [phone] Encounter Details Date Type Department Care Team (Latest Contact Info) Description 11/21/2003 Outpatient Historical [facility] [address] [place] [address] Jose G Talley MD [address] [place] [phone] DIABETES UNCOMPL ADULT-UNCONTRLLED (Primary Dx) Social History Tobacco Use Types Packs/Day Years Used Date Smoking Tobacco: Never Assessed Comments Unknown Sex and Gender Information Value Date Recorded Sex Assigned at Not on file Legal Sex Female 2:56 AM SALES SUPPORT TECHNICIAN Gender Identity Not on file Sexual [...] 09/16/2020 09/16/2020 09/16/2020 11:3 5 PM SALES SUPPORT TECHNICIAN COVID-19 09/17/2020 09/17/2020 10/07/2020 8:08 PM SALES SUPPORT TECHNICIAN documented as of this encounter Care Teams Financial Advocate Relationship Specialty Start Date End Date Roverto Arnold MD [address] [place] [address] PCP - General 12/10/09 documented as of this encounter
--- OUTSIDE RECORDS SUMMARY | 2025-07-12 04:43 | XMS_ITS | Encounter Summary ---
Author Organization [facility] Address [address] [place] [address] Care Team Providers Care Data Reduction Technician Name Role Phone Roverto Arnold MD Primary Care Provider [phone] Encounter Details Date Type Department Care Team (Latest Contact Info) Description 04/05/2003 Outpatient Historical [facility] General and Trauma Surgery-[address] [place] [address] ABN AUDITORY PERCEPT NOS (Primary Dx) Social History Tobacco Use Types Packs/Day Years Used Date Smoking Tobacco: Never Assessed Comments Unknown Sex and Gender Information Value Date Recorded Sex Assigned at Not on file Legal Sex Female 2:56 AM POTABLE WATER TREATMENT OPERATOR Gender Identity Not on file Sexual Orientation Not on file documented as of this encounter Plan of Treatment Not on file documented as of this encounter Visit Diagnoses Diagnosis Abnormal auditory perception, unspecified- Primary documented in this encounter Additional Health Concerns Infection Onset Date Last Indicated Resolved Time R/O COVID-19 09/16/2020 09/16/2020 09/16/2020 11:3 5 PM POTABLE WATER TREATMENT OPERATOR COVID-19 09/17/2020 09/17/2020 10/07/2020 8:08 PM POTABLE WATER TREATMENT OPERATOR documented as of this encounter Care Teams Data Reduction Technician Relationship Specialty Start Date End Date Roverto Arnold MD [address] [place], [place] [address] PCP - General 12/10/09 documented as of this encounter
--- OUTSIDE RECORDS SUMMARY | 2025-07-12 04:43 | XMS_ITS | Encounter Summary ---
Author Organization [facility] Address [address] [place] [address] Care Team Providers Care Route Sales Manager Name Role Phone Roverto Arnold MD Primary Care Provider [phone] Encounter Details Date Type Department Care Team (Late st Contact Info) Description 09/01/2011 Ancillary Orders [facility] Orthopedics- [address] [place] [address] Darnell Lerma MD NO ADDRESS [...] on file Legal Sex Female 2:56 AM STUNNER Gender Identity Not on file Sexual Orientation Not on file documented as of this encounter Plan of Treatment Not on file documented as of this encounter Results * XR SHOULDER 2+ VW LEFT (09/01/2011 1:25 PM STUNNER) Anatomical Region Laterality Modality Upper Extremity Computed Radiogr aphy Narrative 09/05/2011 7:05 AM STUNNER Bilateral shoulder internal, external, and Y views [...] COVID-19 09/16/2020 09/16/2020 09/16/2020 11:3 5 PM STUNNER COVID-19 09/17/2020 09/17/2020 10/07/2020 8:08 PM STUNNER documented as of this encounter Care Teams Route Sales Manager Relationship Specialty Start Date End Date Roverto Arnold MD [address] [place] [address] PCP - General 12/10/09 documented as of this encounter
--- OUTSIDE RECORDS SUMMARY | 2025-07-12 04:43 | XMS_ITS | Encounter Summary ---
Author Organization [facility] Address [address] [place] [address] Care Team Providers Care Jet Worker Name Role Phone Roverto Arnold MD Primary Care Provider [phone] Encounter Details Date Type Department Care Team (Latest Contact Info) Description 01/26/2002 Outpatient Historical [facility] Cardiology- [place] [address] [place] [address] Charli Barahona MD NO ADDRESS ON FILE ANGINA PECTORIS NEC/NOS (Primary Dx); CHR ISCHEMIC HRT DIS NEC; Pure hypercholesterolem Social History Tobacco Use Types Packs/Day Years Used Date Smoking Tobacco: Never Assessed Comments Unknown Sex and Gender Information Value Date Recorded Sex Assigned at Not on file Legal Sex Female 2:56 AM CONVERTER SKIMMER Gender Identity Not on file Sexual Orientation [...] COVID-19 09/16/2020 09/16/2020 09/16/2020 11:3 5 PM CONVERTER SKIMMER COVID-19 09/17/2020 09/17/2020 10/07/2020 8:08 PM CONVERTER SKIMMER documented as of this encounter Care Teams Jet Worker Relationship Specialty Start Date End Date Roverto Arnold MD [address] [place] [address] PCP - General 12/10/09 documented as of this encounter
--- OUTSIDE RECORDS SUMMARY | 2025-07-12 04:44 | XMS_ITS | Encounter Summary ---
Author Organization [facility] Address [address] [place] [address] Care Team Providers Care Dam Operator Name Role Phone Roverto Arnold MD Primary Care Provider [phone] Encounter Details Date Type Department Care Team (Latest Contact Info) Description 01/29/2003 Outpatient Historical [facility] Cardiology- [place] [address] [place] [address] Charli Barahona MD NO ADDRESS ON FILE ANGINA PECTORIS NEC/NOS (Primary Dx); CHR ISCHEMIC HRT DIS NEC; MIXED HYPERLIPIDEMIA Social History Tobacco Use Types Packs/Day Years Used Date Smoking Tobacco: Never Assessed Comments Unknown Sex and Gender Information Value Date Recorded Sex Assigned at Not on file Legal Sex Female 2:56 AM GENERATION MECHANIC HELPER Gender Identity Not on file Sexual [...] COVID-19 09/16/2020 09/16/2020 09/16/2020 11:3 5 PM GENERATION MECHANIC HELPER COVID-19 09/17/2020 09/17/2020 10/07/2020 8:08 PM GENERATION MECHANIC HELPER documented as of this encounter Care Teams Dam Operator Relationship Specialty Start Date End Date Roverto Arnold MD [address] [place] [address] PCP - General 12/10/09 documented as of this encounter
--- OUTSIDE RECORDS SUMMARY | 2025-07-12 04:44 | XMS_ITS | Encounter Summary ---
Author Organization [facility] Address [address] [place] [address] Care Team Providers Care Talent Acquisition Partner Name Role Phone Roverto Arnold MD Primary Care Provider [phone] Encounter Details Date Type Department Care Team (Latest Contact Info) Description 01/30/2003 Outpatient Historical [facility] General and Trauma Surgery-[address] [place] [address] CAROTID ART OCCL-NO INFARCT (Primary Dx) Social History Tobacco Use Types Packs/Day Years Used Date Smoking Tobacco: Never Assessed Comments Unknown Sex and Gender Information Value Date Recorded Sex Assigned at Not on file Legal Sex Female 2:56 AM SALES ADVISOR Gender Identity Not on file Sexual Orientation [...] 09/16/2020 09/16/2020 09/16/2020 11:3 5 PM SALES ADVISOR COVID-19 09/17/2020 09/17/2020 10/07/2020 8:08 PM SALES ADVISOR documented as of this encounter Care Teams Talent Acquisition Partner Relationship Specialty Start Date End Date Roverto Arnold MD [address] [place] [address] PCP - General 12/10/09 documented as of this encounter
--- OUTSIDE RECORDS SUMMARY | 2025-07-12 04:44 | XMS_ITS | Encounter Summary ---
Author Organization [facility] Address [address] [place] [address] Care Team Providers Care Clinic Assistant Name Role Phone Roverto Arnold MD Primary Care Provider [phone] Encounter Details Date Type Department Care Team [...] on file Legal Sex Female 2:56 AM COVER CREASER Gender Identity Not on file Sexual Orientation Not on file documented as of this encounter Plan of Treatment Not on file documented as of this encounter Visit Diagnoses Diagnosis Occlusion and stenosis of carotid artery without mention of cerebral infarction- Primary documented in this encounter Additional Health Concerns Infection Onset Date Last Indicated Resolved Time R/O COVID-19 09/16/2020 09/16/2020 09/16/2020 11:3 5 PM COVER CREASER COVID-19 09/17/2020 09/17/2020 10/07/2020 8:08 PM COVER CREASER documented as of this encounter Care Teams Clinic Assistant Relationship Specialty Start Date End Date Roverto Arnold MD [address] [place] [address] PCP - General 12/10/09 documented as of this encounter
--- OUTSIDE RECORDS SUMMARY | 2025-07-12 04:44 | XMS_ITS | Encounter Summary ---
Author Organization [facility] Address [address] [place] [address] Phone Care Team Providers Care Landscaping Specialist Name Role Phone Marie Askew MD Primary Care Provider [phone] Reason for Visit * Reason Comments Med Refill Encounter Details Date Type Department Care Team ([facility] Contact Info) Description 10/06/2021 Refill [facility] [address] [place] [address] Lauren Gross NP [address] [place] [address] Stage 3b chronic kidney disease [...] Upcoming Encounters Date Type Department Care Team ([facility] Contact Info) Description 11/27/2025 2:50 PM TELEVISION ENGINEER Office Visit [facility] [address] [place], [place] [id number] Aaron Ugarte MD [address] [facility] [address] [place] [address] documented as of this encounter Visit Diagnoses Diagnosis Stage 3b chronic kidney disease (HCC) documented in this encounter Care Teams Landscaping Specialist Relationship Specialty Start Date End Date Marie Askew MD [address] [address] PCP - General Nurse Practitioner 03/05/22 documented as of this encounter
--- OUTSIDE RECORDS SUMMARY | 2025-07-12 04:44 | XMS_ITS | Encounter Summary ---
Author Organization [facility] Address [address] [place] [address] Care Team Providers Care Supervisor Wall Mirror Department Name Role Phone Roverto Arnold MD Primary Care Provider [phone] Encounter Details Date Type Department Care Team (Latest Contact Info) Description 07/27/2002 Outpatient Historical [facility] Cardiology- [place] [address] [place] [address] Xin Moe, ANP NO ADDRESS ON FILE CHR ISCHEMIC HRT DIS NEC (Primary Dx); Pure hypercholesterolem Social History Tobacco Use Types Packs/Day Years Used Date Smoking Tobacco: Never Assessed Comments Unknown Sex and Gender Information Value Date Recorded Sex Assigned at Not on file Legal Sex Female 2:56 AM MANAGER CABLE Gender Identity Not on file Sexual Orientation [...] 09/16/2020 09/16/2020 09/16/2020 11:3 5 PM MANAGER CABLE COVID-19 09/17/2020 09/17/2020 10/07/2020 8:08 PM MANAGER CABLE documented as of this encounter Care Teams Supervisor Wall Mirror Department Relationship Specialty Start Date End Date Roverto Arnold MD [address] [place] [address] PCP - General 12/10/09 documented as of this encounter
--- OUTSIDE RECORDS SUMMARY | 2025-07-12 04:44 | XMS_ITS | Encounter Summary ---
Author Organization [facility] Address [address] [place] [address] Care Team Providers Care Older Worker Specialist Name Role Phone Roverto Arnold MD Primary Care Provider [phone] Encounter Details Date Type Department Care Team (Latest Contact Info) Description 01/30/2003 Outpatient Historical [facility] Imaging Services [address] [place] [address] Le Carmichael, DO [address] [place] [address] CAROTID ART OCCL-NO INFARCT (Primary Dx) Social History Tobacco Use Types Packs/Day Years Used Date Smoking Tobacco: Never Assessed Comments Unknown Sex and Gender Information Value Date Recorded Sex Assigned at Not on file Legal Sex Female 2:56 AM DOOR PANELER Gender Identity Not on file Sexual Orientation Not on file documented as of this encounter Plan of Treatment Not on file documented as of this encounter Visit Diagnoses Diagnosis Occlusion and stenosis of carotid artery without mention of cerebral infarction- Primary documented in this encounter Additional Health Concerns Infection Onset Date Last Indicated Resolved Time R/O COVID-19 09/16/2020 09/16/2020 09/16/2020 11:3 5 PM DOOR PANELER COVID-19 09/17/2020 09/17/2020 10/07/2020 8:08 PM DOOR PANELER documented as of this encounter Care Teams Older Worker Specialist Relationship Specialty Start Date End Date Roverto Arnold MD [address] [place] [address] PCP - General 12/10/09 documented as of this encounter
--- OUTSIDE RECORDS SUMMARY | 2025-07-12 04:44 | XMS_ITS | Encounter Summary ---
Author Organization [facility] Address [address] [place] [address] Care Team Providers Care Director Data Processing Name Role Phone Roverto Arnold MD Primary Care Provider [phone] Encounter Details Date Type Department Care Team (Latest Contact Info) Description 02/19/2003 Outpatient Historical [facility] [address] [place] [address] Markie Ramírez MD NO ADDRESS ON FILE PREOP CARDIOVASC EXAM (Primary Dx) Social History Tobacco Use Types Packs/Day Years Used Date Smoking Tobacco: Never Assessed Comments Unknown Sex and Gender Information Value Date Recorded Sex Assigned at Not on file Legal Sex Female 2:56 AM LICENSED CERTIFIED ORTHOTIST Gender Identity Not on file Sexual Orientation Not on file documented as of this encounter Plan of Treatment Not on file documented as of this encounter Visit Diagnoses Diagnosis Pre-operative cardiovascular examination- Primary documented in this encounter Additional Health Concerns Infection Onset Date Last Indicated Resolved Time R/O COVID-19 09/16/2020 09/16/2020 09/16/2020 11:3 5 PM LICENSED CERTIFIED ORTHOTIST COVID-19 09/17/2020 09/17/2020 10/07/2020 8:08 PM LICENSED CERTIFIED ORTHOTIST documented as of this encounter Care Teams Director Data Processing Relationship Specialty Start Date End Date Roverto Arnold MD [address] [place] [address] PCP - General 12/10/09 documented as of this encounter
[2025-07-12 04:59] LABS: Glucose Urine UA 3+ (Normal); Nitrate Urine Negative (Negative); Specific Gravity, Urine 1.008 (1.005-1.030)
[2025-07-12 05:04] LABS: Add Urine Microscopic? YES
[2025-07-12] MEDS: acetaminophen 1,000 MG/100 ML PIGGYBACK 400 MG IV (05:06)
[2025-07-12 05:10] LABS: Hematocrit 33.4 % (36-47); Hemoglobin 10.30 g/dL (11.27-16.99); Mean Corpuscular HGB Conc 30.8 g/dL (30-55); Mean Corpuscular Hemoglobin 23.6 pg (27-33); Mean Corpuscular Volume 76.4 fl (85-98); Nucleated Red Blood Cells % 0 %; Platelet Count 274 10^3/cmm (157-399); Red Blood Count 4.37 10^6/uL (3.85-5.65); White Blood Count 5.02 10^3/uL (3.29-11.43)
[2025-07-12 05:27] LABS: Alanine Aminotransferase 12 U/L (0-33); Albumin Level 3.8 g/dL (3.5-5.2); Alkaline Phosphatase 43 U/L (35-105); Anion Gap 17.2 (5-19); Aspartate Amino Transferase 23 U/L (0-32); Blood Urea Nitrogen 14 mg/dL (8-23); Calcium 9.2 mg/dL (8.5-10.5); Carbon Dioxide 22 mmol/L (22-29); Chloride 101 mmol/L (98-107); Creatinine Clr Calc Pharmacy 35.3011; Globulin 2.9 g/dL (1.3-4.6); Glucose 104 mg/dL (65-115); Lipase 82 U/L (13-60); Osmolality Calculated 283 mOsm/kg (285-295); Potassium 4.2 mmol/L (3.5-5.1); Sodium 136 mmol/L (136-145); Total Protein 6.7 g/dL (6.6-8.7)
--- NOTE | 2025-07-12 05:39 | W.ED.ABDPA2 ---
Documented by User: Scar Tanner MD 07/12/25 05:57 HPI - Abdominal Pain General: Chief Complaint: Abdominal Pain Stated Complaint: Lt side abd pain, Bloating Time Seen by Provider: 07/12/25 04:40 History of Present Illness: 79 yo F with Hx of DM presents at ~4:45 am for left-sided abdominal pain and bloating. Pain localizes to left gpl-lj-izhue abdomen, intermittent, previously sharper but currently tender; worse with palpation earlier. Denies N/V/D. No reported fever. Did not notice worsening with bumps during the ride. Overate sweets last night per caregiver, including dessert and ice cream. Pt states she can usually handle pain. Reports short-term memory issues; caregiver (Le) provides history and context. Related Data Home Medications ?Medication ?Instructions ?Recorded ?Confirmed diltiazem HCl 120 mg 120 mg PO DAILY 09/06/20 06/23/25 capsule,extended release 24 hr fenofibrate nanocrystallized 145 145 mg PO DAILY 09/06/20 06/23/25 mg tablet isosorbide mononitrate 30 mg See Rx Instructions .Route .COMPLEX 09/06/20 06/23/25 tablet,extended release 24 hr levothyroxine 50 mcg tablet 50 mcg PO DAILY 09/06/20 06/23/25 pantoprazole 40 mg tablet,delayed 40 mg PO DAILY 09/06/20 06/23/25 release ranolazine 500 mg tablet,extended 500 mg PO BID 09/06/20 06/23/25 release,12 hr dapagliflozin propanediol 10 mg 10 mg PO DAILY 11/18/23 06/23/25 tablet (Farxiga) temazepam 30 mg capsule 30 mg PO BEDTIME 11/18/23 06/23/25 metoprolol tartrate 25 mg tablet 25 mg PO BID 02/04/24 06/23/25 lorazepam 1 mg tablet 1 mg PO BID 06/23/25 06/23/25 Previous Rx's ?Medication ?Instructions ?Recorded aspirin 81 mg tablet,delayed 81 mg PO DAILY 30 days #30 tabs 06/25/25 release atorvastatin 40 mg tablet 40 mg PO BEDTIME 30 days #30 tabs 06/25/25 clopidogrel 75 mg tablet 75 mg PO DAILY 30 days #30 tabs 06/25/25 nitroglycerin 0.4 mg sublingual 0.4 mg sublingual Q5M PRN Chest 06/25/25 tablet Pain 30 days #30 tabs Allergies Allergy/AdvReac Type Severity Reaction Status Date / Time alprazolam (From Xanax) Allergy ADR-Halluci Verified 07/06/25 18:08 nating codeine Allergy ADR-Vomitin Verified 02/04/24 15:41 g epinephrine (From Primatene Allergy ALGY-Difficulty Verified 02/04/24 15:41 Mist) Breathing mirtazapine Allergy ADR-Halluci Verified 07/06/25 18:08 nating morphine Allergy ALGY-Redness Verified 02/04/24 15:41 of Skin [facility] ED PFS: Medical History Recurrent UTI Chronic kidney disease (CKD) -on gentle IVF due to anticipated coronary angiogram -baseline Cr appears to be around 1.2-1.3 Dyslipidemia associated with type 2 diabetes mellitus -continue statin Benign essential hypertension with target blood pressure below 140/90 -amlodipine added for more optimal BP control Atherosclerotic heart disease of [place] coronary artery with unstable angina pectoris -s/p bypass x 4, stenting x 3 Peripheral neuropathy [place] spotted fever Hypothyroidism Sleep apnea GERD (gastroesophageal reflux disease) Coronary artery disease Diabetes Kidney disease, chronic, stage II (GFR 60-89 ml/min) Cholecystitis Surgical History History of right-sided carotid endarterectomy Hx of cholecystectomy S/P CABG (coronary artery bypass graft) Patient reports 3 times Family History Father , AT AGE 74 Natural with unknown cause Mother , AT AGE 81 Heart attack Other Family history non-contributory Social History Smoking and tobacco/nicotine status: former use of tobacco/nicotine Alcohol intake: never Substance/Drug Use: never Marital status: Current occupational status: retired Physical Exam Const: COMMON NORMALS: no acute distress, patient oriented x3 (at baseline) and alert HENMT: COMMON NORMALS: normocephalic and atraumatic HEAD & SCALP: normocephalic and atraumatic Eye: COMMON NORMALS: Equal, round and reactive pupils present, EOMs intact bilaterally and no scleral icterus PUPIL: Yes Equal, round and reactive pupils present Resp: COMMON NORMALS: normal respiratory effort and No retractions Cardio: COMMON NORMALS: regular rate, regular rhythm and No murmurs present (Cardio) RATE: regular rate RHYTHM: regular rhythm GI: OTHER: Soft, normal bowel sounds, mild tenderness with palpation in the left lyl-ft-bigwj abdomen; no palpable masses, no hernia, no splenomegaly. Neuro: COMMON NORMALS: patient oriented x3 (at baseline) SENSORIUM/ORIENTATION: Yes alert OTHER: Pleasantly demented Skin: COMMON NORMALS: no rashes or lesions noted GENERAL SKIN EXAM: no rashes or lesions noted Course Vital Signs: Vital signs: Vital Signs Temperature 97.5 F L 07/12/25 04:46 Pulse Rate 60 07/12/25 07:00 Respiratory Rate 16 07/12/25 04:46 Blood Pressure 167/64 07/12/25 07:00 Pulse Oximetry 90 07/12/25 07:00 Oxygen Delivery Me thod Room Air 07/12/25 07:00 MDM - Abdominal Pain Medical Decision Making 79 yo F with DM presents with intermittent left yhw-oj-wymfd abdominal pain and bloating, onset prior to arrival. Denies N/V/D or fever. Overate sweets last night. Baseline short-term memory issues; caregiver provides collateral. PE: abd soft, normal BS, mild TTP left xlh-fs-ejitr abdomen; no masses, hernia, or splenomegaly. Neuro baseline with mild disorientation. Patient remained hemodynamically stable throughout ED course. Laboratory evaluation is largely noncontributory vital signs are stable. Physical exam is only remarkable for mild left upper quadrant tenderness without splenomegaly. CT scan will be performed to rule out other emergent pathology. Pertinent details of the case were shared with the oncoming emergency physician, Dr. Morse, who will help facilitate ultimate disposition based on CT findings Lab Data 07/12/25 05:04 07/12/25 05:04 Labs/Radiology: Radiology Impressions Abdomen/Pelvis CT 07/12/25 04:39 IMPRESSION: No acute findings. COMMENTS: Consistent with the [place] [employer]'s Incidental Findings Committee white paper (J Am Av Radiol 2018): Any incidental renal lesion less than 1 cm or classified as too small to characterize, or any incidental cystic renal lesion characterized as simple-appearing, is likely benign. No follow-up imaging is recommended for these lesions per consensus recommendations based on imaging criteria. Laboratory Results WBC 5.02 10^3/uL (3.29-11.43) 07/12/25 05:04 RBC 4.37 10^6/uL (3.85-5.65) 07/12/25 05:04 Hgb 10.30 g/dL (11.27-16.99) L 07/12/25 05:04 Hct 33.4 % (36-47) L 07/12/25 05:04 MCV 76.4 fl (85-98) L 07/12/25 05:04 MCH 23.6 pg (27-33) L 07/12/25 05:04 MCHC 30.8 g/dL (30-55) 07/12/25 05:04 RDW 17.6 % (12.1-15.1) H 07/12/25 05:04 Plt Count 274 10^3/cmm (157-399) 07/12/25 05:04 MPV 10.9 fL (7.4-10.4) H 07/12/25 05:04 Neut % (Auto) 57.0 % 07/12/25 05:04 Lymph % (Auto) 23.5 % 07/12/25 05:04 [place] % (Auto) 14.3 % 07/12/25 05:04 Eos % (Auto) 4.2 % 07/12/25 05:04 Baso % (Auto) 0.8 % 07/12/25 05:04 Neut # (Auto) 2.86 10^3/uL (1.8-7.7) 07/12/25 05:04 Lymph # (Auto) 1.2 10^3/uL (0.8-4.8) 07/12/25 05:04 [place] # (Auto) 0.7 10^3/uL (0.2-0.9) 07/12/25 05:04 Eos # (Auto) 0.2 10^3/uL (0.0-0.8) 07/12/25 05:04 Baso # (Auto) 0.0 10^3/uL (0.0-0.1) 07/12/25 05:04 Nucleated RBC % (auto) 0 % 07/12/25 05:04 Nucleated RBCs # 0.0 /100WBC 07/12/25 05:04 Sodium 136 mmol/L (136-145) 07/12/25 05:04 Potassium 4.2 mmol/L (3.5-5.1) 07/12/25 05:04 Chloride 101 mmol/L (98-107) 07/12/25 05:04 Carbon Dioxide 22 mmol/L (22-29) 07/12/25 05:04 Anion Gap 17.2 (5-19) 07/12/25 05:04 BUN 14 mg/dL (8-23) 07/12/25 05:04 Creatinine 1.0 mg/dL (0.5-0.9) H 07/12/25 05:04 GFR Calculation Not Reportable 07/12/25 05:04 Glucose 104 mg/dL (65-115) 07/12/25 05:04 Calculated Osmolality 283 mOsm/kg (285-295) L 07/12/25 05:04 Calcium 9.2 mg/dL (8.5-10.5) 07/12/25 05:04 Total Bilirubin 0.4 mg/dL (0.15-1.2) 07/12/25 05:04 AST 23 U/L (0-32) 07/12/25 05:04 ALT 12 U/L (0-33) 07/12/25 05:04 Alkaline Phosphatase 43 U/L (35-105) 07/12/25 05:04 Total Protein 6.7 g/dL (6.6-8.7) 07/12/25 05:04 Albumin 3.8 g/dL (3.5-5.2) 07/12/25 05:04 Globulin 2.9 g/dL (1.3-4.6) 07/12/25 05:04 Lipase 82 U/L (13-60) H 07/12/25 05:04 Urine Color Yellow (Yellow) 07/12/25 04:47 Urine Appearance Clear (CLEAR) 07/12/25 04:47 Urine pH 7.0 (5-7) 07/12/25 04:47 Ur Specific [place] 1.008 (1.005-1.030) 07/12/25 04:47 Urine Protein Negative (Negative) 07/12/25 04:47 Urine Glucose (UA) 3+ (Normal) H 07/12/25 04:47 Urine Ketones Negative (Negative) 07/12/25 04:47 Urine Blood Non-haemolysed trace (Negative) 07/12/25 04:47 Urine Nitrate Negative (Negative) 07/12/25 04:47 Urine Bilirubin Negative (Negative) 07/12/25 04:47 Urine Urobilinogen 0.2 mg/dL (Negative) 07/12/25 04:47 Ur Leukocyte Esterase Negative (Negative) 07/12/25 04:47 Urine RBC 3-5 /hpf (0-2) 07/12/25 04:47 Urine WBC 0-5 /hpf (0-5) 07/12/25 04:47 Ur Squamous Epith Cells 0-5 /hpf (0-5) 07/12/25 04:47 Amorphous Sediment Not Reportable 07/12/25 04:47 Urine Bacteria None seen /hpf (NONE) 07/12/25 04:47 Hyaline Casts 0-4 /lpf H 07/12/25 04:47 XR interpretation done by ED provider, pending radiology final review Discharge Plan Discharge Patient Disposition: Home Clinical Impression: Abdominal pain, Anemia Condition: Stable Prescriptions: No Action pantoprazole 40 mg Tablet,Delayed Release (Dr/Ec) 40 mg PO DAILY isosorbide mononitrate 30 mg tablet extended release 24 hr See Rx Instructions .ROUTE .COMPLEX Rx Instructions: 60 mg orally in the morning/ 30 mg orally in the evening levothyroxine 50 mcg tablet 50 mcg PO DAILY diltiazem HCl 120 mg capsule,extended release 24hr 120 mg PO DAILY ranolazine 500 mg tablet extended release 12 hr 500 mg PO BID fenofibrate nanocrystallized 145 mg tablet 145 mg PO DAILY metoprolol tartrate 25 mg tablet 25 mg PO BID lorazepam 1 mg tablet 1 mg PO BID aspirin 81 mg Tablet,Delayed Release (Dr/Ec) 81 mg PO DAILY 30 Days Qty: 30 0RF nitroglycerin 0.4 mg Tablet, Sublingual 0.4 mg sublingual Q5M PRN (Reason: Chest Pain) 30 Days Qty: 30 0RF atorvastatin 40 mg Tablet 40 mg PO BEDTIME 30 Days Qty: 30 0RF clopidogrel 75 mg tablet 75 mg PO DAILY 30 Days Qty: 30 0RF temazepam 30 mg capsule 30 mg PO BEDTIME dapagliflozin propanediol [Farxiga] 10 mg tablet 10 mg PO DAILY Discharge Orders: Discharge ED (Routine); Ordered 07/12/25 Ordered By: Dave Morse Referrals: Roverto Arnold MD [Primary Care Provider, Family Practice] Patient Instructions: Abdominal Pain (ED), Opioid Safety, Pain Management, Patient Portal & [place] Instructions Activity Restrictions/Additional Instructions: Thank you for choosing [facility] for your healthcare needs today. It is very important that you follow up as instructed or that you return to the Emergency Department should you have concerns or if your condition changes or worsens in any way. Emergency department visits are focused on emergent conditions, in some cases you may require further evaluation on an outpatient basis. You are seen in the emergency room with complaint of abdominal pain laboratory test did not show any acute abnormalities and the CT was normal. No signs of any acute pathology at this time. We did note that your hemoglobin has decreased. Some of this could be a consequence of your recent heart catheterization. You should have your hemoglobin repeated in the next 4 to 5 days. (Please note that included in your discharge packet is information concerning opioid safety and pain management. This information is given to all patients were discharged from the ER regardless of their discharge diagnosis or the medicines they usually take or are prescribed.) Print Language: [place] Sign Out Sign Out Data: Patient Sign Out occurred on 07/12/25 at 06:03. Patient's care was discussed, and care was transferred from Scar Tanner MD to Dave Morse DO. Coding Level of Care Code ED Cdl Service Technician for Chg Fwd Documented by User: Dave Morse DO 07/12/25 07:19 HPI - Abdominal Pain General: Chief Complaint: Abdominal Pain Stated Complaint: Lt side abd pain, Bloating Time Seen by Provider: 07/12/25 04:40 Related Data Home Medications ?Medication ?Instructions ?Recorded ?Confirmed diltiazem HCl 120 mg 120 mg PO DAILY 11/13/20 08/30/25 capsule,extended release 24 hr fenofibrate nanocrystallized 145 145 mg PO DAILY 09/06/20 06/23/25 mg tablet isosorbide mononitrate 30 mg See Rx Instructions .Route .COMPLEX 09/06/20 06/23/25 tablet,extended release 24 hr levothyroxine 50 mcg tablet 50 mcg PO DAILY 09/06/20 06/23/25 pantoprazole 40 mg tablet,delayed 40 mg PO DAILY 09/06/20 06/23/25 release ranolazine 500 mg tablet,extended 500 mg PO BID 09/06/20 06/23/25 release,12 hr dapagliflozin propanediol 10 mg 10 mg PO DAILY 11/18/23 06/23/25 tablet (Farxiga) temazepam 30 mg capsule 30 mg PO BEDTIME 11/18/23 06/23/25 metoprolol tartrate 25 mg tablet 25 mg PO BID 02/04/24 06/23/25 lorazepam 1 mg tablet 1 mg PO BID 06/23/25 06/23/25 Previous Rx's ?Medication ?Instructions ?Recorded aspirin 81 mg tablet,delayed 81 mg PO DAILY 30 days #30 tabs 06/25/25 release atorvastatin 40 mg tablet 40 mg PO BEDTIME 30 days #30 tabs 06/25/25 clopidogrel 75 mg tablet 75 mg PO DAILY 30 days #30 tabs 06/25/25 nitroglycerin 0.4 mg sublingual 0.4 mg sublingual Q5M PRN Chest 06/25/25 tablet Pain 30 days #30 tabs Allergies Allergy/AdvReac Type Severity Reaction Status Date / Time alprazolam (From Xanax) Allergy ADR-Halluci Verified 07/06/25 18:08 nating codeine Allergy ADR-Vomitin Verified 02/04/24 15:41 g epinephrine (From Primatene Allergy ALGY-Difficulty Verified 02/04/24 15:41 Mist) Breathing mirtazapine Allergy ADR-Halluci Verified 07/06/25 18:08 nating morphine Allergy ALGY-Redness Verified 02/04/24 15:41 of Skin [facility] ED PFSH: Medical History Recurrent UTI Chronic kidney disease (CKD) -on gentle IVF due to anticipated coronary angiogram -baseline Cr appears to be around 1.2-1.3 Dyslipidemia associated with type 2 diabetes mellitus -continue statin Benign essential hypertension with target blood pressure below 140/90 -amlodipine added for more optimal BP control Atherosclerotic heart disease of [place] coronary artery with unstable angina pectoris -s/p bypass x 4, stenting x 3 Peripheral neuropathy [place] spotted fever Hypothyroidism Sleep apnea GERD (gastroesophageal reflux disease) Coronary artery disease Diabetes Kidney disease, chronic, stage II (GFR 60-89 ml/min) Cholecystitis Surgical History History of right-sided carotid endarterectomy Hx of cholecystectomy S/P CABG (coronary artery bypass graft) Patient reports 3 times Family History Father , AT AGE 74 Natural with unknown cause Mother , AT AGE 81 Heart attack Other Family history non-contributory Social History Smoking and tobacco/nicotine status: former use of tobacco/nicotine Alcohol intake: never Substance/Drug Use: never Marital status: Current occupational status: retired Course Vital Signs: Vital signs: Vital Signs Temperature 97.5 F L 07/12/25 04:46 Pulse Rate 60 07/12/25 07:00 Respiratory Rate 16 07/12/25 04:46 Blood Pressure 167/64 07/12/25 07:00 Pulse Oximetry 90 07/12/25 07:00 Oxygen Delivery Me thod Room Air 07/12/25 07:00 MDM - Abdominal Pain Medical Decision Making 79 yo F with DM presents with intermittent left umg-zh-nmubp abdominal pain and bloating, onset prior to arrival. Denies N/V/D or fever. Overate sweets last night. Baseline short-term memory issues; caregiver provides collateral. PE: abd soft, normal BS, mild TTP left hia-pi-tebry abdomen; no masses, hernia, or splenomegaly. Neuro baseline with mild disorientation. Patient remained hemodynamically stable throughout ED course. Laboratory evaluation is largely noncontributory vital signs are stable. Physical exam is only remarkable for mild left upper quadrant tenderness without splenomegaly. CT scan will be performed to rule out other emergent pathology. Pertinent details of the case were shared with the oncoming emergency physician, Dr. Morse, who will help facilitate ultimate disposition based on CT findings Care assumed at change of shift CT shows no acute pathology did note her hemoglobin is gone from 12 on July 06 to 10.3 today. Patient denies any hematemesis coffee-ground emesis she has not had any melena or hematochezia. She had a colonoscopy within the last 5 years that was normal. She was started on Plavix for her recent coronary stent. She is taking aspirin in addition to this. She has not noticed any change in her stools since then. She has no epigastric pain now. Will discharge her home encouraged her to follow-up next week with her primary care doctor and have her hemoglobin rechecked it could be that her hemoglobin is down as a result of her procedure although that is a fairly significant drop for a heart catheterization. Repeat exam the time of discharge is benign she has no epigastric discomfort nonacute abdomen. Lab Data 07/12/25 05:04 07/12/25 05:04 Labs/Radiology: Radiology Impressions Abdomen/Pelvis CT 07/12/25 04:39 IMPRESSION: No acute findings. COMMENTS: Consistent with the [place] [employer]'s Incidental Findings Committee white paper (J Am Av Radiol 2018): Any incidental renal lesion less than 1 cm or classified as too small to characterize, or any incidental cystic renal lesion characterized as simple-appearing, is likely benign. No follow-up imaging is recommended for these lesions per consensus recommendations based on imaging criteria. Laboratory Results WBC 5.02 10^3/uL (3.29-11.43) 07/12/25 05:04 RBC 4.37 10^6/uL (3.85-5.65) 07/12/25 05:04 Hgb 10.30 g/dL (11.27-16.99) L 07/12/25 05:04 Hct 33.4 % (36-47) L 07/12/25 05:04 MCV 76.4 fl (85-98) L 07/12/25 05:04 MCH 23.6 pg (27-33) L 07/12/25 05:04 MCHC 30.8 g/dL (30-55) 07/12/25 05:04 RDW 17.6 % (12.1-15.1) H 07/12/25 05:04 Plt Count 274 10^3/cmm (157-399) 07/12/25 05:04 MPV 10.9 fL (7.4-10.4) H 07/12/25 05:04 Neut % (Auto) 57.0 % 07/12/25 05:04 Lymph % (Auto) 23.5 % 07/12/25 05:04 [place] % (Auto) 14.3 % 07/12/25 05:04 Eos % (Auto) 4.2 % 07/12/25 05:04 Baso % (Auto) 0.8 % 07/12/25 05:04 Neut # (Auto) 2.86 10^3/uL (1.8-7.7) 07/12/25 05:04 Lymph # (Auto) 1.2 10^3/uL (0.8-4.8) 07/12/25 05:04 [place] # (Auto) 0.7 10^3/uL (0.2-0.9) 07/12/25 05:04 Eos # (Auto) 0.2 10^3/uL (0.0-0.8) 07/12/25 05:04 Baso # (Auto) 0.0 10^3/uL (0.0-0.1) 07/12/25 05:04 Nucleated RBC % (auto) 0 % 07/12/25 05:04 Nucleated RBCs # 0.0 /100WBC 07/12/25 05:04 Sodium 136 mmol/L (136-145) 07/12/25 05:04 Potassium 4.2 mmol/L (3.5-5.1) 07/12/25 05:04 Chloride 101 mmol/L (98-107) 07/12/25 05:04 Carbon Dioxide 22 mmol/L (22-29) 07/12/25 05:04 Anion Gap 17.2 (5-19) 07/12/25 05:04 BUN 14 mg/dL (8-23) 07/12/25 05:04 Creatinine 1.0 mg/dL (0.5-0.9) H 07/12/25 05:04 GFR Calculation Not Reportable 07/12/25 05:04 Glucose 104 mg/dL (65-115) 07/12/25 05:04 Calculated Osmolality 283 mOsm/kg (285-295) L 07/12/25 05:04 Calcium 9.2 mg/dL (8.5-10.5) 07/12/25 05:04 Total Bilirubin 0.4 mg/dL (0.15-1.2) 07/12/25 05:04 AST 23 U/L (0-32) 07/12/25 05:04 ALT 12 U/L (0-33) 07/12/25 05:04 Alkaline Phosphatase 43 U/L (35-105) 07/12/25 05:04 Total Protein 6.7 g/dL (6.6-8.7) 07/12/25 05:04 Albumin 3.8 g/dL (3.5-5.2) 07/12/25 05:04 Globulin 2.9 g/dL (1.3-4.6) 07/12/25 05:04 Lipase 82 U/L (13-60) H 07/12/25 05:04 Urine Color Yellow (Yellow) 07/12/25 04:47 Urine Appearance Clear (CLEAR) 07/12/25 04:47 Urine pH 7.0 (5-7) 07/12/25 04:47 Ur Specific [place] 1.008 (1.005-1.030) 07/12/25 04:47 Urine Protein Negative (Negative) 07/12/25 04:47 Urine Glucose (UA) 3+ (Normal) H 07/12/25 04:47 Urine Ketones Negative (Negative) 07/12/25 04:47 Urine Blood Non-haemolysed trace (Negative) 07/12/25 04:47 Urine Nitrate Negative (Negative) 07/12/25 04:47 Urine Bilirubin Negative (Negative) 07/12/25 04:47 Urine Urobilinogen 0.2 mg/dL (Negative) 07/12/25 04:47 Ur Leukocyte Esterase Negative (Negative) 07/12/25 04:47 Urine RBC 3-5 /hpf (0-2) 07/12/25 04:47 Urine WBC 0-5 /hpf (0-5) 07/12/25 04:47 Ur Squamous Epith Cells 0-5 /hpf (0-5) 07/12/25 04:47 Amorphous Sediment Not Reportable 07/12/25 04:47 Urine Bacteria None seen /hpf (NONE) 07/12/25 04:47 Hyaline Casts 0-4 /lpf H 07/12/25 04:47 Discharge Plan Discharge Patient Disposition: Home Clinical Impression: Abdominal pain, Anemia Condition: Stable Prescriptions: No Action pantoprazole 40 mg Tablet,Delayed Release (Dr/Ec) 40 mg PO DAILY isosorbide mononitrate 30 mg tablet extended release 24 hr See Rx Instructions .ROUTE .COMPLEX Rx Instructions: 60 mg orally in the morning/ 30 mg orally in the evening levothyroxine 50 mcg tablet 50 mcg PO DAILY diltiazem HCl 120 mg capsule,extended release 24hr 120 mg PO DAILY ranolazine 500 mg tablet extended release 12 hr 500 mg PO BID fenofibrate nanocrystallized 145 mg tablet 145 mg PO DAILY metoprolol tartrate 25 mg tablet 25 mg PO BID lorazepam 1 mg tablet 1 mg PO BID aspirin 81 mg Tablet,Delayed Release (Dr/Ec) 81 mg PO DAILY 30 Days Qty: 30 0RF nitroglycerin 0.4 mg Tablet, Sublingual 0.4 mg sublingual Q5M PRN (Reason: Chest Pain) 30 Days Qty: 30 0RF atorvastatin 40 mg Tablet 40 mg PO BEDTIME 30 Days Qty: 30 0RF clopidogrel 75 mg tablet 75 mg PO DAILY 30 Days Qty: 30 0RF temazepam 30 mg capsule 30 mg PO BEDTIME dapagliflozin propanediol [Farxiga] 10 mg tablet 10 mg PO DAILY Discharge Orders: Discharge ED (Routine); Ordered 07/12/25 Ordered By: Dave Morse Referrals: Roverto Arnold MD [Primary Care Provider, Family Practice] Patient Instructions: Abdominal Pain (ED), Opioid Safety, Pain Management, Patient Portal & [place] Instructions Activity Restrictions/Additional Instructions: Thank you for choosing [facility] for your healthcare needs today. It is very important that you follow up as instructed or that you return to the Emergency Department should you have concerns or if your condition changes or worsens in any way. Emergency department visits are focused on emergent conditions, in some cases you may require further evaluation on an outpatient basis. You are seen in the emergency room with complaint of abdominal pain laboratory test did not show any acute abnormalities and the CT was normal. No signs of any acute pathology at this time. We did note that your hemoglobin has decreased. Some of this could be a consequence of your recent heart catheterization. You should have your hemoglobin repeated in the next 4 to 5 days. (Please note that included in your discharge packet is information concerning opioid safety and pain management. This information is given to all patients were discharged from the ER regardless of their discharge diagnosis or the medicines they usually take or are prescribed.) Print Language: [place] Sign Out Sign Out Data: Patient Sign Out occurred on 07/12/25 at 06:03. Patient's care was discussed, and care was transferred from Scar Tanner MD to Dave Morse DO. Coding Level of Care Code ED Cdl Service Technician for Bev Rivera
[2025-07-12] MEDS: iohexol 350 mg/mL 500 mL Btl (per mL) IV (05:49)
== END 2025-07-12 07:20 | disposition home or self-care (01) ==
PROVIDERS: Student in an Organized Health Care Education/Training Program; Emergency Provider Family Medicine; PCP Family Medicine
DX: R10.9 Unspecified abdominal pain (principal); D64.9 Anemia, unspecified; Z79.82 Long term (current) use of aspirin; Z79.02 Long term (current) use of antithrombotics/antiplatelets; Z87.891 Personal history of nicotine dependence; Z95.1 Presence of aortocoronary bypass graft; I25.110 Atherosclerotic heart disease of native coronary artery with unstable angina pectoris; E11.22 Type 2 diabetes mellitus with diabetic chronic kidney disease; I12.9 Hypertensive chronic kidney disease with stage 1 through stage 4 chronic kidney disease, or unspecified chronic kidney disease; N18.2 Chronic kidney disease, stage 2 (mild); E78.5 Hyperlipidemia, unspecified
CPT/HCPCS: 74177; 80053; 81001; 83690; 85025; 96374; 99285; J0131

== ENCOUNTER 2025-07-15 13:35 | Emergency (ER) | payer OTHER, MEDICAID, SELFPAY ==
--- OUTSIDE RECORDS SUMMARY | 2022-12-01 10:00 | XMS_ITS | Continuity of Care Document ---
Author Organization [facility] Address [address] [id number] [address] Phone Care Team Providers Care Mexican Food Cook Name Role Phone Vitaly Daley DDS Unavailable Unavailabl e Allergies, Adverse Reactions, Alerts Substance Reaction Status Criticality morphine Active No Information hydrocodone Active No Information Medications Medication Instructions Dosage Effective Dates (start - stop) Status Comments hydrocodone 5 mg-acetaminophen 325 mg tablet take 1 tablet by oral route every 6 hours as needed for pain as needed 1.00 tablet - Active ondansetron HCl 4 mg tablet take 1 tablet by oral route every day as needed 4 MG - Active Augmentin 500 mg-125 mg tablet take 1 tablet by oral route every 12 hours 1.00 tablet - Active isosorbide (bulk) 98 % powder - Active temazepam 7.5 mg capsule take 1 capsule by oral route every day at bedtime as needed 7.5 MG - Active Lexapro 5 mg tablet take 1 tablet by oral route every day 5 MG - Active aspirin 325 mg tablet take 1 tablet by oral route every day 325 MG - Active diltiazem ER (XR/XT) 180 mg capsule,extended release 24 hr, controlled take 1 capsule by oral route every day 180 MG - Active Plavix 75 mg tablet take 1 tablet by oral route every day 75 MG - Active Ranexa 500 mg tablet,extended release take 1 tablet by oral route 2 times every day - Active Protonix 20 mg tablet,delayed release take 2 tablet by oral route every day 40 MG - Active metoprolol tartrate 25 mg tablet take 1 tablet by oral route 2 times every day 25 MG - Active fenofibrate 50 mg capsule take 1 capsule by oral route every day with a meal 50 MG - Active Procedures Procedure Date Post Op No Charge EDR Approval Note EDR Approval Note Treatment Plan Complete Removal Of Impacted Tooth Completely Bony Incision And Drainage Of Abs cess Intraoral Soft EDR Approval Note Limited Oral Evaluation Problem Focused Treatment Plan Complete EDR Approval Note Limited Oral Evaluation Problem Focused Intraoral Periapical First Film Advance Directives Directive Yes / No Effective Date File Name No Information Encounters Encounter Description Practice Location Reason(s) For Visit Diagnoses Date Provider Providers Copied on Encounter [facility], [id number] [place], [place], [id number], [place] tel:[phone] Dental General No Information Thuy Haider. [address] [place] [address], [address], [place]. tel:[phone] Referring Provider: Vitaly Daley, [address] [place] [address], [address]. tel:[phone] [facility], [id number]-Vp [place], [id number], [place] tel:[phone] Dental General Encounter for dental exam and cleaning w/o abnormal findings Thuy Haider. [address] [place] [address], [address], [place]. tel:[phone] Referring Provider: Vitaly Daley, [address] [place] [address], [address]. tel:[phone] [facility], [id number]-Fh [place], [id number], [place] tel:[phone] Dental General [facility] Encounter for dental exam and cleaning w/o abnormal findings Thuy Haider. [address] [place] [address], [address], [place]. tel:[phone] Referring Provider: Vitaly Daley, [address] [place] [address], [address]. tel:[phone] [facility], [id number]-Lk [place], [id number], [place] tel:[phone] [facility] No Information Migel Lizarraga. [address], [place], [address], [place]. tel:[phone] Referring Provider: Nu Lainez, [address] [place], [address]. tel:[phone] Family History Family Member Type Diagnosis Age At Onset No Information Payers Payer name Insurance type Covered democrat ID Angelita sparrow(s) D [facility] Advantage CI [id number] Social History Type Description Quantity Date Captured Comments Alcohol Use Details No Caffeine Use Details Unknown Tobacco Use Status No Information Smoking Status No Information Sex Female Gender Identity Female Chief Complaint And Reason For Visit No Information Reason For Referral Reason For Referral No Information History Of Present Illness Encounter Date Complaint History Of Prese nt Illness No Information Functional Status Date Functional Assessmen t No Information Instructions Date Instruction Additional Infor mation No Information Assessments Type Assessment Date No Information Patient Care Teams Name Effective Dates (start - stop) Status Members No Information
[2025-07-15 13:38] VITALS: BP 122/78; PULSE 93; RESP 16; TEMP 36.3; O2SAT 93
--- OUTSIDE RECORDS SUMMARY | 2025-07-15 13:40 | XMS_ITS | Encounter Summary ---
Author Organization [facility] Address [address] [place] [address] Care Team Providers Care Childbirth Educator Name Role Phone Roverto Arnold MD Primary Care Provider [phone] Encounter Details Date Type Department Care Team (Late st Contact Info) Description 12/10/2003 Outpatient Historical [facility] General and Trauma Surgery-[address] [place] [address] Ursula Arita, CABINET ABRASIVE SANDBLASTER [address] [place] [address] CAROTID ART OCCL-NO INFARCT (Primary Dx); PERIPH VASCULAR DIS NOS; DIABETES UNCOMPL ADULT-TYPE II (CMS/HCC) Social History Tobacco Use Types Packs/Day Years Used Date Smoking Tobacco: Never Assessed Comments Unknown Sex and Gender Information Value Date Recorded Sex Assigned at Not on file Legal Sex Female 2:56 AM [employer]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
--- OUTSIDE RECORDS SUMMARY | 2025-07-15 13:40 | XMS_ITS | Clinical Summary ---
Author Organization [facility] de Address [address] [place] [address] Phone Care Team Providers Care Pallet Stone Positioner Name Role Phone Roverto Arnold MD Primary Care Provider [phone] Allergies Active Allergy Reactions Criticality Noted Date [...] D (coronary artery disease),Pure hyperglyceridemia,DM (diabetes mellitus) ([facility]) Take 50 mcg by mouth daily shredded filler cutter operator. Active aspirin (ECOTRIN EC) 81 mg Tablet, [...] daily. 90 Tablet 1 9 1:21 PM POST ANESTHESIA CARE UNIT NURSE 12/12/19 19 Active ranolazine ER (RANEXA) 500 [...] (04/26/2020): Added automatically from request for surgery [id number] Unstable angina 12/06/2018 06/10/2019 Chest pain 06/19/2015 [...] on file Legal Sex Female 2:56 AM POST ANESTHESIA CARE UNIT NURSE Gender Identity Not on file Sexual Orientation [...] history exists Medical Devices Implanted Type Area Patcher Device Identifier Shelf Expiration Date Model / Serial / Lot Sealant Progel Pleural 4ml [id number] - [id number] Implanted:Qty: 1 on 02/20/2013 by Fabio Islas MD at [facility] Biological N/A: Chest CR BARD- DAVOL INC 09/22/2014 [id number] / / [id number] Sealant Mynx Plant Breeder 6-7fr [id number] - [id number] Implanted:12/2019 at [facility] (Quantity not on file) Closure Device Right: Groin ACCESS CLOSURE 01/22/2022 [id number] / / [id number] Closure Perclose Proglide [id number] - [id number] Implanted:Qty: 1 on 02/05/2021 at [facility] Closure Device Right: Groin DUDLEY- VASC DEVICE 10/24/2022 [id number] / / [id number] [place] Ptfe Thck 1.6mmx2.5x10.2 cm [id number] - [id number] Implanted:Qty: 1 on 02/20/2013 by Fabio Islas MD at [facility] Graft N/A: Chest CR BARD- GUILLERMO VASC INC 08/22/2017 [id number] / / [id number] Ptfe Thck 1.6mmx2.5x2.5c m [id number] - [id number] Implanted:Qty: 1 on 02/20/2013 at [facility] Graft CR BARD- GUILLERMO VASC INC 12/22/2017 [id number] / / [id number] Sealant Floseal W/ Adptr 10ml [id number] - [id number] Implanted:Qty: 1 on 02/20/2013 by Fabio Islas MD at [facility] Sealant N/A: Chest LOPES- BIOSCIENCE 02/20/2014 [id number] / / [id number] Sealant Floseal W/ Adptr 10ml [id number] - [id number] Implanted:Qty: 1 on 02/20/2013 by Niranjan Reilly MD at [facility] Sealant LOPES- BIOSCIENCE 04/23/2014 [id number] / / [id number] Promus Premier 2.25x12 Implanted:06/2015 (Quantity not on file) Stent Stent Synergy Mr 4.0x28mm Drug Elut [id number] - [id number] Implanted:12/2019 at [facility] (Quantity not on file) Stent Right: Coronary BOSTON SCI MAULIK 09/12/2021 [id number] / / [id number] Stent Synergy Mr 2.5x16mm Drug Elut [id number] - [id number] Implanted:Qty: 1 on 02/05/2021 by Bird Hernandez MD at [facility] Stent Left: Coronary [employer] MAULIK 09/11/2022 [id number] / / [id number] Stent Synergy Mr 4.0x8mm Drug Elut [id number] - [id number] Implanted:Qty: 1 on 02/05/2021 by Bird Hernandez MD at [facility] Stent Left: Coronary [employer] MAULIK 08/05/2022 [id number] / / [id number] Stent Synergy Mr 4.0x12mm Drug Elut [id number] - [id number] Implanted:Qty: 1 on 02/05/2021 by Bird Hernandez MD at [facility] Stent Right: Coronary [employer] MAULIK 08/27/2022 [id number] / / [id number] Marker Graft 1001-83 - [id number] Implanted:Qty: 1 on 02/20/2013 by Fabio Islas MD at [facility] N/A: Chest ROMAN INT 05/22/2016 1001-83 / / [id number] Explanted Type Area Patcher Device Identifier Shelf Expiration Date Model / Serial / Lot Stent Graftmaster 4.5x19 Rx [id number] - [id number] Implanted:Qty: 1 Explanted:Qty: 1 on 04/26/2020 at [facility] Stent Right: Coronary DUDLEY- VASC DEVICE 02/21/2021 [id number] / / [id number] Description:inserted and rem chayo undeployed and intact Procedures Procedure Name Priority Date/Time Associated Diagnosis Comments LIPID PANEL Routine 02/04/2021 8:33 AM CDT Multiple vessel coronary artery disease PVD (peripheral vascular disease) HEMOGLOBIN A1C Routine 12/06/2018 11:56 PM POST ANESTHESIA CARE UNIT NURSE from Last 3 Months or Most Recently Relevant to Health Maintenance Results * (ABNORMAL) LIPID PANEL (02/04/2021 8:33 AM CDT) CHOLESTEROL 231(H) <200 mg/dL 02/04/2021 9:30 PM CDT [facility] TRIGLYCERIDE 493(H) <150 mg/dL 02/04/2021 9:30 PM CDT [facility] HDL 40 40 - 59 mg/dL 02/04/2021 9:30 PM CDT [facility] LDL CALCULATED 02/04/2021 9:30 PM CDT [facility] Comment:Calculated LDL is no t accurate when the Triglyceride value exceeds 400. NON-HDL CHOLESTEROL 191(H) <130 mg/dL 02/04/2021 9:30 PM CDT [facility] Blood Venipuncture / Unknown 02/04/2021 8:33 AM CDT 02/04/2021 8:14 PM CDT Narrative [facility] - 02/04/2021 [...] CHEMISTRY ORDERABLES Final Result Performing Organization Address [facility] de Phone Number [facility] CLIA# [id number] [address] [place] [address] * (ABNORMAL) HEMOGLOBIN A1C (12/06/2018 11:56 PM POST ANESTHESIA CARE UNIT NURSE) HEMOGLOBIN A1C 7.7(H) 4.0 - 6.0 % 12/07/2018 12:24 PM POST ANESTHESIA CARE UNIT NURSE [facility] EST. AVG GLUCOSE, A1C 174 mg/dL 12/07/2018 12:24 PM [facility] Blood Venipuncture / Unknown 12/06/2018 11:56 PM POST ANESTHESIA CARE UNIT NURSE 12/07/2018 12:08 AM POST ANESTHESIA CARE UNIT NURSE Narrative [facility] - 12/07/2018 12:24 PM POST ANESTHESIA CARE UNIT NURSE HGB A1C INTERPRETATION NORMAL: <5.7% PRE-DIABETES: 5.7 - 6.4% DIABETES: 6.5% OR GREATER Barrera Corral MD CHEMISTRY ORDERABLES Fi nal Result Performing Organization Address [facility] Co de Phone Number [facility] CLIA# [id number] [address] [place], [place] [address] from Last 3 Months or Most Recently Relevant to Health Maintenance Insurance MEDICAID [facility] DUAL COMPLETE MCR PPO D-SNP RX [facility] Medicare Part D RX INFOCROSSING Medicaid Advance Directives For more information, please contact: [phone] * Full Code (Latest Code Status on [...] 11:48 AM 04/25/2020 10:44 PM Care Teams Pallet Stone Positioner Relationship Specialty Start Date End Date Roverto Arnold MD [address] [place] [address] PCP - General 12/10/09
--- OUTSIDE RECORDS SUMMARY | 2025-07-15 13:40 | XMS_ITS | Encounter Summary ---
Author Organization [facility] Address [address] [place] [address] Care Team Providers Care Medical Claims Processor Name Role Phone Roverto Arnold MD Primary Care Provider [phone] Encounter Details Date Type Department Care Team (Latest Contact Info) Description 08/20/2004 Outpatient Historical [facility] General and Trauma Surgery-[address] [place] [address] Ted Chappell MD [address] [place] [address] [phone] CAROTID ART OCCL-NO INFARCT (Primary Dx); HEADACHE Social History Tobacco Use Types Packs/Day Years Used Date Smoking Tobacco: Never Assessed Comments Unknown Sex and Gender Information Value Date Recorded Sex Assigned at Not on file Legal Sex Female 2:56 AM CUPOLA CHARGER Gender Identity Not on file Sexual Orientation [...] COVID-19 09/16/2020 09/16/2020 09/16/2020 11:3 5 PM CUPOLA CHARGER COVID-19 09/17/2020 09/17/2020 10/07/2020 8:08 PM CUPOLA CHARGER documented as of this encounter Care Teams Medical Claims Processor Relationship Specialty Start Date End Date Roverto Arnold MD [address] [place] [address] PCP - General 12/10/09 documented as of this encounter
--- OUTSIDE RECORDS SUMMARY | 2025-07-15 13:40 | XMS_ITS | Encounter Summary ---
Author Organization [facility] Address [address] [place] [address] Care Team Providers Care Port Cdl A Driver Name Role Phone Roverto Arnold MD Primary Care Provider [phone] Encounter Details Date Type Department Care Team (Latest Contact Info) Description 01/26/2002 Outpatient Historical [facility] Cardiology- [place] [address] [place] [address] Charli Barahona MD NO ADDRESS ON FILE ANGINA PECTORIS NEC/NOS (Primary Dx); CHR ISCHEMIC HRT DIS NEC; Pure hypercholesterolem Social History Tobacco Use Types Packs/Day Years Used Date Smoking Tobacco: Never Assessed Comments Unknown Sex and Gender Information Value Date Recorded Sex Assigned at Not on file Legal Sex Female 2:56 AM DESKTOP TECHNICIAN Gender Identity Not on file Sexual [...] COVID-19 09/16/2020 09/16/2020 09/16/2020 11:3 5 PM DESKTOP TECHNICIAN COVID-19 09/17/2020 09/17/2020 10/07/2020 8:08 PM DESKTOP TECHNICIAN documented as of this encounter Care Teams Port Cdl A Driver Relationship Specialty Start Date End Date Roverto Arnold MD [address] [place] [address] PCP - General 12/10/09 documented as of this encounter
--- OUTSIDE RECORDS SUMMARY | 2025-07-15 13:40 | XMS_ITS | Encounter Summary ---
Author Organization [facility] Address [address] [place] [address] Care Team Providers Care Circuit Breaker Mechanic Name Role Phone Roverto Arnold MD Primary Care Provider [phone] Encounter Details Date Type Department Care Team (Latest Contact Info) Description 09/20/2003 Outpatient Historical [facility] [address] [place] [address] Jose G Talley MD [address] [place] [phone] DIABETES UNCOMPL ADULT-UNCONTRLLED (Primary Dx) Social History Tobacco Use Types Packs/Day Years Used Date Smoking Tobacco: Never Assessed Comments Unknown Sex and Gender Information Value Date Recorded Sex Assigned at Not on file Legal Sex Female 2:56 AM QUALITY PROJECT MANAGER Gender Identity Not on file Sexual [...] COVID-19 09/16/2020 09/16/2020 09/16/2020 11:3 5 PM QUALITY PROJECT MANAGER COVID-19 09/17/2020 09/17/2020 10/07/2020 8:08 PM QUALITY PROJECT MANAGER documented as of this encounter Care Teams Circuit Breaker Mechanic Relationship Specialty Start Date End Date Roverto Arnold MD [address] [place] [address] PCP - General 12/10/09 documented as of this encounter
--- OUTSIDE RECORDS SUMMARY | 2025-07-15 13:40 | XMS_ITS | Encounter Summary ---
Author Organization [facility] Address [address] [place] [address] Care Team Providers Care Mold Repairer Name Role Phone Roverto Arnold MD Primary Care Provider [phone] Encounter Details Date Type Department Care Team (Latest Contact Info) Description 08/20/2004 Outpatient Historical [facility] Cardiovascular Services [address] [place] [address] Markie Ramírez MD NO ADDRESS ON FILE TRANSIENT CEREBRAL ISCHEMIA NOS (Primary Dx) Social History Tobacco Use Types Packs/Day Years Used Date Smoking Tobacco: Never Assessed Comments Unknown Sex and Gender Information Value Date Recorded Sex Assigned at Not on file Legal Sex Female 2:56 AM WASHROOM ATTENDANT Gender Identity Not on file Sexual Orientation Not on file documented as of this encounter Plan of Treatment Not on file documented as of this encounter Visit Diagnoses Diagnosis Unspecified transient cerebral ischemia- Primary documented in this encounter Additional Health Concerns Infection Onset Date Last Indicated Resolved Time R/O COVID-19 09/16/2020 09/16/2020 09/16/2020 11:3 5 PM WASHROOM ATTENDANT COVID-19 09/17/2020 09/17/2020 10/07/2020 8:08 PM WASHROOM ATTENDANT documented as of this encounter Care Teams Mold Repairer Relationship Specialty Start Date End Date Roverto Arnold MD [address] [place] [address] PCP - General 12/10/09 documented as of this encounter
--- OUTSIDE RECORDS SUMMARY | 2025-07-15 13:40 | XMS_ITS | Encounter Summary ---
Author Organization [facility] Address [address] [place] [address] Care Team Providers Care Geologic Technician Name Role Phone Roverto Arnold MD Primary Care Provider [phone] Encounter Details Date Type Department Care Team (Latest Contact Info) Description 11/21/2003 Outpatient Historical [facility] [address] [place] [phone] Jose G Talley MD [address] [place] [phone] DIABETES UNCOMPL ADULT-UNCONTRLLED (Primary Dx) Social History Tobacco Use Types Packs/Day Years Used Date Smoking Tobacco: Never Assessed Comments Unknown Sex and Gender Information Value Date Recorded Sex Assigned at Not on file Legal Sex Female 2:56 AM PROCUREMENT INSPECTOR Gender Identity Not on file Sexual [...] COVID-19 09/16/2020 09/16/2020 09/16/2020 11:3 5 PM PROCUREMENT INSPECTOR COVID-19 09/17/2020 09/17/2020 10/07/2020 8:08 PM PROCUREMENT INSPECTOR documented as of this encounter Care Teams Geologic Technician Relationship Specialty Start Date End Date Roverto Arnold MD [address] [place] [address] PCP - General 12/10/09 documented as of this encounter
--- OUTSIDE RECORDS SUMMARY | 2025-07-15 13:40 | XMS_ITS | Encounter Summary ---
Author Organization [facility] Address [address] [place] [address] Care Team Providers Care Tunnel Drier Operator Name Role Phone Roverto Arnold MD Primary Care Provider Encounter Details Date Type Department Care Team (Latest Contact Info) Description 12/16/2004 Outpatient Historical [facility] Cardiac Kiln Firer Helper [address] [place] [address] Charli Barahona MD NO ADDRESS ON FILE CORON ATHEROSCL [place] CORON VESSEL (Primary Dx) Social History Tobacco Use Types Packs/Day Years Used Date Smoking Tobacco: Never Assessed Comments Unknown Sex and Gender Information Value Date Recorded Sex Assigned at Not on file Legal Sex Female 2:56 AM MOTTLER OPERATOR Gender Identity Not on file Sexual Orientation Not on file documented as of this encounter Plan of Treatment Not on file documented as of this encounter Procedures Procedure Name Priority Date/Time Associated Diagnosis Comments PT AND APTT Routine 12/16/2004 9:12 AM MOTTLER OPERATOR CBC WITHOUT DIFFERENTIAL Routine 12/16/2004 9:12 AM MOTTLER OPERATOR BASIC METABOLIC PANEL Routine 12/16/2004 9:12 AM MOTTLER OPERATOR documented in this encounter Results * PT AND APTT (12/16/2004 9:12 AM MOTTLER OPERATOR) PROTIME 13.1 12.4 - 14.9 Secs INTERFACE SYSTEM Comment: As of 04 note change in normal range. INR 0.9 INTERFACE SYSTEM Comment: Expected Values for INR: DVT/PE Goal INR 2.5; range 2.0 - 3.0 Valve Replacement Tissue Goal INR 2.5; range 2.0 - 3.0 Mechanical Goal INR 3.0; range 2.5 - 3.5 POST-AK Goal INR 2.5; range 2.0 - 3.0 or Goal 3.0; range 2.5 - 3.5 Atrial Fibrillation Goal INR 2.5; range 2.0 - 3.0 Ischemic Stroke Goal INR 2.5; range 2.0 - 3.0 For additional information see Guidelines for Anticoagulation available from the pharmacy Matt Matson PTT 28.0 24.3 - 37.5 Secs INTERFACE SYSTEM Comment:Therapeutic Range: 12/16/2004 9:12 AM MOTTLER OPERATOR Charli Barahona MD HEMATOLOGY ORDERABLES Jessica l Result INTERFACE SYSTEM Refer to clinic/hospital department * (ABNORMAL) CBC WITHOUT DIFFERENTIAL (12/16/2004 9:12 AM MOTTLER OPERATOR) [facility] WBC 4.4(L) 4.8 - 10.8 K/ul INTERFACE [...] 0.2 K/ul INTERFACE SYSTEM 12/16/2004 9:12 AM MOTTLER OPERATOR Charli Barahona MD HEMATOLOGY ORDERABLES Jessica l Result Performing Organization Address City/[facility] Co de Phone Number INTERFACE SYSTEM Refer to clinic/hospital department * (ABNORMAL) BASIC METABOLIC PANEL (12/16/2004 9:12 AM MOTTLER OPERATOR) GLUCOSE 112(H) 70 - 110 mg/dL INTERFACE [...] 10.5 mg/dL INTERFACE SYSTEM 12/16/2004 9:12 AM MOTTLER OPERATOR Charli Barahona MD CHEMISTRY ORDERABLES Final Result Performing Organization Address [facility] Co de Phone Number INTERFACE SYSTEM Refer to clinic/hospital department documented in this encounter Visit Diagnoses Diagnosis Coronary atherosclerosis of [place] coronary artery- Primary documented in this encounter Additional Health Concerns Infection Onset Date Last Indicated Resolved Time R/O COVID-19 09/16/2020 09/16/2020 09/16/2020 11:3 5 PM MOTTLER OPERATOR COVID-19 09/17/2020 09/17/2020 10/07/2020 8:08 PM MOTTLER OPERATOR documented as of this encounter Care Teams Tunnel Drier Operator Relationship Specialty Start Date End Date Roverto Arnold MD [address] [place] [address] PCP - General 12/10/09 documented as of this encounter
--- OUTSIDE RECORDS SUMMARY | 2025-07-15 13:40 | XMS_ITS | Encounter Summary ---
Author Organization [facility] Address [address] [place] [address] Care Team Providers Care Store Assistant Name Role Phone Roverto Arnold MD Primary Care Provider [phone] Encounter Details Date Type Department Care Team (Latest Contact Info) Description 12/20/2000 Outpatient Historical [facility] Cardiology- [place] [address] [place] [address] Charli Barahona MD NO ADDRESS ON FILE Other and unspecified angina pectoris (Primary Dx); Other specified forms of chronic ischemic heart disease; Mixed hyperlipidemia Social History Tobacco Use Types Packs/Day Years Used Date Smoking Tobacco: Never Assessed Comments Unknown Sex and Gender Information Value Date Recorded Sex Assigned at Not on file Legal Sex Female 2:56 AM GREEN PROMOTIONS SPECIALIST Gender Identity Not on file Sexual [...] COVID-19 09/16/2020 09/16/2020 09/16/2020 11:3 5 PM GREEN PROMOTIONS SPECIALIST COVID-19 09/17/2020 09/17/2020 10/07/2020 8:08 PM GREEN PROMOTIONS SPECIALIST documented as of this encounter Care Teams Store Assistant Relationship Specialty Start Date End Date Roverto Arnold MD [address] [place] [address] PCP - General 12/10/09 documented as of this encounter
--- OUTSIDE RECORDS SUMMARY | 2025-07-15 13:40 | XMS_ITS | Encounter Summary ---
Author Organization [facility] Address [address] [facility] [address]: [place] [address] Care Team Providers Care Spent Grain Dryer Name Role Phone Roverto Arnold MD Primary Care Provider [phone] Encounter Details Date Type Department Care Team (Late st Contact Info) Description 12/30/2000 Outpatient Historical Charli Barahona MD NO ADDRESS ON FILE Social History Tobacco Use Types Packs/Day Years Used Date Smoking Tobacco: Never Assessed Comments Unknown Sex and Gender Information Value Date Recorded Sex Assigned at Not on file Legal Sex Female 2:56 AM REPAIR ELECTRIC MOTOR ASSEMBLER Gender Identity Not on file Sexual Orientation Not on file documented as of this encounter Plan of Treatment Not on file documented as of this encounter Visit Diagnoses Not on filedocumented in this encounter Additional Health Concerns Infection Onset Date Last Indicated Resolved Time R/O COVID-19 09/16/2020 09/16/2020 09/16/2020 11:3 5 PM REPAIR ELECTRIC MOTOR ASSEMBLER COVID-19 09/17/2020 09/17/2020 10/07/2020 8:08 PM REPAIR ELECTRIC MOTOR ASSEMBLER documented as of this encounter Care Teams Spent Grain Dryer Relationship Specialty Start Date End Date Roverto Arnold MD [address] [place] [facility] [place] [address] PCP - General 12/10/09 documented as of this encounter
--- OUTSIDE RECORDS SUMMARY | 2025-07-15 13:40 | XMS_ITS | Encounter Summary ---
Author Organization [facility] Address [address] [place] [address] Care Team Providers Care Structures Engineer Name Role Phone Roverto Arnold MD Primary Care Provider [phone] Encounter Details Date Type Department Care Team (Latest Contact Info) Description 06/01/2001 Outpatient Historical [facility] Breast [place] [address] [facility] [address] [place] [address] Natasha Avelar MD NO ADDRESS ON FILE Other screening mammogram (Primary Dx) Social History Tobacco Use Types Packs/Day Years Used Date Smoking Tobacco: Never Assessed Comments Unknown Sex and Gender Information Value Date Recorded Sex Assigned at Not on file Legal Sex Female 2:56 AM FIRE ALARM TECHNICIAN Gender Identity Not on file Sexual Orientation Not on file documented as of this encounter Plan of Treatment Not on file documented as of this encounter Visit Diagnoses Diagnosis Other screening mammogram- Primary documented in this encounter Additional Health Concerns Infection Onset Date Last Indicated Resolved Time R/O COVID-19 09/16/2020 09/16/2020 09/16/2020 11:3 5 PM FIRE ALARM TECHNICIAN COVID-19 09/17/2020 09/17/2020 10/07/2020 8:08 PM FIRE ALARM TECHNICIAN documented as of this encounter Care Teams Structures Engineer Relationship Specialty Start Date End Date Roverto Arnold MD [address] [place] [address] PCP - General 12/10/09 documented as of this encounter
--- OUTSIDE RECORDS SUMMARY | 2025-07-15 13:40 | XMS_ITS | Encounter Summary ---
Author Organization [facility] Address [address] [place] [address] Care Team Providers Care Chain Machine Operator Name Role Phone Roverto Arnold MD Primary Care Provider [phone] Encounter Details Date Type Department Care Team (Late st Contact Info) Description 09/03/2003 Outpatient Historical [facility] Social History Tobacco Use Types Packs/Day Years Used Date Smoking Tobacco: Never Assessed Comments Unknown Sex and Gender Information Value Date Recorded Sex Assigned at Not on file Legal Sex Female 2:56 AM CHEMICAL PROCESS ENGINEER Gender Identity Not on file Sexual Orientation Not on file documented as of this encounter Plan of Treatment Not on file documented as of this encounter Visit Diagnoses Not on filedocumented in this encounter Additional Health Concerns Infection Onset Date Last Indicated Resolved Time R/O COVID-19 09/16/2020 09/16/2020 09/16/2020 11:3 5 PM CHEMICAL PROCESS ENGINEER COVID-19 09/17/2020 09/17/2020 10/07/2020 8:08 PM CHEMICAL PROCESS ENGINEER documented as of this encounter Care Teams Chain Machine Operator Relationship Specialty Start Date End Date Roverto Arnold MD [address] [place] [address] PCP - General 12/10/09 documented as of this encounter
--- OUTSIDE RECORDS SUMMARY | 2025-07-15 13:40 | XMS_ITS | Encounter Summary ---
Author Organization [facility] Address [address] [place] [address] Care Team Providers Care Healthcare Applications Analyst Name Role Phone Roverto Arnold MD Primary Care Provider [phone] Encounter Details Date Type Department Care Team (Latest Contact Info) Description 11/03/1999 Outpatient Historical [facility] Cardiology- [place] [address] [place] [address] Charli Barahona MD NO ADDRESS ON FILE Other and unspecified angina pectoris (Primary Dx); Other specified forms of chronic ischemic heart disease; Mixed hyperlipidemia; Benign hypertension Social History Tobacco Use Types Packs/Day Years Used Date Smoking Tobacco: Never Assessed Comments Unknown Sex and Gender Information Value Date Recorded Sex Assigned at Not on file Legal Sex Female 2:56 AM DOUGH MIXER HELPER Gender Identity Not on file Sexual [...] COVID-19 09/16/2020 09/16/2020 09/16/2020 11:3 5 PM DOUGH MIXER HELPER COVID-19 09/17/2020 09/17/2020 10/07/2020 8:08 PM DOUGH MIXER HELPER documented as of this encounter Care Teams Healthcare Applications Analyst Relationship Specialty Start Date End Date Roverto Arnold MD [address] [place] [address] PCP - General 12/10/09 documented as of this encounter
--- OUTSIDE RECORDS SUMMARY | 2025-07-15 13:40 | XMS_ITS | Encounter Summary ---
Author Organization [facility] Address [address] [place] [address] Care Team Providers Care Bombsight Specialist Name Role Phone Roverto Arnold MD Primary Care Provider [phone] Encounter Details Date Type Department Care Team (Latest Contact Info) Description 08/24/2005 Outpatient Historical [facility] Cardiovascular Services [address] [place] [address] Markie Ramírez MD NO ADDRESS ON FILE CAROTID ART OCCL-NO INFARCT (Primary Dx) Social History Tobacco Use Types Packs/Day Years Used Date Smoking Tobacco: Never Assessed Comments Unknown Sex and Gender Information Value Date Recorded Sex Assigned at Not on file Legal Sex Female 2:56 AM ICE CARVER Gender Identity Not on file Sexual Orientation Not on file documented as of this encounter Plan of Treatment Not on file documented as of this encounter Visit Diagnoses Diagnosis Occlusion and stenosis of carotid artery without mention of cerebral infarction- Primary documented in this encounter Additional Health Concerns Infection Onset Date Last Indicated Resolved Time R/O COVID-19 09/16/2020 09/16/2020 09/16/2020 11:3 5 PM ICE CARVER COVID-19 09/17/2020 09/17/2020 10/07/2020 8:08 PM ICE CARVER documented as of this encounter Care Teams Bombsight Specialist Relationship Specialty Start Date End Date Roverto Arnold MD [address] [place] [address] PCP - General 12/10/09 documented as of this encounter
--- OUTSIDE RECORDS SUMMARY | 2025-07-15 13:40 | XMS_ITS | Clinical Summary ---
Author Organization [facility] de Address [address] [place] [address] Phone Care Team Providers Care Import Manager Name Role Phone Roverto Arnold MD Primary Care Provider [phone] Allergies Active Allergy Reactions Criticality Noted Date [...] (02/19/2021): Added automatically from request for surgery [id number] Unstable angina 12/06/2018 06/10/2019 Abnormal coronary angiogram [...] on file Legal Sex Female 12:39 PM MICROARRAY ANALYST Gender Identity Not on file Sexual Orientation Not on file Last Filed Vital Signs Vital Sign Reading Time Taken Comments Blood Pressure 105/42 08/09/2023 2:10 PM CDT Pulse 62 08/09/2023 2:10 PM CDT Temperature 36.1 C (97 F) 11/14/2022 7:53 AM MICROARRAY ANALYST Respiratory Rate 18 08/09/2023 2:10 PM CDT [...] years Discontinued Medical Devices Implanted Type Area Psychological Anthropologist Device Identifier Shelf Expiration Date Model / Serial / Lot Sealant Progel Pleural 4ml [id number] - [id number] Implanted:Qt y: 1 on 02/20/2013 by Fabio Islas MD Biological N/A: Chest CR BARD- DAVOL INC 09/22/2014 [id number] / / [id number] Sealant Mynx Color Corrector 6-7fr [id number] - [id number] Implanted: (Quantity not on file) Closure Device Right: Groin ACCESS CLOSURE 01/22/2022 [id number] / / [id number] Closure Perclose Proglide 11954 - [id number] Implanted:Qt y: 1 on 02/05/2021 Closure Device Right: Groin DUDLEY- VASC DEVICE 10/24/2022 [id number] / / [id number] [place] Ptfe Thck 1.6mmx2.5x10 .2cm [id number] - [id number] Implanted:Qt y: 1 on 02/20/2013 by Fabio Islas MD Graft N/A: Chest CR BARD- GUILLERMO VASC INC 08/22/2017 [id number] / / [id number] [place] Ptfe Thck 1.6mmx2.5x2. 5cm [id number] - [id number] Implanted:Qt y: 1 on 02/20/2013 Graft CR BARD- GUILLERMO VASC INC 12/22/2017 [id number] / / [id number] Sealant Floseal W/ Adptr 10ml [id number] - [id number] Implanted:Qt y: 1 on 02/20/2013 by Fabio Islas MD Sealant N/A: Chest LOPES- BIOSCIENCE 02/20/2014 [id number] / / [id number] Sealant Floseal W/ Adptr 10ml [id number] - [id number] Implanted:Qt y: 1 on 02/20/2013 by Niranjan Reilly MD Sealant LOPES- BIOSCIENCE 04/23/2014 [id number] / / [id number] Promus Premier 2.25x12 Implanted: (Quantity not on file) Stent Stent Synergy Mr 4.0x28mm Drug Elut [id number] - [id number] Implanted: (Quantity not on file) Stent Right: Coronary [employer] SCI MAULIK 09/12/2021 [id number] / / [id number] Stent Synergy Mr 4.0x12mm Drug Elut [id number] - [id number] Implanted:Qt y: 1 on 02/05/2021 by Bird Hernandez MD Stent Right: Coronary [employer] MAULIK 08/27/2022 [id number] / / [id number] Stent Synergy Mr 4.0x8mm Drug Elut [id number] - [id number] Implanted:Qt y: 1 on 02/05/2021 by Bird Hernandez MD Stent Left: Coronary [employer] MAULIK 08/05/2022 [id number] / / [id number] Stent Synergy Mr 2.5x16mm Drug Elut [id number] 50 - [id number] Implanted:Qt y: 1 on 02/05/2021 by Bird Hernandez MD Stent Left: Coronary [employer] MAULIK 09/11/2022 [id number] / / [id number] Marker Graft 1001-83 - [id number] Implanted:Qt y: 1 on 02/20/2013 by Fabio Islas MD N/A: Chest ROMAN INT 05/22/2016 1001-83 / / [id number] Explanted Type Area Psychological Anthropologist Device Identifier Shelf Expiration Date Model / Serial / Lot Stent Graftmaster 4.5x19 Rx [id number] - [id number] Implanted:Qty: 1 Explanted:Qty: 1 on 04/26/2020 Stent Right: Coronary DUDLEY- VASC DEVICE 02/21/2021 [id number] / [id number] Description:inserted and rem chayo undeployed and intact [...] MD - 08/09/2023 1:56 PM CDT [facility] GI Patient Name: Yadira Evans Procedure Date: [...] Scope Out: 1:52:34 PM [address] [place], [place] Barrera Chavis MD GI PROCEDURE ORDERA [...] clinical management available online at [email or web address] Enter [employer]io for Select DXA and the left Femoral [...] clinical management available online at [email or web address] Enter [employer] for Select DXA and the left Femoral Neck BMD value. Marie Askew NP DIAGNOSTIC IMAGING ORDERA BLES Final Result * (ABNORMAL) LIPID PANEL (02/04/2021 8:33 AM CDT) [facility] CHOLESTEROL 231(H) <200 mg/dL 02/04/2021 9:30 PM CDT [facility] TRIGLYCERIDE 493(H) <150 mg/dL 02/04/2021 9:30 PM CDT [facility] HDL 40 40 - 59 mg/dL 02/04/2021 9:30 PM CDT [facility] LDL CALCULATED ^ 02/04/2021 9:30 PM CDT [facility] Annamaria Lanza NP CHEMISTRY ORDERABLES Final Result [facility] CLIA# [id number] [address] [place] [address] * HEMOGLOBIN A1C (05/10/2019) ABSTRACTED HGB A1C [...] Recently Relevant to Health Maintenance Insurance MEDICAID [facility] DUAL COMPLETE PPO [facility] [id number] * Guarantor: YADIRA EVANS Account Type Relation to Patient Date of Phone Billing Address Personal/Family [address] [place] [address] RX INFOCROSSING Medicaid RX [facility] Medicare Part D Advance Directives For more information, please contact: [phone] * Full Code (Latest Code Status on [...] 9:42 PM 11/13/2022 11:21 AM Care Teams Import Manager Relationship Specialty Start Date End Date Roverto Arnold MD [facility] [place] [address] PCP - General 12/10/09
--- OUTSIDE RECORDS SUMMARY | 2025-07-15 13:40 | XMS_ITS | Encounter Summary ---
Author Organization [facility] Address [address] [place] [address] Care Team Providers Care Can Patcher Name Role Phone Roverto Arnold MD Primary Care Provider [phone] Encounter Details Date Type Department Care Team (Latest Contact Info) Description 07/28/2001 Outpatient Historical [facility] Cardiology- [place] [address] [place] [address] Charli Barahona MD NO ADDRESS ON FILE Other and unspecified angina pectoris (Primary Dx); Other specified forms of chronic ischemic heart disease; Mixed hyperlipidemia Social History Tobacco Use Types Packs/Day Years Used Date Smoking Tobacco: Never Assessed Comments Unknown Sex and Gender Information Value Date Recorded Sex Assigned at Not on file Legal Sex Female 2:56 AM SLOT FLOOR ATTENDANT Gender Identity Not on file Sexual [...] COVID-19 09/16/2020 09/16/2020 09/16/2020 11:3 5 PM SLOT FLOOR ATTENDANT COVID-19 09/17/2020 09/17/2020 10/07/2020 8:08 PM SLOT FLOOR ATTENDANT documented as of this encounter Care Teams Can Patcher Relationship Specialty Start Date End Date Roverto Arnold MD [address] [place] [address] PCP - General 12/10/09 documented as of this encounter
--- OUTSIDE RECORDS SUMMARY | 2025-07-15 13:40 | XMS_ITS | Encounter Summary ---
Author Organization [facility] Address [address] [place] [address] Care Team Providers Care Director Industrial Relations Name Role Phone Roverto Arnold MD Primary Care Provider [phone] Reason for Referral * Radiology Services (Routine) - Closed Specialty Diagnoses / Procedures Referred By Contac t Referred To Contact Radiology Diagnoses Hematoma Procedures US PELVIS LIMITED NON OB US RIGHT UPR QUADRANT Bird Hernandez MD Phone: tel: fax: [facility] Ultrasound [address] [place] [address] Phone: tel: fax: Referral ID Status Reason Start Date Expiration Date Visits Re quested Visits Authorized [id number] Closed 12/26/2018 01/26/2020 1 1 ERGARTEN TEACHER Encounter Details Date Type Department Care Team (Late st Contact Info) Description 12/26/2018 Ancillary Orders [facility] Cardiology- [place] [address] [place] [address] Bird Hernandez MD [address] [facility] [address] [place] [address] Hematoma Social History Tobacco Use Types Packs/Day Years Used Date Smoking Tobacco: Former Cigarettes 4 30 0 07/06/1958 - 07/06/1988 Smokeless Tobacco: Never Alcohol Use Standard Drinks/Week Comments No 0 (1 standard drink = 0.6 oz pur e alcohol) Comments No Sex and Gender Information Value Date Recorded Sex Assigned at Not on file Legal Sex Female 2:56 AM KINDERGARTEN TEACHER Gender Identity Not on file Sexual Orientation Not on file Occupation Industry Job Start Date Job End Date Not on file Not on file Not on file Not on file documented as of this encounter Plan of Treatment Not on file documented as of this encounter Results * US PELVIS LIMITED NON OB (12/26/2018 4:39 PM KINDERGARTEN TEACHER) Anatomical Region Laterality Modality Pelvis Ultrasound 12/26/2018 4:39 PM KINDERGARTEN TEACHER Impressions 12/27/2018 11:36 AM KINDERGARTEN TEACHER IMPRESSION: 7.6 x 5 x 5.2 cm likely resolving hematoma within the right lower quadrant. [id number] Narrative 12/27/2018 11:36 AM KINDERGARTEN TEACHER US PELVIS LIMITED NON OB Reason For [...] resolving hematoma within the right lower quadrant. [id number] us Bird Hernandez MD ORDERABLES Final Result documented in this encounter Visit Diagnoses Diagnosis Hematoma Contusion of unspecified site Hematoma Contusion of unspecified site documented in this encounter Additional Health Concerns Infection Onset Date Last Indicated Resolved Time R/O COVID-19 09/16/2020 09/16/2020 09/16/2020 11:3 5 PM KINDERGARTEN TEACHER COVID-19 09/17/2020 09/17/2020 10/07/2020 8:08 PM KINDERGARTEN TEACHER documented as of this encounter Care Teams Director Industrial Relations Relationship Specialty Start Date End Date Roverto Arnold MD [address] [place] [address] PCP - General 12/10/09 documented as of this encounter
--- OUTSIDE RECORDS SUMMARY | 2025-07-15 13:40 | XMS_ITS | Encounter Summary ---
Author Organization [facility] Address [address] [place] [address] Care Team Providers Care Grinder Hardboard Name Role Phone Roverto Arnold MD Primary Care Provider [phone] Encounter Details Date Type Department Care Team [...] on file Legal Sex Female 2:56 AM DUPLICATION SPECIALIST Gender Identity Not on file Sexual Orientation Not on file documented as of this encounter Plan of Treatment Not on file documented as of this encounter Procedures Procedure Name Priority Date/Time Associated Diagnosis Comments POC GLUCOSE Routine 10/25/2004 5:43 AM DUPLICATION SPECIALIST POC GLUCOSE Routine 10/24/2004 5:17 PM DUPLICATION SPECIALIST documented in this encounter Results * (ABNORMAL) POC GLUCOSE (10/25/2004 5:43 AM DUPLICATION SPECIALIST) GLUCOSE POC 108(H) 60 - 100 mg/dL INTERFACE SYSTEM 10/25/2004 5:43 AM DUPLICATION SPECIALIST us Charli Barahona MD POINT OF CARE TESTING Jessica l Result INTERFACE SYSTEM Refer to clinic/hospital department * POC GLUCOSE (10/24/2004 5:17 PM DUPLICATION SPECIALIST) GLUCOSE POC 94 60 - 100 mg/dL INTERFACE SYSTEM 10/24/2004 5:17 PM DUPLICATION SPECIALIST Charli Barahona MD POINT OF CARE TESTING Jessica l Result Performing Organization Address [facility] Co de Phone Number INTERFACE SYSTEM Refer to clinic/hospital department documented in this encounter Visit Diagnoses Diagnosis Coronary atherosclerosis of unspecified type of vessel, [place] or graft- Primary documented in this encounter Additional Health Concerns Infection Onset Date Last Indicated Resolved Time R/O COVID-19 09/16/2020 09/16/2020 09/16/2020 11:3 5 PM DUPLICATION SPECIALIST COVID-19 09/17/2020 09/17/2020 10/07/2020 8:08 PM DUPLICATION SPECIALIST documented as of this encounter Care Teams Grinder Hardboard Relationship Specialty Start Date End Date Roverto Arnold MD [address] [place] [address] PCP - General 12/10/09 documented as of this encounter
--- OUTSIDE RECORDS SUMMARY | 2025-07-15 13:40 | XMS_ITS | Encounter Summary ---
Author Organization [facility] Address [address] [place] [address] Care Team Providers Care Packaging Coordinator Name Role Phone Roverto Arnold MD Primary Care Provider [phone] Encounter Details Date Type Department Care Team (Latest Contact Info) Description 02/09/2006 Outpatient Historical [facility] Cardiovascular Services [address] [place] [address] Markie Ramírez MD NO ADDRESS ON FILE Generalized and Unspecified Atherosclerosis (Primary Dx) Social History Tobacco Use Types Packs/Day Years Used Date Smoking Tobacco: Never Assessed Comments Unknown Sex and Gender Information Value Date Recorded Sex Assigned at Not on file Legal Sex Female 2:56 AM SURGICAL CONSULTANT Gender Identity Not on file Sexual Orientation Not on file documented as of this encounter Plan of Treatment Not on file documented as of this encounter Visit Diagnoses Diagnosis Generalized and unspecified atherosclerosis- Primary documented in this encounter Additional Health Concerns Infection Onset Date Last Indicated Resolved Time R/O COVID-19 09/16/2020 09/16/2020 09/16/2020 11:3 5 PM SURGICAL CONSULTANT COVID-19 09/17/2020 09/17/2020 10/07/2020 8:08 PM SURGICAL CONSULTANT documented as of this encounter Care Teams Packaging Coordinator Relationship Specialty Start Date End Date Roverto Arnold MD [address] [place] [address] PCP - General 12/10/09 documented as of this encounter
--- OUTSIDE RECORDS SUMMARY | 2025-07-15 13:40 | XMS_ITS | Encounter Summary ---
Author Organization [facility] Address [address] [place] [address] Care Team Providers Care Rubber Compounder Formulator Name Role Phone Roverto Arnold MD Primary Care Provider [phone] Encounter Details Date Type Department Care Team (Latest Contact Info) Description 04/21/2021 Ancillary Orders [facility] Pre-Registration [place] CALL TO MAKE APPOINTMENT ONLY [address] [place] [address] Marie Askew NP [address] [place] [address] [place] [address] Asymptomatic menopause Social History Tobacco Use Types Packs/Day Years Used Date Smoking Tobacco: Former Cigarettes 4 30 0 07/06/1958 - 07/06/1988 Smokeless Tobacco: Never Alcohol Use Standard Drinks/Week Comments No 0 (1 standard drink = 0.6 oz pur e alcohol) Comments No Sex and Gender Information Value Date Recorded Sex Assigned at Not on file Legal Sex Female 2:56 AM MANAGING MANAGER Gender Identity Not on file Sexual Orientation Not on file Occupation Industry Job Start Date Job End Date Not on file Not on file Not on file Not on file documented as of this encounter Plan of Treatment Not on file documented as of this encounter Visit Diagnoses Diagnosis Asymptomatic menopause documented in this encounter Care Teams Rubber Compounder Formulator Relationship Specialty Start Date End Date Roverto Arnold MD [address] [place] [address] PCP - General 12/10/09 documented as of this encounter
--- OUTSIDE RECORDS SUMMARY | 2025-07-15 13:40 | XMS_ITS | Encounter Summary ---
Author Organization [facility] Address [address] [place] [address] Care Team Providers Care Media Marketing Director Name Role Phone Roverto Arnold MD Primary Care Provider [phone] Encounter Details Date Type Department Care Team (Late st Contact Info) Description 09/04/2003 Outpatient Historical [facility] Social History Tobacco Use Types Packs/Day Years Used Date Smoking Tobacco: Never Assessed Comments Unknown Sex and Gender Information Value Date Recorded Sex Assigned at Not on file Legal Sex Female 2:56 AM MATCHER OFFBEARER Gender Identity Not on file Sexual Orientation Not on file documented as of this encounter Plan of Treatment Not on file documented as of this encounter Visit Diagnoses Not on filedocumented in this encounter Additional Health Concerns Infection Onset Date Last Indicated Resolved Time R/O COVID-19 09/16/2020 09/16/2020 09/16/2020 11:3 5 PM MATCHER OFFBEARER COVID-19 09/17/2020 09/17/2020 10/07/2020 8:08 PM MATCHER OFFBEARER documented as of this encounter Care Teams Media Marketing Director Relationship Specialty Start Date End Date Roverto Arnold MD [address] [place] [address] PCP - General 12/10/09 documented as of this encounter
--- OUTSIDE RECORDS SUMMARY | 2025-07-15 13:40 | XMS_ITS | Encounter Summary ---
Author Organization [facility] Address [address] [place] [address] Care Team Providers Care Client Service And Consulting Manager Name Role Phone Roverto Arnold MD Primary Care Provider [phone] Reason for Referral * Outpatient Services (Routine) - Closed Specialty Diagnoses / Procedures Referred By Contac t Referred To Contact Cardiology Diagnoses Carotid artery bruit Coronary artery disease Procedures US CAROTID DOPPLER Marie Askew NP [address] [place] [address] Phone: tel: fax: [facility] Cardiovascular Services [address] [place] [address] Phone: tel: fax: Referral ID Status Reason Start Date Expiration Date Visits Re quested Visits Authorized [id number] Closed 07/29/2011 07/28/2012 1 1 * Outpatient Services (Routine) - Closed Specialty Diagnoses / Procedures Referred By Contac t Referred To Contact Diagnoses Shoulder pain Procedures MRI SHOULDER WO CONTRAST RIGHT Marie Askew NP [address] [place] [address] Phone: tel: fax: Referral ID Status Reason Start Date Expiration Date Visits Re quested Visits Authorized [id number] Closed 07/29/2011 07/28/2012 1 1 Encounter Details Date Type Department Care Team (Latest Contact Info) Description 07/29/2011 Ancillary Orders [facility] Pre-Registration [place] CALL TO MAKE APPOINTMENT ONLY [address] [place] [address] Marie Askew NP [address] [place] [address] Shoulder pain; Decreased range of motion of [...] on file Legal Sex Female 2:56 AM TEST AND TURN UP TECHNICIAN Gender Identity Not on file Sexual [...] and correlate clinically. [email or web address] - uploaded from [employer]- Narrative 08/11/2011 2:49 PM CDT Exam: MRI [...] and correlate clinically. [email or web address] - uploaded from [employer]- us Marie Askew NP MR ORDERABLES Final Res ult * US CAROTID DOPPLER (08/11/2011 10:55 AM CDT) Anatomical Region Laterality Modality Neck Ultrasound 08/11/2011 9:39 AM CDT Narrative 08/11/2011 10:58 AM CDT [facility] Cardiovascular Services Noninvasive Vascular Laboratory [address] [place] [address] Noninvasive Vascular Lab Cerebrovascular Exam Carotid Duplex Patient: Yadira Cruz Study ID: US CAROTID DOPPL Gender: F : 1945 Age: 65 Room: Height: Weight: BSA: Pt status: Outpatient Study Date: 08/11/2011 Study Time: 09:39 AM BSA: Ordering: Rosa Elena Askew Interpreting:Ned Vega MD Remote Encoding Operations Supervisor: Alma Coffey RVT History: A bruit [...] - Left vertebral - 0.43m/sec Antegrade flow [facility] is accredited with the Intersocietal Commission for the Accreditation of Vascular Laboratories (ICAVL) Prepared and Electronically Authenticated Ned Vega MD Confirmed 08/11/2011 10:58 Procedure Note Ned Vega MD - 08/11/2011 [facility] Cardiovascular Services Noninvasive Vascular Laboratory [address] [place] [address] Noninvasive Vascular Lab Cerebrovascular Exam Carotid Duplex Patient: Yadira Cruz Study ID: US CAROTID DOPPL Gender: Jerad : 1945 Age: 65 Room: Height: Weight: BSA: Pt status: Outpatient Study Date: 08/11/2011 Study Time: 09:39 AM BSA: Ordering: Rosa Elena Askew Interpreting:Ned Vega MD Remote Encoding Operations Supervisor: Alma Coffey RVT History: A bruit [...] - Left vertebral - 0.43m/sec Antegrade flow [facility] is accredited with the Intersocietal [...] Coronary atherosclerosis of unspecified type of vessel, [place] or graft Carotid artery bruit Other symptoms involving cardiovascular system Coronary artery disease Coronary atherosclerosis of unspecified type of vessel, [place] or graft Shoulder pain Pain in joint, shoulder region documented in this encounter Additional Health Concerns Infection Onset Date Last Indicated Resolved Time R/O COVID-19 09/16/2020 09/16/2020 09/16/2020 11:3 5 PM TEST AND TURN UP TECHNICIAN COVID-19 09/17/2020 09/17/2020 10/07/2020 8:08 PM TEST AND TURN UP TECHNICIAN documented as of this encounter Care Teams Client Service And Consulting Manager Relationship Specialty Start Date End Date Roverto Arnold MD [address] [place] [address] PCP - General 12/10/09 documented as of this encounter
--- OUTSIDE RECORDS SUMMARY | 2025-07-15 13:40 | XMS_ITS | Encounter Summary ---
Author Organization [facility] Address [address] [place] [address] Care Team Providers Care Senior Internet Sales Consultant Name Role Phone Roverto Arnold MD Primary Care Provider [phone] Encounter Details Date Type Department Care Team (Late st Contact Info) Description 01/17/[address] [facility] [address] [place] [address] Social History Tobacco Use Types Packs/Day Years Used Date Smoking Tobacco: Never Assessed Comments Unknown Sex and Gender Information Value Date Recorded Sex Assigned at Not on file Legal Sex Female 2:56 AM AEROSPACE CONTROL AND WARNING SYSTEMS Gender Identity Not on file Sexual Orientation Not on file documented as of this encounter Plan of Treatment Not on file documented as of this encounter Visit Diagnoses Not on filedocumented in this encounter Additional Health Concerns Infection Onset Date Last Indicated Resolved Time R/O COVID-19 09/16/2020 09/16/2020 09/16/2020 11:3 5 PM AEROSPACE CONTROL AND WARNING SYSTEMS COVID-19 09/17/2020 09/17/2020 10/07/2020 8:08 PM AEROSPACE CONTROL AND WARNING SYSTEMS documented as of this encounter Care Teams Senior Internet Sales Consultant Relationship Specialty Start Date End Date Roverto Arnold MD [address] [place], [place] [address] PCP - General 12/10/09 documented as of this encounter
--- OUTSIDE RECORDS SUMMARY | 2025-07-15 13:40 | XMS_ITS | Encounter Summary ---
Author Organization [facility] Address [address] [place] [address] Care Team Providers Care Managing Consultant Name Role Phone Roverto Arnold MD Primary Care Provider [phone] Encounter Details Date Type Department Care Team (Latest Contact Info) Description 08/24/2005 Outpatient Historical [facility] General and Trauma Surgery-[address] [place] [address] CAROTID ART OCCL-NO INFARCT (Primary Dx); PERIPH VASCULAR DIS NOS; DIABETES MELLITUS TYPE II-UNCOMPL (CMS/HCC); Pain in limb Social History Tobacco Use Types Packs/Day Years Used Date Smoking Tobacco: Never Assessed Comments Unknown Sex and Gender Information Value Date Recorded Sex Assigned at Not on file Legal Sex Female 2:56 AM CAST ASSOCIATE Gender Identity Not on file Sexual [...] COVID-19 09/16/2020 09/16/2020 09/16/2020 11:3 5 PM CAST ASSOCIATE COVID-19 09/17/2020 09/17/2020 10/07/2020 8:08 PM CAST ASSOCIATE documented as of this encounter Care Teams Managing Consultant Relationship Specialty Start Date End Date Roverto Arnold MD [address] [place] [address] PCP - General 12/10/09 documented as of this encounter
--- OUTSIDE RECORDS SUMMARY | 2025-07-15 13:40 | XMS_ITS | Encounter Summary ---
Author Organization [facility] Address [address] Stephen: [place] [address] Care Team Providers Care Bumper Machine Operator Name Role Phone Roverto Arnold MD Primary Care Provider [phone] Encounter Details Date Type Department Care Team (Late st Contact Info) Description 01/17/2002 Outpatient Historical Yuan Plata MD NO ADDRESS ON FILE Social History Tobacco Use Types Packs/Day Years Used Date Smoking Tobacco: Never Assessed Comments Unknown Sex and Gender Information Value Date Recorded Sex Assigned at Not on file Legal Sex Female 2:56 AM LIBRARY SPECIALIST Gender Identity Not on file Sexual Orientation Not on file documented as of this encounter Plan of Treatment Not on file documented as of this encounter Visit Diagnoses Not on filedocumented in this encounter Additional Health Concerns Infection Onset Date Last Indicated Resolved Time R/O COVID-19 09/16/2020 09/16/2020 09/16/2020 11:3 5 PM LIBRARY SPECIALIST COVID-19 09/17/2020 09/17/2020 10/07/2020 8:08 PM LIBRARY SPECIALIST documented as of this encounter Care Teams Bumper Machine Operator Relationship Specialty Start Date End Date Roverto Arnold MD [address] [place] [address] PCP - General 12/10/09 documented as of this encounter
--- OUTSIDE RECORDS SUMMARY | 2025-07-15 13:40 | XMS_ITS | Encounter Summary ---
Author Organization [facility] Address [address] [address] Stephen: [place] [address] Care Team Providers Care Wood Stock Blank Handler Name Role Phone Roverto Arnold MD Primary Care Provider [phone] Encounter Details Date Type Department Care Team (Late st Contact Info) Description 09/30/2001 Outpatient Historical Denise Maher Social History Tobacco Use Types Packs/Day Years Used Date Smoking Tobacco: Never Assessed Comments Unknown Sex and Gender Information Value Date Recorded Sex Assigned at Not on file Legal Sex Female 2:56 AM REGIONAL COMPANY TRUCK DRIVER Gender Identity Not on file Sexual Orientation Not on file documented as of this encounter Plan of Treatment Not on file documented as of this encounter Visit Diagnoses Not on filedocumented in this encounter Additional Health Concerns Infection Onset Date Last Indicated Resolved Time R/O COVID-19 09/16/2020 09/16/2020 09/16/2020 11:3 5 PM REGIONAL COMPANY TRUCK DRIVER COVID-19 09/17/2020 09/17/2020 10/07/2020 8:08 PM REGIONAL COMPANY TRUCK DRIVER documented as of this encounter Care Teams Wood Stock Blank Handler Relationship Specialty Start Date End Date Roverto Arnold MD [address] [place] [address] PCP - General 12/10/09 documented as of this encounter
--- OUTSIDE RECORDS SUMMARY | 2025-07-15 13:40 | XMS_ITS | Encounter Summary ---
Author Organization [facility] Address [address] [place] [address] Care Team Providers Care Sleeping Bag Filler Name Role Phone Roverto Arnold MD Primary Care Provider [phone] Reason for Referral * Outpatient Services (Routine) - Closed Specialty Diagnoses / Procedures Referred By Contac t Referred To Contact Radiology Diagnoses Goiter, unspecified Procedures US HEAD NECK TISSUES Marie Askew NP [address] [place] [address] Phone: tel: fax: [facility] Ultrasound [address] [place] [address] Phone: tel: fax: Referral ID Status Reason Start Date Expiration Date V isits Requested Visits Authorized [id number] Closed [facility] TO SCHEDULE ([facility]) 01/23/2013 02/23/2014 1 1 Encounter Details Date Type Department Care Team (Latest Contact Info) Description 01/23/2013 Ancillary Orders [facility] Pre-Registration [place] CALL TO MAKE APPOINTMENT ONLY [address] [place] [address] Marie Askew NP [address] [place] [address] Goiter, unspecified (Primary Dx) Social History Tobacco Use Types Packs/Day Years Used Date Smoking Tobacco: Former Cigarettes 4 30 0 07/06/1958 - 07/06/1988 Smokeless Tobacco: Never Alcohol Use Standard Drinks/Week Comments No 0 (1 standard drink = 0.6 oz pur e alcohol) Comments No Sex and Gender Information Value Date Recorded Sex Assigned at Not on file Legal Sex Female 2:56 AM CAMPUS AMBASSADOR Gender Identity Not on file Sexual Orientation [...] 1. Unremarkable examination. rli - uploaded from epicurioibe - Narrative Procedure Note Mick Ferreira MD [...] from Power Scribe - us Marie Askew LITHOGRAPH PRINTER US ORDERABLES Final Res ult documented in this encounter Visit Diagnoses Diagnosis Goiter, unspecified- Primary Goiter, unspecified documented in this encounter Additional Health Concerns Infection Onset Date Last Indicated Resolved Time R/O COVID-19 09/16/2020 09/16/2020 09/16/2020 11:3 5 PM CAMPUS AMBASSADOR COVID-19 09/17/2020 09/17/2020 10/07/2020 8:08 PM CAMPUS AMBASSADOR documented as of this encounter Care Teams Sleeping Bag Filler Relationship Specialty Start Date End Date Roverto Arnold MD [address] [place] [address] PCP - General 12/10/09 documented as of this encounter
--- OUTSIDE RECORDS SUMMARY | 2025-07-15 13:40 | XMS_ITS | Encounter Summary ---
Author Organization [facility] Address [address] [place] [address] Care Team Providers Care Instructor Apparel Manufacture Name Role Phone Roverto Arnold MD Primary Care Provider [phone] Encounter Details Date Type Department Care Team (Latest Contact Info) Description 10/21/2003 Outpatient Historical [facility] [address] [place] [address] Jose G Talley MD [address] [place] [address] DIABETES UNCOMPL ADULT-UNCONTRLLED (Primary Dx) Social History Tobacco Use Types Packs/Day Years Used Date Smoking Tobacco: Never Assessed Comments Unknown Sex and Gender Information Value Date Recorded Sex Assigned at Not on file Legal Sex Female 2:56 AM LINER REROLL TENDER Gender Identity Not on file Sexual [...] COVID-19 09/16/2020 09/16/2020 09/16/2020 11:3 5 PM LINER REROLL TENDER COVID-19 09/17/2020 09/17/2020 10/07/2020 8:08 PM LINER REROLL TENDER documented as of this encounter Care Teams Instructor Apparel Manufacture Relationship Specialty Start Date End Date Roverto Arnold MD [address] [place] [address] PCP - General 12/10/09 documented as of this encounter
--- OUTSIDE RECORDS SUMMARY | 2025-07-15 13:40 | XMS_ITS | Encounter Summary ---
Author Organization [facility] Address [address] Stephen: [place] [address] Care Team Providers Care Bank Teller Machine Mechanic Name Role Phone Roverto Arnold MD Primary Care Provider [phone] Encounter Details Date Type Department Care Team (Latest Contact Info) Description 01/20/2002 Emergency Yuan Mcclain MD [address] [facility] [place] [id number] Social History Tobacco Use Types Packs/Day Years Used Date Smoking Tobacco: Never Assessed Comments Unknown Sex and Gender Information Value Date Recorded Sex Assigned at Not on file Legal Sex Female 2:56 AM LABORER TAN HOUSE Gender Identity Not on file Sexual Orientation Not on file documented as of this encounter Plan of Treatment Not on file documented as of this encounter Visit Diagnoses Not on filedocumented in this encounter Additional Health Concerns Infection Onset Date Last Indicated Resolved Time R/O COVID-19 09/16/2020 09/16/2020 09/16/2020 11:3 5 PM LABORER TAN HOUSE COVID-19 09/17/2020 09/17/2020 10/07/2020 8:08 PM LABORER TAN HOUSE documented as of this encounter Care Teams Bank Teller Machine Mechanic Relationship Specialty Start Date End Date Roverto Arnold MD [address] [place], [place] [address] PCP - General 2/16/10 documented as of this encounter
--- OUTSIDE RECORDS SUMMARY | 2025-07-15 13:40 | XMS_ITS | Encounter Summary ---
Author Organization [facility] Address [address] [place] [address] Care Team Providers Care Box Covering Machine Operator Name Role Phone Roverto Arnold MD Primary Care Provider [phone] Encounter Details Date Type Department Care Team (Latest Contact Info) Description 11/05/2005 Outpatient Historical [facility] Cardiology- [place] [address] [place] [address] Charli Barahona MD NO ADDRESS ON FILE CHR ISCHEMIC HRT DIS NEC (Primary Dx); MIXED HYPERLIPIDEMIA; Benign hypertension; DIABETES MELLITUS TYPE II-UNCOMPL ([facility] Social History Tobacco Use Types Packs/Day Years Used Date Smoking Tobacco: Never Assessed Comments Unknown Sex and Gender Information Value Date Recorded Sex Assigned at Not on file Legal Sex Female 2:56 AM MIXING TANK OPERATOR Gender Identity Not on file [...] COVID-19 09/16/2020 09/16/2020 09/16/2020 11:3 5 PM MIXING TANK OPERATOR COVID-19 09/17/2020 09/17/2020 10/07/2020 8:08 PM MIXING TANK OPERATOR documented as of this encounter Care Teams Box Covering Machine Operator Relationship Specialty Start Date End Date Roverto Arnold MD [address] [place] [address] PCP - General 12/10/09 documented as of this encounter
--- OUTSIDE RECORDS SUMMARY | 2025-07-15 13:40 | XMS_ITS | Encounter Summary ---
Author Organization [facility] Address [address] [place] [address] Care Team Providers Care Process Control Supervisor Name Role Phone Roverto Arnold MD Primary Care Provider [phone] Encounter Details Date Type Department Care Team (Late st Contact Info) Description 10/30/2003 Outpatient Historical [facility] Social History Tobacco Use Types Packs/Day Years Used Date Smoking Tobacco: Never Assessed Comments Unknown Sex and Gender Information Value Date Recorded Sex Assigned at Not on file Legal Sex Female 2:56 AM FINGERER Gender Identity Not on file Sexual Orientation Not on file documented as of this encounter Plan of Treatment Not on file documented as of this encounter Visit Diagnoses Not on filedocumented in this encounter Additional Health Concerns Infection Onset Date Last Indicated Resolved Time R/O COVID-19 09/16/2020 09/16/2020 09/16/2020 11:3 5 PM FINGERER COVID-19 09/17/2020 09/17/2020 10/07/2020 8:08 PM FINGERER documented as of this encounter Care Teams Process Control Supervisor Relationship Specialty Start Date End Date Roverto Arnold MD [address] [place] [address] PCP - General 12/10/09 documented as of this encounter
--- OUTSIDE RECORDS SUMMARY | 2025-07-15 13:40 | XMS_ITS | Encounter Summary ---
Author Organization [facility] Address [address] [place] [address] Care Team Providers Care Passenger Coach Driver Name Role Phone Roverto Arnold MD Primary Care Provider [phone] Encounter Details Date Type Department Care Team (Latest Contact Info) Description 01/16/2002 Outpatient Historical [facility] [address] [place] [address] Yuan Plata MD NO ADDRESS ON FILE OTHER UNSPEC SLEEP APNEA (Primary Dx) Social History Tobacco Use Types Packs/Day Years Used Date Smoking Tobacco: Never Assessed Comments Unknown Sex and Gender Information Value Date Recorded Sex Assigned at Not on file Legal Sex Female 2:56 AM SWIMMING POOL SALESPERSON Gender Identity Not on file Sexual Orientation Not on file documented as of this encounter Plan of Treatment Not on file documented as of this encounter Visit Diagnoses Diagnosis Unspecified sleep apnea- Primary documented in this encounter Additional Health Concerns Infection Onset Date Last Indicated Resolved Time R/O COVID-19 09/16/2020 09/16/2020 09/16/2020 11:3 5 PM SWIMMING POOL SALESPERSON COVID-19 09/17/2020 09/17/2020 10/07/2020 8:08 PM SWIMMING POOL SALESPERSON documented as of this encounter Care Teams Passenger Coach Driver Relationship Specialty Start Date End Date Roverto Arnold MD [address] [place], [place] [id number] PCP - General 12/10/09 documented as of this encounter
--- OUTSIDE RECORDS SUMMARY | 2025-07-15 13:40 | XMS_ITS | Encounter Summary ---
Author Organization [facility] Address [address] [place] [address] Care Team Providers Care Podiatric Surgeon Name Role Phone Roverto Arnold MD Primary Care Provider [phone] Encounter Details Date Type Department Care Team (Latest Contact Info) Description 09/01/2004 Outpatient Historical [facility] Cardiology- [place] [address] [place] [address] Charli Barahona MD NO ADDRESS ON FILE PRECORDIAL PAIN (Primary Dx); MIXED HYPERLIPIDEMIA; DIABETES MELLITUS TYPE II-UNCOMPL (CMS/HCC); CHR ISCHEMIC HRT DIS NEC Social History Tobacco Use Types Packs/Day Years Used Date Smoking Tobacco: Never Assessed Comments Unknown Sex and Gender Information Value Date Recorded Sex Assigned at Not on file Legal Sex Female 2:56 AM DREDGE LEVER OPERATOR Gender Identity Not on file Sexual [...] COVID-19 09/16/2020 09/16/2020 09/16/2020 11:3 5 PM DREDGE LEVER OPERATOR COVID-19 09/17/2020 09/17/2020 10/07/2020 8:08 PM DREDGE LEVER OPERATOR documented as of this encounter Care Teams Podiatric Surgeon Relationship Specialty Start Date End Date Roverto Arnold MD [address] [place] [address] PCP - General 12/10/09 documented as of this encounter
--- OUTSIDE RECORDS SUMMARY | 2025-07-15 13:41 | XMS_ITS | Encounter Summary ---
Author Organization [facility] Address [address] [place] [address] Care Team Providers Care Inventory Technician Name Role Phone Roverto Arnold MD Primary Care Provider [phone] Encounter Details Date Type Department Care Team (Latest Contact Info) Description 05/18/2002 Outpatient Historical [facility] Gastroenterology[address] [place] [address] Xander Askew MD [address] [facility] [address] [place] [address] ESOPHAGEAL REFLUX (Primary Dx) Social History Tobacco Use Types Packs/Day Years Used Date Smoking Tobacco: Never Assessed Comments Unknown Sex and Gender Information Value Date Recorded Sex Assigned at Not on file Legal Sex Female 2:56 AM CONSTRUCTION FIELD ENGINEER Gender Identity Not on file Sexual Orientation Not on file documented as of this encounter Plan of Treatment Not on file documented as of this encounter Visit Diagnoses Diagnosis Esophageal reflux- Primary documented in this encounter Additional Health Concerns Infection Onset Date Last Indicated Resolved Time R/O COVID-19 09/16/2020 09/16/2020 09/16/2020 11:3 5 PM CONSTRUCTION FIELD ENGINEER COVID-19 09/17/2020 09/17/2020 10/07/2020 8:08 PM CONSTRUCTION FIELD ENGINEER documented as of this encounter Care Teams Inventory Technician Relationship Specialty Start Date End Date Roverto Arnold MD [address] [facility] [place] [address] PCP - General 12/10/09 documented as of this encounter
--- OUTSIDE RECORDS SUMMARY | 2025-07-15 13:41 | XMS_ITS | Encounter Summary ---
Author Organization [facility] Address [address] Stephen: [place] [address] Care Team Providers Care Beauty Sales Advisor Name Role Phone Roverto Arnold MD Primary Care Provider [phone] Encounter Details Date Type Department Care Team (Late st Contact Info) Description 01/27/2002 Outpatient Historical Charli Barahona MD NO ADDRESS ON FILE Social History Tobacco Use Types Packs/Day Years Used Date Smoking Tobacco: Never Assessed Comments Unknown Sex and Gender Information Value Date Recorded Sex Assigned at Not on file Legal Sex Female 2:56 AM OPEN DIE INSPECTOR Gender Identity Not on file Sexual Orientation Not on file documented as of this encounter Plan of Treatment Not on file documented as of this encounter Visit Diagnoses Not on filedocumented in this encounter Additional Health Concerns Infection Onset Date Last Indicated Resolved Time R/O COVID-19 09/16/2020 09/16/2020 09/16/2020 11:3 5 PM OPEN DIE INSPECTOR COVID-19 09/17/2020 09/17/2020 10/07/2020 8:08 PM OPEN DIE INSPECTOR documented as of this encounter Care Teams Beauty Sales Advisor Relationship Specialty Start Date End Date Roverto Arnold MD [address] [facility] [place] [address] PCP - General 12/10/09 documented as of this encounter
--- OUTSIDE RECORDS SUMMARY | 2025-07-15 13:41 | XMS_ITS | Encounter Summary ---
Author Organization [facility] Address [address] [place] [address] Care Team Providers Care Client Care Manager Name Role Phone Roverto Arnold MD Primary Care Provider [phone] Encounter Details Date Type Department Care Team (Latest Contact Info) Description 07/27/[address] [facility] Cardiology- [place] [address] [place] [address] Xin Moe, ANP NO ADDRESS ON FILE CHR ISCHEMIC HRT DIS NEC (Primary Dx); Pure hypercholesterolem Social History Tobacco Use Types Packs/Day Years Used Date Smoking Tobacco: Never Assessed Comments Unknown Sex and Gender Information Value Date Recorded Sex Assigned at Not on file Legal Sex Female 2:56 AM ANCILLARY SPECIALIST Gender Identity Not on file Sexual [...] COVID-19 09/16/2020 09/16/2020 09/16/2020 11:3 5 PM ANCILLARY SPECIALIST COVID-19 09/17/2020 09/17/2020 10/07/2020 8:08 PM ANCILLARY SPECIALIST documented as of this encounter Care Teams Client Care Manager Relationship Specialty Start Date End Date Roverto Arnold MD [address] [place] [address] PCP - General 12/10/09 documented as of this encounter
--- OUTSIDE RECORDS SUMMARY | 2025-07-15 13:41 | XMS_ITS | Encounter Summary ---
Author Organization [facility] Address [address] [place] [address] Care Team Providers Care Neck Band Setter Name Role Phone Roverto Arnold MD Primary Care Provider [phone] Encounter Details Date Type Department Care Team (Latest Contact Info) Description 07/29/1998 Outpatient Historical [facility] Family Medicine [place] [address] [facility] [address] [place] [address] Colten Mayer MD NO ADDRESS ON FILE Other and unspecified hyperlipidemia (Primary Dx) Social History Tobacco Use Types Packs/Day Years Used Date Smoking Tobacco: Never Assessed Comments Unknown Sex and Gender Information Value Date Recorded Sex Assigned at Not on file Legal Sex Female 2:56 AM COMPLIANCE LEAD Gender Identity Not on file Sexual Orientation Not on file documented as of this encounter Plan of Treatment Not on file documented as of this encounter Visit Diagnoses Diagnosis Other and unspecified hyperlipidemia- Primary documented in this encounter Additional Health Concerns Infection Onset Date Last Indicated Resolved Time R/O COVID-19 09/16/2020 09/16/2020 09/16/2020 11:3 5 PM COMPLIANCE LEAD COVID-19 09/17/2020 09/17/2020 10/07/2020 8:08 PM COMPLIANCE LEAD documented as of this encounter Care Teams Neck Band Setter Relationship Specialty Start Date End Date Roverto Arnold MD [address] [place] [address] PCP - General 12/10/09 documented as of this encounter
--- OUTSIDE RECORDS SUMMARY | 2025-07-15 13:41 | XMS_ITS | Encounter Summary ---
Author Organization [facility] Address [address] [place] [address] Care Team Providers Care School Resource Officer Name Role Phone Roverto Arnold MD Primary Care Provider [phone] Encounter Details Date Type Department Care Team (Latest Contact Info) Description 07/20/2003 Outpatient Historical [facility] Cardiology- [place] [address] [place] [address] Claire-Yoana Sow, ALEX [address] [facility] [address] [place] [address] PRECORDIAL PAIN (Primary Dx); CORON ATHEROSCL [place] CORON VESSEL; MIXED HYPERLIPIDEMIA Social History Tobacco Use Types Packs/Day Years Used Date Smoking Tobacco: Never Assessed Comments Unknown Sex and Gender Information Value Date Recorded Sex Assigned at Not on file Legal Sex Female 2:56 AM MANAGER DATABASE Gender Identity Not on file Sexual Orientation Not on file documented as of this encounter Plan of Treatment Not on file documented as of this encounter Visit Diagnoses Diagnosis Precordial pain- Primary Coronary atherosclerosis of [place] coronary artery Mixed hyperlipidemia documented in this encounter Additional Health Concerns Infection Onset Date Last Indicated Resolved Time R/O COVID-19 09/16/2020 09/16/2020 09/16/2020 11:3 5 PM MANAGER DATABASE COVID-19 09/17/2020 09/17/2020 10/07/2020 8:08 PM MANAGER DATABASE documented as of this encounter Care Teams School Resource Officer Relationship Specialty Start Date End Date Roverto Arnold MD [address] [place] [address] PCP - General 12/10/09 documented as of this encounter
--- OUTSIDE RECORDS SUMMARY | 2025-07-15 13:41 | XMS_ITS | Encounter Summary ---
Author Organization [facility] Address [address] [place] [address] Care Team Providers Care Manager Group Name Role Phone Roverto Arnold MD Primary Care Provider [phone] Encounter Details Date Type Department Care Team (Latest Contact Info) Description 02/19/2003 Outpatient Historical [facility] [address] [place] [address] Markie Ramírez MD NO ADDRESS ON FILE PREOP CARDIOVASC EXAM (Primary Dx) Social History Tobacco Use Types Packs/Day Years Used Date Smoking Tobacco: Never Assessed Comments Unknown Sex and Gender Information Value Date Recorded Sex Assigned at Not on file Legal Sex Female 2:56 AM TAPE RECORDER MECHANIC Gender Identity Not on file Sexual Orientation Not on file documented as of this encounter Plan of Treatment Not on file documented as of this encounter Visit Diagnoses Diagnosis Pre-operative cardiovascular examination- Primary documented in this encounter Additional Health Concerns Infection Onset Date Last Indicated Resolved Time R/O COVID-19 09/16/2020 09/16/2020 09/16/2020 11:3 5 PM TAPE RECORDER MECHANIC COVID-19 09/17/2020 09/17/2020 10/07/2020 8:08 PM TAPE RECORDER MECHANIC documented as of this encounter Care Teams Manager Group Relationship Specialty Start Date End Date Roverto Arnold MD [address] [place] [address] PCP - General 12/10/09 documented as of this encounter
--- OUTSIDE RECORDS SUMMARY | 2025-07-15 13:41 | XMS_ITS | Encounter Summary ---
Author Organization [facility] Address [address] [place] [address] Care Team Providers Care Uke Operator Name Role Phone Roverto Arnold MD Primary Care Provider [phone] Encounter Details Date Type Department Care Team (Latest Contact Info) Description 01/30/2003 Outpatient Historical [facility] General and Trauma Surgery-[address] [place] [address] CAROTID ART OCCL-NO INFARCT (Primary Dx) Social History Tobacco Use Types Packs/Day Years Used Date Smoking Tobacco: Never Assessed Comments Unknown Sex and Gender Information Value Date Recorded Sex Assigned at Not on file Legal Sex Female 2:56 AM FOUR ROLL CALENDER OPERATOR Gender Identity Not on file Sexual [...] COVID-19 09/16/2020 09/16/2020 09/16/2020 11:3 5 PM FOUR ROLL CALENDER OPERATOR COVID-19 09/17/2020 09/17/2020 10/07/2020 8:08 PM FOUR ROLL CALENDER OPERATOR documented as of this encounter Care Teams Uke Operator Relationship Specialty Start Date End Date Roverto Arnold MD [address] [place] [address] PCP - General 12/10/09 documented as of this encounter
--- OUTSIDE RECORDS SUMMARY | 2025-07-15 13:41 | XMS_ITS | Encounter Summary ---
Author Organization [facility] Address [address] [place] [address] Care Team Providers Care Rn Neonatal Name Role Phone Roverto Arnold MD Primary Care Provider [phone] Encounter Details Date Type Department Care Team (Latest Contact Info) Description 12/02/1998 Outpatient Historical [facility] Family Medicine Ramonita [facility] [address] [facility] [place] [address] [place] [address] Cotlen Mayer MD NO ADDRESS ON FILE Diaphragmatic hernia (Primary Dx) Social History Tobacco Use Types Packs/Day Years Used Date Smoking Tobacco: Never Assessed Comments Unknown Sex and Gender Information Value Date Recorded Sex Assigned at Not on file Legal Sex Female 2:56 AM USED CAR LOT ATTENDANT Gender Identity Not on file Sexual Orientation Not on file documented as of this encounter Plan of Treatment Not on file documented as of this encounter Visit Diagnoses Diagnosis Diaphragmatic hernia- Primary Diaphragmatic hernia without mention of obstruction or gangrene documented in this encounter Additional Health Concerns Infection Onset Date Last Indicated Resolved Time R/O COVID-19 09/16/2020 09/16/2020 09/16/2020 11:3 5 PM USED CAR LOT ATTENDANT COVID-19 09/17/2020 09/17/2020 10/07/2020 8:08 PM USED CAR LOT ATTENDANT documented as of this encounter Care Teams Rn Neonatal Relationship Specialty Start Date End Date Roverto Arnold MD [address] [place] [address] PCP - General 12/10/09 documented as of this encounter
--- OUTSIDE RECORDS SUMMARY | 2025-07-15 13:41 | XMS_ITS | Clinical Summary ---
Author Organization [facility] Facility Address [address] [place] [address] Care Team Providers Care Instructional Technologist Name Role Phone Marie Askew MD Primary Care Provider [phone] Allergies Active Allergy Reactions Criticality Noted Date [...] TWICE DAILY NEEDED 5 Active nystatin (MYCOSTATIN) 698357 UNIT/ML suspension 5 Active pravastatin (PRAVACHOL) 20 [...] Description 05/30/2025 4:00 PM CDT Office Visit [facility] [address] [place] [address] Jana Melvin NP Stage 3b chronic kidney disease (HCC) (Primary Dx); Type 2 diabetes mellitus with diabetic chronic kidney disease (HCC); 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) 05/21/2025 Documentation Only [facility] [address] [place] [address] Isabella Rojas MA 05/14/2025 Telephone [facility] [address] [place] [address] Aaron Ugarte MD 05/14/2025 Documentation Only [facility] [address] [place] [address] Desirae Weiner from Last 3 Months Immunizations [...] st Contact Info) Description 11/27/2025 2:50 PM TIME STAMP ASSEMBLER Office Visit [facility] [address] [place], [place] [address] Aaron Ugarte MD [address] [facility] [address] [place] [address] Health Maintenance Due Date Last [...] 05/21/2025 Narrative PRINT/EXTERNAL (NON-INTERFACED LABS) - 05/21/[address] [facility] [address] [place] [address] Jana Melvin COPING MACHINE OPERATOR LAB URINE ORDERABLES Jessica story Result [...] 05/21/2025 Narrative PRINT/EXTERNAL (NON-INTERFACED LABS) - 05/21/[address] [facility] [address] [place] [address] Jana Melvin COPING MACHINE OPERATOR LAB BLOOD ORDERABLES Jessica l Result PRINT/EXTERNAL (NON-INTERFACED LABS) * PTH, intact (05/21/2025) Parathyroid Hormone, Intact 41 pg/mL PRINT/HORTICULTURAL FARMWORKER AL (NON-INTERFACE D LABS) Blood Venous blood / Unknown 05/21/2025 Narrative PRINT/EXTERNAL (NON-INTERFACED LABS) - 05/21/[address] [address] Jana Melvin COPING MACHINE OPERATOR LAB BLOOD ORDERABLES Jessica l [...] PRIN T/EXTERNAL (NON-INTERFACE D LABS) eGFR Non-Afr [place] 35 PRINT/EXTERNAL (NON-INTERFACE D LABS) Blood Venous blood / Unknown 05/21/2025 Narrative PRINT/EXTERNAL (NON-INTERFACED LABS) - 05/21/[address] [address] Jana Melvin COPING MACHINE OPERATOR LAB BLOOD ORDERABLES Jessica l Result PRINT/EXTERNAL (NON-INTERFACED LABS) * Hemoglobin A1C (08/30/2023) Hemoglobin A1C 7.0 Blood specimen (specimen) Venous blood / Unknown 08/30/2023 Narrative Isabella Rojas MA - 08/30/2023 [facility] External Provider LAB BLOOD ORDERABLES Final Result from Last 3 Months or Most Recently Relevant to Health Maintenance Insurance Medicaid [place] ([id number]) Dual Complete Choice [facility] [place] Care Teams Instructional Technologist Relationship Specialty Start Date End Date Marie Askew MD [address] [place] [address] PCP - General Nurse Practitioner 03/05/22
--- OUTSIDE RECORDS SUMMARY | 2025-07-15 13:41 | XMS_ITS | Encounter Summary ---
Author Organization [facility] Address [address] [place] [address] Care Team Providers Care Spreader Name Role Phone Roverto Arnold MD Primary Care Provider [phone] Encounter Details Date Type Department Care Team (Late st Contact Info) Description 02/23/2003 Emergency [facility] [address] [place] [address] Roverto Palacios DO NO ADDRESS ON FILE ACUTE LARYNGOTRACH NO OBSTR (Primary Dx) Social History Tobacco Use Types Packs/Day Years Used Date Smoking Tobacco: Never Assessed Comments Unknown Sex and Gender Information Value Date Recorded Sex Assigned at Not on file Legal Sex Female 2:56 AM BACTERIOLOGY PROFESSOR Gender Identity Not on file Sexual Orientation Not on file documented as of this encounter Plan of Treatment Not on file documented as of this encounter Visit Diagnoses Diagnosis Acute laryngotracheitis without mention of obstruction- Primary documented in this encounter Additional Health Concerns Infection Onset Date Last Indicated Resolved Time R/O COVID-19 09/16/2020 09/16/2020 09/16/2020 11:3 5 PM BACTERIOLOGY PROFESSOR COVID-19 09/17/2020 09/17/2020 10/07/2020 8:08 PM BACTERIOLOGY PROFESSOR documented as of this encounter Care Teams Spreader Relationship Specialty Start Date End Date Roverto Arnold MD [address] [place] [address] PCP - General 12/10/09 documented as of this encounter
--- OUTSIDE RECORDS SUMMARY | 2025-07-15 13:41 | XMS_ITS | Encounter Summary ---
Author Organization [facility] Address [address] [place] [address] Care Team Providers Care Travel Ticketing Reviewer Name Role Phone Roverto Arnold MD Primary Care Provider [phone] Encounter Details Date Type Department Care Team (Latest Contact Info) Description 11/30/2006 Outpatient [facility] Breast Center [facility] [address] [place], [place] [address] Bird Davis MD [address] [place] [address] Other Screening Mammogram (Primary Dx) Social History Tobacco Use Types Packs/Day Years Used Date Smoking Tobacco: Never Assessed Comments Unknown Sex and Gender Information Value Date Recorded Sex Assigned at Not on file Legal Sex Female 2:56 AM NOZZLE OPERATOR Gender Identity Not on file Sexual Orientation Not on file documented as of this encounter Plan of Treatment Not on file documented as of this encounter Visit Diagnoses Diagnosis Other screening mammogram- Primary documented in this encounter Additional Health Concerns Infection Onset Date Last Indicated Resolved Time R/O COVID-19 09/16/2020 09/16/2020 09/16/2020 11:3 5 PM NOZZLE OPERATOR COVID-19 09/17/2020 09/17/2020 10/07/2020 8:08 PM NOZZLE OPERATOR documented as of this encounter Care Teams Travel Ticketing Reviewer Relationship Specialty Start Date End Date Roverto Arnold MD [address] [place] [facility] [place] [address] PCP - General 12/10/09 documented as of this encounter
--- OUTSIDE RECORDS SUMMARY | 2025-07-15 13:41 | XMS_ITS | Encounter Summary ---
Author Organization [facility] Address [address] [facility] [address] [place] [address] Phone Care Team Providers Care Busboy Name Role Phone Marie Asekw MD Primary Care Provider [phone] Encounter Details Date Type Department Care Team ([facility] Contact Info) Description 09/01/2019 Orders Only [facility] [address] [place] [address] Jana Melvin NP [address] [facility] [address] [address] Chronic kidney disease stage 3 [...] Upcoming Encounters Date Type Department Care Team ([facility] Contact Info) Description 11/27/2025 2:50 PM CABIN CREW Office Visit [facility] [address] [place] [address] Aaron Ugarte MD [address] [facility] [address] [place] [address] documented as of this encounter Procedures Procedure Name Priority Date/Time Associated Diagnosis Comments URINE ALBUMIN / CREATININE RATIO Routine 08/28/2019 3:49 AM CABIN CREW Chronic kidney disease stage 3 (HCC) CBC Routine 08/28/2019 3:49 AM CABIN CREW Chronic kidney disease stage 3 (HCC) PTH, INTACT Routine 08/28/2019 3:24 AM CABIN CREW Chronic kidney disease stage 3 (HCC) documented in this encounter Results * Urine albumin / creatinine ratio (08/28/2019 3:49 AM CABIN CREW) Creatinine, Urine 197 mg/dL Protein/Creatin ine Ratio 24HR Urine 0.183 mg/mg Protein, Urine 36 Urine specimen (specimen) Urine specimen obtained by clean catch procedure / Unknown 08/28/2019 3:49 AM CABIN CREW Ellie Basurto MA - 09/04/2019 8:49 AM CABIN CREW [employer] [place] [address] [address] [address] Naval Gunfire Spotter: Mick Reynolds DO MPH CLIA: [id number] us Jana Melvin UI DEVELOPER WITH ANGULAR JS LAB URINE ORDERABLES Jessica l Result * CBC (08/28/2019 3:49 AM CABIN CREW) WBC 5.4 K/uL Red Blood Cell Count 4.79 Hemoglobin 14.0 g/dL Hematocrit 41.1 % MCV 85.8 MCH 29.2 MCHC 34.1 RDW 13.0 Platelet Count 248 MPV 11.2 Absolute Neutrophils 3,580 Absolute Lymphocytes 1,123 Absolute Monocytes 524 Absolute Eosinophils 140 Absolute Basophils 32 Neutrophils 66.3 K/uL Lymphocytes 20.8 Monocytes 9.7 Eosinophils 2.6 Basophils 0.6 Blood specimen (specimen) Venous blood / Unknown 08/28/2019 3:49 AM CABIN CREW Ellie Basurto MA - 09/04/2019 8:52 AM CABIN CREW [employer] [place] [address] [address] [facility] [address] Naval Gunfire Spotter: Mick Reynolds DO MPH CLIA: [id number] us Jana Melvin UI DEVELOPER WITH ANGULAR JS LAB BLOOD ORDERABLES Jessica l Result * PTH, intact (08/28/2019 3:24 AM CABIN CREW) Parathyroid Hormone, Intact 35 pg/mL Blood specimen (specimen) Venous blood / Unknown 08/28/2019 3:24 AM CABIN CREW Narrative Ellie Brooks MA - 09/04/2019 8:48 AM CABIN CREW [employer] [place] [address] [facility] [address] Naval Gunfire Spotter: Mick Reynolds DO MPH CLIA: [id number] us Jana Melvin UI DEVELOPER WITH ANGULAR JS LAB BLOOD ORDERABLES Jessica l Result documented in this encounter Visit Diagnoses Diagnosis Chronic kidney disease stage 3 (HCC) documented in this encounter Care Teams Busboy Relationship Specialty Start Date End Date Marie Askew MD [address] [place] [address] PCP - General Nurse Practitioner 03/05/22 documented as of this encounter
--- OUTSIDE RECORDS SUMMARY | 2025-07-15 13:41 | XMS_ITS | Encounter Summary ---
Author Organization [facility] Address [address] [place] [address] Care Team Providers Care Head Filter Tank Tender Helper Name Role Phone Roverto Arnold MD Primary Care Provider [phone] Encounter Details Date Type Department Care Team (Latest Contact Info) Description 01/30/2003 Outpatient Historical [facility] Imaging Services [address] [place] [address] Le Carmichael, DO [address] [place] [address] CAROTID ART OCCL-NO INFARCT (Primary Dx) Social History Tobacco Use Types Packs/Day Years Used Date Smoking Tobacco: Never Assessed Comments Unknown Sex and Gender Information Value Date Recorded Sex Assigned at Not on file Legal Sex Female 2:56 AM PRODUCTION OPERATIONS ENGINEER Gender Identity Not on file Sexual [...] COVID-19 09/16/2020 09/16/2020 09/16/2020 11:3 5 PM PRODUCTION OPERATIONS ENGINEER COVID-19 09/17/2020 09/17/2020 10/07/2020 8:08 PM PRODUCTION OPERATIONS ENGINEER documented as of this encounter Care Teams Head Filter Tank Tender Helper Relationship Specialty Start Date End Date Roverto Arnold MD [address] [place] [address] PCP - General 12/10/09 documented as of this encounter
--- OUTSIDE RECORDS SUMMARY | 2025-07-15 13:41 | XMS_ITS | Encounter Summary ---
Author Organization [facility] Address [address] [place] [address] Care Team Providers Care Music Educator Name Role Phone Roverto Arnold MD Primary Care Provider [phone] Encounter Details Date Type Department Care Team (Latest Contact Info) Description 04/05/2003 Outpatient Historical [facility] General and Trauma Surgery-[address] [place] [address] ABN AUDITORY PERCEPT NOS (Primary Dx) Social History Tobacco Use Types Packs/Day Years Used Date Smoking Tobacco: Never Assessed Comments Unknown Sex and Gender Information Value Date Recorded Sex Assigned at Not on file Legal Sex Female 2:56 AM BREAD DISTRIBUTOR Gender Identity Not on file Sexual Orientation Not on file documented as of this encounter Plan of Treatment Not on file documented as of this encounter Visit Diagnoses Diagnosis Abnormal auditory perception, unspecified- Primary documented in this encounter Additional Health Concerns Infection Onset Date Last Indicated Resolved Time R/O COVID-19 09/16/2020 09/16/2020 09/16/2020 11:3 5 PM BREAD DISTRIBUTOR COVID-19 09/17/2020 09/17/2020 10/07/2020 8:08 PM BREAD DISTRIBUTOR documented as of this encounter Care Teams Music Educator Relationship Specialty Start Date End Date Roverto Arnold MD [address] [place], [place] [address] PCP - General 12/10/09 documented as of this encounter
--- OUTSIDE RECORDS SUMMARY | 2025-07-15 13:41 | XMS_ITS | Encounter Summary ---
Author Organization [facility] Address [address] [address] Stephen: [place] [address] Care Team Providers Care Manager Of Construction Name Role Phone Roverto Arnold MD Primary Care Provider [phone] Encounter Details Date Type Department Care Team (Late st Contact Info) Description 02/01/2002 Outpatient Historical Charli Barahona MD NO ADDRESS ON FILE Social History Tobacco Use Types Packs/Day Years Used Date Smoking Tobacco: Never Assessed Comments Unknown Sex and Gender Information Value Date Recorded Sex Assigned at Not on file Legal Sex Female 2:56 AM TOMBSTONE CARVER Gender Identity Not on file Sexual Orientation Not on file documented as of this encounter Plan of Treatment Not on file documented as of this encounter Visit Diagnoses Not on filedocumented in this encounter Additional Health Concerns Infection Onset Date Last Indicated Resolved Time R/O COVID-19 09/16/2020 09/16/2020 09/16/2020 11:3 5 PM TOMBSTONE CARVER COVID-19 09/17/2020 09/17/2020 10/07/2020 8:08 PM TOMBSTONE CARVER documented as of this encounter Care Teams Manager Of Construction Relationship Specialty Start Date End Date Roverto Arnold MD [address] [facility] [place] [address] PCP - General 12/10/09 documented as of this encounter
--- OUTSIDE RECORDS SUMMARY | 2025-07-15 13:41 | XMS_ITS | Encounter Summary ---
Author Organization [facility] Address [address] [place] [address] Care Team Providers Care Record Searcher Name Role Phone Roverto Arnold MD Primary Care Provider [phone] Encounter Details Date Type Department Care Team (Late st Contact Info) Description 03/08/2003 Outpatient Historical [facility] General and Trauma Surgery-[address] [place] [address] Ursula Arita, SALES SUPERINTENDENT [address] [facility] [address] [place] [address] SURGERY FOLLOWUP, UNSPEC (Primary Dx) Social History Tobacco Use Types Packs/Day Years Used Date Smoking Tobacco: Never Assessed Comments Unknown Sex and Gender Information Value Date Recorded Sex Assigned at Not on file Legal Sex Female 2:56 AM SMALL LOT OPERATOR Gender Identity Not on file Sexual Orientation Not on file documented as of this encounter Plan of Treatment Not on file documented as of this encounter Visit Diagnoses Diagnosis Follow-up examination, following unspecified surgery- Primary documented in this encounter Additional Health Concerns Infection Onset Date Last Indicated Resolved Time R/O COVID-19 09/16/2020 09/16/2020 09/16/2020 11:3 5 PM SMALL LOT OPERATOR COVID-19 09/17/2020 09/17/2020 10/07/2020 8:08 PM SMALL LOT OPERATOR documented as of this encounter Care Teams Record Searcher Relationship Specialty Start Date End Date Roverto Arnold MD [facility] [place] [address] PCP - General 12/10/09 documented as of this encounter
--- OUTSIDE RECORDS SUMMARY | 2025-07-15 13:41 | XMS_ITS | Encounter Summary ---
Author Organization [facility] Address [address] [place] [address] Care Team Providers Care Sign Writer Letterer Or Painter Name Role Phone Roverto Arnold MD Primary Care Provider [phone] Encounter Details Date Type Department Care Team (Latest Contact Info) Description 01/25/2007 Outpatient Historical [facility] [address] [place] [address] Bird Davis MD [address] [place] [address] Disorder of Bone and Cartilage, Unspecified (Primary Dx) Social History Tobacco Use Types Packs/Day Years Used Date Smoking Tobacco: Never Assessed Comments Unknown Sex and Gender Information Value Date Recorded Sex Assigned at Not on file Legal Sex Female 2:56 AM QUILLER TENDER Gender Identity Not on file Sexual [...] Bone Imaging, Whole Body: Radiopharmaceutical: Tc-99m HDP ([id number]) Dose: 21.4 mCiReason for Consultation: Diffuse bone [...] Bone Imaging, Whole Body: Radiopharmaceutical: Tc-99m HDP ([id number]) Dose: 21.4 mCiReason for Consultation: Diffuse bone [...] R/O COVID-19 09/16/2020 09/16/202009/1609/16/2020 11:3 5 PM QUILLER TENDER COVID-19 09/17/2020 09/17/2020 10/07/2020 8:08 PM QUILLER TENDER documented as of this encounter Care Teams Sign Writer Letterer Or Painter Relationship Specialty Start Date End Date Roverto Arnold MD [address] [place] [address] PCP - General 12/10/09 documented as of this encounter
--- OUTSIDE RECORDS SUMMARY | 2025-07-15 13:41 | XMS_ITS | Encounter Summary ---
Author Organization [facility] Address [address] [place] [address] Care Team Providers Care Venue Manager Name Role Phone Roverto Arnold MD Primary Care Provider [phone] Encounter Details Date Type Department Care Team (Latest Contact Info) Description 11/22/1998 Outpatient Historical [facility] Family Medicine Ramonita [facility] [address] [facility] [address] [place] [address] Colten Mayer MD NO ADDRESS ON FILE Chest pain, unspecified (Primary Dx); Other and unspecified angina pectoris Social History Tobacco Use Types Packs/Day Years Used Date Smoking Tobacco: Never Assessed Comments Unknown Sex and Gender Information Value Date Recorded Sex Assigned at Not on file Legal Sex Female 2:56 AM LAMP DECORATOR Gender Identity Not on file Sexual Orientation Not on file documented as of this encounter Plan of Treatment Not on file documented as of this encounter Visit Diagnoses Diagnosis Chest pain, unspecified- Primary Other and unspecified angina pectoris documented in this encounter Additional Health Concerns Infection Onset Date Last Indicated Resolved Time R/O COVID-19 09/16/2020 09/16/2020 09/16/2020 11:3 5 PM LAMP DECORATOR COVID-19 09/17/2020 09/17/2020 10/07/2020 8:08 PM LAMP DECORATOR documented as of this encounter Care Teams Venue Manager Relationship Specialty Start Date End Date Roverto Arnold MD [address] [place] [address] PCP - General 12/10/09 documented as of this encounter
--- OUTSIDE RECORDS SUMMARY | 2025-07-15 13:41 | XMS_ITS | Encounter Summary ---
Author Organization [facility] Address [address] [place] [address] Care Team Providers Care Bruise Trimmer Name Role Phone Roverto Arnold MD Primary Care Provider [phone] Encounter Details Date Type Department Care Team (Latest Contact Info) Description 08/20/2003 Outpatient Historical [facility] [address] [place] [address] Jose G Talley MD [address] [place] [address] DIABETES UNCOMPL ADULT-UNCONTRLLED (Primary Dx) Social History Tobacco Use Types Packs/Day Years Used Date Smoking Tobacco: Never Assessed Comments Unknown Sex and Gender Information Value Date Recorded Sex Assigned at Not on file Legal Sex Female 2:56 AM HVAC SERVICE TECH Gender Identity Not on file Sexual [...] COVID-19 09/16/2020 09/16/2020 09/16/2020 11:3 5 PM HVAC SERVICE TECH COVID-19 09/17/2020 09/17/2020 10/07/2020 8:08 PM HVAC SERVICE TECH documented as of this encounter Care Teams Bruise Trimmer Relationship Specialty Start Date End Date Roverto Arnold MD [address] [place] [address] PCP - General 12/10/09 documented as of this encounter
--- OUTSIDE RECORDS SUMMARY | 2025-07-15 13:41 | XMS_ITS | Encounter Summary ---
Author Organization [facility] Address [address] [place] [address] Care Team Providers Care Electric Brain Wave Equipment Mechanic Name Role Phone Roverto Arnold MD Primary Care Provider [phone] Encounter Details Date Type Department Care Team (Late st Contact Info) Description 05/25/2016 Ancillary Orders [facility] [place] [address] [place] [address] Bird Davis MD [address] [place] [address] Visit for screening mammogram (Primary [...] file Legal Sex Female 2:56 AM CLINICAL EDUCATION COORDINATOR Gender Identity Not on file Sexual Orientation Not on file Occupation Industry Job Start Date Job End Date Not on file Not on file Not on file Not on file documented as of this encounter Plan of Treatment Not on file documented as of this encounter Results * MAMMO PRIOR STUDY (11/30/2006 6:30 AM CLINICAL EDUCATION COORDINATOR) Narrative 05/25/2016 6:27 AM CDT This exam [...] 09/16/2020 09/16/2020 09/16/2020 11:3 5 PM CLINICAL EDUCATION COORDINATOR COVID-19 09/17/2020 09/17/2020 10/07/2020 8:08 PM CLINICAL EDUCATION COORDINATOR documented as of this encounter Care Teams Electric Brain Wave Equipment Mechanic Relationship Specialty Start Date End Date Roverto Arnold MD [address] [place] [address] PCP - General 12/10/09 documented as of this encounter
--- OUTSIDE RECORDS SUMMARY | 2025-07-15 13:41 | XMS_ITS | Encounter Summary ---
Author Organization [facility] Address [address] [place] [address] Care Team Providers Care Personal Protection Specialist Name Role Phone Roverto Arnold MD Primary Care Provider [phone] Encounter Details Date Type Department Care Team (Latest Contact Info) Description 12/28/2006 Outpatient Historical [facility] Cardiology- [place] [address] [place] [address] Claire-Yoana Sow, ALEX [address] [address] Palpitations (Primary Dx); Other Dyspnea and Respiratory Abnormality; Unspecified Chronic Ischemic Heart Disease; Unspecified Peripheral Vascular Disease Social History Tobacco Use Types Packs/Day Years Used Date Smoking Tobacco: Never Assessed Comments Unknown Sex and Gender Information Value Date Recorded Sex Assigned at Not on file Legal Sex Female 2:56 AM PER DIEM REGISTERED NURSE Gender Identity Not on file Sexual [...] COVID-19 09/16/2020 09/16/2020 09/16/2020 11:3 5 PM PER DIEM REGISTERED NURSE COVID-19 09/17/2020 09/17/2020 10/07/2020 8:08 PM PER DIEM REGISTERED NURSE documented as of this encounter Care Teams Personal Protection Specialist Relationship Specialty Start Date End Date Roverto Arnold MD [address] [place] [address] PCP - General 12/10/09 documented as of this encounter
--- OUTSIDE RECORDS SUMMARY | 2025-07-15 13:41 | XMS_ITS | Encounter Summary ---
Author Organization [facility] Address [address] [place] [address] Phone Care Team Providers Care Hand Bender Name Role Phone Marie Askew MD Primary Care Provider [phone] Reason for Visit * Reason Comments Med Refill Encounter Details Date Type Department Care Team ([facility] Contact Info) Description 10/06/2021 Refill [facility] [address] [place] [address] Lauren Gross NP [address] [place] [address] Stage 3b chronic kidney disease [...] Upcoming Encounters Date Type Department Care Team ([facility] Contact Info) Description 11/27/2025 2:50 PM FAMILY SERVICES MANAGER Office Visit [facility] [address] [place], [place] [id number] Aaron Ugarte MD [address] [place] [address] documented as of this encounter Visit Diagnoses Diagnosis Stage 3b chronic kidney disease (HCC) documented in this encounter Care Teams Hand Bender Relationship Specialty Start Date End Date Marie Askew MD [address] [address] PCP - General Nurse Practitioner 03/05/22 documented as of this encounter
--- OUTSIDE RECORDS SUMMARY | 2025-07-15 13:41 | XMS_ITS | Encounter Summary ---
Author Organization [facility] Address [address] [place] [address] Care Team Providers Care Field Representative/Health Education Name Role Phone Roverto Arnold MD Primary Care Provider [phone] Encounter Details Date Type Department Care Team (Latest Contact Info) Description 11/30/2006 Outpatient Historical [facility] Breast [place] [address] [facility] [address] [place] [address] Other Screening Mammogram (Primary Dx) Social History Tobacco Use Types Packs/Day Years Used Date Smoking Tobacco: Never Assessed Comments Unknown Sex and Gender Information Value Date Recorded Sex Assigned at Not on file Legal Sex Female 2:56 AM LEAD TELLER Gender Identity Not on file Sexual Orientation Not on file documented as of this encounter Plan of Treatment Not on file documented as of this encounter Visit Diagnoses Diagnosis Other screening mammogram- Primary documented in this encounter Additional Health Concerns Infection Onset Date Last Indicated Resolved Time R/O COVID-19 09/16/2020 09/16/2020 09/16/2020 11:3 5 PM LEAD TELLER COVID-19 09/17/2020 09/17/2020 10/07/2020 8:08 PM LEAD TELLER documented as of this encounter Care Teams Field Representative/Health Education Relationship Specialty Start Date End Date Roverto Arnold MD [facility] [address] [place], [place] [address] PCP - General 12/10/09 documented as of this encounter
--- OUTSIDE RECORDS SUMMARY | 2025-07-15 13:41 | XMS_ITS | Encounter Summary ---
Author Organization [facility] Address [address] [place] [address] Care Team Providers Care Structural Mill Supervisor Name Role Phone Roverto Arnold MD Primary Care Provider Encounter Details Date Type Department Care Team (Latest Contact Info) Description 07/23/1998 Outpatient Historical [facility] Family Medicine [facility] [address] [facility] [address] [place] [address] Colten Mayer MD NO ADDRESS ON FILE Other and unspecified hyperlipidemia (Primary Dx) Social History Tobacco Use Types Packs/Day Years Used Date Smoking Tobacco: Never Assessed Comments Unknown Sex and Gender Information Value Date Recorded Sex Assigned at Not on file Legal Sex Female 2:56 AM CRUSHER FEEDER Gender Identity Not on file Sexual Orientation Not on file documented as of this encounter Plan of Treatment Not on file documented as of this encounter Visit Diagnoses Diagnosis Other and unspecified hyperlipidemia- Primary documented in this encounter Additional Health Concerns Infection Onset Date Last Indicated Resolved Time R/O COVID-19 09/16/2020 09/16/2020 09/16/2020 11:3 5 PM CRUSHER FEEDER COVID-19 09/17/2020 09/17/2020 10/07/2020 8:08 PM CRUSHER FEEDER documented as of this encounter Care Teams Structural Mill Supervisor Relationship Specialty Start Date End Date Roverto Arnold MD [address] [place] [address] PCP - General 12/10/09 documented as of this encounter
--- OUTSIDE RECORDS SUMMARY | 2025-07-15 13:41 | XMS_ITS | Encounter Summary ---
Author Organization [facility] Address [address] [place] [address] Care Team Providers Care Associate Theatre Professor Name Role Phone Roverto Arnold MD Primary Care Provider Encounter Details Date Type Department Care Team (Latest Contact Info) Description 06/21/2003 [facility] [address] [place] [place] [address] Le Carmichael, DO [address] [place] [address] SCREENING MAMM-MAILG NEOPL-OTHER (Primary Dx) Social History Tobacco Use Types Packs/Day Years Used Date Smoking Tobacco: Never Assessed Comments Unknown Sex and Gender Information Value Date Recorded Sex Assigned at Not on file Legal Sex Female 2:56 AM SENIOR MORTGAGE LOAN PROCESSOR Gender Identity Not on file Sexual Orientation Not on file documented as of this encounter Plan of Treatment Not on file documented as of this encounter Visit Diagnoses Diagnosis Other screening mammogram- Primary documented in this encounter Additional Health Concerns Infection Onset Date Last Indicated Resolved Time R/O COVID-19 09/16/2020 09/16/2020 09/16/2020 11:3 5 PM SENIOR MORTGAGE LOAN PROCESSOR COVID-19 09/17/2020 09/17/2020 10/07/2020 8:08 PM SENIOR MORTGAGE LOAN PROCESSOR documented as of this encounter Care Teams Associate Theatre Professor Relationship Specialty Start Date End Date Roverto Arnold MD [address] [place] [address] PCP - General 12/10/09 documented as of this encounter
--- OUTSIDE RECORDS SUMMARY | 2025-07-15 13:41 | XMS_ITS | Encounter Summary ---
Author Organization [facility] Address [address] [place] [address] Care Team Providers Care Drum Sprayer Name Role Phone Roverto Arnold MD Primary Care Provider [phone] Encounter Details Date Type Department Care Team (Late st Contact Info) Description 09/01/2011 Ancillary Orders [facility] Orthopedics- [address] [place] [address] Darnell Lerma MD NO ADDRESS [...] on file Legal Sex Female 2:56 AM CATERING CONVENTION SERVICES MANAGER Gender Identity Not on file Sexual Orientation Not on file documented as of this encounter Plan of Treatment Not on file documented as of this encounter Results * XR SHOULDER 2+ VW LEFT (09/01/2011 1:25 PM CATERING CONVENTION SERVICES MANAGER) Anatomical Region Laterality Modality Upper Extremity Computed Radiogr aphy Narrative 09/05/2011 7:05 AM CATERING CONVENTION SERVICES MANAGER Bilateral shoulder internal, external, and Y views [...] COVID-19 09/16/2020 09/16/2020 09/16/2020 11:3 5 PM CATERING CONVENTION SERVICES MANAGER COVID-19 09/17/2020 09/17/2020 10/07/2020 8:08 PM CATERING CONVENTION SERVICES MANAGER documented as of this encounter Care Teams Drum Sprayer Relationship Specialty Start Date End Date Roverto Arnold MD [address] [place] [address] PCP - General 12/10/09 documented as of this encounter
--- OUTSIDE RECORDS SUMMARY | 2025-07-15 13:41 | XMS_ITS | Encounter Summary ---
Author Organization [facility] Address [address] [place] [address] Care Team Providers Care Wood Panel Inspector Name Role Phone Roverto Arnold MD Primary Care Provider [phone] Encounter Details Date Type Department Care Team (Latest Contact Info) Description 01/29/2003 Outpatient Historical [facility] Cardiology- [place] [address] [place] [address] Charli Barahona MD NO ADDRESS ON FILE ANGINA PECTORIS NEC/NOS (Primary Dx); CHR ISCHEMIC HRT DIS NEC; MIXED HYPERLIPIDEMIA Social History Tobacco Use Types Packs/Day Years Used Date Smoking Tobacco: Never Assessed Comments Unknown Sex and Gender Information Value Date Recorded Sex Assigned at Not on file Legal Sex Female 2:56 AM POOL LIFEGUARD Gender Identity Not on file Sexual Orientation [...] COVID-19 09/16/2020 09/16/2020 09/16/2020 11:3 5 PM POOL LIFEGUARD COVID-19 09/17/2020 09/17/2020 10/07/2020 8:08 PM POOL LIFEGUARD documented as of this encounter Care Teams Wood Panel Inspector Relationship Specialty Start Date End Date Roverto Arnold MD [address] [place] [address] PCP - General 12/10/09 documented as of this encounter
--- OUTSIDE RECORDS SUMMARY | 2025-07-15 13:41 | XMS_ITS | Encounter Summary ---
Author Organization [facility] Address [address] [place] [address] Care Team Providers Care Arranging Funeral Director Name Role Phone Roverto Arnold MD Primary Care Provider [phone] Encounter Details Date Type Department Care Team (Latest Contact Info) Description 08/06/2003 Outpatient Historical [facility] [address] [place] [address] Le Carmichael, DO [address] [place] [address] CARDIOVAS SYS SYMP NEC (Primary Dx) Social History Tobacco Use Types Packs/Day Years Used Date Smoking Tobacco: Never Assessed Comments Unknown Sex and Gender Information Value Date Recorded Sex Assigned at Not on file Legal Sex Female 2:56 AM TAG MAKER Gender Identity Not on file Sexual Orientation Not on file documented as of this encounter Plan of Treatment Not on file documented as of this encounter Visit Diagnoses Diagnosis Other symptoms involving cardiovascular system- Primary documented in this encounter Additional Health Concerns Infection Onset Date Last Indicated Resolved Time R/O COVID-19 09/16/2020 09/16/2020 09/16/2020 11:3 5 PM TAG MAKER COVID-19 09/17/2020 09/17/2020 10/07/2020 8:08 PM TAG MAKER documented as of this encounter Care Teams Arranging Funeral Director Relationship Specialty Start Date End Date Roverto Arnold MD [address] [facility] [place] [address] PCP - General 12/10/09 documented as of this encounter
--- OUTSIDE RECORDS SUMMARY | 2025-07-15 13:41 | XMS_ITS | Encounter Summary ---
Author Organization [facility] Address [address] [place] [address] Care Team Providers Care Security Lead Name Role Phone Roverto Arnold MD Primary Care Provider [phone] Encounter Details Date Type Department Care Team [...] on file Legal Sex Female 2:56 AM SANDAL PARTS ASSEMBLER Gender Identity Not on file Sexual [...] COVID-19 09/16/2020 09/16/2020 09/16/2020 11:3 5 PM SANDAL PARTS ASSEMBLER COVID-19 09/17/2020 09/17/2020 10/07/2020 8:08 PM SANDAL PARTS ASSEMBLER documented as of this encounter Care Teams Security Lead Relationship Specialty Start Date End Date Roverto Arnold MD [address] [place] [address] PCP - General 12/10/09 documented as of this encounter
--- OUTSIDE RECORDS SUMMARY | 2025-07-15 13:41 | XMS_ITS | Encounter Summary ---
Author Organization [facility] Address [address] [place] [address] Care Team Providers Care Family Resource Management Specialist Name Role Phone Roverto Arnold MD Primary Care Provider [phone] Encounter Details Date Type Department Care Team (Latest Contact Info) Description 01/01/2009 Ancillary Orders [facility] CT Scan [address] [place] [address] Patty Woods, HANDBAG PARTS CUTTER [address] [place] [address] Neck Pain; Low Back Pain Radiating to Both Legs; Dizziness Social History Tobacco Use Types Packs/Day Years Used Date Smoking Tobacco: Never Assessed Comments Unknown Sex and Gender Information Value Date Recorded Sex Assigned at Not on file Legal Sex Female 2:56 AM RESIDENT SERVICES MANAGER Gender Identity Not on file [...] multilevel degenerative changes. sdm - uploaded from [facility] - Narrative 01/03/2009 3:40 PM CDT The [...] multilevel degenerative changes. sdm - uploaded from [facility] - Delaney Liu MD CT ORDERABLES Final [...] R/O COVID-09/16/2020 09/16/2020 09/16/2020 11:3 5 PM RESIDENT SERVICES MANAGER COVID-19 09/17/2020 09/17/2020 10/07/2020 8:08 PM RESIDENT SERVICES MANAGER documented as of this encounter Care Teams Family Resource Management Specialist Relationship Specialty Start Date End Date Roverto Arnold MD [address] [place] [address] PCP - General 12/10/09 documented as of this encounter
--- OUTSIDE RECORDS SUMMARY | 2025-07-15 13:41 | XMS_ITS | Encounter Summary ---
Author Organization [facility] Address [address] Stephen: [place] [address] Care Team Providers Care Curriculum Advisory Teacher Name Role Phone Roverto Arnold MD Primary Care Provider [phone] Encounter Details Date Type Department Care Team (Late st Contact Info) Description 04/26/2002 Inpatient Historical Scotty Kapadia MD [address] [place] [address] Social History Tobacco Use Types Packs/Day Years Used Date Smoking Tobacco: Never Assessed Comments Unknown Sex and Gender Information Value Date Recorded Sex Assigned at Not on file Legal Sex Female 2:56 AM ARCHITECTURAL JOB CAPTAIN Gender Identity Not on file Sexual Orientation Not on file documented as of this encounter Plan of Treatment Not on file documented as of this encounter Visit Diagnoses Not on filedocumented in this encounter Additional Health Concerns Infection Onset Date Last Indicated Resolved Time R/O COVID-19 09/16/2020 09/16/2020 09/16/2020 11:3 5 PM ARCHITECTURAL JOB CAPTAIN COVID-19 09/17/2020 09/17/2020 10/07/2020 8:08 PM ARCHITECTURAL JOB CAPTAIN documented as of this encounter Care Teams Curriculum Advisory Teacher Relationship Specialty Start Date End Date Roverto Arnold MD [address] [place], [place] [address] PCP - General 12/10/09 documented as of this encounter
--- OUTSIDE RECORDS SUMMARY | 2025-07-15 13:41 | XMS_ITS | Encounter Summary ---
Author Organization [facility] Address [address] [place] [address] Phone Care Team Providers Care Title Examiner Name Role Phone Marie Askew MD Primary Care Provider [phone] Encounter Details Date Type Department Care Team ([facility] Contact Info) Description 02/11/2019 Orders Only [facility] [address] [facility] [address] [place] [address] Aaron Ugarte MD [address] [place] [address] Chronic kidney disease, not otherwise [...] Upcoming Encounters Date Type Department Care Team ([facility] Contact Info) Description 11/27/2025 2:50 PM RN ER Office Visit [facility] [address] [place], [place] [address] Aaron Ugarte MD [address] [place] [address] documented as of this encounter [...] [facility] - 03/01/2019 7:57 AM CDT RN RESEARCH labs [facility] [place] [address] [facility] [address] Mail Processor: Mick Reynolds DO MPH CLIA: [id number] us Jana Melvin SOCIAL SERVICES TECHNICIAN LAB BLOOD ORDERABLES Jessica story Result [facility] documented in this encounter Visit Diagnoses Diagnosis Chronic kidney disease, not otherwise specified documented in this encounter Care Teams Title Examiner Relationship Specialty Start Date End Date Marie Askew MD [address] [place] [address] [place] [address] PCP - General Nurse Practitioner 03/05/22 documented as of this encounter
--- NOTE | 2025-07-15 13:44 | ED_ITS ---
HPI - Skin/Abscess/Foreign Bdy 2 General: Chief complaint: Skin/Abscess/Foreign Body Stated complaint: rash on the lower left side Time Seen by Provider: 07/15/25 13:37 Source: patient Mode of arrival: ambulatory Limitations: no limitations History of Present Illness: Patient is an 79-year-old female here with daughter for concern of a rash that has developed to the left side of her abdomen. She was seen here a few days ago for left-sided abdominal pain. Daughter states they began noticing rash yesterday. Patient states the rash is incredibly painful. She has not had a shingles vaccine. complaint: rash Onset (ago): day(s) Tetanus up to date: yes Location: generalized (L abdomen) Severity: moderate Quality: burning and sharp Pain Consistency: constant Relieving factors: none Exacerbating factors: none Context: none Associated symptoms: Reports no associated symptoms; Deny chills, fever(s), nausea or vomiting Treatments prior to arrival: none Related Data Home Medications ?Medication ?Instructions ?Recorded ?Confirmed diltiazem HCl 120 mg 120 mg PO DAILY 09/06/20 capsule,extended release 24 hr fenofibrate nanocrystallized 145 145 mg PO DAILY 09/0606/23/25 mg tablet isosorbide mononitrate 30 mg See Rx Instructions .Rout e .COMPLEX 09/06/20 06/23/25 tablet,extended release 24 hr levothyroxine 50 mcg tablet 50 mcg PO DAILY 09/06/20 0 06/23/25 pantoprazole 40 mg tablet,delayed 40 mg PO DAILY 09/0606/23/25 release ranolazine 500 mg tablet,extended 500 mg PO BID 06/23/25 release,12 hr dapagliflozin propanediol 10 mg 10 mg PO DAILY 4 06/23/25 tablet (Farxiga) temazepam 30 mg capsule 30 mg PO BEDTIME 11/18/23 metoprolol tartrate 25 mg tablet 25 mg PO BID 02/04/24 06/23/25 lorazepam 1 mg tablet 1 mg PO BID 06/23/25 5 Previous Rx's ?Medication ?Instructions ?Recorded aspirin 81 mg tablet,delayed 81 mg PO DAILY 30 days #3 0 tabs 06/25/25 release atorvastatin 40 mg tablet 40 mg PO BEDTIME 30 days #30 tabs 06/25/25 clopidogrel 75 mg tablet 75 mg PO DAILY 30 days #30 t abs 06/25/25 nitroglycerin 0.4 mg sublingual 0.4 mg sublingual Q5M PRN Chest 06/25/25 tablet Pain 30 days #30 tabs hydrocodone 5 mg-acetaminophen 325 1 tab PO .q 4-6 PRN pain #20 tabs 07/15/25 mg tablet prednisone 10 mg tablet 10 mg PO DAILY 7 days #19 ta bs 07/15/25 valacyclovir 1 gram tablet 1,000 mg PO Q8H 7 days #21 tabs 07/15/25 (Valtrex) Allergies Allergy/AdvReac Type Severity Reaction Status Date / Time alprazolam (From Xanax) Allergy ADR-Halluci Verified 07/15/25 13:39 nating codeine Allergy ADR-Vomitin Verified 07/15/25 13:39 g epinephrine (From Primatene Allergy ALGY-Difficulty Verified 07/15/25 13:39 Mist) Breathing mirtazapine Allergy ADR-Halluci Verified 07/15/25 13:39 nating morphine Allergy ALGY-Redness Verified 07/15/25 13:39 of Skin Review of Systems 2 Const: Denies: fever(s), chills, body aches, fatigue or malaise Card: Denies: chest pain Resp: Denies: dyspnea GI: Reports: abdominal pain (at site of rash); Denies: nausea, vomiting, change in bowel habits, hematochezia or melena : Denies: flank pain, dysuria or hematuria Musc: Denies: neck pain, back pain, extremity pain or joint pain Skin/Breast: Reports: rash Neuro: Denies: headache(s), numbness in extremities, weakness in extremities, sensory changes or dizziness PFSH ED 2 PFSH: Medical History Recurrent UTI Chronic kidney disease (CKD) -on gentle IVF due to anticipated coronary angiogram -baseline Cr appears to be around 1.2-1.3 Dyslipidemia associated with type 2 diabetes mellitus -continue statin Benign essential hypertension with target blood pressure below 140/90 -amlodipine added for more optimal BP control 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 x 4, stenting x 3 Peripheral neuropathy [place] spotted fever Hypothyroidism Sleep apnea GERD (gastroesophageal reflux disease) Coronary artery disease Diabetes Kidney disease, chronic, stage II (GFR 60-89 ml/min) Cholecystitis Surgical History History of right-sided carotid endarterectomy Hx of cholecystectomy S/P CABG (coronary artery bypass graft) Patient reports 3 times Family History Father , AT AGE 74 Natural with unknown cause Mother , AT AGE 81 Heart attack Other Family history non-contributory Social History Smoking and tobacco/nicotine status: former use of tobacco/nicotine Alcohol intake: never Substance/Drug Use: never Marital status: Current occupational status: retired Physical Exam 2 Const: COMMON NORMALS: no acute distress, average body habitus, patient oriented x3, no limitations, healthy appearing, alert and well nourished G ENERAL APPEARANCE: cooperative Resp: COMMON NORMALS: normal respiratory effort and clear to auscultation bilaterally AUSCULTATION: clear to auscultation bilaterally Cardio: COMMON NORMALS: regular rate and regular rhythm RATE: regular rate RHYTHM: regular rhythm GI: COMMON NORMALS: Soft to palpation, non-tender and No hepatosplenomegaly present INSPECTION: Yes other (rash L side of abdomen starting at back) P ALPATION: Yes Soft to palpation, Yes Tenderness to palpation present (GI) (at site of rash) and Yes No hepatosplenomegaly present GI image (female): 1. dermatomal distribution of clusters of erythematous lesions consistent with shingles : COMMON NORMALS: Yes no CVA tenderness BLADDER/KIDNEY EXAM: Yes no CVA tenderness Back/Pelvis: COMMON NORMALS: no CVA tenderness, no thoracic nor lumbar tenderness, thoraco-lumbar ROM normal and straight leg raise negative bilaterally BACK IMAGE (FEMALE): 1. dermatomal distribution of clusters of erythematous lesions consistent with shingles Extremity: GENERAL: Yes normal exam except as noted Neuro: COMMON NORMALS: patient oriented x3, moves all extremities, no focal motor deficits and no sensory deficits noted SENSORIUM/ORIENTATION: Yes alert Skin: RASHES: rashes noted Course 2 Vital Signs: Vital signs: Vital Signs Temperature 97.4 F L 07/15/25 13:38 Pulse Rate 93 07/15/25 13:38 Respiratory Rate 16 07/15/25 13:38 Blood Pressure 122/78 07/15/25 13:38 Pulse Oximetry 93 07/15/25 13:38 MDM - Skin/Abscess/Foreign Bdy Medicial Decision Making Patient with classic herpes zoster rash. She will be treated with antivirals, steroids, pain medications. Recommend follow-up with primary care this week for re-evaluation. Differential Diagnosis Likely urticaria, herpes zoster, cellulitis, insect bites, impetigo and contact dermatitis Medical Records I reviewed the patient's medical records. No radiology studies performed this visit Discharge Plan Discharge Patient Disposition: Home Clinical Impression: Shingles Condition: Stable Prescriptions: New valacyclovir [Valtrex] 1 gram tablet 1,000 mg PO Q8H 7 Days Qty: 21 0RF hydrocodone-acetaminophen 5-325 mg tablet 1 tab PO .q 4-6 PRN (Reason: pain) Qty: 20 0RF prednisone 10 mg tablet 10 mg PO DAILY 7 Days Qty: 19 0RF Rx Instructions: 4 tabs on days 1-2, 3 tabs on days 3-4, 2 tabs on days 5-6, 1 tab on day 7 No Action pantoprazole 40 mg Tablet,Delayed Release (Dr/Ec) 40 mg PO DAILY isosorbide mononitrate 30 mg tablet extended release 24 hr See Rx Instructions .ROUTE .COMPLEX Rx Instructions: 60 mg orally in the morning/ 30 mg orally in the evening levothyroxine 50 mcg tablet 50 mcg PO DAILY diltiazem HCl 120 mg capsule,extended release 24hr 120 mg PO DAILY ranolazine 500 mg tablet extended release 12 hr 500 mg PO BID fenofibrate nanocrystallized 145 mg tablet 145 mg PO DAILY metoprolol tartrate 25 mg tablet 25 mg PO BID lorazepam 1 mg tablet 1 mg PO BID aspirin 81 mg Tablet,Delayed Release (Dr/Ec) 81 mg PO DAILY 30 Days Qty: 30 0RF nitroglycerin 0.4 mg Tablet, Sublingual 0.4 mg sublingual Q5M PRN (Reason: Chest Pain) 30 Days Qty: 30 0RF atorvastatin 40 mg Tablet 40 mg PO BEDTIME 30 Days Qty: 30 0RF clopidogrel 75 mg tablet 75 mg PO DAILY 30 Days Qty: 30 0RF temazepam 30 mg capsule 30 mg PO BEDTIME dapagliflozin propanediol [Farxiga] 10 mg tablet 10 mg PO DAILY Discharge Orders: Discharge ED (Routine); Ordered 07/15/25 Ordered By: Dorothy Barrett Referrals: Roverto Arnold MD [Primary Care Provider, [facility]] Patient Instructions: Shingles (ED), Opioid Safety, Pain Management, Patient Portal & [place] Instructions Activity Restrictions/Additional Instructions: As we discussed, please fill your medications today and start them immediately. I would like her to follow-up with primary care later this week for reevaluation. Print Language: Bangladeshi Coding Level of Care Code ED [employer] Balancing Technician for Bev Rivera
== END 2025-07-15 14:14 | disposition home or self-care (01) ==
PROVIDERS: Emergency Provider Physician Assistant; PCP Family Medicine
DX: B02.9 Zoster without complications (principal)
CPT/HCPCS: 99283

== ENCOUNTER → 2025-07-23 12:49 | Outpatient (BNVA) | payer OTHER, MEDICAID, SELFPAY | PROVIDERS: PCP Family Medicine; Visit Provider Internal Medicine Cardiovascular Disease | DX: I25.10 Atherosclerotic heart disease of native coronary artery without angina pectoris (principal); I10 Essential (primary) hypertension; E78.5 Hyperlipidemia, unspecified; E11.9 Type 2 diabetes mellitus without complications; Z95.1 Presence of aortocoronary bypass graft; Z95.5 Presence of coronary angioplasty implant and graft; Z87.891 Personal history of nicotine dependence; I25.2 Old myocardial infarction | CPT/HCPCS: 99214 ==

== ENCOUNTER → 2025-08-01 10:54 | Outpatient (BNVA) | payer OTHER, MEDICAID, SELFPAY | PROVIDERS: PCP Family Medicine; Visit Provider Internal Medicine | DX: R91.8 Other nonspecific abnormal finding of lung field (principal); J45.909 Unspecified asthma, uncomplicated; G31.84 Mild cognitive impairment of uncertain or unknown etiology; I25.10 Atherosclerotic heart disease of native coronary artery without angina pectoris; Z95.5 Presence of coronary angioplasty implant and graft; Z99.81 Dependence on supplemental oxygen; Z87.891 Personal history of nicotine dependence; J96.10 Chronic respiratory failure, unspecified whether with hypoxia or hypercapnia; J44.9 Chronic obstructive pulmonary disease, unspecified | CPT/HCPCS: 99204; Q3014 ==

== ENCOUNTER 2025-08-10 09:13 | Outpatient (CLI) | payer OTHER, MEDICAID, SELFPAY ==
--- NOTE | 2025-08-10 09:45 | CT_ITS ---
WS: [id number] CT CHEST HIGH RESOLUTION, NONCONTRAST. HISTORY: Interstitial lung disease. Technique: High-resolution chest CT is performed in inspiration, expiration, supine and prone positioning. All CT scans at [facility] use at least one of these dose optimization techniques: automated exposure control; mA and/or kV adjustment per patient size (includes targeted exams where dose is matched to clinical indication); or iterative reconstruction. DLP: 605.14 mGy COMPARISON: None. Findings: Moderate pulmonary hyperexpansion. 6 mm groundglass attenuation nodule LEFT apex. RIGHT lower lobe thin-walled cyst measures 2.0 x 2.1 cm. There are a few Tiny calcified granulomata. There is mild peripheral interstitial thickening seen greatest on the high-res imaging. There is no honeycombing or bronchiectasis. No pulmonary mass or pneumonia. During expiration there is mild volume loss of both lungs. There is no focal mosaic attenuation or air trapping identified. No areas of atelectasis. Advanced atherosclerotic plaque is calcified within a nondilated thoracic aorta. Dense calcified plaque in the origin of the great vessels. Stenosis likely. Extensive [place] coronary artery calcifications. Patient is status post CABG. Pulmonary artery is normal size. No mediastinal or hilar adenopathy. No significant hiatal hernia. Prior cholecystectomy. Negative RIGHT adrenal gland. The entire LEFT adrenal gland is not included. CT/CT chest w/o HI-Res(Pulm Only) Impression: 1. No honeycombing or bronchiectasis. 2. Hyperexpansion from emphysema. 3. RIGHT lower lobe true pulmonary cyst. 4. LEFT upper lobe 6 mm groundglass nodule. 5. No adenopathy. 6. Status post CABG. 7. Atherosclerotic calcifications in the aortic arch with extension into the g reat vessels. 8. Prior cholecystectomy.
== END 2025-08-10 09:14 | disposition home or self-care (01) ==
LOC: RAD 09:14
PROVIDERS: PCP Family Medicine; Visit Provider Internal Medicine
DX: J96.10 Chronic respiratory failure, unspecified whether with hypoxia or hypercapnia (principal); J43.8 Other emphysema; Z95.1 Presence of aortocoronary bypass graft; I70.0 Atherosclerosis of aorta; I25.10 Atherosclerotic heart disease of native coronary artery without angina pectoris; R91.8 Other nonspecific abnormal finding of lung field
CPT/HCPCS: 71250